=== PATIENT | male | born 1945 | race Caucasian/White ===

== ENCOUNTER → 2018-01-16 | Outpatient (CLI) | payer MEDICARE, MEDICAID ==
--- NOTE | 2018-01-16 09:57 | Diagnostic Imaging Report ---
PROCEDURE: CT abdomen and pelvis with contrast. TECHNIQUE: Multiple contiguous axial images were obtained through the abdomen and pelvis after administration of intravenous contrast. INDICATION: Abdominal pain. FINDINGS: The heart size is normal. There is some scarring or atelectasis in the lung bases. There is diffuse mucosal thickening in the stomach. The liver is normal in size without focal lesions. Gallbladder is surgically absent. There is no biliary ductal dilatation. There are some calcified granulomas in the spleen. The pancreas and adrenal glands are unremarkable. The kidneys are grossly normal in appearance. The abdominal aorta is nonaneurysmal. Bowel gas pattern is nonspecific. There is some diverticular disease without evidence of diverticulitis. There is no ascites. There is no free air. There are no focal inflammatory changes. Specifically, there is no CT evidence of appendicitis. There are mild degenerative changes in the spine. IMPRESSION: Diffuse mucosal thickening of the stomach. While this could conceivably be related to underdistention, the possibility of gastritis or underlying infiltrative process cannot be excluded. Recommend clinical correlation and if warranted followup with upper endoscopy. Diverticular disease without evidence of diverticulitis. No other acute abnormality in the abdomen or pelvis. Dictated by: Dictated on workstation # [id number]
== END ==
LOC: RAD 08:08
PROVIDERS: ATTEND Nurse Practitioner Family
DX: K57.30 Diverticulosis of large intestine without perforation or abscess without bleeding (principal); K31.89 Other diseases of stomach and duodenum; K59.00 Constipation, unspecified
CPT/HCPCS: 74177

== ENCOUNTER 2018-02-01 05:42 | Outpatient (CLI) | payer MEDICARE, MEDICAID ==
[~2018-02-01] VITALS: Ht 188 cm; Wt 79.8 kg
[2018-02-01] MEDS ORDERED: FAMO40TA6 PO (10:17)
[2018-02-01] MEDS ORDERED: PANT40TA3 PO (10:17)
[2018-02-01] MEDS ORDERED: METO-370 PO (10:17)
[2018-02-01] MEDS ORDERED: FLUT16SP22 NS (10:17)
[2018-02-01] MEDS ORDERED: DULO60CA58 PO (10:17)
[2018-02-01] MEDS ORDERED: GABA-490 PO (10:17)
[2018-02-01] MEDS ORDERED: ATOR20TA66 PO (10:17)
[2018-02-01] MEDS ORDERED: POLY17PO6 PO (10:17)
[2018-02-01] MEDS ORDERED: TRAZ150T72 PO (10:17)
[2018-02-01] MEDS ORDERED: BUDE10.2 IH (10:17)
[2018-02-01] MEDS ORDERED: UMEC62.5 IH (10:17)
[2018-02-01] MEDS ORDERED: SUCR1TAB PO (10:17)
[2018-02-01] MEDS ORDERED: LOSA100T8 PO (10:17)
[2018-02-01] MEDS ORDERED: SERT100T PO (10:17)
[2018-02-01] MEDS ORDERED: GABA800T2 PO (10:17)
[2018-02-01] MEDS ORDERED: [UNRECOGNIZED DRUG - CODE] PO ×2 (10:17)
[2018-02-01] MEDS ORDERED: RT-ALBUINH IH (10:17)
== END 2018-02-01 11:10 | disposition home or self-care (01) ==
LOC: PREOP 05:42
PROVIDERS: ATTEND Surgery
DX: Z01.818 Encounter for other preprocedural examination (principal)

== ENCOUNTER 2018-02-04 11:55 | Day surgery (SDC) | payer MEDICARE, MEDICAID ==
[~2018-02-04] VITALS: Ht 188 cm; Wt 79.8 kg
[~2018-02-04 11:55] MED LIST: ATOR20TA66 PO; BUDE10.2 IH; DULO60CA58 PO; FAMO40TA6 PO; FLUT16SP22 NS; GABA-490 PO; GABA800T2 PO; LOSA100T8 PO; METO-370 PO; PANT40TA3 PO; POLY17PO6 PO; RT-ALBUINH IH; SERT100T PO; SUCR1TAB PO; TRAZ150T72 PO; UMEC62.5 IH; [UNRECOGNIZED DRUG - CODE] PO
[2018-02-04] MEDS ORDERED: LACTATED RINGERS 1,000 ML IV ONE (12:01)
[2018-02-04] MEDS ORDERED: LACTATED RINGERS 1,000 ML IV STA (12:10)
[2018-02-04] MEDS ORDERED: HURRICAINE EXT TUBE (BENZOCAINE) XX PRN (12:15)
[2018-02-04] MEDS ORDERED: MEPERIDINE (DEMEROL) INJ 50 MG/ML ONE (12:58)
--- NOTE | 2018-02-04 13:13 | Progress Note-Pre Operative ---
Pre-Operative Progress Note H&P Reviewed The H&P was reviewed, patient examined and no changes noted. Time Seen by Provider: 13:10 Date H&P Reviewed: Feb 04, 2018 Time H&P Reviewed: 13:11 Pre-Operative Diagnosis: RUQ pain, Chronic Gastritis TAISHA CINTRON DO Feb 04, 2018 13:13
[2018-02-04] MEDS ORDERED: MEPERIDINE (DEMEROL) INJ 50 MG/ML IVP PRN (13:15)
[2018-02-04] MEDS ORDERED: PROPOFOL INJECTION 50 ML IV ONE (13:55)
[2018-02-04] MEDS ORDERED: MIDAZOLAM 2 MG/2 ML (VERSED) VIAL ONE ×2 (13:57→13:59)
--- NOTE | 2018-02-04 14:25 | Progress Note-Post Operative ---
Post-Operative Progess Note Surgeon (s)/Repossession Agent (s) Surgeon TAISHA CINTRON DO Repossession Agent: none Pre-Operative Diagnosis RUQ pain, Chronic Gastritis Post-Operative Diagnosis Duodenal polyp, Duodenitis Gastritis Hiatal Hernia Esophageal plaque Procedure & Operative Findings Date of Procedure 02/04/18 Procedure Performed/Findings EGD with snare polypectomy EGD with bx Anesthesia Type IV sedation by TURBINE MECHANIC Estimated Blood Loss Estimated blood loss (mL): scant Specimens/Packing Specimens Removed duodenal polyp x 2 Antral bx Esophageal bx TAISHA CINTRON DO Feb 04, 2018 14:25
--- NOTE | 2018-02-04 14:27 | Endoscopy Discharge Instruct ---
Endo Procedure/Findings Findings 1.: Polyp 2.: Gastritis 3.: Hiatal Hernia 4.: Other Findings (esophageal plaques) Discharge Instructions - Activity: You might feel a little sleepy until tomorrow. This is due to the medicine you received to relax you. Until tomorrow, you should: NOT drive a car, operate machinery or power tools. NOT drink any alcoholic beverages. NOT make any important decisions or sign importortant papers. Do not return to work until tomorrow, unless otherwise instructed. Resume previous activities tomorrow. Diet: Start by taking liquids. If you tolerate liquids, advance to solid food. make an appointment for one week Notify Physician - If you experience excessive bleeding, unusual abdominal pain, fever, or chest pain, contact your doctor immediately. Follow-Up: - I have received and understand the above instructions and will call my doctor if I have any further questions. Patient Signature Date Nurse Signature Other (Relationship) TAISHA CINTRON DO Feb 04, 2018 14:27
--- OUTSIDE RECORDS SUMMARY | 2018-02-04 14:35 | XMS REPORT ---
Author Author Reji Pretty Organization [employer] Address Unknown Phone Unavailable Care Team Providers Care Print Line Inspector Name Role Phone Reji Pretty CP Unavailable Allergies No Known Allergies Problems Problem Type Condition Code Onset Dates Condition Status Problem Gastro-esophageal reflux disease without esophagitis K21.9 Active Problem Anxiety disorder, unspecified F41.9 Active Problem Other chronic pain G89.29 Active Problem Essential (primary) hypertension I10 Active Problem Alcoholic liver disease, unspecified K70.9 Active Problem Anxiety disorder, unspecified F41.9 Active Problem Disorder of urea cycle metabolism, 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
--- OUTSIDE RECORDS SUMMARY | 2018-02-04 14:35 | XMS REPORT ---
Author Author Reji Pretty Organization [employer] Address Unknown Phone Unavailable Care Team Providers Care Cattle Knocker Name Role Phone Reji Pretty CP Unavailable [...]
--- OUTSIDE RECORDS SUMMARY | 2018-02-04 14:36 | XMS REPORT ---
Author Author Reji Pretty [facility] [employer] Address Unknown Phone Unavailable Care Team Providers Care Abstract Maker Name Role Phone Reji Pretty Unavailable Allergies No Known Allergies Problems Problem [...] obstructive pulmonary disease, unspecified J44.9 Active Medications Medication Code System Code Instructions Start Date End Date Status Dosage Atorvastatin Calcium [facility] [address]-18 20 MG Orally Once a day 1 tablet Escitalopram Oxalate [facility] [address]-78 20 MG Orally Once a day 0.5 tablet Trazodone HCl [facility] [address]-33 150 MG Orally Once a day - prescribed by radha-last filled 01/07/2016 2 tablets at bedtime Metoprolol Succinate ER [facility] [address]-55 50 MG Orally Once a day 1 tablet Aspirin [facility] [address]-40 325 MG Orally Once a day 1 tablet Pantoprazole Sodium [facility] [address]-25 40 MG Orally Once a day Nov 22, 2015 1 tablet Flonase [facility] [address]-46 50 MCG/ACT Nasally Once a day 1 spray in each nostril Ipratropium-Albuterol [facility] [address]-15 0.5-2.5 (3) MG/3ML Inhalation Four times a day 3 ml Advair Diskus [facility] [address]-21 250-50 MCG/DOSE Inhalation Twice a day June 15, 2015 1 puff immodium [facility] 0 Oral prn 1 tab Albuterol Sulfate [facility] [address]-76 (2.5 MG/3ML) 0.083% Inhalation Three times a day 3 ml Diovan [facility] [address]-34 160 MG Orally Twice a day 1 tablet Clonazepam [facility] [address]-24 1 MG Orally Twice a day 1 tablet Colace [facility] [address]-10 100 MG Orally 3 Times a day 1 capsule as needed Sucralfate [facility] [address]-16 1 GM Orally QID 1 tablet Results No Known Results Summary Purpose [employer] Submission
--- OUTSIDE RECORDS SUMMARY | 2018-02-04 14:36 | XMS REPORT ---
Author Author Norma Rodriguez [facility] [employer] Address Unknown Phone Unavailable Care Team Providers Care Radio Interference Expert Name Role Phone Norma Rodriguez Unavailable Allergies No Known Allergies Problems Problem Type Condition Code Onset Dates Condition Status Problem Essential (primary) hypertension I10 Active Problem Chronic obstructive pulmonary disease, unspecified J44.9 Active Problem Major depressive disorder, recurrent severe without psychotic features F33.2 Active Problem Mixed hyperlipidemia E78.2 Active Problem Other chronic pain G89.29 Active Problem Gastro-esophageal reflux disease without esophagitis K21.9 Active Problem Insomnia, unspecified G47.00 Active Problem Anxiety disorder, unspecified F41.9 Active Medications No Known Medications Results No Known Results Summary Purpose [employer] Submission
--- OUTSIDE RECORDS SUMMARY | 2018-02-04 14:36 | XMS REPORT ---
Author Author Marco Munoz Organization [facility] Address [address] [place], [place] [id number] Care Team Providers Care Director Television Name Role Phone Marco Munoz PCP Marco Munoz PreferredProvider Allergies and Adverse Reactions Name Reaction Notes fentanyl NSAIDS Reglan Ketorolac morphine Plan of Treatment Planned Activity Comments Planned Date Planned Time Plan/Goal ABDOMEN 2 VIEW DECUB/UPRIGHT 03/09/2017 12:00 AM CBC W/ AUTO DIFF (RFLX MAN DIFF IF IND). 05/25/2017 12:00 AM CMP 05/25/2017 12:00 AM CPK WITH CKMB 05/25/2017 12:00 AM CPK WITH CKMB 05/25/2017 12:00 AM Troponin I blood 05/25/2017 12:00 AM Chest x-ray, PA and lateral 05/25/2017 12:00 AM Culture and sensitivity of specimen 06/26/2017 12:00 AM Medications Active Name Start Date Estimated Completion Date SIG Comments Ventolin HFA 90 mcg/actuation inhalation HFA aerosol inhaler inhale 1 puff by inhalation route every 4 hours as needed Flonase Sensimist 27.5 mcg/actuation nasal spray,suspension inhale 1 puff by nasal route daily Saline Nasal 0.65 % nasal aerosol,spray apply 1 spray by nasal route daily as needed Symbicort 160-4.5 mcg/actuation inhalation HFA aerosol inhaler 03/21/2017 inhale 2 puffs by inhalation route 2 times per day in the morning and evening fluticasone 50 mcg/actuation nasal spray,suspension 04/04/2017 inhale 1 spray (50 mcg) in each nostril by intranasal route once daily Gaviscon 95-358 mg/15 mL oral suspension 05/25/2017 take 30 milliliters by oral route 4 times a day as needed lactulose 20 gram/30 mL oral solution 08/09/2017 take 30 milliliters by oral route 2 times a day as needed atorvastatin 20 mg oral tablet 09/05/2017 TAKE ONE TABLET BY MOUTH ONCE DAILY valsartan 160 mg oral tablet 09/05/2017 TAKE ONE TABLET (160mg) BY MOUTH TWICE DAILY pantoprazole 40 mg oral tablet,delayed release (DR/EC) 09/05/2017 TAKE ONE TABLET BY MOUTH DAILY sucralfate 1 gram oral tablet 09/05/2017 take 1 tablet by oral route 4 times a day as needed metoprolol succinate 50 mg oral tablet extended release 24 hr 09/05/2017 TAKE ONE TABLET BY MOUTH DAILY famotidine 40 mg oral tablet 09/05/2017 1 tablet po at HS gabapentin 400 mg oral capsule 09/05/2017 TAKE ONE CAPSULE BY MOUTH BID gabapentin 800 mg oral tablet 09/05/2017 take 1 tablet (800 mg) by oral route at HS thiamine HCl (vitamin B1) 100 mg oral tablet take 1 tablet by oral route daily Cymbalta 30 mg oral capsule,delayed release(DR/EC) take 3 capsules by oral route once a day (at bedtime) oxycodone 15 mg oral tablet 10/15/2017 11/14/2017 take 1 tablet by oral route TID, may have 1 tablet at HS PRN Chantix Starting Month Box 0.5 mg (11)- 1 mg (42) oral tablets,dose pack 2017 take as directed Incruse Ellipta 62.5 mcg/actuation inhalation blister with device 11/06/2017 inhale 1 puff (62.5 mcg) by inhalation route once daily at the same time each day trazodone 300 mg oral tablet take 1 tablet by oral route once a day (at bedtime) Name Start Date Expiration Date SIG Comments Cymbalta 60 mg oral capsule,delayed release(DR/EC) take 1 capsule by oral route 2 times a day mirtazapine 15 mg oral tablet take 3 tablets by oral route once a day ( at bedtime) quetiapine 25 mg oral tablet take 2 tablets by oral route once a day ( at bedtime) quetiapine 50 mg oral tablet 03/09/2017 03/09/2017 TAKE ONE TABLET (50mg) BY MOUTH AT BEDTIME Bactrim DS 800-160 mg oral tablet 06/26/2017 take 1 tablet by oral route every 12 hours for 7 days trazodone 150 mg oral tablet 09/05/2017 03/04/2018 take 1 tablet by oral route once a day (at bedtime) for 30 days mirtazapine 30 mg oral tablet 09/05/2017 1 tab po daily at HS duloxetine 60 mg oral capsule,delayed release(DR/EC) 09/05/2017 TAKE ONE CAPSULE BY MOUTH DAILY at HS duloxetine 30 mg oral capsule,delayed release(DR/EC) 09/05/2017 take 1 capsule by oral route QD in AM Discontinued Name Start Date Discontinued Date SIG Comments Multi Vitamin 9 mg iron/15 mL oral liquid 09/18/2017 oxycodone 5 mg oral capsule 02/15/2017 take 3 capsules by oral route 4 times a day oxycodone 5 mg oral capsule 02/23/2017 take 3 capsules by oral route TID , may have 3 tabs at HS PRN folic acid 1 mg oral tablet 09/05/2017 09/18/2017 TAKE ONE TABLET BY MOUTH DAILY Complete Senior oral tablet 09/05/2017 09/18/2017 take 1 tablet by oral route daily trazodone 100 mg oral tablet 11/07/2017 take 2.5 tablets by oral route once a day (at bedtime) Problem List Not available. Vital Signs Date Time BP-Sys(mm[Hg] BP-Sherry(mm[Hg]) HR(bpm) RR(rpm) Temp WT HT HC BMI BSA BMI Percentile O2 Sat(%) 10/15/2017 8:00:00 AM 142 mmHg 66 mmHg 66 bpm 16 rpm 98.1 F 187 lbs 73 in 24.6714 kg/m 2.0902 m 93 % 08/09/2017 1:49:00 PM 132 mmHg 74 mmHg 84 bpm 18 rpm 98.1 F 189.375 lbs 93 % 06/26/2017 9:36:00 AM 136 mmHg 76 mmHg 68 bpm 16 rpm 96 F 190.375 lbs 98 % 05/25/2017 4:02:00 PM 146 mmHg 72 mmHg 70 bpm 16 rpm 98 F 183 lbs 98 % 02/14/2017 5:50:00 PM 128 mmHg 68 mmHg 84 bpm 20 rpm 96.3 F 185 lbs 73 in 24.4076 kg/m 2.079 m 94 % Social History Name Description Comments Tobacco Current every day smoker assisted living currently at [facility] in [place] Alcohol Former History of Procedures Date Ordered Description Order Status 03/13/2017 12:00 AM X-RAY EXAM OF ABDOMEN Reviewed 10/15/2017 12:00 AM COMPLETE CBC W/AUTO DIFF WBC Reviewed 10/15/2017 12:00 AM COMPREHEN METABOLIC PANEL Reviewed 10/15/2017 12:00 AM LIPID PANEL Reviewed 10/15/2017 12:00 AM ASSAY THYROID STIM HORMONE Reviewed 10/15/2017 12:00 AM ASSAY OF FREE THYROXINE Reviewed Results Summary Date and Description Results 10/15/2017 10:05 AM WBC 6.4 RBC 5.57 HGB 17.8 HCT 53.0 MCV 95 MCH 32.0 MCHC 33.6 RDW SD 46 RDW CV 13.0 MPV 10.4 PLT 174 NRBC# 0.00 NRBC% 0.0 %NEUT 69.5 % LYMP 21.0 %MONO 6.7 %EOS 1.7 %BASO 0.9 #NEUT 4.48 #LYMP 1.35 #MONO 0.43 #EOS 0.11 #BASO 0.06 MANUAL DIFF NOT IND GLUCOSE 111 SODIUM 137 POTASSIUM 4.9 CHLORIDE 107 CO2 20 BUN 17 CREATININE 1.0 SGOT/AST 22 SGPT/ALT 14 ALK PHOS 94 TOTAL PROTEIN 7.4 ALBUMIN 4.4 TOTAL BILI 0.5 CALCIUM 9.6 AGE 72 GFR NonAA 74 GFR AA 90 eGFR 74 eGFR AA* >60 TRIGLYCERIDES 65 CHOLESTEROL 129 HDL 45 TOT CHOL/ HDL 2.9 LDL (CALC) 71 TSH 0.47 FREE T4 1.34 History Of Immunizations Not available. 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 History of falling shelter medication use History of sudden cardiac arrest successfully resuscitated Alcohol abuse COPD Hypertension Osteoarthritis of hip, unspecified Asthma Chronic pain Nicotine dependence CAD (coronary artery disease) GERD Atrial Fibrillation Low Back Pain Feb 15 2017 9:40AM Fatigue Feb 15 2017 9:40AM Depression with anxiety Feb 15 2017 9:40AM COPD (chronic obstructive pulmonary disease) Feb 15 2017 9:40AM CAD (coronary artery disease) Feb 15 2017 9:40AM GERD (gastroesophageal reflux disease) Feb 15 2017 9:40AM Hemiplegia affecting left nondominant side Feb 15 2017 9:40AM Hypertension Feb 15 2017 9:40AM Pain in right hip Feb 15 2017 9:40AM Other chronic pain Feb 15 2017 9:40AM Pain in right hand Feb 15 2017 9:40AM Pain in left hand Feb 15 2017 9:40AM Nocturia more than twice per night Feb 15 2017 9:40AM Benign prostatic hyperplasia with lower urinary tract symptoms Feb 15 2017 9: 40AM Other retention of urine Feb 15 2017 9:40AM BPH (benign prostatic hyperplasia) Feb 15 2017 9:40AM Snoring Feb 15 2017 9:40AM Hypoxia Feb 15 2017 9:40AM Unspecified abdominal pain Mar 09 2017 12:14PM Abdominal adhesions Mar 09 2017 12:14PM Constipation Mar 09 2017 12:14PM Unspecified abdominal pain Mar 13 2017 2:42PM Abdominal adhesions Mar 13 2017 2:42PM Constipation Mar 13 2017 2:42PM Chest pain May 25 2017 4:11PM GERD (gastroesophageal reflux disease) May 25 2017 4:11PM Constipation May 25 2017 4:11PM Lower extremity weakness May 25 2017 4:11PM Abscess Jun 26 2017 9:43AM Low Back Pain Aug 09 2017 1:57PM Chronic pain Aug 09 2017 1:57PM Hemiplegia affecting left nondominant side Aug 09 2017 1:57PM Pain in right hip Aug 09 2017 1:57PM Other chronic pain Aug 09 2017 1:57PM Insomnia Aug 09 2017 1:57PM Low Back Pain Oct 15 2017 8:07AM Chronic pain Oct 15 2017 8:07AM Fatigue Oct 15 2017 8:07AM Osteoarthritis of hip, unspecified Oct 15 2017 8:07AM Hypertension Oct 15 2017 8:07AM Hyperlipidemia Oct 15 2017 8:07AM Weakness of both legs Oct 15 2017 8:07AM Payers Insurance Name Company Name Plan Name Plan Number Policy Number Policy Group Number Start Date Medicare [facility] Medicare [facility] [id number] N/A [facility] [id number] N/A Medicare Part B Medicare Of [place] [id number] N/A Medicare Part A Medicare - Lab/Xray [id number] N/A History of Encounters Visit Date Visit Type Provider 10/15/2017 Office visit Marco Munoz CHIEF STEWARD/STEWARDESS 08/09/2017 Office visit Marco Munoz CHIEF STEWARD/STEWARDESS 06/26/2017 Office visit Marco Munoz CHIEF STEWARD/STEWARDESS 05/25/2017 Office visit Marco Munoz NP 02/14/2017 Office visit Marco Munoz NP
--- OUTSIDE RECORDS SUMMARY | 2018-02-04 14:36 | XMS REPORT ---
Author Author Satish Hurt [facility] Address [address] [place], [place] [id number] Care Team Providers Care Thread Checker Name Role Phone Satish Hurt PCP Marco Munoz PreferredProvider Allergies and Adverse [...] and sensitivity of specimen 06/26/2017 12:00 AM Abdomen 2View Decub/Upright- Main 01/07/2018 12:00 AM Complete metabolic profile 01/10/2018 12:[address] ABD AND PELVIS W/CONTRAST 01/11/2018 12:00 AM Medications Active Name Start Date Estimated Completion Date SIG Comments Ventolin HFA 90 mcg/actuation inhalation HFA aerosol inhaler inhale 1 puff by inhalation route every 4 hours as needed Flonase Sensimist 27.5 mcg/actuation nasal spray,suspension inhale 1 puff by nasal route daily Saline Nasal 0.65 % nasal aerosol,spray apply 1 spray by nasal route daily as needed Gaviscon 95-358 mg/15 mL oral suspension 05/25/2017 take 30 milliliters by oral route 4 times a day as needed atorvastatin 20 mg oral tablet 09/05/2017 TAKE ONE TABLET BY MOUTH ONCE DAILY pantoprazole 40 mg oral tablet,delayed release [...] (800 mg) by oral route at HS Cymbalta 30 mg oral capsule,delayed release(DR/EC) take 3 capsules by oral route once a day (at bedtime) Incruse Ellipta 62.5 mcg/actuation inhalation blister with device 11/06/2017 inhale 1 puff (62.5 mcg) by inhalation route once daily at the same time each day trazodone 300 mg oral tablet take 1 tablet by oral route once a day (at bedtime) Symbicort 160-4.5 mcg/actuation inhalation HFA aerosol inhaler 11/15/2017 inhale 2 puffs by inhalation route 2 times per day in the morning and evening losartan 100 mg oral tablet 11/27/2017 02/25/2018 take 1 tablet (100 mg) by oral route once daily for 30 days Systane (propylene glycol) 0.4-0.3 % ophthalmic (eye) drops 12/24/2017 instill 2 drops in affected eye 3 times a day as needed fluticasone 50 mcg/actuation nasal spray,suspension 12/27/2017 inhale 1 spray (50 mcg) in each nostril by intranasal route once daily oxycodone 15 mg oral tablet 01/07/2018 02/06/2018 take 1 tablet by oral route TID, may have 1 tablet at HS PRN Miralax 17 gram/dose oral powder 01/07/2018 use as directed by oral route daily as needed Name Start Date Expiration Date SIG Comments [...] route every 12 hours for 7 days lactulose 20 gram/30 mL oral solution 08/09/2017 take 30 milliliters by oral route 2 times a day as needed trazodone 150 mg oral tablet 09/05/2017 03/04/2018 [...] capsule by oral route QD in AM Chantix Starting Month Box 0.5 mg (11)- 1 mg (42) oral tablets,dose pack 2017 take as directed Discontinued Name Start Date Discontinued Date SIG Comments Multi Vitamin 9 mg iron/15 mL oral liquid 09/18/2017 oxycodone 5 mg oral capsule 02/15/2017 take 3 capsules by oral route 4 times a day oxycodone 5 mg oral capsule 02/23/2017 take 3 capsules by oral route TID , may have 3 tabs at HS PRN valsartan 160 mg oral tablet 09/05/2017 11/27/2017 TAKE ONE TABLET (160mg) BY MOUTH TWICE DAILY recalled folic acid 1 mg oral tablet 09/05/2017 09/18/2017 TAKE ONE TABLET BY MOUTH DAILY Complete Senior oral tablet 09/05/2017 09/18/2017 take 1 tablet by oral route daily thiamine HCl (vitamin B1) 100 mg oral tablet 11/30/2017 take 1 tablet by oral route daily trazodone 100 mg oral tablet 11/07/2017 take 2.5 tablets by oral route once a day (at bedtime) Problem List Not available. Vital Signs Date Time BP-Sys(mm[Hg] BP-Sherry(mm[Hg]) HR(bpm) RR(rpm) Temp WT HT HC BMI BSA BMI Percentile O2 Sat(%) 01/07/2018 1:55:00 PM 130 mmHg 60 mmHg 74 bpm 20 rpm 97.7 F 180.375 lbs 73 in 23.7974 kg/m 2.0528 m 95 % 10/15/2017 8:00:00 AM 142 mmHg 66 mmHg 66 bpm 16 rpm 98.1 F 187 lbs 73 in 24.67 kg/m2 2.09 m2 93 % 08/09/2017 1:49:00 PM 132 mmHg [...] every day smoker assisted living currently at [facility] in [place] Alcohol Former History of Procedures Date Ordered [...] Illness Name Date of Onset Comments Anxiety Disorder Depression Major Depression (Single Episode) Heart disease Atherosclerosis of coronary artery of [place] heart without angina pectoris Alzheimer's Disease Dementia in conditions classified elsewhere without behavioral disturbance Myocardial Infarction, History 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 History of falling buttermaker helper medication use History of sudden cardiac arrest [...] of both legs Oct 15 2017 8:07AM Abdominal pain Jan 07 2018 1:59PM Constipation Jan 07 2018 1:59PM Chronic pain Jan 07 2018 1:59PM Payers Insurance Name Company Name Plan Name Plan Number Policy Number Policy Group Number Start Date Medicare RHC Medicare RHC [id number] N/A [facility] [id number] N/A Medicare Part B Medicare Of [place] [id number] N/A Medicare Part A Medicare - Lab/Xray [id number] N/A History of Encounters Visit Date Visit Type Provider 01/07/2018 Office visit Satish Hurt DIANETICIST 10/15/2017 Office visit Marco Munoz BUILDING CARPENTER HELPER 08/09/2017 Office visit Marco Munoz BUILDING CARPENTER HELPER 06/26/2017 Office visit Marco Munoz NP 05/25/2017 Office visit Marco Munoz NP 02/14/2017 Office visit Marco Munoz BUILDING CARPENTER HELPER
--- OUTSIDE RECORDS SUMMARY | 2018-02-04 14:37 | XMS REPORT ---
Author Author Marco Munoz Organization [facility] Address [address] [place], [place] [id number] Care Team Providers Care Resident Associate Name Role Phone Marco Munoz PCP Marco Munoz PreferredProvider Allergies and Adverse Reactions Name Reaction Notes fentanyl NSAIDS Reglan Ketorolac morphine Plan of Treatment Not available. Medications Active Name Start Date Estimated Completion Date SIG Comments Ventolin HFA 90 mcg/actuation inhalation HFA aerosol inhaler inhale 1 puff by inhalation route every 4 hours as needed atorvastatin 20 mg oral tablet take 1 tablet (20 mg) by oral route once daily Symbicort 160-4.5 mcg/actuation inhalation HFA aerosol inhaler inhale 2 puffs by inhalation route 2 times per day in the morning and evening Cymbalta 60 mg oral capsule,delayed release(DR/EC) take 1 capsule by oral route 2 times a day famotidine 20 mg oral tablet take 2 tablets (40 mg) by oral route once daily at bedtime Flonase Sensimist 27.5 mcg/actuation nasal spray,suspension inhale 1 puff by nasal route daily folic acid 1 mg oral tablet take 1 tablet (1 mg) by oral route once daily gabapentin 400 mg oral capsule take 1 capsule by oral route TID with meals, 2 caps po at HS metoprolol succinate 50 mg oral tablet extended release 24 hr take 1 tablet (50 mg) by oral route once daily mirtazapine 15 mg oral tablet take 3 tablets by oral route once a day ( at bedtime) Multi Vitamin 9 mg iron/15 mL oral liquid Incruse Ellipta 62.5 mcg/actuation inhalation blister with device 02/14/2017 inhale 1 puff (62.5 mcg) by inhalation route once daily at the same time each day Complete Senior oral tablet take 1 tablet by oral route daily pantoprazole 40 mg oral tablet,delayed release (DR/EC) take 1 tablet ( 40 mg) by oral route once daily quetiapine 25 mg oral tablet take 2 tablets by oral route once a day ( at bedtime) Saline Nasal 0.65 % nasal aerosol,spray apply 1 spray by nasal route daily as needed sucralfate 1 gram oral tablet take 1 tablet by oral route 4 times a day as needed trazodone 100 mg oral tablet take 3 tablets by oral route once a day ( at bedtime) valsartan 80 mg oral tablet take 2 tablets by oral route 2 times a day B12 5,000-100 mcg sublingual lozenge dissolve 1 lozenge by sublingual route daily oxycodone 15 mg oral tablet 04/20/2017 05/20/2017 take 1 tablet by oral route TID, may have 1 tablet at HS PRN Discontinued Name Start Date Discontinued Date SIG Comments oxycodone 5 mg oral capsule 02/15/2017 take 3 capsules by oral route 4 times a day oxycodone 5 mg oral capsule 02/23/2017 take 3 capsules by oral route TID , may have 3 tabs at HS PRN Problem List Not available. Vital Signs Date Time BP-Sys(mm[Hg] BP-Sherry(mm[Hg]) HR(bpm) RR(rpm) Temp WT HT HC BMI BSA BMI Percentile O2 Sat(%) 02/14/2017 5:50:00 PM 128 mmHg 68 mmHg 84 bpm 20 rpm 96.3 F 185 lbs 73 in 24.41 kg/m2 2.08 m2 94 % Social History Name Description Comments Tobacco Current every day smoker assisted living History of Procedures Not available. Results Summary Not available. History Of Immunizations Not available. 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
--- OUTSIDE RECORDS SUMMARY | 2018-02-04 14:37 | XMS REPORT ---
Author Marco Murillo Organization [facility] Address [address] [place], [place] [id number] Care Team Providers Care Psychometrician Name Role Phone Marco Munoz PCP Marco Munoz PreferredProvider Allergies and Adverse Reactions Name Reaction Notes fentanyl NSAIDS Reglan Ketorolac morphine Plan of Treatment Planned Activity Comments Planned Date Planned Time Plan/Goal ABDOMEN 2 VIEW DECUB/UPRIGHT 03/09/2017 12:00 AM Medications Active Name Start Date Estimated Completion Date SIG Comments Ventolin HFA 90 mcg/actuation inhalation HFA aerosol inhaler inhale 1 puff by inhalation route every 4 hours as needed Cymbalta 60 mg oral capsule,delayed release(DR/EC) take 1 capsule by oral route 2 times a day Flonase Sensimist 27.5 mcg/actuation nasal spray,suspension inhale 1 puff by nasal route daily mirtazapine 15 mg oral tablet take 3 tablets by oral route once a day ( at bedtime) Multi Vitamin 9 mg iron/15 mL oral liquid Incruse Ellipta 62.5 mcg/actuation inhalation blister with device 02/14/2017 inhale 1 puff (62.5 mcg) by inhalation route once daily at the same time each day Complete Senior oral tablet take 1 tablet by oral route daily quetiapine 25 mg oral tablet take [...] may have 1 tablet at HS PRN Symbicort 160-4.5 mcg/actuation inhalation HFA aerosol inhaler 03/21/2017 inhale 2 puffs by inhalation route 2 times per day in the morning and evening Name Start Date Expiration Date SIG Comments pantoprazole 40 mg oral tablet,delayed release (DR/EC) 03/09/2017 03/09/2017 TAKE ONE TABLET BY MOUTH DAILY quetiapine 50 mg oral tablet 03/09/2017 03/09/2017 TAKE ONE TABLET (50mg) BY MOUTH AT BEDTIME metoprolol succinate 50 mg oral tablet extended release 24 hr 03/09/20172016 TAKE ONE TABLET BY MOUTH DAILY gabapentin 400 mg oral capsule 03/09/2017 03/09/2017 TAKE ONE CAPSULE BY MOUTH THREE TIMES DAILY WITH meals AND TAKE TWO CAPSULES AT BEDTIME trazodone 150 mg oral tablet 03/09/2017 03/09/2017 TAKE TWO TABLETS (300mg) BY MOUTH AT BEDTIME mirtazapine 45 mg oral tablet 03/09/2017 03/09/2017 TAKE ONE TABLET (45mg) BY MOUTH AT BEDTIME folic acid 1 mg oral tablet 03/09/2017 03/09/2017 TAKE ONE TABLET BY MOUTH DAILY valsartan 160 mg oral tablet 03/09/2017 03/09/2017 TAKE ONE TABLET (160mg) BY MOUTH TWICE DAILY duloxetine 60 mg oral capsule,delayed release(DR/EC) 03/09/2017 03/09/2017 TAKE ONE CAPSULE BY MOUTH TWICE DAILY atorvastatin 20 mg oral tablet 03/09/2017 03/09/2017 TAKE ONE TABLET BY MOUTH ONCE DAILY famotidine 20 mg oral tablet 03/09/2017 03/09/2017 TAKE TWO TABLETS BY MOUTH AT BEDTIME Discontinued Name Start Date Discontinued Date SIG [...] day smoker assisted living History of Procedures Date Ordered Description Order Status 03/13/2017 12:00 AM X-RAY EXAM OF ABDOMEN Reviewed Results Summary Not available. History Of Immunizations Not available. 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
--- OUTSIDE RECORDS SUMMARY | 2018-02-04 14:37 | XMS REPORT ---
Author Author Marco Munoz Organization [facility] Address [address] [place], [place] [id number] Care Team Providers Care Industrial Machine Assembler Name Role Phone Marco Munoz PCP Marco [...] (800 mg) by oral route at HS Incruse Ellipta 62.5 mcg/actuation inhalation blister with device 10/12/2017 inhale 1 puff (62.5 mcg) by inhalation route once daily at the same time each day thiamine HCl (vitamin B1) 100 mg oral tablet take 1 tablet by oral route daily trazodone 100 mg oral tablet take 2.5 tablets by oral route once a day ( at bedtime) Cymbalta 30 mg oral capsule,delayed release(DR/EC) take 3 capsules by oral route once a day (at bedtime) oxycodone 15 mg oral tablet 10/15/2017 11/14/2017 take 1 tablet by oral route TID, may have 1 tablet at HS PRN Name Start Date Expiration Date SIG Comments [...] take 1 tablet by oral route daily Problem List Not available. 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 [id number] N/A Medicare Part B Medicare Of [place] [id number] N/A Medicare Part A Medicare - Lab/Xray [id number] N/A History of Encounters Visit Date Visit Type Provider 10/15/2017 Office visit Marco Munoz SECONDARY MARKET MANAGER 08/09/2017 Office visit Marco Munoz SECONDARY MARKET MANAGER 06/26/2017 Office visit Marco Munoz SECONDARY MARKET MANAGER 05/25/2017 Office visit Marco Munoz NP 02/14/2017 Office visit Marco Munoz SECONDARY MARKET MANAGER
--- OUTSIDE RECORDS SUMMARY | 2018-02-04 14:37 | XMS REPORT ---
Author Marco Murillo Organization [facility] Address [address] [place], [place] [id number] Care Team Providers Care Bread Stacker Name Role Phone Marco Munoz PCP Marco [...] inhale 1 puff by nasal route daily Multi Vitamin 9 mg iron/15 mL oral liquid quetiapine 25 mg oral tablet take 2 [...] route 4 times a day as needed Incruse Ellipta 62.5 mcg/actuation inhalation blister with device 07/03/2017 inhale 1 puff (62.5 mcg) by inhalation route once daily at the same time each day lactulose 20 gram/30 mL oral solution 08/09/2017 [...] route 4 times a day as needed folic acid 1 mg oral tablet 09/05/2017 TAKE ONE TABLET BY MOUTH DAILY metoprolol succinate 50 mg oral tablet extended release 24 hr 09/05/2017 TAKE ONE TABLET BY MOUTH DAILY Complete Senior oral tablet 09/05/2017 take 1 tablet by oral route daily trazodone 150 mg oral tablet 09/05/2017 03/04/2018 take 1 tablet by oral route once a day (at bedtime) for 30 days famotidine 40 mg oral tablet 09/05/2017 1 tablet po at HS mirtazapine 30 mg oral tablet 09/05/2017 1 tab po daily at HS duloxetine 60 mg oral capsule,delayed release(DR/EC) 09/05/2017 TAKE ONE CAPSULE BY MOUTH DAILY at HS duloxetine 30 mg oral capsule,delayed release(DR/EC) 09/05/2017 take 1 capsule by oral route QD in AM gabapentin 400 mg oral capsule 09/05/2017 TAKE ONE CAPSULE BY MOUTH BID gabapentin 800 mg oral tablet 09/05/2017 take 1 tablet (800 mg) by oral route at HS oxycodone 15 mg oral tablet 09/06/2017 10/06/2017 take 1 tablet by oral route TID, may have 1 tablet at HS PRN Name Start Date Expiration Date SIG Comments mirtazapine 15 mg oral tablet take 3 tablets by oral route once a day ( at bedtime) quetiapine 50 mg oral tablet 03/09/2017 03/09/2017 TAKE ONE TABLET (50mg) BY MOUTH AT BEDTIME Bactrim DS 800-160 mg oral tablet 06/26/2017 take 1 tablet by oral route every 12 hours for 7 days Discontinued Name Start Date Discontinued Date SIG [...] HC BMI BSA BMI Percentile O2 Sat(%) 08/09/2017 1:49:00 PM 132 mmHg 74 mmHg [...] every day smoker assisted living currently at [facility] in [place] Alcohol Former History of Procedures Date Ordered Description Order Status 03/13/2017 12:00 AM X-RAY EXAM OF ABDOMEN Reviewed Results Summary Not available. History Of Immunizations Not available. 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 History of falling snf medication use History of sudden cardiac arrest [...] 2017 1:57PM Insomnia Aug 09 2017 1:57PM Payers Insurance Name Company Name Plan Name Plan Number Policy Number Policy Group Number Start Date Medicare RHC Medicare RHC [id number] N/A [facility] [id number] N/A Medicare Part B Medicare Of [place] [id number] N/A Medicare Part A Medicare - Lab/Xray [id number] N/A History of Encounters Visit Date Visit Type Provider 08/09/2017 Office visit Marco Munoz MILL HAND 06/26/2017 Office visit Marco Munoz NP 05/25/2017 Office visit Marco Munoz MILL HAND 02/14/2017 Office visit Marco Munoz NP
--- OUTSIDE RECORDS SUMMARY | 2018-02-04 14:38 | XMS REPORT ---
Author Marco Murillo Organization [facility] Address [address] [place], [place] [address] Care Team Providers Care Tower Attendant Name Role Phone Marco Munoz PCP Marco [...] may have 1 tablet at HS PRN pantoprazole 40 mg oral tablet,delayed release (DR/EC) [...] 03/09/2017 TAKE ONE TABLET BY MOUTH DAILY Discontinued Name Start Date Discontinued Date SIG [...] Heart disease Atherosclerosis of coronary artery of [place] heart without angina pectoris Alzheimer's Disease Dementia [...] 2017 12:14PM Constipation Mar 09 2017 12:14PM Payers Insurance Name Company Name Plan Name Plan Number Policy Number Policy Group Number Start Date Medicare Part B Medicare Of [place] [id number] N/A [facility] [id number] N/A History of Encounters Visit Date Visit Type Provider 02/14/2017 Office visit Marco Munoz NP
--- OUTSIDE RECORDS SUMMARY | 2018-02-04 14:38 | XMS REPORT ---
Author Marco Murillo Organization [facility] Address [address] [place], [place] [id number] Care Team Providers Care Vocational Evaluator Name Role Phone Marco Munoz PCP Unavailable Marco Munoz PreferredProvider Unavailable Allergies and Adverse Reactions Name Reaction Notes [...] 1 lozenge by sublingual route daily oxycodone 5 mg oral capsule take 3 capsules by oral route TID, may have 3 tabs at HS PRN Discontinued Name Start Date Discontinued Date SIG Comments oxycodone 5 mg oral capsule 02/15/2017 take 3 capsules by oral route 4 times a day Problem List Not available. 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
--- OUTSIDE RECORDS SUMMARY | 2018-02-04 14:38 | XMS REPORT ---
Author Marco Murillo Organization [facility] Address [address] [place], [place] [address] Care Team Providers Care Child Health Associate Name Role Phone Marco Munoz PCP [...] Vitamin 9 mg iron/15 mL oral liquid Complete Senior oral tablet take 1 tablet [...] dissolve 1 lozenge by sublingual route daily Symbicort 160-4.5 mcg/actuation inhalation HFA aerosol [...] daily at the same time each day oxycodone 15 mg oral tablet 08/09/2017 09/08/2017 take 1 tablet by oral route TID, may have 1 tablet at HS PRN lactulose 20 gram/30 mL oral solution 08/09/2017 take 30 milliliters by oral route 2 times a day as needed trazodone 150 mg oral tablet 08/09/2017 10/08/2017 take 1 tablet by oral route once a day (at bedtime) for 30 days Name Start Date Expiration Date SIG Comments [...] meals AND TAKE TWO CAPSULES AT BEDTIME mirtazapine 45 mg oral tablet [...] TAKE TWO TABLETS BY MOUTH AT BEDTIME Bactrim DS 800-160 [...] every day smoker assisted living currently at [facility] in [place] Alcohol Former History of Procedures Date Ordered Description Order Status 03/13/2017 12:00 AM X-RAY EXAM OF ABDOMEN Reviewed Results Summary Not available. History Of Immunizations Not available. 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
--- OUTSIDE RECORDS SUMMARY | 2018-02-04 14:38 | XMS REPORT ---
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
--- OUTSIDE RECORDS SUMMARY | 2018-02-04 14:38 | XMS REPORT ---
Author Marco Murillo Organization [facility] Address [address] [place], [place] [address] Care Team Providers Care Hydrotel Operator Name Role Phone Marco Munoz PCP Marco [...] Atherosclerosis of coronary artery of [place] heart without angina pectoris Alzheimer's Disease Dementia [...] Date Medicare Part B Medicare Of [place] [id number] N/A [facility] [id number] N/A History of Encounters Visit Date Visit Type Provider 02/14/2017 Office visit Marco Munoz NP
--- OUTSIDE RECORDS SUMMARY | 2018-02-04 14:39 | XMS REPORT ---
Author Marco Murillo Organization [facility] Address [address] [place], [place] [address] Care Team Providers Care Florist Name Role Phone Marco Munoz PCP Marco Munoz PreferredProvider Allergies and Adverse Reactions Name Reaction Notes fentanyl NSAIDS Reglan Ketorolac morphine Plan of Treatment Planned Activity Comments Planned Date Planned Time Plan/Goal ABDOMEN 2 VIEW DECUB/UPRIGHT 03/09/2017 12:00 AM ABDOMEN 2 VIEW DECUB/UPRIGHT 03/13/2017 12:00 AM Medications Active Name Start Date Estimated Completion Date SIG Comments Ventolin HFA 90 mcg/actuation inhalation HFA aerosol inhaler inhale 1 puff by inhalation route every 4 hours as needed Symbicort 160-4.5 mcg/actuation inhalation HFA [...] Heart disease Atherosclerosis of coronary artery of [place] heart without angina pectoris Alzheimer's Disease Dementia in conditions classified elsewhere without behavioral disturbance Myocardial Infarction, History 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
--- OUTSIDE RECORDS SUMMARY | 2018-02-04 14:39 | XMS REPORT ---
Author Marco Murillo Organization [facility] Address [address] [place], [place] [address] Care Team Providers Care Car And Yard Supervisor Name Role Phone Marco Munoz PCP Marco [...] route 4 times a day as needed oxycodone 15 mg oral tablet 06/13/2017 07/13/2017 take 1 tablet by oral route TID, may have 1 tablet at HS PRN Bactrim DS 800-160 mg oral tablet 06/26/2017 take 1 tablet by oral route every 12 hours for 7 days Name Start Date Expiration Date SIG [...] TAKE TWO TABLETS BY MOUTH AT BEDTIME Incruse Ellipta 62.5 mcg/actuation inhalation blister with device 06/12/201706/12/2017 inhale 1 puff (62.5 mcg) by inhalation route once daily at the same time each day Discontinued Name Start Date Discontinued Date SIG [...] HC BMI BSA BMI Percentile O2 Sat(%) 06/26/2017 9:36:00 AM 136 mmHg 76 mmHg [...] Heart disease Atherosclerosis of coronary artery of [place] heart without angina pectoris Alzheimer's Disease Dementia in conditions classified elsewhere without behavioral disturbance Myocardial Infarction, History 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
--- OUTSIDE RECORDS SUMMARY | 2018-02-04 14:39 | XMS REPORT ---
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
--- OUTSIDE RECORDS SUMMARY | 2018-02-04 14:39 | XMS REPORT ---
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
--- OUTSIDE RECORDS SUMMARY | 2018-02-04 14:40 | XMS REPORT | Continuity of Care Document ---
Author Author [facility] Address Unknown Phone Unavailable Care Team Providers Care Quality Assurance Monitor Name Role Phone ESTHELA CARLSON PCP Insurance Providers Payer Name Policy Number Subscriber Name Relationship Medicare A And B [id number] Caroline Larsen Sr 18 Self / Same As Patient [facility] [employer] [id number] Caroline Larsen Sr 18 Self / Same As Patient Advance Directives Directive Response Recorded Date/Time Advanced Directives Unknown 02/19/16 12:21pm Chief Complaint and Reason for Visit Chief Complaint Pain Reason for Visit Chronic pain Problems Active Problems Medical Problem Onset Date Status Accidental fall ~09/01/2013 Acute Acute low back pain 04/15/2013 Chronic Alcohol abuse ~09/26/2015 Acute At risk for falls Unknown Chronic Chest wall pain Unknown Chronic Chronic back pain 04/15/2013 Chronic Chronic low back pain 04/28/2013 Chronic Chronic pain ~06/21/2013 Chronic Chronic pain ~02/19/2016 Acute Contusion of right hip Unknown Chronic Contusion, hip Unknown Chronic Dental pain ~10/09/2013 Resolved Epistaxis ~06/11/2014 Resolved Fall on same level from slipping, tripping or stumbling ~07/14/2013 Acute History of fall Unknown Chronic Injury of upper extremity ~07/20/2013 Acute Left elbow pain Unknown Chronic Leg pain Unknown Chronic Pain of left calf Unknown Chronic Shoulder joint pain ~07/14/2013 Chronic Subtherapeutic international normalized ratio (INR) Unknown Chronic Medications Current Home Medications Medication Dose Units Route Directions Days/Qty Instructions Start Date Famotidine 40 Mg 40 Mg ORAL Daily 04/03/13 Atorvastatin 20 Mg 20 Mg ORAL Daily 06/03/14 Escitalopram Oxalate 20 Mg 20 Mg ORAL Daily 06/03/14 Metoprolol Tartrate (Lopressor) 50 Mg 50 Mg ORAL Twice A Day Omeprazole 20 Mg 20 Mg ORAL Twice A Day 06/03/14 Trazodone Hcl 150 Mg 150 Mg ORAL Bedtime 2 04/26/15 Oxycodone/Acetaminophen 1 Tab 1 Tab ORAL Four Times Daily as needed for Severe Pain 05/19/15 Nitroglycerin 0.4 Mg 0.4 Mg SUBLINGUAL Every 5 Minutes as needed for Angina 06/16/15 Past Home Medications Medication Directions Ordered Status Valsartan 40 Mg Tablet, Daily 04/03/13 Discontinued Trazodone Hcl 100 Mg Tablet, Daily 04/03/13 Discontinued Clopidogrel Bisulfate 75 Mg Tablet, Daily 04/03/13 Discontinued Oxycodone Hcl/Acetaminophen 1 Each Tablet, Six Times A Day 04/03/13 Discontinued Oxycodone Hcl/Acetaminophen 1 Each Tablet, 1 Each Oral Every 6 Hours Discontinued Oxycodone Hcl/Acetaminophen 1 Each Tablet, 1 Each Oral 06/21/13 Discontinued Oxycodone Hcl/Acetaminophen 1 Each Tablet, 1 Each Oral Every 6 Hours for Pain 06/21/13 Discontinued Tramadol Hcl (Ultram) 50 Mg Tablet, 50 Mg Oral Every 4HRS as needed for Pain 09/01/13 Discontinued Aspirin 81 Mg Tablet.dr, 81 Mg Oral Daily 06/03/14 Discontinued Clonazepam 0.5 Mg Tablet, 0.5 Mg Oral Bedtime 06/03/14 Discontinued Duloxetine Hcl 30 Mg Capsule.dr, 30 Mg Oral Daily 06/03/14 Discontinued Mirtazapine 30 Mg Tablet, 30 Mg Oral Bedtime 06/03/14 Discontinued Quetiapine Fumarate 100 Mg Tablet, 50 Mg Oral Bedtime 06/03/14 Discontinued Sucralfate (Carafate) 1 Gm Tablet, 1 Gm Oral Four Times Daily 06/03/14 Discontinued Valsartan 320 Mg Tablet, 320 Mg Oral Daily 06/03/14 Discontinued Oxycodone/Acetaminophen 1 Tab Tablet, 1 Tab Oral As Needed 06/03/14 Discontinued Warfarin Sodium 1 Mg Tablet, 1 Mg Oral Daily 06/03/14 Discontinued Warfarin (Coumadin) 1 Mg Tablet, 1 Mg Oral Daily 06/03/14 Discontinued Warfarin (Coumadin) 6 Mg Tablet, 6 Mg Oral Daily 06/11/14 Discontinued Social History Query Response Start Date Stop Date Smoking Status Current every day smoker Hospital Discharge Instructions No hospital discharge instructions. Plan of Care Discharge Date 02/19/16 2:09pm Disposition 01 HOME OR SELF-CARE Condition at Discharge Stable Instructions/Education Provided Total Hip Replacement (ED) Prescriptions See Medication Section Referrals ESTHELA CARLSON - Additional Instructions/Education Some of your test results may not be complete prior to your leaving the Emergency Department. The Emergency Department is not authorized to give test results over the phone. Please contact the doctor's office listed in this packet of information for your final results. Follow up with your primary care physician or return to the Emergency Department for worsening or worrisome symptoms. * Emergency Department phone number: [phone], x [phone]* MEDICAL RECORD If you need copies of your X-rays, call [phone]. If you need copies of your medical record, including lab results, a signed authorization for release of records will be required. A telephone call for release of Health Information is not allowed. BILLING Billing can sometimes be confusing and frustrating. To help avoid confusion in the future, please take a moment to acquaint yourself with the billing parties for services. [facility] Emergency Room Services [facility] Phys[facility] Patients will receive bills for services from the appropriate provider. If you have any questions about your [facility] bill, our staff will be happy to assist you. Please call [phone], and ask for the billing department. THANK YOU for choosing [facility] as your emergency care provider! Care Plan and Goals ~~Discharge Care Plan~~ Problem: Contusion, pain to affected area, fall. Goal: Decreased contusion and pain to affected area. Instructions: Apply ice to area for 15-20 minutes every 3-4 hours. Elevate extremity above the level of the heart, if applicable. Splint area with pillow or blanket to any chest/abdomen injuries. Use incentive spirometry as directed. Take at least 10 deep breaths per hour. Take medication(s) as directed. Follow up with regular physician or specialist as directed. Exercise as tolerated or directed by physician. Functional Status No functional status results. Allergies, Adverse Reactions, Alerts Allergen Type Severity Reaction Status Last Updated prochlorperazine edisylate Allergy Severe Active 09/27/15 metoclopramide HCl Allergy Severe Active 09/27/15 Morphine Allergy Severe Active 09/27/15 cefazolin Allergy Unknown Active 10/26/15 NSAIDS Allergy Unknown BLEEDING STOMACH Active 06/03/14 TORODOL Allergy Severe Active 04/03/13 Immunizations Name Given Type Status Date Influenza Vaccine Received if Current 01/07/15 Historical Historical Vital Signs Acute Vital Signs Vital Response Date/Time Temperature (Fahrenheit) 97.8 02/19/2016 2:08pm Pulse 102 bpm 02/19/2016 2:08pm Respirations 18 02/19/2016 2:08pm Height 6 ft 1 in Weight 143 lb Body Mass Index 18.0 kg/m^2 Results No known relevant diagnostic tests, laboratory data and/or discharge summary. Procedures No known history of procedures. Encounters Encounter Location Arrival/Admit Date Discharge/Depart Date Attending Provider Departed Emergency Room [facility] 02/19/16 12:04pm 02/19/16 2:09pm JARETT GIBSON MD Recent Diagnosis
--- OUTSIDE RECORDS SUMMARY | 2018-02-04 14:40 | XMS REPORT | Continuity of Care Document ---
Author Author [facility] Address Unknown Phone Unavailable Care Team Providers Care Vibration Engineer Name Role Phone ESTHELA CARLSON PCP Insurance Providers Payer Name Policy Number Subscriber Name Relationship Medicare A And B [id number] Caroline Larsen Sr 18 Self / Same As Patient [facility] [employer] [id number] Caroline Larsen Sr 18 Self / Same As Patient Advance Directives Directive Response Recorded Date/Time Advanced Directives No 10/26/15 8:09pm Chief Complaint and Reason for Visit Chief Complaint Injury Reason for Visit Accidental fall Problems Active Problems Medical Problem Onset Date Status Accidental fall ~09/01/2013 Acute Acute low back pain 04/15/2013 Chronic Alcohol abuse ~09/26/2015 Acute At risk for falls Unknown Chronic Chest wall pain Unknown Chronic Chronic back pain 04/15/2013 Chronic Chronic low back pain 04/28/2013 Chronic Chronic pain ~06/21/2013 Chronic Chronic pain ~09/26/2015 Acute Contusion of right hip Unknown Chronic [...] 20 Mg 20 Mg ORAL Daily 06/03/14 Clonazepam 0.5 Mg 0.5 Mg ORAL Bedtime 06/03/14 Escitalopram Oxalate 20 Mg 20 Mg ORAL Daily 06/03/14 Metoprolol Tartrate (Lopressor) 50 Mg 50 Mg ORAL Twice A Day Omeprazole 20 Mg 20 Mg ORAL Twice A Day 06/03/14 Sucralfate (Carafate) 1 Gm 1 Gm ORAL Four Times Daily 06/03/14 Trazodone Hcl 150 Mg 150 Mg [...] Tablet.dr, 81 Mg Oral Daily 06/03/14 Discontinued Duloxetine Hcl 30 Mg Capsule.dr, 30 Mg Oral Daily 06/03/14 Discontinued Mirtazapine 30 Mg Tablet, 30 Mg Oral Bedtime 06/03/14 Discontinued Quetiapine Fumarate 100 Mg Tablet, 50 Mg Oral Bedtime 06/03/14 Discontinued Valsartan 320 Mg Tablet, 320 [...] discharge instructions. Plan of Care Discharge Date 10/26/15 10:19pm Disposition 01 HOME OR SELF-CARE Condition at Discharge Stable Instructions/Education Provided Contusion (ED) Prescriptions See Medication Section Referrals ESTHELA CARLSON COUNSELING SPECIALIST - Additional Instructions/Education Ambulate with walker as before. Pain meds as previously Rx'd; see your pain management physician in [place]. Follow up with PCP within one week. Some of your test results may not [...] worrisome symptoms. * Emergency Department phone number: [phone], x [phone]* MEDICAL RECORD If you need copies of your X-rays, call [phone]. If you need copies of [...] the billing parties for services. SERVICE BILLING [facility] Emergency Room Services [facility] Physician Services [facility] X[facility] Patients will receive bills for services from the appropriate provider. If you have any questions about your [facility] bill, our staff will be happy to assist you. Please call [phone], and ask for the billing department. THANK YOU for choosing [facility] as your emergency care provider! Care Plan [...] Vital Signs Vital Response Date/Time Temperature (Fahrenheit) 98 09/27/2015 12:11am Pulse 75 bpm 10/26/2015 10:16pm Respirations 16 10/26/2015 10:16pm Height 6 ft 1 in Weight 149 lb Body Mass Index 19.0 kg/m^2 Results Laboratory Results Test Name Result Units Flags Reference Collection Date/Time Result Date/ Time Comments White Blood Count 7.92 10^3uL 4.0-11.0 09/26/2015 10:30pm 09/26/2015 10 :48pm Red Blood Count 5.21 10^6uL 4.50-5.50 09/26/2015 10:30pm 09/26/2015 10: 48pm Hemoglobin 17.3 g/dL H 13.5-17.0 09/26/2015 10:30pm 09/26/2015 10:48pm Hematocrit 47.60 % 39.00-50.00 09/26/2015 10:30pm 09/26/2015 10:48pm Mean Corpuscular Volume 91 FL 80-100 09/26/2015 10:30pm 09/26/2015 10: 48pm Mean Corpuscular Hemoglobin 33.2 PG 26.0-34.0 09/26/2015 10:30pm 2015 10:48pm Mean Corpuscular Hemoglobin Concent 36.3 g/dL 31.0-37.0 09/26/2015 10: 30pm 09/26/2015 10:48pm Red Cell Distribution Width 13.3 % 11.8-15.6 09/26/2015 10:30pm 2015 10:48pm Platelet Count 242 10^3uL 150-450 09/26/2015 10:30pm 09/26/2015 10: 48pm Mean Platelet Volume 9.4 FL 6.0-9.5 09/26/2015 10:30pm 09/26/2015 10: 48pm Neutrophils (%) (Auto) 60 % 51-67 09/26/2015 10:30pm 09/26/2015 10: 48pm Lymphocytes (%) (Auto) 29 % 20-46 09/26/2015 10:30pm 09/26/2015 10: 48pm Monocytes (%) (Auto) 7 % 3-11 09/26/2015 10:30pm 09/26/2015 10:48pm Eosinophils (%) (Auto) 2 % 0-4 09/26/2015 10:30pm 09/26/2015 10:48pm Basophils (%) (Auto) 0 % 0-2 09/26/2015 10:30pm 09/26/2015 10:48pm Neutrophils # (Auto) 4.8 X10^3 09/26/2015 10:30pm 09/26/2015 10:48pm Lymphocytes # (Auto) 2.3 X10^3 09/26/2015 10:30pm 09/26/2015 10:48pm Monocytes # (Auto) 0.6 X10^3 09/26/2015 10:30pm 09/26/2015 10:48pm Eosinophils # (Auto) 0.2 10^3uL 09/26/2015 10:30pm 09/26/2015 10: 48pm Basophils # (Auto) 0.0 10^3uL 09/26/2015 10:30pm 09/26/2015 10:48pm Volume Urine Centrifuged 12 mL 09/26/2015 10:30pm 09/26/2015 10: 59pm Urine Collection Type CLEAN CATCH 09/26/2015 10:30pm 09/26/2015 10: 59pm Urine Color Yellow 09/26/2015 10:30pm 09/26/2015 10:58pm Urine Clarity Clear 09/26/2015 10:30pm 09/26/2015 10:58pm Urine pH 5.5 5.0 - 8.0 09/26/2015 10:30pm 09/26/2015 10:58pm Urine Specific [place] 1.010 1.005-1.030 09/26/2015 10:30pm 2015 10:58pm Urine Protein Negative Negative 09/26/2015 10:30pm 09/26/2015 10: 58pm Urine Glucose (UA) Negative Negative 09/26/2015 10:30pm 09/26/2015 10 :58pm Urine RBC (Auto) 1+ H Negative 09/26/2015 10:30pm 09/26/2015 10:58pm Urine Ketones Negative Negative 09/26/2015 10:30pm 09/26/2015 10: 58pm Urine Nitrite Negative Negative 09/26/2015 10:30pm 09/26/2015 10: 58pm Urine Bilirubin Negative Negative 09/26/2015 10:30pm 09/26/2015 10: 58pm Urine Urobilinogen 0.2 mg/dL 0.2-1.0 09/26/2015 10:30pm 09/26/2015 10: 58pm Urine Leukocyte Esterase Negative Negative 09/26/2015 10:30pm 2015 10:58pm Urine RBC 0-2 /HPF 09/26/2015 10:30pm 09/26/2015 10:59pm Urine WBC None Seen /HPF 09/26/2015 10:30pm 09/26/2015 10:59pm Urine Bacteria Rare /HPF 09/26/2015 10:30pm 09/26/2015 10:59pm Urine Squamous Epithelial Cells None /LPF 09/26/2015 10:30pm 2015 10:59pm Sodium Level 143 mmol/L 135-150 09/26/2015 10:30pm 09/26/2015 10:56pm Potassium Level 3.8 mmol/L 3.5-5.1 09/26/2015 10:30pm 09/26/2015 10: 56pm Chloride Level 107 mmol/L 98-108 09/26/2015 10:30pm 09/26/2015 10:56pm Carbon Dioxide Level 23 mmol/L 22-29 09/26/2015 10:30pm 09/26/2015 10: 56pm Anion Gap 16.2 MEQ/L H 3-15 09/26/2015 10:30pm 09/26/2015 10:56pm Blood Urea Nitrogen 15 mg/dL 7-18 09/26/2015 10:30pm 09/26/2015 10: 56pm Creatinine 0.78 mg/dL L 0.8-1.5 09/26/2015 10:30pm 09/26/2015 10:56pm BUN/Creatinine Ratio 19 10-20 09/26/2015 10:30pm 09/26/2015 10:56pm Estimat Glomerular Filtration Rate 119.4 09/26/2015 10:30pm 2015 10:56pm Estimated GFR (Non- 98.7 09/26/2015 10:30pm 2015 10:56pm Glucose Level 92 mg/dL # 70-110 09/26/2015 10:30pm 09/26/2015 10:56pm Calculated Osmolality 276 mosm/L L 280-300 09/26/2015 10:30pm 2015 10:56pm Calcium Level 9.4 mg/dL 8.8-10.8 09/26/2015 10:30pm 09/26/2015 10:56pm Calcium/Ionized Calcium Ratio 4.1 mg/dL 3.8-4.6 09/26/2015 10:30pm 10:56pm Total Bilirubin 0.7 mg/dL 0.1-1.0 09/26/2015 10:30pm 09/26/2015 10: 56pm Alkaline Phosphatase 62 U/L 38-126 09/26/2015 10:30pm 09/26/2015 10: 56pm Aspartate Amino Transf (AST/SGOT) 29 U/L 15-37 09/26/2015 10:30pm 09/25 10:56pm Alanine Aminotransferase (ALT/SGPT) 34 U/L 30-65 09/26/2015 10:30pm 10:56pm Total Protein 7.3 g/dL 6.4-8.5 09/26/2015 10:30pm 09/26/2015 10:56pm Albumin 4.4 g/dL 3.4-5.0 09/26/2015 10:30pm 09/26/2015 10:56pm Albumin/Globulin Ratio 1.517 1.1-1.8 09/26/2015 10:30pm 09/26/2015 10 :56pm Serum Alcohol 190.0 mg/dL H 10-80 09/26/2015 10:30pm 09/26/2015 11:44pm Pending Laboratory Results Test Name Collection Date/Time Procedures Procedure Status Date Provider(s) COMPREHEN METABOLIC PANEL Completed 09/26/15 URINALYSIS AUTO W/O SCOPE Completed 09/26/15 MICROSCOPIC EXAM OF URINE Completed 09/26/15 COMPLETE CBC W/AUTO DIFF WBC Completed 09/26/15 HYDRATION IV INFUSION INIT Completed 09/26/15 EMERGENCY DEPT VISIT Completed 09/26/15 Completed 09/26/15 Completed 09/26/15 Drug tests(s), presumptive, any number of drug classes; any Completed Drug test(s), definitive, utilizing drug identification meth Completed Completed 09/26/15 Encounters Encounter Location Arrival/Admit Date Discharge/Depart Date Attending Provider Departed Emergency Room [facility] 10/26/15 8:09pm 10/26/15 10:19pm AWAIS OLMOS MD Departed Emergency Room [facility] 09/26/15 9:24pm 09/27/15 12:12am JARETT GIBSON MD Recent Diagnosis
--- OUTSIDE RECORDS SUMMARY | 2018-02-04 14:40 | XMS REPORT ---
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
--- OUTSIDE RECORDS SUMMARY | 2018-02-04 14:40 | XMS REPORT | Continuity of Care Document ---
Author Author [facility] Address Unknown Phone Unavailable Care Team Providers Care Senior Adults Director Name Role Phone Shady Burrell PCP Insurance Providers Payer Name Policy Number Subscriber Name Relationship Medicare A And B [id number] Caroline Larsen 18 Self / Same As Patient [facility] [employer] [id number] Caroline Larsen 18 Self / Same As Patient Advance Directives Directive Response Recorded Date/Time Advanced Directives No 04/26/15 12:25pm Chief Complaint and Reason for Visit Chief Complaint Pain Reason for Visit Accidental fall [id number] Problems Active Problems Medical Problem Onset Date Status Accidental fall ~09/01/2013 Acute Acute low back pain 04/15/2013 Chronic At risk for falls Unknown Chronic Chronic back pain 04/15/2013 Chronic Chronic low back pain 04/28/2013 Chronic Chronic pain ~06/21/2013 Chronic Contusion, hip Unknown Acute Dental pain ~10/09/2013 Resolved Epistaxis ~06/11/2014 Acute Fall on same level from slipping, tripping or stumbling ~07/14/2013 Acute Injury of upper extremity ~07/20/2013 Acute Leg pain Unknown Chronic Pain of left [...] Mg 150 Mg ORAL Bedtime 2 04/26/15 Past Home Medications Medication Directions Ordered Status [...] discharge instructions. Plan of Care Discharge Date 04/26/15 1:25pm Disposition 01 HOME OR SELF-CARE Condition at Discharge Stable Instructions/Education Provided Contusion (ED) Prescriptions See Medication Section Referrals Indra,Shady S - Additional Instructions/Education ED DAINA if any worse. Follow up with your doctor. Some of your test results may not [...] worrisome symptoms. * Emergency Department phone number: [phone], x [phone]* MEDICAL RECORD If you need copies of your X-rays, call [phone] x [phone]. If you need copies of [...] services. SERVICE BILLING [facility] Emergency Room Services [facility] Physician Services [facility] X-[facility] Patients will receive bills for services from the appropriate provider. If you have any questions about your [facility] bill, our staff will be happy to assist you. Please call [phone], and ask for the billing department. THANK YOU for choosing [facility] as your emergency care provider! Care [...] Last Updated prochlorperazine edisylate Allergy Severe Active 04/03/13 prochlorperazine maleate Allergy Severe Active 04/03/13 metoclopramide HCl Allergy Severe Active 04/03/13 Morphine Allergy Severe Active 04/03/13 cefazolin Allergy Unknown Active 06/03/14 NSAIDS Allergy Unknown BLEEDING STOMACH Active 06/03/14 TORODOL Allergy Severe Active 04/03/13 Immunizations Name Given Type Status Date Influenza Vaccine Received if Current 01/07/15 Historical Historical Vital Signs Acute Vital Signs Vital Response Date/Time Temperature (Fahrenheit) 97.7 04/26/2015 1:28pm Pulse 98 bpm 04/26/2015 1:28pm Respirations 18 04/26/2015 1:28pm Height 6 ft 1 in Weight 144 lb Body Mass Index 19.0 kg/m^2 Results No known relevant diagnostic tests, laboratory data and/or discharge summary. Procedures No known history of procedures. Encounters Encounter Location Arrival/Admit Date Discharge/Depart Date Attending Provider Departed Emergency Room [facility] 04/26/15 12:21pm 04/26/15 1:25pm FIONA RETANA MD Recent Diagnosis
--- OUTSIDE RECORDS SUMMARY | 2018-02-04 14:41 | XMS REPORT | Continuity of Care Document ---
Author Author [facility] Address Unknown Phone Unavailable Care Team Providers Care Case Briefer Name Role Phone ESTHELA CARLSON PCP Insurance Providers Payer Name Policy Number Subscriber Name Relationship Medicare A And B [id number] Caroline Larsen Sr 18 Self / Same As Patient [facility] [employer] [id number] Caroline Larsen Sr 18 Self / Same As Patient Advance Directives Directive Response Recorded Date/Time Advanced Directives No 09/26/15 9:36pm Chief Complaint and Reason for Visit Chief Complaint Pain Reason for Visit Alcohol abuse Chronic pain Problems Active Problems Medical Problem Onset Date Status Accidental fall ~09/01/2013 Acute Acute low back pain 04/15/2013 Chronic Alcohol abuse Unknown Acute At risk for falls Unknown Chronic Chest wall pain Unknown Chronic Chronic back pain 04/15/2013 Chronic Chronic low back pain 04/28/2013 Chronic Chronic pain ~06/21/2013 Chronic Chronic pain Unknown Acute Contusion of right hip Unknown Chronic [...] discharge instructions. Plan of Care Discharge Date 09/27/15 12:12am Disposition 01 HOME OR SELF-CARE Condition at Discharge Stable Instructions/Education Provided Chronic Pain Management (ED) Prescriptions See Medication Section Referrals ESTHELA CARLSON RESIDENTIAL CASE MANAGER - Additional Instructions/Education Follow up with primary pain management Doctor Some of your test results may not [...] worrisome symptoms. * Emergency Department phone number: [phone], x [phone]* MEDICAL RECORD If you need copies of your X-rays, call [phone]. If you need copies of [...] the billing parties for services. SERVICE BILLING [employer] Emergency Room Services [facility] Physician Services [facility] X-[facility] Patients will receive bills for services from the appropriate provider. If you have any questions about your [facility] bill, our staff will be happy to assist you. Please call [phone], and ask for the billing department. THANK YOU for choosing [facility] as your emergency care provider! Care Plan and Goals ~~Discharge Care Plan~~ Problem: Back pain Goal: Decreased level of pain. Return to usual activities. Instructions: Take medication(s) as directed; follow up with your primary care physician as directed; follow patient home care instructions. Apply ice or heat to site for comfort. Functional Status No functional status results. Allergies, Adverse Reactions, Alerts Allergen Type Severity Reaction Status Last Updated prochlorperazine edisylate Allergy Severe Active 07/01/15 prochlorperazine maleate Allergy Severe Active 07/01/15 metoclopramide HCl Allergy Severe Active 07/01/15 Morphine Allergy Severe Active 07/01/15 cefazolin Allergy Unknown Active 07/01/15 NSAIDS Allergy Unknown BLEEDING STOMACH Active 06/03/14 TORODOL Allergy Severe Active 04/03/13 Immunizations Name Given Type Status Date Influenza Vaccine Received if Current 01/07/15 Historical Historical Vital Signs Acute Vital Signs Vital Response Date/Time Temperature (Fahrenheit) 98 09/27/2015 12:11am Pulse 74 bpm 09/27/2015 12:11am Respirations 18 09/27/2015 12:11am Height 6 ft 1 in Weight 154 lb Body Mass Index 20.0 kg/m^2 Results Laboratory Results Test Name Result [...] 8.0 09/26/2015 10:30pm 09/26/2015 10:58pm Urine Specific [place] 1.010 1.005-1.030 09/26/2015 10:30pm 2015 10:58pm Urine [...] mg/dL H 10-80 09/26/2015 10:30pm 09/26/2015 11:44pm Procedures No known history of procedures. Encounters Encounter Location Arrival/Admit Date Discharge/Depart Date Attending Provider Departed Emergency Room [facility] 09/26/15 9:24pm 09/27/15 12:12am JARETT GIBSON MD Recent Diagnosis
--- OUTSIDE RECORDS SUMMARY | 2018-02-04 14:41 | XMS REPORT | Continuity of Care Document ---
Author Author [facility] Address Unknown Phone Unavailable Care Team Providers Care Php Magento Developer Name Role Phone ESTHELA CARLSON PCP Insurance Providers Payer Name Policy Number Subscriber Name Relationship Medicare A And B [id number] Caroline Larsen Sr 18 Self / Same As Patient [employer] [id number] Caroline Larsen Sr 18 Self / Same As Patient Advance Directives Directive Response Recorded Date/Time Advanced Directives No 06/16/15 1:56pm Chief Complaint and Reason for Visit Chief Complaint Cardiac Complaint Reason for Visit Chest wall pain Problems Active Problems Medical Problem Onset Date Status Accidental fall ~09/01/2013 Acute Acute low back pain 04/15/2013 Chronic At risk for falls Unknown Chronic Chest wall pain Unknown Acute Chronic back pain 04/15/2013 Chronic Chronic low back pain 04/28/2013 Chronic Chronic pain ~06/21/2013 Chronic Contusion of right hip Unknown Acute Contusion, hip Unknown Acute Dental pain ~10/09/2013 Resolved Epistaxis ~06/11/2014 Acute Fall on same level from slipping, tripping or stumbling ~07/14/2013 Acute History of fall Unknown Acute Injury of upper extremity ~07/20/2013 Acute [...] for Pain 09/01/13 Discontinued Aspirin 81 Mg Tablet.dr 81 Mg Oral Daily 06/03/14 Discontinued Duloxetine Hcl 30 Mg Capsule.dr 30 Mg Oral Daily 06/03/14 Discontinued Mirtazapine [...] discharge instructions. Plan of Care Discharge Date 06/16/15 3:09pm Disposition 01 HOME OR SELF-CARE Condition at Discharge Stable Instructions/Education Provided Nitroglycerin (By mouth) Chest Pain (ED) Costochondritis (ED) Prescriptions See Medication Section Referrals ESTHELA CARLSON - Additional Instructions/Education Let your family doctor and case hardener know that you have been having sharp chest pains for the last month. Keep your follow up appt with your case hardener in [place] on the . Take nitroglycerine 1 tablet under your tongue every 5-10 minutes as needed for angina (chest pain due to your heart, usually not sharp pain but more like pressure or heaviness like someone sitting on your chest). The nitroglycerine may cause your blood pressure to drop suddenly, so alway lie down while on it. Continue to take aspirin 81 mg every day and stop smoking. Your chest pain today is likely due to inflammation in your rib cartilages where they meet your sternum (breast bone), and may respond to taking Motrin or similar for a few days. Return to the ER if you pain comes back. Some of your test results may not [...] worrisome symptoms. * Emergency Department phone number: [phone], x [phone]* MEDICAL RECORD If you need copies of your X-rays, call [phone] x [phone]. If you need copies of [...] the billing parties for services. SERVICE BILLING [employer]STITUTION [employer]Y Emergency Room Services [facility] Physician Services [facility] X-rays [facility] Patients will receive bills for services from the appropriate provider. If you have any questions about your [facility] bill, our staff will be happy to assist you. Please call [phone], and ask for the billing department. THANK YOU for choosing [facility] as your emergency care provider! Care Plan and Goals ~~Discharge Care Plan~~ Problem: Chest, epigastric or chest wall pain Goal: Decreased pain Instructions: Take medication(s) as directed. Follow home discharge instructions. Follow up with primary care physician or case hardener as directed. Functional Status No functional status results. Allergies, Adverse Reactions, Alerts Allergen Type Severity Reaction Status Last Updated prochlorperazine edisylate Allergy Severe Active 06/16/15 prochlorperazine maleate Allergy Severe Active 06/16/15 metoclopramide HCl Allergy Severe Active 06/16/15 Morphine Allergy Severe Active 06/16/15 cefazolin Allergy Unknown Active 06/16/15 NSAIDS Allergy Unknown BLEEDING STOMACH Active 06/03/14 TORODOL Allergy Severe Active 04/03/13 Immunizations Name Given Type Status Date Influenza Vaccine Received if Current 01/07/15 Historical Historical Vital Signs Acute Vital Signs Vital Response Date/Time Temperature (Fahrenheit) 98.6 06/16/2015 1:56pm Pulse 82 bpm 06/16/2015 2:07pm Respirations 28 06/16/2015 1:56pm Height 6 ft 1 in Weight 142 lb Body Mass Index 18.0 kg/m^2 Results Pending Laboratory Results Test Name Collection Date/Time Procedures Procedure Status Date Provider(s) X-RAY EXAM OF PELVIS Completed 05/19/15 X-RAY EXAM HIP UNI 2-3 VIEWS Completed 05/19/15 THER/PROPH/DIAG INJ SC/IM Completed 05/19/15 EMERGENCY DEPT VISIT Completed 05/19/15 Completed 05/19/15 Completed 05/19/15 Encounters Encounter Location Arrival/Admit Date Discharge/Depart Date Attending Provider Departed Emergency Room [facility] 06/16/15 1:51pm 06/16/15 3:09pm KEYA JENKINS DO Departed Emergency Room [facility] 05/19/15 8:26pm 05/19/15 10:25pm AWAIS OLMOS MD Recent Diagnosis
--- OUTSIDE RECORDS SUMMARY | 2018-02-04 14:41 | XMS REPORT | Continuity Of Care Document ---
Author Author [facility] Organization [facility] Address [address] [place] [address] Phone Care Team Providers Care Tinsmith Helper Name Role Phone UNASSIGNED, ED PHYSICIAN Unavailable Unavailable MITRA STREETER DO PP DAVE JARVIS DO AT Results Lab Results Visit/Account #[id number] (November 08, 2016 8:41pm - November 09, 2016 4:56am) Test Result Date/Time COMPLETE BLOOD COUNT WHITE BLOOD COUNT(4.0-11.0 10E3/UL) 8.4 10E3/UL November 08, 2016 9:29pm RED BLOOD COUNT(4.50-5.90 10E6/UL) 5.18 10E6/UL November 08, 2016 9:29pm HEMOGLOBIN(13.5-17.5 G/DL) 17.4 G/DL November 08, 2016 9:29pm HEMATOCRIT(41.0-53.0 %) 50.4 % November 08, 2016 9:29pm MEAN CORPUSCULAR VOLUME(82.0-100.0 FL) 97.3 FL November 08, 2016 9:29pm MEAN CORPUSCULAR HEMOGLOBIN(26.0-34.0 PG) 33.6 PG November 08, 2016 9:29pm MEAN CORPUSCULAR HGB CONC(31.5-36.5 G/DL) 34.5 G/DL November 08, 2016 9:29pm RED CELL DISTRIBUTION WIDTH(11.5-14.5 %) 13.3 % November 08, 2016 9:29pm 777-3: PLATELET COUNT(150-450 10E3/UL) 149 10E3/UL November 08, 2016 9:29pm MEAN PLATELET VOLUME(8.2-12.4 FL) 9.3 FL November 08, 2016 9:29pm NUCLEATED RBCS (AUTO)(0-0 %) 0 % November 08, 2016 9:29pm UA WITH SCREEN FOR CULTURE COLOR,URINE YELLOW November 09, 2016 1:15am CLARITY,URINE CLEAR November 09, 2016 1:15am GLUCOSE, URINE(NEGATIVE MG/DL) NEGATIVE MG/DL November 09, 2016 1:15am URINE BILIRUBIN(NEGATIVE) NEGATIVE November 09, 2016 1:15am KETONES,URINE(NEGATIVE MG/DL) NEGATIVE MG/DL November 09, 2016 1:15am URINE SPECIFIC GRAVITY(1.001-1.035) 1.017 November 09, 2016 1:15am URINE BLOOD(NEGATIVE) NEGATIVE November 09, 2016 1:15am URINE PH(5.0-9.0) 7.5 November 09, 2016 1:15am URINE PROTEIN(Less than 20 MG/DL) TRACE MG/DL November 09, 2016 1:15am URINE UROBILINOGEN(0.2-1.0 MG/DL) 0.2-1.0 MG/DL November 09, 2016 1:15am URINE NITRITE(NEGATIVE) NEGATIVE November 09, 2016 1:15am LEUKOCYTE ESTERASE ,URINE(NEGATIVE) TRACE November 09, 2016 1:15am URINE RBCS(0-3 /HPF) 13-20 /HPF November 09, 2016 1:15am URINE WBCS(0-3 /HPF) 4-7 /HPF November 09, 2016 1:15am URINE EPITHELIAL CELLS(0-3 /HPF) 0-3 /HPF November 09, 2016 1:15am URINE HYALINE CASTS(0-3 /LPF) 0-3 /LPF November 09, 2016 1:15am URINE BACTERIA(NEGATIVE /HPF) NEGATIVE /HPF November 09, 2016 1:15am URINE CULTURE TO FOLLOW November 09, 2016 1:15am URINE MICROSCOPIC REQUIRED YES November 09, 2016 1:15am COMPLETE METABOLIC PROFILE GLUCOSE(70-110 MG/DL) 105 MG/DL November 08, 2016 9:29pm BLOOD UREA NITROGEN(6-20 MG/DL) 26 MG/DL November 08, 2016 9:29pm CREATININE(0.50-1.20 MG/DL) 1.20 MG/DL November 08, 2016 9:29pm EST GLOMERULAR FILTRATION RATE(Greater than or equal to 60) Greater than or equal to 60 Result Comments: If the patient is of -[place] descent/extraction multiply the eGFR value by 1.212 to obtain the actual eGFR. >=60 mg/dL Normal 30-59 mg/dL Moderate Kidney Disease 15-29 mg/dL Severe Kidney Disease <15 mg/dL Kidney Failure If the patient is of -[place] descent/extraction multiply the eGFR value by 1.212 to obtain the actual eGFR. >=60 mg/dL Normal 30-59 mg/dL Moderate Kidney Disease 15-29 mg/dL Severe Kidney Disease <15 mg/dL Kidney Failure November 08, 2016 9:29pm BUN CREATININE RATIO(10.0-20.0 RATIO) 22.0 RATIO November 08, 2016 9:29pm SODIUM(135-145 MMOL/L) 138 MMOL/L November 08, 2016 9:29pm POTASSIUM(3.6-5.0 MMOL/L) 4.3 MMOL/L November 08, 2016 9:29pm CHLORIDE(101-111 MMOL/L) 105 MMOL/L November 08, 2016 9:29pm CO2(21-31 MMOL/L) 24 MMOL/L November 08, 2016 9:29pm ANION GAP(8-18) 13 November 08, 2016 9:29pm OSMO CALCULATED(270.0-290.0) 280.8 November 08, 2016 9:29pm CALCIUM(8.5-10.5 MG/DL) 8.8 MG/DL November 08, 2016 9:29pm BILIRUBIN,TOTAL(0.1-1.2 MG/DL) 0.4 MG/DL November 08, 2016 9:29pm ALKALINE PHOSPHATASE(42-121 IU/L) 72 IU/L November 08, 2016 9:29pm ASPARTATE AMINO TRANSFERASE(10-42 IU/L) 27 IU/L November 08, 2016 9:29pm ALANINE AMINOTRANSFERASE(10-60 IU/L) 20 IU/L November 08, 2016 9:29pm TOTAL PROTEIN(6.4-8.2 G/DL) 6.8 G/DL November 08, 2016 9:29pm ALBUMIN(3.5-5.5 G/DL) 3.6 G/DL November 08, 2016 9:29pm GLOBULIN(2.4-3.6) 3.2 November 08, 2016 9:29pm ALBUMIN/GLOBULIN RATIO(0.9-1.8 RATIO) 1.1 RATIO November 08, 2016 9:29pm CARDIAC TROPONIN I CARDIAC TROPONIN I(0.01-0.04 NG/ML) 0.01 NG/ML Result Comments: REFERENCE RANGES: NEGATIVE < 0.04 NG/ML POSSIBLE MYCARDIAL INVOLVEMENT >/=0.04 NG/ML INTERPRET TROPONIN I RESULT IN LIGHT OF THE TOTAL CLINICAL PRESENTATION INCLUDING CLINICAL HISTORY. ANY CONDITION RESULTING IN MYOCARDIAL INJURY CAN POTENTIALLY ELEVATE TROPONIN I LEVELS ABOVE EXPECTED NORMAL RANGES. NOTE NEW REFERENCE RANGE November 08, 2016 9:29pm 0.01 NG/ML Result Comments: REFERENCE RANGES: NEGATIVE < 0.04 NG/ML POSSIBLE MYCARDIAL INVOLVEMENT >/=0.04 NG/ML INTERPRET TROPONIN I RESULT IN LIGHT OF THE TOTAL CLINICAL PRESENTATION INCLUDING CLINICAL HISTORY. ANY CONDITION RESULTING IN MYOCARDIAL INJURY CAN POTENTIALLY ELEVATE TROPONIN I LEVELS ABOVE EXPECTED NORMAL RANGES. NOTE NEW REFERENCE RANGE November 08, 2016 11:01pm ACETAMINOPHEN ACETAMINOPHEN(10-30 UG/ML) Less than 10.0 UG/ML November 08, 2016 9:29pm SALICYLATE SALICYLATE(4-29 MG/DL) Less than 4 MG/DL November 08, 2016 9:29pm ALCOHOL ALCOHOL(0.0-5.0 MG/DL) Less than 5.0 MG/DL November 08, 2016 9:29pm DRUGS OF ABUSE, URINE OPIATE SCREEN,URINE(NEGATIVE) NEGATIVE November 09, 2016 1:15am BARBITURATES SCREEN, URINE(NEGATIVE) NEGATIVE November 09, 2016 1:15am AMPHETAMINE SCREEN,URINE(NEGATIVE) NEGATIVE November 09, 2016 1:15am BENZODIAZEPINES SCREEN,URINE(NEGATIVE) NEGATIVE November 09, 2016 1:15am COCAINE SCREEN, URINE(NEGATIVE) NEGATIVE November 09, 2016 1:15am CANNABINOID SCREEN,URINE(NEGATIVE) NEGATIVE November 09, 2016 1:15am Microbiology Results Visit/Account #[id number] (November 08, 2016 8:41pm - November 09, 2016 4:56am) Procedure Result URINE CULTURE URINE CULTURE Result Instance On November 09, 2016 1:15am Source: URINE Organism: MIXED UROGENITAL ORGANISMS COLONY COUNT 80,000 - 90,000 Allergies and Adverse Reactions Allergies and Adverse Reactions Patient Unit Number: [id number] Agent Type Reaction Severity Status METOCLOPRAMIDE HCL Drug Allergy Unknown Moderate Active KETOROLAC TROMETHAMINE Drug Allergy Unknown Unknown Active NSAIDS (NON-STEROIDAL ANTI-INFLAMMA Drug Adverse Reaction Unknown Moderate Active PROCHLORPERAZINE Drug Allergy Unknown Mild Active MORPHINE Drug Allergy HIVES Severe Active Problem List Problem List Visit/Account #[id number] (November 08, 2016 8:41pm - November 09, 2016 4:56am) Acute Problems: Code/Condition Comments Documented Start Date Documented Resolved Date Code (s) Chronic narcotic dependence ICD10: F11.20 Chronic narcotic dependence SNOMED: 49603499 Chronic narcotic dependence Suicidal thoughts ICD10: R45.851 Suicidal thoughts SNOMED: 3856433 Suicidal ideation Patient Unit Number: [id number] Chronic Problems: Code/Condition Comments Documented Start Date Documented Resolved Date Code (s) Alcohol intoxication July 21, 2013 ICD9: 305.00 Alcohol intoxication SNOMED: 68199741 Alcoholic intoxication Plan of Care Plan Of Care Visit/Account #[id number] (November 08, 2016 8:41pm - November 09, 2016 4:56am) Patient Instructions Instructions [facility] Drug/Alcohol Use Resources for Recovery from Drug/Alcohol Use [facility] [address] [place] [address] Website: [email or web address] Email: [email or web address] [facility] offers Detoxification services, Residential services, Outpatient services, and Assessments. We can be reached at the phone number listed 30/10. [facility] [address] [place] [address] Website: [email or web address] Email: [email or web address] Open 7a-9p Sunday-Sunday Open 1p-9p Sunday Closed Sunday [facility] is a drop-in center that offers support and events in a sober environment during the days/times listed. Alcoholics Anonymous (AA) Meetings in [place] [facility] [address] [place] [address] Website: www.[employer] [place] and [place]round[place] Area (For those who have been affected by someone else's drinking) , Website: www.mljnph-kn-llnf.org Email: Narcotics Anonymous (NA) Meetings in [facility] [address] [place] [address] Website: [email or web address].[email or web address] Email: [email or web address].[email or web address] Vital Signs Vital Signs Visit/Account #[id number] (November 08, 2016 8:41pm - November 09, 2016 4:56am) Sign First Result Last Result Code(s) Temperature in Fahrenheit Temperature (Fahrenheit): 97.6 [degF] On November 08, 2016 8:38pm Temperature (Fahrenheit): 98.1 [degF] On November 09, 2016 4:50am 8310-5 Body Temperature Weight in Kilograms Weight (Kilograms): 74.9000 kg On November 08, 2016 8:38pm 3141-9 Weight Measured Functional Status Functional and Cognitive Status No Functional Status Data Medications Inpatient/Ordered Medications - Medications administered during hospital visit Visit/Account #[id number] (November 08, 2016 8:41pm - November 09, 2016 4:56am) Medication Route Sig/Schedule Precondition/Indication Comments/Instructions Codes NORFLEX INJ(ORPHENADRINE CITRATE) 60 MG/2 ML INJECTION Dose: 2 ML INTRAVEN ONE TIME ORDER 2 ML Orphenadrine Citrate 30 MG/ML Injection (RxNorm): 185965 NORFLEX INJ (ORPHENADRINE CITRATE) NDC: 91899846744 MONUROL(FOSFOMYCIN TROMETHAMINE) 3 GM PACKET Dose: 3 GM ORAL ONE TIME ORDER Special Dose Instructions: MIX IN 3-4 OZ OF WATER Fosfomycin 3000 MG Powder for Oral Solution [Monurol] (RxNorm): 700105 MONUROL (FOSFOMYCIN TROMETHAMINE) NDC: 37975349687 FLEXERIL(CYCLOBENZAPRINE HCL) 10 MG TAB Dose: 10 MG ORAL NOW Label Comments: MAY INCREASE FALL RISK Cyclobenzaprine hydrochloride 10 MG Oral Tablet (RxNorm): 688795 FLEXERIL (CYCLOBENZAPRINE HCL) NDC: 76650745132 History Of Encounters Encounters Visit/Account #[id number] (November 08, 2016 8:41pm - November 09, 2016 4:56am) Account Status Physican Of Record Reason For Visit Visit Diagnosis Start Date/Time Stop Date/Time ER DAVE SHORESHER, DO Suicidal/Chest pain Not Available Nov 08, 2016 8:41pm Nov 09, 2016 4:56am Racheal JARVIS, DO Suicidal/Chest pain Not Available Nov 08, 2016 8:46pm Nov 09, 2016 4:56am History of Procedures Procedure List No procedures recorded. Discharge Instructions Discharge Instructions Visit/Account #[id number] (November 08, 2016 8:41pm - November 09, 2016 4:56am) DISCHARGE INSTRUCTIONS Physician Documentation Social History Social History No Social History Data. Immunizations Immunizations Patient Unit Number: [id number] Immunizations No immunizations recorded.
--- OUTSIDE RECORDS SUMMARY | 2018-02-04 14:41 | XMS REPORT | Continuity of Care Document ---
Author Author [facility] Address Unknown Phone Unavailable Care Team Providers Care Inspector Final Assembly Electrical Name Role Phone Shady Burrell PCP Insurance Providers Payer Name Policy Number Subscriber Name Relationship Medicare A And B [id number] Caroline Larsen 18 Self / Same As Patient [facility] [employer] [id number] Caroline Larsen 18 Self / Same As Patient Advance Directives Directive Response Recorded Date/Time Advanced Directives No 05/19/15 8:29pm Chief Complaint and Reason for Visit Chief Complaint Injury Reason for Visit Contusion of right hip History of fall Problems Active Problems Medical Problem Onset [...] Times Daily as needed for Severe Pain 15 05/19/15 Past Home Medications Medication Directions Ordered Status [...] discharge instructions. Plan of Care Discharge Date 05/19/15 10:25pm Disposition 01 HOME OR SELF-CARE Condition at Discharge Stable Instructions/Education Provided Contusion (ED) Prescriptions See Medication Section Referrals Shady Burrell S - Additional Instructions/Education Percocet 5's as Dispensed / Rx'd, as needed for severe pain. Ambulate with a walker and, as needed, assistance. Follow up with PCP within 7 days. Some of your test results may not [...] worrisome symptoms. * Emergency Department phone number: [phone], x [phone]* MEDICAL RECORD If you need copies of your X-rays, call [phone] x [phone]. If you need copies of [...] SERVICE BILLING CONSTITUTION PARTY Emergency Room Services [facility] Physician Services [facility] X-rays [facility] Patients will receive bills for services from the appropriate provider. If you have any questions about your [facility] bill, our staff will be happy to assist you. Please call [phone], and ask for the billing department. THANK YOU for choosing [facility] as your emergency care provider! Care Plan and Goals ~~Discharge Care Plan~~ Problem: Sprain, strain or fracture of extremity Goal: Extremity will be pink and warm to touch, with good movement of fingers or toes. Instructions: Apply ice bag and elevate extremity above the level of your heart. Monitor extremity for pink color to fingers or toes and movement. Call your physician if extremity becomes blue in color or cool to touch. Some swelling of fingers or toes is expected, continue to wiggle fingers and toes and keep elevated. Allow 24-48 hours for the splint to dry completely. Do not place splint on a hard surface to avoid a pressure area. Take medication(s) as directed. Follow up with Orthopedic or primary care physician as directed. Functional Status No functional status [...] Vital Signs Vital Response Date/Time Temperature (Fahrenheit) 97.2 05/19/2015 10:24pm Pulse 59 bpm 05/19/2015 10:24pm Respirations 18 05/19/2015 10:24pm Height 6 ft 1 in Weight 144 lb Body Mass Index 19.0 kg/m^2 Results No known relevant diagnostic tests, laboratory data and/or discharge summary. Procedures Procedure Status Date Provider(s) MRI BRAIN STEM W/O DYE Completed 04/30/15 X-RAY EXAM OF PELVIS Completed 04/26/15 X-RAY EXAM HIP UNI 2-3 VIEWS Completed 04/26/15 THER/PROPH/DIAG INJ SC/IM Completed 04/26/15 EMERGENCY DEPT VISIT Completed 04/26/15 Completed 04/26/15 Encounters Encounter Location Arrival/Admit Date Discharge/Depart Date Attending Provider Departed Emergency Room [facility] 05/19/15 8:26pm 05/19/15 10:25pm AWAIS OLMOS MD Registered Clinic [facility] 04/30/15 12:02LIZBETH Caraballo MD Departed Emergency Room [facility] 04/26/15 12:21pm 04/26/15 1:25pm FIONA RETANA MD Recent Diagnosis
--- OUTSIDE RECORDS SUMMARY | 2018-02-04 14:41 | XMS REPORT | Continuity of Care Document ---
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 Plan of Care Discharge Date 07/01/15 1:03pm Disposition 01 HOME OR SELF-CARE Condition at Discharge Stable Prescriptions See Medication Section Referrals ESTHELA CARLSON - Additional Instructions/Education Keep already scheduled appointments for pain managment Take medications as previously prescribed REturn if symptoms worsen Some of your test results may not [...] worrisome symptoms. * Emergency Department phone number: [phone], x [phone]* MEDICAL RECORD If you need copies of your X-rays, call [phone]. If you need copies of [...] services. 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 If you have any questions about your [facility] bill, our staff will be happy to assist you. Please call [phone], and ask for the billing department. THANK YOU for choosing [facility] as your emergency care provider! Care Plan and Goals ~~Discharge Care Plan~~ Problem:pain left side Goal:decreased pain Instructions:meds as directed, follow up with pain specialist Functional Status No functional status results. Allergies, [...] Vital Signs Vital Response Date/Time Temperature (Fahrenheit) 96.1 07/01/2015 12:42pm Pulse 63 bpm 07/01/2015 12:42pm Respirations 18 07/01/2015 12:42pm Height 6 ft 1 in Weight 165 lb Body Mass Index 21.0 kg/m^2 Results Laboratory Results Test Name Result Units Flags Reference Collection Date/Time Result Date/ Time Comments White Blood Count 9.16 10^3uL 4.0-11.0 06/16/2015 1:55pm 06/16/2015 2: 08pm Red Blood Count 5.36 10^6uL 4.50-5.50 06/16/2015 1:55pm 06/16/2015 2: 08pm Hemoglobin 17.5 g/dL H 13.5-17.0 06/16/2015 1:55pm 06/16/2015 2:08pm Hematocrit 48.80 % 39.00-50.00 06/16/2015 1:55pm 06/16/2015 2:08pm Mean Corpuscular Volume 91 FL 80-100 06/16/2015 1:55pm 06/16/2015 2: 08pm Mean Corpuscular Hemoglobin 32.6 PG 26.0-34.0 06/16/2015 1:55pm 2015 2:08pm Mean Corpuscular Hemoglobin Concent 35.9 g/dL 31.0-37.0 06/16/2015 1: 55pm 06/16/2015 2:08pm Red Cell Distribution Width 13.4 % 11.8-15.6 06/16/2015 1:55pm 2015 2:08pm Platelet Count 237 10^3uL 150-450 06/16/2015 1:55pm 06/16/2015 2:08pm Mean Platelet Volume 9.2 FL 6.0-9.5 06/16/2015 1:55pm 06/16/2015 2: 08pm Neutrophils (%) (Auto) 76 % H 51-67 06/16/2015 1:55pm 06/16/2015 2:08pm Lymphocytes (%) (Auto) 16 % L 20-46 06/16/2015 1:55pm 06/16/2015 2:08pm Monocytes (%) (Auto) 7 % 3-11 06/16/2015 1:55pm 06/16/2015 2:08pm Eosinophils (%) (Auto) 0 % 0-4 06/16/2015 1:55pm 06/16/2015 2:08pm Basophils (%) (Auto) 0 % 0-2 06/16/2015 1:55pm 06/16/2015 2:08pm Neutrophils # (Auto) 7.0 X10^3 06/16/2015 1:55pm 06/16/2015 2:08pm Lymphocytes # (Auto) 1.4 X10^3 06/16/2015 1:55pm 06/16/2015 2:08pm Monocytes # (Auto) 0.7 X10^3 06/16/2015 1:55pm 06/16/2015 2:08pm Eosinophils # (Auto) 0.0 10^3uL 06/16/2015 1:55pm 06/16/2015 2:08pm Basophils # (Auto) 0.0 10^3uL 06/16/2015 1:55pm 06/16/2015 2:08pm Prothrombin Time 12.4 SEC 12.0-14.5 06/16/2015 1:55pm 06/16/2015 2: 20pm Prothromb Time International Ratio 0.9 0.8-1.4 06/16/2015 1:55pm 12/2015 2:20pm Activated Partial Thromboplast Time 26.6 SEC 24.9-35.9 06/16/2015 1: 55pm 06/16/2015 2:20pm D-Dimer 0.43 ug/mL *H 0.00-0.41 06/16/2015 1:55pm 06/16/2015 2:20pm Results called to DANY [facility] who read back the results. Called by [address] at 1416 Sodium Level 141 mmol/L 135-150 06/16/2015 1:55pm 06/16/2015 2:20pm Potassium Level 3.8 mmol/L 3.5-5.1 06/16/2015 1:55pm 06/16/2015 2:20pm Chloride Level 105 mmol/L 98-108 06/16/2015 1:55pm 06/16/2015 2:20pm Carbon Dioxide Level 26 mmol/L 22-29 06/16/2015 1:55pm 06/16/2015 2: 20pm Anion Gap 13.7 MEQ/L 3-15 06/16/2015 1:55pm 06/16/2015 2:20pm Blood Urea Nitrogen 20 mg/dL H 7-18 06/16/2015 1:55pm 06/16/2015 2:20pm Creatinine 0.94 mg/dL 0.8-1.5 06/16/2015 1:55pm 06/16/2015 2:20pm BUN/Creatinine Ratio 21 H 10-20 06/16/2015 1:55pm 06/16/2015 2:20pm Estimat Glomerular Filtration Rate 96.3 06/16/2015 1:55pm 2015 2:20pm Estimated GFR (Non- 79.6 06/16/2015 1:55pm 2015 2:20pm Glucose Level 153 mg/dL H 70-110 06/16/2015 1:55pm 06/16/2015 2:20pm Calculated Osmolality 279 mosm/L L 280-300 06/16/2015 1:55pm 06/16/2015 2:20pm Calcium Level 9.5 mg/dL 8.8-10.8 06/16/2015 1:55pm 06/16/2015 2:20pm Calcium/Ionized Calcium Ratio 4.2 mg/dL 3.8-4.6 06/16/2015 1:55pm 06/15 2:20pm Total Bilirubin 0.6 mg/dL 0.1-1.0 06/16/2015 1:55pm 06/16/2015 2:20pm Alkaline Phosphatase 67 U/L 38-126 06/16/2015 1:55pm 06/16/2015 2:20pm Aspartate Amino Transf (AST/SGOT) 24 U/L 15-37 06/16/2015 1:55pm 2015 2:20pm Alanine Aminotransferase (ALT/SGPT) 18 U/L L 30-65 06/16/2015 1:55pm 12/2015 2:20pm Total Creatine Kinase 36 U/L L 55-170 06/16/2015 1:55pm 06/16/2015 2: 20pm Creatine Kinase MB 0.9 ng/mL 0.0-6.0 06/16/2015 1:55pm 06/16/2015 2: 26pm Troponin I < 0.012 ng/mL 0.010-0.080 06/16/2015 1:55pm 06/16/2015 2: 26pm VM-Vsi-X-Type Natriuretic Peptide 125 pg/mL 0-125 06/16/2015 1:55pm 12/2015 2:26pm <300 ng/mL - HF unlikely Age <50 years, NT-proBNP >450 pg/mL - HF Likely Age 50-75 yrs, NT-proBNP >900 pg/mL - HF Likely Age >75 yrs, NT-proBNP >1800 - HF likely Total Protein 7.2 g/dL 6.4-8.5 06/16/2015 1:55pm 06/16/2015 2:20pm Albumin 4.3 g/dL 3.4-5.0 06/16/2015 1:55pm 06/16/2015 2:20pm Albumin/Globulin Ratio 1.482 1.1-1.8 06/16/2015 1:55pm 06/16/2015 2: 20pm Procedures Procedure Status Date Provider(s) ROUTINE VENIPUNCTURE Completed 06/16/15 CHEST X-RAY 1 VIEW FRONTAL Completed 06/16/15 COMPREHEN METABOLIC PANEL Completed 06/16/15 ASSAY OF CK (CPK) Completed 06/16/15 CREATINE MB FRACTION Completed 06/16/15 ASSAY OF NATRIURETIC PEPTIDE Completed 06/16/15 ASSAY OF TROPONIN QUANT Completed 06/16/15 COMPLETE CBC W/AUTO DIFF WBC Completed 06/16/15 FIBRIN DEGRADATION QUANT Completed 06/16/15 PROTHROMBIN TIME Completed 06/16/15 THROMBOPLASTIN TIME PARTIAL Completed 06/16/15 ELECTROCARDIOGRAM TRACING Completed 06/16/15 HYDRATE IV INFUSION ADD-ON Completed 06/16/15 THER/PROPH/DIAG INJ IV PUSH Completed 06/16/15 EMERGENCY DEPT VISIT Completed 06/16/15 Completed 06/16/15 Completed 06/16/15 Completed 06/16/15 Encounters Encounter Location Arrival/Admit Date Discharge/Depart Date Attending Provider Departed Emergency Room [facility] 07/01/15 11:53am 07/01/15 1:03pm ADORE NUNEZ MD Departed Emergency Room [facility] 06/16/15 1:51pm 06/16/15 3:09pm KEYA JENKINS DO Recent Diagnosis
--- OUTSIDE RECORDS SUMMARY | 2018-02-04 14:42 | XMS REPORT | Continuity Of Care Document ---
Author Author [facility] Organization [facility] Address [address] [place] [address] Phone Care Team Providers Care [employer] Name Role Phone MODESTO ROMERO, SAMMY CP ELOY ROMERO, BLADIMIR Tenorio AD TRENT SOLITARIO MD, MITZI Queen AT MESSI ROMERO, RICHARD Castro PP JAYY ROMERO, MOSES Sullivan Unavailable Results Lab Results Visit/Account #[id number] (May 26, 2016 9:05pm - May 31, 2016 1: 23pm) Test Result Date/Time 07631-3: COMPLETE BLOOD COUNT WITH DIFF WHITE BLOOD COUNT(4.0-11.0 10E3/UL) 8.6 10E3/UL May 27, 2016 7:50am RED BLOOD COUNT(4.50-5.90 10E6/UL) 4.54 10E6/UL May 27, 2016 7:50am HEMOGLOBIN(13.5-17.5 G/DL) 15.5 G/DL May 27, 2016 7:50am HEMATOCRIT(41.0-53.0 %) 43.5 % May 27, 2016 7:50am MEAN CORPUSCULAR VOLUME(82.0-100.0 FL) 95.8 FL May 27, 2016 7:50am 64703-8: MEAN CORPUSCULAR HEMOGLOBIN(26.0-34.0 PG) 34.1 PG May 27, 2016 7:50am MEAN CORPUSCULAR HGB CONC(31.5-36.5 G/DL) 35.6 G/DL May 27, 2016 7:50am RED CELL DISTRIBUTION WIDTH(11.5-14.5 %) 14.1 % May 27, 2016 7:50am 777-3: PLATELET COUNT(150-450 10E3/UL) 146 10E3/UL May 27, 2016 7:50am MEAN PLATELET VOLUME(8.2-12.4 FL) 10.0 FL May 27, 2016 7:50am 770-8: NEUTROPHILS % (AUTO)(40-70 %) 74 % May 27, 2016 7:50am LYMPHOCYTES % (AUTO)(15-45 %) 17 % May 27, 2016 7:50am 5905-5: MONOCYTES % (AUTO)(2-10 %) 7 % May 27, 2016 7:50am 713-8: EOSINOPHILS % (AUTO)(0-6 %) 1 % May 27, 2016 7:50am 706-2: BASOPHILS % (AUTO)(0-1 %) 0 % May 27, 2016 7:50am 29285-5: IMMATURE GRANS % (AUTO)(0-0 %) 0 % May 27, 2016 7:50am NUCLEATED RBCS (AUTO)(0-0 %) 0 % May 27, 2016 7:50am 751-8: NEUTROPHILS # (AUTO)(2.5-7.5 10E3/UL) 6.3 10E3/UL May 27, 2016 7:50am 03287-2: LYMPHOCYTES # (AUTO)(1.0-4.0 10E3/UL) 1.4 10E3/UL May 27, 2016 7:50am 742-7: MONOCYTES # (AUTO)(0.2-0.8 10E3/UL) 0.6 10E3/UL May 27, 2016 7:50am 711-2: EOSINOPHILS # (AUTO)(0.0-0.4 10E3/UL) 0.1 10E3/UL May 27, 2016 7:50am 704-7: BASOPHILS # (AUTO)(0.0-0.2 10E3/UL) 0.0 10E3/UL May 27, 2016 7:50am IMMATURE GRANS # (AUTO)(0.0-0.0 10E3/UL) 0.0 10E3/UL May 27, 2016 7:50am DIFF TYPE AUTOMATED May 27, 2016 7:50am COMPLETE BLOOD COUNT WHITE BLOOD COUNT(4.0-11.0 10E3/UL) 6.1 10E3/UL May 30, 2016 5:22pm RED BLOOD COUNT(4.50-5.90 10E6/UL) 4.38 10E6/UL May 30, 2016 5:22pm HEMOGLOBIN(13.5-17.5 G/DL) 14.5 G/DL May 30, 2016 5:22pm HEMATOCRIT(41.0-53.0 %) 42.4 % May 30, 2016 5:22pm MEAN CORPUSCULAR VOLUME(82.0-100.0 FL) 96.8 FL May 30, 2016 5:22pm 29421-2: MEAN CORPUSCULAR HEMOGLOBIN(26.0-34.0 PG) 33.1 PG May 30, 2016 5:22pm MEAN CORPUSCULAR HGB CONC(31.5-36.5 G/DL) 34.2 G/DL May 30, 2016 5:22pm RED CELL DISTRIBUTION WIDTH(11.5-14.5 %) 13.8 % May 30, 2016 5:22pm 777-3: PLATELET COUNT(150-450 10E3/UL) 143 10E3/UL May 30, 2016 5:22pm MEAN PLATELET VOLUME(8.2-12.4 FL) 9.3 FL May 30, 2016 5:22pm NUCLEATED RBCS (AUTO)(0-0 %) 0 % May 30, 2016 5:22pm UA WITH SCREEN FOR CULTURE 5778-6: COLOR,URINE DARK YELLOW May 30, 2016 7:50pm 11693-9: CLARITY,URINE CLEAR May 30, 2016 7:50pm GLUCOSE, URINE(NEGATIVE MG/DL) NEGATIVE MG/DL May 30, 2016 7:50pm URINE BILIRUBIN(NEGATIVE) NEGATIVE May 30, 2016 7:50pm KETONES,URINE(NEGATIVE MG/DL) NEGATIVE MG/DL May 30, 2016 7:50pm URINE SPECIFIC GRAVITY(1.001-1.035) 1.025 May 30, 2016 7:50pm 77005-8: URINE BLOOD(NEGATIVE) NEGATIVE May 30, 2016 7:50pm 2756-5: URINE PH(5.0-9.0) 5.5 May 30, 2016 7:50pm URINE PROTEIN(Less than 20 MG/DL) TRACE MG/DL May 30, 2016 7:50pm 05169-0: URINE UROBILINOGEN(0.2-1.0 MG/DL) 0.2-1.0 MG/DL May 30, 2016 7:50pm URINE NITRITE(NEGATIVE) NEGATIVE May 30, 2016 7:50pm 5799-2: LEUKOCYTE ESTERASE ,URINE(NEGATIVE) NEGATIVE May 30, 2016 7:50pm URINE RBCS(0-3 /HPF) 0-3 /HPF May 30, 2016 7:50pm URINE WBCS(0-3 /HPF) 4-7 /HPF May 30, 2016 7:50pm URINE EPITHELIAL CELLS(0-3 /HPF) 0-3 /HPF May 30, 2016 7:50pm URINE HYALINE CASTS(0-3 /LPF) 4-7 /LPF May 30, 2016 7:50pm URINE BACTERIA(NEGATIVE /HPF) NEGATIVE /HPF May 30, 2016 7:50pm 630-4: URINE CULTURE NOT INDICATED May 30, 2016 7:50pm URINE MICROSCOPIC REQUIRED YES May 30, 2016 7:50pm 34693-5: COMPLETE METABOLIC PROFILE GLUCOSE(70-110 MG/DL) 92 MG/DL May 27, 2016 7:50am 116 MG/DL May 30, 2016 5:22pm BLOOD UREA NITROGEN(6-20 MG/DL) 16 MG/DL May 27, 2016 7:50am 22 MG/DL May 30, 2016 5:22pm CREATININE(0.50-1.20 MG/DL) 0.74 MG/DL May 27, 2016 7:50am 0.93 MG/DL May 30, 2016 5:22pm 88757-4: EST GLOMERULAR FILTRATION RATE(Greater than or equal to 60) Greater than or equal to 60 Result Comments: If the patient is of -[place]oc[place] descent/extraction multiply the eGFR value by 1.212 to obtain the actual eGFR. >=60 mg/dL Normal 30-59 mg/dL Moderate Kidney Disease 15-29 mg/dL Severe Kidney Disease <15 mg/dL Kidney Failure May 27, 2016 7:50am Greater than or equal to 60 Result Comments: If the patient is of -[place]oc[place] descent/extraction multiply the eGFR value by 1.212 to obtain the actual eGFR. >=60 mg/dL Normal 30-59 mg/dL Moderate Kidney Disease 15-29 mg/dL Severe Kidney Disease <15 mg/dL Kidney Failure May 30, 2016 5:22pm BUN CREATININE RATIO(10.0-20.0 RATIO) 22.0 RATIO May 27, 2016 7:50am 24.0 RATIO May 30, 2016 5:22pm SODIUM(135-145 MMOL/L) 139 MMOL/L May 27, 2016 7:50am 133 MMOL/L May 30, 2016 5:22pm POTASSIUM(3.6-5.0 MMOL/L) 4.2 MMOL/L May 27, 2016 7:50am 4.1 MMOL/L May 30, 2016 5:22pm CHLORIDE(101-111 MMOL/L) 109 MMOL/L May 27, 2016 7:50am 106 MMOL/L May 30, 2016 5:22pm CO2(21-31 MMOL/L) 22 MMOL/L May 27, 2016 7:50am 23 MMOL/L May 30, 2016 5:22pm ANION GAP(8-18) 12 May 27, 2016 7:50am 8 May 30, 2016 5:22pm OSMO CALCULATED(270.0-290.0) 278.4 May 27, 2016 7:50am 270.7 May 30, 2016 5:22pm CALCIUM(8.5-10.5 MG/DL) 8.3 MG/DL May 27, 2016 7:50am 8.3 MG/DL May 30, 2016 5:22pm BILIRUBIN,TOTAL(0.1-1.2 MG/DL) 0.8 MG/DL May 27, 2016 7:50am 0.4 MG/DL May 30, 2016 5:22pm ALKALINE PHOSPHATASE(42-121 IU/L) 46 IU/L May 27, 2016 7:50am 48 IU/L May 30, 2016 5:22pm ASPARTATE AMINO TRANSFERASE(10-42 IU/L) 21 IU/L May 27, 2016 7:50am 25 IU/L May 30, 2016 5:22pm ALANINE AMINOTRANSFERASE(10-60 IU/L) 18 IU/L May 27, 2016 7:50am 19 IU/L May 30, 2016 5:22pm TOTAL PROTEIN(6.4-8.2 G/DL) 5.8 G/DL May 27, 2016 7:50am 5.9 G/DL May 30, 2016 5:22pm ALBUMIN(3.5-5.5 G/DL) 3.5 G/DL May 27, 2016 7:50am 3.3 G/DL May 30, 2016 5:22pm GLOBULIN(2.4-3.6) 2.3 May 27, 2016 7:50am 2.6 May 30, 2016 5:22pm ALBUMIN/GLOBULIN RATIO(0.9-1.8 RATIO) 1.5 RATIO May 27, 2016 7:50am 1.3 RATIO May 30, 2016 5:22pm 83321-1: MAGNESIUM 61611-2: MAGNESIUM(1.8-2.5 MG/DL) 1.9 MG/DL May 27, 2016 7:50am Microbiology Results Visit/Account #[id number] (May 26, 2016 9:05pm - May 31, 2016 1: 23pm) Procedure Result 79849-8: MRSA SCREEN FOR INFEC CONTROL 42887-4: MRSA SCREEN FOR INFEC CONTROL Result Instance On May 26, 2016 9:45pm Source: NARE Special Result Comments: No growth Allergies and Adverse Reactions Allergies and Adverse Reactions Patient Unit Number: [id number] Agent Type Reaction Severity Status METOCLOPRAMIDE HCL Drug Allergy Unknown Moderate Active KETOROLAC TROMETHAMINE Drug Allergy Unknown Unknown Active NSAIDS (NON-STEROIDAL ANTI-INFLAMMA Drug Adverse Reaction Unknown Moderate Active PROCHLORPERAZINE Drug Allergy Unknown Mild Active MORPHINE Drug Allergy HIVES Severe Active Problem List Problem List Visit/Account #[id number] (May 26, 2016 9:05pm - May 31, 2016 1: 23pm) Acute Problems: Code/Condition Comments Documented Start Date Documented Resolved Date Code (s) Depression ICD10: F32.9 Depression ICD9: 311 Depression SNOMED: 78532146 Depression Suicidal ideations ICD10: R45.851 Suicidal ideation ICD9: V62.84 Suicidal ideation SNOMED: 3053171 Suicidal ideation Major depressive disorder, 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, without psychotic features ICD9: 296.33 Severe episode of recurrent major depressive disorder, without psychotic features SNOMED: 48875881 Severe episode of recurrent major depressive disorder, without psychotic features Chronic Problems: Alcohol intoxication July 21, 2013 ICD10: F10.129 Alcoholic intoxication ICD9: 305.00 Alcoholic intoxication SNOMED: 88039060 Alcoholic intoxication Plan of Care Plan Of Care Visit/Account #[id number] (May 26, 2016 9:05pm - May 31, 2016 1: 23pm) Patient Instructions Instructions Mental Health Information/Referral Packet During your visit to the Emergency Department at [facility], staff identified you as someone who might appreciate additional information on mental health resources. Mental illnesses are medical conditions that disrupt a person's thinking, feeling, mood, ability to relate to others and daily functioning. Just as diabetes is a disorder of the pancreas, mental illnesses are medical conditions that often result in a diminished capacity for coping with the ordinary demands of life. Mental illnesses can affect persons of any age, race, baptism, or income. Mental illnesses are not the result of personal weakness, lack of character or poor upbringing. Mental illnesses are treatable. Most people diagnosed with a serious mental illness can experience relief from their symptoms. When we are experiencing problems that "won't go away" - that seem hopeless or unsolvable, talking it out with a trained professional counselor can often give us the direction we need in solving the problems. In addition to meeting with a professional counselor, implementing healthy coping strategies into your daily routine may be helpful. EXAMPLES OF HEALTHY COPING STRATEGIES: <ul><li>Stay connected with other people. Try not to isolate yourself from those who care about you. Even though you may not feel sociable or think that you are not good company, talk with someone everyday.</li><li>Eat a regularly spaced and well-balanced diet.</li><li>Get plenty of rest.</li><li>Avoid alcohol and drugs usage.</li><li>Stick to daily routines.</li><li>Set some realistic goals and achieve them. Make a list and cross things off as you go. Accomplishments give a sense of worth.</li><li>If you are able, try to START EXCERCISING. Even half-hour periods of exercise each day will make you feel better.</li><li>Experience pleasure daily. This may include playing your favorite music, reading a good book, painting a picture or playing your favorite instrument.</li><li>Keep your living space well lit with windows open, and let the sun shine in.</li><li>Keep physician appointments.</li><li>Take medication as prescribed.</li></ul> Potential MENTAL HEALTH WARNING SIGNS that you might want to watch for include: <ul><li>Not sleeping</li><li>Irritability</li><li>Inability to experience pleasure</li><li>Anxiety and crying</li><li>Talking about suicide, , or harming oneself</li><li>Inability to cope with daily activities such as bathing & other self care needs</li><li>Not getting out of bed</li><li>Not keeping mental health or medical appointments</li></ul> SUICIDE PREVENTION HOTLINES: <ul><li>7-325-[id number] ( )</li><li>4-166-302-TALK( )</li><li>National [place] of Mental Health www.[email or web address].nih.gov</li></ul> IF YOU EXPERIENCE THESE SIGNS, IT IS IMPORTANT TO CONTACT YOUR LOCAL MENTAL HEALTH PROVIDEROR SEEK SERVICES THROUGH YOUR LOCAL HOSPITAL. MENTAL HEALTH RESOURCES If you're already connected to a mental health provider, we encourage you to continue with these services. For those of you without an identified resource, we've included a list of community mental health centers throughout the [facility] and additional providers in the [facility]. Within the [facility], the following resources are available: <ul><li>[facility]:[address] </li><li>[facility]: [address] </li><li>[facility]: [address] </li><li>[facility]: [address] </li><li>[facility]: [address] </li><li>[facility], [facility] [address] [facility] [address] </li></ul> Other community Mental Health Centers and the counties they serve: <ul><li>[facility] [place] : Frankie Garcia, Sang, Dirk, Juan, Latoya, Derik, Jose, Eben, Herrera, Arya Ramachandran and Josué</li><li>[facility] : Devonte</li><li>[facility] : Larry Ross, Jonathan, Nigel and Saline</li><li>[facility] of [facility] : Rhodes</li><li>[facility] : [place]</li><li>[facility] or : Salix</li><li>[facility] : Billy</li><li>[facility] : [place]</li><li>[facility] [place] : Justin Scott Wilson and Cuong</li><li>[facility] : Krystian Charles [place], Edvin, Josue Ronquillo,Osiris, Tara, Sadiq, Marina, Moody, Fernando, Shiraz, Roderick, Michael, Huong, Jono, Kenrick Hernandez and Sara</li><li>[facility] : Courtney Salamanca [place], Barber and Mimi</li><li>[facility] : Selvin Tracey [place] and Fransisco</li><li>[facility] : Robbins</li><li>[facility] : Jorge Pereira [place] and Gui</li><li>[place] [facility] : [place]</li><li>[facility] : John Garcia [place], Morris, Chase, [place] and Evan</li><li>[facility] : Jesus Bo, Luis Miguel, Hansel, Fredi, Deangelo, Titus, Manish, Carlos and Agustín</li><li>[facility] : Emmett, Josef and Katharine</li><li>[facility] : Marya</li><li>[facility] : Cecilia Pastrana Woodson, Allen, Alethea and Patricia.</li><li>[facility] : [place]</li><li>[facility] : Sage Landry Stafford and Radha</li><li>[facility] : Damián Baumann and Amy</li><li>[facility] : Yolanda</li><li>[facility] : [place] Nicotine Nasal [place] Diclofenac Gabapentin Vital Signs Vital Signs Visit/Account #[id number] (May 26, 2016 9:05pm - May 31, 2016 1: 23pm) Sign First Result Last Result Code(s) Blood Pressure 133/ 62 mm[Hg] On May 26, 2016 10:24pm 172/ 84 mm[Hg] On May 31, 2016 9:46am 8480-6 BP Systolic Heart Rate/Pulse Pulse Rate (adult): 65 /min On May 26, 2016 10:24pm Pulse Rate (adult): 62 /min On May 31, 2016 9:46am 8867-4 Heart Rate 8893-0 Pulse rate Respiratory Rate Respiratory Rate: 20 /min On May 26, 2016 10:24pm Respiratory Rate: 20 /min On May 31, 2016 9:46am 9279-1 Respiratory rate Temperature in Fahrenheit Temperature (Fahrenheit): 96.8 [degF] On May 26, 2016 10:24pm Temperature (Fahrenheit): 97.7 [degF] On May 31, 2016 9:46am 8310-5 Body Temperature Functional Status Functional and Cognitive Status No Functional Status Data Medications Home Medications - Medications that the patient was taking prior to arrival at the hospital Visit/Account #[id number] (May 26, 2016 9:05pm - May 31, 2016 1: 23pm) Medication Route Sig/Schedule Precondition/Indication Comments/Instructions Codes CARAFATE(SUCRALFATE) 1 GM TABLET Dose: 1 G ORAL 4 TIMES DAILY Sucralfate 1000 MG Oral Tablet (RxNorm): 988092 CARAFATE (SUCRALFATE) NDC: 92461290332 ESCITALOPRAM OXALATE(ESCITALOPRAM OXALATE) 20 MG TABLET Dose: 10 MG ORAL DAILY Escitalopram 20 MG Oral Tablet (RxNorm): 283123 ESCITALOPRAM OXALATE (ESCITALOPRAM OXALATE) NDC: 91450976828 Geritol Complete Tablet(IRON/VITAMIN B COMP W-C) 1 EACH TABLET Dose: 2 TAB ORAL DAILY Geritol Complete Tablet (IRON/VITAMIN B COMP W-C) NDC: 99437303035 LOPRESSOR(METOPROLOL TARTRATE) 50 MG TABLET Dose: 50 MG ORAL DAILY Metoprolol Tartrate 50 MG Oral Tablet [Lopressor] (RxNorm): 081584 LOPRESSOR (METOPROLOL TARTRATE) NDC: 64355340384 LIPITOR(ATORVASTATIN) 20 MG TAB Dose: 20 MG ORAL DAILY atorvastatin 20 MG Oral Tablet [Lipitor] (RxNorm): 133325 LIPITOR (ATORVASTATIN) NDC: 62702257776 COLACE(DOCUSATE SODIUM) 100 MG CAPSULE Dose: 200 MG ORAL DAILY WITH SUPPER Docusate Sodium 100 MG Oral Capsule (RxNorm): 2069651 COLACE (DOCUSATE SODIUM) NDC: 43916067040 IMMODIUM(LOPERAMIDE HCL) 2 MG CAP Dose: 2 MG ORAL NEEDED DIARRHEA Loperamide Hydrochloride 2 MG Oral Capsule (RxNorm): 665152 IMMODIUM (LOPERAMIDE HCL) NDC: 12316373779 ADVAIR DISKUS 50-100(SALMETEROL/FLUTICASONE) 14 DOSE PUFF Dose: 1 DOSE INHALED TWICE A DAY ADVAIR DISKUS 50-100 (SALMETEROL/FLUTICASONE) NDC: 09895101175 PROTONIX(PANTOPRAZOLE) 40 MG TAB Dose: 40 MG ORAL 60 MIN BEFORE BKFST pantoprazole 40 MG Delayed Release Oral Tablet [Protonix] (RxNorm): 714716 PROTONIX (PANTOPRAZOLE) NDC: 06044727293 PEPCID(FAMOTIDINE) 40 MG TABLET Dose: 40 MG ORAL AT BEDTIME Famotidine 40 MG Oral Tablet [Pepcid] (RxNorm): 804019 PEPCID (FAMOTIDINE) NDC: 29754409541 B12 Health Booster(CYANOCOBALAMIN (VITAMIN B-12)) 1000 MCG/15 ML LIQUID Dose: 1000 MCG ORAL DAILY B12 Health Booster (CYANOCOBALAMIN (VITAMIN B-12)) NDC: 23200780211 DIOVAN(VALSARTAN) 160 MG TABLET Dose: 160 MG ORAL TWICE A DAY valsartan 160 MG Oral Tablet [Diovan] (RxNorm): 097592 DIOVAN (VALSARTAN) NDC: 69149572339 FLONASE(FLUTICASONE PROPIONATE) 16 GM NASAL SPRAY Dose: 2 SPRAY IN NASAL AT BEDTIME Rx Instructions: 2 SPRAY(S) EACH NOSTRIL Fluticasone propionate 0.05 MG/ACTUAT Metered Dose Nasal [place] (RxNorm): 6680182 FLONASE (FLUTICASONE PROPIONATE) NDC: 56004279425 DESYREL(TraZODone HCL) 150 MG TAB Dose: 300 MG ORAL AT BEDTIME Trazodone Hydrochloride 150 MG Oral Tablet (RxNorm): 511069 DESYREL (TraZODone HCL) NDC: 54158267659 ASPIRIN(ASPIRIN) 325 MG TABLET.DR Dose: 325 MG ORAL NEEDED PAIN Aspirin 325 MG Delayed Release Oral Tablet (RxNorm): 065286 ASPIRIN (ASPIRIN) NDC: 17032462162 FOLIC ACID(FOLIC ACID) 1 MG TABLET Dose: 1 MG ORAL DAILY Folic Acid 1 MG Oral Tablet (RxNorm): 001790 FOLIC ACID (FOLIC ACID) NDC: 80289694745 PERCOCET 10-325(OxyCODONE HCL/ACETAMINOPHEN) 1 EACH TABLET Dose: 1-2 TAB ORAL EVERY 4 HOURS PAIN Acetaminophen 325 MG / Oxycodone Hydrochloride 10 MG Oral Tablet [Percocet] ( RxNorm): 5917751 PERCOCET 10-325 (OxyCODONE HCL/ACETAMINOPHEN) NDC: 56641747090 SUCRALFATE(SUCRALFATE) 1 GM TABLET Dose: 1 GM ORAL EVERY 6 HOURS INDIGESTION Sucralfate 1000 MG Oral Tablet (RxNorm): 386598 SUCRALFATE (SUCRALFATE) NDC: 49858876148 TOPROL XL(METOPROLOL SUCCINATE) 50 MG TAB Dose: 50 MG ORAL DAILY 24 HR metoprolol succinate 50 MG Extended Release Oral Tablet [Toprol] (RxNorm ): 859263 TOPROL XL (METOPROLOL SUCCINATE) NDC: 51971010315 Geritol Complete Tablet(IRON/VITAMIN B COMP W-C) 1 EACH TABLET Dose: 1 EACH ORAL DAILY Geritol Complete Tablet (IRON/VITAMIN B COMP W-C) NDC: 26112948208 VITAMIN B12(CYANOCOBALAMIN) 100 MCG TABLET Dose: 100 MCG ORAL DAILY Vitamin B 12 0.1 MG Oral Tablet (RxNorm): 792055 VITAMIN B12 (CYANOCOBALAMIN) NDC: 80915766670 COLACE(DOCUSATE SODIUM) 100 MG CAPSULE Dose: 100 MG ORAL 3 TIMES A DAY Docusate Sodium 100 MG Oral Capsule [Colace] (RxNorm): 0089106 COLACE (DOCUSATE SODIUM) NDC: 77202974700 VENTOLIN HFA(ALBUTEROL SULF) 18 GM PUFF Dose: 2 PUFF INHALED EVERY 4 HOURS SHORTNESS OF BREATH/WHEEZING 200 ACTUAT Albuterol 0.09 MG/ACTUAT Metered Dose Inhaler [Proventil] (RxNorm) : 461891 VENTOLIN HFA (ALBUTEROL SULF) NDC: 55103015948 FLONASE(FLUTICASONE PROPIONATE) 16 GM NASAL SPRAY Dose: 1 SPRAY IN NASAL DAILY CONGESTION Rx Instructions: 2 SPRAY(S) EACH NOSTRIL Fluticasone propionate 0.05 MG/ACTUAT Metered Dose Nasal [place] (RxNorm): 4644089 FLONASE (FLUTICASONE PROPIONATE) NDC: 51388901607 ADVAIR DISKUS 50-250(SALMETEROL/FLUTICASONE) 1 DISK W/DEV PUFF Dose: 1 DOSE INHALED TWICE A DAY ADVAIR DISKUS 50-250 (SALMETEROL/FLUTICASONE) NDC: 01927471293 Inpatient/Ordered Medications - Medications administered during hospital visit Visit/Account #[id number] (May 26, 2016 9:05pm - May 31, 2016 1: 23pm) Medication Route Sig/Schedule Precondition/Indication Comments/Instructions Codes VITAMIN B1 INJ(THIAMINE HCL) 100 MG/ML INJECTION Dose: 1 ML INTRAVEN NOW Label Comments: Do not administer if given Banana Bag Thiamine hydrochloride 100 MG/ML Injectable Solution (RxNorm): 841894 VITAMIN B1 INJ (THIAMINE HCL) NDC: 30735104487 VITAMIN B1(THIAMINE HCL) 100 MG TAB Dose: 100 MG ORAL DAILY Thiamine 100 MG Oral Tablet (RxNorm): 802993 VITAMIN B1 (THIAMINE HCL) NDC: 77266412697 FOLIC ACID 1 MG TAB Dose: 1 MG ORAL DAILY Folic Acid 1 MG Oral Tablet (RxNorm): 913046 (FOLIC ACID) NDC: 45985793074 THERAGRAN(MULTIVITAMINS THERAPEUTIC) 1 TAB TAB Dose: 1 TAB ORAL DAILY AT BKFST THERAGRAN (MULTIVITAMINS THERAPEUTIC) NDC: 14703253131 ATIVAN(LORazepam) 2 MG TAB Dose: 0 MG ORAL Q2H PRN Reason: CIWA SCORE Label Comments: Do NOT give if patient somnolent or difficult to arouse* Special Dose Instructions: See Protocol Lorazepam 2 MG Oral Tablet (RxNorm): 477806 ATIVAN (LORazepam) NDC: 32923825737 IV Medication Carriers: NORMAL SALINE(SODIUM CHLORIDE) 1000 ML INJECTION Dose: 1000 ML INTRAVEN .Q8H (Rate: 125 MLS/HR Duration: 8 HR) Carriers: 1000 ML Sodium Chloride 9 MG/ML Injection (RxNorm): 2229815 NORMAL SALINE (SODIUM CHLORIDE) NDC: 68353501223 VITAMIN B12 + COMPLEX(VITAMIN B COMPLEX) 1 TAB TAB Dose: 1 TAB ORAL DAILY VITAMIN B12 + COMPLEX (VITAMIN B COMPLEX) NDC: 68292097961 LOVENOX(ENOXAPARIN) 40 MG/0.4 ML INJECTION Dose: 0.4 ML SUBCUTANEOUSLY DAILY@06 Label Comments: INJECT SC INTO ABDOMINAL WALL ONLY. 0.4 ML Enoxaparin sodium 100 MG/ML Prefilled Syringe [Lovenox] (RxNorm): 187353 LOVENOX (ENOXAPARIN) NDC: 15311939953 TYLENOL(ACETAMINOPHEN) 500 MG TAB Dose: 1000 MG ORAL Q6H PRN Reason: PAIN OR FEVER Label Comments: DO NOT EXCEED 4000 MG PER 24 HR Acetaminophen 500 MG Oral Tablet [Mapap] (RxNorm): 105379 TYLENOL (ACETAMINOPHEN) NDC: 43271539182 TOPROL XL(METOPROLOL SUCCINATE) 50 MG TAB Dose: 50 MG ORAL DAILY Label Comments: MAY INCREASE FALL RISK 24 HR metoprolol succinate 50 MG Extended Release Oral Tablet [Toprol] (RxNorm ): 259623 TOPROL XL (METOPROLOL SUCCINATE) NDC: 66761357114 ARTHROTEC-50(DICLOFENAC/MISOPROSTOL) 1 TAB TAB Dose: 1 TAB ORAL WITH BREAKFAST & SUPPER Special Dose Instructions: NOT true NSAID allergy Diclofenac Sodium 50 MG / Misoprostol 0.2 MG Delayed Release Oral Tablet ( RxNorm): 892249 ARTHROTEC-50 (DICLOFENAC/MISOPROSTOL) NDC: 07561775404 NICOTROL INHALER(NICOTINE) 1 UNIT/10 MG INHALER Dose: 10 MG INHALED NEEDED PRN Reason: SMOKING CESSATION Label Comments: SEND 1 MOUTH PIECE PLUS 30 CARTRIDGES PLUS PATIENT INSTRUCTIONS. (EACH 10 MG CARTRIDGE DELIVERS 4 MG NICOTINE) Nicotine 4 MG/ACTUAT Inhalant Solution [Nicotrol] (RxNorm): 7243572 NICOTROL INHALER (NICOTINE) NDC: [id number] CYMBALTA(DULoxetine HCL) 30 MG CAP Dose: 30 MG ORAL DAILY Label Comments: MAY INCREASE FALL RISK duloxetine 30 MG Delayed Release Oral Capsule (RxNorm): 854431 CYMBALTA (DULoxetine HCL) NDC: [id number] NEURONTIN(GABAPENTIN) 300 MG CAP Dose: 300 MG ORAL 3 TIMES A DAY Label Comments: MAY INCREASE FALL RISK gabapentin 300 MG Oral Capsule [Neurontin] (RxNorm): 660224 NEURONTIN (GABAPENTIN) NDC: [id number] LIPITOR(ATORVASTATIN) 20 MG TAB Dose: 20 MG ORAL AT BEDTIME Label Comments: TERATOGENIC. WOMEN SHOULD NOT HANDLE OR CRUSH. atorvastatin 20 MG Oral Tablet [Lipitor] (RxNorm): 839685 LIPITOR (ATORVASTATIN) NDC: [id number] VITAMIN B-12(CYANOCOBALAMIN) 100 MCG TAB Dose: 100 MCG ORAL DAILY Vitamin B 12 0.1 MG Oral Tablet (RxNorm): 058812 VITAMIN B-12 (CYANOCOBALAMIN) NDC: 31332237301 COLACE(DOCUSATE SODIUM) 100 MG CAP Dose: 100 MG ORAL 3 TIMES A DAY Docusate Sodium 100 MG Oral Capsule (RxNorm): 8542637 COLACE (DOCUSATE SODIUM) NDC: 38909958135 TOPROL XL(METOPROLOL SUCCINATE) 50 MG TAB Dose: 50 MG ORAL DAILY Label Comments: MAY INCREASE FALL RISK 24 HR metoprolol succinate 50 MG Extended Release Oral Tablet [Toprol] (RxNorm ): 771696 TOPROL XL (METOPROLOL SUCCINATE) NDC: 85146757424 PROTONIX(PANTOPRAZOLE SOD) 40 MG TAB Dose: 40 MG ORAL DAILY@06 pantoprazole 40 MG Delayed Release Oral Tablet [Protonix] (RxNorm): 358772 PROTONIX (PANTOPRAZOLE SOD) NDC: 66432443807 DESYREL(TraZODone HCL) 150 MG TAB Dose: 300 MG ORAL AT BEDTIME Label Comments: MAY INCREASE FALL RISK Trazodone Hydrochloride 150 MG Oral Tablet (RxNorm): 967949 DESYREL (TraZODone HCL) NDC: 42540278844 DIOVAN(VALSARTAN) 160 MG TAB Dose: 160 MG ORAL TWICE A DAY valsartan 160 MG Oral Tablet [Diovan] (RxNorm): 586933 DIOVAN (VALSARTAN) NDC: 32998424832 OxyCONTIN(OxyCODONE) 15 MG TAB Dose: 15 MG ORAL TWICE A DAY 12 HR Oxycodone Hydrochloride 15 MG Extended Release Oral Tablet [Oxycontin] ( RxNorm): 0319436 OxyCONTIN (OxyCODONE) NDC: 42430745754 SYMBICORT 160(BUDESONIDE/FORMOTEROL) 60 PUFF/6 GM INHALER Dose: 0.2 GM INHALED TWICE DAILY Label Comments: SHAKE WELL FOR 5 SECONDS BEFORE EACH USE <<substituted for ADVAIR>> SYMBICORT 160 (BUDESONIDE/FORMOTEROL) NDC: 77333943351 TYLENOL ARTHRITIS EXTENDED RELIEF(ACETAMINOPHEN ER) 650 MG TAB Dose: 1300 MG ORAL WITH BREAKFAST & SUPPER Label Comments: DO NOT EXCEED 4000 MG PER 24 HR 8 HR Acetaminophen 650 MG Extended Release Oral Tablet [Mapap] (RxNorm): 4941086 TYLENOL ARTHRITIS EXTENDED RELIEF (ACETAMINOPHEN ER) NDC: 24830023262 ARTHROTEC-75(DICLOFENAC/MISOPROSTOL) 1 TAB TAB Dose: 1 TAB ORAL WITH BREAKFAST & SUPPER Diclofenac Sodium 75 MG / Misoprostol 0.2 MG Delayed Release Oral Tablet ( RxNorm): 3427392 ARTHROTEC-75 (DICLOFENAC/MISOPROSTOL) NDC: 09778474124 DURAGESIC 25(FentaNYL) 1 PATCH PATCH Dose: 1 PATCH TOPICALLY Q72H Label Comments: MAY INCREASE FALL RISK *Warning* patients with fever or patches exposed to a heat source can lead to substantial increases in fentanyl absorption and possible overdose. 72 HR Fentanyl 0.025 MG/HR Transdermal System (RxNorm): 165368 DURAGESIC 25 (FentaNYL) NDC: 53988038064 Discharge Medications - Medications that patient should continue to take. Review with physician Visit/Account #[id number] (May 26, 2016 9:05pm - May 31, 2016 1: 23pm) Medication Route Sig/Schedule Precondition/Indication Comments/Instructions Codes LIPITOR(ATORVASTATIN) 20 MG TAB Dose: 20 MG ORAL DAILY atorvastatin 20 MG Oral Tablet [Lipitor] (RxNorm): 775529 LIPITOR (ATORVASTATIN) NDC: 64165731889 PROTONIX(PANTOPRAZOLE) 40 MG TAB Dose: 40 MG ORAL 60 MIN BEFORE BKFST pantoprazole 40 MG Delayed Release Oral Tablet [Protonix] (RxNorm): 242516 PROTONIX (PANTOPRAZOLE) NDC: 59253968017 PEPCID(FAMOTIDINE) 40 MG TABLET Dose: 40 MG ORAL AT BEDTIME Famotidine 40 MG Oral Tablet [Pepcid] (RxNorm): 976859 PEPCID (FAMOTIDINE) NDC: 39561170611 DIOVAN(VALSARTAN) 160 MG TABLET Dose: 160 MG ORAL TWICE A DAY valsartan 160 MG Oral Tablet [Diovan] (RxNorm): 604400 DIOVAN (VALSARTAN) NDC: 36207093209 DESYREL(TraZODone HCL) 150 MG TAB Dose: 300 MG ORAL AT BEDTIME Trazodone Hydrochloride 150 MG Oral Tablet (RxNorm): 393546 DESYREL (TraZODone HCL) NDC: 89117240510 FOLIC ACID(FOLIC ACID) 1 MG TABLET Dose: 1 MG ORAL DAILY Folic Acid 1 MG Oral Tablet (RxNorm): 531610 FOLIC ACID (FOLIC ACID) NDC: 62434944120 SUCRALFATE(SUCRALFATE) 1 GM TABLET Dose: 1 GM ORAL EVERY 6 HOURS INDIGESTION Sucralfate 1000 MG Oral Tablet (RxNorm): 702609 SUCRALFATE (SUCRALFATE) NDC: 71577520255 TOPROL XL(METOPROLOL SUCCINATE) 50 MG TAB Dose: 50 MG ORAL DAILY 24 HR metoprolol succinate 50 MG Extended Release Oral Tablet [Toprol] (RxNorm ): 116536 TOPROL XL (METOPROLOL SUCCINATE) NDC: 63767581604 Geritol Complete Tablet(IRON/VITAMIN B COMP W-C) 1 EACH TABLET Dose: 1 EACH ORAL DAILY Geritol Complete Tablet (IRON/VITAMIN B COMP W-C) NDC: 63266249064 VITAMIN B12(CYANOCOBALAMIN) 100 MCG TABLET Dose: 100 MCG ORAL DAILY Vitamin B 12 0.1 MG Oral Tablet (RxNorm): 305697 VITAMIN B12 (CYANOCOBALAMIN) NDC: 50359090060 COLACE(DOCUSATE SODIUM) 100 MG CAPSULE Dose: 100 MG ORAL 3 TIMES A DAY Docusate Sodium 100 MG Oral Capsule [Colace] (RxNorm): 5050848 COLACE (DOCUSATE SODIUM) NDC: 46721792933 VENTOLIN HFA(ALBUTEROL SULF) 18 GM PUFF Dose: 2 PUFF INHALED EVERY 4 HOURS SHORTNESS OF BREATH/WHEEZING 200 ACTUAT Albuterol 0.09 MG/ACTUAT Metered Dose Inhaler [Proventil] (RxNorm) : 647559 VENTOLIN HFA (ALBUTEROL SULF) NDC: 02735132757 FLONASE(FLUTICASONE PROPIONATE) 16 GM NASAL SPRAY Dose: 1 SPRAY IN NASAL DAILY CONGESTION Rx Instructions: 2 SPRAY(S) EACH NOSTRIL Fluticasone propionate 0.05 MG/ACTUAT Metered Dose Nasal [place] (RxNorm): 5039598 FLONASE (FLUTICASONE PROPIONATE) NDC: 69374023281 ADVAIR DISKUS 50-250(SALMETEROL/FLUTICASONE) 1 DISK W/DEV PUFF Dose: 1 DOSE INHALED TWICE A DAY ADVAIR DISKUS 50-250 (SALMETEROL/FLUTICASONE) NDC: 77224565368 TYLENOL ARTHRITIS EXTENDED RELIEF(ACETAMINOPHEN ER) 650 MG TAB Dose: 1300 MG ORAL WITH BREAKFAST & SUPPER 8 HR Acetaminophen 650 MG Extended Release Oral Tablet [Mapap] (RxNorm): 0344812 TYLENOL ARTHRITIS EXTENDED RELIEF (ACETAMINOPHEN ER) NDC: 01514911193 DICLOFENAC-MISOPROST 75-200 TB(DICLOFENAC SODIUM/MISOPROSTOL) 1 EACH TAB.IR.DR Dose: 1 TAB ORAL WITH BREAKFAST & SUPPER Diclofenac Sodium 75 MG / Misoprostol 0.2 MG Delayed Release Oral Tablet ( RxNorm): 5851114 DICLOFENAC-MISOPROST 75-200 TB (DICLOFENAC SODIUM/MISOPROSTOL) NDC: 70618191645 Cymbalta(DULoxetine HCL) 30 MG CAP Dose: 30 MG ORAL DAILY duloxetine 30 MG Delayed Release Oral Capsule [Cymbalta] (RxNorm): 415199 Cymbalta (DULoxetine HCL) NDC: 61350328551 THERAGRAN(MULTIVITAMINS THERAPEUTIC) 1 TAB TABLET Dose: 1 TAB ORAL DAILY AT [facility] THERAGRAN (MULTIVITAMINS THERAPEUTIC) NDC: 38399098384 NICOTROL INHALER(NICOTINE) 10 MG/CART INHALER Dose: 1 UNIT INHALED NEEDED SMOKING CESSATION Nicotine 4 MG/ACTUAT Inhalant Solution [Nicotrol] (RxNorm): 8531312 NICOTROL INHALER (NICOTINE) NDC: 11492333201 GABAPENTIN(GABAPENTIN) 400 MG CAPSULE Dose: 400 MG ORAL DIRECTED Rx Instructions: One before each meal and two at bedtime gabapentin 400 MG Oral Capsule (RxNorm): 899261 GABAPENTIN (GABAPENTIN) NDC: 48582006377 Oxycodone Hcl(OxyCODONE) 15 MG TABLET Dose: 15 MG ORAL EVERY 8 HOURS PAIN Rx Inst[facility]: [facility] Oxycodone Hydrochloride 15 MG Oral Tablet (RxNorm): 4575958 Oxycodone Hcl (OxyCODONE) [facility]: [id number] History Of Encounters Encounters Visit/Account #[id number] (May 26, 2016 9:05pm - May 31, 2016 1: 23pm) Account Status Physican Of Record Reason For Visit Visit Diagnosis Start Date/Time Stop Date/Time IN MITZI Queen TRENT SOLITARIO MD ETOH INTOXICATION/SUICIDAL IDEATION Not Available May 26, 2016 9:05pm May 31, 2016 1:23pm History of Procedures Procedure List No procedures recorded. Discharge Instructions Discharge Instructions Visit/Account #[id number] (May 26, 2016 9:05pm - May 31, 2016 1: 23pm) DISCHARGE INSTRUCTIONS Physician Documentation PROVIDER INSTRUCTIONS Discharge Diet As Tolerated Discharge Activity/Weight Bearing Status tolerated. Walks with a walker. Other Discharge Instructions Further narcotic analgesics are discouraged. They should be managed by a pain specialist physician if at all. Discharge Diet As Tolerated Discharge Activity/Weight Bearing Status tolerated. Walks with a walker. Other Discharge Instructions Further narcotic analgesics are discouraged. They should be managed by a pain specialist physician if at all. REASON TO CALL PROVIDER Notify Physician if: Fever over 100.5 degrees by mouth, increased shortness of breath or other problems. FOLLOW UP APPOINTMENTS Follow Up Appointment Date/Time: Patient is to followup with his regular physician within 2 weeks after being dismissed from the behavioral health unit. Social History Social History No Social History Data. Immunizations Immunizations Patient Unit Number: [id number] Immunizations No immunizations recorded.
--- OUTSIDE RECORDS SUMMARY | 2018-02-04 14:42 | XMS REPORT | Continuity Of Care Document ---
Author Author [facility] Organization [facility] Address [address] [place] [address] Phone Care Team Providers Care Bail Agent Name Role Phone HARLEY ROMERO, SULY CP MITRA STREETER DO PP Results Lab Results Visit/Account #[id number] (October 09, 2016 12:29pm - October 09, 2016 2:29pm) Test Result Date/Time COMPLETE BLOOD COUNT WITH DIFF WHITE BLOOD COUNT(4.0-11.0 10E3/UL) 9.6 10E3/UL October 09, 2016 12:50pm RED BLOOD COUNT(4.50-5.90 10E6/UL) 5.04 10E6/UL October 09, 2016 12:50pm HEMOGLOBIN(13.5-17.5 G/DL) 16.4 G/DL October 09, 2016 12:50pm HEMATOCRIT(41.0-53.0 %) 49.1 % October 09, 2016 12:50pm MEAN CORPUSCULAR VOLUME(82.0-100.0 FL) 97.4 FL October 09, 2016 12:50pm MEAN CORPUSCULAR HEMOGLOBIN(26.0-34.0 PG) 32.5 PG October 09, 2016 12:50pm MEAN CORPUSCULAR HGB CONC(31.5-36.5 G/DL) 33.4 G/DL October 09, 2016 12:50pm RED CELL DISTRIBUTION WIDTH(11.5-14.5 %) 14.1 % October 09, 2016 12:50pm 777-3: PLATELET COUNT(150-450 10E3/UL) 174 10E3/UL October 09, 2016 12:50pm MEAN PLATELET VOLUME(8.2-12.4 FL) 9.1 FL October 09, 2016 12:50pm NEUTROPHILS % (AUTO)(40-70 %) 73 % October 09, 2016 12:50pm LYMPHOCYTES % (AUTO)(15-45 %) 19 % October 09, 2016 12:50pm MONOCYTES % (AUTO)(2-10 %) 7 % October 09, 2016 12:50pm EOSINOPHILS % (AUTO)(0-6 %) 1 % October 09, 2016 12:50pm BASOPHILS % (AUTO)(0-1 %) 0 % October 09, 2016 12:50pm IMMATURE GRANS % (AUTO)(0-0 %) 0 % October 09, 2016 12:50pm NUCLEATED RBCS (AUTO)(0-0 %) 0 % October 09, 2016 12:50pm NEUTROPHILS # (AUTO)(2.5-7.5 10E3/UL) 7.0 10E3/UL October 09, 2016 12:50pm LYMPHOCYTES # (AUTO)(1.0-4.0 10E3/UL) 1.8 10E3/UL October 09, 2016 12:50pm MONOCYTES # (AUTO)(0.2-0.8 10E3/UL) 0.7 10E3/UL October 09, 2016 12:50pm EOSINOPHILS # (AUTO)(0.0-0.4 10E3/UL) 0.1 10E3/UL October 09, 2016 12:50pm BASOPHILS # (AUTO)(0.0-0.2 10E3/UL) 0.0 10E3/UL October 09, 2016 12:50pm IMMATURE GRANS # (AUTO)(0.0-0.0 10E3/UL) 0.0 10E3/UL October 09, 2016 12:50pm DIFF TYPE AUTOMATED October 09, 2016 12:50pm PROTHROMBIN TIME WITH INR PROTHROMBIN TIME(12.1-14.0 SEC) 12.2 SEC October 09, 2016 12:50pm 15708-3: INR 0.9 October 09, 2016 12:50pm PARTIAL THROMBOPLASTIN TIME PARTIAL THROMBOPLASTIN TIME(22.2-37.4 SEC) 25.9 SEC October 09, 2016 12:50pm COMPLETE METABOLIC PROFILE GLUCOSE(70-110 MG/DL) 122 MG/DL October 09, 2016 12:50pm BLOOD UREA NITROGEN(6-20 MG/DL) 19 MG/DL October 09, 2016 12:50pm CREATININE(0.50-1.20 MG/DL) 1.04 MG/DL October 09, 2016 12:50pm EST GLOMERULAR FILTRATION RATE(Greater than or equal to 60) Greater than or equal to 60 Result Comments: If the patient is of -Citizen Of [place] descent/extraction multiply the eGFR value by 1.212 to obtain the actual eGFR. >=60 mg/dL Normal 30-59 mg/dL Moderate Kidney Disease 15-29 mg/dL Severe Kidney Disease <15 mg/dL Kidney Failure October 09, 2016 12:50pm BUN CREATININE RATIO(10.0-20.0 RATIO) 18.0 RATIO October 09, 2016 12:50pm SODIUM(135-145 MMOL/L) 136 MMOL/L October 09, 2016 12:50pm POTASSIUM(3.6-5.0 MMOL/L) 3.9 MMOL/L October 09, 2016 12:50pm CHLORIDE(101-111 MMOL/L) 104 MMOL/L October 09, 2016 12:50pm CO2(21-31 MMOL/L) 24 MMOL/L October 09, 2016 12:50pm ANION GAP(8-18) 12 October 09, 2016 12:50pm OSMO CALCULATED(270.0-290.0) 275.5 October 09, 2016 12:50pm CALCIUM(8.5-10.5 MG/DL) 9.1 MG/DL October 09, 2016 12:50pm BILIRUBIN,TOTAL(0.1-1.2 MG/DL) 0.4 MG/DL October 09, 2016 12:50pm ALKALINE PHOSPHATASE(42-121 IU/L) 59 IU/L October 09, 2016 12:50pm ASPARTATE AMINO TRANSFERASE(10-42 IU/L) 28 IU/L October 09, 2016 12:50pm ALANINE AMINOTRANSFERASE(10-60 IU/L) 15 IU/L October 09, 2016 12:50pm TOTAL PROTEIN(6.4-8.2 G/DL) 6.9 G/DL October 09, 2016 12:50pm ALBUMIN(3.5-5.5 G/DL) 3.8 G/DL October 09, 2016 12:50pm GLOBULIN(2.4-3.6) 3.1 October 09, 2016 12:50pm ALBUMIN/GLOBULIN RATIO(0.9-1.8 RATIO) 1.2 RATIO October 09, 2016 12:50pm CARDIAC TROPONIN I CARDIAC TROPONIN I(0.01-0.04 NG/ML) 0.02 NG/ML Result Comments: REFERENCE RANGES: NEGATIVE < 0.04 NG/ML POSSIBLE MYCARDIAL INVOLVEMENT >/=0.04 NG/ML INTERPRET TROPONIN I RESULT IN LIGHT OF THE TOTAL CLINICAL PRESENTATION INCLUDING CLINICAL HISTORY. ANY CONDITION RESULTING IN MYOCARDIAL INJURY CAN POTENTIALLY ELEVATE TROPONIN I LEVELS ABOVE EXPECTED NORMAL RANGES. NOTE NEW REFERENCE RANGE October 09, 2016 12:50pm Allergies and Adverse Reactions Allergies and Adverse Reactions Patient Unit Number: [id number] Agent Type Reaction Severity Status METOCLOPRAMIDE HCL Drug Allergy Unknown Moderate Active KETOROLAC TROMETHAMINE Drug Allergy Unknown Unknown Active NSAIDS (NON-STEROIDAL ANTI-INFLAMMA Drug Adverse Reaction Unknown Moderate Active PROCHLORPERAZINE Drug Allergy Unknown Mild Active MORPHINE Drug Allergy HIVES Severe Active Problem List Problem List Visit/Account #[id number] (October 09, 2016 12:29pm - October 09, 2016 2:29pm) Acute Problems: Code/Condition Comments Documented Start Date Documented Resolved Date Code (s) COPD with acute exacerbation ICD10: J44.1 COPD with acute exacerbation SNOMED: 439373841 Chronic obstructive pulmonary disease with acute exacerbation Patient Unit Number: [id number] Chronic Problems: Code/Condition Comments Documented Start Date Documented Resolved Date Code (s) Alcohol intoxication July 21, 2013 ICD9: 305.00 Alcohol intoxication SNOMED: 91513257 Alcoholic intoxication Plan of Care Plan Of Care Visit/Account #[id number] (October 09, 2016 12:29pm - October 09, 2016 2:29pm) Patient Instructions You had an evaluation of your chest pain in the emergency department. Tests included an EKG (heart tracings), chest x-ray, and blood tests. These tests indicate you are at low risk of having a heart problem in the near future. Common causes of pain like this included pain for the muscles of the chest, soreness of the chest wall, anxiety and stress-related pain. It can also be linked to discomfort from the stomach, gallbladder or other abdominal problem. Evaluation in the emergency department is preliminary and followup with your physician is essential. There is no test that is perfect for detecting heart disease. It is crucial that your doctor see her in followup to decide if any further testing is needed. It is important that you return to the emergency department if you develop any one of the followin. Increase to recurring chest pain or pain that radiates to the arm, neck or abdomen 2. Chest pain with sweating 3. Severe dizziness or weakness 4. Shortness of breath or coughing up blood 5. Severe back or abdominal pain or vomiting 6. Blood in the stool or black stools 7. Fever After your visit, get plenty of rest and avoid any activity that brings on the pain. Please do not smoke or drink alcohol until symptoms are completely better. Make an appointment to see your doctor within the next 48 hrs. Vital Signs Vital Signs Visit/Account #[id number] (October 09, 2016 12:29pm - October 09, 2016 2:29pm) Sign First Result Last Result Code(s) Temperature in Fahrenheit Temperature (Fahrenheit): 97.7 [degF] On October 09, 2016 12:25pm Temperature (Fahrenheit): 98.0 [degF] On October 09, 2016 2:28pm 8310-5 Body Temperature Weight in Kilograms Weight (Kilograms): 74.0900 kg On October 09, 2016 12:25pm 3141-9 Weight Measured Functional Status Functional and Cognitive Status No Functional Status Data Medications Inpatient/Ordered Medications - Medications administered during hospital visit Visit/Account #[id number] (October 09, 2016 12:29pm - October 09, 2016 2:29pm) Medication Route Sig/Schedule Precondition/Indication Comments/Instructions Codes VENTOLIN 0.5% NEB(ALBUTEROL SULF) 2.5 MG/0.5 ML INHALER Dose: 1 ML INHALED NOW Albuterol 1 MG/ML Inhalant Solution (RxNorm): 076082 VENTOLIN 0.5% NEB (ALBUTEROL SULF) NDC: 13237336317 ATROVENT 0.02% NEB(IPRATROPIUM BROMIDE) 0.5 MG/2.5 ML SOLUTION Dose: 2.5 ML INHALED NOW Ipratropium [place] 0.2 MG/ML Inhalant Solution (RxNorm): 597171 ATROVENT 0.02% NEB (IPRATROPIUM BROMIDE) NDC: 19455712291 SOLU-Medrol INJ(MethylPREDNISolone SOD SUCC) 125 MG/2 ML INJECTION Dose: 2 ML INTRAVEN NOW Methylprednisolone 125 MG Injection [Solu-Medrol] (RxNorm): 5415752 SOLU-Medrol INJ (MethylPREDNISolone SOD SUCC) NDC: 99913518448 LIDODERM 5% PATCH(LIDOCAINE) 1 PATCH PATCH Dose: 0 PATCH TOPICALLY NOW Label Comments: PATCH MAY REMAIN IN PLACE FOR UP TO 12 HOURS IN EACH 24 HOUR PERIOD Lidocaine 0.05 MG/MG Medicated Patch [Lidoderm] (RxNorm): 6314027 LIDODERM 5% PATCH (LIDOCAINE) NDC: 99274296784 TYLENOL(ACETAMINOPHEN) 500 MG TAB Dose: 1000 MG ORAL NOW Label Comments: DO NOT EXCEED 4000 MG PER 24 HR Acetaminophen 500 MG Oral Tablet [Mapap] (RxNorm): 142173 TYLENOL (ACETAMINOPHEN) NDC: 86704073044 Discharge Medications - Medications that patient should continue to take. Review with physician Visit/Account #[id number] (October 09, 2016 12:29pm - October 09, 2016 2:29pm) Medication Route Sig/Schedule Precondition/Indication Comments/Instructions Codes Deltasone(PredniSONE) 20 MG TAB Dose: 60 MG ORAL DAILY Prednisone 20 MG Oral Tablet (RxNorm): 345876 Deltasone (PredniSONE) NDC: 61490121243 History Of Encounters Encounters Visit/Account #[id number] (October 09, 2016 12:29pm - October 09, 2016 2:29pm) Account Status Physican Of Record Reason For Visit Visit Diagnosis Start Date/Time Stop Date/Time KEIRA SOUZA MD Shortness of breath Not Available Oct 09, 2016 12:29pm Oct 09, 2016 2:29pm History of Procedures Procedure List No procedures recorded. Discharge Instructions Discharge Instructions Visit/Account #[id number] (October 09, 2016 12:29pm - October 09, 2016 2:29pm) DISCHARGE INSTRUCTIONS Physician Documentation Social History Social History No Social History Data. Immunizations Immunizations Patient Unit Number: [id number] Immunizations No immunizations recorded.
--- OUTSIDE RECORDS SUMMARY | 2018-02-04 14:42 | XMS REPORT | Continuity Of Care Document ---
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 Name Role Phone VICTOR MANUEL ROMERO, JARETT Queen CP UNASSIGNED, ED PHYSICIAN Unavailable Unavailable Results Lab Results Visit/Account #[id number] (June 27, 2015 6:41pm - June 27, 2015 9:10pm) Test Result Date/Time 62619-6: COMPLETE BLOOD COUNT WITH DIFF WHITE BLOOD COUNT(4.0-11.0 10E3/UL) 8.6 10E3/UL June 27, 2015 6:50pm RED BLOOD COUNT(4.50-5.90 10E6/UL) 5.57 10E6/UL June 27, 2015 6:50pm HEMOGLOBIN(13.5-17.5 G/DL) 18.0 G/DL June 27, 2015 6:50pm HEMATOCRIT(41.0-53.0 %) 52.6 % June 27, 2015 6:50pm MEAN CORPUSCULAR VOLUME(82.0-100.0 FL) 94.4 FL June 27, 2015 6:50pm 62594-0: MEAN CORPUSCULAR HEMOGLOBIN(26.0-34.0 PG) 32.3 PG June 27, 2015 6:50pm MEAN CORPUSCULAR HGB CONC(31.5-36.5 G/DL) 34.2 G/DL June 27, 2015 6:50pm RED CELL DISTRIBUTION WIDTH(11.5-14.5 %) 13.3 % June 27, 2015 6:50pm 777-3: PLATELET COUNT(150-450 10E3/UL) 206 10E3/UL June 27, 2015 6:50pm MEAN PLATELET VOLUME(8.2-12.4 FL) 9.4 FL June 27, 2015 6:50pm 770-8: NEUTROPHILS % (AUTO)(40-70 %) 66 % June 27, 2015 6:50pm LYMPHOCYTES % (AUTO)(15-45 %) 25 % June 27, 2015 6:50pm 5905-5: MONOCYTES % (AUTO)(2-10 %) 8 % June 27, 2015 6:50pm 713-8: EOSINOPHILS % (AUTO)(0-6 %) 1 % June 27, 2015 6:50pm 706-2: BASOPHILS % (AUTO)(0-1 %) 0 % June 27, 2015 6:50pm 32488-3: IMMATURE GRANS % (AUTO)(0-0 %) 0 % June 27, 2015 6:50pm NUCLEATED RBCS (AUTO)(0-0 %) 0 % June 27, 2015 6:50pm 751-8: NEUTROPHILS # (AUTO)(2.5-7.5 10E3/UL) 5.7 10E3/UL June 27, 2015 6:50pm 32959-7: LYMPHOCYTES # (AUTO)(1.0-4.0 10E3/UL) 2.2 10E3/UL June 27, 2015 6:50pm 742-7: MONOCYTES # (AUTO)(0.2-0.8 10E3/UL) 0.7 10E3/UL June 27, 2015 6:50pm 711-2: EOSINOPHILS # (AUTO)(0.0-0.4 10E3/UL) 0.1 10E3/UL June 27, 2015 6:50pm 704-7: BASOPHILS # (AUTO)(0.0-0.2 10E3/UL) 0.0 10E3/UL June 27, 2015 6:50pm IMMATURE GRANS # (AUTO)(0.0-0.0 10E3/UL) 0.0 10E3/UL June 27, 2015 6:50pm DIFF TYPE AUTOMATED June 27, 2015 6:50pm 52461-0: PROTHROMBIN TIME WITH INR PROTHROMBIN TIME(12.1-14.0 SEC) 11.6 SEC June 27, 2015 6:50pm 79404-1: INR 0.88 Result Comments: INR reference interval applies to patients on anticoagulant therapy. Suggested INR therapeutic range for oral anticoagulant therapy: (Stabilized anticoagulated patients) Routine Therapy: 2.0 to 3.0 Recurrent Myocardial Infarction: 2.5 to 3.5 Mechanical Prosthetic Valves: 2.5 to 3.5 June 27, 2015 6:50pm PARTIAL THROMBOPLASTIN TIME PARTIAL THROMBOPLASTIN TIME(22.2-37.4 SEC) 25.4 SEC June 27, 2015 6:50pm 63195-9: D-DIMER 40628-9: D-DIMER(0.00-0.49 UG/ML) 0.40 UG/ML June 27, 2015 6:50pm 88664-4: COMPLETE METABOLIC PROFILE GLUCOSE(70-110 MG/DL) 83 MG/DL June 27, 2015 6:50pm BLOOD UREA NITROGEN(6-20 MG/DL) 17 MG/DL June 27, 2015 6:50pm CREATININE(0.50-1.20 MG/DL) 0.83 MG/DL June 27, 2015 6:50pm 65230-9: EST GLOMERULAR FILTRATION RATE(Greater than or equal to 60) Greater than or equal to 60 Result Comments: If the patient is of -Cypriot descent/extraction multiply the eGFR value by 1.212 to obtain the actual eGFR. >=60 mg/dL Normal 30-59 mg/dL Moderate Kidney Disease 15-29 mg/dL Severe Kidney Disease <15 mg/dL Kidney Failure June 27, 2015 6:50pm BUN CREATININE RATIO(10.0-20.0 RATIO) 20.0 RATIO June 27, 2015 6:50pm SODIUM(135-145 MMOL/L) 137 MMOL/L June 27, 2015 6:50pm POTASSIUM(3.6-5.0 MMOL/L) 3.4 MMOL/L June 27, 2015 6:50pm CHLORIDE(101-111 MMOL/L) 105 MMOL/L June 27, 2015 6:50pm 8-9: CO2(21-31 MMOL/L) 21 MMOL/L June 27, 2015 6:50pm ANION GAP(8-18) 14 June 27, 2015 6:50pm OSMO CALCULATED(270.0-290.0) 274.5 June 27, 2015 6:50pm CALCIUM(8.5-10.5 MG/DL) 9.4 MG/DL June 27, 2015 6:50pm BILIRUBIN,TOTAL(0.1-1.2 MG/DL) 0.6 MG/DL June 27, 2015 6:50pm ALKALINE PHOSPHATASE(42-121 IU/L) 71 IU/L June 27, 2015 6:50pm ASPARTATE AMINO TRANSFERASE(10-42 IU/L) 19 IU/L June 27, 2015 6:50pm ALANINE AMINOTRANSFERASE(10-60 IU/L) 13 IU/L June 27, 2015 6:50pm TOTAL PROTEIN(6.4-8.2 G/DL) 7.8 G/DL June 27, 2015 6:50pm ALBUMIN(3.5-5.5 G/DL) 4.3 G/DL June 27, 2015 6:50pm GLOBULIN(2.4-3.6) 3.5 June 27, 2015 6:50pm ALBUMIN/GLOBULIN RATIO(0.9-1.8 RATIO) 1.2 RATIO June 27, 2015 6:50pm 78791-1: CARDIAC TROPONIN I 23118-2: CARDIAC TROPONIN I(0.01-0.04 NG/ML) 0.01 NG/ML Result Comments: REFERENCE RANGES: NEGATIVE < 0.04 NG/ML POSSIBLE MYCARDIAL INVOLVEMENT >/=0.04 NG/ML INTERPRET TROPONIN I RESULT IN LIGHT OF THE TOTAL CLINICAL PRESENTATION INCLUDING CLINICAL HISTORY. ANY CONDITION RESULTING IN MYOCARDIAL INJURY CAN POTENTIALLY ELEVATE TROPONIN I LEVELS ABOVE EXPECTED NORMAL RANGES. NOTE NEW REFERENCE RANGE June 27, 2015 6:50pm Allergies and Adverse Reactions Allergies and Adverse Reactions Patient Unit Number: [id number] Agent Type Reaction Severity Status METOCLOPRAMIDE HCL Drug Allergy Unknown Moderate Active KETOROLAC TROMETHAMINE Drug Allergy Unknown Unknown Active NSAIDS (NON-STEROIDAL ANTI-INFLAMMA Drug Adverse Reaction Unknown Moderate Active PROCHLORPERAZINE Drug Allergy Unknown Mild Active MORPHINE Drug Allergy HIVES Severe Active Problem List Problem List Visit/Account #[id number] (June 27, 2015 6:41pm - June 27, 2015 9:10pm) Acute Problems: Code/Condition Comments Documented Start Date Documented Resolved Date Code (s) Chest pain ICD10: R07.9 Chest pain ICD9: 786.50 Chest pain SNOMED: 13485935 Chest pain Plan of Care Plan Of Care Visit/Account #[id number] (June 27, 2015 6:41pm - June 27, 2015 9:10pm) Patient Instructions Take lortab 1-2 pills every 6 hours as needed for pain. Do not drive or work while on it as it can make you lightheaded and dizzy and increases the risk of falls. It can lead to constipation, if you start having decreased bowel movements, take Miralax 1 capful daily Return to the emergency department for any concern. Follow up with your primary care physician as needed. Vital Signs Vital Signs Visit/Account #[id number] (June 27, 2015 6:41pm - June 27, 2015 9:10pm) Sign First Result Last Result Code(s) Temperature in Fahrenheit Temperature (Fahrenheit): 98 [degF] On June 27, 2015 6:39pm Temperature (Fahrenheit): 98 [degF] On June 27, 2015 9:10pm 8310-5 Body Temperature Weight in Kilograms Weight (Kilograms): 62.7 kg On June 27, 2015 6:39pm 3141-9 Weight Measured 82771-0 Body weight measured in kilograms Functional Status Functional and Cognitive Status No Functional Status Data Medications Inpatient/Ordered Medications - Medications administered during hospital visit Visit/Account #[id number] (June 27, 2015 6:41pm - June 27, 2015 9:10pm) Medication Route Sig/Schedule Precondition/Indication Comments/Instructions Codes ASPIRIN 324 MG TAB Dose: 324 MG ORAL NOW Special Dose Instructions: CHEW Aspirin 81 MG Chewable Tablet (RxNorm): 229817 (ASPIRIN) NDC: [id number] SUBLIMAZE INJ(FentaNYL CITRATE) 100 MCG/2 ML INJECTION Dose: 2 ML INTRAVEN NOW Label Comments: GIVE BY SLOW PUSH OVER 2-5 MIN MAY INCREASE FALL RISK Fentanyl 0.05 MG/ML Injectable Solution (RxNorm): 864675 SUBLIMAZE INJ (FentaNYL CITRATE) NDC: [id number] ZOFRAN INJ(ONDANSETRON HCL) 4 MG/2 ML INJECTION Dose: 2 ML INTRAVEN NOW Label Comments: SLOW IV PUSH MAY INCREASE FALL RISK Ondansetron 2 MG/ML Injectable Solution (RxNorm): 214411 ZOFRAN INJ (ONDANSETRON HCL) NDC: [id number] KETALAR INJ(KETAMINE HCL IN 0.9 % NACL) 50 MG/5 ML INJECTION Dose: 1 ML INTRAVEN NOW Ketamine 10 MG/ML Injectable Solution (RxNorm): 729718 KETALAR INJ (KETAMINE HCL IN 0.9 % NACL) [facility]: [id number] History Of Encounters Encounters Visit/Account #[id number] (June 27, 2015 6:41pm - June 27, 2015 9:10pm) Account Status Physican Of Record Reason For Visit Visit Diagnosis Start Date/Time Stop Date/Time ER JARETT RUSH MD CP Not Available Jun 27, 2015 6:41pm Jun 27, 2015 9:10pm History of Procedures Procedure List No procedures recorded. Discharge Instructions Discharge Instructions Visit/Account #[id number] (June 27, 2015 6:41pm - June 27, 2015 9:10pm) DISCHARGE INSTRUCTIONS Physician Documentation Social History Social History No Social History Data. Immunizations Immunizations Patient Unit Number: [id number] Immunizations No immunizations recorded.
--- OUTSIDE RECORDS SUMMARY | 2018-02-04 14:43 | XMS REPORT | Continuity Of Care Document ---
Author Author [facility] Organization [facility] Address [address] [place] [address] Phone Care Team Providers Care Police Superintendent Name Role Phone VICTOR MANUEL ROMERO, JARETT M Unavailable MESSI ROMERO, RICHARD Castro PP SHANTEL ROMERO, NUHA Bond CP RITA ROMERO, SABINA Ferro AT SAMANTHA ROMERO, KENAN Castro CP Results Lab Results Visit/Account #[id number] (August 29, 2014 2:00pm - September 03, 2014 12:18pm) Test Result Date/Time 96800-5: HEMOGLOBIN AND HEMATOCRIT HEMOGLOBIN(13.5-17.5 G/DL) 5.2 G/DL August 29, 2014 4:54pm 7.5 G/DL August 29, 2014 8:02pm 8.5 G/DL August 30, 2014 8:45am 8.0 G/DL August 30, 2014 2:03pm 8.6 G/DL August 30, 2014 8:16pm 7.9 G/DL August 31, 2014 2:30am 8.1 G/DL August 31, 2014 8:02am 8.2 G/DL August 31, 2014 1:56pm HEMATOCRIT(41.0-53.0 %) 17.4 % August 29, 2014 4:54pm 23.8 % August 29, 2014 8:02pm 26.5 % August 30, 2014 8:45am 24.7 % August 30, 2014 2:03pm 26.9 % August 30, 2014 8:16pm 24.5 % August 31, 2014 2:30am 24.9 % August 31, 2014 8:02am 25.8 % August 31, 2014 1:56pm 61101-8: COMPLETE BLOOD COUNT WITH DIFF WHITE BLOOD COUNT(4.0-11.0 10E3/UL) 7.2 10E3/UL August 29, 2014 2:15pm 5.2 10E3/UL August 30, 2014 2:22am RED BLOOD COUNT(4.50-5.90 10E6/UL) 2.48 10E6/UL August 29, 2014 2:15pm 3.01 10E6/UL August 30, 2014 2:22am HEMOGLOBIN(13.5-17.5 G/DL) 6.2 G/DL August 29, 2014 2:15pm 7.9 G/DL August 30, 2014 2:22am HEMATOCRIT(41.0-53.0 %) 20.8 % August 29, 2014 2:15pm 25.0 % August 30, 2014 2:22am MEAN CORPUSCULAR VOLUME(82.0-100.0 FL) 83.9 FL August 29, 2014 2:15pm 83.1 FL August 30, 2014 2:22am 24768-0: MEAN CORPUSCULAR HEMOGLOBIN(26.0-34.0 PG) 25.0 PG August 29, 2014 2:15pm 26.2 PG August 30, 2014 2:22am MEAN CORPUSCULAR HGB CONC(31.5-36.5 G/DL) 29.8 G/DL August 29, 2014 2:15pm 31.6 G/DL August 30, 2014 2:22am RED CELL DISTRIBUTION WIDTH(11.5-14.5 %) 17.8 % August 29, 2014 2:15pm 17.3 % August 30, 2014 2:22am 777-3: PLATELET COUNT(150-450 10E3/UL) 249 10E3/UL August 29, 2014 2:15pm 140 10E3/UL August 30, 2014 2:22am MEAN PLATELET VOLUME(8.2-12.4 FL) 9.0 FL August 29, 2014 2:15pm 9.0 FL August 30, 2014 2:22am 770-8: NEUTROPHILS % (AUTO)(40-70 %) 61 % August 29, 2014 2:15pm 59 % August 30, 2014 2:22am LYMPHOCYTES % (AUTO)(15-45 %) 30 % August 29, 2014 2:15pm 29 % August 30, 2014 2:22am 5905-5: MONOCYTES % (AUTO)(2-10 %) 8 % August 29, 2014 2:15pm 9 % August 30, 2014 2:22am 713-8: EOSINOPHILS % (AUTO)(0-6 %) 1 % August 29, 2014 2:15pm 3 % August 30, 2014 2:22am 706-2: BASOPHILS % (AUTO)(0-1 %) 0 % August 29, 2014 2:15pm 1 % August 30, 2014 2:22am 59884-3: IMMATURE GRANS % (AUTO)(0-0 %) 0 % August 29, 2014 2:15pm 0 % August 30, 2014 2:22am NUCLEATED RBCS (AUTO)(0-0 %) 0 % August 29, 2014 2:15pm 0 % August 30, 2014 2:22am 751-8: NEUTROPHILS # (AUTO)(2.5-7.5 10E3/UL) 4.3 10E3/UL August 29, 2014 2:15pm 3.0 10E3/UL August 30, 2014 2:22am 19476-0: LYMPHOCYTES # (AUTO)(1.0-4.0 10E3/UL) 2.2 10E3/UL August 29, 2014 2:15pm 1.5 10E3/UL August 30, 2014 2:22am 742-7: MONOCYTES # (AUTO)(0.2-0.8 10E3/UL) 0.6 10E3/UL August 29, 2014 2:15pm 0.5 10E3/UL August 30, 2014 2:22am 711-2: EOSINOPHILS # (AUTO)(0.0-0.4 10E3/UL) 0.0 10E3/UL August 29, 2014 2:15pm 0.1 10E3/UL August 30, 2014 2:22am 704-7: BASOPHILS # (AUTO)(0.0-0.2 10E3/UL) 0.0 10E3/UL August 29, 2014 2:15pm 0.0 10E3/UL August 30, 2014 2:22am IMMATURE GRANS # (AUTO)(0.0-0.0 10E3/UL) 0.0 10E3/UL August 29, 2014 2:15pm 0.0 10E3/UL August 30, 2014 2:22am DIFF TYPE AUTOMATED August 29, 2014 2:15pm AUTOMATED August 30, 2014 2:22am 98531-8: COMPLETE BLOOD COUNT WHITE BLOOD COUNT(4.0-11.0 10E3/UL) 9.4 10E3/UL September 01, 2014 5:53am RED BLOOD COUNT(4.50-5.90 10E6/UL) 3.22 10E6/UL September 01, 2014 5:53am HEMOGLOBIN(13.5-17.5 G/DL) 8.6 G/DL September 01, 2014 5:53am HEMATOCRIT(41.0-53.0 %) 26.6 % September 01, 2014 5:53am MEAN CORPUSCULAR VOLUME(82.0-100.0 FL) 82.6 FL September 01, 2014 5:53am 72725-2: MEAN CORPUSCULAR HEMOGLOBIN(26.0-34.0 PG) 26.7 PG September 01, 2014 5:53am MEAN CORPUSCULAR HGB CONC(31.5-36.5 G/DL) 32.3 G/DL September 01, 2014 5:53am RED CELL DISTRIBUTION WIDTH(11.5-14.5 %) 17.5 % September 01, 2014 5:53am 777-3: PLATELET COUNT(150-450 10E3/UL) 188 10E3/UL September 01, 2014 5:53am MEAN PLATELET VOLUME(8.2-12.4 FL) 9.1 FL September 01, 2014 5:53am NUCLEATED RBCS (AUTO)(0-0 %) 0 % September 01, 2014 5:53am HEMOGLOBIN HEMOGLOBIN(13.5-17.5 G/DL) 8.3 G/DL September 02, 2014 6:14am 8.4 G/DL September 03, 2014 6:55am 71271-9: PROTHROMBIN TIME WITH INR PROTHROMBIN TIME(12.1-14.0 SEC) 30.0 SEC August 29, 2014 2:15pm 21.5 SEC August 29, 2014 4:54pm 17.7 SEC August 29, 2014 8:02pm 16.4 SEC August 30, 2014 2:22am 01592-1: INR 2.81 Result Comments: INR reference interval applies to patients on anticoagulant therapy. Suggested INR therapeutic range for oral anticoagulant therapy: (Stabilized anticoagulated patients) Routine Therapy: 2.0 to 3.0 Recurrent Myocardial Infarction: 2.5 to 3.5 Mechanical Prosthetic Valves: 2.5 to 3.5 August 29, 2014 2:15pm 1.84 Result Comments: INR reference interval applies to patients on anticoagulant therapy. Suggested INR therapeutic range for oral anticoagulant therapy: (Stabilized anticoagulated patients) Routine Therapy: 2.0 to 3.0 Recurrent Myocardial Infarction: 2.5 to 3.5 Mechanical Prosthetic Valves: 2.5 to 3.5 August 29, 2014 4:54pm 1.44 Result Comments: INR reference interval applies to patients on anticoagulant therapy. Suggested INR therapeutic range for oral anticoagulant therapy: (Stabilized anticoagulated patients) Routine Therapy: 2.0 to 3.0 Recurrent Myocardial Infarction: 2.5 to 3.5 Mechanical Prosthetic Valves: 2.5 to 3.5 August 29, 2014 8:02pm 1.30 Result Comments: INR reference interval applies to patients on anticoagulant therapy. Suggested INR therapeutic range for oral anticoagulant therapy: (Stabilized anticoagulated patients) Routine Therapy: 2.0 to 3.0 Recurrent Myocardial Infarction: 2.5 to 3.5 Mechanical Prosthetic Valves: 2.5 to 3.5 August 30, 2014 2:22am PARTIAL THROMBOPLASTIN TIME PARTIAL THROMBOPLASTIN TIME(22.2-37.4 SEC) 38.7 SEC August 29, 2014 2:15pm UA WITH SCREEN FOR CULTURE 5778-6: COLOR,URINE YELLOW September 02, 2014 5:39pm 66886-9: CLARITY,URINE CLEAR September 02, 2014 5:39pm GLUCOSE, URINE(NEGATIVE MG/DL) NEGATIVE MG/DL September 02, 2014 5:39pm URINE BILIRUBIN(NEGATIVE) NEGATIVE September 02, 2014 5:39pm 65768-2: KETONES,URINE(NEGATIVE MG/DL) NEGATIVE MG/DL September 02, 2014 5:39pm 2965-2: URINE SPECIFIC GRAVITY(1.001-1.035) Less than or equal to 1.005 September 02, 2014 5:39pm 48225-5: URINE BLOOD(NEGATIVE) SMALL September 02, 2014 5:39pm 2756-5: URINE PH(5.0-9.0) 5.5 September 02, 2014 5:39pm URINE PROTEIN(Less than 20 MG/DL) NEGATIVE MG/DL September 02, 2014 5:39pm URINE UROBILINOGEN(0.2-1.0 MG/DL) 0.2 MG/DL September 02, 2014 5:39pm URINE NITRITE(NEGATIVE) NEGATIVE September 02, 2014 5:39pm 5799-2: LEUKOCYTE ESTERASE ,URINE(NEGATIVE) MODERATE September 02, 2014 5:39pm 630-4: URINE CULTURE TO FOLLOW September 02, 2014 5:39pm URINE MICROSCOPIC REQUIRED YES September 02, 2014 5:39pm URINE WBCS(/HPF) 21-50 /HPF September 02, 2014 5:39pm 52996-2: URINE RBCS(/HPF) 4-7 /HPF September 02, 2014 5:39pm 34461-4: URINE EPITHELIAL CELLS(/HPF) 0-3 /HPF September 02, 2014 5:39pm BACTERIA,URINE(/HPF) 3+ /HPF September 02, 2014 5:39pm URINE CRYSTALS(/HPF) NONE SEEN /HPF September 02, 2014 5:39pm URINE CASTS(/LPF) NONE SEEN /LPF September 02, 2014 5:39pm URINE COMMENTS NONE September 02, 2014 5:39pm 53440-4: COMPLETE METABOLIC PROFILE 09335-2: GLUCOSE(70-110 MG/DL) 112 MG/DL August 29, 2014 2:15pm 85 MG/DL August 30, 2014 2:22am BLOOD UREA NITROGEN(6-20 MG/DL) 43 MG/DL August 29, 2014 2:15pm 27 MG/DL August 30, 2014 2:22am 23710-4: CREATININE(0.50-1.20 MG/DL) 0.79 MG/DL August 29, 2014 2:15pm 0.79 MG/DL August 30, 2014 2:22am 92514-4: EST GLOMERULAR FILTRATION RATE(Greater than or equal to 60) Greater than or equal to 60 Result Comments: If the patient is of -[place] descent/extraction multiply the eGFR value by 1.212 to obtain the actual eGFR. >=60 mg/dL Normal 30-59 mg/dL Moderate Kidney Disease 15-29 mg/dL Severe Kidney Disease <15 mg/dL Kidney Failure August 29, 2014 2:15pm Greater than or equal to 60 Result Comments: If the patient is of -[place] descent/extraction multiply the eGFR value by 1.212 to obtain the actual eGFR. >=60 mg/dL Normal 30-59 mg/dL Moderate Kidney Disease 15-29 mg/dL Severe Kidney Disease <15 mg/dL Kidney Failure August 30, 2014 2:22am BUN CREATININE RATIO(10.0-20.0 RATIO) 54.0 RATIO August 29, 2014 2:15pm 34.0 RATIO August 30, 2014 2:22am 59013-6: SODIUM(135-145 MMOL/L) 140 MMOL/L August 29, 2014 2:15pm 143 MMOL/L August 30, 2014 2:22am 55686-3: POTASSIUM(3.6-5.0 MMOL/L) 4.0 MMOL/L August 29, 2014 2:15pm 3.6 MMOL/L August 30, 2014 2:22am 42087-1: CHLORIDE(101-111 MMOL/L) 116 MMOL/L August 29, 2014 2:15pm 118 MMOL/L August 30, 2014 2:22am 8-9: CO2(21-31 MMOL/L) 22.0 MMOL/L August 29, 2014 2:15pm 23.0 MMOL/L August 30, 2014 2:22am 89232-3: ANION GAP(8-18) 6 August 29, 2014 2:15pm 6 August 30, 2014 2:22am OSMO CALCULATED(270.0-290.0) 291.0 August 29, 2014 2:15pm 289.3 August 30, 2014 2:22am CALCIUM(8.5-10.5 MG/DL) 8.2 MG/DL August 29, 2014 2:15pm 8.0 MG/DL August 30, 2014 2:22am BILIRUBIN,TOTAL(0.1-1.2 MG/DL) 0.3 MG/DL August 29, 2014 2:15pm 1.0 MG/DL August 30, 2014 2:22am ALKALINE PHOSPHATASE(42-121 IU/L) 63 IU/L August 29, 2014 2:15pm 59 IU/L August 30, 2014 2:22am ASPARTATE AMINO TRANSFERASE(10-42 IU/L) 11 IU/L August 29, 2014 2:15pm 12 IU/L August 30, 2014 2:22am ALANINE AMINOTRANSFERASE(10-60 IU/L) 10 IU/L August 29, 2014 2:15pm 11 IU/L August 30, 2014 2:22am 58749-0: TOTAL PROTEIN(6.4-8.2 G/DL) 4.9 G/DL August 29, 2014 2:15pm 4.5 G/DL August 30, 2014 2:22am ALBUMIN(3.5-5.5 G/DL) 2.8 G/DL August 29, 2014 2:15pm 2.6 G/DL August 30, 2014 2:22am 2336-6: GLOBULIN(2.4-3.6) 2.1 August 29, 2014 2:15pm 1.9 August 30, 2014 2:22am ALBUMIN/GLOBULIN RATIO(0.9-1.8 RATIO) 1.3 RATIO August 29, 2014 2:15pm 1.4 RATIO August 30, 2014 2:22am BASIC METABOLIC PANEL 07921-1: GLUCOSE(70-110 MG/DL) 118 MG/DL September 01, 2014 5:53am BLOOD UREA NITROGEN(6-20 MG/DL) 11 MG/DL September 01, 2014 5:53am 05727-9: CREATININE(0.50-1.20 MG/DL) 0.88 MG/DL September 01, 2014 5:53am 16025-4: EST GLOMERULAR FILTRATION RATE(Greater than or equal to 60) Greater than or equal to 60 Result Comments: If the patient is of -[place] descent/extraction multiply the eGFR value by 1.212 to obtain the actual eGFR. >=60 mg/dL Normal 30-59 mg/dL Moderate Kidney Disease 15-29 mg/dL Severe Kidney Disease <15 mg/dL Kidney Failure September 01, 2014 5:53am BUN CREATININE RATIO(10.0-20.0 RATIO) 13.0 RATIO September 01, 2014 5:53am 82999-5: SODIUM(135-145 MMOL/L) 138 MMOL/L September 01, 2014 5:53am 06522-6: POTASSIUM(3.6-5.0 MMOL/L) 3.8 MMOL/L September 01, 2014 5:53am 16038-4: CHLORIDE(101-111 MMOL/L) 107 MMOL/L September 01, 2014 5:53am 2028-9: CO2(21-31 MMOL/L) 27.0 MMOL/L September 01, 2014 5:53am 29796-0: ANION GAP(8-18) 8 September 01, 2014 5:53am OSMO CALCULATED(270.0-290.0) 276.2 September 01, 2014 5:53am CALCIUM(8.5-10.5 MG/DL) 8.6 MG/DL September 01, 2014 5:53am 09778-5: CARDIAC TROPONIN I 42001-2: CARDIAC TROPONIN I(0.01-0.04 NG/ML) 0.01 NG/ML Result Comments: REFERENCE RANGES: NEGATIVE < 0.04 NG/ML POSSIBLE MYCARDIAL INVOLVEMENT >/=0.04 NG/ML INTERPRET TROPONIN I RESULT IN LIGHT OF THE TOTAL CLINICAL PRESENTATION INCLUDING CLINICAL HISTORY. ANY CONDITION RESULTING IN MYOCARDIAL INJURY CAN POTENTIALLY ELEVATE TROPONIN I LEVELS ABOVE EXPECTED NORMAL RANGES. NOTE NEW REFERENCE RANGE August 29, 2014 2:15pm Microbiology Results Visit/Account #[id number] (August 29, 2014 2:00pm - September 03, 2014 12:18pm) Procedure Result 630-4: URINE CULTURE 630-4: URINE CULTURE Result Instance On September 02, 2014 5:39pm Source: URINE Organism: [id number] (SNOMED_CT) GRAM NEGATIVE CHRISTOFER COLONY COUNT >100,000 TESTING TO FOLLOW ID AND SENSITIVITY TO FOLLOW 73239-1: MRSA SCREEN FOR INFEC CONTROL 92908-3: MRSA SCREEN FOR INFEC CONTROL Result Instance On August 29, 2014 4:00pm Source: NARE Special Result Comments: No growth Bloodbank Results Visit/Account #[id number] (August 29, 2014 2:00pm - September 03, 2014 12:18pm) Test Result ABO/RH 63152-8: BLOOD TYPE O POSITIVE on August 29, 2014 2:15pm ANTIBODY SCREEN ANTIBODY SCREEN NEGATIVE on August 29, 2014 2:15pm Allergies and Adverse Reactions Allergies and Adverse Reactions Patient Unit Number: [id number] Agent Type Reaction Severity Status METOCLOPRAMIDE HCL Drug Allergy Unknown Moderate Active KETOROLAC TROMETHAMINE Drug Allergy Unknown Unknown Active NSAIDS (NON-STEROIDAL ANTI-INFLAMMA Drug Adverse Reaction Unknown Moderate Active PROCHLORPERAZINE Drug Allergy Unknown Mild Active Problem List Problem List Visit/Account #[id number] (August 29, 2014 2:00pm - September 03, 2014 12:18pm) Acute Problems: Code/Condition Comments Documented Start Date Documented Resolved Date Code (s) CAD (coronary artery disease) ICD10: I25.10 Atherosclerosis of coronary artery ICD9: 414.00 Atherosclerosis of coronary artery SNOMED: 462818697 Atherosclerosis of coronary artery Upper GI hemorrhage ICD10: K92.2 Upper gastrointestinal hemorrhage ICD9: 578.9 Upper gastrointestinal hemorrhage SNOMED: 39002499 Upper gastrointestinal hemorrhage AVM (arteriovenous malformation) of duodenum, 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: 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 SNOMED: 064809199 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 Acute blood loss anemia ICD10: D62 Acute posthemorrhagic anemia ICD9: 285.1 Acute posthemorrhagic anemia SNOMED: 522404905 Acute posthemorrhagic anemia GI bleed ICD10: K92.2 Gastrointestinal hemorrhage ICD9: 578.9 Gastrointestinal hemorrhage SNOMED: 70784529 Gastrointestinal hemorrhage Hypotension August 29, 2014 ICD10: I95.9 Hypotension ICD9: 458.9 Hypotension SNOMED: 72307136 Hypotension Symptomatic anemia August 29, 2014 ICD10: D64.9 Secondary anemia ICD9: 285.9 Secondary anemia SNOMED: 989411868 Secondary anemia Anticoagulated on Coumadin August 29, 2014 ICD10: Z51.81 Anticoagulated on Coumadin ICD9: V58.83 Anticoagulated on Coumadin SNOMED: 50420834 Anticoagulated on Coumadin GI bleed ICD10: K92.2 Gastrointestinal hemorrhage ICD9: 578.9 Gastrointestinal hemorrhage SNOMED: 75209282 Gastrointestinal hemorrhage Symptomatic anemia ICD10: D64.9 Secondary anemia ICD9: 285.9 Secondary anemia SNOMED: 761515241 Secondary anemia Anticoagulated on Coumadin ICD10: Z51.81 Anticoagulated on Coumadin ICD9: V58.83 Anticoagulated on Coumadin SNOMED: 66746518 Anticoagulated on Coumadin Hypotension ICD10: I95.9 Hypotension ICD9: 458.9 Hypotension SNOMED: 62082058 Hypotension Plan of Care Plan Of Care No Plan Of Care Data. Vital Signs Vital Signs Visit/Account #[id number] (August 29, 2014 2:00pm - September 03, 2014 12:18pm) Sign First Result Last Result Code(s) Body Mass Index Body Mass Index (BMI): 24.0 kg/m2 On August 29, 2014 1:52pm 50678-5 BMI (body mass index) Body Mass Index as a Calculated Value 24.7 kg/m2 On August 29, 2014 1:52pm 33154-3 BMI (body mass index) Blood Pressure 149/ 51 mm[Hg] On August 29, 2014 4:14pm 125/ 58 mm[Hg] On September 03, 2014 9:41am 8480-6 BP Systolic Body Surface Area as a Calculated Value 2.09 m2 On August 29, 2014 1:52pm 3140-1 BSA (body surface area) Height (Feet/Inches) 6 [ft_us] 1 [in_us] On August 29, 2014 1:52pm Heart Rate/Pulse Pulse Rate (adult): 73 /min On August 29, 2014 4:14pm Pulse Rate (adult): 55 /min On September 03, 2014 9:41am 8867-4 Heart Rate 8893-0 Pulse rate Respiratory Rate Respiratory Rate: 12 /min On August 29, 2014 4:14pm Respiratory Rate: 20 /min On September 03, 2014 9:41am 9279-1 Respiratory rate Temperature in Fahrenheit Temperature (Fahrenheit): 98.1 [degF] On August 29, 2014 1:52pm Temperature (Fahrenheit): 97.8 [degF] On September 03, 2014 9:41am 8310-5 Body Temperature Weight in Kilograms Weight (Kilograms): 85 kg On August 29, 2014 1:52pm 3141-9 Weight Measured 72640-9 Body weight measured in kilograms Functional Status Functional and Cognitive Status No Functional Status Data Medications Home Medications - Medications that the patient was taking prior to arrival at the hospital Visit/Account #[id number] (August 29, 2014 2:00pm - September 03, 2014 12:18pm) Medication Route Sig/Schedule Precondition/Indication Comments/Instructions Codes CARAFATE(SUCRALFATE) 1 GM TABLET Dose: 1 G ORAL 4 TIMES DAILY Sucralfate 1000 MG Oral Tablet (RxNorm): 195630 CARAFATE (SUCRALFATE) NDC: 31579139621 FLONASE(FLUTICASONE PROPIONATE) 16 GM NASAL SPRAY Dose: 2 INH IN NASAL DAILY Rx Instructions: *in each nostril* 120 ACTUAT Fluticasone propionate 0.05 MG/ACTUAT Nasal Inhaler (RxNorm): 531660 FLONASE (FLUTICASONE PROPIONATE) NDC: 48862220299 Plavix(CLOPIDOGREL BISULFATE) 75 MG TAB Dose: 75 MG ORAL DAILY clopidogrel 75 MG Oral Tablet [Plavix] (RxNorm): 115241 Plavix (CLOPIDOGREL BISULFATE) NDC: 05361528156 DIOVAN(VALSARTAN) 320 MG TAB Dose: 320 MG ORAL DAILY valsartan 320 MG Oral Tablet [Diovan] (RxNorm): 785708 DIOVAN (VALSARTAN) NDC: 94903609433 Omeprazole(OMEPRAZOLE) 20 MG CAP Dose: 20 MG ORAL 60 MIN BEFORE BKFST Omeprazole 20 MG Enteric Coated Capsule (RxNorm): 267755 Omeprazole (OMEPRAZOLE) NDC: 00267833386 ESCITALOPRAM OXALATE(ESCITALOPRAM OXALATE) 20 MG TABLET Dose: 20 MG ORAL DAILY Escitalopram 20 MG Oral Tablet (RxNorm): 199069 ESCITALOPRAM OXALATE (ESCITALOPRAM OXALATE) NDC: 68113145031 ALBUTEROL SULF HFA(ALBUTEROL SULFATE) 8.5 GM PUFF Dose: 2 INH ORAL Q4H SHORTNESS OF BREATH/WHEEZING ALBUTEROL SULF HFA (ALBUTEROL SULFATE) NDC: 49171311996 SEROQUEL(QUEtiapine FUMARATE) 50 MG TABLET Dose: 50 MG ORAL AT BEDTIME quetiapine 50 MG Oral Tablet [Seroquel] (RxNorm): 728990 SEROQUEL (QUEtiapine FUMARATE) NDC: 33265154017 Geritol Complete Tablet(IRON/VITAMIN B COMP W-C) 1 EACH TABLET Dose: 1 TAB ORAL DAILY AT BKFST Geritol Complete Tablet (IRON/VITAMIN B COMP W-C) NDC: 92345784062 KLONOPIN(ClonAZEPAM) 0.5 MG TABLET Dose: 0.25 MG ORAL AT BEDTIME Clonazepam 0.5 MG Oral Tablet [Klonopin] (RxNorm): 345916 KLONOPIN (ClonAZEPAM) NDC: 67553602996 Trazodone Hcl(TraZODone HCL) 150 MG TABLET Dose: 300 MG ORAL AT BEDTIME Trazodone Hydrochloride 150 MG Oral Tablet (RxNorm): 320737 Trazodone Hcl (TraZODone HCL) NDC: 92772619037 Cymbalta(DULoxetine HCL) 30 MG CAP Dose: 30 MG ORAL DAILY duloxetine 30 MG Delayed Release Oral Capsule [Cymbalta] (RxNorm): 578711 Cymbalta (DULoxetine HCL) NDC: 14422231014 LOPRESSOR(METOPROLOL TARTRATE) 50 MG TABLET Dose: 50 MG ORAL TWICE A DAY Metoprolol Tartrate 50 MG Oral Tablet [Lopressor] (RxNorm): 155757 LOPRESSOR (METOPROLOL TARTRATE) NDC: 24983419338 Famotidine(FAMOTIDINE) 40 MG TAB Dose: 40 MG ORAL TWICE A DAY Famotidine (FAMOTIDINE) NDC: 68408828137 Gabapentin(GABAPENTIN) 100 MG CAP Dose: 100 MG ORAL 3 TIMES A DAY Gabapentin (GABAPENTIN) NDC: 10854999048 Lipitor(ATORVASTATIN) 20 MG TAB Dose: 20 MG ORAL AT BEDTIME atorvastatin 20 MG Oral Tablet [Lipitor] (RxNorm): 904383 Lipitor (ATORVASTATIN) NDC: 79391026838 Dilaudid(HYDROmorphone HCL) 2 MG TAB Dose: 2 MG ORAL EVERY 6 HOURS PAIN Hydromorphone Hydrochloride 2 MG Oral Tablet (RxNorm): 079152 Dilaudid (HYDROmorphone HCL) NDC: 88330001593 PERCOCET 10-325(OxyCODONE HCL/ACETAMINOPHEN) 1 EACH TABLET Dose: 1 TAB ORAL 4 TIMES DAILY PAIN Acetaminophen 325 MG / Oxycodone Hydrochloride 10 MG Oral Tablet [Percocet] ( RxNorm): 9037263 PERCOCET 10-325 (OxyCODONE HCL/ACETAMINOPHEN) NDC: 79049408332 COUMADIN(WARFARIN SODIUM) 4 MG TAB Dose: 4 MG ORAL DAILY Warfarin Sodium 4 MG Oral Tablet [Coumadin] (RxNorm): 032756 COUMADIN (WARFARIN SODIUM) NDC: 72362066295 COUMADIN(WARFARIN SODIUM) 1 MG TAB Dose: 0.5 TAB ORAL DAILY Warfarin Sodium 1 MG Oral Tablet [Coumadin] (RxNorm): 501172 COUMADIN (WARFARIN SODIUM) NDC: 49399524992 TYLENOL(ACETAMINOPHEN) 500 MG TAB Dose: 1000 MG ORAL EVERY 4 HOURS PAIN Rx Instructions: 500 - 1000 MG Acetaminophen 500 MG Oral Tablet [Mapap] (RxNorm): 358375 TYLENOL (ACETAMINOPHEN) NDC: 61758775542 COUMADIN(WARFARIN SODIUM) 4 MG TAB Dose: 4.5 MG ORAL DAILY@1800 Warfarin Sodium 4 MG Oral Tablet [Coumadin] (RxNorm): 496171 COUMADIN (WARFARIN SODIUM) NDC: 27824518704 ADVAIR DISKUS 50-100(SALMETEROL/FLUTICASONE) 14 DOSE PUFF Dose: 1 DOSE INHALED TWICE A DAY ADVAIR DISKUS 50-100 (SALMETEROL/FLUTICASONE) NDC: 68773431478 Lipitor(ATORVASTATIN) 20 MG TAB Dose: 20 MG ORAL AT BEDTIME atorvastatin 20 MG Oral Tablet [Lipitor] (RxNorm): 667616 Lipitor (ATORVASTATIN) NDC: 78317451179 DILAUDID(HYDROmorphone HCL) 2 MG TAB Dose: 2 MG ORAL EVERY 6 HOURS PAIN Hydromorphone Hydrochloride 2 MG Oral Tablet (RxNorm): 094384 DILAUDID (HYDROmorphone HCL) NDC: 82853752041 Inpatient/Ordered Medications - Medications administered during hospital visit Visit/Account #[id number] (August 29, 2014 2:00pm - September 03, 2014 12:18pm) Medication Route Sig/Schedule Precondition/Indication Comments/Instructions Codes IV Medication Additives: VITAMIN K INJ(PHYTONADIONE) 10 MG/ML INJECTION Dose: 5 MG Carriers: SODIUM CHLORIDE 50 ML INJECTION Dose: 50 ML INTRAVEN NOW (Rate: 202 MLS/HR Duration: 15 MIN) Rx Order Comments: Order placed as verified: Dose Warnings differ from short order cook Additives: Vitamin K 1 10 MG/ML Injectable Solution (RxNorm): 234482 VITAMIN K INJ (PHYTONADIONE) NDC: 25231115506 Carriers: Sodium Chloride 0.154 MEQ/ML Injectable Solution (RxNorm): 440431 (SODIUM CHLORIDE) NDC: 80709722452 IV Medication Additives: NexIUM INJ(ESOMEPRAZOLE MAGNESIUM) 40 MG INJECTION Dose: 80 MG Carriers: SODIUM CHLORIDE 100 ML INJECTION Dose: 100 ML INTRAVEN NOW (Rate: 200 MLS/HR Duration: 30 MIN) Label Comments: BOLUS DO NOT REFRIGERATE Additives: Esomeprazole 8 MG/ML Injectable Solution [Nexium] (RxNorm): 864672 NexIUM INJ (ESOMEPRAZOLE MAGNESIUM) NDC: 41884265394 Carriers: Sodium Chloride 0.154 MEQ/ML Injectable Solution (RxNorm): 030826 (SODIUM CHLORIDE) NDC: 47138408170 DILAUDID(HYDROmorphone HCL) 2 MG/ML INJECTION Dose: 0.5 ML INTRAVEN NOW Rx Order Comments: Order placed as verified: Dose Warnings differ from short order cook Label Comments: MAY INCREASE FALL RISK 1 ML Hydromorphone Hydrochloride 2 MG/ML Prefilled Syringe (RxNorm): 220289 DILAUDID (HYDROmorphone HCL) NDC: [id number] SUBLIMAZE INJ(FentaNYL CITRATE) 100 MCG/2 ML INJECTION Dose: 100 MCG Route .STK-MED Fentanyl 0.05 MG/ML Injectable Solution (RxNorm): 098675 SUBLIMAZE INJ (FentaNYL CITRATE) NDC: 35764225216 VERSED INJ(MIDAZOLAM HCL) 5 MG/5 ML INJECTION Dose: 5 MG Route .STK-MED Midazolam 1 MG/ML Injectable Solution (RxNorm): 680866 VERSED INJ (MIDAZOLAM HCL) NDC: 89641218281 LIPITOR(ATORVASTATIN) 20 MG TAB Dose: 20 MG ORAL AT BEDTIME Label Comments: TERATOGENIC. WOMEN SHOULD NOT HANDLE OR CRUSH. atorvastatin 20 MG Oral Tablet [Lipitor] (RxNorm): 541397 LIPITOR (ATORVASTATIN) NDC: 11734841026 CYMBALTA(DULoxetine HCL) 30 MG CAP Dose: 30 MG ORAL DAILY Label Comments: MAY INCREASE FALL RISK duloxetine 30 MG Delayed Release Oral Capsule (RxNorm): 495721 CYMBALTA (DULoxetine HCL) NDC: 86219503134 LEXAPRO(ESCITALOPRAM OXALATE) 20 MG TAB Dose: 20 MG ORAL DAILY Label Comments: MAY INCREASE FALL RISK Escitalopram 20 MG Oral Tablet [Lexapro] (RxNorm): 153230 LEXAPRO (ESCITALOPRAM OXALATE) NDC: 22824060310 NEURONTIN(GABAPENTIN) 100 MG CAP Dose: 100 MG ORAL 3 TIMES A DAY Label Comments: MAY INCREASE FALL RISK gabapentin 100 MG Oral Capsule (RxNorm): 495032 NEURONTIN (GABAPENTIN) NDC: 34561386994 LOPRESSOR(METOPROLOL TARTRATE) 50 MG TAB Dose: 50 MG ORAL TWICE A DAY Label Comments: MAY INCREASE FALL RISK Metoprolol Tartrate 50 MG Oral Tablet [Lopressor] (RxNorm): 759411 LOPRESSOR (METOPROLOL TARTRATE) NDC: 73883582793 PERCOCET 10/325 MG(OxyCODONE/ACETAMINOPHEN) 1 TAB TAB Dose: 1 TAB ORAL 4 TIMES DAILY PRN Reason: PAIN Label Comments: MAX REC DOSE ACETAMINOPHEN: 4000MG/24HRS MAY INCREASE FALL RISK Acetaminophen 325 MG / Oxycodone Hydrochloride 10 MG Oral Tablet (RxNorm): 7396285 PERCOCET 10/325 MG (OxyCODONE/ACETAMINOPHEN) NDC: 91103837756 SYMBICORT 80(BUDESONIDE/FORMOTEROL) 60 PUFF/6.9 GM INHALER Dose: 1 GM INHALED TWICE DAILY SYMBICORT 80 (BUDESONIDE/FORMOTEROL) NDC: 05425596241 DESYREL(TraZODone HCL) 150 MG TAB Dose: 300 MG ORAL AT BEDTIME Label Comments: MAY INCREASE FALL RISK Trazodone Hydrochloride 150 MG Oral Tablet (RxNorm): 160231 DESYREL (TraZODone HCL) NDC: 81293120339 IV Medication Carriers: NORMAL SALINE(SODIUM CHLORIDE) 1000 ML INJECTION Dose: 1000 ML INTRAVEN .[id number] (Rate: 70 MLS/HR Duration: 14 HR 18 MIN) Carriers: Sodium Chloride 0.154 MEQ/ML Injectable Solution (RxNorm): 462256 NORMAL SALINE (SODIUM CHLORIDE) NDC: 96150924389 IV Medication Additives: NexIUM INJ(ESOMEPRAZOLE MAGNESIUM) 40 MG INJECTION Dose: 80 MG Carriers: SODIUM CHLORIDE 100 ML INJECTION Dose: 100 ML INTRAVEN Q10H (Rate: 10 MLS/HR Duration: 10 HR) Label Comments: Conc: 0.8 mg/mL Additives: Esomeprazole 8 MG/ML Injectable Solution [Nexium] (RxNorm): 849902 NexIUM INJ (ESOMEPRAZOLE MAGNESIUM) NDC: 88159605023 Carriers: Sodium Chloride 0.154 MEQ/ML Injectable Solution (RxNorm): 645119 (SODIUM CHLORIDE) NDC: 66185880913 DILAUDID(HYDROmorphone HCL) 2 MG/ML INJECTION Dose: 0 ML INTRAVEN Q4H PRN Reason: SEVERE PAIN Label Comments: MAY INCREASE FALL RISK Special Dose Instructions: 1-2 MG 1 ML Hydromorphone Hydrochloride 2 MG/ML Prefilled Syringe (RxNorm): 772402 DILAUDID (HYDROmorphone HCL) NDC: 53971110296 VERSED INJ(MIDAZOLAM HCL) 5 MG/5 ML INJECTION Dose: 5 MG Route .[facility] 1 MG/ML Injectable Solution (RxNorm): 738242 VERSED INJ (MIDAZOLAM HCL) NDC: 62198488547 IV Medication Additives: VITAMIN K INJ(PHYTONADIONE) 10 MG/ML INJECTION Dose: 10 MG Carriers: SODIUM CHLORIDE 50 ML INJECTION Dose: 50 ML INTRAVEN NOW (Rate: 204 MLS/HR Duration: 15 MIN) Additives: Vitamin K 1 10 MG/ML Injectable Solution (RxNorm): 995675 VITAMIN K INJ (PHYTONADIONE) NDC: 83755109830 Carriers: Sodium Chloride 0.154 MEQ/ML Injectable Solution (RxNorm): 872707 (SODIUM CHLORIDE) NDC: 22819522949 NICOTROL INHALER(NICOTINE) 1 UNIT/10 MG INHALER Dose: 10 MG INHALED NEEDED PRN Reason: SMOKING CESSATION Label Comments: SEND 1 MOUTH PIECE PLUS 30 CARTRIDGES PLUS PATIENT INSTRUCTIONS. (EACH 10 MG CARTRIDGE DELIVERS 4 MG NICOTINE) 168 ACTUAT Nicotine 4 MG/ACTUAT Metered Dose Inhaler [Nicotrol Inhaler] ( RxNorm): 3142283 NICOTROL INHALER (NICOTINE) NDC: 63413861215 PROTONIX(PANTOPRAZOLE SOD) 40 MG TAB Dose: 40 MG ORAL 60 MIN BEFORE BKFST pantoprazole 40 MG Delayed Release Oral Tablet [Protonix] (RxNorm): 990440 PROTONIX (PANTOPRAZOLE SOD) NDC: 46907382387 DULCOLAX(BISACODYL) 10 MG SUPPOSITORY Dose: 10 MG RECTALLY ONE TIME ORDER Bisacodyl 10 MG Rectal Suppository [Bisac-Evac] (RxNorm): 796205 DULCOLAX (BISACODYL) NDC: 61482082925 DULCOLAX(BISACODYL) 10 MG SUPPOSITORY Dose: 10 MG RECTALLY NOW Bisacodyl 10 MG Rectal Suppository [Bisac-Evac] (RxNorm): 457569 DULCOLAX (BISACODYL) NDC: 87330751549 LEVAQUIN(LEVOFLOXACIN) 250 MG TAB Dose: 250 MG ORAL DAILY@10 Label Comments: Take 2 hrs before or after antacids, sucralfate, metal cations(iron), or multi-vitamins Levofloxacin 250 MG Oral Tablet [Levaquin] (RxNorm): 465437 LEVAQUIN (LEVOFLOXACIN) NDC: 72581977020 Discharge Medications - Medications that patient should continue to take. Review with physician Visit/Account #[id number] (August 29, 2014 2:00pm - September 03, 2014 12:18pm) Medication Route Sig/Schedule Precondition/Indication Comments/Instructions Codes CARAFATE(SUCRALFATE) 1 GM TABLET Dose: 1 G ORAL 4 TIMES DAILY Sucralfate 1000 MG Oral Tablet (RxNorm): 927763 CARAFATE (SUCRALFATE) NDC: 42949931506 FLONASE(FLUTICASONE PROPIONATE) 16 GM NASAL SPRAY Dose: 2 INH IN NASAL DAILY Rx Instructions: *in each nostril* 120 ACTUAT Fluticasone propionate 0.05 MG/ACTUAT Nasal Inhaler (RxNorm): 458995 FLONASE (FLUTICASONE PROPIONATE) NDC: 57785174716 DIOVAN(VALSARTAN) 320 MG TAB Dose: 320 MG ORAL DAILY valsartan 320 MG Oral Tablet [Diovan] (RxNorm): 808410 DIOVAN (VALSARTAN) NDC: 27800770882 ESCITALOPRAM OXALATE(ESCITALOPRAM OXALATE) 20 MG TABLET Dose: 20 MG ORAL DAILY Escitalopram 20 MG Oral Tablet (RxNorm): 603316 ESCITALOPRAM OXALATE (ESCITALOPRAM OXALATE) NDC: 94446054056 ALBUTEROL SULF HFA(ALBUTEROL SULFATE) 8.5 GM PUFF Dose: 2 INH ORAL Q4H SHORTNESS OF BREATH/WHEEZING ALBUTEROL SULF HFA (ALBUTEROL SULFATE) NDC: 45096944623 Geritol Complete Tablet(IRON/VITAMIN B COMP W-C) 1 EACH TABLET Dose: 1 [facility] Complete Tablet (IRON/VITAMIN B COMP W-C) NDC: 11696495095 Trazodone Hcl(TraZODone HCL) 150 MG TABLET Dose: 300 MG ORAL AT BEDTIME Trazodone Hydrochloride 150 MG Oral Tablet (RxNorm): 560875 Trazodone Hcl (TraZODone HCL) NDC: 18807932615 Cymbalta(DULoxetine HCL) 30 MG CAP Dose: 30 MG ORAL DAILY duloxetine 30 MG Delayed Release Oral Capsule [Cymbalta] (RxNorm): 642221 Cymbalta (DULoxetine HCL) NDC: 84405520931 LOPRESSOR(METOPROLOL TARTRATE) 50 MG TABLET Dose: 50 MG ORAL TWICE A DAY Metoprolol Tartrate 50 MG Oral Tablet [Lopressor] (RxNorm): 309322 LOPRESSOR (METOPROLOL TARTRATE) NDC: 89309145976 Gabapentin(GABAPENTIN) 100 MG CAP Dose: 100 MG ORAL 3 TIMES A DAY Gabapentin (GABAPENTIN) NDC: 23086587003 PERCOCET 10-325(OxyCODONE HCL/ACETAMINOPHEN) 1 EACH TABLET Dose: 1 TAB ORAL 4 TIMES DAILY PAIN Acetaminophen 325 MG / Oxycodone Hydrochloride 10 MG Oral Tablet [Percocet] ( RxNorm): 8849738 PERCOCET 10-325 (OxyCODONE HCL/ACETAMINOPHEN) NDC: 34592530969 TYLENOL(ACETAMINOPHEN) 500 MG TAB Dose: 1000 MG ORAL EVERY 4 HOURS PAIN Rx Instructions: 500 - 1000 MG Acetaminophen 500 MG Oral Tablet [Mapap] (RxNorm): 024517 TYLENOL (ACETAMINOPHEN) NDC: 84236645417 ADVAIR DISKUS 50-100(SALMETEROL/FLUTICASONE) 14 DOSE PUFF Dose: 1 DOSE INHALED TWICE A DAY ADVAIR DISKUS 50-100 (SALMETEROL/FLUTICASONE) NDC: 95657590087 Lipitor(ATORVASTATIN) 20 MG TAB Dose: 20 MG ORAL AT BEDTIME atorvastatin 20 MG Oral Tablet [Lipitor] (RxNorm): 315951 Lipitor (ATORVASTATIN) NDC: 18417834722 DILAUDID(HYDROmorphone HCL) 2 MG TAB Dose: 2 MG ORAL EVERY 6 HOURS PAIN Hydromorphone Hydrochloride 2 MG Oral Tablet (RxNorm): 467795 DILAUDID (HYDROmorphone HCL) NDC: 34001246443 LEVAQUIN(LEVOFLOXACIN) 250 MG TAB Dose: 250 MG ORAL DAILY@10 Levofloxacin 250 MG Oral Tablet [Levaquin] (RxNorm): 891390 LEVAQUIN (LEVOFLOXACIN) NDC: 70128859680 PROTONIX(PANTOPRAZOLE) 40 MG TAB Dose: 40 MG ORAL 60 MIN BEFORE BKFST pantoprazole 40 MG Delayed Release Oral Tablet [Protonix] (RxNorm): 113955 PROTONIX (PANTOPRAZOLE) [facility]: [id number] History Of Encounters Encounters Visit/Account #[id number] (August 29, 2014 2:00pm - September 03, 2014 12:18pm) Account Status Physican Of Record Reason For Visit Visit Diagnosis Start Date/Time Stop Date/Time ER KENAN SINGH MD ANTICOAGULATED ON COUMADIN,GI BLEED,HYPOTENSION Not Available August 29, 2014 2:00pm August 29, 2014 2:14pm IN SABINA SALINAS MD ANTICOAGULATED ON COUMADIN,GI BLEED,HYPOTENSION Not Available August 29, 2014 2:14pm September 03, 2014 12:18pm History of Procedures Procedure List No procedures recorded. Discharge Instructions Discharge Instructions Visit/Account #[id number] (August 29, 2014 2:00pm - September 03, 2014 12:18pm) DISCHARGE INSTRUCTIONS Physician Documentation PROVIDER INSTRUCTIONS Discharge Diet As Tolerated Other Discharge Instructions no plavix for 1 week, no coumadin for 1 month General Information: If you have any questions or concerns regarding the tests that you had done at the hospital or if you have any results that are pending, please contact your provider. If no follow-up appointment has been scheduled, please call your primary care physician for an appointment on the next . If you are expecting a follow-up phone call by a [facility] staff member, please have your medications and discharge instructions ready to review during the phone call. This phone call will occur 2 to 4 days after discharge. Discharge Diet As Tolerated Other Discharge Instructions no plavix for 1 week, no coumadin for 1 month REASON TO CALL PROVIDER Notify Physician if: You have the following: - temperature greater than 101.5 degrees Fahrenheit - uncontrolled pain - persistent nausea/vomiting - any questions or concerns Social History Social History No Social History Data. Immunizations Immunizations Patient Unit Number: [id number] Immunizations No immunizations recorded.
--- OUTSIDE RECORDS SUMMARY | 2018-02-04 14:43 | XMS REPORT | Continuity Of Care Document ---
Author Author [facility] Organization [facility] Address [address] [place] [address] Phone Care Team Providers Care Manager Winter Name Role Phone MESSI ROMERO, RICHARD Castro PP LUIS ROMERO, WEI Martinez CP NE ROMERO, FALGUNI Priest CP [phone] JACK ROMERO, JARETT Bond AT [phone] Results Lab Results Visit/Account #[id number] (July 09, 2014 9:45pm - July 21, 2014 3:07pm) Test Result Date/Time 89319-9: HEMOGLOBIN AND HEMATOCRIT HEMOGLOBIN(13.5-17.5 G/DL) 7.2 G/DL July 17, 2014 5:15pm 9.9 G/DL July 19, 2014 6:25am HEMATOCRIT(41.0-53.0 %) 24.3 % July 17, 2014 5:15pm 32.3 % July 19, 2014 6:25am 32293-5: COMPLETE BLOOD COUNT WITH DIFF WHITE BLOOD COUNT(4.0-11.0 10E3/UL) 6.2 10E3/UL July 09, 2014 11:00pm 5.2 10E3/UL July 12, 2014 7:36am 5.2 10E3/UL July 13, 2014 7:39am 5.1 10E3/UL July 14, 2014 5:49am RED BLOOD COUNT(4.50-5.90 10E6/UL) 4.11 10E6/UL July 09, 2014 11:00pm 3.32 10E6/UL July 12, 2014 7:36am 3.38 10E6/UL July 13, 2014 7:39am 3.91 10E6/UL July 14, 2014 5:49am HEMOGLOBIN(13.5-17.5 G/DL) 10.6 G/DL July 09, 2014 11:00pm 8.4 G/DL July 12, 2014 7:36am 8.6 G/DL July 13, 2014 7:39am 10.0 G/DL July 14, 2014 5:49am HEMATOCRIT(41.0-53.0 %) 34.8 % July 09, 2014 11:00pm 28.2 % July 12, 2014 7:36am 28.8 % July 13, 2014 7:39am 31.9 % July 14, 2014 5:49am MEAN CORPUSCULAR VOLUME(82.0-100.0 FL) 84.7 FL July 09, 2014 11:00pm 84.9 FL July 12, 2014 7:36am 85.2 FL July 13, 2014 7:39am 81.6 FL July 14, 2014 5:49am 97244-3: MEAN CORPUSCULAR HEMOGLOBIN(26.0-34.0 PG) 25.8 PG July 09, 2014 11:00pm 25.3 PG July 12, 2014 7:36am 25.4 PG July 13, 2014 7:39am 25.6 PG July 14, 2014 5:49am MEAN CORPUSCULAR HGB CONC(31.5-36.5 G/DL) 30.5 G/DL July 09, 2014 11:00pm 29.8 G/DL July 12, 2014 7:36am 29.9 G/DL July 13, 2014 7:39am 31.3 G/DL July 14, 2014 5:49am RED CELL DISTRIBUTION WIDTH(11.5-14.5 %) 15.4 % July 09, 2014 11:00pm 15.7 % July 12, 2014 7:36am 15.8 % July 13, 2014 7:39am 15.9 % July 14, 2014 5:49am 777-3: PLATELET COUNT(150-450 10E3/UL) 270 10E3/UL July 09, 2014 11:00pm 173 10E3/UL July 12, 2014 7:36am 190 10E3/UL July 13, 2014 7:39am 208 10E3/UL July 14, 2014 5:49am MEAN PLATELET VOLUME(8.2-12.4 FL) 9.8 FL July 09, 2014 11:00pm 9.8 FL July 12, 2014 7:36am 9.9 FL July 13, 2014 7:39am 10.2 FL July 14, 2014 5:49am 770-8: NEUTROPHILS % (AUTO)(40-70 %) 64 % July 09, 2014 11:00pm 62 % July 12, 2014 7:36am 66 % July 13, 2014 7:39am 58 % July 14, 2014 5:49am LYMPHOCYTES % (AUTO)(15-45 %) 26 % July 09, 2014 11:00pm 21 % July 12, 2014 7:36am 17 % July 13, 2014 7:39am 24 % July 14, 2014 5:49am 5905-5: MONOCYTES % (AUTO)(2-10 %) 7 % July 09, 2014 11:00pm 13 % July 12, 2014 7:36am 14 % July 13, 2014 7:39am 15 % July 14, 2014 5:49am 713-8: EOSINOPHILS % (AUTO)(0-6 %) 1 % July 09, 2014 11:00pm 3 % July 12, 2014 7:36am 2 % July 13, 2014 7:39am 2 % July 14, 2014 5:49am 706-2: BASOPHILS % (AUTO)(0-1 %) 1 % July 09, 2014 11:00pm 1 % July 12, 2014 7:36am 0 % July 13, 2014 7:39am 1 % July 14, 2014 5:49am 63352-3: IMMATURE GRANS % (AUTO)(0-0 %) 1 % July 09, 2014 11:00pm 1 % July 12, 2014 7:36am 1 % July 13, 2014 7:39am 1 % July 14, 2014 5:49am NUCLEATED RBCS (AUTO)(0-0 %) 0 % July 09, 2014 11:00pm 0 % July 12, 2014 7:36am 0 % July 13, 2014 7:39am 0 % July 14, 2014 5:49am 751-8: NEUTROPHILS # (AUTO)(2.5-7.5 10E3/UL) 4.0 10E3/UL July 09, 2014 11:00pm 3.2 10E3/UL July 12, 2014 7:36am 3.5 10E3/UL July 13, 2014 7:39am 3.0 10E3/UL July 14, 2014 5:49am 49808-2: LYMPHOCYTES # (AUTO)(1.0-4.0 10E3/UL) 1.6 10E3/UL July 09, 2014 11:00pm 1.1 10E3/UL July 12, 2014 7:36am 0.9 10E3/UL July 13, 2014 7:39am 1.2 10E3/UL July 14, 2014 5:49am 742-7: MONOCYTES # (AUTO)(0.2-0.8 10E3/UL) 0.5 10E3/UL July 09, 2014 11:00pm 0.7 10E3/UL July 12, 2014 7:36am 0.7 10E3/UL July 13, 2014 7:39am 0.8 10E3/UL July 14, 2014 5:49am 711-2: EOSINOPHILS # (AUTO)(0.0-0.4 10E3/UL) 0.1 10E3/UL July 09, 2014 11:00pm 0.1 10E3/UL July 12, 2014 7:36am 0.1 10E3/UL July 13, 2014 7:39am 0.1 10E3/UL July 14, 2014 5:49am 704-7: BASOPHILS # (AUTO)(0.0-0.2 10E3/UL) 0.0 10E3/UL July 09, 2014 11:00pm 0.0 10E3/UL July 12, 2014 7:36am 0.0 10E3/UL July 13, 2014 7:39am 0.0 10E3/UL July 14, 2014 5:49am IMMATURE GRANS # (AUTO)(0.0-0.0 10E3/UL) 0.0 10E3/UL July 09, 2014 11:00pm 0.0 10E3/UL July 12, 2014 7:36am 0.0 10E3/UL July 13, 2014 7:39am 0.0 10E3/UL July 14, 2014 5:49am DIFF TYPE AUTOMATED July 09, 2014 11:00pm AUTOMATED July 12, 2014 7:36am AUTOMATED July 13, 2014 7:39am AUTOMATED July 14, 2014 5:49am 41708-2: COMPLETE BLOOD COUNT WHITE BLOOD COUNT(4.0-11.0 10E3/UL) 8.4 10E3/UL July 10, 2014 6:15am 4.6 10E3/UL July 15, 2014 8:06am 5.8 10E3/UL July 17, 2014 6:25am 6.2 10E3/UL July 18, 2014 7:06am 5.3 10E3/UL July 20, 2014 9:04am RED BLOOD COUNT(4.50-5.90 10E6/UL) 3.69 10E6/UL July 10, 2014 6:15am 3.66 10E6/UL July 15, 2014 8:06am 3.15 10E6/UL July 17, 2014 6:25am 3.90 10E6/UL July 18, 2014 7:06am 3.92 10E6/UL July 20, 2014 9:04am HEMOGLOBIN(13.5-17.5 G/DL) 9.4 G/DL July 10, 2014 6:15am 9.2 G/DL July 15, 2014 8:06am 7.9 G/DL July 17, 2014 6:25am 10.1 G/DL July 18, 2014 7:06am 10.2 G/DL July 20, 2014 9:04am HEMATOCRIT(41.0-53.0 %) 31.3 % July 10, 2014 6:15am 30.9 % July 15, 2014 8:06am 26.9 % July 17, 2014 6:25am 33.0 % July 18, 2014 7:06am 33.0 % July 20, 2014 9:04am MEAN CORPUSCULAR VOLUME(82.0-100.0 FL) 84.8 FL July 10, 2014 6:15am 84.4 FL July 15, 2014 8:06am 85.4 FL July 17, 2014 6:25am 84.6 FL July 18, 2014 7:06am 84.2 FL July 20, 2014 9:04am 54020-6: MEAN CORPUSCULAR HEMOGLOBIN(26.0-34.0 PG) 25.5 PG July 10, 2014 6:15am 25.1 PG July 15, 2014 8:06am 25.1 PG July 17, 2014 6:25am 25.9 PG July 18, 2014 7:06am 26.0 PG July 20, 2014 9:04am MEAN CORPUSCULAR HGB CONC(31.5-36.5 G/DL) 30.0 G/DL July 10, 2014 6:15am 29.8 G/DL July 15, 2014 8:06am 29.4 G/DL July 17, 2014 6:25am 30.6 G/DL July 18, 2014 7:06am 30.9 G/DL July 20, 2014 9:04am RED CELL DISTRIBUTION WIDTH(11.5-14.5 %) 15.6 % July 10, 2014 6:15am 15.9 % July 15, 2014 8:06am 16.0 % July 17, 2014 6:25am 15.7 % July 18, 2014 7:06am 15.8 % July 20, 2014 9:04am 777-3: PLATELET COUNT(150-450 10E3/UL) 216 10E3/UL July 10, 2014 6:15am 223 10E3/UL July 15, 2014 8:06am 248 10E3/UL July 17, 2014 6:25am 251 10E3/UL July 18, 2014 7:06am 322 10E3/UL July 20, 2014 9:04am MEAN PLATELET VOLUME(8.2-12.4 FL) 9.1 FL July 10, 2014 6:15am 9.2 FL July 15, 2014 8:06am 9.6 FL July 17, 2014 6:25am 9.6 FL July 18, 2014 7:06am 8.9 FL July 20, 2014 9:04am NUCLEATED RBCS (AUTO)(0-0 %) 0 % July 10, 2014 6:15am 0 % July 15, 2014 8:06am 0 % July 17, 2014 6:25am 0 % July 18, 2014 7:06am 0 % July 20, 2014 9:04am RETIC PANEL 56557-4: RETICULOCYTE %(0.2-2.0 %) 1.5 % July 15, 2014 8:06am ABSOLUTE RETICS #(26-95 10E9/L) 53 10E9/L July 15, 2014 8:06am 58440-0: IMMATURE RETIC FRACTION(2.3-13.4 %) 25.3 % July 15, 2014 8:06am 69968-7: PROTHROMBIN TIME WITH INR PROTHROMBIN TIME(12.1-14.0 SEC) 21.1 SEC July 09, 2014 11:00pm 22.0 SEC July 10, 2014 2:32am 21.5 SEC July 10, 2014 6:15am 15.0 SEC July 11, 2014 5:40am 14.3 SEC July 18, 2014 7:05am 14.7 SEC July 19, 2014 6:25am 16.2 SEC July 20, 2014 9:04am 18.2 SEC July 21, 2014 7:12am 33616-7: INR 1.80 Result Comments: INR reference interval applies to patients on anticoagulant therapy. Suggested INR therapeutic range for oral anticoagulant therapy: (Stabilized anticoagulated patients) Routine Therapy: 2.0 to 3.0 Recurrent Myocardial Infarction: 2.5 to 3.5 Mechanical Prosthetic Valves: 2.5 to 3.5 July 09, 2014 11:00pm 1.89 Result Comments: INR reference interval applies to patients on anticoagulant therapy. Suggested INR therapeutic range for oral anticoagulant therapy: (Stabilized anticoagulated patients) Routine Therapy: 2.0 to 3.0 Recurrent Myocardial Infarction: 2.5 to 3.5 Mechanical Prosthetic Valves: 2.5 to 3.5 July 10, 2014 2:32am 1.84 Result Comments: INR reference interval applies to patients on anticoagulant therapy. Suggested INR therapeutic range for oral anticoagulant therapy: (Stabilized anticoagulated patients) Routine Therapy: 2.0 to 3.0 Recurrent Myocardial Infarction: 2.5 to 3.5 Mechanical Prosthetic Valves: 2.5 to 3.5 July 10, 2014 6:15am 1.17 Result Comments: INR reference interval applies to patients on anticoagulant therapy. Suggested INR therapeutic range for oral anticoagulant therapy: (Stabilized anticoagulated patients) Routine Therapy: 2.0 to 3.0 Recurrent Myocardial Infarction: 2.5 to 3.5 Mechanical Prosthetic Valves: 2.5 to 3.5 July 11, 2014 5:40am 1.10 Result Comments: INR reference interval applies to patients on anticoagulant therapy. Suggested INR therapeutic range for oral anticoagulant therapy: (Stabilized anticoagulated patients) Routine Therapy: 2.0 to 3.0 Recurrent Myocardial Infarction: 2.5 to 3.5 Mechanical Prosthetic Valves: 2.5 to 3.5 July 18, 2014 7:05am 1.14 Result Comments: INR reference interval applies to patients on anticoagulant therapy. Suggested INR therapeutic range for oral anticoagulant therapy: (Stabilized anticoagulated patients) Routine Therapy: 2.0 to 3.0 Recurrent Myocardial Infarction: 2.5 to 3.5 Mechanical Prosthetic Valves: 2.5 to 3.5 July 19, 2014 6:25am 1.28 Result Comments: INR reference interval applies to patients on anticoagulant therapy. Suggested INR therapeutic range for oral anticoagulant therapy: (Stabilized anticoagulated patients) Routine Therapy: 2.0 to 3.0 Recurrent Myocardial Infarction: 2.5 to 3.5 Mechanical Prosthetic Valves: 2.5 to 3.5 July 20, 2014 9:04am 1.49 Result Comments: INR reference interval applies to patients on anticoagulant therapy. Suggested INR therapeutic range for oral anticoagulant therapy: (Stabilized anticoagulated patients) Routine Therapy: 2.0 to 3.0 Recurrent Myocardial Infarction: 2.5 to 3.5 Mechanical Prosthetic Valves: 2.5 to 3.5 July 21, 2014 7:12am 52256-9: COMPLETE METABOLIC PROFILE 09824-2: GLUCOSE(70-110 MG/DL) 124 MG/DL July 09, 2014 11:00pm BLOOD UREA NITROGEN(6-20 MG/DL) 20 MG/DL July 09, 2014 11:00pm 74354-8: CREATININE(0.50-1.20 MG/DL) 0.88 MG/DL July 09, 2014 11:00pm 32480-6: EST GLOMERULAR FILTRATION RATE(Greater than or equal to 60) Greater than or equal to 60 Result Comments: If the patient is of -Australian descent/extraction multiply the eGFR value by 1.212 to obtain the actual eGFR. >=60 mg/dL Normal 30-59 mg/dL Moderate Kidney Disease 15-29 mg/dL Severe Kidney Disease <15 mg/dL Kidney Failure July 09, 2014 11:00pm BUN CREATININE RATIO(10.0-20.0 RATIO) 23.0 RATIO July 09, 2014 11:00pm 41183-1: SODIUM(135-145 MMOL/L) 137 MMOL/L July 09, 2014 11:00pm 88509-2: POTASSIUM(3.6-5.0 MMOL/L) 3.9 MMOL/L July 09, 2014 11:00pm 57243-4: CHLORIDE(101-111 MMOL/L) 104 MMOL/L July 09, 2014 11:00pm 8-9: CO2(21-31 MMOL/L) 24.0 MMOL/L July 09, 2014 11:00pm 19555-9: ANION GAP(8-18) 13 July 09, 2014 11:00pm OSMO CALCULATED(270.0-290.0) 277.9 July 09, 2014 11:00pm CALCIUM(8.5-10.5 MG/DL) 8.6 MG/DL July 09, 2014 11:00pm BILIRUBIN,TOTAL(0.1-1.2 MG/DL) 0.2 MG/DL July 09, 2014 11:00pm ALKALINE PHOSPHATASE(42-121 IU/L) 48 IU/L July 09, 2014 11:00pm ASPARTATE AMINO TRANSFERASE(10-42 IU/L) 28 IU/L July 09, 2014 11:00pm ALANINE AMINOTRANSFERASE(10-60 IU/L) 25 IU/L July 09, 2014 11:00pm 44572-6: TOTAL PROTEIN(6.4-8.2 G/DL) 6.6 G/DL July 09, 2014 11:00pm ALBUMIN(3.5-5.5 G/DL) 3.7 G/DL July 09, 2014 11:00pm 2336-6: GLOBULIN(2.4-3.6) 2.9 July 09, 2014 11:00pm ALBUMIN/GLOBULIN RATIO(0.9-1.8 RATIO) 1.3 RATIO July 09, 2014 11:00pm BASIC METABOLIC PANEL 80052-0: GLUCOSE(70-110 MG/DL) 115 MG/DL July 12, 2014 7:36am 121 MG/DL July 13, 2014 7:39am 114 MG/DL July 14, 2014 5:49am 114 MG/DL July 15, 2014 8:06am 125 MG/DL July 17, 2014 6:25am 112 MG/DL July 18, 2014 7:06am 116 MG/DL July 20, 2014 9:04am BLOOD UREA NITROGEN(6-20 MG/DL) 18 MG/DL July 12, 2014 7:36am 14 MG/DL July 13, 2014 7:39am 16 MG/DL July 14, 2014 5:49am 21 MG/DL July 15, 2014 8:06am 19 MG/DL July 17, 2014 6:25am 22 MG/DL July 18, 2014 7:06am 16 MG/DL July 20, 2014 9:04am 29886-3: CREATININE(0.50-1.20 MG/DL) 1.11 MG/DL July 12, 2014 7:36am 0.87 MG/DL July 13, 2014 7:39am 1.11 MG/DL July 14, 2014 5:49am 1.05 MG/DL July 15, 2014 8:06am 0.96 MG/DL July 17, 2014 6:25am 0.96 MG/DL July 18, 2014 7:06am 0.91 MG/DL July 20, 2014 9:04am 90780-4: EST GLOMERULAR FILTRATION RATE(Greater than or equal to 60) Greater than or equal to 60 Result Comments: If the patient is of -Australian descent/extraction multiply the eGFR value by 1.212 to obtain the actual eGFR. >=60 mg/dL Normal 30-59 mg/dL Moderate Kidney Disease 15-29 mg/dL Severe Kidney Disease <15 mg/dL Kidney Failure July 12, 2014 7:36am Greater than or equal to 60 Result Comments: If the patient is of -Australian descent/extraction multiply the eGFR value by 1.212 to obtain the actual eGFR. >=60 mg/dL Normal 30-59 mg/dL Moderate Kidney Disease 15-29 mg/dL Severe Kidney Disease <15 mg/dL Kidney Failure July 13, 2014 7:39am Greater than or equal to 60 Result Comments: If the patient is of -Australian descent/extraction multiply the eGFR value by 1.212 to obtain the actual eGFR. >=60 mg/dL Normal 30-59 mg/dL Moderate Kidney Disease 15-29 mg/dL Severe Kidney Disease <15 mg/dL Kidney Failure July 14, 2014 5:49am Greater than or equal to 60 Result Comments: If the patient is of -Australian descent/extraction multiply the eGFR value by 1.212 to obtain the actual eGFR. >=60 mg/dL Normal 30-59 mg/dL Moderate Kidney Disease 15-29 mg/dL Severe Kidney Disease <15 mg/dL Kidney Failure July 15, 2014 8:06am Greater than or equal to 60 Result Comments: If the patient is of -Australian descent/extraction multiply the eGFR value by 1.212 to obtain the actual eGFR. >=60 mg/dL Normal 30-59 mg/dL Moderate Kidney Disease 15-29 mg/dL Severe Kidney Disease <15 mg/dL Kidney Failure July 17, 2014 6:25am Greater than or equal to 60 Result Comments: If the patient is of -Australian descent/extraction multiply the eGFR value by 1.212 to obtain the actual eGFR. >=60 mg/dL Normal 30-59 mg/dL Moderate Kidney Disease 15-29 mg/dL Severe Kidney Disease <15 mg/dL Kidney Failure July 18, 2014 7:06am Greater than or equal to 60 Result Comments: If the patient is of -Australian descent/extraction multiply the eGFR value by 1.212 to obtain the actual eGFR. >=60 mg/dL Normal 30-59 mg/dL Moderate Kidney Disease 15-29 mg/dL Severe Kidney Disease <15 mg/dL Kidney Failure July 20, 2014 9:04am BUN CREATININE RATIO(10.0-20.0 RATIO) 16.0 RATIO July 12, 2014 7:36am 16.0 RATIO July 13, 2014 7:39am 14.0 RATIO July 14, 2014 5:49am 20.0 RATIO July 15, 2014 8:06am 20.0 RATIO July 17, 2014 6:25am 23.0 RATIO July 18, 2014 7:06am 18.0 RATIO July 20, 2014 9:04am 24709-4: SODIUM(135-145 MMOL/L) 139 MMOL/L July 12, 2014 7:36am 136 MMOL/L July 13, 2014 7:39am 135 MMOL/L July 14, 2014 5:49am 137 MMOL/L July 15, 2014 8:06am 134 MMOL/L July 17, 2014 6:25am 138 MMOL/L July 18, 2014 7:06am 135 MMOL/L July 20, 2014 9:04am 69258-2: POTASSIUM(3.6-5.0 MMOL/L) 4.3 MMOL/L July 12, 2014 7:36am 4.2 MMOL/L July 13, 2014 7:39am 3.9 MMOL/L July 14, 2014 5:49am 4.6 MMOL/L July 15, 2014 8:06am 4.4 MMOL/L July 17, 2014 6:25am 4.1 MMOL/L July 18, 2014 7:06am 3.7 MMOL/L July 20, 2014 9:04am 39873-8: CHLORIDE(101-111 MMOL/L) 108 MMOL/L July 12, 2014 7:36am 103 MMOL/L July 13, 2014 7:39am 102 MMOL/L July 14, 2014 5:49am 101 MMOL/L July 15, 2014 8:06am 104 MMOL/L July 17, 2014 6:25am 105 MMOL/L July 18, 2014 7:06am 100 MMOL/L July 20, 2014 9:04am 2027-9: CO2(21-31 MMOL/L) 28.0 MMOL/L July 12, 2014 7:36am 28.0 MMOL/L July 13, 2014 7:39am 25.0 MMOL/L July 14, 2014 5:49am 30.0 MMOL/L July 15, 2014 8:06am 22.0 MMOL/L July 17, 2014 6:25am 26.0 MMOL/L July 18, 2014 7:06am 28.0 MMOL/L July 20, 2014 9:04am 32113-5: ANION GAP(8-18) 7 July 12, 2014 7:36am 9 July 13, 2014 7:39am July 14, 2014 5:49am July 15, 2014 8:06am July 17, 2014 6:25am July 18, 2014 7:06am July 20, 2014 9:04am OSMO CALCULATED(270.0-290.0) 280.4 July 12, 2014 7:36am 273.7 July 13, 2014 7:39am 272.1 July 14, 2014 5:49am 277.7 July 15, 2014 8:06am 272.0 July 17, 2014 6:25am 279.8 July 18, 2014 7:06am 272.3 July 20, 2014 9:04am CALCIUM(8.5-10.5 MG/DL) 8.3 MG/DL July 12, 2014 7:36am 8.5 MG/DL July 13, 2014 7:39am 8.8 MG/DL July 14, 2014 5:49am 9.2 MG/DL July 15, 2014 8:06am 8.4 MG/DL July 17, 2014 6:25am 8.5 MG/DL July 18, 2014 7:06am 8.9 MG/DL July 20, 2014 9:04am 79272-0: MAGNESIUM 14329-5: MAGNESIUM(1.8-2.5 MG/DL) 2.0 MG/DL July 17, 2014 6:25am 2.4 MG/DL July 18, 2014 7:06am 1.8 MG/DL July 20, 2014 9:04am IRON IRON(40-160 UG/DL) 21 UG/DL July 15, 2014 8:06am FERRITIN FERRITIN(23.9-336.2 NG/ML) 29.5 NG/ML July 15, 2014 8:06am VITAMIN B12 AND FOLATE 2132-9: VITAMIN B12(180-914 PG/ML) 748 PG/ML Result Comments: REFERENCE RANGES: B12 NORMAL 180-914 PG/ML B12 INDETERMINATE 145-180 PG/ML B12 DEFICIENT <145 PG/ML July 15, 2014 8:06am FOLATE(5.90-24.80 NG/ML) Greater than 22.30 NG/ML Result Comments: The folate assay is not traceable to WHO standards. Patient values may shift upwards from previous values. Please note the new Reference Range and Deficiency cutoff values. Reference Range: 5.90 - 24.80 ng/ml Deficiency Cutoff: <4.00 ng/ml July 15, 2014 8:06am Microbiology Results Visit/Account #[id number] (July 09, 2014 9:45pm - July 21, 2014 3:07pm) Procedure Result 52969-3: MRSA SCREEN FOR INFEC CONTROL 03162-9: MRSA SCREEN FOR INFEC CONTROL Result Instance On July 10, 2014 12:08am Source: [facility] Result Comments: No growth Bloodbank Results Visit/Account #[id number] (July 09, 2014 9:45pm - July 21, 2014 3:07pm) Test Result ABO/RH 81545-8: BLOOD TYPE O POSITIVE on July 16, 2014 2:53pm ANTIBODY SCREEN ANTIBODY SCREEN NEGATIVE on July 16, 2014 2:53pm Allergies and Adverse Reactions Allergies and Adverse Reactions Patient Unit Number: [id number] Agent Type Reaction Severity Status METOCLOPRAMIDE HCL Drug Allergy Unknown Moderate Active KETOROLAC TROMETHAMINE Drug Allergy Unknown Unknown Active NSAIDS (NON-STEROIDAL ANTI-INFLAMMA Drug Adverse Reaction Unknown Moderate Active PROCHLORPERAZINE Drug Allergy Unknown Mild Active MORPHINE Drug Allergy Unknown Mild Active Problem List Problem List Visit/Account #[id number] (July 09, 2014 9:45pm - July 21, 2014 3:07pm) Acute Problems: Code/Condition Comments Documented Start Date Documented Resolved Date Code (s) CAD (coronary artery disease) ICD10: I25.10 Atherosclerosis of coronary artery ICD9: 414.00 Atherosclerosis of coronary artery SNOMED: 397097690 Atherosclerosis of coronary artery COPD (chronic obstructive pulmonary disease) ICD10: J44.9 Chronic obstructive pulmonary disease ICD9: 496 Chronic obstructive pulmonary disease SNOMED: 71413491 Chronic obstructive pulmonary disease Closed fracture of part of neck of femur July 09, 2014 ICD10: S72.009A Closed fracture of neck of femur ICD9: 820.8 Closed fracture of neck of femur SNOMED: 929307358 Closed fracture of neck of femur Femoral neck fracture ICD10: S72.009A Fracture of neck of femur ICD9: 820.8 Fracture of neck of femur SNOMED: 8575350 Fracture of neck of femur Hypertension ICD10: I10 Hypertension ICD9: 401.9 Hypertension SNOMED: 69259870 Hypertension Hyperlipidemia ICD10: E78.5 Hyperlipidemia ICD9: 272.4 Hyperlipidemia SNOMED: 05348537 Hyperlipidemia Femoral neck fracture ICD10: S72.009A Fracture of neck of femur ICD9: 820.8 Fracture of neck of femur SNOMED: 4707475 Fracture of neck of femur History of ASCVD (arteriosclerotic cardiovascular disease) ICD10: Z86.79 History of arteriosclerotic cardiovascular disease ICD9: V12.59 History of arteriosclerotic cardiovascular disease SNOMED: 282362506 History of arteriosclerotic cardiovascular disease Plan of Care Plan Of Care Visit/Account #[id number] (July 09, 2014 9:45pm - July 21, 2014 3:07pm) Patient Instructions Instructions Warfarin DI for Warfarin Therapy Vital Signs Vital Signs Visit/Account #[id number] (July 09, 2014 9:45pm - July 21, 2014 3:07pm) Sign First Result Last Result Code(s) Blood Pressure 156/ 74 mm[Hg] On July 10, 2014 3:52am 132/ 62 mm[Hg] On July 21, 2014 1:[facility] 8480-6 BP Systolic Heart Rate/Pulse Pulse Rate (adult): 80 /min On July 10, 2014 3:52am Pulse Rate (adult): 60 /min On July 21, 2014 1:32pm 8867-4 Heart Rate 8893-0 Pulse rate Respiratory Rate Respiratory Rate: 24 /min On July 10, 2014 3:52am Respiratory Rate: 18 /min On July 21, 2014 1:32pm 9279-1 Respiratory rate Temperature in Fahrenheit Temperature (Fahrenheit): 98 [degF] On July 09, 2014 9:44pm Temperature (Fahrenheit): 98.8 [degF] On July 21, 2014 1:32pm 8310-5 Body Temperature Weight in Kilograms Weight (Kilograms): 79.55 kg On July 09, 2014 9:44pm 3141-9 Weight Measured 39127-0 Body weight measured in kilograms Functional Status Functional and Cognitive Status No Functional Status Data Medications Home Medications - Medications that the patient was taking prior to arrival at the hospital Visit/Account #[id number] (July 09, 2014 9:45pm - July 21, 2014 3:07pm) Medication Route Sig/Schedule Precondition/Indication Comments/Instructions Codes CARAFATE(SUCRALFATE) 1 GM TABLET Dose: 1 G ORAL 4 TIMES DAILY Sucralfate 1000 MG Oral Tablet (RxNorm): 690339 CARAFATE (SUCRALFATE) NDC: 80334506207 FLONASE(FLUTICASONE PROPIONATE) 16 GM NASAL SPRAY Dose: 2 INH IN NASAL DAILY Rx Instructions: *in each nostril* 120 ACTUAT Fluticasone propionate 0.05 MG/ACTUAT Nasal Inhaler (RxNorm): 708983 FLONASE (FLUTICASONE PROPIONATE) NDC: 03198542965 Plavix(CLOPIDOGREL BISULFATE) 75 MG TAB Dose: 75 MG ORAL DAILY clopidogrel 75 MG Oral Tablet [Plavix] (RxNorm): 150613 Plavix (CLOPIDOGREL BISULFATE) NDC: 91959644912 DIOVAN(VALSARTAN) 320 MG TAB Dose: 320 MG ORAL DAILY valsartan 320 MG Oral Tablet [Diovan] (RxNorm): 220466 DIOVAN (VALSARTAN) NDC: 27423189861 Omeprazole(OMEPRAZOLE) 20 MG CAP Dose: 20 MG ORAL 60 MIN BEFORE BKFST Omeprazole 20 MG Enteric Coated Capsule (RxNorm): 650027 Omeprazole (OMEPRAZOLE) NDC: 62220186184 ESCITALOPRAM OXALATE(ESCITALOPRAM OXALATE) 20 MG TABLET Dose: 20 MG ORAL DAILY Escitalopram 20 MG Oral Tablet (RxNorm): 003936 ESCITALOPRAM OXALATE (ESCITALOPRAM OXALATE) NDC: 06740507756 ALBUTEROL SULF HFA(ALBUTEROL SULFATE) 8.5 GM PUFF Dose: 2 INH ORAL Q4H SHORTNESS OF BREATH/WHEEZING ALBUTEROL SULF HFA (ALBUTEROL SULFATE) NDC: 00457109240 PEPCID(FAMOTIDINE) 20 MG TABLET Dose: 40 MG ORAL TWICE A DAY Famotidine 20 MG Oral Tablet (RxNorm): 935596 PEPCID (FAMOTIDINE) NDC: 98571752773 REMERON(MIRTAZAPINE) 30 MG TABLET Dose: 30 MG ORAL AT BEDTIME Mirtazapine 30 MG Oral Tablet [Remeron] (RxNorm): 576280 REMERON (MIRTAZAPINE) NDC: 37209483029 SEROQUEL(QUEtiapine FUMARATE) 50 MG TABLET Dose: 50 MG ORAL AT BEDTIME quetiapine 50 MG Oral Tablet [Seroquel] (RxNorm): 798789 SEROQUEL (QUEtiapine FUMARATE) NDC: 83946539360 TYLENOL(ACETAMINOPHEN) 500 MG TAB Dose: 500-1000 MG ORAL EVERY 4 HOURS PAIN Acetaminophen 500 MG Oral Tablet [Mapap] (RxNorm): 952856 TYLENOL (ACETAMINOPHEN) NDC: 40417659948 Geritol Complete Tablet(IRON/VITAMIN B COMP W-C) 1 EACH TABLET Dose: 1 TAB ORAL DAILY AT [facility] Geritol Complete Tablet (IRON/VITAMIN B COMP W-C) NDC: 53616106335 KLONOPIN(ClonAZEPAM) 0.5 MG TABLET Dose: 0.25 MG ORAL AT BEDTIME Clonazepam 0.5 MG Oral Tablet [Klonopin] (RxNorm): 025430 KLONOPIN (ClonAZEPAM) NDC: 69648612347 Trazodone Hcl(TraZODone HCL) 150 MG TABLET Dose: 300 MG ORAL AT BEDTIME Trazodone Hydrochloride 150 MG Oral Tablet (RxNorm): 988769 Trazodone Hcl (TraZODone HCL) NDC: 47982286966 Cymbalta(DULoxetine HCL) 30 MG CAP Dose: 30 MG ORAL DAILY duloxetine 30 MG Delayed Release Oral Capsule [Cymbalta] (RxNorm): 989798 Cymbalta (DULoxetine HCL) NDC: 05788986332 ASPIR-LOW(ASPIRIN) 81 MG TABLET.DR Dose: 81 MG ORAL DAILY Aspirin 81 MG Delayed Release Oral Tablet [Aspir-Low] (RxNorm): 9012875 ASPIR-LOW (ASPIRIN) NDC: 27376288005 LIPITOR(ATORVASTATIN) 20 MG TAB Dose: 20 MG ORAL AT BEDTIME atorvastatin 20 MG Oral Tablet [Lipitor] (RxNorm): 843371 LIPITOR (ATORVASTATIN) NDC: 10520362031 LOPRESSOR(METOPROLOL TARTRATE) 50 MG TABLET Dose: 50 MG ORAL TWICE A DAY Metoprolol Tartrate 50 MG Oral Tablet [Lopressor] (RxNorm): 255482 LOPRESSOR (METOPROLOL TARTRATE) NDC: 22402619566 LOVENOX(ENOXAPARIN) 120 MG/0.8 ML INJECTION Dose: 120 MG SUBCUTANEOUSLY DAILY 0.8 ML Enoxaparin sodium 150 MG/ML Prefilled Syringe [Lovenox] (RxNorm): 277900 LOVENOX (ENOXAPARIN) NDC: 49200115327 COUMADIN(WARFARIN SODIUM) 5 MG TAB Dose: 5 MG ORAL DAILY Warfarin Sodium 5 MG Oral Tablet [Coumadin] (RxNorm): 252469 COUMADIN (WARFARIN SODIUM) NDC: 24296987799 PERCOCET 5-325(OxyCODONE HCL/ACETAMINOPHEN) 1 EACH TABLET Dose: 1-2 TAB ORAL EVERY 4 HOURS PAIN Acetaminophen 325 MG / Oxycodone Hydrochloride 5 MG Oral Tablet [Roxicet] ( RxNorm): 9576331 PERCOCET 5-325 (OxyCODONE HCL/ACETAMINOPHEN) NDC: 28185325780 OXYCODONE HCL/ACETAMINOPHEN 5-325(OxyCODONE HCL/ACETAMINOPHEN) 1 EACH TABLET Dose: 1 TAB ORAL EVERY 4 HRS WHILE AWAKE BREAKTHROUGH PAIN Acetaminophen 325 MG / Oxycodone Hydrochloride 5 MG Oral Tablet (RxNorm): 4981081 OXYCODONE HCL/ACETAMINOPHEN 5-325 (OxyCODONE HCL/ACETAMINOPHEN) NDC: 30770483313 Warfarin Sodium(WARFARIN SODIUM) 5 MG TABLET Dose: 5 MG ORAL DAILY@1800 Warfarin Sodium 5 MG Oral Tablet (RxNorm): 580253 Warfarin Sodium (WARFARIN SODIUM) NDC: 98368959319 Famotidine(FAMOTIDINE) 40 MG TAB Dose: 40 MG ORAL TWICE A DAY Famotidine (FAMOTIDINE) NDC: 30828384184 Gabapentin(GABAPENTIN) 100 MG CAP Dose: 100 MG ORAL 3 TIMES A DAY Gabapentin (GABAPENTIN) NDC: 92524585401 Warfarin Sodium(WARFARIN SODIUM) 1 MG TABLET Dose: 1 MG ORAL DAILY@1800 Rx Instructions: *total of 6mg daily* Warfarin Sodium 1 MG Oral Tablet (RxNorm): 907701 Warfarin Sodium (WARFARIN SODIUM) NDC: 77767665391 Warfarin Sodium(WARFARIN SODIUM) 5 MG TABLET Dose: 5 MG ORAL DAILY@1800 Rx Instructions: *total of 6mg daily* Warfarin Sodium 5 MG Oral Tablet (RxNorm): 226499 Warfarin Sodium (WARFARIN SODIUM) NDC: 93008030776 Inpatient/Ordered Medications - Medications administered during hospital visit Visit/Account #[id number] (July 09, 2014 9:45pm - July 21, 2014 3:07pm) Medication Route Sig/Schedule Precondition/Indication Comments/Instructions Codes SUBLIMAZE INJ(FentaNYL CITRATE) 100 MCG/2 ML INJECTION Dose: 1 ML INTRAVEN NOW Rx Order Comments: Order placed as verified: Dose Warnings differ from order schedule clerk Dose Warnings differ from order schedule clerk Label Comments: GIVE BY SLOW PUSH OVER 2-5 MIN MAY INCREASE FALL RISK Fentanyl 0.05 MG/ML Injectable Solution (RxNorm): 581709 SUBLIMAZE INJ (FentaNYL CITRATE) NDC: 47242351211 ZOFRAN INJ(ONDansetron HCL) 4 MG/2 ML INJECTION Dose: 2 ML INTRAVEN NOW Rx Order Comments: Order placed as verified: Dose Warnings differ from order schedule clerk Dose Warnings differ from order schedule clerk Label Comments: SLOW IV PUSH MAY INCREASE FALL RISK Ondansetron 2 MG/ML Injectable Solution (RxNorm): 676369 ZOFRAN INJ (ONDansetron HCL) NDC: 57919760798 SUBLIMAZE INJ(FentaNYL CITRATE) 100 MCG/2 ML INJECTION Dose: 1 ML INTRAVEN EVERY 2 HRS WHILE AWAKE PRN Reason: BREAKTHROUGH PAIN Fentanyl 0.05 MG/ML Injectable Solution (RxNorm): 527566 SUBLIMAZE INJ (FentaNYL CITRATE) NDC: 38712412023 DILAUDID(HYDROmorphone HCL) 2 MG/ML INJECTION Dose: 1 ML INTRAVEN Q2H PRN Reason: SEVERE PAIN Label Comments: MAY INCREASE FALL RISK Special Dose Instructions: May give IM if IV line not available 1 ML Hydromorphone Hydrochloride 2 MG/ML Prefilled Syringe (RxNorm): 722850 DILAUDID (HYDROmorphone HCL) NDC: 29033280362 LIPITOR(ATORVASTATIN) 20 MG TAB Dose: 20 MG ORAL AT BEDTIME Label Comments: TERATOGENIC. WOMEN SHOULD NOT HANDLE OR CRUSH. atorvastatin 20 MG Oral Tablet [Lipitor] (RxNorm): 772562 LIPITOR (ATORVASTATIN) NDC: 62323165421 CYMBALTA(DULoxetine HCL) 30 MG CAP Dose: 30 MG ORAL DAILY Label Comments: MAY INCREASE FALL RISK duloxetine 30 MG Delayed Release Oral Capsule (RxNorm): 480280 CYMBALTA (DULoxetine HCL) NDC: 25269980206 PEPCID(FAMOTIDINE) 20 MG TAB Dose: 40 MG ORAL TWICE A DAY Famotidine 20 MG Oral Tablet (RxNorm): 470088 PEPCID (FAMOTIDINE) NDC: 56421437502 LOPRESSOR(METOPROLOL TARTRATE) 50 MG TAB Dose: 50 MG ORAL TWICE A DAY Label Comments: MAY INCREASE FALL RISK Metoprolol Tartrate 50 MG Oral Tablet (RxNorm): 841876 LOPRESSOR (METOPROLOL TARTRATE) NDC: 57099564538 REMERON(MIRTAZAPINE) 30 MG TAB Dose: 30 MG ORAL AT BEDTIME Label Comments: MAY INCREASE FALL RISK Mirtazapine 30 MG Oral Tablet (RxNorm): 801262 REMERON (MIRTAZAPINE) NDC: 37273072516 SEROquel(QUEtiapine FUMARATE) 50 MG TAB Dose: 50 MG ORAL AT BEDTIME Label Comments: MAY INCREASE FALL RISK quetiapine 50 MG Oral Tablet [Seroquel] (RxNorm): 949871 SEROquel (QUEtiapine FUMARATE) NDC: 77427562246 DESYREL(TraZODone HCL) 150 MG TAB Dose: 300 MG ORAL AT BEDTIME Label Comments: MAY INCREASE FALL RISK Trazodone Hydrochloride 150 MG Oral Tablet (RxNorm): 820392 DESYREL (TraZODone HCL) NDC: 86465663695 DIOVAN(VALSARTAN) 320 MG TAB Dose: 320 MG ORAL DAILY valsartan 320 MG Oral Tablet [Diovan] (RxNorm): 149113 DIOVAN (VALSARTAN) NDC: 09238735175 VALIUM(DIAZEPAM) 5 MG TAB Dose: 0 MG ORAL Q8H PRN Reason: MUSCLE SPASM Label Comments: MAY INCREASE FALL RISK Special Dose Instructions: 2.5-5mg po for muscle spasms Diazepam 5 MG Oral Tablet (RxNorm): 128874 VALIUM (DIAZEPAM) NDC: 14799081982 PERCOCET 7.5/325(OxyCODONE/ACETAMINOPHEN) 1 TAB TAB Dose: 0 TAB ORAL Q4H PRN Reason: MODERATE TO SEVERE PAIN Label Comments: MAX REC DOSE ACETAMINOPHEN: 4000MG/24HRS MAY INCREASE FALL RISK Special Dose Instructions: 1-2 TABS Acetaminophen 325 MG / Oxycodone Hydrochloride 7.5 MG Oral Tablet (RxNorm): 4759210 PERCOCET 7.5/325 (OxyCODONE/ACETAMINOPHEN) NDC: 82013953038 LOVENOX(ENOXAPARIN) 30 MG/0.3 ML INJECTION Dose: 0.3 ML SUBCUTANEOUSLY BID@ Label Comments: INJECT SC INTO ABDOMINAL WALL ONLY. 0.3 ML Enoxaparin sodium 100 MG/ML Prefilled Syringe [Lovenox] (RxNorm): 938784 LOVENOX (ENOXAPARIN) NDC: 71852574073 PLAVIX(CLOPIDOGREL BISULFATE) 75 MG TAB Dose: 75 MG ORAL DAILY clopidogrel 75 MG Oral Tablet [Plavix] (RxNorm): 137134 PLAVIX (CLOPIDOGREL BISULFATE) NDC: 22763132683 VALIUM(DIAZEPAM) 5 MG TAB Dose: 0 MG ORAL Q6H PRN Reason: MUSCLE SPASM Label Comments: MAY INCREASE FALL RISK Special Dose Instructions: 2.5-5mg po for muscle spasms Diazepam 5 MG Oral Tablet (RxNorm): 903162 VALIUM (DIAZEPAM) NDC: 01363068565 NEURONTIN(GABAPENTIN) 100 MG CAP Dose: 100 MG ORAL 3 TIMES A DAY Label Comments: MAY INCREASE FALL RISK gabapentin 100 MG Oral Capsule (RxNorm): 081777 NEURONTIN (GABAPENTIN) NDC: 96559836835 KlonoPIN(ClonAZEPAM) 0.5 MG TAB Dose: 0.25 MG ORAL AT BEDTIME Label Comments: MAY INCREASE FALL RISK Clonazepam 0.5 MG Oral Tablet (RxNorm): 131463 KlonoPIN (ClonAZEPAM) NDC: 87755998502 LOVENOX(ENOXAPARIN) 30 MG/0.3 ML INJECTION Dose: 0.3 ML SUBCUTANEOUSLY BID@ Label Comments: INJECT SC INTO ABDOMINAL WALL ONLY. 0.3 ML Enoxaparin sodium 100 MG/ML Prefilled Syringe [Lovenox] (RxNorm): 654690 LOVENOX (ENOXAPARIN) NDC: 78836298632 PERCOCET 10/325 MG(OxyCODONE/ACETAMINOPHEN) 1 TAB TAB Dose: 1 TAB ORAL Q4H Rx Order Comments: Order filed UNV: Allergies/Duplicates/Interactions differ from order schedule clerk Label Comments: MAX REC DOSE ACETAMINOPHEN: 4000MG/24HRS MAY INCREASE FALL RISK Acetaminophen 325 MG / Oxycodone Hydrochloride 10 MG Oral Tablet (RxNorm): 6972299 PERCOCET 10/325 MG (OxyCODONE/ACETAMINOPHEN) NDC: 07660879824 COLACE(DOCUSATE SODIUM) 100 MG CAP Dose: 100 MG ORAL TWICE A DAY Docusate Sodium 100 MG Oral Capsule (RxNorm): 7245915 COLACE (DOCUSATE SODIUM) NDC: 70777259776 MIRALAX(POLYETHYLENE GLYCOL) 17 GM POWDER Dose: 17 GM ORAL DAILY Label Comments: DISSOLVE IN 8 OZ OF WATER POLYETHYLENE GLYCOL 3350 142 MG/ML Oral Solution (RxNorm): 485949 MIRALAX (POLYETHYLENE GLYCOL) NDC: 26084069405 PEPCID INJ(FAMOTIDINE) 20 MG/2 ML INJECTION Dose: 2 ML INTRAVEN .PSCU.DAKOTA Rx Order Comments: Order placed as verified: Dose Warnings differ from order schedule clerk Dose Warnings differ from order schedule clerk Label Comments: Push over at least 2 minutes Famotidine 10 MG/ML Injectable Solution (RxNorm): 880593 PEPCID INJ (FAMOTIDINE) NDC: 75474575625 VERSED INJ(MIDAZOLAM HCL) 2 MG/2 ML INJECTION Dose: 2 ML INTRAVEN .PSCU.DAKOTA Rx Order Comments: Order placed as verified: Dose Warnings differ from order schedule clerk Dose Warnings differ from order schedule clerk Midazolam 1 MG/ML Injectable Solution (RxNorm): 391147 VERSED INJ (MIDAZOLAM HCL) NDC: 25952037692 ZOFRAN INJ(ONDansetron HCL) 4 MG/2 ML INJECTION Dose: 2 ML INTRAVEN .PSCU.DAKOTA Rx Order Comments: Order placed as verified: Dose Warnings differ from order schedule clerk Dose Warnings differ from order schedule clerk Ondansetron 2 MG/ML Injectable Solution (RxNorm): 786661 ZOFRAN INJ (ONDansetron HCL) NDC: 15802559544 DILAUDID(HYDROmorphone HCL) 2 MG/ML INJECTION Dose: 0 ML INTRAVEN Q3M PRN Reason: SEVERE PAIN Label Comments: to be given in PACU only Special Dose Instructions: 0.2 - 1 mg max mg 1 ML Hydromorphone Hydrochloride 2 MG/ML Prefilled Syringe (RxNorm): 701070 DILAUDID (HYDROmorphone HCL) NDC: 10294333929 FERGON(FERROUS GLUConate) 324 MG TAB Dose: 324 MG ORAL WITH BREAKFAST & SUPPER Label Comments: TAKE WITH FOOD IF GI UPSET OCCURS. OTHERWISE TAKE BETWEEN MEALS FOR MAXIMUM ABSORPTION. ferrous gluconate 324 MG Oral Tablet (RxNorm): 209995 FERGON (FERROUS GLUConate) NDC: 74428780115 IV Medication Carriers: ANCEF 2 GM/50 ML(CEFAZOLIN SODIUM/NORMAL SALINE) 2 GM/50 ML INJECTION Dose: 50 ML INTRAVEN .Preop (Rate: 100 MLS/HR Duration: 30 MIN) Clinical Indication: ABX Preop Prophylaxis Label Comments: To be given by surgical staff within 1 hour of surgical incision IV Medication Carriers: LR(LACTATED RINGER'S) 1000 ML INJECTION Dose: 1000 ML INTRAVEN .[id number] (Rate: 60 MLS/HR Duration: 16 HR 40 MIN) Carriers: Calcium Chloride 0.0014 MEQ/ML / Potassium Chloride 0.004 MEQ/ML / Sodium Chloride 0.103 MEQ (RxNorm): 032830 LR (LACTATED RINGER'S) NDC: 51854870276 IV Medication Carriers: ANCEF 1 GM/50 ML(CEFAZOLIN/DEXTROSE) 1 GM/50 ML INJECTION Dose: 50 ML INTRAVEN Q8S (Rate: 100 MLS/HR Duration: 30 MIN) Clinical Indication: ABX Surgical Postop Rx Order Comments: Order filed UNV: Dose Warnings differ from order schedule clerk Carriers: Cefazolin 20 MG/ML Injectable Solution (RxNorm): 487531 ANCEF 1 GM/50 ML (CEFAZOLIN/DEXTROSE) NDC: 55195029444 LEXAPRO(ESCITALOPRAM OXALATE) 20 MG TAB Dose: 20 MG ORAL DAILY Label Comments: MAY INCREASE FALL RISK Escitalopram 20 MG Oral Tablet [Lexapro] (RxNorm): 582934 LEXAPRO (ESCITALOPRAM OXALATE) NDC: 73094612907 FLONASE 0.05% NASPR(FLUTICASONE PROPIONATE) 120 SPRAY/16 GM NASAL SPRAY Dose: 0.2667 GM IN NASAL DAILY Rx Order Comments: Order filed UNV: Dose Warnings differ from order schedule clerk Label Comments: SHAKE GENTLY BEFORE USE 120 ACTUAT Fluticasone propionate 0.05 MG/ACTUAT Nasal Inhaler (RxNorm): 420809 FLONASE 0.05% NASPR (FLUTICASONE PROPIONATE) NDC: 88569115877 CARAFATE(SUCRALFATE) 1 GM TAB Dose: 1 GM ORAL 4 TIMES DAILY Sucralfate 1000 MG Oral Tablet (RxNorm): 456884 CARAFATE (SUCRALFATE) NDC: 65447324946 COUMADIN(WARFARIN SOD) 1 MG TAB Dose: 1 MG ORAL DAILY@1800 Warfarin Sodium 1 MG Oral Tablet [Coumadin] (RxNorm): 107574 COUMADIN (WARFARIN SOD) NDC: 24195449848 COUMADIN(WARFARIN SOD) 5 MG TAB Dose: 5 MG ORAL DAILY@1800 Warfarin Sodium 5 MG Oral Tablet [Coumadin] (RxNorm): 040480 COUMADIN (WARFARIN SOD) NDC: 38963620856 PROTONIX(PANTOPRAZOLE SOD) 40 MG TAB Dose: 40 MG ORAL 60 MIN BEFORE BKFST pantoprazole 40 MG Delayed Release Oral Tablet [Protonix] (RxNorm): 738974 PROTONIX (PANTOPRAZOLE SOD) NDC: 54332497366 DILAUDID(HYDROmorphone HCL) 2 MG/ML INJECTION Dose: 1 ML INTRAMUSC Q2H PRN Reason: PAIN Label Comments: MAY INCREASE FALL RISK 1 ML Hydromorphone Hydrochloride 2 MG/ML Prefilled Syringe (RxNorm): 913827 DILAUDID (HYDROmorphone HCL) NDC: 49861983681 MILK OF MAGNESIA 400 MG/5 ML(MAGNESIUM HYDROXIDE) 30 ML SUSPENSION Dose: 30 ML ORAL NOW Label Comments: SHAKE WELL. Use with caution in patients with renal dysfunction. Magnesium Hydroxide 80 MG/ML Oral Suspension (RxNorm): 290529 MILK OF MAGNESIA 400 MG/5 ML (MAGNESIUM HYDROXIDE) NDC: 96667753838 ENULOSE LIQD(LACTULOSE) 20 GM/30 ML SYRUP Dose: 30 ML ORAL 4 TIMES DAILY PRN Reason: IF NO BOWEL MOVEMENT IN 24 HR Lactulose 667 MG/ML Oral Solution (RxNorm): 421233 ENULOSE LIQD (LACTULOSE) NDC: 64793367380 DULCOLAX(BISACODYL) 10 MG SUPPOSITORY Dose: 10 MG RECTALLY NOW Bisacodyl 10 MG Rectal Suppository [Bisac-Evac] (RxNorm): 024579 DULCOLAX (BISACODYL) NDC: 43023683816 DIOVAN(VALSARTAN) 40 MG TAB Dose: 40 MG ORAL DAILY Label Comments: MAY INCREASE FALL RISK valsartan 40 MG Oral Tablet [Diovan] (RxNorm): 134661 DIOVAN (VALSARTAN) NDC: 85336994520 Discharge Medications - Medications that patient should continue to take. Review with physician Visit/Account #[id number] (July 09, 2014 9:45pm - July 21, 2014 3:07pm) Medication Route Sig/Schedule Precondition/Indication Comments/Instructions Codes CARAFATE(SUCRALFATE) 1 GM TABLET Dose: 1 G ORAL 4 TIMES DAILY Sucralfate 1000 MG Oral Tablet (RxNorm): 677158 CARAFATE (SUCRALFATE) NDC: 78907746164 FLONASE(FLUTICASONE PROPIONATE) 16 GM NASAL SPRAY Dose: 2 INH IN NASAL DAILY Rx Instructions: *in each nostril* 120 ACTUAT Fluticasone propionate 0.05 MG/ACTUAT Nasal Inhaler (RxNorm): 908352 FLONASE (FLUTICASONE PROPIONATE) NDC: 08434298337 Plavix(CLOPIDOGREL BISULFATE) 75 MG TAB Dose: 75 MG ORAL DAILY clopidogrel 75 MG Oral Tablet [Plavix] (RxNorm): 748798 Plavix (CLOPIDOGREL BISULFATE) NDC: 73437866113 DIOVAN(VALSARTAN) 320 MG TAB Dose: 320 MG ORAL DAILY valsartan 320 MG Oral Tablet [Diovan] (RxNorm): 286292 DIOVAN (VALSARTAN) NDC: 09283926834 Omeprazole(OMEPRAZOLE) 20 MG CAP Dose: 20 MG ORAL 60 MIN BEFORE BKFST Omeprazole 20 MG Enteric Coated Capsule (RxNorm): 086265 Omeprazole (OMEPRAZOLE) NDC: 05637711058 ESCITALOPRAM OXALATE(ESCITALOPRAM OXALATE) 20 MG TABLET Dose: 20 MG ORAL DAILY Escitalopram 20 MG Oral Tablet (RxNorm): 449482 ESCITALOPRAM OXALATE (ESCITALOPRAM OXALATE) NDC: 62151922866 ALBUTEROL SULF HFA(ALBUTEROL SULFATE) 8.5 GM PUFF Dose: 2 INH ORAL Q4H SHORTNESS OF BREATH/WHEEZING ALBUTEROL SULF HFA (ALBUTEROL SULFATE) NDC: 96754926432 SEROQUEL(QUEtiapine FUMARATE) 50 MG TABLET Dose: 50 MG ORAL AT BEDTIME quetiapine 50 MG Oral Tablet [Seroquel] (RxNorm): 705606 SEROQUEL (QUEtiapine FUMARATE) NDC: 46943030699 Geritol Complete Tablet(IRON/VITAMIN B COMP W-C) 1 EACH TABLET Dose: 1 TAB ORAL DAILY AT BKFST Geritol Complete Tablet (IRON/VITAMIN B COMP W-C) NDC: 18568314458 KLONOPIN(ClonAZEPAM) 0.5 MG TABLET Dose: 0.25 MG ORAL AT BEDTIME Clonazepam 0.5 MG Oral Tablet [Klonopin] (RxNorm): 466224 KLONOPIN (ClonAZEPAM) NDC: 93971715961 Trazodone Hcl(TraZODone HCL) 150 MG TABLET Dose: 300 MG ORAL AT BEDTIME Trazodone Hydrochloride 150 MG Oral Tablet (RxNorm): 137488 Trazodone Hcl (TraZODone HCL) NDC: 28433781021 Cymbalta(DULoxetine HCL) 30 MG CAP Dose: 30 MG ORAL DAILY duloxetine 30 MG Delayed Release Oral Capsule [Cymbalta] (RxNorm): 123326 Cymbalta (DULoxetine HCL) NDC: 68652613780 LOPRESSOR(METOPROLOL TARTRATE) 50 MG TABLET Dose: 50 MG ORAL TWICE A DAY Metoprolol Tartrate 50 MG Oral Tablet [Lopressor] (RxNorm): 899630 LOPRESSOR (METOPROLOL TARTRATE) NDC: 39910676485 Famotidine(FAMOTIDINE) 40 MG TAB Dose: 40 MG ORAL TWICE A DAY Famotidine (FAMOTIDINE) NDC: 09099381089 Gabapentin(GABAPENTIN) 100 MG CAP Dose: 100 MG ORAL 3 TIMES A DAY Gabapentin (GABAPENTIN) NDC: 39302855857 Warfarin Sodium(WARFARIN SODIUM) 1 MG TABLET Dose: 1 MG ORAL DAILY@1800 Rx Instructions: *total of 6mg daily* Warfarin Sodium 1 MG Oral Tablet (RxNorm): 317400 Warfarin Sodium (WARFARIN SODIUM) NDC: 84153516219 Warfarin Sodium(WARFARIN SODIUM) 5 MG TABLET Dose: 5 MG ORAL DAILY@1800 Rx Instructions: *total of 6mg daily* Warfarin Sodium 5 MG Oral Tablet (RxNorm): 017402 Warfarin Sodium (WARFARIN SODIUM) NDC: 37788798484 Lipitor(ATORVASTATIN) 20 MG TAB Dose: 20 MG ORAL AT BEDTIME atorvastatin 20 MG Oral Tablet [Lipitor] (RxNorm): 575905 Lipitor (ATORVASTATIN) NDC: 95082013869 Endocet 10-325 Mg Tablet(OxyCODONE HCL/ACETAMINOPHEN) 1 TAB TAB Dose: 1 TAB ORAL Q4H Acetaminophen 325 MG / Oxycodone Hydrochloride 10 MG Oral Tablet (RxNorm): 8091513 Endocet 10-325 Mg Tablet (OxyCODONE HCL/ACETAMINOPHEN) NDC: 89965570553 History Of Encounters Encounters Visit/Account #[id number] (July 09, 2014 9:45pm - July 21, 2014 3:07pm) Account Status Physican Of Record Reason For Visit Visit Diagnosis Start Date/Time Stop Date/Time ER WEI SMITH MD CLOSER FRACURE OF PART OF NECK OF FEMUR Not Available Jul 09, 2014 9:45pm Jul 10, 2014 12:01am IN JARETT SANTIAGO MD CLOSER FRACURE OF PART OF NECK OF FEMUR Not Available Jul 09, 2014 10:32pm Jul 21, 2014 3:07pm History of Procedures Procedure List No procedures recorded. Discharge Instructions Discharge Instructions Visit/Account #[id number] (July 09, 2014 9:45pm - July 21, 2014 3:07pm) DISCHARGE INSTRUCTIONS Physician Documentation PROVIDER INSTRUCTIONS Discharge Diet As Tolerated Discharge Activity/Weight Bearing Status full wt; gait w/ assistance; R hip precautions Discharge Diet As Tolerated Discharge Activity/Weight Bearing Status full wt; gait w/ assistance; R hip precautions WOUND/INCISION/CATHETER CARE Incision/Wound Care imani removed SunJul 27; steri strip incision REASON TO CALL PROVIDER Notify Physician if: incision becomes reddened, hot to the touch, pus like drainage or drainage with a foul odor. temperature >101.5 any questions/concerns/problems FOLLOW UP APPOINTMENTS Follow Up With Jack Rios Jul 28 Follow Up PT/INR: INR q M, W, F until stable. Goal INR 2-3 Social History Social History No Social History Data. Immunizations Immunizations Patient Unit Number: [id number] Immunizations No immunizations recorded.
--- OUTSIDE RECORDS SUMMARY | 2018-02-04 14:44 | XMS REPORT | Continuity Of Care Document ---
Author Author [facility] Organization [facility] Address [address] [place] [address] Phone Care Team Providers Care Talent Buyer Name Role Phone MARVIN MADDEN DO Otf PP MESSI ROMERO, RICHARD Castro Unavailable EDDA ROMERO, JASBIR Priest AT JACK ROMERO, JARETT Bond CP [phone] Results Lab Results Visit/Account #[id number] (September 03, 2014 12:43pm - September 08, 2014 10:22am) Test Result Date/Time HEMOGLOBIN HEMOGLOBIN(13.5-17.5 G/DL) 9.5 G/DL September 04, 2014 7:37am 10.0 G/DL September 07, 2014 6:32am Allergies and Adverse Reactions Allergies and Adverse Reactions Patient Unit Number: [id number] Agent Type Reaction Severity Status METOCLOPRAMIDE HCL Drug Allergy Unknown Moderate Active KETOROLAC TROMETHAMINE Drug Allergy Unknown Unknown Active NSAIDS (NON-STEROIDAL ANTI-INFLAMMA Drug Adverse Reaction Unknown Moderate Active PROCHLORPERAZINE Drug Allergy Unknown Mild Active Problem List Problem List Visit/Account #[id number] (September 03, 2014 12:43pm - September 08, 2014 10:22am) Acute Problems: Code/Condition Comments Documented Start Date Documented Resolved Date Code (s) Chronic low back pain ICD10: M54.5 Chronic low back pain ICD9: 724.2 Chronic low back pain SNOMED: 980143393 Chronic low back pain History of ASCVD (arteriosclerotic cardiovascular disease) ICD10: Z86.79 History of arteriosclerotic cardiovascular disease ICD9: V12.59 History of arteriosclerotic cardiovascular disease SNOMED: 046192359 History of arteriosclerotic cardiovascular disease GERD (gastroesophageal reflux disease) ICD10: K21.9 Gastroesophageal reflux disease ICD9: 530.81 Gastroesophageal reflux disease SNOMED: 380152059 Gastroesophageal reflux disease Hip pain ICD10: M25.559 Hip pain ICD9: 719.45 Hip pain SNOMED: 37727907 Hip pain AVM (arteriovenous malformation) of duodenum, 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: 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 SNOMED: 500072150 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 Acute blood loss anemia ICD10: D62 Acute posthemorrhagic anemia ICD9: 285.1 Acute posthemorrhagic anemia SNOMED: 179822724 Acute posthemorrhagic anemia Chronic low back pain ICD10: M54.5 Chronic low back pain ICD9: 724.2 Chronic low back pain SNOMED: 212291627 Chronic low back pain CAD (coronary artery disease) ICD10: I25.10 Atherosclerosis of coronary artery ICD9: 414.00 Atherosclerosis of coronary artery SNOMED: 439906093 Atherosclerosis of coronary artery Depression ICD10: F32.9 Depression ICD9: 311 Depression SNOMED: 25431100 Depression Depression ICD10: F32.9 Depression ICD9: 311 Depression SNOMED: 06625828 Depression COPD (chronic obstructive pulmonary disease) ICD10: J44.9 Chronic obstructive pulmonary disease ICD9: 496 Chronic obstructive pulmonary disease SNOMED: 74018177 Chronic obstructive pulmonary disease Femoral neck fracture ICD10: S72.009A Fracture of neck of femur ICD9: 820.8 Fracture of neck of femur SNOMED: 3699862 Fracture of neck of femur Hypertension ICD10: I10 Hypertension ICD9: 401.9 Hypertension SNOMED: 01695770 Hypertension Hyperlipidemia ICD10: E78.5 Hyperlipidemia ICD9: 272.4 Hyperlipidemia SNOMED: 81419330 Hyperlipidemia Plan of Care Plan Of Care No Plan Of Care Data. Vital Signs Vital Signs Visit/Account #[id number] (September 03, 2014 12:43pm - September 08, 2014 10:22am) Sign First Result Last Result Code(s) Blood Pressure 118/ 74 mm[Hg] On September 03, 2014 12:45pm 120/ 66 mm[Hg] On September 08, 2014 4:42am 8480-6 BP Systolic Heart Rate/Pulse Pulse Rate (adult): 61 /min On September 03, 2014 12:45pm Pulse Rate (adult): 83 /min On September 08, 2014 4:42am 8867-4 Heart Rate 8893-0 Pulse rate Respiratory Rate Respiratory Rate: 20 /min On September 03, 2014 12:45pm Respiratory Rate: 16 /min On September 08, 2014 4:42am 9279-1 Respiratory rate Temperature in Fahrenheit Temperature (Fahrenheit): 97.4 [degF] On September 03, 2014 12:45pm Temperature (Fahrenheit): 97.0 [degF] On September 08, 2014 4:42am 8310-5 Body Temperature Functional Status Functional and Cognitive Status No Functional Status Data Medications Home Medications - Medications that the patient was taking prior to arrival at the hospital Visit/Account #[id number] (September 03, 2014 12:43pm - September 08, 2014 10:22am) Medication Route Sig/Schedule Precondition/Indication Comments/Instructions Codes CARAFATE(SUCRALFATE) 1 GM TABLET Dose: 1 G ORAL 4 TIMES DAILY Sucralfate 1000 MG Oral Tablet (RxNorm): 288620 CARAFATE (SUCRALFATE) NDC: 21558984577 FLONASE(FLUTICASONE PROPIONATE) 16 GM NASAL SPRAY Dose: 2 INH IN NASAL DAILY Rx Instructions: *in each nostril* 120 ACTUAT Fluticasone propionate 0.05 MG/ACTUAT Nasal Inhaler (RxNorm): 366154 FLONASE (FLUTICASONE PROPIONATE) NDC: 71293730594 DIOVAN(VALSARTAN) 320 MG TAB Dose: 320 MG ORAL DAILY valsartan 320 MG Oral Tablet [Diovan] (RxNorm): 113224 DIOVAN (VALSARTAN) NDC: 08107907537 ESCITALOPRAM OXALATE(ESCITALOPRAM OXALATE) 20 MG TABLET Dose: 20 MG ORAL DAILY Escitalopram 20 MG Oral Tablet (RxNorm): 906235 ESCITALOPRAM OXALATE (ESCITALOPRAM OXALATE) NDC: 39712121420 ALBUTEROL SULF HFA(ALBUTEROL SULFATE) 8.5 GM PUFF Dose: 2 INH ORAL Q4H SHORTNESS OF BREATH/WHEEZING ALBUTEROL SULF HFA (ALBUTEROL SULFATE) NDC: 37842405657 Geritol Complete Tablet(IRON/VITAMIN B COMP W-C) 1 EACH TABLET Dose: 1 TAB ORAL DAILY AT [facility] Geritol Complete Tablet (IRON/VITAMIN B COMP W-C) NDC: 93567623142 Trazodone Hcl(TraZODone HCL) 150 MG TABLET Dose: 300 MG ORAL AT BEDTIME Trazodone Hydrochloride 150 MG Oral Tablet (RxNorm): 785307 Trazodone Hcl (TraZODone HCL) NDC: 73840133072 Cymbalta(DULoxetine HCL) 30 MG CAP Dose: 30 MG ORAL DAILY duloxetine 30 MG Delayed Release Oral Capsule [Cymbalta] (RxNorm): 511517 Cymbalta (DULoxetine HCL) NDC: 55418164764 LOPRESSOR(METOPROLOL TARTRATE) 50 MG TABLET Dose: 50 MG ORAL TWICE A DAY Metoprolol Tartrate 50 MG Oral Tablet [Lopressor] (RxNorm): 725632 LOPRESSOR (METOPROLOL TARTRATE) NDC: 93667019009 Gabapentin(GABAPENTIN) 100 MG CAP Dose: 100 MG ORAL 3 TIMES A DAY Gabapentin (GABAPENTIN) NDC: 01642504479 PERCOCET 10-325(OxyCODONE HCL/ACETAMINOPHEN) 1 EACH TABLET Dose: 1 TAB ORAL 4 TIMES DAILY PAIN Acetaminophen 325 MG / Oxycodone Hydrochloride 10 MG Oral Tablet [Percocet] ( RxNorm): 1887841 PERCOCET 10-325 (OxyCODONE HCL/ACETAMINOPHEN) NDC: 31673684695 TYLENOL(ACETAMINOPHEN) 500 MG TAB Dose: 1000 MG ORAL EVERY 4 HOURS PAIN Rx Instructions: 500 - 1000 MG Acetaminophen 500 MG Oral Tablet [Mapap] (RxNorm): 107330 TYLENOL (ACETAMINOPHEN) NDC: 18874720427 ADVAIR DISKUS 50-100(SALMETEROL/FLUTICASONE) 14 DOSE PUFF Dose: 1 DOSE INHALED TWICE A DAY ADVAIR DISKUS 50-100 (SALMETEROL/FLUTICASONE) NDC: 82223857593 Lipitor(ATORVASTATIN) 20 MG TAB Dose: 20 MG ORAL AT BEDTIME atorvastatin 20 MG Oral Tablet [Lipitor] (RxNorm): 984899 Lipitor (ATORVASTATIN) NDC: 83616842050 DILAUDID(HYDROmorphone HCL) 2 MG TAB Dose: 2 MG ORAL EVERY 6 HOURS PAIN Hydromorphone Hydrochloride 2 MG Oral Tablet (RxNorm): 043685 DILAUDID (HYDROmorphone HCL) NDC: 51643387799 LEVAQUIN(LEVOFLOXACIN) 250 MG TAB Dose: 250 MG ORAL DAILY@10 Levofloxacin 250 MG Oral Tablet [Levaquin] (RxNorm): 277939 LEVAQUIN (LEVOFLOXACIN) NDC: 07717589358 PROTONIX(PANTOPRAZOLE) 40 MG TAB Dose: 40 MG ORAL 60 MIN BEFORE BKFST pantoprazole 40 MG Delayed Release Oral Tablet [Protonix] (RxNorm): 629885 PROTONIX (PANTOPRAZOLE) NDC: 19715738682 LEVAQUIN(LEVOFLOXACIN) 250 MG TAB Dose: 250 MG ORAL DAILY Levofloxacin 250 MG Oral Tablet [Levaquin] (RxNorm): 327963 LEVAQUIN (LEVOFLOXACIN) NDC: 45898426128 PROTONIX(PANTOPRAZOLE) 40 MG TAB Dose: 40 MG ORAL 60 MIN BEFORE BKFST pantoprazole 40 MG Delayed Release Oral Tablet [Protonix] (RxNorm): 801926 PROTONIX (PANTOPRAZOLE) NDC: 30604553870 Inpatient/Ordered Medications - Medications administered during hospital visit Visit/Account #[id number] (September 03, 2014 12:43pm - September 08, 2014 10:22am) Medication Route Sig/Schedule Precondition/Indication Comments/Instructions Codes DULCOLAX(BISACODYL) 5 MG TAB Dose: 5 MG ORAL TWICE A DAY PRN Reason: CONSTIPATION Label Comments: try first Bisacodyl 5 MG Delayed Release Oral Tablet (RxNorm): 733407 DULCOLAX (BISACODYL) NDC: 37096805390 LIPITOR(ATORVASTATIN) 20 MG TAB Dose: 20 MG ORAL AT BEDTIME Label Comments: TERATOGENIC. WOMEN SHOULD NOT HANDLE OR CRUSH. atorvastatin 20 MG Oral Tablet [Lipitor] (RxNorm): 084887 LIPITOR (ATORVASTATIN) NDC: 14524907392 CYMBALTA(DULoxetine HCL) 30 MG CAP Dose: 30 MG ORAL DAILY Label Comments: MAY INCREASE FALL RISK duloxetine 30 MG Delayed Release Oral Capsule (RxNorm): 880456 CYMBALTA (DULoxetine HCL) NDC: 19045370073 LEXAPRO(ESCITALOPRAM OXALATE) 20 MG TAB Dose: 20 MG ORAL DAILY Label Comments: MAY INCREASE FALL RISK Escitalopram 20 MG Oral Tablet [Lexapro] (RxNorm): 265175 LEXAPRO (ESCITALOPRAM OXALATE) NDC: 88093578740 NEURONTIN(GABAPENTIN) 100 MG CAP Dose: 100 MG ORAL 3 TIMES A DAY Label Comments: MAY INCREASE FALL RISK gabapentin 100 MG Oral Capsule (RxNorm): 887771 NEURONTIN (GABAPENTIN) NDC: 25437851348 DILAUDID(HYDROmorphone HCL) 2 MG TAB Dose: 2 MG ORAL EVERY 6 HOURS PRN Reason: PAIN Label Comments: MAY INCREASE FALL RISK Hydromorphone Hydrochloride 2 MG Oral Tablet (RxNorm): 871813 DILAUDID (HYDROmorphone HCL) NDC: 45702189360 LEVAQUIN(LEVOFLOXACIN) 250 MG TAB Dose: 250 MG ORAL DAILY Label Comments: Take 2 hrs before or after antacids, sucralfate, metal cations(iron), or multi-vitamins Levofloxacin 250 MG Oral Tablet [Levaquin] (RxNorm): 220387 LEVAQUIN (LEVOFLOXACIN) NDC: 11273578122 LOPRESSOR(METOPROLOL TARTRATE) 50 MG TAB Dose: 50 MG ORAL TWICE A DAY Label Comments: MAY INCREASE FALL RISK Metoprolol Tartrate 50 MG Oral Tablet [Lopressor] (RxNorm): 576533 LOPRESSOR (METOPROLOL TARTRATE) NDC: 90805722489 PERCOCET 10/325 MG(OxyCODONE/ACETAMINOPHEN) 1 TAB TAB Dose: 1 TAB ORAL 4 TIMES DAILY PRN Reason: PAIN Label Comments: MAX REC DOSE ACETAMINOPHEN: 4000MG/24HRS MAY INCREASE FALL RISK Acetaminophen 325 MG / Oxycodone Hydrochloride 10 MG Oral Tablet (RxNorm): 7753237 PERCOCET 10/325 MG (OxyCODONE/ACETAMINOPHEN) NDC: 44620341733 PROTONIX(PANTOPRAZOLE SOD) 40 MG TAB Dose: 40 MG ORAL 60 MIN BEFORE BKFST pantoprazole 40 MG Delayed Release Oral Tablet [Protonix] (RxNorm): 005925 PROTONIX (PANTOPRAZOLE SOD) NDC: 34642674770 SYMBICORT 80(BUDESONIDE/FORMOTEROL) 60 PUFF/6.9 GM INHALER Dose: 0.23 GM INHALED TWICE DAILY Label Comments: SHAKE WELL FOR 5 SECONDS PRIOR TO EACH USE. AUTOSUB FOR ADVAIR SYMBICORT 80 (BUDESONIDE/FORMOTEROL) NDC: 39565998518 CARAFATE(SUCRALFATE) 1 GM TAB Dose: 1 GM ORAL 4 TIMES DAILY Sucralfate 1000 MG Oral Tablet (RxNorm): 529055 CARAFATE (SUCRALFATE) NDC: 05524043759 DESYREL(TraZODone HCL) 100 MG TAB Dose: 300 MG ORAL AT BEDTIME Label Comments: MAY INCREASE FALL RISK Trazodone Hydrochloride 100 MG Oral Tablet (RxNorm): 395831 DESYREL (TraZODone HCL) NDC: 34083754068 DIOVAN(VALSARTAN) 320 MG TAB Dose: 320 MG ORAL DAILY valsartan 320 MG Oral Tablet [Diovan] (RxNorm): 662614 DIOVAN (VALSARTAN) NDC: 76373077344 VITAMIN B12 + COMPLEX(VITAMIN B COMPLEX) 1 TAB TAB Dose: 1 TAB ORAL DAILY AT BKFST VITAMIN B12 + COMPLEX (VITAMIN B COMPLEX) NDC: 93544835984 PERCOCET 10/325 MG(OxyCODONE/ACETAMINOPHEN) 1 TAB TAB Dose: 0 TAB ORAL Q4H PRN Reason: MODERATE TO SEVERE PAIN Rx Order Comments: Order filed UNV: Allergies/Duplicates/Interactions differ from division order technician Label Comments: MAX REC DOSE ACETAMINOPHEN: 4000MG/24HRS MAY INCREASE FALL RISK Special Dose Instructions: 1-2 TABS Acetaminophen 325 MG / Oxycodone Hydrochloride 10 MG Oral Tablet (RxNorm): 4585385 PERCOCET 10/325 MG (OxyCODONE/ACETAMINOPHEN) NDC: 38896847583 PERCOCET 10/325 MG(OxyCODONE/ACETAMINOPHEN) 1 TAB TAB Dose: 1 TAB ORAL NOW Rx Order Comments: Order filed UNV: Allergies/Duplicates/Interactions differ from division order technician Label Comments: MAX REC DOSE ACETAMINOPHEN: 4000MG/24HRS MAY INCREASE FALL RISK Acetaminophen 325 MG / Oxycodone Hydrochloride 10 MG Oral Tablet (RxNorm): 0106207 PERCOCET 10/325 MG (OxyCODONE/ACETAMINOPHEN) NDC: 82951014006 MYOFLEX 10% CRM(TROLAMINE SALICYLATE) 85 GM CREAM Dose: 1 GM TOPICALLY 3 TIMES A DAY Rx Order Comments: Order filed UNV: Dose Warnings differ from division order technician Special Dose Instructions: 1 APPLICATION TO RIGHT HIP AFTER USING THE HEATING PAD trolamine salicylate 100 MG/ML Topical Cream (RxNorm): 453974 MYOFLEX 10% CRM (TROLAMINE SALICYLATE) NDC: 42764169238 Discharge Medications - Medications that patient should continue to take. Review with physician Visit/Account #[id number] (September 03, 2014 12:43pm - September 08, 2014 10:22am) Medication Route Sig/Schedule Precondition/Indication Comments/Instructions Codes CARAFATE(SUCRALFATE) 1 GM TABLET Dose: 1 G ORAL 4 TIMES DAILY Sucralfate 1000 MG Oral Tablet (RxNorm): 066804 CARAFATE (SUCRALFATE) NDC: 44957589681 FLONASE(FLUTICASONE PROPIONATE) 16 GM NASAL SPRAY Dose: 2 INH IN NASAL DAILY Rx Instructions: *in each nostril* 120 ACTUAT Fluticasone propionate 0.05 MG/ACTUAT Nasal Inhaler (RxNorm): 153178 FLONASE (FLUTICASONE PROPIONATE) NDC: 21775611892 DIOVAN(VALSARTAN) 320 MG TAB Dose: 320 MG ORAL DAILY valsartan 320 MG Oral Tablet [Diovan] (RxNorm): 355643 DIOVAN (VALSARTAN) NDC: 22807081458 ESCITALOPRAM OXALATE(ESCITALOPRAM OXALATE) 20 MG TABLET Dose: 20 MG ORAL DAILY Escitalopram 20 MG Oral Tablet (RxNorm): 253057 ESCITALOPRAM OXALATE (ESCITALOPRAM OXALATE) NDC: 74342968528 ALBUTEROL SULF HFA(ALBUTEROL SULFATE) 8.5 GM PUFF Dose: 2 INH ORAL Q4H SHORTNESS OF BREATH/WHEEZING ALBUTEROL SULF HFA (ALBUTEROL SULFATE) NDC: 63615188406 Geritol Complete Tablet(IRON/VITAMIN B COMP W-C) 1 EACH TABLET Dose: 1 TAB ORAL DAILY AT [facility] Geritol Complete Tablet (IRON/VITAMIN B COMP W-C) NDC: 76681293141 Trazodone Hcl(TraZODone HCL) 150 MG TABLET Dose: 300 MG ORAL AT BEDTIME Trazodone Hydrochloride 150 MG Oral Tablet (RxNorm): 075855 Trazodone Hcl (TraZODone HCL) NDC: 43625418792 Cymbalta(DULoxetine HCL) 30 MG CAP Dose: 30 MG ORAL DAILY duloxetine 30 MG Delayed Release Oral Capsule [Cymbalta] (RxNorm): 628493 Cymbalta (DULoxetine HCL) NDC: 26836225117 LOPRESSOR(METOPROLOL TARTRATE) 50 MG TABLET Dose: 50 MG ORAL TWICE A DAY Metoprolol Tartrate 50 MG Oral Tablet [Lopressor] (RxNorm): 384887 LOPRESSOR (METOPROLOL TARTRATE) NDC: 34080956330 Gabapentin(GABAPENTIN) 100 MG CAP Dose: 100 MG ORAL 3 TIMES A DAY Gabapentin (GABAPENTIN) NDC: 00356345424 TYLENOL(ACETAMINOPHEN) 500 MG TAB Dose: 1000 MG ORAL EVERY 4 HOURS PAIN Rx Instructions: 500 - 1000 MG Acetaminophen 500 MG Oral Tablet [Mapap] (RxNorm): 356680 TYLENOL (ACETAMINOPHEN) NDC: 90972617671 ADVAIR DISKUS 50-100(SALMETEROL/FLUTICASONE) 14 DOSE PUFF Dose: 1 DOSE INHALED TWICE A DAY ADVAIR DISKUS 50-100 (SALMETEROL/FLUTICASONE) NDC: 99745370948 Lipitor(ATORVASTATIN) 20 MG TAB Dose: 20 MG ORAL AT BEDTIME atorvastatin 20 MG Oral Tablet [Lipitor] (RxNorm): 001216 Lipitor (ATORVASTATIN) NDC: 68135172191 PROTONIX(PANTOPRAZOLE) 40 MG TAB Dose: 40 MG ORAL 60 MIN BEFORE BKFST pantoprazole 40 MG Delayed Release Oral Tablet [Protonix] (RxNorm): 039659 PROTONIX (PANTOPRAZOLE) NDC: 02551583829 TROLAMINE SALICYLATE(TROLAMINE SALICYLATE) 85 GM CREAM..G. Dose: 1 GM TOPICALLY 3 TIMES A DAY trolamine salicylate 100 MG/ML Topical Cream (RxNorm): 110408 TROLAMINE SALICYLATE (TROLAMINE SALICYLATE) NDC: 38676067768 NICOTROL INHALER(NICOTINE) 10 MG/CART INHALER Dose: 1 UNIT INHALED NEEDED SMOKING CESSATION 168 ACTUAT Nicotine 4 MG/ACTUAT Metered Dose Inhaler [Nicotrol Inhaler] ( RxNorm): 2404398 NICOTROL INHALER (NICOTINE) NDC: 70159681248 Dilaudid(HYDROmorphone HCL) 2 MG TAB Dose: 2 MG ORAL EVERY 6 HOURS PAIN Hydromorphone Hydrochloride 2 MG Oral Tablet (RxNorm): 777540 Dilaudid (HYDROmorphone HCL) NDC: 14520298044 Endocet 10-325 Mg Tablet(OxyCODONE HCL/ACETAMINOPHEN) 1 TAB TAB Dose: 0 TAB ORAL Q4H MODERATE TO SEVERE PAIN Acetaminophen 325 MG / Oxycodone Hydrochloride 10 MG Oral Tablet (RxNorm): 0629588 Endocet 10-325 Mg Tablet (OxyCODONE HCL/ACETAMINOPHEN) NDC: 74447926388 History Of Encounters Encounters Visit/Account #[id number] (September 03, 2014 12:43pm - September 08, 2014 10:22am) Account Status Physican Of Record Reason For Visit Visit Diagnosis Start Date/Time Stop Date/Time IN JASBIR BAÑUELOS MD AVM OF DUODENUM,AQUIRED WITH HEMORRHAGE Not Available September 03, 2014 12:43pm Sep 08, 2014 10:22am History of Procedures Procedure List No procedures recorded. Discharge Instructions Discharge Instructions Visit/Account #[id number] (September 03, 2014 12:43pm - September 08, 2014 10:22am) DISCHARGE INSTRUCTIONS Physician Documentation PROVIDER INSTRUCTIONS Discharge Diet Regular Discharge Activity/Weight Bearing Status Full weight bearing Activity as tolerated Equipment/Supplies Walker Comfort Management See discharge medication list Bowel Care Read & follow "Guidelines for Managing Constipation" General Information: Do not take or discontinue any medications (prescription or [id number]) except on the advice of the physician or pharmacist. If you have any questions or concerns regarding the tests that you had done at the hospital or if you have any results that are pending, please contact your provider. If no follow-up appointment has been scheduled, please call your primary care physician for an appointment on the next business day. If you are expecting a follow-up phone call by a [facility] staff member, please have your medications and discharge instructions ready to review during the phone call. This phone call will occur 2 to 4 days after discharge. REASON TO CALL PROVIDER Notify Physician if: You have the following: - temperature greater than 101.5 degrees Fahrenheit - uncontrolled pain - persistent nausea/vomiting - any questions or concerns FOLLOW UP APPOINTMENTS Follow Up With Dr Madden check in at on September 21 at 1045 for 11am appt. Bring list of meds or bottles. (If lab needed come in at 9 for that) , Fax No appt needed for Dr Adelfo Wells or Dr Dow [facility] for assisted, PT and OT Caregivers for bathing and home help Therapy Appointment [facility] to provide assisted and home therapy. A nurse will call to set up a time to see you at home . 09/08. If you have questions for Home Health please call [phone]. NURSING & THERAPY INSTRUCTIONS Occupational Therapy Use your equipment for dressing to observe hip precautions - no bending forward past 90 degrees, crossing or rotationg legs. Have someone with you during walking, standing and transfers. Use the bench and sit to shower.. Do your arm exercises everyday. Take Care! Asya Moreno,OTR/L Physical Therapy Continue to do your leg exercises 1-2 times per day. Always have someone with you and use your walker during transfers and with walking for safety. Remember your hip precautions: No bending, crossing, or rotating. Good [place] at home! Adolfo Durham CPTA Social History Social History No Social History Data. Immunizations Immunizations Patient Unit Number: [id number] Immunizations No immunizations recorded.
--- OUTSIDE RECORDS SUMMARY | 2018-02-04 14:44 | XMS REPORT | Continuity Of Care Document ---
Author Author [facility] Organization [facility] Address [address] [place] [address] Phone Care Team Providers Care Orthodontic Treatment Coordinator Name Role Phone SHANTEL ROMERO, BALAJI Hamilton CP Results Lab Results Visit/Account #[id number] (December 21, 2015 4:48pm - December 21, 2015 10: 04pm) Test Result Date/Time 89112-8: COMPLETE BLOOD COUNT WITH DIFF WHITE BLOOD COUNT(4.0-11.0 10E3/UL) 8.1 10E3/UL December 21, 2015 5:05pm RED BLOOD COUNT(4.50-5.90 10E6/UL) 4.84 10E6/UL December 21, 2015 5:05pm HEMOGLOBIN(13.5-17.5 G/DL) 16.0 G/DL December 21, 2015 5:05pm HEMATOCRIT(41.0-53.0 %) 46.5 % December 21, 2015 5:05pm MEAN CORPUSCULAR VOLUME(82.0-100.0 FL) 96.1 FL December 21, 2015 5:05pm 33477-4: MEAN CORPUSCULAR HEMOGLOBIN(26.0-34.0 PG) 33.1 PG December 21, 2015 5:05pm MEAN CORPUSCULAR HGB CONC(31.5-36.5 G/DL) 34.4 G/DL December 21, 2015 5:05pm RED CELL DISTRIBUTION WIDTH(11.5-14.5 %) 13.3 % December 21, 2015 5:05pm 777-3: PLATELET COUNT(150-450 10E3/UL) 190 10E3/UL December 21, 2015 5:05pm MEAN PLATELET VOLUME(8.2-12.4 FL) 9.1 FL December 21, 2015 5:05pm 770-8: NEUTROPHILS % (AUTO)(40-70 %) 63 % December 21, 2015 5:05pm LYMPHOCYTES % (AUTO)(15-45 %) 26 % December 21, 2015 5:05pm 5905-5: MONOCYTES % (AUTO)(2-10 %) 9 % December 21, 2015 5:05pm 713-8: EOSINOPHILS % (AUTO)(0-6 %) 1 % December 21, 2015 5:05pm 706-2: BASOPHILS % (AUTO)(0-1 %) 0 % December 21, 2015 5:05pm 31606-6: IMMATURE GRANS % (AUTO)(0-0 %) 0 % December 21, 2015 5:05pm NUCLEATED RBCS (AUTO)(0-0 %) 0 % December 21, 2015 5:05pm 751-8: NEUTROPHILS # (AUTO)(2.5-7.5 10E3/UL) 5.1 10E3/UL December 21, 2015 5:05pm 74682-0: LYMPHOCYTES # (AUTO)(1.0-4.0 10E3/UL) 2.1 10E3/UL December 21, 2015 5:05pm 742-7: MONOCYTES # (AUTO)(0.2-0.8 10E3/UL) 0.7 10E3/UL December 21, 2015 5:05pm 711-2: EOSINOPHILS # (AUTO)(0.0-0.4 10E3/UL) 0.1 10E3/UL December 21, 2015 5:05pm 704-7: BASOPHILS # (AUTO)(0.0-0.2 10E3/UL) 0.0 10E3/UL December 21, 2015 5:05pm IMMATURE GRANS # (AUTO)(0.0-0.0 10E3/UL) 0.0 10E3/UL December 21, 2015 5:05pm DIFF TYPE AUTOMATED December 21, 2015 5:05pm 36384-4: PROTHROMBIN TIME WITH INR PROTHROMBIN TIME(12.1-14.0 SEC) 12.5 SEC December 21, 2015 5:05pm 56996-9: INR 0.93 Result Comments: INR reference interval applies to patients on anticoagulant therapy. Suggested INR therapeutic range for oral anticoagulant therapy: (Stabilized anticoagulated patients) Routine Therapy: 2.0 to 3.0 Recurrent Myocardial Infarction: 2.5 to 3.5 Mechanical Prosthetic Valves: 2.5 to 3.5 December 21, 2015 5:05pm PARTIAL THROMBOPLASTIN TIME PARTIAL THROMBOPLASTIN TIME(22.2-37.4 SEC) 25.5 SEC December 21, 2015 5:05pm 60904-3: COMPLETE METABOLIC PROFILE GLUCOSE(70-110 MG/DL) 111 MG/DL December 21, 2015 5:05pm BLOOD UREA NITROGEN(6-20 MG/DL) 20 MG/DL December 21, 2015 5:05pm CREATININE(0.50-1.20 MG/DL) 0.80 MG/DL December 21, 2015 5:05pm 95057-9: EST GLOMERULAR FILTRATION RATE(Greater than or equal to 60) Greater than or equal to 60 Result Comments: If the patient is of -[place] descent/extraction multiply the eGFR value by 1.212 to obtain the actual eGFR. >=60 mg/dL Normal 30-59 mg/dL Moderate Kidney Disease 15-29 mg/dL Severe Kidney Disease <15 mg/dL Kidney Failure December 21, 2015 5:05pm BUN CREATININE RATIO(10.0-20.0 RATIO) 25.0 RATIO December 21, 2015 5:05pm SODIUM(135-145 MMOL/L) 137 MMOL/L December 21, 2015 5:05pm POTASSIUM(3.6-5.0 MMOL/L) 3.7 MMOL/L December 21, 2015 5:05pm CHLORIDE(101-111 MMOL/L) 106 MMOL/L December 21, 2015 5:05pm CO2(21-31 MMOL/L) 23 MMOL/L December 21, 2015 5:05pm ANION GAP(8-18) 12 December 21, 2015 5:05pm OSMO CALCULATED(270.0-290.0) 277.1 December 21, 2015 5:05pm CALCIUM(8.5-10.5 MG/DL) 9.0 MG/DL December 21, 2015 5:05pm BILIRUBIN,TOTAL(0.1-1.2 MG/DL) 0.9 MG/DL December 21, 2015 5:05pm ALKALINE PHOSPHATASE(42-121 IU/L) 55 IU/L December 21, 2015 5:05pm ASPARTATE AMINO TRANSFERASE(10-42 IU/L) 24 IU/L December 21, 2015 5:05pm ALANINE AMINOTRANSFERASE(10-60 IU/L) 18 IU/L December 21, 2015 5:05pm TOTAL PROTEIN(6.4-8.2 G/DL) 6.5 G/DL December 21, 2015 5:05pm ALBUMIN(3.5-5.5 G/DL) 3.8 G/DL December 21, 2015 5:05pm GLOBULIN(2.4-3.6) 2.7 December 21, 2015 5:05pm ALBUMIN/GLOBULIN RATIO(0.9-1.8 RATIO) 1.4 RATIO December 21, 2015 5:05pm 99917-0: CARDIAC TROPONIN I 30646-8: CARDIAC TROPONIN I(0.01-0.04 NG/ML) 0.01 NG/ML Result Comments: REFERENCE RANGES: NEGATIVE < 0.04 NG/ML POSSIBLE MYCARDIAL INVOLVEMENT >/=0.04 NG/ML INTERPRET TROPONIN I RESULT IN LIGHT OF THE TOTAL CLINICAL PRESENTATION INCLUDING CLINICAL HISTORY. ANY CONDITION RESULTING IN MYOCARDIAL INJURY CAN POTENTIALLY ELEVATE TROPONIN I LEVELS ABOVE EXPECTED NORMAL RANGES. NOTE NEW REFERENCE RANGE December 21, 2015 5:05pm Allergies and Adverse Reactions Allergies and Adverse Reactions Patient Unit Number: [id number] Agent Type Reaction Severity Status METOCLOPRAMIDE HCL Drug Allergy Unknown Moderate Active KETOROLAC TROMETHAMINE Drug Allergy Unknown Unknown Active NSAIDS (NON-STEROIDAL ANTI-INFLAMMA Drug Adverse Reaction Unknown Moderate Active PROCHLORPERAZINE Drug Allergy Unknown Mild Active MORPHINE Drug Allergy HIVES Severe Active Problem List Problem List Visit/Account #[id number] (December 21, 2015 4:48pm - December 21, 2015 10: 04pm) Acute Problems: Code/Condition Comments Documented Start Date Documented Resolved Date Code (s) COPD with acute exacerbation ICD10: J44.1 Chronic obstructive pulmonary disease with acute exacerbation ICD9: 491.21 Chronic obstructive pulmonary disease with acute exacerbation SNOMED: 941320619 Chronic obstructive pulmonary disease with acute exacerbation Plan of Care Plan Of Care Visit/Account #[id number] (December 21, 2015 4:48pm - December 21, 2015 10: 04pm) Patient Instructions Take prednisone and doxycyline as directed Use duoneb nebulizers every 4 hours as needed for cough, shortness of breath Call your primary care physician for follow-up later this week Return to the ER for any worsening symptoms Vital Signs Vital Signs Visit/Account #[id number] (December 21, 2015 4:48pm - December 21, 2015 10: 04pm) Sign First Result Last Result Code(s) Temperature in Fahrenheit Temperature (Fahrenheit): 97.0 [degF] On December 21, 2015 4:46pm Temperature (Fahrenheit): 98.3 [degF] On December 21, 2015 10:01pm 8310-5 Body Temperature Weight in Kilograms Weight (Kilograms): 67.5 kg On December 21, 2015 4:46pm 3141-9 Weight Measured 08202-4 Body weight measured in kilograms Functional Status Functional and Cognitive Status No Functional Status Data Medications Inpatient/Ordered Medications - Medications administered during hospital visit Visit/Account #[id number] (December 21, 2015 4:48pm - December 21, 2015 10: 04pm) Medication Route Sig/Schedule Precondition/Indication Comments/Instructions Codes NITROQUICK(NITROGLYCERIN) 0.4 MG/TAB TAB Dose: 10 MG SUBLINGUAL .STK-MED Nitroglycerin 0.4 MG Sublingual Tablet [Nitrostat] (RxNorm): 945426 NITROQUICK (NITROGLYCERIN) NDC: 13345669978 ASPIRIN 324 MG TAB Dose: 324 MG Route .STK-MED Aspirin 81 MG Chewable Tablet (RxNorm): 666998 (ASPIRIN) NDC: 67301759660 NITROQUICK(NITROGLYCERIN) 0.4 MG/TAB TAB Dose: 1 TAB SUBLINGUAL NOW Label Comments: *DOSE 1* Do NOT give until approved by physician. Give every 3-5 minutes if needed for ongoing symptons. Max of 3 doses. Do NOT give unless: Heart rate 50-100 beats per minute SBP is greater than 90 mmHg and/or no lower than 20 mmHg below baseline Do NOT give if: inferior [place] or RV infarction recent phosphodesterase inhibito use (e.g. Viagra, Levitra, Revatio) within last 24 hours or Cialis within last 48 hours. Nitroglycerin 0.4 MG Sublingual Tablet [Nitrostat] (RxNorm): 871240 NITROQUICK (NITROGLYCERIN) NDC: 28667841861 VENTOLIN 0.5% NEB(ALBUTEROL SULF) 2.5 MG/0.5 ML INHALER Dose: 1 ML INHALED NOW Albuterol 1 MG/ML Inhalant Solution (RxNorm): 044810 VENTOLIN 0.5% NEB (ALBUTEROL SULF) NDC: 28450677391 ATROVENT 0.02% NEB(IPRATROPIUM BROMIDE) 0.5 MG/2.5 ML SOLUTION Dose: 2.5 ML INHALED NOW Ipratropium [place] 0.2 MG/ML Inhalant Solution (RxNorm): 610672 ATROVENT 0.02% NEB (IPRATROPIUM BROMIDE) NDC: 69258829913 MORPHINE SULFATE 4 MG/ML INJECTION Dose: 1 ML INTRAVEN NOW 1 ML Morphine Sulfate 4 MG/ML Cartridge (RxNorm): 2024161 (MORPHINE SULFATE) NDC: 08952691983 TYLENOL(ACETAMINOPHEN) 500 MG TAB Dose: 1000 MG ORAL NOW Acetaminophen 500 MG Oral Tablet [Mapap] (RxNorm): 991345 TYLENOL (ACETAMINOPHEN) NDC: 65463180490 DILAUDID(HYDROmorphone HCL) 2 MG/ML INJECTION Dose: 0.5 ML INTRAVEN NOW 1 ML Hydromorphone Hydrochloride 2 MG/ML Cartridge (RxNorm): 7270917 DILAUDID (HYDROmorphone HCL) NDC: 97369682208 Solu-MEDROL INJ(MethylPREDNISolone SOD SUCC) 125 MG/2 ML INJECTION Dose: 2 ML INTRAVEN NOW Methylprednisolone 125 MG Injection [Solu-Medrol] (RxNorm): 2018876 Solu-MEDROL INJ (MethylPREDNISolone SOD SUCC) NDC: 73199787341 DILAUDID(HYDROmorphone HCL) 2 MG/ML INJECTION Dose: 0.5 ML INTRAVEN NOW 1 ML Hydromorphone Hydrochloride 2 MG/ML Cartridge (RxNorm): 0222034 DILAUDID (HYDROmorphone HCL) NDC: 68262047182 VIBRAMYCIN(DOXYCYCLINE HYCLATE) 100 MG CAP Dose: 100 MG ORAL NOW Label Comments: Give with 8 oz of water. Patient should sit in upright position for at least 30 minutes after administration to avoid esophageal ulceration. doxycycline hyclate 100 MG Oral Capsule (RxNorm): 2112281 VIBRAMYCIN (DOXYCYCLINE HYCLATE) NDC: 06226706674 Discharge Medications - Medications that patient should continue to take. Review with physician Visit/Account #[id number] (December 21, 2015 4:48pm - December 21, 2015 10: 04pm) Medication Route Sig/Schedule Precondition/Indication Comments/Instructions Codes Duoneb 2.5-0.5 Mg/3 Ml Soln(IPRATROPIUM/ALBUTEROL SULFATE) 3 ML AMPUL.NEB Dose: 3 ML INHALED EVERY 4 HRS WHILE AWAKE COUGH Albuterol 0.833 MG/ML / Ipratropium [place] 0.167 MG/ML Inhalant Solution ( RxNorm): 3511567 Duoneb 2.5-0.5 Mg/3 Ml Soln (IPRATROPIUM/ALBUTEROL SULFATE) NDC: 34329698191 CLONAZEPAM(ClonAZEPAM) 1 MG TABLET Dose: 1 MG ORAL TWICE A DAY ANXIETY Clonazepam 1 MG Oral Tablet (RxNorm): 197988 CLONAZEPAM (ClonAZEPAM) NDC: 95980024380 History Of Encounters Encounters Visit/Account #[id number] (December 21, 2015 4:48pm - December 21, 2015 10: 04pm) Account Status Physican Of Record Reason For Visit Visit Diagnosis Start Date/Time Stop Date/Time ER BALAJI FUNES MD CHEST PAIN Not Available Dec 21, 2015 4:48pm Dec 21, 2015 10:04pm History of Procedures Procedure List No procedures recorded. Discharge Instructions Discharge Instructions Visit/Account #[id number] (December 21, 2015 4:48pm - December 21, 2015 10: 04pm) DISCHARGE INSTRUCTIONS Physician Documentation Social History Social History No Social History Data. Immunizations Immunizations Patient Unit Number: [id number] Immunizations No immunizations recorded.
--- OUTSIDE RECORDS SUMMARY | 2018-02-04 14:44 | XMS REPORT | Continuity Of Care Document ---
Author Author [facility] Organization [facility] Address [address] [place] [address] Phone Care Team Providers Care Construction Person Name Role Phone UNASSIGNED, ED PHYSICIAN Unavailable Unavailable MESSI ROMERO, RICHARD Castro Unavailable MITRA STREETER DO PP DAVE JARVIS DO CP NIKITA ROMERO, NOÉ Dugan AT Results Lab Results Visit/Account #[id number] (June 24, 2016 8:14pm - June 25, 2016 8:35am) Test Result Date/Time COMPLETE BLOOD COUNT WITH DIFF WHITE BLOOD COUNT(4.0-11.0 10E3/UL) 11.6 10E3/UL June 24, 2016 8:44pm RED BLOOD COUNT(4.50-5.90 10E6/UL) 5.10 10E6/UL June 24, 2016 8:44pm HEMOGLOBIN(13.5-17.5 G/DL) 16.8 G/DL June 24, 2016 8:44pm HEMATOCRIT(41.0-53.0 %) 48.6 % June 24, 2016 8:44pm MEAN CORPUSCULAR VOLUME(82.0-100.0 FL) 95.3 FL June 24, 2016 8:44pm MEAN CORPUSCULAR HEMOGLOBIN(26.0-34.0 PG) 32.9 PG June 24, 2016 8:44pm MEAN CORPUSCULAR HGB CONC(31.5-36.5 G/DL) 34.6 G/DL June 24, 2016 8:44pm RED CELL DISTRIBUTION WIDTH(11.5-14.5 %) 12.8 % June 24, 2016 8:44pm 777-3: PLATELET COUNT(150-450 10E3/UL) 256 10E3/UL June 24, 2016 8:44pm MEAN PLATELET VOLUME(8.2-12.4 FL) 8.8 FL June 24, 2016 8:44pm NEUTROPHILS % (AUTO)(40-70 %) 69 % June 24, 2016 8:44pm LYMPHOCYTES % (AUTO)(15-45 %) 21 % June 24, 2016 8:44pm MONOCYTES % (AUTO)(2-10 %) 7 % June 24, 2016 8:44pm EOSINOPHILS % (AUTO)(0-6 %) 2 % June 24, 2016 8:44pm BASOPHILS % (AUTO)(0-1 %) 0 % June 24, 2016 8:44pm IMMATURE GRANS % (AUTO)(0-0 %) 0 % June 24, 2016 8:44pm NUCLEATED RBCS (AUTO)(0-0 %) 0 % June 24, 2016 8:44pm NEUTROPHILS # (AUTO)(2.5-7.5 10E3/UL) 8.0 10E3/UL June 24, 2016 8:44pm LYMPHOCYTES # (AUTO)(1.0-4.0 10E3/UL) 2.5 10E3/UL June 24, 2016 8:44pm MONOCYTES # (AUTO)(0.2-0.8 10E3/UL) 0.9 10E3/UL June 24, 2016 8:44pm EOSINOPHILS # (AUTO)(0.0-0.4 10E3/UL) 0.2 10E3/UL June 24, 2016 8:44pm BASOPHILS # (AUTO)(0.0-0.2 10E3/UL) 0.1 10E3/UL June 24, 2016 8:44pm IMMATURE GRANS # (AUTO)(0.0-0.0 10E3/UL) 0.0 10E3/UL June 24, 2016 8:44pm DIFF TYPE AUTOMATED June 24, 2016 8:44pm PROTHROMBIN TIME WITH INR PROTHROMBIN TIME(12.1-14.0 SEC) 12.1 SEC June 24, 2016 8:44pm 53379-7: INR 0.90 Result Comments: INR reference interval applies to patients on anticoagulant therapy. Suggested INR therapeutic range for oral anticoagulant therapy: (Stabilized anticoagulated patients) Routine Therapy: 2.0 to 3.0 Recurrent Myocardial Infarction: 2.5 to 3.5 Mechanical Prosthetic Valves: 2.5 to 3.5 June 24, 2016 8:44pm PARTIAL THROMBOPLASTIN TIME PARTIAL THROMBOPLASTIN TIME(22.2-37.4 SEC) 28.6 SEC June 24, 2016 8:44pm COMPLETE METABOLIC PROFILE GLUCOSE(70-110 MG/DL) 92 MG/DL June 24, 2016 8:44pm BLOOD UREA NITROGEN(6-20 MG/DL) 18 MG/DL June 24, 2016 8:44pm CREATININE(0.50-1.20 MG/DL) 0.85 MG/DL June 24, 2016 8:44pm EST GLOMERULAR FILTRATION RATE(Greater than or equal to 60) Greater than or equal to 60 Result Comments: If the patient is of -[place] descent/extraction multiply the eGFR value by 1.212 to obtain the actual eGFR. >=60 mg/dL Normal 30-59 mg/dL Moderate Kidney Disease 15-29 mg/dL Severe Kidney Disease <15 mg/dL Kidney Failure June 24, 2016 8:44pm BUN CREATININE RATIO(10.0-20.0 RATIO) 21.0 RATIO June 24, 2016 8:44pm SODIUM(135-145 MMOL/L) 135 MMOL/L June 24, 2016 8:44pm POTASSIUM(3.6-5.0 MMOL/L) 3.9 MMOL/L June 24, 2016 8:44pm CHLORIDE(101-111 MMOL/L) 105 MMOL/L June 24, 2016 8:44pm CO2(21-31 MMOL/L) 23 MMOL/L June 24, 2016 8:44pm ANION GAP(8-18) 11 June 24, 2016 8:44pm OSMO CALCULATED(270.0-290.0) 271.6 June 24, 2016 8:44pm CALCIUM(8.5-10.5 MG/DL) 9.0 MG/DL June 24, 2016 8:44pm BILIRUBIN,TOTAL(0.1-1.2 MG/DL) 0.2 MG/DL June 24, 2016 8:44pm ALKALINE PHOSPHATASE(42-121 IU/L) 77 IU/L June 24, 2016 8:44pm ASPARTATE AMINO TRANSFERASE(10-42 IU/L) 21 IU/L June 24, 2016 8:44pm ALANINE AMINOTRANSFERASE(10-60 IU/L) 22 IU/L June 24, 2016 8:44pm TOTAL PROTEIN(6.4-8.2 G/DL) 7.5 G/DL June 24, 2016 8:44pm ALBUMIN(3.5-5.5 G/DL) 4.2 G/DL June 24, 2016 8:44pm GLOBULIN(2.4-3.6) 3.3 June 24, 2016 8:44pm ALBUMIN/GLOBULIN RATIO(0.9-1.8 RATIO) 1.3 RATIO June 24, 2016 8:44pm CARDIAC TROPONIN I CARDIAC TROPONIN I(0.01-0.04 NG/ML) 0.01 NG/ML Result Comments: REFERENCE RANGES: NEGATIVE < 0.04 NG/ML POSSIBLE MYCARDIAL INVOLVEMENT >/=0.04 NG/ML INTERPRET TROPONIN I RESULT IN LIGHT OF THE TOTAL CLINICAL PRESENTATION INCLUDING CLINICAL HISTORY. ANY CONDITION RESULTING IN MYOCARDIAL INJURY CAN POTENTIALLY ELEVATE TROPONIN I LEVELS ABOVE EXPECTED NORMAL RANGES. NOTE NEW REFERENCE RANGE June 24, 2016 8:44pm ALCOHOL ALCOHOL(0.0-5.0 MG/DL) 58.0 MG/DL June 24, 2016 8:44pm DRUGS OF ABUSE, URINE OPIATE SCREEN,URINE(NEGATIVE) NEGATIVE June 24, 2016 9:00pm BARBITURATES SCREEN, URINE(NEGATIVE) NEGATIVE June 24, 2016 9:00pm AMPHETAMINE SCREEN,URINE(NEGATIVE) NEGATIVE June 24, 2016 9:00pm BENZODIAZEPINES SCREEN,URINE(NEGATIVE) NEGATIVE June 24, 2016 9:00pm COCAINE SCREEN, URINE(NEGATIVE) NEGATIVE June 24, 2016 9:00pm CANNABINOID SCREEN,URINE(NEGATIVE) NEGATIVE June 24, 2016 9:00pm Allergies and Adverse Reactions Allergies and Adverse Reactions Patient Unit Number: [id number] Agent Type Reaction Severity Status METOCLOPRAMIDE HCL Drug Allergy Unknown Moderate Active KETOROLAC TROMETHAMINE Drug Allergy Unknown Unknown Active NSAIDS (NON-STEROIDAL ANTI-INFLAMMA Drug Adverse Reaction Unknown Moderate Active PROCHLORPERAZINE Drug Allergy Unknown Mild Active MORPHINE Drug Allergy HIVES Severe Active Problem List Problem List Visit/Account #[id number] (June 24, 2016 8:14pm - June 25, 2016 8:35am) Acute Problems: Code/Condition Comments Documented Start Date Documented Resolved Date Code (s) Suicidal ideations ICD10: R45.851 Suicidal ideations SNOMED: 8386320 Suicidal ideation Patient Unit Number: [id number] Chronic Problems: Code/Condition Comments Documented Start Date Documented Resolved Date Code (s) Alcohol intoxication July 21, 2013 ICD9: 305.00 Alcohol intoxication SNOMED: 26249462 Alcoholic intoxication Plan of Care Plan Of Care Visit/Account #[id number] (June 24, 2016 8:14pm - June 25, 2016 8:35am) Patient Instructions Instructions [facility] Drug/Alcohol Use Resources for Recovery from Drug/Alcohol Use [facility] [address] [place] [address] Website: [email or web address] Email: [email or web address] [facility] offers Detoxification services, Residential services, Outpatient services, and Assessments. We can be reached at the phone number listed 30/10. [facility] [address] [place] [address] Website: [email or web address] Email: [email or web address] Open 7a-9p Sunday-Sunday Open 1p-9p Sunday Closed Sunday [facility] is a drop-in center that offers support and events in a sober environment during the days/times listed. Alcoholics Anonymous (AA) Meetings in [place] [facility] [address] [place] [address] Website: www.PRX [facility] and [facility]ing Area (For those who have been affected by someone else's drinking) , Website: www.kydsgf-uw-jttd.[employer] Email: [email or web address].[email or web address] Narcotics Anonymous (NA) Meetings in [place] [facility] [address] [place] [address] Website: [email or web address] Email: [email or web address] Vital Signs Vital Signs Visit/Account #[id number] (June 24, 2016 8:14pm - June 25, 2016 8:35am) Sign First Result Last Result Code(s) Temperature in Fahrenheit Temperature (Fahrenheit): 97.5 [degF] On June 24, 2016 8:11pm 8310-5 Body Temperature Weight in Kilograms Weight (Kilograms): 64 kg On June 24, 2016 8:11pm 3141-9 Weight Measured Functional Status Functional and Cognitive Status No Functional Status Data Medications Inpatient/Ordered Medications - Medications administered during hospital visit Visit/Account #[id number] (June 24, 2016 8:14pm - June 25, 2016 8:35am) Medication Route Sig/Schedule Precondition/Indication Comments/Instructions Codes KETALAR INJ(KETAMINE HCL IN 0.9 % NACL) 50 MG/5 ML INJECTION Dose: 0.6 ML INTRAVEN NOW KETALAR INJ (KETAMINE HCL IN 0.9 % NACL) NDC: 92271680016 KETALAR INJ(KETAMINE HCL IN 0.9 % NACL) 50 MG/5 ML INJECTION Dose: 0.6 ML INTRAVEN NOW KETALAR INJ (KETAMINE HCL IN 0.9 % NACL) NDC: 17279701080 History Of Encounters Encounters Visit/Account #[id number] (June 24, 2016 8:14pm - June 25, 2016 8:35am) Account Status Physican Of Record Reason For Visit Visit Diagnosis Start Date/Time Stop Date/Time KEIRA JARVIS DO CHEST PAIN; SUICIDAL Not Available Jun 24, 2016 8:14pm Jun 25, 2016 8:35am Racheal SHELTON MD CHEST PAIN; SUICIDAL Not Available Jun 24, 2016 9:30pm Jun 25, 2016 8:35am History of Procedures Procedure List No procedures recorded. Discharge Instructions Discharge Instructions Visit/Account #[id number] (June 24, 2016 8:14pm - June 25, 2016 8:35am) DISCHARGE INSTRUCTIONS Physician Documentation Social History Social History No Social History Data. Immunizations Immunizations Patient Unit Number: [id number] Immunizations No immunizations recorded.
--- OUTSIDE RECORDS SUMMARY | 2018-02-04 14:44 | XMS REPORT | Continuity Of Care Document ---
Author Author [facility] Organization [facility] Address [address] [place] [address] Phone Care Team Providers Care Block Hand Name Role Phone MERLY ROMERO, RICHARD Hamilton Unavailable UNASSIGNED, ED PHYSICIAN Unavailable Unavailable NOÉ SHELTON MD CP Results Results No results recorded. Allergies and Adverse Reactions Allergies and Adverse Reactions Patient Unit Number: [id number] Agent Type Reaction Severity Status METOCLOPRAMIDE HCL Drug Allergy Unknown Moderate Active KETOROLAC TROMETHAMINE Drug Allergy Unknown Unknown Active NSAIDS (NON-STEROIDAL ANTI-INFLAMMA Drug Adverse Reaction Unknown Moderate Active PROCHLORPERAZINE Drug Allergy Unknown Mild Active Problem List Problem List Visit/Account #[id number] (May 19, 2015 1:37am - May 19, 2015 2: 21am) Acute Problems: Code/Condition Comments Documented Start Date Documented Resolved Date Code (s) Acute right hip pain ICD10: M25.551 Acute pain of right hip ICD9: 719.45 Acute pain of right hip SNOMED: 77508153 Acute pain of right hip Plan of Care Plan Of Care Visit/Account #[id number] (May 19, 2015 1:37am - May 19, 2015 2: 21am) Patient Instructions Take your pain medications as previously prescribed. Return if symptoms worsen, if new symptoms develop, or for any other concerns. Ice or heat to area of pain for 20 minutes at a time at least twice a day. Vital Signs Vital Signs Visit/Account #[id number] (May 19, 2015 1:37am - May 19, 2015 2: 21am) Sign First Result Last Result Code(s) Body Mass Index Body Mass Index (BMI): 19.0 kg/m2 On May 19, 2015 1:36am 73990-6 BMI (body mass index) Body Mass Index as a Calculated Value 19.2 kg/m2 On May 19, 2015 1:36am 25131-2 BMI (body mass index) Body Surface Area as a Calculated Value 1.88 m2 On May 19, 2015 1:36am 3140-1 BSA (body surface area) Height (Feet/Inches) 6 [ft_us] 1 [in_us] On May 19, 2015 1:36am Temperature in Fahrenheit Temperature (Fahrenheit): 98.0 [degF] On May 19, 2015 1:36am Temperature (Fahrenheit): 98 [degF] On May 19, 2015 2:20am 8310-5 Body Temperature Weight in Kilograms Weight (Kilograms): 65.91 kg On May 19, 2015 1:36am 3141-9 Weight Measured 07951-9 Body weight measured in kilograms Functional Status Functional and Cognitive Status No Functional Status Data Medications Inpatient/Ordered Medications - Medications administered during hospital visit Visit/Account #[id number] (May 19, 2015 1:37am - May 19, 2015 2: 21am) Medication Route Sig/Schedule Precondition/Indication Comments/Instructions Codes NORFLEX INJ(ORPHENADRINE CITRATE) 60 MG/2 ML INJECTION Dose: 2 ML INTRAMUSC NOW Orphenadrine Citrate 30 MG/ML Injectable Solution (RxNorm): 013963 NORFLEX INJ (ORPHENADRINE CITRATE) [facility]: [id number] History Of Encounters Encounters Visit/Account #[id number] (May 19, 2015 1:37am - May 19, 2015 2: 21am) Account Status Physican Of Record Reason For Visit Visit Diagnosis Start Date/Time Stop Date/Time ER NOÉ SHELTON MD RIGHT HIP PAIN Not Available May 19, 2015 1:37am May 19, 2015 2:21am History of Procedures Procedure List No procedures recorded. Discharge Instructions Discharge Instructions Visit/Account #[id number] (May 19, 2015 1:37am - May 19, 2015 2: 21am) DISCHARGE INSTRUCTIONS Physician Documentation Social History Social History No Social History Data. Immunizations Immunizations Patient Unit Number: [id number] Immunizations No immunizations recorded.
--- OUTSIDE RECORDS SUMMARY | 2018-02-04 14:44 | XMS REPORT | Continuity Of Care Document ---
Author Author [facility] Organization [facility] Address [address] [place] [address] Phone Care Team Providers Care Metalsmith Apprentice Name Role Phone UNASSIGNED, ED PHYSICIAN Unavailable Unavailable WEI SMITH MD CP Results Lab Results Visit/Account #[id number] (January 21, 2016 6:39pm - January 21, 2016 8:36pm) Test Result Date/Time POCGL POCGL(70-110 MG/DL) 98 MG/DL January 21, 2016 6:42pm POC PT/INR POC PROTHROMBIN TIME(11.0-13.6) 11.8 January 21, 2016 6:45pm POC INR 1.0 Result Comments: INR reference interval applies to patients on anticoagulant therapy. Suggested INR therapeutic range for oral anticoagulant therapy: (Stabilized anticoagulated patients) Routine Therapy: 2.0 to 3.0 Recurrent Myocardial Infarction: 2.5 to 3.5 Mechanical Prosthetic Valves: 2.5 to 3.5 January 21, 2016 6:45pm 17273-1: COMPLETE BLOOD COUNT WITH DIFF WHITE BLOOD COUNT(4.0-11.0 10E3/UL) 8.4 10E3/UL January 21, 2016 7:51pm RED BLOOD COUNT(4.50-5.90 10E6/UL) 4.89 10E6/UL January 21, 2016 7:51pm HEMOGLOBIN(13.5-17.5 G/DL) 16.5 G/DL January 21, 2016 7:51pm HEMATOCRIT(41.0-53.0 %) 46.5 % January 21, 2016 7:51pm MEAN CORPUSCULAR VOLUME(82.0-100.0 FL) 95.1 FL January 21, 2016 7:51pm 80342-5: MEAN CORPUSCULAR HEMOGLOBIN(26.0-34.0 PG) 33.7 PG January 21, 2016 7:51pm MEAN CORPUSCULAR HGB CONC(31.5-36.5 G/DL) 35.5 G/DL January 21, 2016 7:51pm RED CELL DISTRIBUTION WIDTH(11.5-14.5 %) 12.8 % January 21, 2016 7:51pm 777-3: PLATELET COUNT(150-450 10E3/UL) 184 10E3/UL January 21, 2016 7:51pm MEAN PLATELET VOLUME(8.2-12.4 FL) 9.2 FL January 21, 2016 7:51pm 770-8: NEUTROPHILS % (AUTO)(40-70 %) 59 % January 21, 2016 7:51pm LYMPHOCYTES % (AUTO)(15-45 %) 30 % January 21, 2016 7:51pm 5905-5: MONOCYTES % (AUTO)(2-10 %) 8 % January 21, 2016 7:51pm 713-8: EOSINOPHILS % (AUTO)(0-6 %) 1 % January 21, 2016 7:51pm 706-2: BASOPHILS % (AUTO)(0-1 %) 1 % January 21, 2016 7:51pm 88026-3: IMMATURE GRANS % (AUTO)(0-0 %) 0 % January 21, 2016 7:51pm NUCLEATED RBCS (AUTO)(0-0 %) 0 % January 21, 2016 7:51pm 751-8: NEUTROPHILS # (AUTO)(2.5-7.5 10E3/UL) 5.0 10E3/UL January 21, 2016 7:51pm 88688-2: LYMPHOCYTES # (AUTO)(1.0-4.0 10E3/UL) 2.5 10E3/UL January 21, 2016 7:51pm 742-7: MONOCYTES # (AUTO)(0.2-0.8 10E3/UL) 0.7 10E3/UL January 21, 2016 7:51pm 711-2: EOSINOPHILS # (AUTO)(0.0-0.4 10E3/UL) 0.1 10E3/UL January 21, 2016 7:51pm 704-7: BASOPHILS # (AUTO)(0.0-0.2 10E3/UL) 0.0 10E3/UL January 21, 2016 7:51pm IMMATURE GRANS # (AUTO)(0.0-0.0 10E3/UL) 0.0 10E3/UL January 21, 2016 7:51pm DIFF TYPE AUTOMATED January 21, 2016 7:51pm 48522-7: ERYTHROCYTE SEDIMENTATION RATE 76795-3: ERYTHROCYTE SEDIMENTATION RATE(0-15 MM/HR) 3 MM/HR January 21, 2016 7:51pm PARTIAL THROMBOPLASTIN TIME PARTIAL THROMBOPLASTIN TIME(22.2-37.4 SEC) 23.5 SEC January 21, 2016 7:31pm 12027-9: COMPLETE METABOLIC PROFILE GLUCOSE(70-110 MG/DL) 77 MG/DL January 21, 2016 7:51pm BLOOD UREA NITROGEN(6-20 MG/DL) 19 MG/DL January 21, 2016 7:51pm CREATININE(0.50-1.20 MG/DL) 0.89 MG/DL January 21, 2016 7:51pm 79769-9: EST GLOMERULAR FILTRATION RATE(Greater than or equal to 60) Greater than or equal to 60 Result Comments: If the patient is of -Vietnamese descent/extraction multiply the eGFR value by 1.212 to obtain the actual eGFR. >=60 mg/dL Normal 30-59 mg/dL Moderate Kidney Disease 15-29 mg/dL Severe Kidney Disease <15 mg/dL Kidney Failure January 21, 2016 7:51pm BUN CREATININE RATIO(10.0-20.0 RATIO) 21.0 RATIO January 21, 2016 7:51pm SODIUM(135-145 MMOL/L) 140 MMOL/L January 21, 2016 7:51pm POTASSIUM(3.6-5.0 MMOL/L) 3.3 MMOL/L January 21, 2016 7:51pm CHLORIDE(101-111 MMOL/L) 106 MMOL/L January 21, 2016 7:51pm CO2(21-31 MMOL/L) 22 MMOL/L January 21, 2016 7:51pm ANION GAP(8-18) 15 January 21, 2016 7:51pm OSMO CALCULATED(270.0-290.0) 280.5 January 21, 2016 7:51pm CALCIUM(8.5-10.5 MG/DL) 9.1 MG/DL January 21, 2016 7:51pm BILIRUBIN,TOTAL(0.1-1.2 MG/DL) 0.7 MG/DL January 21, 2016 7:51pm ALKALINE PHOSPHATASE(42-121 IU/L) 63 IU/L January 21, 2016 7:51pm ASPARTATE AMINO TRANSFERASE(10-42 IU/L) 20 IU/L January 21, 2016 7:51pm ALANINE AMINOTRANSFERASE(10-60 IU/L) 16 IU/L January 21, 2016 7:51pm TOTAL PROTEIN(6.4-8.2 G/DL) 6.4 G/DL January 21, 2016 7:51pm ALBUMIN(3.5-5.5 G/DL) 3.6 G/DL January 21, 2016 7:51pm GLOBULIN(2.4-3.6) 2.8 January 21, 2016 7:51pm ALBUMIN/GLOBULIN RATIO(0.9-1.8 RATIO) 1.3 RATIO January 21, 2016 7:51pm ALCOHOL ALCOHOL(0.0-5.0 MG/DL) 231.9 MG/DL January 21, 2016 7:51pm Allergies and Adverse Reactions Allergies and Adverse Reactions Patient Unit Number: [id number] Agent Type Reaction Severity Status METOCLOPRAMIDE HCL Drug Allergy Unknown Moderate Active KETOROLAC TROMETHAMINE Drug Allergy Unknown Unknown Active NSAIDS (NON-STEROIDAL ANTI-INFLAMMA Drug Adverse Reaction Unknown Moderate Active PROCHLORPERAZINE Drug Allergy Unknown Mild Active MORPHINE Drug Allergy HIVES Severe Active Problem List Problem List Visit/Account #[id number] (January 21, 2016 6:39pm - January 21, 2016 8:36pm) Acute Problems: Code/Condition Comments Documented Start Date Documented Resolved Date Code (s) Alcohol intoxication ICD10: F10.129 Alcoholic intoxication ICD9: 305.00 Alcoholic intoxication SNOMED: 55559076 Alcoholic intoxication Plan of Care Plan Of Care Visit/Account #[id number] (January 21, 2016 6:39pm - January 21, 2016 8:36pm) Patient Instructions f/u with [facility] if wants to quit drinking and needs help. take adequate rest. return to ed if has any concern. f/u with pcp on sunday. Take pain meds as needed. do not take pain meds along with alcohol and do not drive or operate machinery while taking meds. Vital Signs Vital Signs Visit/Account #[id number] (January 21, 2016 6:39pm - January 21, 2016 8:36pm) Sign First Result Last Result Code(s) Body Mass Index Body Mass Index (BMI): 15.0 kg/m2 On January 21, 2016 6:37pm 53914-6 BMI (body mass index) Body Mass Index as a Calculated Value 19.8 kg/m2 On January 21, 2016 6:37pm 50264-7 BMI (body mass index) Body Surface Area as a Calculated Value 1.86 m2 On January 21, 2016 6:37pm 3140-1 BSA (body surface area) Height (Feet/Inches) 6 [ft_us] On January 21, 2016 6:37pm Temperature in Fahrenheit Temperature (Fahrenheit): 98.0 [degF] On January 21, 2016 6:37pm Temperature (Fahrenheit): 97.9 [degF] On January 21, 2016 8:34pm 8310-5 Body Temperature Weight in Kilograms Weight (Kilograms): 66.1 kg On January 21, 2016 6:37pm 3141-9 Weight Measured 91109-2 Body weight measured in kilograms Functional Status Functional and Cognitive Status No Functional Status Data Medications Inpatient/Ordered Medications - Medications administered during hospital visit Visit/Account #[id number] (January 21, 2016 6:39pm - January 21, 2016 8:36pm) Medication Route Sig/Schedule Precondition/Indication Comments/Instructions Codes IV Medication Carriers: NORMAL SALINE(SODIUM CHLORIDE) 1000 ML INJECTION Dose: 1000 ML INTRAVEN .Q1H (Rate: 1000 MLS/HR Duration: 1 HR) Carriers: Sodium Chloride 0.154 MEQ/ML Injectable Solution (RxNorm): 515955 NORMAL SALINE (SODIUM CHLORIDE) [facility]: [id number] Discharge Medications - Medications that patient should continue to take. Review with physician Visit/Account #[id number] (January 21, 2016 6:39pm - January 21, 2016 8:36pm) Medication Route Sig/Schedule Precondition/Indication Comments/Instructions Codes NORCO 5-325 TABLET(HYDROcodone BIT/ACETAMINOPHEN) 1 TAB TABLET Dose: 1 TAB ORAL EVERY 4 HOURS PAIN Rx Instructions: 1-2 TAB Acetaminophen 325 MG / Hydrocodone Bitartrate 5 MG Oral Tablet (RxNorm): 397897 NORCO 5-325 TABLET (HYDROcodone BIT/ACETAMINOPHEN) [facility]: [id number] History Of Encounters Encounters Visit/Account #[id number] (January 21, 2016 6:39pm - January 21, 2016 8:36pm) Account Status Physican Of Record Reason For Visit Visit Diagnosis Start Date/Time Stop Date/Time KEIRA SMITH MD FALL, LEFT SIDED WEAKNESS Not Available Jan 21, 2016 6:39pm Jan 21, 2016 8:36pm History of Procedures Procedure List No procedures recorded. Discharge Instructions Discharge Instructions Visit/Account #[id number] (January 21, 2016 6:39pm - January 21, 2016 8:36pm) DISCHARGE INSTRUCTIONS Physician Documentation Social History Social History No Social History Data. Immunizations Immunizations Patient Unit Number: [id number] Immunizations No immunizations recorded.
--- OUTSIDE RECORDS SUMMARY | 2018-02-04 14:45 | XMS REPORT | Continuity of Care Document ---
Author Author [facility] Organization [facility] Address Unknown Phone Unavailable Support Name Relationship Address Phone ADORE NUNEZ MD Caregiver [address] [place] [address] BRITTNEE GIL Next Of Kin [address] [place] [address] Insurance Providers Payer Name Policy Number Subscriber Name Relationship Medicare A And B [id number] Caroline Larsen 19 Self / Same As Patient [facility] [id number] Caroline Larsen 18 Self / Same As Patient Chief Complaint and Reason for Visit Chief Complaint Pain Reason for Visit Subtherapeutic international normalized ratio (INR) Pain of left calf Problems Medical Problems Problem Onset Date Status Acute low back pain 04/15/2013 Active Chronic back pain 04/15/2013 Active Chronic low back pain 04/28/2013 Active Chronic pain ~06/21/2013 Active Shoulder joint pain ~07/14/2013 Active Fall on same level from slipping, tripping or stumbling ~07/14/2013 Active Injury of upper extremity ~07/20/2013 Active Accidental fall ~09/01/2013 Active At risk for falls Unknown Active Dental pain ~10/09/2013 Active Leg pain Unknown Active Subtherapeutic international normalized ratio (INR) Unknown Active Pain of left calf Unknown Active Medications Medication Dose Route Sig Days/Qty Instructions Order Date Discontinued Date Status Valsartan DAILY 04/03/13 06/03/14 Discontinued Famotidine 40 Mg ORAL DAILY 04/03/13 Active Trazodone Hcl DAILY 04/03/13 06/03/14 Discontinued Clopidogrel Bisulfate DAILY 04/03/13 Active Oxycodone Hcl/Acetaminophen SIX TIMES A DAY 04/03/13 04/15/13 Discontinued Oxycodone Hcl/Acetaminophen 1 Each ORAL EVERY 6 HOURS 20 Qty One po q6hrs prn severe pain 04/03/13 04/15/13 Discontinued Oxycodone Hcl/Acetaminophen 1 Each ORAL 06/21/13 09/01/13 Discontinued Oxycodone Hcl/Acetaminophen 1 Each ORAL EVERY 6 HOURS For Pain 20 Qty One po q6hrs prn severe pain 06/21/13 09/01/13 Discontinued Tramadol Hcl 50 Mg ORAL EVERY 4HRS PRN PAIN 10 Qty 09/01/13 06/03/14 Discontinued Aspirin 81 Mg ORAL DAILY 06/03/14 Active Atorvastatin 20 Mg ORAL DAILY 06/03/14 Active Clonazepam 0.5 Mg ORAL BEDTIME 06/03/14 Active Duloxetine Hcl 30 Mg ORAL DAILY 06/03/14 Active Escitalopram Oxalate 20 Mg ORAL DAILY 06/03/14 Active Metoprolol Tartrate 50 Mg ORAL TWICE A DAY 06/03/14 Active Mirtazapine 30 Mg ORAL BEDTIME 06/03/14 Active Omeprazole 20 Mg ORAL TWICE A DAY 06/03/14 Active Quetiapine Fumarate 50 Mg ORAL BEDTIME 06/03/14 Active Sucralfate (Carafate) 1 Gm ORAL FOUR TIMES DAILY 06/03/14 Active Valsartan 320 Mg ORAL DAILY 06/03/14 Active Oxycodone/Acetaminophen 1 Tab ORAL NEEDED 06/03/14 Active Warfarin Sodium 1 Mg ORAL DAILY 06/03/14 Active Warfarin (Coumadin) 1 Mg ORAL DAILY 7 Qty 06/03/14 Active Social History No social history. Hospital Discharge Instructions No hospital discharge instructions. Plan of Care Discharge Date 06/03/14 5:27pm Disposition 01 HOME OR SELF-CARE Condition at Discharge Stable Prescriptions See Medications Section Additional Instructions/Education Continue your current medications but take an additional 1 mg of coumadin daily for a total of 6 mg a day. You need to have your INR (reflects the coumadin level) checked in 5 days - contact Dr. Burrell's office Some of your test results may not [...] worrisome symptoms. * Emergency Department phone number: [phone], x [phone]* MEDICAL RECORD If you need copies of your X-rays, call [phone] x [phone]. If you need copies of [...] services. SERVICE BILLING DEMOCRAT Emergency Room Services [facility] Physician Services [facility] X[facility] Patients will receive bills for services from the appropriate provider. If you have any questions about your [facility] bill, our staff will be happy to assist you. Please call [phone], and ask for the billing department. THANK YOU for choosing [facility] as your emergency care provider! Functional Status No functional status results. Allergies, Adverse Reactions, Alerts Allergen Type Severity Reaction Status Last Updated prochlorperazine edisylate Allergy Severe Active 04/03/13 prochlorperazine maleate Allergy Severe Active 04/03/13 metoclopramide HCl Allergy Severe Active 04/03/13 Morphine Allergy Severe Active 04/03/13 cefazolin Allergy Unknown Active 06/03/14 NSAIDS Allergy Unknown BLEEDING STOMACH Active 06/03/14 TORODOL Allergy Severe Active 04/03/13 Immunizations No immunization records. Vital Signs Acute Vital Signs Vital Response Date/Time Temperature (Fahrenheit) 97.8 Pulse 63 bpm Respirations 18 Height 6 ft 1 in Weight 266 lb Body Mass Index 35.0 kg/m^2 Results Test Source Date Result Interp. Ref. Range Comments Prothromb Time International Ratio June 03, 2014 4:30pm 1.9 H 0.8- 1.4 Prothrombin Time June 03, 2014 4:30pm 21.6 SEC H 12.3-14.4 Procedures No known history of procedures. Encounters Encounter Location Date/Time Departed Emergency Room [facility] 06/03/14 3:30pm Registered Clinic [facility] 05/08/14 9:13pm Recent Diagnosis
--- OUTSIDE RECORDS SUMMARY | 2018-02-04 14:45 | XMS REPORT | Continuity of Care Document ---
Author Author Mary ROMERO, CANDACE [facility] Address [address] [place] [address] [place] [address] Phone Care Team Providers Care Furnace Helper Name Role Phone Doug Hernandez PP Unavailable Payers Payer name Insurance type Covered libertarian ID Authorization(s) Unknown Problems Condition Effective Dates (start - stop) Clinical Status Tobacco Abuse - *Chronic Lumbago - *Chronic CHRONIC PAIN NEC - *Chronic Hypertension, Benign - *Chronic COPD - *Chronic Influenza Vaccine - Hypertension, Benign - *Chronic Backache - *Chronic Osteoarthrosis, generalized, involving unspecified site - * Chronic Right hemiplegia - *Chronic GERD - *Chronic COPD - *Chronic Lumbago - *Chronic CHRONIC PAIN NEC - *Chronic Anxiety - *Chronic GERD - *Chronic Insomnia, Other - *Chronic Abdominal pain, epigastric - *Chronic Other and unspecified hyperlipidemia - *Chronic Cerebrovascular disease, unspecified - *Chronic Unspecified transient cerebral ischemia - *Resolved Carotid art occ w/o infarc - *Controlled Lumbago - *Controlled CHRONIC PAIN NEC - *Chronic COPD - *Chronic GERD - *Chronic Depression - *Chronic Carotid Artery Disease, Unilateral - *Chronic Lumbago - *Chronic Hypertension, Benign - *Chronic COPD - *Chronic Unspecified cerebrovascular disease - *Chronic CHRONIC PAIN NEC - *Chronic Loss of weight - *Chronic Hypertension, Benign - *Chronic Other and unspecified hyperlipidemia - *Chronic GERD - *Chronic Abdominal pain, right upper quadrant - *Chronic Unspecified cerebrovascular disease - *Chronic Tobacco Abuse - *Chronic CHRONIC PAIN NEC - *Chronic Low back pain - *Chronic Anxiety - *Acute Family History Family Member Diagnosis Age At Onset Status Father (Unknown) Cancer - unknown Yes Mother (Unknown) CAD Yes Social History Social History Element Description Quantity Unknown Allergies, Adverse Reactions, Alerts Substance Reaction Severity Status MORPHINE Unknown Unknown RANITIDINE HCL Unknown Unknown PROCHLORPERAZINE EDISYLATE Unknown PROCHLORPERAZINE MALEATE Unknown NSAIDS (NON-STEROIDAL ANTI-INFLAMMATORY DRUG) Unknown Medications Medication Instructions Dosage Effective Dates (start - stop) Status Advair Diskus 250 mcg-50 mcg/dose powder for inhalation inhale 1 puff by inhalation route 2 times every day in the morning and evening approximately 12 hours apart 0 - Active oxycodone 20 mg tablet take 1 tablet (20MG) by oral route every 4 - 6 hours 20 MG - No Longer Active sucralfate 1 gram tablet take 1 tablet (1G) by oral route 4 times every day on an empty stomach 1 hour before meals and at bedtime 1 G - Active mirtazapine 30 mg tablet take 1 tablet (30MG) by oral route every day before bedtime 30 MG - Active trazodone 100 mg tablet 2 t, po, qhs for sleep - Active escitalopram 20 mg tablet take 1 Tablet (20MG) by oral route every day 20 MG - Active Nasal [place] (oxymetazoline) 0.05 % aerosol spray 2 spray by intranasal route 2 times every day in each nostril in the morning and evening as needed 0 - Active EYE DROPS (unknown strength) prn - Active fluticasone 50 mcg/actuation nasal spray,suspension spray 2 spray (100MCG) by intranasal route every day in each nostril as needed as needed 100 MCG Jan - Active promethazine 25 mg tablet take 1 tablet (25MG) by oral route every 4 - 6 hours as needed 25 MG - Active Ventolin HFA 90 mcg/actuation aerosol inhaler inhale 2 puff by inhalation route every 4 - 6 hours as needed as needed 0 - Active famotidine 40 mg tablet take 1 tablet (40MG) by oral route 2 times every day 40 MG - Active omeprazole 20 mg capsule,delayed release take 1 capsule (20MG) by oral route 2 times every day before a meal 20 MG - Active Diovan 320 mg tablet take 1 tablet (320MG) by oral route every day 320 MG - Active clopidogrel 75 mg tablet take 1 tablet (75MG) by oral route every day 75 MG - Active Lyrica 50 mg capsule 1 po bid - Active clonazepam 0.5 mg tablet Take 1 tablet 3 times a day as needed for anxiety - Active oxycodone 20 mg tablet take 1 tablet (20MG) by oral route every 4 - 6 hours 20 MG - Active Immunizations Vaccine Date Status Comments Flu (split) (3 yrs or older) completed Results Test Name Date and Time Measure Units Reference Range Abnormal Flag Comments Unknown Vital Signs Date / Time: Height Weight Pulse Rate Blood Pressure Temperature /15:28:00 72.25 in 129.00 lbs 160/60 mm[Hg] 97.8 F Procedures Procedure Date Unknown Encounters Encounter Location Date Patient Visit [facility] Patient Visit [facility] Patient Visit [facility] Patient Visit [facility] Patient Visit [facility] Patient Visit [facility] Patient Visit [facility] Patient Visit [facility] Patient Visit [facility] Patient Visit [facility] Patient Visit [facility] Patient Visit [facility] Patient Visit [facility] Care Patient Visit [facility] Patient Visit [facility] Care Patient Visit [facility] Advance Directives Directive Effective Date Unknown
--- OUTSIDE RECORDS SUMMARY | 2018-02-04 14:45 | XMS REPORT | Continuity of Care Document ---
Author Author [facility] Organization [facility] Address Unknown Phone Unavailable Care Team Providers Care Caddy Master Name Role Phone Shady Burrell PCP Insurance Providers Payer Name Policy Number Subscriber Name Relationship Medicare A And B [id number] Caroline Larsen 19 Self / Same As Patient [facility] [id number] Caroline Larsen 19 Self / Same As Patient Chief Complaint and Reason for Visit Chief Complaint Ear/Nose/Throat Complaint Reason for Visit Epistaxis Problems Medical Problems Problem Onset Date Status [...] Active Pain of left calf Unknown Active Epistaxis Unknown Active Medications Medication Dose Route Sig [...] Discontinued Aspirin 81 Mg ORAL DAILY 06/03/14 06/11/14 Discontinued Atorvastatin 20 Mg ORAL DAILY 06/03/14 Active [...] Active Oxycodone/Acetaminophen 1 Tab ORAL NEEDED 06/03/14 06/11/14 Discontinued Warfarin Sodium 1 Mg ORAL DAILY 06/03/14 06/11/14 Discontinued Warfarin (Coumadin) 1 Mg ORAL DAILY 7 Qty 06/03/14 06/11/14 Discontinued Warfarin (Coumadin) 6 Mg ORAL DAILY 06/11/14 Active Social History No social history. Hospital Discharge Instructions No hospital discharge instructions. Plan of Care Discharge Date 06/11/14 11:00am Disposition 01 HOME OR SELF-CARE Condition at Discharge Stable Instructions/Education Provided Epistaxis (ED) Prescriptions See Medications Section Referrals Shady Burrell Additional Instructions/Education Hold Coumadin today. Return to 5mg Comadin daily, starting tomorrow. See your doctor in 1-2 days, to remove packing. Some of your test results may not [...] worrisome symptoms. * Emergency Department phone number: [phone], x [phone]* MEDICAL RECORD If you need copies of your X-rays, call [phone] x [phone]. If you need copies of [...] the billing parties for services. SERVICE BILLING LIBERTARIAN Emergency Room Services [facility] Physician Services [facility] Patients will receive bills for services from the appropriate provider. If you have any questions about your [facility] bill, our staff will be happy to assist you. Please call [phone], and ask for the billing department. THANK YOU for choosing [facility] as your emergency care provider! Functional [...] Vital Signs Vital Response Date/Time Temperature (Fahrenheit) 98.2 Pulse 95 bpm Respirations 16 Height 6 ft 1 in Weight 169 lb Body Mass Index 22.0 kg/m^2 Results Test Source Date Result Interp. Ref. Range Comments Prothromb Time International Ratio June 11, 2014 8:55am 4.5 PH 0.8-1.[address] Foote read back the results. Called by Jessica Street at 0918 Prothrombin Time June 11, 2014 8:55am 40.6 SEC PH 11.9-14.2 Results called to read back the results. Called by Jessica Street at 0917 Procedures Procedure Status Date Provider(s) ROUTINE VENIPUNCTURE completed 06/03/14 PROTHROMBIN TIME completed 06/03/14 EXTREMITY STUDY completed 06/03/14 EMERGENCY DEPT VISIT completed 06/03/14 completed 06/03/14 Encounters Encounter Location Date/Time Departed Emergency Room [facility] 06/11/14 8:20am Departed Emergency Room [facility] 06/03/14 3:30pm Recent Diagnosis
--- OUTSIDE RECORDS SUMMARY | 2018-02-04 14:45 | XMS REPORT | Continuity Of Care Document ---
Author Author [facility] Organization [facility] Address [address] [place] [address] Phone Care Team Providers Care Heddle Machine Operator Name Role Phone MESSI ROMERO, RICHARD Castro PP LUIS ROMERO, WEI Martinez CP Results Lab Results Visit/Account #[id number] (May 24, 2014 1:19pm - May 24, 2014 6: 57pm) Test Result Date/Time 07740-8: COMPLETE BLOOD COUNT WITH DIFF WHITE BLOOD COUNT(4.0-11.0 10E3/UL) 8.5 10E3/UL May 24, 2014 3:16pm RED BLOOD COUNT(4.50-5.90 10E6/UL) 4.52 10E6/UL May 24, 2014 3:16pm HEMOGLOBIN(13.5-17.5 G/DL) 13.1 G/DL May 24, 2014 3:16pm HEMATOCRIT(41.0-53.0 %) 40.5 % May 24, 2014 3:16pm 59576-7: MEAN CORPUSCULAR VOLUME(82.0-100.0 FL) 89.6 FL May 24, 2014 3:16pm 42277-3: MEAN CORPUSCULAR HEMOGLOBIN(26.0-34.0 PG) 29.0 PG May 24, 2014 3:16pm MEAN CORPUSCULAR HGB CONC(31.5-36.5 G/DL) 32.3 G/DL May 24, 2014 3:16pm RED CELL DISTRIBUTION WIDTH(11.5-14.5 %) 16.9 % May 24, 2014 3:16pm 777-3: PLATELET COUNT(150-450 10E3/UL) 209 10E3/UL May 24, 2014 3:16pm MEAN PLATELET VOLUME(8.2-12.4 FL) 9.7 FL May 24, 2014 3:16pm 770-8: NEUTROPHILS % (AUTO)(40-70 %) 68 % May 24, 2014 3:16pm LYMPHOCYTES % (AUTO)(15-45 %) 20 % May 24, 2014 3:16pm 5905-5: MONOCYTES % (AUTO)(2-10 %) 9 % May 24, 2014 3:16pm 713-8: EOSINOPHILS % (AUTO)(0-6 %) 2 % May 24, 2014 3:16pm 706-2: BASOPHILS % (AUTO)(0-1 %) 1 % May 24, 2014 3:16pm 39743-0: IMMATURE GRANS % (AUTO)(0-0 %) 0 % May 24, 2014 3:16pm NUCLEATED RBCS (AUTO)(0-0 %) 0 % May 24, 2014 3:16pm 751-8: NEUTROPHILS # (AUTO)(2.5-7.5 10E3/UL) 5.8 10E3/UL May 24, 2014 3:16pm 40958-5: LYMPHOCYTES # (AUTO)(1.0-4.0 10E3/UL) 1.7 10E3/UL May 24, 2014 3:16pm 742-7: MONOCYTES # (AUTO)(0.2-0.8 10E3/UL) 0.8 10E3/UL May 24, 2014 3:16pm 711-2: EOSINOPHILS # (AUTO)(0.0-0.4 10E3/UL) 0.2 10E3/UL May 24, 2014 3:16pm 704-7: BASOPHILS # (AUTO)(0.0-0.2 10E3/UL) 0.1 10E3/UL May 24, 2014 3:16pm IMMATURE GRANS # (AUTO)(0.0-0.0 10E3/UL) 0.0 10E3/UL May 24, 2014 3:16pm DIFF TYPE AUTOMATED May 24, 2014 3:16pm 40433-2: COMPLETE METABOLIC PROFILE 47831-2: GLUCOSE(70-110 MG/DL) 91 MG/DL May 24, 2014 3:40pm BLOOD UREA NITROGEN(6-20 MG/DL) 21 MG/DL May 24, 2014 3:40pm 14784-8: CREATININE(0.50-1.20 MG/DL) 1.06 MG/DL May 24, 2014 3:40pm 89876-6: EST GLOMERULAR FILTRATION RATE(Greater than or equal to 60) Greater than or equal to 60 Result Comments: If the patient is of -Mexican descent/extraction multiply the eGFR value by 1.212 to obtain the actual eGFR. >=60 mg/dL Normal 30-59 mg/dL Moderate Kidney Disease 15-29 mg/dL Severe Kidney Disease <15 mg/dL Kidney Failure May 24, 2014 3:40pm BUN CREATININE RATIO(10.0-20.0 RATIO) 20.0 RATIO May 24, 2014 3:40pm 95131-5: SODIUM(135-145 MMOL/L) 140 MMOL/L May 24, 2014 3:40pm 46786-5: POTASSIUM(3.6-5.0 MMOL/L) 4.1 MMOL/L May 24, 2014 3:40pm 66556-1: CHLORIDE(101-111 MMOL/L) 107 MMOL/L May 24, 2014 3:40pm 8-9: CO2(21-31 MMOL/L) 25.0 MMOL/L May 24, 2014 3:40pm 50273-7: ANION GAP(8-18) 12 May 24, 2014 3:40pm OSMO CALCULATED(270.0-290.0) 282.0 May 24, 2014 3:40pm CALCIUM(8.5-10.5 MG/DL) 8.9 MG/DL May 24, 2014 3:40pm BILIRUBIN,TOTAL(0.1-1.2 MG/DL) 0.6 MG/DL May 24, 2014 3:40pm ALKALINE PHOSPHATASE(42-121 IU/L) 57 IU/L May 24, 2014 3:40pm ASPARTATE AMINO TRANSFERASE(10-42 IU/L) 21 IU/L May 24, 2014 3:40pm ALANINE AMINOTRANSFERASE(10-60 IU/L) 18 IU/L May 24, 2014 3:40pm 44489-8: TOTAL PROTEIN(6.4-8.2 G/DL) 6.4 G/DL May 24, 2014 3:40pm ALBUMIN(3.5-5.5 G/DL) 3.5 G/DL May 24, 2014 3:40pm 2336-6: GLOBULIN(2.4-3.6) 2.9 May 24, 2014 3:40pm 1759-0: ALBUMIN/GLOBULIN RATIO(0.9-1.8 RATIO) 1.2 RATIO May 24, 2014 3:40pm 61095-8: CARDIAC TROPONIN I 70930-1: CARDIAC TROPONIN I(0.01-0.04 NG/ML) 0.01 NG/ML Result Comments: REFERENCE RANGES: NEGATIVE < 0.04 NG/ML POSSIBLE MYCARDIAL INVOLVEMENT >/=0.04 NG/ML INTERPRET TROPONIN I RESULT IN LIGHT OF THE TOTAL CLINICAL PRESENTATION INCLUDING CLINICAL HISTORY. ANY CONDITION RESULTING IN MYOCARDIAL INJURY CAN POTENTIALLY ELEVATE TROPONIN I LEVELS ABOVE EXPECTED NORMAL RANGES. NOTE NEW REFERENCE RANGE May 24, 2014 3:40pm Allergies and Adverse Reactions Allergies and Adverse Reactions Patient Unit Number: [id number] Agent Type Reaction Severity Status Date ANTI INFLAMMATORY DRUGS Allergy Unknown Mild Active Unknown Date COMPAZ Allergy Unknown Moderate Active Unknown Date PROCHLORPERAZINE EDISYLATE Drug Allergy Unknown Moderate Active Unknown Date PROCHLORPERAZINE MALEATE Drug Allergy Unknown Moderate Active Unknown Date METOCLOPRAMIDE HCL Drug Allergy Unknown Moderate Active Unknown Date KETOROLAC TROMETHAMINE Drug Allergy Unknown Unknown Active Unknown Date NSAIDS (NON-STEROIDAL ANTI-INFLAMMA Drug Adverse Reaction Unknown Moderate Active Unknown Date PROCHLORPERAZINE Drug Allergy Unknown Mild Active Unknown Date MORPHINE Drug Allergy Unknown Mild Active Unknown Date METOCLOPRAMIDE Drug Allergy Unknown Mild Active Unknown Date MORP Adverse Reaction HIVES Moderate Active Unknown Date REGLAN Allergy Unknown Moderate Active Unknown Date Problem List Problem List No Known Problems Plan of Care Plan Of Care Visit/Account #[id number] (May 24, 2014 1:19pm - May 24, 2014 6: 57pm) Instructions/Comments: DI for Deep Vein Thrombosis Follow with primary care in 2-3 days. Give Lovenox shot 120 MG daily and to take Coumadin daily as prescribed. Return to the emergency room if symptoms worsens or has any concern. Continue other medications. Vital Signs Vital Signs Visit/Account #[id number] (May 24, 2014 1:19pm - May 24, 2014 6: 57pm) Label First Result Last Result 8310-5: Body Temperature 97.8 degF May 24, 2014 1:14pm 8310-5: Fahrenheit Body Temperature 98.2 [degF] May 24, 2014 6:50pm 8480-6: BP Systolic 171/ mmHg May 24, 2014 1:14pm 75/ mm[Hg] May 24, 2014 6:50pm 8867-4: Heart Rate 72 /min May 24, 2014 1:14pm 60 /min May 24, 2014 6:50pm 9279-1: Respiratory Rate 16 /min May 24, 2014 1:14pm 16 /min May 24, 2014 6:50pm Unmapped Query Mnemonic (RESP.SAT) Saturation 98 % May 24, 2014 1:14pm 98 % May 24, 2014 1:14pm Unmapped Query Mnemonic (VS.BMI) Body Mass Index (BMI) 21.0 May 24, 2014 1:14pm 21.0 May 24, 2014 1:14pm Functional Status Functional Status No Functional Status Data Medications Inpatient/Ordered Medications Visit/Account #[id number] (May 24, 2014 1:19pm - May 24, 2014 6: 57pm) Medication Route Sig/Schedule Precondition/Indication Comments/Instructions Codes DILAUDID(HYDROmorphone HCL) 2 MG/ML INJECTION Total Dose: 1 ML INTRAVEN NOW: NOW Rx Order Comments: Order placed as verified: Dose Warnings differ from new order clerk Label Comments: MAY INCREASE FALL RISK DILAUDID (HYDROmorphone HCL) RxNorm: [id number] DILAUDID (HYDROmorphone HCL) NDC: 76780165506 ZOFRAN INJ(ONDansetron HCL) 4 MG/2 ML INJECTION Total Dose: 4 MG INTRAVEN NOW: NOW Rx Order Comments: Order placed as verified: Dose Warnings differ from new order clerk Label Comments: SLOW IV PUSH MAY INCREASE FALL RISK ZOFRAN INJ (ONDansetron HCL) RxNorm: K895742 ZOFRAN INJ (ONDansetron HCL) NDC: 56742273964 LOVENOX(ENOXAPARIN) 80 MG/0.8 ML INJECTION Total Dose: 70 ML SUBCUTANEOUSLY [place]: ONE TIME ORDER Label Comments: INJECT SC INTO ABDOMINAL WALL ONLY. DOSED AT __MG/KG BASED ON PT WEIGHT OF __KG AND ROUNDED PER PROTOCOL. LOVENOX (ENOXAPARIN) RxNorm: T458644 LOVENOX (ENOXAPARIN) RxNorm: R194468 LOVENOX (ENOXAPARIN) NDC: 96326028617 DILAUDID(HYDROmorphone HCL) 2 MG/ML INJECTION Total Dose: 1 ML INTRAVEN NOW: NOW Rx Order Comments: Order placed as verified: Dose Warnings differ from new order clerk Label Comments: MAY INCREASE FALL RISK DILAUDID (HYDROmorphone HCL) RxNorm: R717887 DILAUDID (HYDROmorphone HCL) NDC: 28525474169 Discharge Medications Visit/Account #[id number] (May 24, 2014 1:19pm - May 24, 2014 6: 57pm) Medication Route Sig/Schedule Precondition/Indication Comments/Instructions Codes LOVENOX(ENOXAPARIN) 120 MG/0.8 ML INJECTION SUBCUTANEOUSLY DAILY: DAILY LOVENOX (ENOXAPARIN) RxNorm: N830011 LOVENOX (ENOXAPARIN) RxNorm: W002221 LOVENOX (ENOXAPARIN) NDC: 34075753843 COUMADIN(WARFARIN SODIUM) 5 MG TAB ORAL DAILY: DAILY COUMADIN (WARFARIN SODIUM) RxNorm: X107825 COUMADIN (WARFARIN SODIUM) RxNorm: Z432488 COUMADIN (WARFARIN SODIUM) NDC: 45812210418 PERCOCET 5-325(OxyCODONE HCL/ACETAMINOPHEN) 1 EACH TABLET ORAL Q4S: EVERY 4 HOURS PERCOCET 5-325 (OxyCODONE HCL/ACETAMINOPHEN) RxNorm: Q8425694 PERCOCET 5-325 (OxyCODONE HCL/ACETAMINOPHEN) RxNorm: U8198909 PERCOCET 5-325 (OxyCODONE HCL/ACETAMINOPHEN) NDC: 47948157947 History Of Encounters Encounters Visit/Account #[id number] (May 24, 2014 1:19pm - May 24, 2014 6: 57pm) Account Status Physican Of Record Reason For Visit Visit Diagnosis Start Date/Time Stop Date/Time KEIRA SMITH MD POSSIBLE BLOOD CLOT Not Available May 24, 2014 1:19pm May 24, 2014 6:57pm History of Procedures Procedure List No Procedures Discharge Instructions Discharge Instructions Visit/Account #[id number] (May 24, 2014 1:19pm - May 24, 2014 6: 57pm) No Discharge Instructions Reports. Social History Social History Visit/Account #[id number] (May 24, 2014 1:19pm - May 24, 2014 6: 57pm) Smoking Status Heavy tobacco smoker May 24, 2014 1:21pm Immunizations Immunizations Patient Unit Number: [id number] Immunizations No Immunizations Administered
--- OUTSIDE RECORDS SUMMARY | 2018-02-04 14:46 | XMS REPORT | Continuity Of Care Document ---
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 Name Role Phone DAVE JARVIS DO AT Results Lab Results Visit/Account #[id number] (August 04, 2011 3:31am - August 04, 2011 5:24am) Test Result Reported Date/Time COMPLETE BLOOD COUNT WITH DIFF WHITE BLOOD COUNT(4.0-11.0 10E3/UL) 10.1 10E3/UL August 04, 2011 3:55am RED BLOOD COUNT(4.40-5.90 10E6/UL) 4.75 10E6/UL August 04, 2011 3:55am HEMOGLOBIN(13.0-18.0 G/DL) 14.4 G/DL August 04, 2011 3:55am HEMATOCRIT(39.0-54.0 %) 41.4 % August 04, 2011 3:55am MEAN CORPUSCULAR VOLUME(80.0-100.0 FL) 87.2 FL August 04, 2011 3:55am MEAN CORPUSCULAR HEMOGLOBIN(27.0-34.0 PG) 30.3 PG August 04, 2011 3:55am MEAN CORPUSCULAR HGB CONC(33.0-37.0 G/DL) 34.8 G/DL August 04, 2011 3:55am RED CELL DISTRIBUTION WIDTH(11.0-15.0 %) 13.4 % August 04, 2011 3:55am 777-3: PLATELET COUNT(130-400 10E3/UL) 288 10E3/UL August 04, 2011 3:55am MEAN PLATELET VOLUME(7.4-11.0 FL) 9.4 FL August 04, 2011 3:55am NEUTROPHILS % (AUTO)(40-70 %) 60 % August 04, 2011 3:55am LYMPHOCYTES % (AUTO)(15-45 %) 27 % August 04, 2011 3:55am MONOCYTES % (AUTO)(2-10 %) 9 % August 04, 2011 3:55am EOSINOPHILS % (AUTO)(0-6 %) 2 % August 04, 2011 3:55am BASOPHILS % (AUTO)(0-1 %) 0 % August 04, 2011 3:55am IMMATURE GRANS % (AUTO)(0-0 %) 0 % August 04, 2011 3:55am NEUTROPHILS # (AUTO)(2.5-7.5 10E3/UL) 6.1 10E3/UL August 04, 2011 3:55am LYMPHOCYTES # (AUTO)(1.0-4.0 10E3/UL) 2.8 10E3/UL August 04, 2011 3:55am MONOCYTES # (AUTO)(0.2-0.8 10E3/UL) 1.0 10E3/UL August 04, 2011 3:55am EOSINOPHILS # (AUTO)(0.0-0.4 10E3/UL) 0.2 10E3/UL August 04, 2011 3:55am BASOPHILS # (AUTO)(0.0-0.2 10E3/UL) 0.0 10E3/UL August 04, 2011 3:55am IMMATURE GRANS # (AUTO)(0.0-0.0 10E3/UL) 0.0 10E3/UL August 04, 2011 3:55am DIFF TYPE AUTOMATED August 04, 2011 4:02am COMPLETE METABOLIC PROFILE GLUCOSE(70-110 MG/DL) 148 MG/DL August 04, 2011 4:07am BLOOD UREA NITROGEN(6-20 MG/DL) 18 MG/DL August 04, 2011 4:07am CREATININE(0.50-1.20 MG/DL) 0.80 MG/DL August 04, 2011 4:07am EST GLOMERULAR FILTRATION RATE(Greater than or equal to 60) Greater than or equal to 60 Result Comments: If the patient is of -[place]ralt[place] descent/extraction multiply the eGFR value by 1.212 to obtain the actual eGFR. >=60 mg/dL Normal 30-59 mg/dL Moderate Kidney Disease 15-29 mg/dL Severe Kidney Disease <15 mg/dL Kidney Failure August 04, 2011 4:07am BUN CREATININE RATIO(10.0-20.0 RATIO) 22.5 RATIO August 04, 2011 4:07am SODIUM(135-145 MMOL/L) 140 MMOL/L August 04, 2011 4:07am POTASSIUM(3.6-5.0 MMOL/L) 3.7 MMOL/L August 04, 2011 4:07am CHLORIDE(101-111 MMOL/L) 108 MMOL/L August 04, 2011 4:07am CO2(21-31 MMOL/L) 25.0 MMOL/L August 04, 2011 4:07am ANION GAP(8-18) 11 August 04, 2011 4:07am OSMO CALCULATED(270.0-290.0) 284.0 August 04, 2011 4:07am CALCIUM(8.5-10.5 MG/DL) 9.3 MG/DL August 04, 2011 4:07am BILIRUBIN,TOTAL(0.1-1.2 MG/DL) 0.5 MG/DL August 04, 2011 4:07am ALKALINE PHOSPHATASE(42-121 U/L) 80 U/L August 04, 2011 4:07am ASPARTATE AMINO TRANSFERASE(10-42 U/L) 19 U/L August 04, 2011 4:07am ALANINE AMINOTRANSFERASE(10-60 U/L) 11 U/L August 04, 2011 4:07am TOTAL PROTEIN(6.4-8.2 G/DL) 6.8 G/DL August 04, 2011 4:07am ALBUMIN(3.5-5.5 G/DL) 3.9 G/DL August 04, 2011 4:07am GLOBULIN(2.4-3.6) 2.9 August 04, 2011 4:07am ALBUMIN/GLOBULIN RATIO(0.9-1.8 RATIO) 1.3 RATIO August 04, 2011 4:07am LIPASE LIPASE(22-51 U/L) 51 U/L August 04, 2011 4:07am Result Procedures Visit/Account #[id number] (August 04, 2011 3:31am - August 04, 2011 5:24am) Department: DIAGNOSTIC IMAGING [ Report: Diagnostic Imaging Report ] Diagnostic Imaging Report Dictated By: JAQUELINE GUTIERREZ MD Signed By: JAQUELINE GUTIERREZ MD [address] [address] ~Department of Radiology~ Patient: CAROLINE LEGGETT SR Unit/MR#: [id number] : 1945 Age: 66 Sex: M Report#: [id number] Room#: Location: ED Order Dr: DAVE JARVIS DO Tech: Hunter Meyer Signed DIAGNOSTIC XRAY Dt/Tm of Exam: 08/04/11 0414 Exam Description: XR ACUTE ABDOMEN SERIES Reason for Exam: abd pain THREE-VIEW ABDOMINAL SERIES, 08/04/11 AT 0450 CLINICAL HISTORY: Abdominal pain The accompanying chest x-ray is unremarkable. Chronic interstitial changes are noted. Supine and erect views of the abdomen do not demonstrate any organomegaly. Calcified granulomas are associated with the spleen, which are incidentally noted. The intestinal gas pattern is nonspecific suggesting neither mechanical obstruction or ileus. The psoas margins are distinct, and the visualized osseous structures are unremarkable for age. Calcified granulomas overlying the iliac wings bilaterally are unchanged and would be consistent with injection granulomas. IMPRESSION: Negative abdominal series. The intestinal gas pattern suggests neither mechanical obstruction or ileus. [id number] Transcribed By: HU 08/05/11 0414 Dictated By: JAQUELINE GUTIERREZ MD Signed By: JAQUELINE GUTIERREZ MD 08/05/11 0610 CC: DAEV JARVIS DO [facility] ~ Allergies and Adverse Reactions Allergies and Adverse Reactions Patient Unit Number: [id number] Agent Type Reaction Severity Status Date ANTI INFLAMMATORY DRUGS Allergy Unknown Mild Active April 13, 2007 COMPAZ Allergy Unknown Intermediate Active January 11, 2012 PROCHLORPERAZINE EDISYLATE Drug Allergy Unknown Intermediate Active January 20, 2012 PROCHLORPERAZINE MALEATE Drug Allergy Unknown Intermediate Active January 20, 2012 METOCLOPRAMIDE HCL Drug Allergy Unknown Intermediate Active January 20, 2012 KETOROLAC TROMETHAMINE Drug Allergy Unknown Unknown Active October 15, 2009 NSAIDS (NON-STEROIDAL ANTI-INFLAMMA Drug Adverse Reaction Unknown Intermediate Active January 11, 2012 PROCHLORPERAZINE Drug Allergy Unknown Mild Active April 13, 2007 MORPHINE Drug Allergy Unknown Mild Active April 13, 2007 METOCLOPRAMIDE Drug Allergy Unknown Mild Active April 13, 2007 MORP Adverse Reaction HIVES Intermediate Active January 11, 2012 REGLAN Allergy Unknown Intermediate Active January 11, 2012 Vital Signs Vital Signs Visit/Account #[id number] (August 04, 2011 3:31am - August 04, 2011 5:24am) Label First Result Last Result 8310-5: Body Temperature 98 degF August 04, 2011 3:26am 8310-5: Fahrenheit Body Temperature 98.3 [degF] August 04, 2011 5:00am 8480-6: BP Systolic 160/ mmHg August 04, 2011 3:26am 55/ mm[Hg] August 04, 2011 5:00am 8867-4: Heart Rate 103 /min August 04, 2011 3:26am 84 /min August 04, 2011 5:00am 9279-1: Respiratory Rate 18 /min August 04, 2011 3:26am 18 /min August 04, 2011 5:00am Unmapped Query Mnemonic (RESP.SAT) Saturation 100 % August 04, 2011 3:26am 100 % August 04, 2011 3:26am Ordered Medications Ordered Medications Visit/Account #[id number] (August 04, 2011 3:31am - August 04, 2011 5:24am) Medication Dose Route Sig/Schedule Precondition/Indication Comments/ Instructions NDC NORMAL SALINE FLUSH SYR(SODIUM CHLORIDE) 10 ML INJECTION 10 ML IV: INTRAVEN .[facility] NORMAL SALINE FLUSH SYR (SODIUM CHLORIDE): [id number] IV Medication Carriers: NORMAL SALINE(SODIUM CHLORIDE) 1000 ML INJECTION 1000 ML IV: INTRAVEN .Q1H (Rate: 1000 MLS/HR Duration: 1 HR) Rx Order Comments: Order placed as verified: Dose Warnings differ from short order fry cook Carriers: NORMAL SALINE (SODIUM CHLORIDE): [id number] NORMAL SALINE FLUSH SYR(SODIUM CHLORIDE) 10 ML INJECTION 10 ML IV: INTRAVEN PRN: NEEDED PRN Reason: PRN Is Schedule, No PRN Reason Listed Rx Order Comments: Order placed as verified: Dose Warnings differ from short order fry cook NORMAL SALINE FLUSH SYR (SODIUM CHLORIDE): [id number] DILAUDID(HYDROmorphone HCL) 2 MG/ML INJECTION 1 MG IV: INTRAVEN NOW: NOW Rx Order Comments: Order placed as verified: Allergies/Duplicates/Interactions differ from short order fry cook Label Comments: MAY INCREASE FALL RISK DILAUDID (HYDROmorphone HCL): 47050227624 PHENERGAN INJ(PROMETHazine HCL) 25 MG/ML INJECTION 25 MG IV: INTRAVEN NOW: NOW Rx Order Comments: Order placed as verified: Allergies/Duplicates/Interactions differ from short order fry cook Label Comments: For IV use dilute 1 ml with 9 ml of NS and administer through large bore vein (avoiding hand or wrist veins. Give over 10-15 minutes. Administration of diluted product with free-flowing IV decreases patient risk of tissue damage. Patients should be advised to notify the nurse immediately if they experience pain or burning during or after the injection MAY INCREASE FALL RISK PHENERGAN INJ (PROMETHazine HCL): 33241488960 NORMAL SALINE FLUSH SYR(SODIUM CHLORIDE) 10 ML INJECTION 10 ML IV: INTRAVEN NOW: NOW Rx Order Comments: Order placed as verified: Allergies/Duplicates/Interactions differ from short order fry cook Label Comments: Dilute 25 mg (=1 ml) of promethazine with 9 ml of Normal Saline. The final concentration is 2.5 mg/ml. Special Dose Instructions: to dilute IV promethazine NORMAL SALINE FLUSH SYR (SODIUM CHLORIDE): 07259101548 SUBLIMAZE INJ(FentaNYL CITRATE) 100 MCG/2 ML INJECTION 100 MCG IV: INTRAVEN NOW: NOW Rx Order Comments: Order placed as verified: Dose Warnings differ from short order fry cook Label Comments: MAY INCREASE FALL RISK SUBLIMAZE INJ (FentaNYL CITRATE): 43070301030 DILAUDID(HYDROmorphone HCL) 2 MG/ML INJECTION 0.5 MG IV: INTRAVEN NOW: NOW Rx Order Comments: Order placed as verified: Allergies/Duplicates/Interactions differ from short order fry cook Label Comments: MAY INCREASE FALL RISK DILAUDID (HYDROmorphone HCL): 10821398029 History Of Encounters Encounters Visit/Account #[id number] (August 04, 2011 3:31am - August 04, 2011 5:24am) No reports exist, or have been identified for inclusion with this encounter.
--- OUTSIDE RECORDS SUMMARY | 2018-02-04 14:46 | XMS REPORT | Continuity of Care Document ---
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 Name Role Phone Doug Hernandez PP Unavailable Payers Payer name Insurance type Covered constitution party ID Authorization(s) Unknown Problems Condition Effective Dates (start - stop) Clinical Status Lumbago - *Chronic Hypertension, Benign - *Chronic COPD - *Chronic Unspecified cerebrovascular disease - *Chronic CHRONIC PAIN NEC - *Chronic Influenza Vaccine - Hypertension, Benign - *Chronic Backache - *Chronic Osteoarthrosis, generalized, involving unspecified site - * Chronic Right hemiplegia - *Chronic GERD - *Chronic COPD - *Chronic Lumbago - *Chronic CHRONIC PAIN NEC - *Chronic Anxiety - *Chronic GERD - *Chronic Insomnia, Other - *Chronic Abdominal pain, epigastric - *Chronic Other and unspecified hyperlipidemia - *Chronic Tobacco Abuse - *Chronic Lumbago - *Chronic CHRONIC PAIN NEC - *Chronic Hypertension, Benign - *Chronic COPD - *Chronic Cerebrovascular disease, unspecified - *Chronic Unspecified transient cerebral ischemia - *Resolved Carotid art occ w/o infarc - *Controlled Lumbago - *Controlled CHRONIC PAIN NEC - *Chronic COPD - *Chronic GERD - *Chronic Depression - *Chronic Carotid Artery Disease, Unilateral - *Chronic Loss of weight - *Chronic Hypertension, Benign - *Chronic Other and unspecified hyperlipidemia - *Chronic GERD - *Chronic Abdominal pain, right upper quadrant - *Chronic Unspecified cerebrovascular disease - *Chronic Tobacco Abuse - *Chronic CHRONIC PAIN NEC - *Chronic Low back pain - *Chronic Family History Family Member Diagnosis Age At Onset Status Father (Unknown) Cancer - unknown Yes Mother (Unknown) CAD Yes Social History Social History Element Description Quantity Unknown Allergies, Adverse Reactions, Alerts Substance Reaction Severity Status MORPHINE Unknown Unknown RANITIDINE HCL Unknown Unknown PROCHLORPERAZINE EDISYLATE Unknown PROCHLORPERAZINE MALEATE Unknown NSAIDS (NON-STEROIDAL ANTI-INFLAMMATORY DRUG) Unknown Medications Medication Instructions Dosage Effective Dates (start - stop) Status Percocet 10 mg-325 mg tablet take 2 Tablet by oral route 4 times every day as needed, Rx must last 30 days 0 - No Longer Active sucralfate 1 gram [...] every day 20 MG - Active Nasal [place] (oxymetazoline) 0.05 % aerosol spray 2 spray [...] - 6 hours 20 MG - Active Advair Diskus 250 mcg-50 mcg/dose powder for inhalation inhale 1 puff by inhalation route 2 times every day in the morning and evening approximately 12 hours apart 0 - Active Immunizations Vaccine Date Status Comments Flu (split) (3 yrs or older) completed Results Test Name Date and Time Measure Units Reference Range Abnormal Flag Comments Unknown Vital Signs Date / Time: Height Weight Pulse Rate Blood Pressure Temperature /17:09:00 72.25 in 80 /min 142/60 mm[Hg] 97.4 F Procedures Procedure Date Unknown Encounters Encounter Location Date Patient Visit [facility] Patient Visit [facility] Patient Visit [facility] Patient Visit [facility] Patient Visit [facility] Patient Visit [facility] Patient Visit [facility] Patient Visit [facility] Patient Visit [facility] Patient Visit [facility] Patient Visit [facility] Patient Visit [facility] Patient Visit [facility] Patient Visit [facility] Advance Directives Directive Effective Date Unknown
--- OUTSIDE RECORDS SUMMARY | 2018-02-04 14:46 | XMS REPORT | Continuity Of Care Document ---
Author Author [facility] Organization [facility] Address [address] [facility] [place] [address] Phone Care Team Providers Care Felt Tipping Machine Tender Name Role Phone Unavailable Unavailable HARLEY ROMERO, SULY CP MITRA STREETER DO PP Unavailable Unavailable Results Lab Results Visit/Account #[id number] (December 21, 2016 9:07pm - December 22, 2016 1: 11am) Test Result Date/Time COMPLETE BLOOD COUNT WITH DIFF WHITE BLOOD COUNT(4.0-11.0 10E3/UL) 6.7 10E3/UL December 21, 2016 9:45pm RED BLOOD COUNT(4.50-5.90 10E6/UL) 5.23 10E6/UL December 21, 2016 9:45pm HEMOGLOBIN(13.5-17.5 G/DL) 17.3 G/DL December 21, 2016 9:45pm HEMATOCRIT(41.0-53.0 %) 48.7 % December 21, 2016 9:45pm MEAN CORPUSCULAR VOLUME(82.0-100.0 FL) 93.1 FL December 21, 2016 9:45pm MEAN CORPUSCULAR HEMOGLOBIN(26.0-34.0 PG) 33.1 PG December 21, 2016 9:45pm MEAN CORPUSCULAR HGB CONC(31.5-36.5 G/DL) 35.5 G/DL December 21, 2016 9:45pm RED CELL DISTRIBUTION WIDTH(11.5-14.5 %) 12.5 % December 21, 2016 9:45pm 777-3: PLATELET COUNT(150-450 10E3/UL) 208 10E3/UL December 21, 2016 9:45pm MEAN PLATELET VOLUME(8.2-12.4 FL) 9.6 FL December 21, 2016 9:45pm NEUTROPHILS % (AUTO)(40-70 %) 66 % December 21, 2016 9:45pm LYMPHOCYTES % (AUTO)(15-45 %) 24 % December 21, 2016 9:45pm MONOCYTES % (AUTO)(2-10 %) 7 % December 21, 2016 9:45pm EOSINOPHILS % (AUTO)(0-6 %) 3 % December 21, 2016 9:45pm BASOPHILS % (AUTO)(0-1 %) 1 % December 21, 2016 9:45pm IMMATURE GRANS % (AUTO)(0-0 %) 0 % December 21, 2016 9:45pm NUCLEATED RBCS (AUTO)(0-0 %) 0 % December 21, 2016 9:45pm NEUTROPHILS # (AUTO)(2.5-7.5 10E3/UL) 4.4 10E3/UL December 21, 2016 9:45pm LYMPHOCYTES # (AUTO)(1.0-4.0 10E3/UL) 1.6 10E3/UL December 21, 2016 9:45pm MONOCYTES # (AUTO)(0.2-0.8 10E3/UL) 0.5 10E3/UL December 21, 2016 9:45pm EOSINOPHILS # (AUTO)(0.0-0.4 10E3/UL) 0.2 10E3/UL December 21, 2016 9:45pm BASOPHILS # (AUTO)(0.0-0.2 10E3/UL) 0.0 10E3/UL December 21, 2016 9:45pm IMMATURE GRANS # (AUTO)(0.0-0.0 10E3/UL) 0.0 10E3/UL December 21, 2016 9:45pm DIFF TYPE AUTOMATED December 21, 2016 9:45pm PROTHROMBIN TIME WITH INR PROTHROMBIN TIME(12.1-14.0 SEC) 12.3 SEC December 21, 2016 9:45pm 95648-0: INR 0.9 December 21, 2016 9:45pm PARTIAL THROMBOPLASTIN TIME PARTIAL THROMBOPLASTIN TIME(22.2-37.4 SEC) 28.3 SEC December 21, 2016 9:45pm UA WITH SCREEN FOR CULTURE COLOR,URINE YELLOW December 21, 2016 11:06pm CLARITY,URINE CLEAR December 21, 2016 11:06pm GLUCOSE, URINE(NEGATIVE MG/DL) NEGATIVE MG/DL December 21, 2016 11:06pm URINE BILIRUBIN(NEGATIVE) NEGATIVE December 21, 2016 11:06pm KETONES,URINE(NEGATIVE MG/DL) 5 MG/DL December 21, 2016 11:06pm URINE SPECIFIC GRAVITY(1.001-1.035) 1.018 December 21, 2016 11:06pm URINE BLOOD(NEGATIVE) NEGATIVE December 21, 2016 11:06pm URINE PH(5.0-9.0) 5.5 December 21, 2016 11:06pm URINE PROTEIN(Less than 20 MG/DL) 30 MG/DL December 21, 2016 11:06pm URINE UROBILINOGEN(0.2-1.0 MG/DL) 0.2-1.0 MG/DL December 21, 2016 11:06pm URINE NITRITE(NEGATIVE) NEGATIVE December 21, 2016 11:06pm LEUKOCYTE ESTERASE ,URINE(NEGATIVE) NEGATIVE December 21, 2016 11:06pm URINE RBCS(0-3 /HPF) 0-3 /HPF December 21, 2016 11:06pm URINE WBCS(0-3 /HPF) 4-7 /HPF December 21, 2016 11:06pm URINE EPITHELIAL CELLS(0-3 /HPF) 0-3 /HPF December 21, 2016 11:06pm URINE HYALINE CASTS(0-3 /LPF) 8-12 /LPF December 21, 2016 11:06pm URINE BACTERIA(NEGATIVE /HPF) 1+ /HPF December 21, 2016 11:06pm URINE CULTURE NOT INDICATED December 21, 2016 11:06pm URINE MICROSCOPIC REQUIRED YES December 21, 2016 11:06pm COMPLETE METABOLIC PROFILE GLUCOSE(70-110 MG/DL) 126 MG/DL December 22, 2016 12:11am BLOOD UREA NITROGEN(6-20 MG/DL) 21 MG/DL December 22, 2016 12:11am CREATININE(0.50-1.20 MG/DL) 0.85 MG/DL December 22, 2016 12:11am EST GLOMERULAR FILTRATION RATE(Greater than or equal to 60) Greater than or equal to 60 Result Comments: If the patient is of -[place] descent/extraction multiply the eGFR value by 1.212 to obtain the actual eGFR. >=60 mg/dL Normal 30-59 mg/dL Moderate Kidney Disease 15-29 mg/dL Severe Kidney Disease <15 mg/dL Kidney Failure December 22, 2016 12:11am BUN CREATININE RATIO(10.0-20.0 RATIO) 25.0 RATIO December 22, 2016 12:11am SODIUM(135-145 MMOL/L) 138 MMOL/L December 22, 2016 12:11am POTASSIUM(3.6-5.0 MMOL/L) 4.1 MMOL/L December 22, 2016 12:11am CHLORIDE(101-111 MMOL/L) 110 MMOL/L December 22, 2016 12:11am CO2(21-31 MMOL/L) 20 MMOL/L December 22, 2016 12:11am ANION GAP(8-18) 12 December 22, 2016 12:11am OSMO CALCULATED(270.0-290.0) 280.2 December 22, 2016 12:11am CALCIUM(8.5-10.5 MG/DL) 8.6 MG/DL December 22, 2016 12:11am BILIRUBIN,TOTAL(0.1-1.2 MG/DL) 0.5 MG/DL December 22, 2016 12:11am ALKALINE PHOSPHATASE(42-121 IU/L) 66 IU/L December 22, 2016 12:11am ASPARTATE AMINO TRANSFERASE(10-42 IU/L) 24 IU/L December 22, 2016 12:11am ALANINE AMINOTRANSFERASE(10-60 IU/L) 19 IU/L December 22, 2016 12:11am TOTAL PROTEIN(6.4-8.2 G/DL) 5.6 G/DL December 22, 2016 12:11am ALBUMIN(3.5-5.5 G/DL) 3.2 G/DL December 22, 2016 12:11am GLOBULIN(2.4-3.6) 2.4 December 22, 2016 12:11am ALBUMIN/GLOBULIN RATIO(0.9-1.8 RATIO) 1.3 RATIO December 22, 2016 12:11am CARDIAC TROPONIN I CARDIAC TROPONIN I(0.01-0.04 NG/ML) 0.02 NG/ML Result Comments: REFERENCE RANGES: NEGATIVE < 0.04 NG/ML POSSIBLE MYCARDIAL INVOLVEMENT >/=0.04 NG/ML INTERPRET TROPONIN I RESULT IN LIGHT OF THE TOTAL CLINICAL PRESENTATION INCLUDING CLINICAL HISTORY. ANY CONDITION RESULTING IN MYOCARDIAL INJURY CAN POTENTIALLY ELEVATE TROPONIN I LEVELS ABOVE EXPECTED NORMAL RANGES. NOTE NEW REFERENCE RANGE December 22, 2016 12:11am LIPASE LIPASE(22-51 U/L) 39 U/L December 22, 2016 12:11am ACETAMINOPHEN ACETAMINOPHEN(10-30 UG/ML) Less than 10.0 UG/ML December 21, 2016 9:54pm ALCOHOL ALCOHOL(0.0-5.0 MG/DL) 6.0 MG/DL December 21, 2016 9:54pm Allergies and Adverse Reactions Allergies and Adverse Reactions Patient Unit Number: [id number] Agent Type Reaction Severity Status METOCLOPRAMIDE HCL Drug Allergy Unknown Moderate Active KETOROLAC TROMETHAMINE Drug Allergy Unknown Unknown Active NSAIDS (NON-STEROIDAL ANTI-INFLAMMA Drug Adverse Reaction Unknown Moderate Active PROCHLORPERAZINE Drug Allergy Unknown Mild Active MORPHINE Drug Allergy HIVES Severe Active Problem List Problem List Visit/Account #[id number] (December 21, 2016 9:07pm - December 22, 2016 1: 11am) Active Problems: Code/Condition Comments Documented Start Date Documented Resolved Date Code (s) R42 DIZZINESS AND GIDDINESS December 22, 2016 N30.00 ACUTE CYSTITIS WITHOUT HEMATURIA December 22, 2016 Z79.51 CREATIVE DIRECTOR (CURRENT) USE OF INHALED STEROIDS December 22, 2016 Z88.5 ALLERGY STATUS TO NARCOTIC AGENT STATUS December 22, 2016 Z86.73 PRSNL HX OF TIA (TIA), 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EFICITS December 22, 2016 Plan of Care Plan Of Care Visit/Account #[id number] (December 21, 2016 9:07pm - December 22, 2016 1: 11am) Patient Instructions Return if worse or any concern. Follow-up with your PCP within the next week for further evaluation and care. Vital Signs Vital Signs No Vital Signs Data. Functional Status Functional and Cognitive Status No Functional Status Data Medications Inpatient/Ordered Medications - Medications administered during hospital visit Visit/Account #[id number] (December 21, 2016 9:07pm - December 22, 2016 1: 11am) Medication Route Sig/Schedule Precondition/Indication Comments/Instructions Codes IV Medication Carriers: NORMAL SALINE(SODIUM CHLORIDE) 1000 ML INJECTION Dose: 1000 ML INTRAVEN .Q1H (Rate: 1000 MLS/HR Duration: 1 HR) Carriers: NORMAL SALINE (SODIUM CHLORIDE) NDC: 60088207265 VALIUM(DiazePAM) 5 MG TAB Dose: 5 MG ORAL NOW Label Comments: MAY INCREASE FALL RISK VALIUM (DiazePAM) NDC: 88141568597 KEFLEX(CEPHALEXIN) 500 MG CAP Dose: 500 MG ORAL NOW KEFLEX (CEPHALEXIN) NDC: 25507198841 Discharge Medications - Medications that patient should continue to take. Review with physician Visit/Account #[id number] (December 21, 2016 9:07pm - December 22, 2016 1: 11am) Medication Route Sig/Schedule Precondition/Indication Comments/Instructions Codes KEFLEX(CEPHALEXIN MONOHYDRATE) 500 MG CAPSULE Dose: 500 MG ORAL Q6 KEFLEX (CEPHALEXIN MONOHYDRATE) NDC: 22607427524 History Of Encounters Encounters Visit/Account #[id number] (December 21, 2016 9:07pm - December 22, 2016 1: 11am) Account Status Physican Of Record Reason For Visit Visit Diagnosis Start Date/Time Stop Date/Time ER SULY SOUZA MD DIZZINESS Not Available Dec 21, 2016 9:07pm Dec 22, 2016 1:11am History of Procedures Procedure List No procedures recorded. Discharge Instructions Discharge Instructions Visit/Account #[id number] (December 21, 2016 9:07pm - December 22, 2016 1: 11am) DISCHARGE INSTRUCTIONS Physician Documentation Social History Social History No Social History Data. Immunizations Immunizations Patient Unit Number: [id number] Immunizations No immunizations recorded.
--- OUTSIDE RECORDS SUMMARY | 2018-02-04 14:46 | XMS REPORT | Continuity of Care Document ---
Author Author [facility] Organization [facility] Address Unknown Phone Unavailable Care Team Providers Care Valver Name Role Phone Charles Berry PP Insurance Providers Payer Name Policy Number Subscriber Name Relationship [facility] [id number] Pino Larsen 18 Self / Same As Patient Medicare A And B [id number] Pino Larsen Self / Same As Patient Advance Directives Directive Response Recorded Date Advanced Directives No 04/15/13 3:13pm Problems Medical Problem Onset Date Acute low back pain 04/15/13 Chronic back pain 04/15/13 Allergies, Adverse Reactions, Alerts Allergen Type Severity Reaction Last Updated prochlorperazine edisylate Allergy Severe 04/03/13 prochlorperazine maleate Allergy Severe 04/03/13 metoclopramide HCl Allergy Severe 04/03/13 morphine Allergy Severe 04/03/13 NSAIDS Allergy BLEEDING STOMACH 04/03/13 TORODOL Allergy Severe 04/03/13 Medications Medication Dose Units Route Sig Qty Days Clopidogrel Bisulfate (Plavix) DAILY Trazodone Hcl DAILY Famotidine (Pepcid) DAILY Valsartan (Diovan) DAILY Oxycodone Hcl/Acetaminophen (Percocet 10-325 Mg Tablet) 1 Each PO Q6H 20 Oxycodone Hcl/Acetaminophen (Percocet 10-650 Mg Tablet) SIX TIMES A DAY Immunizations Name Given Type Date Influenza Vaccine Received if Current 01/06/13 H Response Recorded Date/Time Status not known Unknown Results No Known Relevant Diagnostic Tests, Laboratory Data and/or Discharge Summary. Procedures Procedure Code Date EMERGENCY DEPT VISIT 26407 04/03/13 A9270 04/03/13 Encounters Encounter Location Date/Time Departed Emergency Room [facility] 04/15/13 3:15pm
--- OUTSIDE RECORDS SUMMARY | 2018-02-04 14:46 | XMS REPORT | Continuity Of Care Document ---
Author Author [facility] Organization [facility] Address [address] [place] [address] Phone Care Team Providers Care Senior Treasury Consultant Name Role Phone UNASSIGNED, ED PHYSICIAN Unavailable Unavailable MESSI ROMERO, RICHARD Castro PP SAMANTHA ROMERO, KENAN Castro CP Results Lab Results Visit/Account #[id number] (June 11, 2014 5:40pm - June 11, 2014 8:36pm) Test Result Date/Time 96924-0: COMPLETE BLOOD COUNT WITH DIFF WHITE BLOOD COUNT(4.0-11.0 10E3/UL) 8.9 10E3/UL June 11, 2014 6:55pm RED BLOOD COUNT(4.50-5.90 10E6/UL) 3.43 10E6/UL June 11, 2014 6:55pm HEMOGLOBIN(13.5-17.5 G/DL) 9.5 G/DL June 11, 2014 6:55pm HEMATOCRIT(41.0-53.0 %) 31.0 % June 11, 2014 6:55pm 63868-9: MEAN CORPUSCULAR VOLUME(82.0-100.0 FL) 90.4 FL June 11, 2014 6:55pm 00111-7: MEAN CORPUSCULAR HEMOGLOBIN(26.0-34.0 PG) 27.7 PG June 11, 2014 6:55pm MEAN CORPUSCULAR HGB CONC(31.5-36.5 G/DL) 30.6 G/DL June 11, 2014 6:55pm RED CELL DISTRIBUTION WIDTH(11.5-14.5 %) 15.7 % June 11, 2014 6:55pm 777-3: PLATELET COUNT(150-450 10E3/UL) 156 10E3/UL June 11, 2014 6:55pm MEAN PLATELET VOLUME(8.2-12.4 FL) 9.6 FL June 11, 2014 6:55pm 770-8: NEUTROPHILS % (AUTO)(40-70 %) 75 % June 11, 2014 6:55pm LYMPHOCYTES % (AUTO)(15-45 %) 14 % June 11, 2014 6:55pm 5905-5: MONOCYTES % (AUTO)(2-10 %) 9 % June 11, 2014 6:55pm 713-8: EOSINOPHILS % (AUTO)(0-6 %) 0 % June 11, 2014 6:55pm 706-2: BASOPHILS % (AUTO)(0-1 %) 0 % June 11, 2014 6:55pm 11113-4: IMMATURE GRANS % (AUTO)(0-0 %) 0 % June 11, 2014 6:55pm NUCLEATED RBCS (AUTO)(0-0 %) 0 % June 11, 2014 6:55pm 751-8: NEUTROPHILS # (AUTO)(2.5-7.5 10E3/UL) 6.7 10E3/UL June 11, 2014 6:55pm 28780-8: LYMPHOCYTES # (AUTO)(1.0-4.0 10E3/UL) 1.3 10E3/UL June 11, 2014 6:55pm 742-7: MONOCYTES # (AUTO)(0.2-0.8 10E3/UL) 0.8 10E3/UL June 11, 2014 6:55pm 711-2: EOSINOPHILS # (AUTO)(0.0-0.4 10E3/UL) 0.0 10E3/UL June 11, 2014 6:55pm 704-7: BASOPHILS # (AUTO)(0.0-0.2 10E3/UL) 0.0 10E3/UL June 11, 2014 6:55pm IMMATURE GRANS # (AUTO)(0.0-0.0 10E3/UL) 0.0 10E3/UL June 11, 2014 6:55pm DIFF TYPE AUTOMATED June 11, 2014 6:55pm 46757-6: ERYTHROCYTE SEDIMENTATION RATE 32436-4: ERYTHROCYTE SEDIMENTATION RATE(0-15 MM/HR) 7 MM/HR June 11, 2014 7:41pm 90822-6: PROTHROMBIN TIME WITH INR PROTHROMBIN TIME(12.1-14.0 SEC) 35.2 SEC June 11, 2014 7:03pm 84401-0: INR 3.44 Result Comments: INR reference interval applies to patients on anticoagulant therapy. Suggested INR therapeutic range for oral anticoagulant therapy: (Stabilized anticoagulated patients) Routine Therapy: 2.0 to 3.0 Recurrent Myocardial Infarction: 2.5 to 3.5 Mechanical Prosthetic Valves: 2.5 to 3.5 June 11, 2014 7:03pm PARTIAL THROMBOPLASTIN TIME PARTIAL THROMBOPLASTIN TIME(22.2-37.4 SEC) 35.9 SEC June 11, 2014 7:03pm UA WITH SCREEN FOR CULTURE 5778-6: COLOR,URINE YELLOW June 11, 2014 7:17pm 69332-8: CLARITY,URINE CLEAR June 11, 2014 7:17pm GLUCOSE, URINE(NEGATIVE MG/DL) NEGATIVE MG/DL June 11, 2014 7:17pm URINE BILIRUBIN(NEGATIVE) NEGATIVE June 11, 2014 7:17pm 63132-6: KETONES,URINE(NEGATIVE MG/DL) TRACE MG/DL June 11, 2014 7:17pm 2965-2: URINE SPECIFIC GRAVITY(1.001-1.035) 1.020 June 11, 2014 7:17pm 75378-6: URINE BLOOD(NEGATIVE) MODERATE June 11, 2014 7:17pm 2756-5: URINE PH(5.0-9.0) 6.0 June 11, 2014 7:17pm URINE PROTEIN(Less than 20 MG/DL) NEGATIVE MG/DL June 11, 2014 7:17pm URINE UROBILINOGEN(0.2-1.0 MG/DL) 0.2 MG/DL June 11, 2014 7:17pm URINE NITRITE(NEGATIVE) NEGATIVE June 11, 2014 7:17pm 5799-2: LEUKOCYTE ESTERASE ,URINE(NEGATIVE) NEGATIVE June 11, 2014 7:17pm 630-4: URINE CULTURE NOT INDICATED June 11, 2014 7:17pm URINE MICROSCOPIC REQUIRED YES June 11, 2014 7:17pm URINE WBCS(/HPF) 0-3 /HPF June 11, 2014 7:22pm 02499-4: URINE RBCS(/HPF) 21-50 /HPF June 11, 2014 7:22pm 73709-9: URINE EPITHELIAL CELLS(/HPF) NONE SEEN /HPF June 11, 2014 7:22pm BACTERIA,URINE(/HPF) TRACE /HPF June 11, 2014 7:22pm URINE CRYSTALS(/HPF) NONE SEEN /HPF June 11, 2014 7:21pm URINE CASTS(/LPF) NONE SEEN /LPF June 11, 2014 7:21pm URINE COMMENTS NONE June 11, 2014 7:21pm 02709-3: COMPLETE METABOLIC PROFILE 55172-0: GLUCOSE(70-110 MG/DL) 74 MG/DL June 11, 2014 7:10pm BLOOD UREA NITROGEN(6-20 MG/DL) 30 MG/DL June 11, 2014 7:10pm 68939-5: CREATININE(0.50-1.20 MG/DL) 1.06 MG/DL June 11, 2014 7:10pm 55822-2: EST GLOMERULAR FILTRATION RATE(Greater than or equal to 60) Greater than or equal to 60 Result Comments: If the patient is of -[place] Citizen descent/extraction multiply the eGFR value by 1.212 to obtain the actual eGFR. >=60 mg/dL Normal 30-59 mg/dL Moderate Kidney Disease 15-29 mg/dL Severe Kidney Disease <15 mg/dL Kidney Failure June 11, 2014 7:10pm BUN CREATININE RATIO(10.0-20.0 RATIO) 28.0 RATIO June 11, 2014 7:10pm 61131-4: SODIUM(135-145 MMOL/L) 133 MMOL/L June 11, 2014 7:10pm 20943-3: POTASSIUM(3.6-5.0 MMOL/L) 3.7 MMOL/L June 11, 2014 7:10pm 80517-6: CHLORIDE(101-111 MMOL/L) 106 MMOL/L June 11, 2014 7:10pm 8-9: CO2(21-31 MMOL/L) 17.0 MMOL/L June 11, 2014 7:10pm 09606-9: ANION GAP(8-18) 14 June 11, 2014 7:10pm OSMO CALCULATED(270.0-290.0) 271.2 June 11, 2014 7:10pm CALCIUM(8.5-10.5 MG/DL) 8.2 MG/DL June 11, 2014 7:10pm BILIRUBIN,TOTAL(0.1-1.2 MG/DL) 0.6 MG/DL June 11, 2014 7:10pm ALKALINE PHOSPHATASE(42-121 IU/L) 42 IU/L June 11, 2014 7:10pm ASPARTATE AMINO TRANSFERASE(10-42 IU/L) 25 IU/L June 11, 2014 7:10pm ALANINE AMINOTRANSFERASE(10-60 IU/L) 13 IU/L June 11, 2014 7:10pm 35346-0: TOTAL PROTEIN(6.4-8.2 G/DL) 5.6 G/DL June 11, 2014 7:10pm ALBUMIN(3.5-5.5 G/DL) 2.9 G/DL June 11, 2014 7:10pm 2336-6: GLOBULIN(2.4-3.6) 2.7 June 11, 2014 7:10pm 1759-0: ALBUMIN/GLOBULIN RATIO(0.9-1.8 RATIO) 1.1 RATIO June 11, 2014 7:10pm 93127-9: CARDIAC TROPONIN I 23888-1: CARDIAC TROPONIN I(0.01-0.04 NG/ML) 0.04 NG/ML Result Comments: REFERENCE RANGES: NEGATIVE < 0.04 NG/ML POSSIBLE MYCARDIAL INVOLVEMENT >/=0.04 NG/ML INTERPRET TROPONIN I RESULT IN LIGHT OF THE TOTAL CLINICAL PRESENTATION INCLUDING CLINICAL HISTORY. ANY CONDITION RESULTING IN MYOCARDIAL INJURY CAN POTENTIALLY ELEVATE TROPONIN I LEVELS ABOVE EXPECTED NORMAL RANGES. NOTE NEW REFERENCE RANGE June 11, 2014 7:17pm ALCOHOL ALCOHOL(0.0-5.0 MG/DL) 89.6 MG/DL June 11, 2014 7:05pm DRUGS OF ABUSE, URINE 80702-4: OPIATE SCREEN,URINE(NEGATIVE) NEGATIVE June 11, 2014 7:27pm 12774-5: BARBITURATES SCREEN, URINE(NEGATIVE) NEGATIVE June 11, 2014 7:27pm 20894-4: AMPHETAMINE SCREEN,URINE(NEGATIVE) NEGATIVE June 11, 2014 7:27pm BENZODIAZEPINES SCREEN,URINE(NEGATIVE) NEGATIVE June 11, 2014 7:27pm COCAINE SCREEN, URINE(NEGATIVE) NEGATIVE June 11, 2014 7:27pm CANNABINOID SCREEN,URINE(NEGATIVE) NEGATIVE June 11, 2014 7:27pm Allergies and Adverse Reactions Allergies and Adverse Reactions Patient Unit Number: [id number] Agent Type Reaction Severity Status Date ANTI [...] Active Unknown Date Problem List Problem List Visit/Account #[id number] (June 11, 2014 5:40pm - June 11, 2014 8:36pm) Acute Problems: Code/Condition Comments Documented Start Date Documented Resolved Date Code (s) Facial pain, acute ICD10: R51 Acute facial pain ICD9: 784.0 Acute facial pain SNOMED: 86016995 Acute facial pain Supratherapeutic INR ICD10: R79.1 Elevated INR (international normalized ratio) ICD9: 790.92 Elevated INR (international normalized ratio) SNOMED: 420171317 Elevated INR (international normalized ratio) Epistaxis ICD10: R04.0 Epistaxis ICD9: 784.7 Epistaxis SNOMED: 66332693 Epistaxis Anemia ICD10: D64.9 Anemia ICD9: 285.9 Anemia SNOMED: 496511412 Anemia Plan of Care Plan Of Care Visit/Account #[id number] (June 11, 2014 5:40pm - June 11, 2014 8:36pm) Instructions/Comments: GENERAL INSTRUCTIONS IMPORTANT: We examined and treated you today on an emergency basis only. This was not a substitute for, or an effort to provide, complete medical care. In most cases, you must let your doctor check you again. Tell your doctor about any new or lasting problems. We cannot recognize and treat all injuries or illnesses in one Emergency Department visit. All xrays are overread by radiology, and you will be notified if there are any new findings. Also, you will be notified of any abnormal lab results that are incomplete at this time. If you have a primary doctor, their office will be notified via fax of your visit. You will need to call your primary doctor's office as soon as possible to schedule your recommended follow-up visit. After you leave, you should follow the instructions included. Call the [facility] Emergency Department if you have any problems or concerns You can reach [facility] ED at , [facility], [place] [address]. 1. Return for any new or worse symptoms 2. Follow up with your Primary Doctor on Sunday 3. Hold Coumadin for one day and then resume as planned Vital Signs Vital Signs Visit/Account #[id number] (June 11, 2014 5:40pm - June 11, 2014 8:36pm) Label First Result Last Result 8310-5: Fahrenheit Body Temperature 97.9 [degF] June 11, 2014 8:36pm 97.9 [degF] June 11, 2014 8:36pm 8480-6: BP Systolic 123/ mmHg June 11, 2014 5:40pm 66/ mm[Hg] June 11, 2014 8:36pm 8867-4: Heart Rate 132 /min June 11, 2014 5:40pm 95 /min June 11, 2014 8:36pm 9279-1: Respiratory Rate 28 /min June 11, 2014 5:40pm 18 /min June 11, 2014 8:36pm Unmapped Query Mnemonic (RESP.SAT) Saturation 96 % June 11, 2014 5:40pm 96 % June 11, 2014 5:40pm Functional Status Functional Status No Functional Status Data Medications Inpatient/Ordered Medications Visit/Account #[id number] (June 11, 2014 5:40pm - June 11, 2014 8:36pm) Medication Route Sig/Schedule Precondition/Indication Comments/Instructions Codes SUBLIMAZE INJ(FentaNYL CITRATE) 100 MCG/2 ML INJECTION Total Dose: 50 ML INTRAVEN NOW: NOW Rx Order Comments: Order placed as verified: Dose Warnings differ from order entry specialist Dose Warnings differ from order entry specialist Label Comments: GIVE BY SLOW PUSH OVER 2-5 MIN MAY INCREASE FALL RISK SUBLIMAZE INJ (FentaNYL CITRATE) RxNorm: [id number] SUBLIMAZE INJ (FentaNYL CITRATE) [facility] [id number] NORCO 5-325(HYDROcodone BIT/ACETAMINOPHEN) 1 TAB TAB Total Dose: 1 TAB ORAL NOW: NOW Rx Order Comments: Order placed as verified: Dose Warnings differ from order entry specialist Dose Warnings differ from order entry specialist Label Comments: <<may be substituted for 5/500>> REC MAX DAILY DOSE ACETAMINOPHEN: 4000 MG/24 HR MAY INCREASE FALL RISK NORCO 5-325 (HYDROcodone BIT/ACETAMINOPHEN) RxNorm: [id number] NORCO 5-325 (HYDROcodone BIT/ACETAMINOPHEN) NDC: 78424825543 Discharge Medications Visit/Account #[id number] (June 11, 2014 5:40pm - June 11, 2014 8:36pm) Medication Route Sig/Schedule Precondition/Indication Comments/Instructions Codes OXYCODONE HCL/ACETAMINOPHEN 5-325(OxyCODONE HCL/ACETAMINOPHEN) 1 EACH TABLET ORAL Q4WA: EVERY 4 HRS WHILE AWAKE OXYCODONE HCL/ACETAMINOPHEN 5-325 (OxyCODONE HCL/ACETAMINOPHEN) RxNorm: [id number] OXYCODONE HCL/ACETAMINOPHEN 5-325 (OxyCODONE HCL/ACETAMINOPHEN) NDC: 96767084794 History Of Encounters Encounters Visit/Account #[id number] (June 11, 2014 5:40pm - June 11, 2014 8:36pm) Account Status Physican Of Record Reason For Visit Visit Diagnosis Start Date/Time Stop Date/Time ER KENAN SINGH MD R FACIAL PAIN Not Available Jun 11, 2014 5:40pm Jun 11, 2014 8:36pm History of Procedures Procedure List No Procedures Discharge Instructions Discharge Instructions Visit/Account #[id number] (June 11, 2014 5:40pm - June 11, 2014 8:36pm) No Discharge Instructions Reports. Social History Social History Visit/Account #[id number] (June 11, 2014 5:40pm - June 11, 2014 8:36pm) Smoking Status Heavy tobacco smoker June 11, 2014 5:45pm Immunizations Immunizations Patient Unit Number: [id number] Immunizations No Immunizations Administered
--- OUTSIDE RECORDS SUMMARY | 2018-02-04 14:46 | XMS REPORT | Continuity of Care Document ---
Author Author Kasie Bellamy MD [facility] Address [address] [place] [address] Phone Care Team Providers Care Guest Service Supervisor Name Role Phone Doug Hernandez PP Unavailable Payers Payer name Insurance type Covered democrat ID Authorization(s) Unknown Problems Condition Effective Dates (start - stop) Clinical Status Anxiety - *Acute Influenza Vaccine - Hypertension, Benign - *Chronic [...] Dosage Effective Dates (start - stop) Status sucralfate 1 gram tablet take 1 tablet [...] every day 20 MG - Active Nasal [place] (oxymetazoline) 0.05 % aerosol spray 2 spray [...] day as needed for anxiety - Active Advair Diskus 250 mcg-50 mcg/dose [...] Height Weight Pulse Rate Blood Pressure Temperature /18:32:00 72.25 in 130.00 lbs 94 /min 130/60 mm[Hg] 97.8 F Procedures Procedure Date Unknown Encounters Encounter Location Date Patient Visit [facility] Patient Visit [facility] Patient [facility] Patient [facility] Patient [facility] Patient [facility] Patient [facility] Patient [facility] Patient [facility] Patient [facility] Patient [facility] Patient [facility] Patient [facility] Patient Visit [facility] Patient Visit [facility] Patient Visit [facility] Advance Directives Directive Effective Date Unknown
--- OUTSIDE RECORDS SUMMARY | 2018-02-04 14:47 | XMS REPORT | Continuity of Care Document ---
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 - *Controlled Lumbago - *Controlled CHRONIC PAIN NEC - *Chronic COPD - *Chronic GERD - *Chronic Depression - *Chronic Influenza Vaccine - Hypertension, Benign [...] Hypertension, Benign - *Chronic COPD - *Chronic Carotid Artery Disease, Unilateral - [...] every day 20 MG - Active Nasal [place] (oxymetazoline) 0.05 % aerosol spray 2 spray [...] Height Weight Pulse Rate Blood Pressure Temperature /13:57:00 72.25 in 132.00 lbs 140/60 mm[Hg] 97.0 F Procedures Procedure Date Unknown Encounters Encounter Location Date Patient Visit [facility] Patient Visit [facility] Patient Visit [facility] Patient Visit [facility] Patient Visit [facility] Patient Visit [facility] Patient Visit [facility] Patient Visit [facility] Patient Visit [facility] Patient Visit [facility] Patient Visit [facility] Patient Visit [facility] Patient Visit [facility] Patient Visit [facility] Patient Visit [facility] Patient Visit [facility] Advance Directives Directive Effective Date Unknown
--- OUTSIDE RECORDS SUMMARY | 2018-02-04 14:47 | XMS REPORT | Continuity of Care Document ---
Author Author [facility] Address Unknown Phone Unavailable Care Team Providers Care Botany Teacher Name Role Phone Charles Berry PP Insurance Providers Payer Name Policy Number Subscriber Name Relationship [facility] [id number] Pino Larsen 18 Self / Same As Patient Medicare A And B [id number] Pino Larsen Self / Same As Patient Advance Directives Directive Response Recorded Date Advanced Directives Not applicable 2:58am Problems Medical Problem Onset Date Acute low back pain 04/03/13 Allergies, Adverse Reactions, Alerts Allergen Type Severity Reaction Last Updated prochlorperazine edisylate Allergy Severe 04/03/13 prochlorperazine maleate Allergy Severe 04/03/13 metoclopramide HCl Allergy Severe 04/03/13 morphine Allergy Severe 04/03/13 NSAIDS Allergy BLEEDING STOMACH 04/03/13 TORODOL Allergy Severe 04/03/13 Medications Medication Dose Units Route Sig Qty Days Oxycodone Hcl/Acetaminophen (Percocet 10-325 Mg Tablet) 1 Each PO Q6H 20 Oxycodone Hcl/Acetaminophen (Percocet 10-650 Mg Tablet) SIX TIMES A DAY Clopidogrel Bisulfate (Plavix) DAILY Trazodone Hcl DAILY Famotidine (Pepcid) DAILY Valsartan (Diovan) DAILY Immunizations Name Given Type Date Influenza Vaccine Received if Current 01/06/13 H Response Recorded Date/Time Status not known Unknown Results No Known Relevant Diagnostic Tests, Laboratory Data and/or Discharge Summary. Encounters Encounter Location Date/Time Departed Emergency Room [facility] 04/03/13 3:05am
--- OUTSIDE RECORDS SUMMARY | 2018-02-04 14:47 | XMS REPORT | Continuity of Care Document ---
Author Author [facility]IS Organization [facility] Address Unknown Phone Unavailable Care Team Providers Care Computer Networking Instructor Name Role Phone Charles Berry PP Insurance Providers Payer Name Policy Number Subscriber Name Relationship [facility] [id number] Pino Larsen 18 Self / Same As Patient Medicare A And B [id number] Pino Larsen 18 Self / Same As Patient Advance Directives Directive Response Recorded Date Advanced Directives Not applicable 9:29pm Problems Medical Problem Onset Date Acute low back pain 04/15/13 Chronic low back pain 04/28/13 Chronic back pain 04/15/13 Allergies, Adverse Reactions, [...] Type Date Influenza Vaccine Received if Current 02/12/13 H Response Recorded Date/Time Status not known Unknown Results No Known Relevant Diagnostic Tests, Laboratory Data and/or Discharge Summary. Procedures Procedure Code Date EMERGENCY DEPT VISIT 25169 04/03/13 [id number] 04/03/13 EMERGENCY DEPT VISIT 08768 04/15/13 Encounters Encounter Location Date/Time Departed Emergency Room [facility] 04/28/13 9:21pm
--- OUTSIDE RECORDS SUMMARY | 2018-02-04 14:47 | XMS REPORT | Continuity Of Care Document ---
Author Author [facility] Organization [facility] Address [address] [place] [address] Phone Care Team Providers Care Clinical Pharmacist Name Role Phone UNASSIGNED, ED PHYSICIAN Unavailable Unavailable NON STAFF, PROVIDER Unavailable Unavailable NOÉ SHELTON MD CP Results Results No Result Data Allergies and Adverse Reactions Allergies and Adverse Reactions Patient Unit Number: [id number] Agent Type Reaction Severity Status Date ANTI [...] Unknown Date Problem List Problem List Visit/Account #[id number] (July 15, 2013 2:40pm - July 15, 2013 5:50pm) Acute Problems: Code/Condition Comments Documented Start Date Documented Resolved Date Code (s) Fall at home ICD10: W19.XXXA Fall at home ICD10: Y92.099 Fall at home ICD9: E849.0 Fall at home ICD9: E888.9 Fall at home SNOMED: 69622835 Fall at home Left hip pain ICD10: M25.552 Left hip pain ICD9: 719.45 Left hip pain SNOMED: 33470416 Left hip pain Neck pain ICD10: M54.2 Neck pain ICD9: 723.1 Neck pain SNOMED: 17585480 Neck pain Plan of Care Plan Of Care Visit/Account #[id number] (July 15, 2013 2:40pm - July 15, 2013 5:50pm) Instructions/Comments: Contusion How to Prevent Falls Ice to tender areas, use cloth between ice and skin. Tylenol, per bottle instructions, as needed for pain. Use cane at all times while walking, even in the home. Return to ED with problems or concerns. You need to follow-up with your PCP for any stronger pain medications. Vital Signs Vital Signs Visit/Account #[id number] (July 15, 2013 2:40pm - July 15, 2013 5:50pm) Label First Result Last Result 3141-9: Weight Measured 123 lbs July 15, 2013 2:39pm 55.172144 kg July 15, 2013 2:39pm 8310-5: Body Temperature 98.1 degF July 15, 2013 2:39pm 8310-5: Fahrenheit Body Temperature 97.5 [degF] July 15, 2013 5:37pm 8480-6: BP Systolic 163/ mmHg July 15, 2013 2:39pm 67/ mm[Hg] July 15, 2013 5:37pm 8867-4: Heart Rate 94 /min July 15, 2013 2:39pm 63 /min July 15, 2013 5:37pm 9279-1: Respiratory Rate 20 /min July 15, 2013 2:39pm 22 /min July 15, 2013 5:37pm Unmapped Query Mnemonic (RESP.SAT) Saturation 97 % July 15, 2013 2:39pm 97 % July 15, 2013 2:39pm Functional Status Functional Status No Functional Status Data Medications Inpatient/Ordered Medications Visit/Account #[id number] (July 15, 2013 2:40pm - July 15, 2013 5:50pm) Medication Route Sig/Schedule Precondition/Indication Comments/Instructions Codes SUBLIMAZE INJ(FentaNYL CITRATE) 100 MCG/2 ML INJECTION Total Dose: 50 ML INTRAVEN NOW: NOW Rx Order Comments: Order placed as verified: Dose Warnings differ from radiology orderly Dose Warnings differ from radiology orderly Label Comments: GIVE BY SLOW PUSH OVER 2-5 MIN MAY INCREASE FALL RISK SUBLIMAZE INJ (FentaNYL CITRATE) RxNorm: [id number] SUBLIMAZE INJ (FentaNYL CITRATE) [facility]: [id number] SUBLIMAZE INJ(FentaNYL CITRATE) 100 MCG/2 ML INJECTION Total Dose: 50 ML INTRAVEN NOW: NOW Rx Order Comments: Order placed as verified: Dose Warnings differ from radiology orderly Dose Warnings differ from radiology orderly Label Comments: GIVE BY SLOW PUSH OVER 2-5 MIN MAY INCREASE FALL RISK SUBLIMAZE INJ (FentaNYL CITRATE) RxNorm: [id number] SUBLIMAZE INJ (FentaNYL CITRATE) NDC: [id number] History Of Encounters Encounters Visit/Account #[id number] (July 15, 2013 2:40pm - July 15, 2013 5:50pm) Account Status Physican Of Record Reason For Visit Visit Diagnosis Start Date/Time Stop Date/Time ER NOÉ SHELTON MD FALL/HIP AND SHOULDER PAIN Not Available Jul 15, 2013 2:40pm Jul 15, 2013 5:50pm History of Procedures Procedure List No Procedures Discharge Instructions Discharge Instructions Visit/Account #[id number] (July 15, 2013 2:40pm - July 15, 2013 5:50pm) No Discharge Instructions Reports. Social History Social History Visit/Account #[id number] (July 15, 2013 2:40pm - July 15, 2013 5:50pm) Smoking Status Heavy tobacco smoker July 15, 2013 2:41pm Immunizations Immunizations Patient Unit Number: [id number] Immunizations No Immunizations Administered
--- OUTSIDE RECORDS SUMMARY | 2018-02-04 14:47 | XMS REPORT | Continuity Of Care Document ---
Author Author [facility] Organization [facility] Address [address] [place] [address] Phone Care Team Providers Care Bushel Worker Name Role Phone DAILY NISHANT ROMERO Unavailable UNASSIGNED, ED PHYSICIAN Unavailable Unavailable MARVIN MERCEDES DO PP MURIEL ROMERO, RONY Bond CP [phone] Results Lab Results Visit/Account #[id number] (September 01, 2013 6:08pm - September 01, 2013 9:00pm) Test Result Date/Time 64608-3: COMPLETE BLOOD COUNT WITH DIFF WHITE BLOOD COUNT(4.0-11.0 10E3/UL) 9.6 10E3/UL September 01, 2013 6:44pm RED BLOOD COUNT(4.50-5.90 10E6/UL) 4.60 10E6/UL September 01, 2013 6:44pm HEMOGLOBIN(13.0-18.0 G/DL) 14.6 G/DL September 01, 2013 6:44pm HEMATOCRIT(41.0-53.0 %) 42.8 % September 01, 2013 6:44pm 98651-5: MEAN CORPUSCULAR VOLUME(82.0-100.0 FL) 93.0 FL September 01, 2013 6:44pm 43912-6: MEAN CORPUSCULAR HEMOGLOBIN(26.0-34.0 PG) 31.7 PG September 01, 2013 6:44pm MEAN CORPUSCULAR HGB CONC(31.5-36.5 G/DL) 34.1 G/DL September 01, 2013 6:44pm RED CELL DISTRIBUTION WIDTH(11.5-14.5 %) 13.1 % September 01, 2013 6:44pm 777-3: PLATELET COUNT(150-450 10E3/UL) 243 10E3/UL September 01, 2013 6:44pm MEAN PLATELET VOLUME(8.2-12.4 FL) 9.6 FL September 01, 2013 6:44pm 770-8: NEUTROPHILS % (AUTO)(40-70 %) 69 % September 01, 2013 6:45pm LYMPHOCYTES % (AUTO)(15-45 %) 22 % September 01, 2013 6:45pm 5905-5: MONOCYTES % (AUTO)(2-10 %) 7 % September 01, 2013 6:45pm 713-8: EOSINOPHILS % (AUTO)(0-6 %) 1 % September 01, 2013 6:45pm 706-2: BASOPHILS % (AUTO)(0-1 %) 0 % September 01, 2013 6:45pm 98644-0: IMMATURE GRANS % (AUTO)(0-0 %) 0 % September 01, 2013 6:45pm 751-8: NEUTROPHILS # (AUTO)(2.5-7.5 10E3/UL) 6.6 10E3/UL September 01, 2013 6:45pm 30326-4: LYMPHOCYTES # (AUTO)(1.0-4.0 10E3/UL) 2.1 10E3/UL September 01, 2013 6:45pm 742-7: MONOCYTES # (AUTO)(0.2-0.8 10E3/UL) 0.6 10E3/UL September 01, 2013 6:45pm 711-2: EOSINOPHILS # (AUTO)(0.0-0.4 10E3/UL) 0.1 10E3/UL September 01, 2013 6:45pm 704-7: BASOPHILS # (AUTO)(0.0-0.2 10E3/UL) 0.0 10E3/UL September 01, 2013 6:45pm IMMATURE GRANS # (AUTO)(0.0-0.0 10E3/UL) 0.0 10E3/UL September 01, 2013 6:45pm DIFF TYPE AUTOMATED September 01, 2013 6:45pm 84337-6: PROTHROMBIN TIME WITH INR PROTHROMBIN TIME(12.1-14.0 SEC) 11.9 SEC September 01, 2013 6:59pm 66111-2: INR 0.89 Result Comments: INR reference interval applies to patients on anticoagulant therapy. Suggested INR therapeutic range for oral anticoagulant therapy: (Stabilized anticoagulated patients) Routine Therapy: 2.0 to 3.0 Recurrent Myocardial Infarction: 2.5 to 3.5 Mechanical Prosthetic Valves: 2.5 to 3.5 September 01, 2013 6:59pm PARTIAL THROMBOPLASTIN TIME PARTIAL THROMBOPLASTIN TIME(22.2-37.4 SEC) 20.1 SEC September 01, 2013 6:59pm 25838-2: COMPLETE METABOLIC PROFILE 11536-7: GLUCOSE(70-110 MG/DL) 82 MG/DL September 01, 2013 7:44pm BLOOD UREA NITROGEN(6-20 MG/DL) 21 MG/DL September 01, 2013 7:44pm 98835-3: CREATININE(0.50-1.20 MG/DL) 0.69 MG/DL September 01, 2013 7:44pm 18994-4: EST GLOMERULAR FILTRATION RATE(Greater than or equal to 60) Greater than or equal to 60 Result Comments: If the patient is of -[place] descent/extraction multiply the eGFR value by 1.212 to obtain the actual eGFR. >=60 mg/dL Normal 30-59 mg/dL Moderate Kidney Disease 15-29 mg/dL Severe Kidney Disease <15 mg/dL Kidney Failure September 01, 2013 7:44pm BUN CREATININE RATIO(10.0-20.0 RATIO) 30.0 RATIO September 01, 2013 7:44pm 02983-6: SODIUM(135-145 MMOL/L) 139 MMOL/L September 01, 2013 7:44pm 12499-7: POTASSIUM(3.6-5.0 MMOL/L) 3.8 MMOL/L September 01, 2013 7:44pm 07966-0: CHLORIDE(101-111 MMOL/L) 106 MMOL/L September 01, 2013 7:44pm 8-9: CO2(21-31 MMOL/L) 24.0 MMOL/L September 01, 2013 7:44pm 73795-7: ANION GAP(8-18) 13 September 01, 2013 7:44pm OSMO CALCULATED(270.0-290.0) 279.6 September 01, 2013 7:44pm CALCIUM(8.5-10.5 MG/DL) 8.9 MG/DL September 01, 2013 7:44pm 39833-8: BILIRUBIN,TOTAL(0.1-1.2 MG/DL) 0.4 MG/DL September 01, 2013 7:44pm ALKALINE PHOSPHATASE(42-121 U/L) 78 U/L September 01, 2013 7:44pm ASPARTATE AMINO TRANSFERASE(10-42 U/L) 17 U/L September 01, 2013 7:44pm ALANINE AMINOTRANSFERASE(10-60 U/L) 17 U/L September 01, 2013 7:44pm 36511-4: TOTAL PROTEIN(6.4-8.2 G/DL) 6.6 G/DL September 01, 2013 7:44pm ALBUMIN(3.5-5.5 G/DL) 3.6 G/DL September 01, 2013 7:44pm 2336-6: GLOBULIN(2.4-3.6) 3.0 September 01, 2013 7:44pm 1759-0: ALBUMIN/GLOBULIN RATIO(0.9-1.8 RATIO) 1.2 RATIO September 01, 2013 7:44pm 53173-1: [place] I [address]-3: CARDIAC TROPONIN I(0.01-0.04 NG/ML) 0.01 NG/ML Result Comments: REFERENCE RANGES: NEGATIVE < 0.04 NG/ML POSSIBLE MYCARDIAL INVOLVEMENT >/=0.04 NG/ML INTERPRET TROPONIN I RESULT IN LIGHT OF THE TOTAL CLINICAL PRESENTATION INCLUDING CLINICAL HISTORY. ANY CONDITION RESULTING IN MYOCARDIAL INJURY CAN POTENTIALLY ELEVATE TROPONIN I LEVELS ABOVE EXPECTED NORMAL RANGES. NOTE NEW REFERENCE RANGE September 01, 2013 7:44pm Allergies and Adverse Reactions Allergies and Adverse Reactions Patient Unit Number: [id number] Agent Type Reaction Severity Status Date ANTI [...] Unknown Date Problem List Problem List Visit/Account #[id number] (September 01, 2013 6:08pm - September 01, 2013 9:00pm) Acute Problems: Code/Condition Comments Documented Start Date Documented Resolved Date Code (s) Pleurisy ICD10: R09.1 Pleurisy ICD9: 511.0 Pleurisy SNOMED: 700497883 Pleurisy Plan of Care Plan Of Care Visit/Account #[id number] (September 01, 2013 6:08pm - September 01, 2013 9:00pm) Instructions/Comments: DI for Pleurisy Continue routine medications as prescribed. Warm moist packs to the left chest wall 15-30 minutes at a time 3 or 4 times daily. May also use Tylenol for pain Vital Signs Vital Signs Visit/Account #[id number] (September 01, 2013 6:08pm - September 01, 2013 9:00pm) Label First Result Last Result 3141-9: Weight Measured 127 lbs September 01, 2013 6:07pm 57.101060 kg September 01, 2013 6:07pm 8310-5: Body Temperature 97.3 degF September 01, 2013 6:07pm 97.3 degF September 01, 2013 6:07pm 8480-6: BP Systolic 158/ mmHg September 01, 2013 6:07pm 83/ mm[Hg] September 01, 2013 8:13pm 8867-4: Heart Rate 110 /min September 01, 2013 6:07pm 78 /min September 01, 2013 8:13pm 9279-1: Respiratory Rate 28 /min September 01, 2013 6:07pm 14 /min September 01, 2013 8:13pm Unmapped Query Mnemonic (RESP.SAT) Saturation 97 % September 01, 2013 6:07pm 97 % September 01, 2013 6:07pm Functional Status Functional Status No Functional Status Data Medications Inpatient/Ordered Medications Visit/Account #[id number] (September 01, 2013 6:08pm - September 01, 2013 9:00pm) Medication Route Sig/Schedule Precondition/Indication Comments/Instructions Codes PERCOCET 5/325(OxyCODONE/ACETAMINOPHEN) 1 TAB TAB Total Dose: 1 TAB ORAL [place]: ONE TIME ORDER Rx Order Comments: Order placed as verified: Dose Warnings differ from us customs and border officer Label Comments: MAX REC DOSE ACETAMINOPHEN: 4000MG/24HRS MAY INCREASE FALL RISK PERCOCET 5/325 (OxyCODONE/ACETAMINOPHEN) RxNorm: [id number] PERCOCET 5/325 (OxyCODONE/ACETAMINOPHEN) RxNorm: [id number] PERCOCET 5/325 (OxyCODONE/ACETAMINOPHEN) NDC: [id number] DELTASONE(PredniSONE) 20 MG TAB Total Dose: 40 MG ORAL [place]: ONE TIME ORDER Rx Order Comments: Order placed as verified: Dose Warnings differ from us customs and border officer Label Comments: TAKE WITH FOOD OR MILK DELTASONE (PredniSONE) RxNorm: [id number] DELTASONE (PredniSONE) NDC: 67554232951 Discharge Medications Visit/Account #[id number] (September 01, 2013 6:08pm - September 01, 2013 9:00pm) Medication Route Sig/Schedule Precondition/Indication Comments/Instructions Codes PERCOCET 5-325 MG TABLET(OxyCODONE HCL/ACETAMINOPHEN) 1 EACH TABLET ORAL Q4S: EVERY 4 HOURS PERCOCET 5-325 MG TABLET (OxyCODONE HCL/ACETAMINOPHEN) RxNorm: [id number] PERCOCET 5-325 MG TABLET (OxyCODONE HCL/ACETAMINOPHEN) RxNorm: [id number] PERCOCET 5-325 MG TABLET (OxyCODONE HCL/ACETAMINOPHEN) NDC: 05194536393 Prednisone(PredniSONE) 20 MG TAB ORAL BID: TWICE A DAY Prednisone (PredniSONE) RxNorm: [id number] Prednisone (PredniSONE) NDC: 47681496145 History Of Encounters Encounters Visit/Account #[id number] (September 01, 2013 6:08pm - September 01, 2013 9:00pm) Account Status Physican Of Record Reason For Visit Visit Diagnosis Start Date/Time Stop Date/Time ER RONY LLAMAS MD CHEST PAIN Not Available September 01, 2013 6:08pm September 01, 2013 9:00pm History of Procedures Procedure List No Procedures Discharge Instructions Discharge Instructions Visit/Account #[id number] (September 01, 2013 6:08pm - September 01, 2013 9:00pm) No Discharge Instructions Reports. Social History Social History Visit/Account #[id number] (September 01, 2013 6:08pm - September 01, 2013 9:00pm) Smoking Status Heavy tobacco smoker September 01, 2013 6:11pm Immunizations Immunizations Patient Unit Number: [id number] Immunizations No Immunizations Administered
--- OUTSIDE RECORDS SUMMARY | 2018-02-04 14:48 | XMS REPORT | Continuity of Care Document ---
Author Author Mary ROMERO, CANDACE W [facility] Address [address] [place] [address] [place] [address] Phone Care Team Providers Care Online Marketing Coordinator Name Role Phone Doug Hernandez PP Unavailable Payers Payer name Insurance type Covered green party ID Authorization(s) Unknown Problems Condition Effective Dates (start - stop) Clinical Status COPD - *Chronic Lumbago - *Chronic CHRONIC PAIN NEC - *Chronic Anxiety - *Chronic GERD - *Chronic Insomnia, Other - *Chronic Abdominal pain, epigastric - *Chronic Other and unspecified hyperlipidemia - *Chronic Influenza Vaccine - Hypertension, Benign - *Chronic Backache - *Chronic Osteoarthrosis, generalized, involving unspecified site - * Chronic Right hemiplegia - *Chronic GERD - *Chronic Low back pain - *Chronic Lumbago - *Chronic Hypertension, Benign - *Chronic COPD - *Chronic Unspecified cerebrovascular disease - *Chronic CHRONIC PAIN NEC - *Chronic Cerebrovascular disease, unspecified - *Chronic [...] - *Chronic CHRONIC PAIN NEC - *Chronic Family History Family Member Diagnosis [...] Dosage Effective Dates (start - stop) Status Lyrica 50 mg capsule 1 po bid - Active sucralfate 1 gram tablet take 1 tablet (1G) by oral route 4 times every day on an empty stomach 1 hour before meals and at bedtime 1 G - Active hydromorphone ER 8 mg tablet,extended release 24 hr 1 t, po, q6hr prn - #30 last 30days - Active mirtazapine 30 mg tablet take 1 tablet (30MG) by oral route every day before bedtime 30 MG - Active trazodone 100 mg tablet 2 t, po, qhs for sleep - Active escitalopram 20 mg tablet take 1 Tablet (20MG) by oral route every day 20 MG - Active Nasal [place] (oxymetazoline) 0.05 % aerosol spray 2 spray by intranasal route 2 times every day in each nostril in the morning and evening as needed 0 - Active EYE DROPS (unknown strength) prn - Active fluticasone 50 mcg/actuation nasal spray,suspension spray 2 spray (100MCG) by intranasal route every day in each nostril as needed as needed 100 MCG Jan - Active Advair Diskus 250 mcg-50 mcg/dose powder for inhalation inhale 1 puff by inhalation route 2 times every day in the morning and evening approximately 12 hours apart 0 - Active promethazine 25 mg tablet take [...] route every day 75 MG - Active oxycodone 20 mg tablet take 1 tablet (20MG) by oral route every 4 - 6 hours 20 MG - Active Percocet 10 mg-325 mg tablet take 2 Tablet by oral route 4 times every day as needed, Rx must last 30 days 0 - Active clonazepam 0.5 mg tablet Take 1 tablet 3 times a day as needed for anxiety - Active Immunizations Vaccine Date Status Comments Flu (split) (3 yrs or older) completed Results Test Name Date and Time Measure Units Reference Range Abnormal Flag Comments Unknown Vital Signs Date / Time: Height Weight Pulse Rate Blood Pressure Temperature /14:41:00 72.25 in 129.00 lbs 100/50 mm[Hg] 96.6 F Procedures Procedure Date Unknown Encounters Encounter Location Date Patient Visit [facility] Patient Visit [facility] Patient Visit [facility] Patient Visit [facility] Patient Visit [facility] Patient Visit [facility] Patient Visit [facility] Patient Visit [facility] Patient Visit [facility] Patient Visit [facility] Patient Visit [facility] Patient Visit [facility] Patient Visit [facility] Advance Directives Directive Effective Date Unknown
--- OUTSIDE RECORDS SUMMARY | 2018-02-04 14:48 | XMS REPORT | Continuity Of Care Document ---
Author Author [facility] Organization [facility] Address [address] [place] [address] Phone Care Team Providers Care Service Promoter Salesperson Name Role Phone MODESTO ROMERO, SAMMY Unavailable ADORE ROMERO, TYLER Tenorio Unavailable YOSI ROMERO, ZENON Duran Unavailable [phone] DUDLEY ROMERO, EVARISTO Ferro AT Results Lab Results Visit/Account #[id number] (July 21, 2013 12:26am - July 25, 2013 11:00am) Test Result Date/Time G3AR 04512-5: STYPE ART July 21, 2013 7:36am ART July 21, 2013 8:53am 57484-3: PH(7.35-7.45) 7.427 July 21, 2013 7:36am 7.355 July 21, 2013 8:53am PCO2(35-45 mmHg) 37.1 mmHg July 21, 2013 7:36am 37.9 mmHg July 21, 2013 8:53am 2706-0: PO2(80-105 mmHg) 99 mmHg July 21, 2013 7:36am 414 mmHg July 21, 2013 8:53am 1959-6: HCO3(22-26 MMOL/L) 24.5 MMOL/L July 21, 2013 7:36am 21.2 MMOL/L July 21, 2013 8:53am TCO2(23-27 MMOL/L) 26 MMOL/L July 21, 2013 7:36am 22 MMOL/L July 21, 2013 8:53am SO2C(95-98 %) 98 % July 21, 2013 7:36am 100 % July 21, 2013 8:53am 1922-4: ABG BASE DEFICIT(0-30 mmol/L) 4 mmol/L July 21, 2013 8:53am 1927-3: ABG BASE EXCESS(0-30 mmol/L) 0 mmol/L July 21, 2013 7:36am FIO2(%) 30 % July 21, 2013 7:36am 100 % July 21, 2013 8:53am PEEP(CM H2O) 5 CM H2O July 21, 2013 7:36am 5 CM H2O July 21, 2013 8:53am TIDAL VOLUME(ML) 450 ML July 21, 2013 7:36am 450 ML July 21, 2013 8:53am 43314-6: COMPLETE BLOOD COUNT WITH DIFF WHITE BLOOD COUNT(4.0-11.0 10E3/UL) 8.6 10E3/UL July 21, 2013 1:43am 16.5 10E3/UL July 21, 2013 6:16am 7.7 10E3/UL July 22, 2013 4:44am RED BLOOD COUNT(4.40-5.90 10E6/UL) 4.15 10E6/UL July 21, 2013 1:43am 4.39 10E6/UL July 21, 2013 6:16am 3.93 10E6/UL July 22, 2013 4:44am HEMOGLOBIN(13.0-18.0 G/DL) 13.5 G/DL July 21, 2013 1:43am 14.3 G/DL July 21, 2013 6:16am 12.7 G/DL July 22, 2013 4:44am HEMATOCRIT(39.0-54.0 %) 39.5 % July 21, 2013 1:43am 42.2 % July 21, 2013 6:16am 38.2 % July 22, 2013 4:44am 61379-8: MEAN CORPUSCULAR VOLUME(80.0-100.0 FL) 95.2 FL July 21, 2013 1:43am 96.1 FL July 21, 2013 6:16am 97.2 FL July 22, 2013 4:44am 79071-0: MEAN CORPUSCULAR HEMOGLOBIN(27.0-34.0 PG) 32.5 PG July 21, 2013 1:43am 32.6 PG July 21, 2013 6:16am 32.3 PG July 22, 2013 4:44am MEAN CORPUSCULAR HGB CONC(33.0-37.0 G/DL) 34.2 G/DL July 21, 2013 1:43am 33.9 G/DL July 21, 2013 6:16am 33.2 G/DL July 22, 2013 4:44am RED CELL DISTRIBUTION WIDTH(11.0-15.0 %) 13.0 % July 21, 2013 1:43am 12.7 % July 21, 2013 6:16am 12.5 % July 22, 2013 4:44am 777-3: PLATELET COUNT(130-400 10E3/UL) 156 10E3/UL July 21, 2013 1:43am 176 10E3/UL July 21, 2013 6:16am 137 10E3/UL July 22, 2013 4:44am MEAN PLATELET VOLUME(7.4-11.0 FL) 9.0 FL July 21, 2013 1:43am 9.7 FL July 21, 2013 6:16am 9.6 FL July 22, 2013 4:44am 770-8: NEUTROPHILS % (AUTO)(40-70 %) 86 % July 21, 2013 1:43am 87 % July 21, 2013 6:16am 73 % July 22, 2013 4:44am LYMPHOCYTES % (AUTO)(15-45 %) 7 % July 21, 2013 1:43am 6 % July 21, 2013 6:16am 18 % July 22, 2013 4:44am 5905-5: MONOCYTES % (AUTO)(2-10 %) 6 % July 21, 2013 1:43am 6 % July 21, 2013 6:16am 8 % July 22, 2013 4:44am 713-8: EOSINOPHILS % (AUTO)(0-6 %) 0 % July 21, 2013 1:43am 0 % July 21, 2013 6:16am 1 % July 22, 2013 4:44am 706-2: BASOPHILS % (AUTO)(0-1 %) 0 % July 21, 2013 1:43am 0 % July 21, 2013 6:16am 0 % July 22, 2013 4:44am 43730-4: IMMATURE GRANS % (AUTO)(0-0 %) 0 % July 21, 2013 1:43am 0 % July 21, 2013 6:16am 0 % July 22, 2013 4:44am NUCLEATED RBCS (AUTO)(0-0 %) 0 % July 21, 2013 1:43am 0 % July 21, 2013 6:16am 0 % July 22, 2013 4:44am 751-8: NEUTROPHILS # (AUTO)(2.5-7.5 10E3/UL) 7.4 10E3/UL July 21, 2013 1:43am 14.4 10E3/UL July 21, 2013 6:16am 5.6 10E3/UL July 22, 2013 4:44am 62429-8: LYMPHOCYTES # (AUTO)(1.0-4.0 10E3/UL) 0.6 10E3/UL July 21, 2013 1:43am 0.9 10E3/UL July 21, 2013 6:16am 1.4 10E3/UL July 22, 2013 4:44am 742-7: MONOCYTES # (AUTO)(0.2-0.8 10E3/UL) 0.5 10E3/UL July 21, 2013 1:43am 1.0 10E3/UL July 21, 2013 6:16am 0.6 10E3/UL July 22, 2013 4:44am 711-2: EOSINOPHILS # (AUTO)(0.0-0.4 10E3/UL) 0.0 10E3/UL July 21, 2013 1:43am 0.0 10E3/UL July 21, 2013 6:16am 0.1 10E3/UL July 22, 2013 4:44am 704-7: BASOPHILS # (AUTO)(0.0-0.2 10E3/UL) 0.0 10E3/UL July 21, 2013 1:43am 0.1 10E3/UL July 21, 2013 6:16am 0.0 10E3/UL July 22, 2013 4:44am IMMATURE GRANS # (AUTO)(0.0-0.0 10E3/UL) 0.0 10E3/UL July 21, 2013 1:43am 0.1 10E3/UL July 21, 2013 6:16am 0.0 10E3/UL July 22, 2013 4:44am DIFF TYPE AUTOMATED July 21, 2013 1:43am AUTOMATED July 21, 2013 6:16am AUTOMATED July 22, 2013 4:44am 49825-1: PROTHROMBIN TIME WITH INR PROTHROMBIN TIME(12.1-14.0 SEC) 13.7 SEC July 21, 2013 1:50am 13.8 SEC July 21, 2013 6:40am 13.2 SEC July 22, 2013 5:02am 05554-8: INR 1.07 Result Comments: INR reference interval applies to patients on anticoagulant therapy. Suggested INR therapeutic range for oral anticoagulant therapy: (Stabilized anticoagulated patients) Routine Therapy: 2.0 to 3.0 Recurrent Myocardial Infarction: 2.5 to 3.5 Mechanical Prosthetic Valves: 2.5 to 3.5 July 21, 2013 1:50am 1.08 Result Comments: INR reference interval applies to patients on anticoagulant therapy. Suggested INR therapeutic range for oral anticoagulant therapy: (Stabilized anticoagulated patients) Routine Therapy: 2.0 to 3.0 Recurrent Myocardial Infarction: 2.5 to 3.5 Mechanical Prosthetic Valves: 2.5 to 3.5 July 21, 2013 6:40am 1.02 Result Comments: INR reference interval applies to patients on anticoagulant therapy. Suggested INR therapeutic range for oral anticoagulant therapy: (Stabilized anticoagulated patients) Routine Therapy: 2.0 to 3.0 Recurrent Myocardial Infarction: 2.5 to 3.5 Mechanical Prosthetic Valves: 2.5 to 3.5 July 22, 2013 5:02am PARTIAL THROMBOPLASTIN TIME PARTIAL THROMBOPLASTIN TIME(22.2-37.4 SEC) 27.7 SEC July 21, 2013 1:51am 36.6 SEC July 21, 2013 6:41am 22.5 SEC July 22, 2013 5:03am 28227-9: URINALYSIS WITH MICROSCOPIC 5778-6: COLOR,URINE YELLOW July 21, 2013 1:32am 23663-1: CLARITY,URINE SL CLOUDY July 21, 2013 1:32am GLUCOSE, URINE(NEGATIVE MG/DL) NEGATIVE MG/DL July 21, 2013 1:32am URINE BILIRUBIN(NEGATIVE) NEGATIVE July 21, 2013 1:32am 90278-7: KETONES,URINE(NEGATIVE MG/DL) NEGATIVE MG/DL July 21, 2013 1:32am 2965-2: URINE SPECIFIC GRAVITY(1.001-1.035) Greater than or equal to 1.030 July 21, 2013 1:32am 97139-8: URINE BLOOD(NEGATIVE) LARGE July 21, 2013 1:32am 2756-5: URINE PH(5.0-9.0) 5.5 July 21, 2013 1:32am URINE PROTEIN(Less than 20 MG/DL) NEGATIVE MG/DL July 21, 2013 1:32am URINE UROBILINOGEN(0.2-1.0 MG/DL) 0.2 MG/DL July 21, 2013 1:32am URINE NITRITE(NEGATIVE) NEGATIVE July 21, 2013 1:32am 5799-2: LEUKOCYTE ESTERASE ,URINE(NEGATIVE) NEGATIVE July 21, 2013 1:32am URINE MICROSCOPIC REQUIRED YES July 21, 2013 1:32am URINE WBCS(/HPF) 0-3 /HPF July 21, 2013 1:43am 43318-3: URINE RBCS(/HPF) 13-20 /HPF July 21, 2013 1:43am 05283-4: URINE EPITHELIAL CELLS(/HPF) 4-7 /HPF July 21, 2013 1:43am BACTERIA,URINE(/HPF) TRACE /HPF July 21, 2013 1:43am URINE CRYSTALS(/HPF) NONE SEEN /HPF July 21, 2013 1:33am URINE CASTS(/LPF) NONE SEEN /LPF July 21, 2013 1:33am URINE COMMENTS TRACE MUCOUS July 21, 2013 1:44am 69565-5: COMPLETE METABOLIC PROFILE 21743-0: GLUCOSE(70-110 MG/DL) 114 MG/DL July 21, 2013 1:57am 106 MG/DL July 21, 2013 6:35am 93 MG/DL July 22, 2013 5:04am BLOOD UREA NITROGEN(6-20 MG/DL) 12 MG/DL July 21, 2013 1:57am 12 MG/DL July 21, 2013 6:35am 11 MG/DL July 22, 2013 5:04am 94564-2: CREATININE(0.50-1.20 MG/DL) 0.53 MG/DL July 21, 2013 1:57am 0.61 MG/DL July 21, 2013 6:35am 0.57 MG/DL July 22, 2013 5:04am 86624-3: EST GLOMERULAR FILTRATION RATE(Greater than or equal to 60) Greater than or equal to 60 Result Comments: If the patient is of -Filipino descent/extraction multiply the eGFR value by 1.212 to obtain the actual eGFR. >=60 mg/dL Normal 30-59 mg/dL Moderate Kidney Disease 15-29 mg/dL Severe Kidney Disease <15 mg/dL Kidney Failure July 21, 2013 1:57am Greater than or equal to 60 Result Comments: If the patient is of -Filipino descent/extraction multiply the eGFR value by 1.212 to obtain the actual eGFR. >=60 mg/dL Normal 30-59 mg/dL Moderate Kidney Disease 15-29 mg/dL Severe Kidney Disease <15 mg/dL Kidney Failure July 21, 2013 6:35am Greater than or equal to 60 Result Comments: If the patient is of -Filipino descent/extraction multiply the eGFR value by 1.212 to obtain the actual eGFR. >=60 mg/dL Normal 30-59 mg/dL Moderate Kidney Disease 15-29 mg/dL Severe Kidney Disease <15 mg/dL Kidney Failure July 22, 2013 5:04am BUN CREATININE RATIO(10.0-20.0 RATIO) 23.0 RATIO July 21, 2013 1:57am 20.0 RATIO July 21, 2013 6:35am 19.0 RATIO July 22, 2013 5:04am 31783-6: SODIUM(135-145 MMOL/L) 140 MMOL/L July 21, 2013 1:57am 143 MMOL/L July 21, 2013 6:35am 144 MMOL/L July 22, 2013 5:04am 89309-2: POTASSIUM(3.6-5.0 MMOL/L) 3.5 MMOL/L July 21, 2013 1:57am 3.9 MMOL/L July 21, 2013 6:35am 3.7 MMOL/L July 22, 2013 5:04am 12138-3: CHLORIDE(101-111 MMOL/L) 111 MMOL/L July 21, 2013 1:57am 110 MMOL/L July 21, 2013 6:35am 114 MMOL/L July 22, 2013 5:04am 8-9: CO2(21-31 MMOL/L) 22.0 MMOL/L July 21, 2013 1:57am 26.0 MMOL/L July 21, 2013 6:35am 26.0 MMOL/L July 22, 2013 5:04am 33991-7: ANION GAP(8-18) 11 July 21, 2013 1:57am 11 July 21, 2013 6:35am 8 July 22, 2013 5:04am OSMO CALCULATED(270.0-290.0) 280.0 July 21, 2013 1:57am 285.2 July 21, 2013 6:35am 285.9 July 22, 2013 5:04am CALCIUM(8.5-10.5 MG/DL) 8.2 MG/DL July 21, 2013 1:57am 8.9 MG/DL July 21, 2013 6:35am 8.8 MG/DL July 22, 2013 5:04am 24748-9: BILIRUBIN,TOTAL(0.1-1.2 MG/DL) 1.2 MG/DL July 21, 2013 1:57am 1.0 MG/DL July 21, 2013 6:35am 1.1 MG/DL July 22, 2013 5:04am ALKALINE PHOSPHATASE(42-121 U/L) 70 U/L July 21, 2013 1:57am 65 U/L July 21, 2013 6:35am 69 U/L July 22, 2013 5:04am ASPARTATE AMINO TRANSFERASE(10-42 U/L) 17 U/L July 21, 2013 1:57am 24 U/L July 21, 2013 6:35am 19 U/L July 22, 2013 5:04am ALANINE AMINOTRANSFERASE(10-60 U/L) 18 U/L July 21, 2013 1:57am 19 U/L July 21, 2013 6:35am 18 U/L July 22, 2013 5:04am 26664-9: TOTAL PROTEIN(6.4-8.2 G/DL) 6.1 G/DL July 21, 2013 1:57am 6.7 G/DL July 21, 2013 6:35am 5.7 G/DL July 22, 2013 5:04am ALBUMIN(3.5-5.5 G/DL) 3.4 G/DL July 21, 2013 1:57am 3.8 G/DL July 21, 2013 6:35am 3.2 G/DL July 22, 2013 5:04am 2336-6: GLOBULIN(2.4-3.6) 2.7 July 21, 2013 1:57am 2.9 July 21, 2013 6:35am 2.5 July 22, 2013 5:04am 1759-0: ALBUMIN/GLOBULIN RATIO(0.9-1.8 RATIO) 1.3 RATIO July 21, 2013 1:57am 1.3 RATIO July 21, 2013 6:35am 1.3 RATIO July 22, 2013 5:04am 81737-3: MAGNESIUM 66993-1: MAGNESIUM(1.8-2.5 MG/DL) 2.0 MG/DL July 21, 2013 6:35am 1.9 MG/DL July 22, 2013 5:04am 51270-8: PHOSPHORUS 64568-7: PHOSPHORUS(2.5-4.6 MG/DL) 4.6 MG/DL July 21, 2013 6:35am 3.0 MG/DL July 22, 2013 5:04am ACETAMINOPHEN ACETAMINOPHEN(10-30 UG/ML) Less than 10.0 UG/ML July 21, 2013 2:00am SALICYLATE SALICYLATE(4-29 MG/DL) Less than 4 MG/DL July 21, 2013 2:00am 71068-8: ALCOHOL 26703-9: ALCOHOL(0.0-5.0 MG/DL) 28.0 MG/DL July 21, 2013 1:57am DRUGS OF ABUSE, URINE 32109-5: OPIATE SCREEN,URINE(NEGATIVE) NEGATIVE July 21, 2013 1:44am 44680-9: BARBITURATES SCREEN, URINE(NEGATIVE) NEGATIVE July 21, 2013 1:44am 52403-1: AMPHETAMINE SCREEN,URINE(NEGATIVE) NEGATIVE July 21, 2013 1:44am BENZODIAZEPINES SCREEN,URINE(NEGATIVE) PRESUMPTIVE POSITIVE July 21, 2013 1:44am 91026-5: COCAINE SCREEN, URINE(NEGATIVE) NEGATIVE July 21, 2013 1:44am CANNABINOID SCREEN,URINE(NEGATIVE) NEGATIVE July 21, 2013 1:44am Microbiology Results Visit/Account #[id number] (July 21, 2013 12:26am - July 25, 2013 11:00am) Procedure Result 36254-3: MRSA SCREEN FOR INFEC CONTROL 14538-4: MRSA SCREEN FOR INFEC CONTROL Result Instance On July 22, 2013 10:36am Source: NARE Organism: [id number] (SNOMED_CT) MRSA ISOLATED BLOOD CULTURE BLOOD CULTURE Result Instance On July 26, 2013 2:00am Source: BLOOD Special Result Comments: No growth Result Instance On July 26, 2013 2:00am Source: BLOOD Special Result Comments: No growth Allergies and Adverse Reactions Allergies and Adverse Reactions Patient Unit Number: [id number] Agent Type Reaction Severity Status Date ANTI [...] Unknown Date Problem List Problem List Visit/Account #[id number] (July 21, 2013 12:26am - July 25, 2013 11:00am) Acute Problems: Code/Condition Comments Documented Start Date Documented Resolved Date Code (s) Respiratory failure July 21, 2013 ICD10: J96.90 Respiratory failure ICD9: 518.81 Respiratory failure SNOMED: 312014290 Respiratory failure Alcohol intoxication July 21, 2013 ICD10: F10.129 Alcoholic intoxication ICD9: 305.00 Alcoholic intoxication SNOMED: 25426517 Alcoholic intoxication Unresponsiveness ICD10: R40.4 Unresponsiveness ICD9: 780.09 Unresponsiveness SNOMED: 393649953 Unresponsiveness Suicidal behavior ICD10: F48.9 Suicidal behavior ICD9: 300.9 Suicidal behavior SNOMED: 52801714 Suicidal behavior Acute respiratory failure ICD10: J96.00 Acute respiratory failure ICD9: 518.81 Acute respiratory failure SNOMED: 32790675 Acute respiratory failure Overdose ICD10: T50.901A Drug overdose ICD9: 977.9 Drug overdose SNOMED: 84207133 Drug overdose CAD (coronary artery disease) ICD10: I25.10 Atherosclerosis of coronary artery ICD9: 414.00 Atherosclerosis of coronary artery SNOMED: 520767681 Atherosclerosis of coronary artery COPD (chronic obstructive pulmonary disease) ICD10: J44.9 Chronic obstructive pulmonary disease ICD9: 496 Chronic obstructive pulmonary disease SNOMED: 62337487 Chronic obstructive pulmonary disease Depression ICD10: F32.9 Depression ICD9: 311 Depression SNOMED: 19429296 Depression Plan of Care Plan Of Care Visit/Account #[id number] (July 21, 2013 12:26am - July 25, 2013 11:00am) Instructions/Comments: DI for Suicidal Ideation-Adult Nicotine Oral Inhalation Vital Signs Vital Signs Visit/Account #[id number] (July 21, 2013 12:26am - July 25, 2013 11:00am) Label First Result Last Result 2710-2: O2% 100 % July 21, 2013 12:46am 96 % July 25, 2013 10:31am 8310-5: Celsius Body Temperature 35.95258 Nataly July 23, 2013 5:01pm 35.69928 Nataly July 25, 2013 10:31am 8310-5: Fahrenheit Body Temperature 98.0 [degF] July 21, 2013 4:15am 96.6 [degF] July 25, 2013 10:31am 8480-09/8461-4: Systolic/Diastolic Blood Pressure 134/96 mm[Hg] July 21, 2013 12:46am 136/82 mm[Hg] July 25, 2013 10:31am 8867-4: Heart Rate 104 /min July 21, 2013 12:46am 91 /min July 25, 2013 10:31am 9279-1: Respiratory Rate 28 /min July 21, 2013 12:46am 18 /min July 25, 2013 10:31am Functional Status Functional Status Visit/Account #[id number] (July 21, 2013 12:26am - July 25, 2013 11:00am) Intervention: Physical Therapy Activity Record: PT documented on July 23, 2013 9:50am Activity Activity Ability Needs Assistance 2 Person Assist Intervention: Physical Therapy Activity Record: PT documented on July 24, 2013 11:09am Activity Activity Ability Needs Assistance Mobility Ambulation Ability Min Assist Roller Walker 1 Person Gait Belt Transfers Supine to Sit SBA Sit to Stand CGA Medications Home Medications Visit/Account #[id number] (July 21, 2013 12:26am - July 25, 2013 11:00am) Medication Route Sig/Schedule Precondition/Indication Comments/Instructions Codes CARAFATE(SUCRALFATE) 1 GM TAB ORAL 4XD: 4 TIMES DAILY CARAFATE (SUCRALFATE) RxNorm: F915940 CARAFATE (SUCRALFATE) NDC: 46291448475 Klonopin(ClonAZEPAM) 0.5 MG TAB ORAL HS: AT BEDTIME Klonopin (ClonAZEPAM) RxNorm: O173564 Klonopin (ClonAZEPAM) NDC: 05277711707 Pepcid(FAMOTIDINE) 40 MG TAB ORAL BID: TWICE A DAY Pepcid (FAMOTIDINE) RxNorm: T199454 Pepcid (FAMOTIDINE) NDC: 30340685297 DOCUSATE SODIUM(DOCUSATE SODIUM) 100 MG TABLET ORAL DAILY: DAILY DOCUSATE SODIUM (DOCUSATE SODIUM) RxNorm: S9651862 DOCUSATE SODIUM (DOCUSATE SODIUM) NDC: 27338228056 Flonase(FLUTICASONE PROPIONATE) 16 GM NASAL SPRAY IN NASAL DAILY: DAILY Flonase (FLUTICASONE PROPIONATE) RxNorm: B665711 Flonase (FLUTICASONE PROPIONATE) RxNorm: H002799 Flonase (FLUTICASONE PROPIONATE) NDC: 76428660295 Plavix(CLOPIDOGREL BISULFATE) 75 MG TAB ORAL DAILY: DAILY Plavix (CLOPIDOGREL BISULFATE) RxNorm: H401597 Plavix (CLOPIDOGREL BISULFATE) RxNorm: Q274213 Plavix (CLOPIDOGREL BISULFATE) NDC: 62323698433 Trazodone Hcl(TraZODone HCL) 100 MG TABLET ORAL HS: AT BEDTIME Trazodone Hcl (TraZODone HCL) RxNorm: N094116 Trazodone Hcl (TraZODone HCL) NDC: 26193438713 TYLENOL(ACETAMINOPHEN) 500 MG TAB ORAL PRN: NEEDED Rx Instructions: 500 - 1000 MG TYLENOL (ACETAMINOPHEN) RxNorm: W148301 TYLENOL (ACETAMINOPHEN) RxNorm: I191885 TYLENOL (ACETAMINOPHEN) NDC: 56287274282 PERCOCET 5-325 MG TABLET(OxyCODONE/ACETAMINOPHEN) 1 TAB TAB ORAL Q6S: EVERY 6 HOURS PERCOCET 5-325 MG TABLET (OxyCODONE/ACETAMINOPHEN) RxNorm: O7920924 PERCOCET 5-325 MG TABLET (OxyCODONE/ACETAMINOPHEN) RxNorm: K7935903 PERCOCET 5-325 MG TABLET (OxyCODONE/ACETAMINOPHEN) NDC: 50009239232 Diovan(VALSARTAN) 320 MG TAB ORAL DAILY: DAILY Diovan (VALSARTAN) RxNorm: L930367 Diovan (VALSARTAN) RxNorm: V298525 Diovan (VALSARTAN) NDC: 43208023366 REMERON(MIRTAZAPINE) 15 MG TAB ORAL HS: AT BEDTIME REMERON (MIRTAZAPINE) RxNorm: D035259 REMERON (MIRTAZAPINE) RxNorm: U203548 REMERON (MIRTAZAPINE) NDC: 53303487591 Omeprazole(OMEPRAZOLE) 20 MG CAP ORAL 30ACB: 30 MIN BEFORE BKFST Omeprazole (OMEPRAZOLE) RxNorm: U717663 Omeprazole (OMEPRAZOLE) NDC: 46167356867 ESCITALOPRAM OXALATE(ESCITALOPRAM OXALATE) 20 MG TABLET ORAL DAILY: DAILY ESCITALOPRAM OXALATE (ESCITALOPRAM OXALATE) RxNorm: Z034207 ESCITALOPRAM OXALATE (ESCITALOPRAM OXALATE) NDC: 04661553230 Advanced Eye Relief Eye Drops(GLYCERIN/PROPYLENE GLYCOL) 15 ML DROPS OPHTHALMIC PRN: NEEDED Advanced Eye Relief Eye Drops (GLYCERIN/PROPYLENE GLYCOL) RxNorm: R012291 Advanced Eye Relief Eye Drops (GLYCERIN/PROPYLENE GLYCOL) NDC: 84862237133 OXYMETAZOLINE HCL(OXYMETAZOLINE HCL) 15 ML SPRAY NASAL PRN: NEEDED OXYMETAZOLINE HCL (OXYMETAZOLINE HCL) RxNorm: M7467370 OXYMETAZOLINE HCL (OXYMETAZOLINE HCL) NDC: 55061926392 CLEAR EYES REDNESS RELIEF DROP(NAPHAZOLINE HCL/GLYCERIN) 30 ML DROPS OPHTHALMIC PRN: NEEDED CLEAR EYES REDNESS RELIEF DROP (NAPHAZOLINE HCL/GLYCERIN) RxNorm: D3189476 CLEAR EYES REDNESS RELIEF DROP (NAPHAZOLINE HCL/GLYCERIN) NDC: 77222874035 NICOTROL INHALER(NICOTINE) 10 MG/CART INHALER INHALED PRN: NEEDED NICOTROL INHALER (NICOTINE) RxNorm: U5764393 NICOTROL INHALER (NICOTINE) RxNorm: A306859 NICOTROL INHALER (NICOTINE) NDC: 73533042143 Inpatient/Ordered Medications Visit/Account #[id number] (July 21, 2013 12:26am - July 25, 2013 11:00am) Medication Route Sig/Schedule Precondition/Indication Comments/Instructions Codes IV Medication Carriers: DIPRIVAN INJ(PROPOFOL) 1000 MG/100 ML INJECTION Total Dose: 100 ML INTRAVEN .Q0M (Rate: 0 MLS/HR Duration: 0 SEC) PRN Reason: PRN Reason: SEDATION Rx Order Comments: Order filed UNV: Dose Warnings differ from service order clerk Label Comments: *Propofol Protocol* Start at 5 mcg/kg/min unless receiving concurrent narcotic drip and/or sedatives then start at 2.5 mcg/kg/min. Titrate dose 5-10 mcg/kg/min every 5-10 minutes to reach desired level of sedation. use within 6 hours of opening container (this med restricted to the Critical Care Unit) Carriers: DIPRIVAN INJ (PROPOFOL) RxNorm: D480895 DIPRIVAN INJ (PROPOFOL) RxNorm: U637039 DIPRIVAN INJ (PROPOFOL) NDC: 60991949288 IV Medication Additives: VERSED INJ(MIDAZOLAM HCL) 50 MG/10 ML INJECTION Total Dose: 50 MG Carriers: SODIUM CHLORIDE 100 ML INJECTION Total Dose: 90 ML INTRAVEN .Q0M (Rate: 0 MLS/HR Duration: 0 SEC) PRN Reason: PRN Reason: CONTINUOUS IV Rx Order Comments: Order filed UNV: Dose Warnings differ from service order clerk Label Comments: *Midazoloam Protocol* [CONC: 0.5 MG/ML] Load with 0.01 - 0.05 mg/kg over several minutes. Repeat in 10-15 minute intervals until adequate sedation is achieved. Then infuse 0.02 - 0.1 mg/kg/hr as maintenance. Additives: VERSED INJ (MIDAZOLAM HCL) RxNorm: G627678 VERSED INJ (MIDAZOLAM HCL) NDC: 52869602411 Carriers: (SODIUM CHLORIDE) RxNorm: C760742 (SODIUM CHLORIDE) NDC: 50168522585 PROTONIX INJ(PANTOPRAZOLE) 40 MG INJECTION Total Dose: 40 MG INTRAVEN 60ACB: 60 MIN BEFORE BKFST Label Comments: Dilute with 10 mL of NS and push over 2 minutes PROTONIX INJ (PANTOPRAZOLE) RxNorm: D556297 PROTONIX INJ (PANTOPRAZOLE) RxNorm: F506573 PROTONIX INJ (PANTOPRAZOLE) NDC: 56795891544 IV Medication Additives: M.V.I. -12(MULTIVITAMINS) 10 ML INJECTION Total Dose: 10 ML VITAMIN B1 INJ(THIAMINE HCL) 100 MG/ML INJECTION Total Dose: 100 MG FOLIC ACID 5 MG/ML INJECTION Total Dose: 1 MG Carriers: NORMAL SALINE(SODIUM CHLORIDE) 1000 ML INJECTION Total Dose: 1000 ML INTRAVEN .[id number] (Rate: 70 MLS/HR Duration: 14 HR 27 MIN) Rx Order Comments: Order filed UNV: Dose Warnings differ from service order clerk Additives: M.V.I. -12 (MULTIVITAMINS) NDC: 26815411886 VITAMIN B1 INJ (THIAMINE HCL) RxNorm: Q736643 VITAMIN B1 INJ (THIAMINE HCL) NDC: 11317921135 (FOLIC ACID) RxNorm: K702369 (FOLIC ACID) NDC: 23004458257 Carriers: NORMAL SALINE (SODIUM CHLORIDE) RxNorm: [id number] NORMAL SALINE (SODIUM CHLORIDE) NDC: [id number] LOVENOX(ENOXAPARIN) 40 MG/0.4 ML INJECTION Total Dose: 40 MG SUBCUTANEOUSLY DAILY@07 Label Comments: INJECT SC INTO ABDOMINAL WALL ONLY. LOVENOX (ENOXAPARIN) RxNorm: [id number] LOVENOX (ENOXAPARIN) RxNorm: A100033 LOVENOX (ENOXAPARIN) NDC: [id number] IV Medication Carriers: DIPRIVAN INJ(PROPOFOL) 1000 MG/100 ML INJECTION Total Dose: 100 ML INTRAVEN .Q0M (Rate: 0 MLS/HR Duration: 0 SEC) PRN Reason: PRN Reason: SEDATION Label Comments: *Propofol Protocol* Start at 5 mcg/kg/min unless receiving concurrent narcotic drip and/or sedatives then start at 2.5 mcg/kg/min. Titrate dose 5-10 mcg/kg/min every 5-10 minutes to reach desired level of sedation. use within 6 hours of opening container (this med restricted to the Critical Care Unit) Carriers: DIPRIVAN INJ (PROPOFOL) RxNorm: [id number] DIPRIVAN INJ (PROPOFOL) RxNorm: [id number] DIPRIVAN INJ (PROPOFOL) NDC: [id number] CHLORHEXIDINE ACETATE 15 ML SOLUTION Total Dose: 15 ML MUCOUS MEM Q6S: EVERY 6 HOURS Label Comments: PRIOR TO USE MIX WITH ONE PACKAGE OF [employer] ORAL MOISTURIZER. FINAL CONC 2% CHLORHEXIDINE EXPIRES IN 24 HOURS AFTER MIXING @ Special Dose Instructions: FOR ORAL CARE OF MECHANICALLY VENTILATED PATIENTS* IV Medication Carriers: SODIUM CHLOIRDE 0.9%- POTASSIUM CHLOR 20 MEQ(KCL/SODIUM CHLORIDE) 20 MEQ/1000 ML INJECTION Total Dose: 1000 ML INTRAVEN .Q10H (Rate: 100 MLS/HR Duration: 10 HR) Label Comments: Expires 24 HRS after package opened. Carriers: SODIUM CHLOIRDE 0.9%- POTASSIUM CHLOR 20 MEQ (KCL/SODIUM CHLORIDE) RxNorm: [id number] SODIUM CHLOIRDE 0.9%- POTASSIUM CHLOR 20 MEQ (KCL/SODIUM CHLORIDE) NDC: [id number] IV Medication Additives: ATIVAN INJ(LORazepam) 20 MG/10 ML INJECTION Total Dose: 20 MG Carriers: SODIUM CHLORIDE 100 ML INJECTION Total Dose: 90 ML INTRAVEN .Q0M (Rate: 0 MLS/HR Duration: 0 SEC) PRN Reason: PRN Is Schedule, No PRN Reason Listed Label Comments: LORAZEPAM CONC: 0.2 MG/ML DO NOT REFRIGERATE EXP: IN 12 HRS @____ SEND A IN-LINE FILTER MAY INCREASE FALL RISK Additives: ATIVAN INJ (LORazepam) RxNorm: [id number] ATIVAN INJ (LORazepam) NDC: [id number] Carriers: (SODIUM CHLORIDE) RxNorm: [id number] (SODIUM CHLORIDE) NDC: [id number] ATIVAN INJ(LORazepam) 2 MG/ML INJECTION Total Dose: 0 ML INTRAVEN Q4H PRN Reason: PRN Reason: ANXIETY/AGITATION Label Comments: *DILUTE WITH EQUAL VOLUME OF NORMAL SALINE PRIOR TO IV ADMINISTRATION MAY INCREASE FALL RISK Special Dose Instructions: 1-2mg IV Q4 hours prn agitation ATIVAN INJ (LORazepam) RxNorm: [id number] ATIVAN INJ (LORazepam) RxNorm: L611824 ATIVAN INJ (LORazepam) NDC: [id number] HALDOL INJ(HALOPERIDOL LACTATE) 5 MG/ML INJECTION Total Dose: 2 ML INTRAVEN Q4H PRN Reason: agitation Label Comments: MAY INCREASE FALL RISK HALDOL INJ (HALOPERIDOL LACTATE) RxNorm: [id number] HALDOL INJ (HALOPERIDOL LACTATE) NDC: [id number] HALDOL INJ(HALOPERIDOL LACTATE) 5 MG/ML INJECTION Total Dose: 5 MG INTRAVEN Q2H PRN Reason: agitation Label Comments: MAY INCREASE FALL RISK HALDOL INJ (HALOPERIDOL LACTATE) RxNorm: U917071 HALDOL INJ (HALOPERIDOL LACTATE) NDC: [id number] ATIVAN INJ(LORazepam) 2 MG/ML INJECTION Total Dose: 4 ML INTRAVEN Q1H PRN Reason: anxiety or agitation Rx Order Comments: Order filed UNV: Allergies/Duplicates/Interactions differ from service order clerk Order filed UNV: Dose Warnings differ from service order clerk Label Comments: *DILUTE WITH EQUAL VOLUME OF NORMAL SALINE PRIOR TO IV ADMINISTRATION MAY INCREASE FALL RISK ATIVAN INJ (LORazepam) RxNorm: I187503 ATIVAN INJ (LORazepam) RxNorm: C399639 ATIVAN INJ (LORazepam) NDC: [id number] SUBOXONE 8 MG-2 MG SL(BUPRENORPHINE HCL/NALOXONE HCL) 1 TAB TAB Total Dose: 1 TAB SUBLINGUAL BID: TWICE A DAY Label Comments: PLACE UNDER TONGUE. DO NOT SWALLOW. DO NOT ADMINISTER ANY NARCOTICS WHILE TAKING THIS MEDICATION SUBOXONE 8 MG-2 MG SL (BUPRENORPHINE HCL/NALOXONE HCL) RxNorm: V043863 SUBOXONE 8 MG-2 MG SL (BUPRENORPHINE HCL/NALOXONE HCL) NDC: [id number] LEXAPRO(ESCITALOPRAM OXALATE) 20 MG TAB Total Dose: 20 MG ORAL DAILY: DAILY Label Comments: MAY INCREASE FALL RISK LEXAPRO (ESCITALOPRAM OXALATE) RxNorm: J311779 LEXAPRO (ESCITALOPRAM OXALATE) RxNorm: I819185 LEXAPRO (ESCITALOPRAM OXALATE) NDC: 58928514459 PROTONIX(PANTOPRAZOLE SOD) 40 MG TAB Total Dose: 40 MG ORAL 60ACB: 60 MIN BEFORE BKFST PROTONIX (PANTOPRAZOLE SOD) RxNorm: U225613 PROTONIX (PANTOPRAZOLE SOD) RxNorm: Q545571 PROTONIX (PANTOPRAZOLE SOD) NDC: 07735799973 ULTRAM(TraMADol HCL) 50 MG TAB Total Dose: 50 MG ORAL Q4H PRN Reason: PRN Reason: MODERATE PAIN Label Comments: MAY INCREASE FALL RISK ULTRAM (TraMADol HCL) RxNorm: I834574 ULTRAM (TraMADol HCL) NDC: 37595420931 DIOVAN(VALSARTAN) 160 MG TAB Total Dose: 160 MG ORAL BID: TWICE A DAY DIOVAN (VALSARTAN) RxNorm: R674844 DIOVAN (VALSARTAN) RxNorm: Y036501 DIOVAN (VALSARTAN) NDC: 24200546922 PLAVIX(CLOPIDOGREL BISULFATE) 75 MG TAB Total Dose: 75 MG ORAL DAILY: DAILY PLAVIX (CLOPIDOGREL BISULFATE) RxNorm: N465173 PLAVIX (CLOPIDOGREL BISULFATE) RxNorm: P469610 PLAVIX (CLOPIDOGREL BISULFATE) NDC: 63531054904 ULTRAM(TraMADol HCL) 50 MG TAB Total Dose: 50 MG ORAL Q4H PRN Reason: PRN Reason: MODERATE PAIN Label Comments: MAY INCREASE FALL RISK ULTRAM (TraMADol HCL) RxNorm: U198745 ULTRAM (TraMADol HCL) NDC: 35876741465 AFRIN 0.05% NASPR(OXYMETAZOLINE HCL) 30 ML SOLUTION Total Dose: 0 ML IN NASAL BID: TWICE A DAY PRN Reason: stuffiness Special Dose Instructions: 1 SPRAY EACH NOSTRIL AFRIN 0.05% NASPR (OXYMETAZOLINE HCL) RxNorm: C4335562 AFRIN 0.05% NASPR (OXYMETAZOLINE HCL) NDC: 41700384177 SUBOXONE 8 MG-2 MG SL(BUPRENORPHINE HCL/NALOXONE HCL) 1 TAB TAB Total Dose: 1 TAB SUBLINGUAL BID: TWICE A DAY Label Comments: PLACE UNDER TONGUE. DO NOT SWALLOW. DO NOT ADMINISTER ANY NARCOTICS WHILE TAKING THIS MEDICATION SUBOXONE 8 MG-2 MG SL (BUPRENORPHINE HCL/NALOXONE HCL) RxNorm: L046931 SUBOXONE 8 MG-2 MG SL (BUPRENORPHINE HCL/NALOXONE HCL) NDC: 17959248799 PLAVIX(CLOPIDOGREL BISULFATE) 75 MG TAB Total Dose: 75 MG ORAL DAILY: DAILY PLAVIX (CLOPIDOGREL BISULFATE) RxNorm: J972239 PLAVIX (CLOPIDOGREL BISULFATE) RxNorm: G349338 PLAVIX (CLOPIDOGREL BISULFATE) NDC: 68147655697 LEXAPRO(ESCITALOPRAM OXALATE) 20 MG TAB Total Dose: 20 MG ORAL DAILY: DAILY Label Comments: MAY INCREASE FALL RISK LEXAPRO (ESCITALOPRAM OXALATE) RxNorm: Z575988 LEXAPRO (ESCITALOPRAM OXALATE) RxNorm: S009991 LEXAPRO (ESCITALOPRAM OXALATE) NDC: 63795285945 PROTONIX(PANTOPRAZOLE SOD) 40 MG TAB Total Dose: 40 MG ORAL 60ACB: 60 MIN BEFORE BKFST PROTONIX (PANTOPRAZOLE SOD) RxNorm: H824686 PROTONIX (PANTOPRAZOLE SOD) RxNorm: K529173 PROTONIX (PANTOPRAZOLE SOD) NDC: 44403562096 DIOVAN(VALSARTAN) 160 MG TAB Total Dose: 160 MG ORAL BID: TWICE A DAY DIOVAN (VALSARTAN) RxNorm: E668923 DIOVAN (VALSARTAN) RxNorm: C018398 DIOVAN (VALSARTAN) NDC: 40492988257 TYLENOL(ACETAMINOPHEN) 325 MG TAB Total Dose: 650 MG ORAL Q6H PRN Reason: PRN Reason: MILD PAIN Label Comments: Do not exceed 4000 mg of total acetaminophen per 24 hours TYLENOL (ACETAMINOPHEN) RxNorm: M731390 TYLENOL (ACETAMINOPHEN) NDC: 16361949938 SAPHRIS (GA)(ASENAPINE) 5 MG TAB Total Dose: 5 MG SUBLINGUAL BID: TWICE A DAY PRN Reason: PRN Reason: AGITATION Label Comments: DO NOT CRUSH, CHEW OR SWALLOW. AVOID EATING OR DRINKING FOR 10 MINUTES AFTER ADMINISTRATION. SAPHRIS (GA) (ASENAPINE) RxNorm: N485362 SAPHRIS (GA) (ASENAPINE) RxNorm: Z466055 SAPHRIS (GA) (ASENAPINE) NDC: 47759953961 NICOTROL INHALER(NICOTINE) 1 UNIT/10 MG INHALER Total Dose: 1 UNIT INHALED PRN: NEEDED PRN Reason: urge to smoke Label Comments: SEND 1 MOUTH PIECE PLUS 30 CARTRIDGES PLUS PATIENT INSTRUCTIONS. (EACH 10 MG CARTRIDGE DELIVERS 4 MG NICOTINE) NICOTROL INHALER (NICOTINE) RxNorm: E2582568 NICOTROL INHALER (NICOTINE) RxNorm: Z971633 NICOTROL INHALER (NICOTINE) NDC: 55417692195 ATIVAN INJ(LORazepam) 2 MG/ML INJECTION Total Dose: 4 ML INTRAVEN Q2H PRN Reason: PRN Reason: ANXIETY/AGITATION Rx Order Comments: Order filed UNV: Dose Warnings differ from service order clerk Label Comments: *DILUTE WITH EQUAL VOLUME OF NORMAL SALINE PRIOR TO IV ADMINISTRATION MAY INCREASE FALL RISK ATIVAN INJ (LORazepam) RxNorm: X696597 ATIVAN INJ (LORazepam) RxNorm: Z552257 ATIVAN INJ (LORazepam) NDC: 57385251350 Discharge Medications Visit/Account #[id number] (July 21, 2013 12:26am - July 25, 2013 11:00am) Medication Route Sig/Schedule Precondition/Indication Comments/Instructions Codes CARAFATE(SUCRALFATE) 1 GM TAB ORAL 4XD: 4 TIMES DAILY CARAFATE (SUCRALFATE) RxNorm: O515338 CARAFATE (SUCRALFATE) NDC: 98913103551 VENTOLIN HFA(ALBUTEROL SULF) 18 GM PUFF INHALATION Q4: EVERY 4 HOURS VENTOLIN HFA (ALBUTEROL SULF) RxNorm: B1960468 VENTOLIN HFA (ALBUTEROL SULF) NDC: 69309761009 Pepcid(FAMOTIDINE) 40 MG TAB ORAL BID: TWICE A DAY Pepcid (FAMOTIDINE) RxNorm: T119527 Pepcid (FAMOTIDINE) NDC: 30320873294 DOCUSATE SODIUM(DOCUSATE SODIUM) 100 MG TABLET ORAL DAILY: DAILY DOCUSATE SODIUM (DOCUSATE SODIUM) RxNorm: K4038292 DOCUSATE SODIUM (DOCUSATE SODIUM) NDC: 52874284793 Flonase(FLUTICASONE PROPIONATE) 16 GM NASAL SPRAY IN NASAL DAILY: DAILY Flonase (FLUTICASONE PROPIONATE) RxNorm: B502461 Flonase (FLUTICASONE PROPIONATE) RxNorm: O919709 Flonase (FLUTICASONE PROPIONATE) NDC: 94385267348 Plavix(CLOPIDOGREL BISULFATE) 75 MG TAB ORAL DAILY: DAILY Plavix (CLOPIDOGREL BISULFATE) RxNorm: D458564 Plavix (CLOPIDOGREL BISULFATE) RxNorm: B012389 Plavix (CLOPIDOGREL BISULFATE) NDC: 98112670345 TYLENOL(ACETAMINOPHEN) 500 MG TAB ORAL PRN: NEEDED Rx Instructions: 500 - 1000 MG TYLENOL (ACETAMINOPHEN) RxNorm: Z793285 TYLENOL (ACETAMINOPHEN) RxNorm: R185787 TYLENOL (ACETAMINOPHEN) NDC: 43828584459 Diovan(VALSARTAN) 320 MG TAB ORAL DAILY: DAILY Diovan (VALSARTAN) RxNorm: B618808 Diovan (VALSARTAN) RxNorm: O801987 Diovan (VALSARTAN) NDC: 05294175643 Omeprazole(OMEPRAZOLE) 20 MG CAP ORAL 30ACB: 30 MIN BEFORE BKFST Omeprazole (OMEPRAZOLE) RxNorm: P537431 Omeprazole (OMEPRAZOLE) NDC: 89302306310 ESCITALOPRAM OXALATE(ESCITALOPRAM OXALATE) 20 MG TABLET ORAL DAILY: DAILY ESCITALOPRAM OXALATE (ESCITALOPRAM OXALATE) RxNorm: H416323 ESCITALOPRAM OXALATE (ESCITALOPRAM OXALATE) NDC: 05601515736 Advanced Eye Relief Eye Drops(GLYCERIN/PROPYLENE GLYCOL) 15 ML DROPS OPHTHALMIC PRN: NEEDED Advanced Eye Relief Eye Drops (GLYCERIN/PROPYLENE GLYCOL) RxNorm: H969923 Advanced Eye Relief Eye Drops (GLYCERIN/PROPYLENE GLYCOL) NDC: 15984234760 OXYMETAZOLINE HCL(OXYMETAZOLINE HCL) 15 ML SPRAY NASAL PRN: NEEDED OXYMETAZOLINE HCL (OXYMETAZOLINE HCL) RxNorm: P8153811 OXYMETAZOLINE HCL (OXYMETAZOLINE HCL) NDC: 86787886229 CLEAR EYES REDNESS RELIEF DROP(NAPHAZOLINE HCL/GLYCERIN) 30 ML DROPS OPHTHALMIC PRN: NEEDED CLEAR EYES REDNESS RELIEF DROP (NAPHAZOLINE HCL/GLYCERIN) RxNorm: E4953019 CLEAR EYES REDNESS RELIEF DROP (NAPHAZOLINE HCL/GLYCERIN) NDC: 18342634278 NICOTROL INHALER(NICOTINE) 10 MG/CART INHALER INHALED PRN: NEEDED NICOTROL INHALER (NICOTINE) RxNorm: H2387750 NICOTROL INHALER (NICOTINE) RxNorm: H590470 NICOTROL INHALER (NICOTINE) NDC: 89473624717 History Of Encounters Encounters Visit/Account #[id number] (July 21, 2013 12:26am - July 25, 2013 11:00am) Account Status Physican Of Record Reason For Visit Visit Diagnosis Start Date/Time Stop Date/Time IN EVARISTO BUCKNER MD ETOH INTOXICATION, RESP. FAILURE, INTENTIONAL OD Not Available Jul 21, 2013 12:26am Jul 25, 2013 11:00am History of Procedures Procedure List No Procedures Discharge Instructions Discharge Instructions Visit/Account #[id number] (July 21, 2013 12:26am - July 25, 2013 11:00am) No Discharge Instructions Reports. Social History Social History No Social History Data Immunizations Immunizations Patient Unit Number: [id number] Immunizations No Immunizations Administered
--- NOTE | 2018-02-04 14:50 | Anesthesia-General Post-Op ---
MAC Patient Condition Mental Status/LOC: Same as Preop Cardiovascular: Satisfactory Nausea/Vomiting: Absent Respiratory: Satisfactory Pain: Controlled Complications: Absent Post Op Complications Complications None Follow Up Care/Instructions Patient Instructions None needed. Anesthesiology Discharge Order Discharge Order Patient is doing well, no complaints, stable vital signs, no apparent adverse anesthesia problems. No complications reported per nursing. JULIA FROST CRNA Feb 04, 2018 14:50
--- OUTSIDE RECORDS SUMMARY | 2018-02-04 14:51 | XMS REPORT | Continuity of Care Document ---
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 DEPR PSYCH-SEVERE 08/13/2013 Other 311 DEPRESSIVE DISORDER NEC 08/13/2013 Other 401.1 BENIGN HYPERTENSION 08/13/2013 Other 496 CHR AIRWAY OBSTRUCT NEC 08/13/2013 Other 530.81 ESOPHAGEAL REFLUX 08/19/2013 Other 719.45 JOINT PAIN-PELVIS 08/19/2013 Other 724.2 LUMBAGO 08/20/2013 Other 724.2 LUMBAGO 08/21/2013 Other 309.0 ADJUSTMENT DISORDER WITH DEPRESSED MOOD 08/21/2013 Other 724.2 LUMBAGO 09/01/2013 DENEEN CARROLL AGUILA Ot 724.2 LUMBAGO 09/01/2013 DENEEN CARROLL AGUILA Ot 846.0 SPRAIN LUMBOSACRAL 09/01/2013 DENEEN AGUILA CARROLL Bond Ot E849.0 ACCIDENT IN HOME 09/01/2013 DENEEN CARROLL oBnd Ot E888.9 FALL NOS 09/01/2013 Other 511.0 PLEURISY W /O EFFUS OR TB 09/01/2013 Other 785.0 TACHYCARDIA NOS 09/01/2013 Other 786.50 CHEST PAIN NOS 09/01/2013 Other 786.59 CHEST PAIN NEC 09/01/2013 Other V58.63 LONG-TERM (CURRENT)USE OF ANTIPLATELET/ANTITHROMBOTIC 09/01/2013 Other V58.65 LONG-TERM (CURRENT)USE OF STEROIDS 09/25/2013 Other 311 DEPRESSIVE DISORDER NEC 09/25/2013 Other 496 CHR AIRWAY OBSTRUCT NEC 09/25/2013 Other 786.52 PAINFUL RESPIRATION 10/09/2013 DELANEY ROMERO, LUZ P Ot 521.00 UNSPEC DENTAL CARIES 10/09/2013 DELANEY ROMERO, LUZ P Ot 525.9 DENTAL DISORDER NOS 10/09/2013 DELANEY ROMERO, LUZ P Ot 784.92 JAW PAIN 10/10/2013 Other 521.00 UNSPEC DENTAL CARIES 10/10/2013 Other 523.00 ACUTE GINGIVITIS, PLAQUE INDUCED 10/10/2013 Other 724.2 LUMBAGO 12/25/2013 Other 496 CHR AIRWAY OBSTRUCT NEC 12/25/2013 Other 511.0 PLEURISY W /O EFFUS OR TB 01/13/2014 Other 311 DEPRESSIVE DISORDER NEC 01/13/2014 Other 724.2 LUMBAGO 04/12/2014 Other 882.0 OPEN WOUND OF HAND 04/12/2014 Other 959.19 OTH INJURY OF OTHER SITES OF TRUNK 04/12/2014 Other E849.0 ACCIDENT IN HOME 04/12/2014 Other E885.9 FALL FROM SLIPPING, TRIPPING, OR STUMBLING NEC 05/06/2014 Other 410.70 AC MYOCARD INFARCT,SUBENDO INFARCT,EPISODE UNSPEC 05/06/2014 Other 786.05 SHORTNESS OF BREATH 05/06/2014 Other 786.50 CHEST PAIN NOS 05/06/2014 Bret Powell MD 305.1 TOBACCO USE DISORDER 05/06/2014 Bret Powell MD 401.9 HYPERTENSION NOS 05/06/2014 Andre ROMERO, Bret Betancourt F 410.71 AC MYOCARDIAL INFARCT,SUBENDO INFARCT,INITIAL EPIS 05/06/2014 Bret Powell MD F 427.31 ATRIAL FIBRILLATION 05/06/2014 Bret Powell MD F 496 CHR AIRWAY OBSTRUCT NEC 05/06/2014 Bret Powell MD 530.81 ESOPHAGEAL REFLUX 05/06/2014 Bret Powell MD 786.50 05/06/2014 Bret Powell MD V06.6 PROPHYLACTIC VACC AGNST STREPTOCOCCUS PNEUM INFL 05/06/2014 Bret Powell MD V12.54 PERSONAL HX OF TIA, CEREBRAL INFARCTION W/OUT RES 05/16/2014 Other 305.00 ALCOHOL ABUSE-UNSPEC 05/16/2014 Other 786.59 CHEST PAIN NEC 05/16/2014 Other 959.19 OTH INJURY OF OTHER SITES OF TRUNK 05/16/2014 Other E849.0 ACCIDENT IN HOME 05/16/2014 Other E888.8 FALL NEC 05/16/2014 Other V45.89 POSTSURGICAL STATES NEC 05/24/2014 Other 453.82 ACUTE VENOUS EMBOLISM AND THROMBOSIS OF DEEP VEINS OF UE 05/24/2014 Other 729.5 PAIN IN LIMB 05/24/2014 Other V58.63 LONG-TERM (CURRENT)USE OF ANTIPLATELET/ANTITHROMBOTIC 05/24/2014 Other V58.66 LONG- TERM (CURRENT) USE OF ASPIRIN 06/01/2014 Other 453.40 ACUTE VENOUS EMBOLISM THROMBOSIS UNSP DEEP VESSELS OF LE 06/03/2014 Ot 453.83 ACUTE VENOUS EMBOLISM THROMBOSIS OF UP 06/03/2014 Ot 729.5 PAIN IN LIMB 06/03/2014 Ot 790.92 COAGULATION PROFILE, ABNORMAL 06/05/2014 Ot 305.1 06/05/2014 Ot 401.9 06/05/2014 Ot 496 06/05/2014 Ot 786.50 06/11/2014 Ot 305.1 TOBACCO USE DISORDER 06/11/2014 Ot 784.7 EPISTAXIS 06/11/2014 Ot V58.61 ANTICOAGULANTS,LT,CURRENT USE 06/11/2014 Other 285.9 ANEMIA NOS 06/11/2014 Other 784.0 HEADACHE 06/11/2014 Other 784.7 EPISTAXIS 06/11/2014 Other V58.61 ANTICOAGULANTS,LT,CURRENT USE 06/11/2014 Other V58.66 LONG- TERM (CURRENT) USE OF ASPIRIN 06/11/2014 Other V58.69 OTH MED, LT,CURRENT USE 06/18/2014 Other 780.39 OTHER CONVULSIONS 06/18/2014 Other V12.51 HX- VENOUS THROMBOSIS EMBOLISM 06/18/2014 Other V58.61 ANTICOAGULANTS,LT,CURRENT USE 07/03/2014 Other 272.4 HYPERLIPIDEMIA NEC/NOS 07/03/2014 Other 300.4 DYSTHYMIC DISORDER 07/03/2014 Other 338.29 OTHER CHRONIC PAIN 07/03/2014 Other 401.1 BENIGN HYPERTENSION 07/03/2014 Other 530.81 ESOPHAGEAL REFLUX 07/03/2014 Other 780.79 OTH MALAISE FATIGUE 07/03/2014 Other 780.99 OTHER GENERAL SYMPTOMS NOS 07/03/2014 Other V58.61 ANTICOAGULANTS,LT,CURRENT USE 07/07/2014 Oswaldo ROMERO, Lizbeth F 272.4 Other hyperlipidemia 07/07/2014 Oswaldo ROMERO, Lizbeth F 780.99 chronic pain 07/21/2014 Other 272.4 HYPERLIPIDEMIA NEC/NOS 07/21/2014 Other 280.9 IRON DEFIC ANEMIA NOS 07/21/2014 Other 285.1 AC POSTHEMORRHAG ANEMIA 07/21/2014 Other 300.00 ANXIETY STATE NOS 07/21/2014 Other 305.1 TOBACCO USE DISORDER 07/21/2014 Other 311 DEPRESSIVE DISORDER NEC 07/21/2014 Other 401.9 HYPERTENSION NOS 07/21/2014 Other 412 OLD MYOCARDIAL INFARCT 07/21/2014 Other 413.9 ANGINA PECTORIS NEC/NOS 07/21/2014 Other 414.01 CORONARY ATHEROSCLEROSIS OF [place] CORONARY VESSEL 07/21/2014 Other 496 CHR AIRWAY OBSTRUCT NEC 07/21/2014 Other 564.00 UNSPEC CONSTIPATION 07/21/2014 Other 784.7 EPISTAXIS 07/21/2014 Other 820.09 FX FEMUR INTRCAPS NEC-CL 07/21/2014 Other E888.9 FALL NOS 07/21/2014 Other V11.3 HX OF ALCOHOLISM 07/21/2014 Other V12.51 HX- VENOUS THROMBOSIS EMBOLISM 07/21/2014 Other V12.54 PERSONAL HX OF TIA, CEREBRAL INFARCTION W/OUT RES DEFICITS 07/21/2014 Other V45.82 PERCUTANEOUS TRANSLUM CORON ANGIOPLASTY STATUS 07/21/2014 Other V58.61 ANTICOAGULANTS,LT,CURRENT USE 07/21/2014 Other V58.66 LONG- TERM (CURRENT) USE OF ASPIRIN 08/06/2014 Other 272.4 HYPERLIPIDEMIA NEC/NOS 08/06/2014 Other 300.00 ANXIETY STATE NOS 08/06/2014 Other 311 DEPRESSIVE DISORDER NEC 08/06/2014 Other 401.9 HYPERTENSION NOS 08/06/2014 Other 412 OLD MYOCARDIAL INFARCT 08/06/2014 Other 414.00 CORON ATHEROSCLER NOS TYPE VESSEL, [place] OR GRAFT 08/06/2014 Other 427.31 ATRIAL FIBRILLATION 08/06/2014 Other 496 CHR AIRWAY OBSTRUCT NEC 08/06/2014 Other 530.81 ESOPHAGEAL REFLUX 08/06/2014 Other 820.09 FX FEMUR INTRCAPS NEC-CL 08/06/2014 Other E888.8 FALL NEC 08/06/2014 Other V45.89 POSTSURGICAL STATES NEC 08/06/2014 Other V58.61 ANTICOAGULANTS,LT,CURRENT USE 08/10/2014 DG 388.71 OTOGENIC PAIN 08/10/2014 DG 820.8 FX NECK OF FEMUR NOS-CL 08/10/2014 [address] NOS 08/10/2014 DG E888.8 FALL NEC 08/29/2014 MANUELA WILBURN APRN Other 578.9 GASTROINTEST HEMORR NOS 08/29/2014 MANUELA WILBURN APRN Other 780.4 DIZZINESS AND GIDDINESS 08/29/2014 MANUELA WILBURN APRN Other 780.79 OTH MALAISE FATIGUE 08/29/2014 MANUELA WILBURN APRN Other 959.6 HIP THIGH INJURY NOS 08/29/2014 MANUELA WILBURN APRN Other E849.0 ACCIDENT IN HOME 08/29/2014 MANUELA WILBURN APRN Other E888.8 FALL NEC 09/03/2014 SABINA SALINAS MD Other 272.4 HYPERLIPIDEMIA NEC/NOS 09/03/2014 SABINA SALINAS MD Other 285.1 AC POSTHEMORRHAG ANEMIA 09/03/2014 SABINA SALINAS MD Other 300.00 ANXIETY STATE NOS 09/03/2014 SABINA SALINAS MD 305.1 TOBACCO USE DISORDER 09/03/2014 SABINA SALINAS MD 311 DEPRESSIVE DISORDER NEC 09/03/2014 SABINA SALINAS MD 338.29 OTHER CHRONIC PAIN 09/03/2014 SABINA SALINAS MD 401.9 HYPERTENSION NOS 09/03/2014 SABINA SALINAS MD 414.01 CORONARY ATHEROSCLEROSIS OF [place] CORONARY VESSEL 09/03/2014 SABINA SALINAS MD 427.31 ATRIAL FIBRILLATION 09/03/2014 SABINA SALINAS MD 438.20 LATE EFF-CEREBR DIS,HEMIPLEGIA AFFECTING UNSPECIFIED SIDE 09/03/2014 SABINA SALINAS MD 458.9 HYPOTENSION NOS 09/03/2014 SABINA SALINAS MD 496 CHR AIRWAY OBSTRUCT NEC 09/03/2014 SABINA SALINAS MD 530.81 ESOPHAGEAL REFLUX 09/03/2014 SABINA SALINAS MD 564.00 UNSPEC CONSTIPATION 09/03/2014 SABINA SALINAS MD 578.9 GASTROINTEST HEMORR NOS 09/03/2014 SABINA SALINAS MD 599.0 URIN TRACT INFECTION NOS 09/03/2014 SABINA SALINAS MD 600.00 HYPERTROPHY (BENIGN) OF PROSTATE W/O URINARY OBST OTH LUTS 09/03/2014 SABINA SALINAS MD 719.45 JOINT PAIN-PELVIS 09/03/2014 SABINA SALINAS MD 723.1 CERVICALGIA 09/03/2014 SABINA SALINAS MD 724.2 LUMBAGO 09/03/2014 SABINA SALINAS MD 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 09/03/2014 SABINA SALINAS MD 784.0 HEADACHE 09/03/2014 SABINA SALINAS MD 789.00 ABDOMINAL PAIN, UNSPECIFIED SITE 09/03/2014 SABINA SALINAS MD 790.92 COAGULATION PROFILE, ABNORMAL 09/03/2014 SABINA SALNIAS MD E934.2 ADV EFF ANTICOAGULANTS 09/03/2014 SABINA SALINAS MD V11.3 HX OF ALCOHOLISM 09/03/2014 SABINA SALINAS MD V12.51 HX-VENOUS THROMBOSIS EMBOLISM 09/03/2014 SABINA SALINAS MD V12.71 PERSONAL HISTORY OF PEPTIC ULCER DISEASE 09/03/2014 SABINA SALINAS MD V14.8 HX-DRUG ALLERGY NEC 09/03/2014 RITA MD, SABINA K Other V45.79 ACQRD ABSENCE OF OTH ORGAN 09/03/2014 SABINA SALINAS MD Other V58.61 ANTICOAGULANTS,LT,CURRENT USE 09/03/2014 SABINA SALINAS MD Other V58.63 LONG-TERM(CURRENT)USE OF ANTIPLATELET/ANTITHROMBOTIC 09/04/2014 JASBIR BAÑUELOS MD 272.4 HYPERLIPIDEMIA NEC/NOS 09/04/2014 JASBIR BAÑUELOS MD 280.0 CHR BLOOD LOSS ANEMIA 09/04/2014 JASBIR BAÑUELOS MD A 300.00 ANXIETY STATE NOS 09/04/2014 JASBIR BAÑUELOS MD A 311 DEPRESSIVE DISORDER NEC 09/04/2014 JASBIR BAÑUELOS MD 338.29 OTHER CHRONIC PAIN 09/04/2014 JASBIR BAÑUELOS MD 401.9 HYPERTENSION NOS 09/04/2014 JASBIR BAÑUELOS MD A 414.01 CORONARY ATHEROSCLEROSIS OF [place] CORONARY VESSEL 09/04/2014 JASBIR BAÑUELOS MD 427.31 ATRIAL FIBRILLATION 09/04/2014 JASBIR BAÑUELOS MD A 429.2 ASCVD 09/04/2014 JASBIR BAÑUELOS MD A 438.20 LATE EFF-CEREBR DIS,HEMIPLEGIA AFFECTING UNSPECIFI 09/04/2014 JASBIR BAÑUELOS MD 496 CHR AIRWAY OBSTRUCT NEC 09/04/2014 JASBIR BAÑUELOS MD A 530.81 ESOPHAGEAL REFLUX 09/04/2014 JASBIR BAÑUELOS MD A 536.8 STOMACH FUNCTION DIS NEC 09/04/2014 JASBIR BAÑUELOS MD 600.00 HYPERTROPHY (BENIGN) OF PROSTATE W/O URINARY OBST 09/04/2014 JASBIR BAÑUELOS MD A 724.2 LUMBAGO 09/04/2014 JASBIR BAÑUELOS MD V12.51 HX-VENOUS THROMBOSIS EMBOLISM 09/04/2014 JASBIR BAÑUELOS MD V14.8 HX-DRUG ALLERGY NEC 09/04/2014 JASBIR BAÑUELOS MD V15.82 HISTORY OF TOBACCO USE 09/04/2014 JASBIR BAÑUELOS MD V43.64 HIP JOINT REPLACEMENT STATUS 09/04/2014 JASBIR BAÑUELOS MD V45.82 PERCUTANEOUS TRANSLUM CORON ANGIOPLASTY STATUS 09/04/2014 JASBIR BAÑUELOS MD V57.89 REHABILITATION PROC NEC 09/04/2014 JASBIR BAÑUELOS MD V60.3 PERSON LIVING ALONE 09/04/2014 JASBIR BAÑUELOS MD 272.4 HYPERLIPIDEMIA NEC/NOS 09/04/2014 JASBIR BAÑUELOS MD 280.0 CHR BLOOD LOSS ANEMIA 09/04/2014 JASBIR BAÑUELOS MD 300.00 ANXIETY STATE NOS 09/04/2014 JASBIR BAÑUELOS MD 311 DEPRESSIVE DISORDER NEC 09/04/2014 JASBIR BAÑUELOS MD 338.29 OTHER CHRONIC PAIN 09/04/2014 JASBIR BAÑUELOS MD 401.9 HYPERTENSION NOS 09/04/2014 JASBIR BAÑUELOS MD 414.01 CORONARY ATHEROSCLEROSIS OF [place] CORONARY VESSEL 09/04/2014 JASBIR BAÑUELOS MD 427.31 ATRIAL FIBRILLATION 09/04/2014 JASBIR BAÑUELOS MD 429.2 ASCVD 09/04/2014 JASBIR BAÑUELOS MD 438.20 LATE EFF-CEREBR DIS,HEMIPLEGIA AFFECTING UNSPECIFI 09/04/2014 JASBIR BAÑUELOS MD 496 CHR AIRWAY OBSTRUCT NEC 09/04/2014 JASBIR BAÑUELOS MD 530.81 ESOPHAGEAL REFLUX 09/04/2014 JASBIR BAÑUELOS MD 536.8 STOMACH FUNCTION DIS NEC 09/04/2014 JASBIR BAÑUELOS MD 600.00 HYPERTROPHY (BENIGN) OF PROSTATE W/O URINARY OBST 09/04/2014 JASBIR BAÑUELOS MD 724.2 LUMBAGO 09/04/2014 JASBIR BAÑUELOS MD V12.51 HX-VENOUS THROMBOSIS EMBOLISM 09/04/2014 JASBIR BAÑUELOS MD V14.8 HX-DRUG ALLERGY NEC 09/04/2014 JASBIR BAÑUELOS MD V15.82 HISTORY OF TOBACCO USE 09/04/2014 JASBIR BAÑUELOS MD V43.64 HIP JOINT REPLACEMENT STATUS 09/04/2014 JASBIR BAÑUELOS MD V45.82 PERCUTANEOUS TRANSLUM CORON ANGIOPLASTY STATUS 09/04/2014 JASBIR BAÑUELOS MD V57.89 REHABILITATION PROC NEC 09/04/2014 BAÑUELOS MD, DIRK T A V60.3 PERSON LIVING ALONE 09/04/2014 JASBIR BAÑUELOS MD Other 272.4 HYPERLIPIDEMIA NEC/NOS 09/04/2014 JASBIR BAÑUELOS MD Other 280.0 CHR BLOOD LOSS ANEMIA 09/04/2014 JASBIR BAÑUELOS MD Other 300.00 ANXIETY STATE NOS 09/04/2014 JASBIR BAÑUELOS MD Other 311 DEPRESSIVE DISORDER NEC 09/04/2014 JASBIR BAÑUELOS MD Other 338.29 OTHER CHRONIC PAIN 09/04/2014 JASBIR BAÑUELOS MD Other 401.9 HYPERTENSION NOS 09/04/2014 JASBIR BAÑUELOS MD Other 414.01 CORONARY ATHEROSCLEROSIS OF [place] CORONARY VESSEL 09/04/2014 JASBIR BAÑUELOS MD Other 427.31 ATRIAL FIBRILLATION 09/04/2014 JASBIR BAÑUELOS MD Other 429.2 ASCVD 09/04/2014 JASBIR BAÑUELOS MD Other 438.20 LATE EFF-CEREBR DIS,HEMIPLEGIA AFFECTING UNSPECIFIED SIDE 09/04/2014 JASBIR BAÑUELOS MD Other 496 CHR AIRWAY OBSTRUCT NEC 09/04/2014 JASBIR BAÑUELOS MD 530.81 ESOPHAGEAL REFLUX 09/04/2014 JASBIR BAÑUELOS MD Other 536.8 STOMACH FUNCTION DIS NEC 09/04/2014 JASBIR BAÑUELOS MD Other 600.00 HYPERTROPHY (BENIGN) OF PROSTATE W/O URINARY OBST OTH LUTS 09/04/2014 JASBIR BAÑUELOS MD Other 724.2 LUMBAGO 09/04/2014 JASBIR BAÑUELOS MD Other V12.51 HX-VENOUS THROMBOSIS EMBOLISM 09/04/2014 JASBIR BAÑUELOS MD Other V14.8 HX-DRUG ALLERGY NEC 09/04/2014 JASBIR BAÑUELOS MD Other V15.82 HISTORY OF TOBACCO USE 09/04/2014 JASBIR BAÑUELOS MD V43.64 HIP JOINT REPLACEMENT STATUS 09/04/2014 JASBIR BAÑUELOS MD V45.82 PERCUTANEOUS TRANSLUM CORON ANGIOPLASTY STATUS 09/04/2014 JASBIR BAÑUELOS MD V57.89 REHABILITATION PROC NEC 09/04/2014 JASBIR BAÑUELOS MD V60.3 PERSON LIVING ALONE 09/04/2014 BAÑUELOS MD, DIRK T Other 272.4 HYPERLIPIDEMIA NEC/NOS 09/04/2014 JASBIR BAÑUELOS MD Other 280.0 CHR BLOOD LOSS ANEMIA 09/04/2014 JASBIR BAÑUELOS MD Other 300.00 ANXIETY STATE NOS 09/04/2014 JASBIR BAÑUELOS MD Other 311 DEPRESSIVE DISORDER NEC 09/04/2014 JASBIR BAÑUELOS MD Other 338.29 OTHER CHRONIC PAIN 09/04/2014 JASBIR BAÑUELOS MD Other 401.9 HYPERTENSION NOS 09/04/2014 JASBIR BAÑUELOS MD Other 414.01 CORONARY ATHEROSCLEROSIS OF [place] CORONARY VESSEL 09/04/2014 JASBIR BAÑUELOS MD Other 427.31 ATRIAL FIBRILLATION 09/04/2014 JASBIR BAÑUELOS MD Other 429.2 ASCVD 09/04/2014 JASBIR BAÑUELOS MD Other 438.20 LATE EFF-CEREBR DIS,HEMIPLEGIA AFFECTING UNSPECIFIED SIDE 09/04/2014 JASBIR BAÑUELOS MD Other 496 CHR AIRWAY OBSTRUCT NEC 09/04/2014 JASBIR BAÑUELOS MD Other 530.81 ESOPHAGEAL REFLUX 09/04/2014 JASBIR BAÑUELOS MD Other 536.8 STOMACH FUNCTION DIS NEC 09/04/2014 JASBIR BAÑUELOS MD Other 600.00 HYPERTROPHY (BENIGN) OF PROSTATE W/O URINARY OBST OTH LUTS 09/04/2014 JASBIR BAÑUELOS MD Other 724.2 LUMBAGO 09/04/2014 JASBIR BAÑUELOS MD Other V12.51 HX-VENOUS THROMBOSIS EMBOLISM 09/04/2014 JASBIR BAÑUELOS MD Other V14.8 HX-DRUG ALLERGY NEC 09/04/2014 JASBIR BAÑUELOS MD Other V15.82 HISTORY OF TOBACCO USE 09/04/2014 JASBIR BAÑUELOS MD Other V43.64 HIP JOINT REPLACEMENT STATUS 09/04/2014 JASBIR BAÑUELOS MD Other V45.82 PERCUTANEOUS TRANSLUM CORON ANGIOPLASTY STATUS 09/04/2014 JASBIR BAÑUELOS MD Other V57.89 REHABILITATION PROC NEC 09/04/2014 JASBIR BAÑUELOS MD Other V60.3 PERSON LIVING ALONE 09/04/2014 JASBIR BAÑUELOS MD Other 272.4 HYPERLIPIDEMIA NEC/NOS 09/04/2014 JASBIR BAÑUELOS MD Other 280.0 CHR BLOOD LOSS ANEMIA 09/04/2014 JASBIR BAÑUELOS MD Other 300.00 ANXIETY STATE NOS 09/04/2014 JASBIR BAÑUELOS MD 311 DEPRESSIVE DISORDER NEC 09/04/2014 JASBIR BAÑUELOS MD Other 338.29 OTHER CHRONIC PAIN 09/04/2014 JASBIR BAÑUELOS MD Other 401.9 HYPERTENSION NOS 09/04/2014 JASBIR BAÑUELOS MD Other 414.01 CORONARY ATHEROSCLEROSIS OF [place] CORONARY VESSEL 09/04/2014 JASBIR BAÑUELOS MD Other 427.31 ATRIAL FIBRILLATION 09/04/2014 JASBIR BAÑUELOS MD Other 429.2 ASCVD 09/04/2014 JASBIR BAÑUELOS MD Other 438.20 LATE EFF-CEREBR DIS,HEMIPLEGIA AFFECTING UNSPECIFIED SIDE 09/04/2014 JASBIR BAÑUELOS MD Other 496 CHR AIRWAY OBSTRUCT NEC 09/04/2014 JASBIR BAÑUELOS MD Other 530.81 ESOPHAGEAL REFLUX 09/04/2014 JASBIR BAÑUELOS MD Other 536.8 STOMACH FUNCTION DIS NEC 09/04/2014 JASBIR BAÑUELOS MD Other 600.00 HYPERTROPHY (BENIGN) OF PROSTATE W/O URINARY OBST OTH LUTS 09/04/2014 JASBIR BAÑUELOS MD Other 724.2 LUMBAGO 09/04/2014 JASBIR BAÑUELOS MD Other V12.51 HX-VENOUS THROMBOSIS EMBOLISM 09/04/2014 JASBIR BAÑUELOS MD Other V14.8 HX-DRUG ALLERGY NEC 09/04/2014 JASBIR BAÑUELOS MD Other V15.82 HISTORY OF TOBACCO USE 09/04/2014 JASBIR BAÑUELOS MD Other V43.64 HIP JOINT REPLACEMENT STATUS 09/04/2014 JASBIR BAÑUELOS MD Other V45.82 PERCUTANEOUS TRANSLUM CORON ANGIOPLASTY STATUS 09/04/2014 JASBIR BAÑUELOS MD V57.89 REHABILITATION PROC NEC 09/04/2014 JASBIR BAÑUELOS MD Other V60.3 PERSON LIVING ALONE 09/08/2014 JASBIR BAÑUELOS MD Other 272.4 HYPERLIPIDEMIA NEC/NOS 09/08/2014 JASBIR BAÑUELOS MD Other 280.0 CHR BLOOD LOSS ANEMIA 09/08/2014 JASBIR BAÑUELOS MD Other 285.1 AC POSTHEMORRHAG ANEMIA 09/08/2014 JASBIR BAÑUELOS MD Other 300.00 ANXIETY STATE NOS 09/08/2014 JASBIR BAÑUELOS MD Other 311 DEPRESSIVE DISORDER NEC 09/08/2014 JASBIR BAÑUELOS MD Other 338.29 OTHER CHRONIC PAIN 09/08/2014 JASBIR BAÑUELOS MD Other 401.9 HYPERTENSION NOS 09/08/2014 JASBIR BAÑUELOS MD Other 414.01 CORONARY ATHEROSCLEROSIS OF [place] CORONARY VESSEL 09/08/2014 JASBIR BAÑUELOS MD Other 427.31 ATRIAL FIBRILLATION 09/08/2014 JASBIR BAÑUELOS MD Other 429.2 ASCVD 09/08/2014 JASBIR BAÑUELOS MD Other 438.20 LATE EFF-CEREBR DIS,HEMIPLEGIA AFFECTING UNSPECIFIED SIDE 09/08/2014 JASBIR BAÑUELOS MD Other 496 CHR AIRWAY OBSTRUCT NEC 09/08/2014 JASBIR BAÑUELOS MD Other 530.81 ESOPHAGEAL REFLUX 09/08/2014 JASBIR BAÑUELOS MD Other 536.8 STOMACH FUNCTION DIS NEC 09/08/2014 JASBIR BAÑUELOS MD Other 600.00 HYPERTROPHY (BENIGN) OF PROSTATE W/O URINARY OBST OTH LUTS 09/08/2014 JASBIR BAÑUELOS MD Other 724.2 LUMBAGO 09/08/2014 JASBIR BAÑUELOS MD Other 799.23 IMPULSIVENESS 09/08/2014 JASBIR BAÑUELOS MD Other 820.8 FX NECK OF FEMUR NOS-CL 09/08/2014 JASBIR BAÑUELOS MD Other E888.9 FALL NOS 09/08/2014 JASBIR BAÑUELOS MD Other V12.51 HX-VENOUS THROMBOSIS EMBOLISM 09/08/2014 JASBIR BAÑUELOS MD Other V14.8 HX-DRUG ALLERGY NEC 09/08/2014 JASBIR BAÑUELOS MD Other V15.82 HISTORY OF TOBACCO USE 09/08/2014 JASBIR BAÑUELOS MD Other V43.64 HIP JOINT REPLACEMENT STATUS 09/08/2014 JASBIR BAÑUELOS MD Other V45.82 PERCUTANEOUS TRANSLUM CORON ANGIOPLASTY STATUS 09/08/2014 JASBIR BAÑUELOS MD Other V57.89 REHABILITATION PROC NEC 09/08/2014 JASBIR BAÑUELOS MD Other V58.75 AFTERCARE POST SURGERY TEETH,ORAL CAVITY/DIGESTIVE NEC 09/08/2014 JASBIR BAÑUELOS MD Other V60.3 PERSON LIVING ALONE 09/20/2014 VASILE BECKWITH PA-C Other 719.45 JOINT PAIN-PELVIS 09/20/2014 VASILE BECKWITH PA-C Other 780.79 OTH MALAISE FATIGUE 09/20/2014 VASILE BECKWITH PA-C Other 787.02 NAUSEA ALONE 09/21/2014 MARVIN MERCEDES DO 239.2 BONE/SKIN NEOPLASM NOS 09/21/2014 MARVIN MERCEDES DO 338.29 OTHER CHRONIC PAIN 09/21/2014 MARVIN MERCEDES DO 537.89 GASTRODUODENAL DIS NEC 09/21/2014 MARVIN MERCEDES DO 780.99 OTHER GENERAL SYMPTOMS NOS 10/16/2014 MARVIN MERCEDES DO 780.79 OTH MALAISE FATIGUE 10/16/2014 MARVIN MERCEDES DO 451.83 PHLEBITIS THROMBOPHLEBITIS,DEEP VEINS UPPER EXT 10/16/2014 MARVIN MERCEDES DO 780.79 OTH MALAISE FATIGUE 10/16/2014 MARVIN MERCEDES DO 451.83 PHLEBITIS THROMBOPHLEBITIS,DEEP VEINS UPPER EXT 10/16/2014 MARVIN MERCEDES DO 719.45 JOINT PAIN-PELVIS 10/16/2014 MARVIN MERCEDES DO 780.79 OTH MALAISE FATIGUE 10/19/2014 MARVIN MERCEDES DO 451.83 PHLEBITIS THROMBOPHLEBITIS,DEEP VEINS UPPER EXT 10/19/2014 MARVIN MERCEDES DO 451.83 PHLEBITIS THROMBOPHLEBITIS,DEEP VEINS UPPER EXT 10/19/2014 MARVIN MERCEDES DO 451.83 PHLEBITIS THROMBOPHLEBITIS,DEEP VEINS UPPER EXT 11/13/2014 SOPHIE DISLA APRN Other 414.00 CORON ATHEROSCLER NOS TYPE VESSEL, [place] OR GRAFT 11/13/2014 SOPHIE DISLA APRN Other 427.31 ATRIAL FIBRILLATION 11/13/2014 SOPHIE DISLA APRN Other 959.6 HIP THIGH INJURY NOS 11/13/2014 KARUNACATRACHOSOPHIE EVELINA Other E849.0 ACCIDENT IN HOME 11/13/2014 KARUNAAVINASHSOPHIE MARTIN EVELINA Other E888.8 FALL NEC 11/15/2014 MANUELA WILBURN APRN Other 345.90 EPILEPSY UNSPEC W/O MENTION INTRACTABLE EPILEPSY 11/15/2014 MANUELA WILBURN APRN Other 728.85 SPASM OF MUSCLE 11/15/2014 MANUELA WILBURN APRN Other 729.1 MYALGIA AND MYOSITIS NOS 11/15/2014 MANUELA WILBURN APRN DG 789.00 ABDOMINAL PAIN, UNSPECIFIED SITE 11/16/2014 MARVIN MERCEDES DO V58.61 ANTICOAGULANTS,LT,CURRENT USE 11/16/2014 MARVIN MERCEDES DO V58.61 ANTICOAGULANTS,LT,CURRENT USE 11/16/2014 MARVIN MERCEDES DO 300.02 GENERALIZED ANXIETY DIS 11/16/2014 MARVIN MERCEDES DO 724.2 LUMBAGO 11/16/2014 MARVIN MERCEDES DO 780.39 OTHER CONVULSIONS 11/16/2014 MARVIN MERCEDES DO V58.61 ANTICOAGULANTS,LT,CURRENT USE 11/26/2014 MARVIN MERCEDES DO 709.9 SKIN DISORDER NOS 11/26/2014 MARVIN MERCEDES DO 724.2 LUMBAGO 11/26/2014 MARVIN MERCEDES DO 709.9 SKIN DISORDER NOS 11/26/2014 MARVIN MERCEDES DO 724.2 LUMBAGO 12/02/2014 MARVIN MERCEDES DO 709.9 SKIN DISORDER NOS 12/02/2014 MARVIN MERCEDES DO 724.2 LUMBAGO 12/11/2014 MARVIN MERCEDES DO 338.29 OTHER CHRONIC PAIN 12/11/2014 MARVIN MERCEDES DO 780.99 OTHER GENERAL SYMPTOMS NOS 12/11/2014 MARVIN MERCEDES DO 789.07 ABDOMINAL PAIN, GENERALIZED 12/21/2014 MARVIN MERCEDES DO 789.01 ABDOMINAL PAIN, RIGHT UPPER QUADRANT 12/21/2014 MARVIN MERCEDES DO 789.01 ABDOMINAL PAIN, RIGHT UPPER QUADRANT 12/21/2014 MARVIN MERCEDES DO 789.01 ABDOMINAL PAIN, RIGHT UPPER QUADRANT 12/23/2014 MARVIN MERCEDES DO 789.01 ABDOMINAL PAIN, RIGHT UPPER QUADRANT 12/28/2014 MARVIN MERCEDES DO 789.01 ABDOMINAL PAIN, RIGHT UPPER QUADRANT 12/28/2014 MARVIN MERCEDES DO V45.89 POSTSURGICAL STATES NEC 12/28/2014 MARVIN MERCEDES DO 789.01 ABDOMINAL PAIN, RIGHT UPPER QUADRANT 12/28/2014 MARVIN MERCEDES DO V45.89 POSTSURGICAL STATES NEC 12/29/2014 MARVIN MERCEDES DO 789.01 ABDOMINAL PAIN, RIGHT UPPER QUADRANT 12/29/2014 MARVIN MERCEDES DO V45.89 POSTSURGICAL STATES NEC 12/31/2014 MARVIN MERCEDES DO 789.01 ABDOMINAL PAIN, RIGHT UPPER QUADRANT 01/14/2015 MARVIN MERCEDES DO K21.9 GASTRO-ESOPHAGEAL REFLUX DISEASE WITHOUT ESOPHAGIT 01/14/2015 MARVIN MERCEDES DO M54.5 LOW BACK PAIN 01/14/2015 MARIVN MERCEDES DO K21.9 GASTRO-ESOPHAGEAL REFLUX DISEASE WITHOUT ESOPHAGITIS 01/14/2015 MARVIN MERCEDES DO M54.5 LOW BACK PAIN 01/20/2015 MARVIN MERCEDES DO S79.911A UNSPECIFIED INJURY OF RIGHT HIP, INITIAL ENCOUNTER 01/20/2015 MARVIN MERCEDES DO W06.XXXA FALL FROM BED, INITIAL ENCOUNTER 01/20/2015 MARVIN MERCEDES DO Y92.092 BEDROOM IN [facility] NON-INSTITUTIONAL RESIDENCE PLACE 02/02/2015 SHADY MORELAND MD G45.9 TRANSIENT CEREBRAL ISCHEMIC ATTACK, UNSPECIFIED 02/02/2015 SHADY MORELAND MD 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 02/03/2015 SHADY MORELAND MD G45.9 TRANSIENT CEREBRAL ISCHEMIC ATTACK, UNSPECIFIED 02/03/2015 SHADY MORELAND MD 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 02/03/2015 SHADY MORELAND MD G45.9 TRANSIENT CEREBRAL ISCHEMIC ATTACK, UNSPECIFIED 02/03/2015 SHADY MORELAND MD 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 02/14/2015 MANUELA WILBURN APRN Other R10.84 GENERALIZED ABDOMINAL PAIN 02/14/2015 AKILAMANUELA EVELINA Other R11.0 NAUSEA 02/14/2015 MARIA WILBURNA EVELINA Other R19.7 DIARRHEA, UNSPECIFIED 02/16/2015 Oswaldo ROMERO, Lizbeth F 435.9 TIA 02/27/2015 AKILAMANUELA EVELINA Other M54.5 LOW BACK PAIN 03/06/2015 VASILE BECKWITH PA-C Other S79.911A UNSPECIFIED INJURY OF RIGHT HIP, INITIAL ENCOUNTER 03/06/2015 VASILE BECKWITH PA-C Other W18.30XA FALL ON SAME LEVEL, UNSPECIFIED, INITIAL ENCOUNTER 03/06/2015 VASILE BECKWITH PA-C Other Y92.[address] IN [facility] (PRIVATE[facility] RESIDENCE PLACE 03/07/2015 VASILE BECKWITH PA-C Other F10.120 ALCOHOL ABUSE WITH INTOXICATION, UNCOMPLICATED 03/07/2015 VASILE BECKWITH PA-C Other M54.9 DORSALGIA, UNSPECIFIED 03/07/2015 VASILE BECKWITH PA-C Other R41.0 DISORIENTATION, UNSPECIFIED 04/19/2015 DANI MA MD Other S39.92XA UNSPECIFIED INJURY OF LOWER BACK, INITIAL ENCOUNTER 04/19/2015 DANI MA MD Other W18.30XA FALL ON SAME LEVEL, UNSPECIFIED, INITIAL ENCOUNTER 04/19/2015 DANI MA MD Other Y92.[address] IN SINGLE-FAMILY (PRIVATE) HOUSE PLACE 04/21/2015 OSWALDO ROMERO, LIZBETH Queen DG R10.84 GENERALIZED ABDOMINAL PAIN 04/21/2015 LIZBETH COLBERT MD DG R41.3 OTHER AMNESIA 04/21/2015 Oswaldo ROMERO, Lizbeth F 780.93 Memory loss 04/21/2015 LIZBETH COLBERT MD Other R10.84 GENERALIZED ABDOMINAL PAIN 04/21/2015 LIZBETH COLBERT MD Other R41.3 OTHER AMNESIA 04/22/2015 LIZBETH COLBERT MD Other R41.3 OTHER AMNESIA 04/26/2015 Oswaldo ROMERO, Lizbeth F 305.50 Opiod abuse, NOS 04/26/2015 MAZIN ROMERO, FIONA Wick Ot I10 ESSENTIAL (PRIMARY) HYPERTENSION 04/26/2015 FIONA RETANA MD Ot M25.551 PAIN IN RIGHT HIP 04/26/2015 FIONA RETANA MD Ot M54.5 LOW BACK PAIN 04/26/2015 FIONA RETANA MD, Ot S70.01XA CONTUSION OF RIGHT HIP, INITIAL ENCOUNTE 04/26/2015 FIONA RETANA MD Ot W19.XXXA UNSPECIFIED FALL, INITIAL ENCOUNTER 04/26/2015 FIONA RETANA MD Ot Z96.641 PRESENCE OF RIGHT ARTIFICIAL HIP JOINT 04/28/2015 SHADY MORELAND MD E05.90 THYROTOXICOSIS, UNSP WITHOUT THYROTOXIC CRISIS OR 04/28/2015 SHADY MORELAND MD R41.82 ALTERED MENTAL STATUS, UNSPECIFIED 04/28/2015 SHADY MORELAND MD Other E05.90 THYROTOXICOSIS, UNSP WITHOUT THYROTOXIC CRISIS OR STORM 04/28/2015 SHADY MORELAND MD Other R41.82 ALTERED MENTAL STATUS, UNSPECIFIED 05/11/2015 LIZBETH COLBERT MD Other E87.6 HYPOKALEMIA 05/11/2015 LIZBETH COLBERT MD Other F10.10 ALCOHOL ABUSE, UNCOMPLICATED 05/11/2015 LIZBETH COLBERT MD Other R41.82 ALTERED MENTAL STATUS, UNSPECIFIED 05/11/2015 LIZBETH COLBERT MD Other R55 SYNCOPE AND COLLAPSE 05/11/2015 LIZBETH COLBERT MD Other Z79.899 OTHER PROTECTION [employer]IE[employer] (CURRENT) DRUG THERAPY 05/12/2015 Oswaldo ROMERO, Lizbeth F 276.8 Hypokalemia 05/12/2015 Oswaldo ROMERO, Lizbeth F 300.4 Depression with anxiety 05/19/2015 NOÉ SHELTON MD Other G89.11 ACUTE PAIN DUE TO TRAUMA 05/19/2015 NOÉ SHELTON MD Other M25.551 PAIN IN RIGHT HIP 05/19/2015 NOÉ SHELTON MD Other S70.01XA CONTUSION OF RIGHT HIP, INITIAL ENCOUNTER 05/19/2015 NOÉ SHELTON MD Other W19.XXXA UNSPECIFIED FALL, INITIAL ENCOUNTER 05/19/2015 NOÉ SHELTON MD Other Y92.002 [facility] 05/19/2015 NOÉ SHELTON MD Other Y99.9 UNSPECIFIED EXTERNAL CAUSE STATUS 05/19/2015 AWAIS OLMOS MD Ot S70.01XA CONTUSION OF RIGHT HIP, INITIAL ENCOUNTE 05/19/2015 AWAIS OLMOS MD Ot W18.39XA OTHER FALL ON SAME LEVEL, INITIAL ENCOUN 05/23/2015 REGINALDO THAYER Other S79.911A UNSPECIFIED INJURY OF RIGHT HIP, INITIAL ENCOUNTER 05/23/2015 REGINALDO THAYER Other W18.30XA FALL ON SAME LEVEL, UNSPECIFIED, INITIAL ENCOUNTER 05/23/2015 REGINALDO THAYER Other Y92.[address] IN SINGLE-FAMILY (PRIVATE) HOUSE PLACE 05/24/2015 MACIE HERNÁNDEZ [id number] PROTE[employer] (CURRENT) USE OF OPIATE ANALGESIC 05/25/2015 OSWALDO ROMERO, LIZBETH Queen Ot I67.82 05/25/2015 OSWALDO ROMERO, LIZBETH Queen Ot R41.2 05/25/2015 OSWALDO ROMERO, LIZBETH Queen Ot R41.3 05/28/2015 Ot 305.1 05/28/2015 Ot 401.9 05/28/2015 Ot 496 05/28/2015 Ot 786.50 05/28/2015 OSWALDO ROMERO, LIZBETH Queen Ot I67.82 05/28/2015 OSWALDO ROMERO, LIZBETH Queen Ot R41.2 05/28/2015 OSWALDO ROMERO, LIZBETH Queen Ot R41.3 06/16/2015 KEYA JENKINS DO Ot M94.0 CHONDROCOSTAL JUNCTION SYNDROME [TIETZE] 06/16/2015 KEYA JENKINS DO Ot R07.89 OTHER CHEST PAIN 06/17/2015 MERLY ROMERO, SHADY WRIGHT F32.9 MAJOR DEPRESSIVE DISORDER, SINGLE EPISODE, UNSPECI 06/17/2015 SHADY MORELAND MD F41.9 ANXIETY DISORDER, UNSPECIFIED 06/17/2015 SHADY MORELAND MD I10 ESSENTIAL (PRIMARY) HYPERTENSION 06/17/2015 SHADY MORELAND MD 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 06/17/2015 SHADY MORELAND MD I48.91 UNSPECIFIED ATRIAL FIBRILLATION 06/17/2015 SHADY MORELAND MD J44.9 CHRONIC OBSTRUCTIVE PULMONARY DISEASE, UNSPECIFIED 06/17/2015 SHADY MORELNAD MD K21.9 GASTRO-ESOPHAGEAL REFLUX DISEASE WITHOUT ESOPHAGIT 06/17/2015 SHADY MORELAND MD M54.5 LOW BACK PAIN 06/17/2015 SHADY MORELAND MD R07.9 CHEST PAIN, UNSPECIFIED 06/17/2015 SHADY MORELAND MD Z86.718 PERSONAL HISTORY OF OTHER VENOUS THROMBOSIS AND EM 06/17/2015 SHADY MORELAND MD Z86.73 PRSNL HX OF TIA (TIA), 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 06/17/2015 SHADY MORELAND MD F32.9 MAJOR DEPRESSIVE DISORDER, SINGLE EPISODE, UNSPECIFIED 06/17/2015 SHADY MORELAND MD F41.9 ANXIETY DISORDER, UNSPECIFIED 06/17/2015 SHADY MORELAND MD I10 ESSENTIAL (PRIMARY) HYPERTENSION 06/17/2015 SHADY MORELAND MD 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CTRS 06/17/2015 SHADY MORELAND MD I48.91 UNSPECIFIED ATRIAL FIBRILLATION 06/17/2015 HSADY MORELAND MD J44.9 CHRONIC OBSTRUCTIVE PULMONARY DISEASE, UNSPECIFIED 06/17/2015 SHADY MORELAND MD K21.9 GASTRO-ESOPHAGEAL REFLUX DISEASE WITHOUT ESOPHAGITIS 06/17/2015 SHADY MORELAND MD M54.5 LOW BACK PAIN 06/17/2015 SHADY MORELAND MD R07.9 CHEST PAIN, UNSPECIFIED 06/17/2015 SHADY MORELAND MD Z86.718 PERSONAL HISTORY OF OTHER VENOUS THROMBOSIS AND EMBOLISM 06/17/2015 SHADY MORELAND MD Z86.73 PRSNL HX OF TIA (TIA), 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EFICITS 06/18/2015 VASILE BECKWITH PA-C R07.89 OTHER CHEST PAIN 06/18/2015 VASILE BECKWITH PA-C Z79.891 PROTE[employer] (CURRENT) USE OF OPIATE ANALGESIC 06/18/2015 VASILE BECKWITH PA-C R07.89 OTHER CHEST PAIN 06/18/2015 VASILE BECKWITH PA-C Z79.891 CORRECTION (CURRENT) USE OF OPIATE ANALGESIC 06/23/2015 KEYA JENKINS DO Ot M94.0 06/23/2015 KEYA JENKINS DO Ot R07.89 06/23/2015 KEYA JENKINS DO Ot M94.0 06/23/2015 JENKINS , KEYA Queen Ot R07.89 06/27/2015 JARETT RUSH MD Other F17.210 NICOTINE DEPENDENCE, CIGARETTES, UNCOMPLICATED 06/27/2015 JARETT RUSH MD Other R06.00 DYSPNEA, UNSPECIFIED 06/27/2015 JARETT RUSH MD Other R07.89 OTHER CHEST PAIN 06/27/2015 JARETT RUSH MD F17.210 NICOTINE DEPENDENCE, CIGARETTES, UNCOMPLICATED 06/27/2015 JARETT RUSH MD R06.00 DYSPNEA, UNSPECIFIED 06/27/2015 JARETT RUSH MD R07.89 OTHER CHEST PAIN 06/29/2015 MERLY ROMERO, SHADY WRIGHT F11.20 OPIOID DEPENDENCE, UNCOMPLICATED 06/29/2015 MERLY ROMERO, SHADY WRIGHT I25.10 ATHSCL HEART DISEASE OF [place] CORONARY ARTERY W/O 06/29/2015 SHADY MORELAND MD R07.89 OTHER CHEST PAIN 06/29/2015 SHADY MORELAND MD Other F11.20 OPIOID DEPENDENCE, UNCOMPLICATED 06/29/2015 SHADY MORELAND MD Other I25.10 ATHSCL HEART DISEASE OF [place] CORONARY ARTERY W/O ANG PCTRS 06/29/2015 SHADY MORELAND MD Other R07.89 OTHER CHEST PAIN 07/01/2015 ADORE NUNEZ MD, Ot R07.89 OTHER CHEST PAIN 07/06/2015 ADORE NUNEZ MD, Ot R07.89 07/28/2015 ADORE NUNEZ MD, Ot M25.522 PAIN IN LEFT ELBOW 07/28/2015 ADORE NUNEZ MD, Ot Z87.828 PERSONAL HISTORY OF OTH (HEALED) PHYSICA 08/02/2015 ADORE NUNEZ MD, Ot M25.522 PAIN IN LEFT ELBOW 08/02/2015 ADORE NUNEZ MD, Ot Z87.828 PERSONAL HISTORY OF OTH (HEALED) PHYSICA 08/27/2015 VASILE BECKWITH PA-C Other M54.5 LOW BACK PAIN 08/28/2015 MANUELA WILBURN APRN Other S70.02XA CONTUSION OF LEFT HIP, INITIAL ENCOUNTER 08/28/2015 MANUELA WILBURN APRN Other W18.30XA FALL ON SAME LEVEL, UNSPECIFIED, INITIAL ENCOUNTER 08/28/2015 MANUELA WILBURN APRN Other Y92.[address] IN SINGLE-FAMILY (PRIVATE) HOUSE PLACE 08/30/2015 VASILE BECKWITH PA-C Other F32.9 MAJOR DEPRESSIVE DISORDER, SINGLE EPISODE, UNSPECIFIED 08/30/2015 VASILE BECKWITH PA-C Other M54.5 LOW BACK PAIN 08/30/2015 VASILE BECKWITH PA-C Other R45.851 SUICIDAL IDEATIONS 08/30/2015 VASILE BECKWITH PA-C Other Z79.899 OTHER [employer]OTE[employer] (CURRENT) DRUG THERAPY 09/27/2015 Ot F10.120 ALCOHOL ABUSE WITH INTOXICATION, UNCOMPL 09/27/2015 Ot G89.29 OTHER CHRONIC PAIN 09/27/2015 Ot Y90.6 BLOOD ALCOHOL LEVEL OF 120-199 MG/100 ML 09/29/2015 Ot F10.120 ALCOHOL ABUSE WITH INTOXICATION, UNCOMPL 09/29/2015 Ot G89.29 OTHER CHRONIC PAIN 09/29/2015 Ot Y90.6 BLOOD ALCOHOL LEVEL OF 120-199 MG/100 ML 10/02/2015 DANI MA MD Other M25.552 PAIN IN LEFT HIP 10/02/2015 DANI MA MD Other M79.652 PAIN IN LEFT THIGH 10/23/2015 MANUELA WILBURN APRN Other F10.129 ALCOHOL ABUSE WITH INTOXICATION, UNSPECIFIED 10/23/2015 MANUELA WILBURN APRN Other S19.9XXA UNSPECIFIED INJURY OF NECK, INITIAL ENCOUNTER 10/23/2015 MANUELA WILBURN APRN Other S79.911A UNSPECIFIED INJURY OF RIGHT HIP, INITIAL ENCOUNTER 10/23/2015 MANUELA WILBURN APRN Other W18.30XA FALL ON SAME LEVEL, UNSPECIFIED, INITIAL ENCOUNTER 10/23/2015 MANUELA WILBURN APRN Other Y90.8 BLOOD ALCOHOL LEVEL OF 240 MG/100 ML OR MORE 10/23/2015 MANUELA WILBURN APRN Other Y92.[address] IN SINGLE-FAMILY (PRIVATE) HOUSE PLACE 10/23/2015 MANUELA WILBURN APRN Other Z79.899 OTHER PROTE[employer] (CURRENT) DRUG THERAPY 10/26/2015 AWAIS OLMOS MD, Ot S70.02XA CONTUSION OF LEFT HIP, INITIAL ENCOUNTER 10/29/2015 AWAIS OLMOS MD, Ot S70.02XA CONTUSION OF LEFT HIP, INITIAL ENCOUNTER 11/04/2015 MACIE HERNÁNDEZ Shamika Z79.891 PROTE[employer] (CURRENT) USE OF OPIATE ANALGESIC 11/19/2015 JOEY GARCIA MD Other F10.180 ALCOHOL ABUSE WITH ALCOHOL-INDUCED ANXIETY DISORDER 11/19/2015 JOEY GARCIA MD Other F32.9 MAJOR DEPRESSIVE DISORDER, SINGLE EPISODE, UNSPECIFIED 11/19/2015 JOEY GARCIA MD Other I25.10 ATHSCL HEART DISEASE OF [place] CORONARY ARTERY W/O ANG PCTRS 11/19/2015 JOEY GARCIA MD Other S79.911A UNSPECIFIED INJURY OF RIGHT HIP, INITIAL ENCOUNTER 11/19/2015 JOEY GARCIA MD Other W17.89XA OTHER FALL FROM ONE LEVEL TO ANOTHER, INITIAL ENCOUNTER 11/19/2015 JEOY GARCIA MD Other Y90.6 BLOOD ALCOHOL LEVEL OF 120-199 MG/100 ML 11/19/2015 JOEY GARCIA MD Other Y92.[address] IN SINGLE-FAMILY (PRIVATE) HOUSE PLACE 11/19/2015 JOEY GARCIA MD Other Z96.641 PRESENCE OF RIGHT ARTIFICIAL HIP JOINT 11/23/2015 STEVEN CABRERA MD Other F10.20 ALCOHOL DEPENDENCE, UNCOMPLICATED 11/23/2015 STEVEN CABRERA MD Other F17.210 NICOTINE DEPENDENCE, CIGARETTES, UNCOMPLICATED 11/23/2015 STEVEN CABRERA MD Other 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, RECURRENT SEVERE W/O PSYCH FEATURES 11/23/2015 STEVEN CABRERA MD Other I10 ESSENTIAL (PRIMARY) HYPERTENSION 11/23/2015 STEVEN CABRERA MD Other I25.10 ATHSCL HEART DISEASE OF [place] CORONARY ARTERY W/O ANG PCTRS 11/23/2015 STEVEN CABRERA MD Other J44.9 CHRONIC OBSTRUCTIVE PULMONARY DISEASE, UNSPECIFIED 11/23/2015 STEVEN CABRERA MD Other J45.909 UNSPECIFIED ASTHMA, UNCOMPLICATED 11/23/2015 STEVEN CABRERA MD Other K21.9 GASTRO-ESOPHAGEAL REFLUX DISEASE WITHOUT ESOPHAGITIS 11/23/2015 DEBORAH ROMERO, STEVEN Castro Other R45.851 SUICIDAL IDEATIONS 11/23/2015 DEBORAH ROMERO, STEVEN Castro Other Z86.73 PRSNL HX OF TIA (TIA), 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EFICITS 12/21/2015 BALAJI FUNES MD Other J44.1 CHRONIC OBSTRUCTIVE PULMONARY DISEASE W (ACUTE) EXACERBATION 12/21/2015 BALAJI FUNES MD Other R07.9 CHEST PAIN, UNSPECIFIED 12/23/2015 VASILE BECKWITH PA-C Other R07.9 CHEST PAIN, UNSPECIFIED 12/25/2015 KULWANT GARCIA Other M54.9 DORSALGIA, UNSPECIFIED 12/25/2015 KULWANT GARCIA Other R07.89 OTHER CHEST PAIN 12/25/2015 KULWANT GARCIA Other Z79.899 OTHER CORRECTION (CURRENT) DRUG THERAPY 12/27/2015 FERDINAND AGUILA MITRA L DG I10 ESSENTIAL (PRIMARY) HYPERTENSION 12/27/2015 NEFACUNDOCH DO MITRA L DG R06.02 SHORTNESS OF BREATH 12/27/2015 NEFACUNDOCH DO MITRA L DG R07.9 CHEST PAIN, UNSPECIFIED 12/27/2015 NEDICH DO MITRA L Other I10 ESSENTIAL (PRIMARY) HYPERTENSION 12/27/2015 NEFACUNDOCH DO MITRA L Other R06.02 SHORTNESS OF BREATH 12/27/2015 NEELIANE AGUILA MITRA L Other R07.9 CHEST PAIN, UNSPECIFIED 01/06/2016 JOSE CARLSON PLAY LEADER-C Other E04.9 NONTOXIC GOITER, UNSPECIFIED 01/19/2016 NEELIANE AGUILA MITRA L DG F10.27 ALCOHOL DEPENDENCE WITH ALCOHOL-INDUCED PERSISTING 01/19/2016 NEDICH DO MITRA L DG N18.3 CHRONIC KIDNEY DISEASE, STAGE 3 (MODERATE) 01/19/2016 NEELIANE AGUILA MITRA L DG R31.9 HEMATURIA, UNSPECIFIED 01/19/2016 NEDICH DO MITRA L Other F10.27 ALCOHOL DEPENDENCE WITH ALCOHOL-INDUCED PERSISTING DEMENTIA 01/19/2016 NEDICH DO MITRA L Other N18.3 CHRONIC KIDNEY DISEASE, STAGE 3 (MODERATE) 01/19/2016 NEDICH DO, MITRA L Other R31.9 HEMATURIA, UNSPECIFIED 01/21/2016 WEI SMITH MD Other F10.120 ALCOHOL ABUSE WITH INTOXICATION, UNCOMPLICATED 01/21/2016 WEI SMITH MD Other S00.93XA CONTUSION OF UNSPECIFIED PART OF HEAD, INITIAL ENCOUNTER 01/21/2016 WEI SMITH MD Other W18.09XA STRIKING AGAINST OTH OBJECT W SUBSEQUENT FALL, INIT ENCNTR 01/21/2016 WEI SMITH MD Other Y92.[address] OF OCCURRENCE OF THE EXTERNAL CAUSE 01/21/2016 WEI SMITH MD Other Y99.9 UNSPECIFIED EXTERNAL CAUSE STATUS 01/21/2016 WEI SMITH MD Other Z79.899 OTHER CORRECTION (CURRENT) DRUG THERAPY 01/21/2016 WEI SMITH MD Other Z88.5 ALLERGY STATUS TO NARCOTIC AGENT STATUS 01/25/2016 DAVE JARVIS DO Other F10.120 ALCOHOL ABUSE WITH INTOXICATION, UNCOMPLICATED 01/25/2016 DAVE JARVIS DO Other R45.851 SUICIDAL IDEATIONS 01/25/2016 DAVE JARVIS DO Other Y90.9 PRESENCE OF ALCOHOL IN BLOOD, LEVEL NOT SPECIFIED 01/25/2016 DAVE JARVIS DO Other Z79.51 CORRECTION (CURRENT) USE OF INHALED STEROIDS 01/25/2016 DAVE JARVIS DO Other Z79.82 CORRECTION (CURRENT) USE OF ASPIRIN 02/04/2016 MITRA STREETER DO Other E72.20 DISORDER OF UREA CYCLE METABOLISM, UNSPECIFIED 02/19/2016 JARETT GIBSON MD Ot G89.29 OTHER CHRONIC PAIN 02/19/2016 JARETT GIBSON MD Ot M25.551 PAIN IN RIGHT HIP 02/19/2016 JARETT GIBSON MD Ot Z91.81 HISTORY OF FALLING 02/19/2016 Ot 305.1 TOBACCO USE DISORDER 02/19/2016 Ot 401.9 HYPERTENSION NOS 02/19/2016 Ot 496 CHR AIRWAY OBSTRUCT NEC 02/19/2016 Ot 786.50 CHEST PAIN NOS 02/19/2016 OSWALDO ROMERO, LIZBETH Queen Ot I67.82 CEREBRAL ISCHEMIA 02/19/2016 OSWALDO ROMERO, LIZBETH Queen Ot R41.2 RETROGRADE AMNESIA 02/19/2016 OSWALDO ROMERO, LIZBETH Queen Ot R41.3 OTHER AMNESIA 02/24/2016 PAIGE ROMERO, JARETT Trejo Ot G89.29 OTHER CHRONIC PAIN 02/24/2016 PAIGE ROMERO, JARETT Trejo Ot M25.551 PAIN IN RIGHT HIP 02/24/2016 PAIGE ROMERO, JARETT Trejo Ot Z91.81 HISTORY OF FALLING 02/29/2016 MACIE HERNÁNDEZ P Z79.891 CORRECTION (CURRENT) USE OF OPIATE ANALGESIC 03/23/2016 KARINA DO, CHRISTOPHER E Other M25.559 PAIN IN UNSPECIFIED HIP 03/23/2016 KARINA DO, CHRISTOPHER E Other M25.559 PAIN IN UNSPECIFIED HIP 03/30/2016 KARINA DO, CHRISTOPHER E Other M25.559 PAIN IN UNSPECIFIED HIP 03/31/2016 KARINA DO, CHRISTOPHER E Other M25.559 PAIN IN UNSPECIFIED HIP 03/31/2016 KARINA DO, CHRISTOPHER E Other M25.551 PAIN IN RIGHT HIP 03/31/2016 KARINA DO, CHRISTOPHER E Other M25.559 PAIN IN UNSPECIFIED HIP 03/31/2016 KARINA DO, CHRISTOPHER E Other Z96.641 PRESENCE OF RIGHT ARTIFICIAL HIP JOINT 04/04/2016 KARINA DO, CHRISTOPHER E Other M25.559 PAIN IN UNSPECIFIED HIP 04/04/2016 KARINA DO, CHRISTOPHER E Other M25.551 PAIN IN RIGHT HIP 04/07/2016 KARINA DO, CHRISTOPHER E Other M25.559 PAIN IN UNSPECIFIED HIP 04/07/2016 KARINA DO, CHRISTOPHER E Other M25.551 PAIN IN RIGHT HIP 04/07/2016 KARINA DO, CHRISTOPHER E Other M25.559 PAIN IN UNSPECIFIED HIP 04/07/2016 KARINA DO, CHRISTOPHER E Other M25.551 PAIN IN RIGHT HIP 04/25/2016 MACIE HERNÁNDEZ S P Z79.891 CORRECTION (CURRENT) USE OF OPIATE ANALGESIC 05/26/2016 MANUELA WILBURN APRN F10.129 ALCOHOL ABUSE WITH INTOXICATION, UNSPECIFIED 05/26/2016 MANUELA WILBURN APRN T50.902A POISONING BY UNSP DRUG/MEDS/BIOL SUBST, SELF-HARM, 05/26/2016 WILBURNMANUELA EVELINA Z79.899 OTHER PROTE[employer] (CURRENT) DRUG THERAPY 05/31/2016 MITZI BARAJAS MD Other F10.229 ALCOHOL DEPENDENCE WITH INTOXICATION, UNSPECIFIED 05/31/2016 MITZI BARAJAS MD F17.210 NICOTINE DEPENDENCE, CIGARETTES, UNCOMPLICATED 05/31/2016 MITZI BARAJAS MD Other 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, RECURRENT SEVERE W/O PSYCH FEATURES 05/31/2016 MITZI BARAJAS MD G89.4 CHRONIC PAIN SYNDROME 05/31/2016 MITZI BARAJAS MD H35.30 UNSPECIFIED MACULAR DEGENERATION 05/31/2016 MITZI BARAJAS MD I10 ESSENTIAL (PRIMARY) HYPERTENSION 05/31/2016 MITZI BARAJAS MD I25.10 ATHSCL HEART DISEASE OF [place] CORONARY ARTERY W/O ANG PCTRS 05/31/2016 MITZI BARAJAS MD I25.2 OLD MYOCARDIAL INFARCTION 05/31/2016 MITZI BARAJAS MD J45.909 UNSPECIFIED ASTHMA, UNCOMPLICATED 05/31/2016 MITZI BARAJAS MD M25.551 PAIN IN RIGHT HIP 05/31/2016 MITZI BARAJAS MD R05 COUGH 05/31/2016 MITZI BARAJAS MD R45.851 SUICIDAL IDEATIONS 05/31/2016 MITZI BARAJAS MD T50.992A POISONING BY OTH DRUG/MEDS/BIOL SUBST, SELF-HARM, INIT 05/31/2016 MITZI BARAJAS MD Z86.73 PRSNL HX OF TIA (TIA), 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EFICITS 05/31/2016 MITZI BARAJAS MD Z91.5 PERSONAL HISTORY OF SELF-HARM 05/31/2016 MITZI BARAJAS MD Other Z95.5 PRESENCE OF CORONARY ANGIOPLASTY IMPLANT AND GRAFT 05/31/2016 MITZI BARAJAS MD Z96.641 PRESENCE OF RIGHT ARTIFICIAL HIP JOINT 05/31/2016 TRENT SOLITARIO MD, MITZI Queen Other Z98.41 CATARACT EXTRACTION STATUS, RIGHT EYE 05/31/2016 TRENT SOLITARIO MD, MITZI Queen Other Z98.42 CATARACT EXTRACTION STATUS, LEFT EYE 06/14/2016 ROMAINE HARRIS MD Other F02.80 DEMENTIA IN OTH DISEASES CLASSD ELSWHR W/O BEHAVRL DISTURB 06/14/2016 ROMAINE HARRIS MD Other F32.9 MAJOR DEPRESSIVE DISORDER, SINGLE EPISODE, UNSPECIFIED 06/14/2016 ROMAINE HARRIS MD Other G30.9 ALZHEIMER'S DISEASE, UNSPECIFIED 06/14/2016 ROMAINE HARRIS MD Other I69.398 OTHER SEQUELAE OF CEREBRAL INFARCTION 06/14/2016 ROMAINE HARRIS MD Other M48.07 SPINAL STENOSIS, LUMBOSACRAL REGION 06/14/2016 ROMAINE HARRIS MD Other M51.37 OTHER INTERVERTEBRAL DISC DEGENERATION, LUMBOSACRAL REGION 06/14/2016 ROMAINE HARRIS MD Other R45.851 SUICIDAL IDEATIONS 06/25/2016 NOÉ SHELTON MD Other R07.89 OTHER CHEST PAIN 06/25/2016 NOÉ SHELTON MD Other R45.851 SUICIDAL IDEATIONS 06/25/2016 NOÉ SHELTON MD Other Z88.5 ALLERGY STATUS TO NARCOTIC AGENT STATUS 07/06/2016 RONY FRENCH MD D72.829 Elevated white blood cell count, unspecified 07/06/2016 RONY FRENCH MD E05.90 Thyrotoxicosis, unsp without thyrotoxic crisis or storm 07/06/2016 RONY FRENCH MD E78.5 Hyperlipidemia, unspecified 07/06/2016 RONY FRENCH MD E87.1 Hypo-osmolality and hyponatremia 07/06/2016 RONY FRENCH MD 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, recurrent, severe w psych symptoms 07/06/2016 RONY FRENCH MD I10 Essential (primary) hypertension 07/06/2016 RONY FRENCH MD K21.9 Gastro-esophageal reflux disease without esophagitis 07/06/2016 RONY FRENCH MD M25.551 Pain in right hip 07/06/2016 RONY FRENCH MD M54.5 Low back pain 07/06/2016 RONY FRENCH MD R00.1 Bradycardia, unspecified 07/06/2016 RONY FRENCH MD R45.851 Suicidal ideations 08/18/[address]RE[address]ER DO D75.1 SECONDARY POLYCYTHEMIA 08/18/2016 JOSE ALFREDOELIANE MITRA AGUILA DG E78.5 HYPERLIPIDEMIA, UNSPECIFIED 08/18/2016 JOSE ALFREDOELIANE MITRA AGUILA DG I10 ESSENTIAL (PRIMARY) HYPERTENSION 08/18/[address]ER DO DG J20.8 ACUTE BRONCHITIS DUE TO OTHER SPECIFIED ORGANISMS 08/18/2016 MITRA STREETER DO DG R07.0 PAIN IN THROAT 08/22/2016 [address]RA [address]RE[address]ER DO D75.1 SECONDARY POLYCYTHEMIA 08/22/2016 MITRA STREETER DO E78.5 HYPERLIPIDEMIA, UNSPECIFIED 08/22/[address] DO DG I10 ESSENTIAL (PRIMARY) HYPERTENSION 10/09/2016 SULY SOUZA MD Other J44.1 CHRONIC OBSTRUCTIVE PULMONARY DISEASE W (ACUTE) EXACERBATION 10/09/2016 SULY SOUZA MD Other R06.02 SHORTNESS OF BREATH 10/09/2016 SULY SOUZA MD Other R55 SYNCOPE AND COLLAPSE 10/18/2016 RASHMI REINA Other F10.10 ALCOHOL ABUSE, UNCOMPLICATED 10/18/2016 RASHMI REINA Other J44.1 CHRONIC OBSTRUCTIVE PULMONARY DISEASE W (ACUTE) EXACERBATION 10/18/2016 RASHMI REINA Other R07.9 CHEST PAIN, UNSPECIFIED 10/18/2016 RASHMI REINA Other Y90.6 BLOOD ALCOHOL LEVEL OF 120-199 MG/100 ML 10/18/2016 RASHMI REINA Other Z79.899 OTHER PROTECTION CHIEF [employer] (CURRENT) DRUG THERAPY 11/08/2016 SOPHIE DISLA APRN R07.9 CHEST PAIN, UNSPECIFIED 11/08/2016 SOPHIE IDSLA APRN R51 HEADACHE 11/08/2016 SOPHIE DISLA APRN Z79.899 OTHER CORRECTION (CURRENT) DRUG THERAPY 11/09/2016 DAVE JARVIS DO Other F11.20 OPIOID DEPENDENCE, UNCOMPLICATED 11/09/2016 DAVE JARVIS DO Other R45.851 SUICIDAL IDEATIONS 11/09/2016 DAVE JARVIS DO Other Z79.51 CORRECTION (CURRENT) USE OF INHALED STEROIDS 11/09/2016 DAVE JARVIS DO Other Z79.899 OTHER CORRECTION (CURRENT) DRUG THERAPY 11/22/2016 RONY FRENCH MD E78.5 Hyperlipidemia, unspecified 11/22/2016 RONY FRENCH MD F33.2 Major depressv disorder, recurrent severe w/o psych features 11/22/2016 RONY FRENCH MD I10 Essential (primary) hypertension 11/22/2016 RONY FRENCH MD I25.10 Athscl heart disease of [place] coronary artery w/o ang pctrs 11/22/2016 RONY FRENCH MD I69.398 Other sequelae of cerebral infarction 11/22/2016 RONY FRENCH MD K21.9 Gastro-esophageal reflux disease without esophagitis 11/22/2016 RONY FRENCH MD M25.559 Pain in unspecified hip 11/22/2016 RONY FRENCH MD M54.5 Low back pain 11/22/2016 RONY FRENCH MD R09.81 Nasal congestion 11/22/2016 RONY FRENCH MD R53.1 Weakness 11/22/2016 RONY FRENCH MD R73.9 Hyperglycemia, unspecified 12/14/2016 RONY FRENCH MD E78.5 Hyperlipidemia, unspecified 12/14/2016 RONY FRENCH MD F10.20 Alcohol dependence, uncomplicated 12/14/2016 RONY FRENCH MD F33.2 Major depressv disorder, recurrent severe w/o psych features 12/14/2016 RONY FRENCH MD H61.23 Impacted cerumen, bilateral 12/14/2016 RONY FRENCH MD I10 Essential (primary) hypertension 12/14/2016 RONY FRENCH MD I25.10 Athscl heart disease of [place] coronary artery w/o ang pctrs 12/14/2016 RONY FRENCH MD I69.398 Other sequelae of cerebral infarction 12/14/2016 RONY FRENCH MD K21.9 Gastro-esophageal reflux disease without esophagitis 12/14/2016 RONY FRENCH MD M25.559 Pain in unspecified hip 12/14/2016 RONY FRENCH MD M54.5 Low back pain 12/14/2016 RONY FRENCH MD R45.851 Suicidal ideations 12/14/2016 RONY FRENCH MD Z72.89 Other problems related to lifestyle 12/22/2016 SULY SOUZA MD N30.00 ACUTE CYSTITIS WITHOUT HEMATURIA 12/22/2016 SULY SOUZA MD R42 DIZZINESS AND GIDDINESS 12/22/2016 SULY SOUZA MD Z79.51 CORRECTION (CURRENT) USE OF INHALED STEROIDS 12/22/2016 SULY SOUZA MD Z86.73 PRSNL HX OF TIA (TIA), 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EFICITS 12/22/2016 SULY SOUZA MD Z88.5 ALLERGY STATUS TO NARCOTIC AGENT STATUS 01/03/2017 HANNAH OCONNELL E78.5 Hyperlipidemia, unspecified 01/03/2017 HANNAH OCONNELL F32.9 Major depressive disorder, single episode, unspecified 01/03/2017 HANNAH OCONNELL I10 Essential (primary) hypertension 01/03/2017 HANNAH OCONNELL I25.10 Atherosclerotic heart disease of [place] coronary artery without angina pectoris 01/03/2017 HANNAH OCONNELL J44.9 Chronic obstructive pulmonary disease, unspecified 01/03/2017 HANNAH OCONNELL K21.9 Gastro-esophageal reflux disease without esophagitis 01/03/2017 HANNAH OCONNELL K25.9 Gastric ulcer, unspecified as acute or chronic, without hemorrhage or perforation 01/03/2017 HANNAH OCONNELL M25.551 Pain in right hip 01/03/2017 HANNAH OCONNELL M54.2 Cervicalgia 01/03/2017 HANNAH OCONNELL M54.5 Low back pain 01/03/2017 HANNAH OCONNELL Z72.0 Tobacco use 01/03/2017 HANNAH OCONNELL Z86.73 Personal history of transient ischemic attack (TIA), and cerebral infarction without residual deficits 01/03/2017 HANNAH OCONNELL Z86.79 Personal history of other diseases of the circulatory system 01/03/2017 HANNAH OCONNELL Z87.19 Personal history of other diseases of the digestive system 02/01/2017 HANNAH OCONNELL G89.29 Other chronic pain 02/01/2017 HANNAH OCONNELL M25.551 Pain in right hip 02/01/2017 HANNAH OCONNELL M54.2 Cervicalgia 02/01/2017 HANNAH OCONNELL M54.5 Low back pain 02/05/2017 WEI SMITH MD I10 ESSENTIAL (PRIMARY) HYPERTENSION 02/05/2017 WEI SMITH MD R45.851 SUICIDAL IDEATIONS 02/05/2017 WEI SMITH MD Z79.1 [employer] (CURRENT) USE OF NON-STEROIDAL NON-INFLA 02/05/2017 WEI SMITH MD Z79.51 CORRECTION (CURRENT) USE OF INHALED STEROIDS 02/05/2017 WEI SMITH MD Z79.899 OTHER [employer] (CURRENT) DRUG THERAPY 02/13/2017 RONY FRENCH MD F17.210 Nicotine dependence, cigarettes, uncomplicated 02/13/2017 RONY FRENCH MD F33.2 Major depressv disorder, recurrent severe w/o psych features 02/13/2017 RONY FRENCH MD G89.29 Other chronic pain 02/13/2017 RONY FRENCH MD I10 Essential (primary) hypertension 08/02/2017 BryantKeven barraganb W 294.21 08/02/2017 Bryant, Johnny W 300.02 08/02/2017 Bryant, Johnny W 303.90 08/02/2017 BryantKeven barraganb W 305.1 TOBACCO USE DISORDER 08/02/2017 Keven Hurtadob W 338.2 CHRONIC PAIN 08/02/2017 Bryant, Johnny W 414.01 08/02/2017 BryantKveen barraganb W 427.31 ATRIAL FIBRILLATION 08/02/2017 BryantKeven barraganb W 438.22 08/02/2017 Keven Hurtadob W 491.20 08/02/2017 Bryant, Johnny W 530.81 ESOPHAGEAL REFLUX 08/02/2017 Bryant, Johnny W 600.20 08/02/2017 Bryant, Johnny W 724.5 BACKACHE, UNSPECIFIED 08/02/2017 Bryant, Johnny W F03.91 08/02/2017 Bryant, Johnny W F10.20 ALCOHOL DEPENDENCE, UNCOMPLICATED 08/02/2017 Bryant, Johnny A F33.3 08/02/2017 Bryant, Johnny W F41.1 08/02/2017 Bryant, Johnny W G89.29 OTHER CHRONIC PAIN 08/02/2017 BryantKeven barraganb W I25.10 ATHSCL HEART DISEASE OF [place] CORONARY ARTERY W/O ANG PCTRS 08/02/2017 BryantKeven barraganb W I48.91 UNSPECIFIED ATRIAL FIBRILLATION 08/02/2017 Bryant Johnny W 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 08/02/2017 Bryant, Johnny W J44.9 CHRONIC OBSTRUCTIVE PULMONARY DISEASE, UNSPECIFIED 08/02/2017 Bryatn, Johnny W K21.9 GASTRO-ESOPHAGEAL REFLUX DISEASE WITHOUT ESOPHAGITIS 08/02/2017 Bryant Johnny W M54.9 DORSALGIA, UNSPECIFIED 08/02/2017 Bryant, Johnny W N40.0 BENIGN PROSTATIC HYPERPLASIA WITHOUT LOWER URINRY TRACT SYMP 08/02/2017 BryantKeven barraganb W Z72.0 TOBACCO USE 01/17/2018 SATISH MIRELES APRN Ot K31.89 OTHER DISEASES OF STOMACH AND DUODENUM 01/17/2018 SATISH MIRELES APRN Ot K57.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/O PERFORATION OR AB 01/17/2018 SATISH MIRELES APRN Ot K59.00 CONSTIPATION, UNSPECIFIED 01/17/2018 SATISH MIRELES PLAY LEADER Ot K31.89 OTHER DISEASES OF STOMACH AND DUODENUM 01/17/2018 SATISH MIRELES APRN Ot K57.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/O PERFORATION OR AB 01/17/2018 SATISH MIRELES APRN Ot K59.00 CONSTIPATION, UNSPECIFIED Procedures Code Description Performed By Performed On 00.40 PROCEDURE ON SINGLE VESSEL Bret Powell MD 05/06/2014 00.45 INSERTION OF ONE VASCULAR STENT Bret Powell MD 05/06/2014 00.66 PERCUTANEOUS TRANSLUMINAL CORONARY ANGIOPLASTY [PT Bret Powell MD 36.07 INSRT OF DRUG-ELUTING CORON ARTERY STENTS(S) Bret Powell MD 2014 37.22 LEFT HEART CARDIAC CATH Bret Powell MD 05/06/2014 88.53 LT HEART ANGIOCARDIOGRAM Bret Powell MD 05/06/2014 88.56 CORONAR ARTERIOGR-2 CATH Bret Powell MD 05/06/2014 99.19 INJECT ANTICOAGULANT Bret Powell MD 05/06/2014 44.43 ENDOSCOPIC CONTROL OF GASTRIC OR DUODENAL BLEEDING 08/29/2014 93.89 REHABILITATION NEC 09/03/2014 24326 Office/outpatient visit; established patient, level 1 04/27/2015 55935 Office/outpatient visit; established patient, level 4 04/28/2015 54022 Office/outpatient visit; established patient, level 4 05/05/2015 30940 Office/outpatient visit; established patient, level 4 05/12/2015 25783 DRAWING AND HANDLING - VENOUS 01/03/2017 24356 NEW COMPREHENSIVE 01/03/2017 63483 EST EXPANDED PROBLEM FOCUSED 02/01/2017 Results Test Result Range URINALYSIS - 07/25/13 20:05 SPECIFIC GRAVITY 1.010 COLOR YELLOW YELLOW CLARITY CLEAR CLEAR GLUCOSE NEGATIVE mg/dl NEGATIVE BILI NEGATIVE NEGATIVE KETONE NEGATIVE NEGATIVE PH 7.0 5.0-7.5 PROTEIN NEGATIVE NEGATIVE UROBILI 0.2 mg/dl 0.2-1.0 NITRITE NEGATIVE NEGATIVE BLOOD NEGATIVE NEGATIVE LEUKOCYT NEGATIVE NEGATIVE WBC NONE NONE SEEN RBC NONE NONE SEEN BACTERIA TRACE /LPF NONE SEEN SQ EPI NONE /LPF NONE SEEN COMPREHENSIVE METABOL - 07/26/13 07:05 CREATININE 1.0 mg/dl 0.6-1.3 SODIUM 141 mmol/L 136-145 TOTAL BILIRUBIN 0.5 mg/dl 0.0-1.0 TOTAL PROTEIN 6.7 g/dl 6.4-8.2 ALBUMIN 3.3 g/dl 3.4-5.0 ALK. PHOSPHATASE 121 U/L 50-136 BUN 16 mg/dl 7-18 CALCIUM 9.4 mg/dl 8.5-10.1 CHLORIDE 103 mmol/L 98-107 CO2 30.8 mmol/L 21.0-32.0 GLUCOSE 83 mg/dl 70-110 POTASSIUM 4.1 mmol/L 3.5-5.1 AST 17 U/L 15-37 ALT 21 U/L 12-78 AGAP 11.3 6.0-16.0 BN/CR 16.0 6.0-20.0 HTSH - 07/26/13 07:05 HTSH 1.47 uiU/ml 0.34-4.82 CBC/ AUTO DIFF - 07/26/13 07:05 WHITE BLOOD COUNT 5.93 10 4.60-10.20 HEMATOCRIT 41.9 % 42.0-52.0 HEMOGLOBIN 14.6 g/dl 14.0-18.0 PLATELET COUNT 179 10 142-424 RBC 4.52 10 4.70-6.10 MCV 92.7 fl 80.0-100.0 MCH 32.3 pg 26.0-34.0 MCHC 34.8 g/dl 29.0-37.0 RDW 12.8 % 11.5-14.5 MPV 9.70 fl GRAN% 45.6 % 37.0-80.0 LYMPH% 40.80 % 10.00-50.00 MONO% 10.10 % 0.00-12.00 EOS% 3.20 % 0.00-7.00 BASO% 0.30 % 0.00-2.50 GRAN# 2.70 10 2.00-6.90 LYMPH# 2.42 10 0.60-3.40 MONO# 0.60 10 0.00-0.90 EOS# 0.19 10 0.00-0.50 BASO# 0.02 10 0.00-0.20 URINE DRUG TESTING PAIN MANAGE - 05/24/15 14:12 UDSPM Specimen sent to reference lab. Results to follow. URINE DRUG TESTING PAIN MANAGE - 11/04/15 13:16 UDSPM Specimen sent to reference lab. Results to follow. ORAL FLUID DRUG SCREEN - 02/29/16 14:55 ODSPM Specimen sent to reference lab. Results to follow. URINE DRUG TESTING PAIN MANAGE - 04/25/16 09:27 UDSPM Specimen sent to reference lab. Results to follow. CBC - 05/31/16 14:15 DIFFTYPE AUTOMATED NRG WBC # Bld Auto 7.1 4.5-10.5 RBC # Bld Auto 4.72 ng/mL{rbc} 4.60-6.20 Hgb Bld-mCnc 16.1 g/dL 13.0-19.0 Hct VFr Bld Auto 45.7 %{vol} 39.0-55.0 MCV RBC Auto 96.8 fL 80.0-97.0 MCH RBC Qn Auto 34.1 pg 27.0-31.0 MCHC RBC Auto-mCnc 35.2 g/dL 31.0-36.0 RDW RBC Auto-Rto 14.1 %{vol} 11.5-14.5 Platelet # Bld Auto 156 150-450 MPV Bld Auto 9.4 fL 8.0-11.0 Neutrophils NFr Bld Auto 66.8 %{vol} 55.0-75.0 Lymphocytes NFr Bld Auto 23.9 %{vol} 20.0-40.0 Monocytes NFr Bld Auto 7.6 %{vol} 0.0-9.0 Eosinophil NFr Bld Auto 1.4 %{vol} 0.0-4.0 Basophils NFr Bld Auto 0.3 %{vol} 0.0-1.0 Neutrophils # Bld Auto 4.7 2.5-7.8 Lymphocytes # Bld Auto 1.7 0.9-4.7 Monocytes # Bld Auto 0.5 0.0-0.7 Eosinophil # Bld Auto 0.1 0.0-0.3 Basophils # Bld Auto 0.0 0.0-0.1 COMPREHENSIVE METABOLIC PANEL - 05/31/16 14:15 SERUM OSMOLALITY 275 mosm/L 266-301 Sodium SerPl-sCnc 135 mmol/L 136-145 Potassium SerPl-sCnc 4.5 mmol/L 3.5-5.1 Chloride SerPl-sCnc 104 mmol/L 98-107 CO2 SerPl-sCnc 22.0 mmol/L 23.0-31.0 BUN SerPl-mCnc 27.0 mg/dL 8.4-25.7 Creat SerPl-mCnc 1.07 mg/dL 0.72-1.25 Glucose SerPl-mCnc 101 mg/dL 70-110 Calcium SerPl-mCnc 9.4 mg/dL 9.0-10.6 Prot SerPl-mCnc 6.5 g/dL 6.0-8.3 Albumin SerPl-mCnc 3.8 g/dL 3.4-4.8 AST SerPl-cCnc 24 U/L 5-34 ALT SerPl-cCnc 21 U/L 0-55 ALP SerPl-cCnc 63 U/L 40-150 Bilirub SerPl-mCnc 0.2 mg/dL 0.2-1.2 Anion Gap SerPl-sCnc 13.5 10-20 BUN/Creat SerPl-mRto 25.20 9.00-30.00 GFR/BSA.pred SerPl MDRD-ArVRat >=60 NRG B12/FOLATE PANEL - 05/31/16 14:15 Vit B12 Ser-mCnc 1117 pg/mL 200-1100 Folate SerPl-mCnc 18.6 ng/mL 7.0-31.4 TSH SerPl DL<=0.05 mIU/L-aCnc - 05/31/16 14:15 TSH SerPl DL<=0.05 mIU/L-aCnc 1.23 0.35-4.94 GABAPENTIN - 05/31/16 14:15 GABAPENTIN 4.2 2-20 URINALYSIS WITH MICROSCOPIC - 05/31/16 16:20 URINE CULTURE TO FOLLOW NRG Color Ur Auto YELLOWYELLOW YELLOW Appearance Ur CLEARCLEAR CLEAR Glucose Ur Ql Strip.auto NEGATIVENEGATIVE NEGATIVE Bilirub Ur Ql Strip NEGATIVENEGATIVE NEGATIVE Ketones Ur Ql Strip NEGATIVENEGATIVE NEGATIVE Sp Gr Ur Strip.auto 1.015 1.005-1.030 RBC Ur Ql Auto NEGATIVENEGATIVE NEGATIVE pH Ur Strip.auto 5.5 4.5-8.0 Prot Ur Strip-mCnc NEGATIVE NEGATIVE Urobilinogen Ur Strip.auto-mCnc 0.2 <1.0 Nitrite Ur Ql Strip NEGATIVENEGATIVE NEGATIVE Leukocyte esterase Ur Ql Strip TRACETRACE NEGATIVE WBC #/area UrnS HPF 0 0-3 RBC #/area UrnS HPF NONE SEEN 0-3 Bacteria #/area UrnS HPF 2+ NONE SEEN Mucous Threads UrnS Ql Micro NONE SEENNONE SEEN NONE SEEN Amorph Sed UrnS Ql Micro 3+3+ NONE SEEN Epi Cells #/area UrnS HPF 1+ 1+ Yeast UrnS Ql Micro NONE SEENNONE SEEN NONE SEEN Casts UrnS Ql Micro NONE SEENNONE SEEN NONE SEEN Crystals UrnS Ql Micro NONE SEENNONE SEEN NONE SEEN CK SerPl-cCnc - 06/01/16 15:50 CK SerPl-cCnc 46 U/L 30-199 Troponin I Bld-mCnc - 06/01/16 15:50 Troponin I Bld-mCnc 0.11 ng/mL 0-0.60 D-DIMER - 06/01/16 17:05 D-Dimer 0.51 mg/L 0.19-0.50 Troponin I Bld-mCnc - 06/02/16 06:20 Troponin I Bld-mCnc <0.03 ng/mL 0-0.60 HIV (S) - 06/02/16 06:20 HIV NONREACTIVE NONREACTIVE ESR Bld Qn Westrgrn - 06/02/16 06:20 ESR Bld Qn Westrgrn 3 0-20 URINALYSIS WITH MICROSCOPIC - 06/02/16 08:09 URINE CULTURE NOT INDICATED NRG Color Ur Auto YELLOWYELLOW YELLOW Appearance Ur CLEARCLEAR CLEAR Glucose Ur Ql Strip.auto NEGATIVENEGATIVE NEGATIVE Bilirub Ur Ql Strip NEGATIVENEGATIVE NEGATIVE Ketones Ur Ql Strip NEGATIVENEGATIVE NEGATIVE Sp Gr Ur Strip.auto 1.025 1.005-1.030 RBC Ur Ql Auto NEGATIVENEGATIVE NEGATIVE pH Ur Strip.auto 5.5 4.5-8.0 Prot Ur Strip-mCnc NEGATIVE NEGATIVE Urobilinogen Ur Strip.auto-mCnc 0.2 <1.0 Nitrite Ur Ql Strip NEGATIVENEGATIVE NEGATIVE Leukocyte esterase Ur Ql Strip NEGATIVENEGATIVE NEGATIVE WBC #/area UrnS HPF 0 0-3 RBC #/area UrnS HPF NONE SEEN 0-3 Bacteria #/area UrnS HPF TRACE NONE SEEN Mucous Threads UrnS Ql Micro NONE SEENNONE SEEN NONE SEEN Amorph Sed UrnS Ql Micro NONE SEENNONE SEEN NONE SEEN Epi Cells #/area UrnS HPF NONE SEEN 1+ Yeast UrnS Ql Micro NONE SEENNONE SEEN NONE SEEN Casts UrnS Ql Micro NONE SEENNONE SEEN NONE SEEN Crystals UrnS Ql Micro NONE SEENNONE SEEN NONE SEEN CHEM/HEM PROFILE-BEDSIDE - 10/05/16 11:01 POTASSIUM 4.3 mmol/L 3.5-5.3 METHOD Bedside ANION GAP 15 mmol/L 10-20 METHOD Bedside GLUCOSE 105 mg/dL 70-99 BLOOD UREA NITROGEN 30 mg/dL 7-20 CREATININE 1.1 mg/dL 0.7-1.3 HEMOGLOBIN 16.7 gm/dL 14.0-18.0 HEMATOCRIT 49.0 % 40.0-54.0 SODIUM 140 mmol/L 135-148 CHLORIDE 106 mmol/L 98-110 CARBON DIOXIDE 24 mmol/L 21-32 CALCIUM IONIZED 4.4 mg/dL 4.5-5.3 Ethanol - 07/26/17 10:59 Ethanol <10 mg/dL 20-80 MRSA Screen - 07/26/17 10:59 FINAL CULTURE RESULTS MRSA Negative Nasal Culture MEDIA PLATED Setup at 14:19 on 07/26/2017 Rapid Drug Screen + ETOH,Medical - 07/26/17 12:24 Amphetamine NEGATIVE NEGATIVE Barbiturates NEGATIVE NEGATIVE Benzodiazepines NEGATIVE NEGATIVE Cocaine NEGATIVE NEGATIVE Ethanol, Urine <10.00 mg/dL 20.00-80.00 Marijuana NEGATIVE NEGATIVE Methylenedioxymethamphetamine NEGATIVE NEGATIVE Opiates NEGATIVE NEGATIVE Oxycodone POSITIVE NEGATIVE Phencyclidine NEGATIVE NEGATIVE Propoxyphene NEGATIVE NEGATIVE Tricyclic Antidepressant NEGATIVE NEGATIVE Lipid Panel - 07/27/17 05:35 C/HDL 3.5 3.7-6.7 Cholesterol 139 mg/dL 100-240 HDL 40 mg/dL 30-85 LDL-Calculated 80 mg/dL 0-100 Trig 93 mg/dL 35-160 VLDL 19 mg/dL 0-42 Encounters ACCT No. Visit Date/Time Discharge Status Pt. Type Provider Facility Loc./Unit Complaint [id number] 08/03/2017 20:01:02 ACT Unknown [id number] 01/20/2015 19:31:00 01/20/2015 23:59:59 CLS [facility]readmit [facility] L.ER [id number] 05/06/2014 04:50:00 05/07/2014 17:00:00 DIS Inpatient Bret Powell MD [facility] W.4CE [id number] 02/14/2013 15:39:00 02/14/2013 18:02:00 DIS Emergency Ashley ROMERO, Maira [facility] W.EDS [id number] 02/13/2013 23:03:00 02/13/2013 23:50:00 [facility] [id number] 06/27/2015 18:41:00 06/27/2015 21:10:00 DIS ER VICTOR MANUEL ROMERO, JARETT ED [id number] 06/16/2015 20:04:00 Document Registration [id number] 08/07/2011 23:15:00 Document Registration [id number] 11/15/2014 19:21:00 11/15/2014 23:59:59 CLS [facility]readmit [facility] L.ER [id number] 05/12/2015 15:08:03 05/12/2015 15:57:43 DIS Outpatient Oswaldo ROMERO, [facility] [id number] 10/23/2015 20:05:00 10/23/2015 23:59:59 CLS [facility]readmit [facility] L.ER [id number] 06/18/2015 18:05:00 06/18/2015 23:59:59 CLS [facility]readmit [facility] L.ER [id number] 07/26/2017 10:45:00 08/02/2017 10:44:00 DIS Inpatient [facility] BOZENA [id number] 07/26/2017 11:06:07 Document Registration [id number] 05/19/2015 01:35:00 05/19/2015 23:59:59 CLS Preadmit [facility] ED [id number] 04/26/2016 13:15:00 04/26/2016 23:59:59 CLS Outpatient KARINA ALBA AGUILA E [facility] [id number] 07/28/2015 08:56:03 07/28/2015 08:56:03 Outpatient [id number] 07/28/2015 08:53:36 07/28/2015 08:53:36 Outpatient [id number] 07/28/2015 08:11:59 07/28/2015 08:12:00 Outpatient [id number] 11/13/2014 20:58:00 11/13/2014 23:59:59 CLS [facility] L.ER [id number] 06/10/2013 10:56:00 06/10/2013 12:34:00 DIS Emergency Gilbert ROMERO, Alvarez Castro [facility] on [place] FERM [id number] 05/28/2013 12:17:00 05/28/2013 23:59:59 CLS Outpatient Estevan Wilkinson MD [facility] on [place] FOP [id number] 05/27/2013 22:05:00 05/28/2013 00:20:00 DIS Emergency Reginaldo Oliveira DO [facility] on [place] FERM [id number] 04/30/2013 03:26:00 04/30/2013 04:17:00 DIS Emergency Mayito ROMERO, Falguni [facility] on [facility] [id number] 04/28/2013 11:51:00 04/28/2013 13:25:00 DIS Emergency Efrain ROMERO, Jay [facility] on [place] FERM [id number] 05/28/2013 12:28:00 Document Registration [id number] 06/18/2015 18:05:00 06/18/2015 23:59:59 CLS Preadmit L.ER [id number] 12/25/2015 19:53:00 12/25/2015 23:59:59 CLS [facility] L.ER [id number] 06/23/2013 18:31:00 06/23/2013 23:59:59 CLS Outpatient [id number] 05/30/2013 15:27:00 05/30/2013 23:59:59 CLS Outpatient [id number] 05/16/2013 13:57:00 05/16/2013 23:59:59 CLS Outpatient [id number] 05/14/2013 17:09:00 05/14/2013 23:59:59 CLS Outpatient [id number] 04/18/2013 14:40:00 04/18/2013 23:59:59 CLS Outpatient [id number] 06/29/2015 18:15:00 06/29/2015 20:01:00 DIS ER SHADY MORELAND MDER [id number] 06/18/2015 18:05:00 06/18/2015 22:05:00 DIS ER VASILE BECKWITH PA-CER [id number] 06/16/2015 20:35:00 06/17/2015 09:40:00 DIS ER [id number] 06/16/2015 20:04:00 Document Registration [id number] 06/16/2015 20:04:00 Document Registration [id number] 12/23/2015 19:39:00 12/23/2015 23:59:59 CLS [facility] L.ER [id number] 06/08/2017 23:00:00 06/08/2017 23:59:59 DIS Outpatient FALGUNI HAMILTON [facility] [id number] 03/13/2017 18:24:00 ACT V JAY VALDES [facility] unknown [id number] 10/02/2015 20:52:00 10/02/2015 20:52:00 CAN Emergency [facility] L.ER [id number] 03/07/2015 22:00:00 03/07/2015 23:59:59 CLS [facility] L.ER [id number] 08/29/2014 10:20:00 08/29/2014 23:59:59 CLS [facility] L.ER [id number] 06/27/2015 18:37:00 06/27/2015 23:59:59 CLS [facility]readmit [facility] ED [id number] 02/19/2016 12:04:00 02/19/2016 14:09:00 DIS Emergency PAIGE ROMERO, JARETT Trejo [facility] ED INJURY [id number] 10/26/2015 20:09:00 10/26/2015 22:19:00 DIS Emergency NICKOLAS ROMERO, AWAIS Zapata [facility] ED [id number] 07/28/2015 13:23:00 07/28/2015 15:32:00 DIS Emergency MAYRA ROMERO, [facility] ED [id number] 07/01/2015 11:53:00 07/01/2015 13:03:00 DIS Emergency MAYRA ROMERO, [facility] ED [id number] 06/16/2015 13:51:00 06/16/2015 15:09:00 DIS Emergency JENKINS DO, [facility] ED [id number] 05/19/2015 20:26:00 05/19/2015 22:25:00 DIS Emergency NICKOLAS ROMERO, [facility] ED [id number] 04/30/2015 12:02:00 04/30/2015 23:59:59 CLS Outpatient OSWALDO ROMERO, [facility] RAD RETROGRADE AMNESIA - R41.2 [id number] 04/26/2015 12:21:00 04/26/2015 13:25:00 DIS Emergency MAZIN ROMERO, [facility] ED [id number] 05/08/2014 21:13:00 05/08/2014 23:59:59 CLS Outpatient [facility] EMS ALS ASSIST FROM [place] [facility] [id number] 10/09/2013 22:42:00 10/09/2013 23:30:00 DIS Emergency DELANEY ROMERO, [facility] ED [id number] 09/01/2013 13:10:00 09/01/2013 14:26:00 [facility] [id number] 07/20/2013 18:25:00 07/20/2013 18:56:00 DIS Emergency JADEN ROMERO, [facility] ED [id number] 07/14/2013 20:33:00 07/14/2013 23:09:00 DIS Emergency [facility] ED [id number] 06/21/2013 21:25:00 06/21/2013 22:13:00 DIS Emergency NICKOLAS ROMERO, [facility] ED [id number] 04/28/2013 21:21:00 04/28/2013 22:23:00 DIS Emergency DELANEY ROMERO, [facility] ED [id number] 04/15/2013 15:15:00 04/15/2013 16:08:00 [facility] [id number] 04/03/2013 03:05:00 04/03/2013 03:56:00 DIS Emergency NICKOLAS ROMERO, [facility] ED [id number] 09/26/2015 21:24:00 Document Registration [id number] 06/11/2014 08:20:00 Document Registration [id number] 06/03/2014 15:28:00 Document Registration [id number] 09/20/2014 20:59:00 09/20/2014 23:59:59 CLS [facility]readmit [facility] L.ER [id number] 01/20/2015 19:15:00 01/20/2015 23:59:59 CLS Preadmit [facility] L.ER [id number] 08/03/2017 19:57:55 ACT Document Registration [id number] 12/21/2016 21:04:00 12/21/2016 23:59:59 CLS Preadmit [facility] ED [id number] 08/29/2015 21:21:00 08/29/2015 23:59:59 CLS [facility] L.ER [id number] 11/18/2015 22:14:00 11/18/2015 23:59:59 CLS [facility] L.ER [id number] 06/27/2015 18:37:00 06/27/2015 23:59:59 CLS Preadmit ED [id number] 01/16/2018 08:08:00 01/16/2018 23:59:59 CLS Outpatient SATISH MIRELES APRN [facility] RAD ABD PAIN [id number] 02/01/2017 10:50:00 02/01/2017 23:59:59 CLS Outpatient OCONNELL, [facility] [id number] 01/03/2017 10:30:00 01/03/2017 23:59:59 CLS Outpatient OCONNELLHANNAH SORENSEN [facility] [id number] 02/07/2017 20:21:00 Document Registration [id number] 02/02/2017 15:51:00 Document Registration [id number] 02/01/2017 19:41:00 Document Registration [id number] 23:14:00 Document Registration [id number] 10/05/2016 09:18:00 10/05/2016 13:10:00 DIS Emergency Candelario ROMERO, Yobani [facility] E.ED [id number] 02/05/2017 17:20:00 02/05/2017 20:10:00 DIS Outpatient LUIS ROMERO, [facility] 1SOU [id number] 12/21/2016 21:07:00 12/22/2016 01:11:00 DIS Emergency HARLEY ROMERO, [facility] ED [id number] 11/08/2016 20:46:00 11/09/2016 04:56:00 DIS Inpatient SIMONA DODAVE [facility] 1SOU [id number] 10/09/2016 12:29:00 10/09/2016 14:29:00 DIS Emergency HARLEY ROMERO, [facility] ED [id number] 06/24/2016 21:30:00 06/25/2016 08:35:00 DIS Inpatient NIKITA ROMERO, NOÉ Dugan [facility] 1S [id number] 05/26/2016 21:05:00 05/31/2016 13:23:00 DIS Inpatient TRENT SOLITARIO MD, MITZ[facility] 5SUR W [id number] 05/29/2016 14:39:00 05/29/2016 23:59:59 CLS Preadmit DEBORAH ROMERO, STEVEN Castro [id number] 04/07/2016 10:06:00 04/07/2016 23:59:00 DIS Outpatient KARINA DO [facility] LAB [id number] 04/07/2016 10:05:00 04/07/2016 23:59:00 DIS [facility] [id number] 03/31/2016 13:23:00 03/31/2016 23:59:00 DIS [facility] [id number] 01/24/2016 20:45:00 01/25/2016 01:56:00 [facility] [id number] 01/21/2016 18:39:00 01/21/2016 20:36:00 DIS Emergency LUIS ROMERO, [facility] ED [id number] 01/20/2016 10:00:00 01/20/2016 23:59:59 CLS Preadmit FERDINAND MITRA AGUILA [facility] NICL [id number] 12/21/2015 16:48:00 12/21/2015 22:04:00 DIS Emergency SHANTEL ROMERO, BALAJI Hamilton [facility] ED [id number] 11/19/2015 20:44:00 11/23/2015 16:45:00 DIS Inpatient DEBORAH ROMERO, STEVEN Castro [facility] [id number] 06/27/2015 18:41:00 06/27/2015 21:10:00 DIS Emergency VICTOR MANUEL ROMERO, JARETT [facility] ED [id number] 05/19/2015 01:37:00 05/19/2015 02:21:00 DIS Emergency NIKITA ROMERO, NOÉ Dugan [facility] ED [id number] 12/28/2014 12:04:00 12/28/2014 23:59:00 [facility] [id number] 12/28/2014 13:00:00 12/28/2014 13:00:00 CAN Preadmit MAGO AGUILA [facility] INFU TH [id number] 09/03/2014 12:43:00 09/08/2014 10:22:00 DIS Inpatient EDDA ROMERO, JASBIR Priest [facility] REHAB [id number] 08/29/2014 14:14:00 09/03/2014 12:18:00 DIS Inpatient RITA ROMERO, SABINA Ferro [facility] 4MED W [id number] 08/29/2014 11:56:00 Document Registration [id number] 07/09/2014 22:32:00 Document Registration [id number] 06/18/2014 09:38:00 Document Registration [id number] 06/11/2014 17:40:00 Document Registration [id number] 05/24/2014 13:19:00 Document Registration [id number] 05/05/2014 22:51:00 Document Registration [id number] 09/01/2013 18:08:00 Document Registration [id number] 07/21/2013 00:26:00 Document Registration [id number] 07/15/2013 14:40:00 Document Registration [id number] 06/19/2012 01:40:00 Document Registration [id number] 05/15/2012 13:52:00 Document Registration [id number] 03/29/2012 09:05:00 Document Registration [id number] 01/18/2012 23:16:00 Document Registration [id number] 12/20/2011 15:24:00 Document Registration [id number] 12/12/2011 00:47:00 Document Registration [id number] 09/02/2011 03:43:00 Document Registration [id number] 08/07/2011 23:15:00 Document Registration [id number] 08/07/2011 00:32:00 Document Registration [id number] 08/04/2011 03:31:00 Document Registration [id number] 04/28/2011 00:17:00 Document Registration [id number] 03/04/2011 02:21:00 Document Registration [id number] 12/08/2010 00:14:00 Document Registration [id number] 11/19/2010 01:03:00 Document Registration [id number] 09/27/2010 19:44:00 Document Registration [id number] 09/05/2010 21:53:00 Document Registration [id number] 08/27/2010 00:38:00 Document Registration [id number] 07/26/2010 21:56:00 Document Registration [id number] 07/17/2010 02:10:00 Document Registration [id number] 06/24/2010 00:46:00 Document Registration [id number] 04/27/2010 19:46:00 Document Registration [id number] 02/08/2010 15:04:00 Document Registration [id number] 02/07/2010 18:55:00 Document Registration [id number] 01/29/2010 19:51:00 Document Registration [id number] 01/11/2010 16:44:00 Document Registration [id number] 11/27/2009 14:35:00 Document Registration [id number] 10/20/2009 09:45:00 Document Registration [id number] 10/15/2009 17:15:00 Document Registration [id number] 09/12/2009 20:52:00 Document Registration [id number] 08/30/2009 19:09:00 Document Registration [id number] 08/22/2009 12:56:00 Document Registration [id number] 06/23/2009 17:08:00 Document Registration [id number] 01/22/2009 18:54:00 Document Registration [id number] 12/15/2008 16:50:00 Document Registration [id number] 09/14/2008 10:51:00 Document Registration [id number] 09/02/2008 21:06:00 Document Registration [id number] 08/28/2008 21:22:00 Document Registration [id number] 07/20/2008 10:04:00 Document Registration [id number] 07/11/2008 19:16:00 Document Registration [id number] 06/30/2008 19:32:00 Document Registration [id number] 06/13/2008 13:53:00 Document Registration [id number] 05/15/2008 20:46:00 Document Registration [id number] 05/12/2008 13:53:00 Document Registration [id number] 03/12/2008 19:30:00 Document Registration [id number] 02/16/2008 00:10:00 Document Registration [id number] 01/27/2008 15:56:00 Document Registration [id number] 01/01/2008 13:50:00 Document Registration [id number] 09/13/2007 17:59:00 Document Registration [id number] 06/30/2007 19:57:00 Document Registration [id number] 05/23/2015 19:57:00 05/23/2015 23:59:59 CLS [facility] [id number] 05/19/2014 11:22:05 05/19/2014 23:59:59 CLS Outpatient Shady Burrell [id number] 04/28/2014 14:41:12 04/28/2014 23:59:59 CLS Outpatient Shady Burrell [id number] 01/26/2014 14:31:13 01/26/2014 23:59:59 CLS Outpatient Shady Burrell [id number] 12/23/2013 14:08:54 12/23/2013 23:59:59 CLS Outpatient Mary Torres [id number] 10/24/2013 15:36:16 10/24/2013 23:59:59 CLS Outpatient Shady Burrell [id number] 01/07/2018 14:42:12 01/07/2018 23:59:59 CLS Outpatient PrudencioseraSatish [id number] 10/15/2017 08:38:26 10/15/2017 23:59:59 CLS Outpatient Marco Munoz [id number] 08/09/2017 14:31:36 08/09/2017 23:59:59 CLS Outpatient Marco Munoz [id number] 06/26/2017 10:37:35 06/26/2017 23:59:59 CLS Outpatient Marco Munoz [id number] 05/25/2017 16:53:38 05/25/2017 23:59:59 CLS Outpatient Marco Munoz [id number] 02/14/2017 10:22:43 02/14/2017 23:59:59 CLS Outpatient Marco Munoz [id number] 12/21/2015 16:42:00 12/21/2015 23:59:59 CLS [facility] ED [id number] 02/07/2017 11:45:00 02/13/2017 11:10:00 DIS Inpatient GILLIAN ROMERO [facility] [id number] 12/01/2016 03:20:00 12/14/2016 11:10:00 DIS Inpatient GILLIAN ROMERO [facility] [id number] 11/09/2016 07:50:00 11/22/2016 14:45:00 DIS Inpatient GILLIAN ROMERO [facility] [id number] 06/25/2016 11:55:00 07/06/2016 15:30:00 DIS Inpatient GILLIAN ROMERO [facility] [id number] 02/13/2015 22:05:00 02/13/2015 23:59:59 CLS [facility] [id number] 08/28/2015 21:00:00 08/28/2015 23:59:59 CLS [facility] L[facility]ER [id number] 05/31/2016 13:50:00 06/14/2016 12:30:00 DIS Inpatient ROMAINE HARRIS MD [facility] BOZENA [id number] 06/01/2016 15:10:00 06/03/2016 13:20:00 DIS Inpatient JANI ROMERO, CL M[facility] ICU [id number] 06/24/2016 20:10:00 06/24/2016 23:59:59 CLS [facility] ED [id number] 03/05/2015 23:03:00 03/05/2015 23:59:59 CLS Preadmit [facility] L.ER [id number] 07/26/2017 10:45:00 Document Registration [id number] 11/08/2016 17:33:00 11/08/2016 23:59:59 CLS Preadmit [facility] L.ER [id number] 01/21/2016 18:37:00 01/21/2016 23:59:59 CLS Preadmit [facility] ED [id number] 11/30/2016 18:55:00 12/01/2016 00:30:00 DIS Emergency VASILE BECKWITH PA-C [facility] L.ER [id number] 11/08/2016 17:33:00 11/08/2016 18:50:00 DIS Emergency SOPHIE DISLA APRN [facility] L.ER [id number] 11/07/2016 18:02:00 11/07/2016 18:02:00 CAN Preadmit CRISTIAN COCHRAN [facility] L.ER [id number] 10/17/2016 22:21:00 10/18/2016 00:14:00 DIS Emergency RASHMI REINA [facility] L.ER [id number] 08/22/2016 10:31:00 08/22/2016 23:59:00 DIS Outpatient MITRA STREETER DO [facility] L.NPLAB [id number] 08/18/2016 08:29:00 08/18/2016 23:59:00 DIS CLI [facility] L.LAB [id number] 08/18/2016 08:28:00 08/18/2016 08:28:00 [facility] L.KS [id number] 06/12/2016 07:00:00 06/12/2016 23:59:59 CLS Preadmit [facility] L.LAB [id number] 05/26/2016 19:40:00 05/26/2016 23:59:00 DIS ER MANUELA WILBURN [facility] L.ER [id number] 02/04/2016 08:22:00 02/04/2016 23:59:00 DIS Outpatient [facility] L. [id number] 01/19/2016 07:47:00 01/19/2016 23:59:00 DIS Outpatient [facility] L.LAB [id number] 01/06/2016 09:50:00 01/06/2016 23:59:00 DIS Outpatient JOSE CARLSON [facility] L. [id number] 12/27/2015 07:53:00 12/27/2015 23:59:00 DIS Outpatient [facility] L.LAB [id number] 12/25/2015 19:53:00 12/25/2015 21:35:00 DIS Emergency KULWANT GARCIA [facility] L.ER [id number] 12/23/2015 19:39:00 12/23/2015 22:10:00 DIS Emergency VASILE BECKWITH PA-C [facility] L.ER [id number] 11/18/2015 22:15:00 11/19/2015 17:02:00 DIS Emergency JOEY GARCIA MD [facility] L.ER [id number] 10/23/2015 20:12:00 10/23/2015 21:43:00 DIS Emergency MANUELA WILBURN [facility] L.ER [id number] 10/02/2015 20:52:00 10/02/2015 21:20:00 DIS Emergency FRANCESCA ROMERO, DANI [facility] L.ER [id number] 08/29/2015 21:22:00 08/30/2015 04:55:00 [facility] [id number] 08/28/2015 21:00:00 08/28/2015 21:50:00 DIS Emergency MANUELA WILBURN [facility] L.ER [id number] 08/27/2015 18:47:00 08/27/2015 20:40:00 DIS Emergency VASILE BECKWITHKosta [facility] L.ER [id number] 06/29/2015 18:15:00 06/29/2015 20:01:00 DIS Emergency MERLY ROMERO, [facility] L.ER [id number] 06/18/2015 18:05:00 06/18/2015 22:05:00 DIS [facility] [id number] 06/16/2015 20:35:00 06/17/2015 09:40:00 DIS Inpatient MERLY ROMERO, [facility] L[facility] [id number] 05/23/2015 19:57:00 05/23/2015 20:35:00 DIS Emergency REGINALDO THAYER [facility] L.ER [id number] 05/11/2015 21:48:00 05/11/2015 23:52:00 DIS Emergency OSWALDO ROMERO, LIZBETH [facility] L.ER [id number] 04/28/2015 08:05:00 04/28/2015 23:59:00 DIS Outpatient MERLY ROMERO, [facility] L.LAB [id number] 04/21/2015 09:41:00 04/21/2015 23:59:00 DIS Outpatient OSWALDO ROMERO, LIZBETH [facility] [id number] 04/19/2015 19:53:00 04/19/2015 20:40:00 DIS Emergency FRANCESCA ROMERO, DANI [facility] L. [id number] 03/07/2015 22:00:00 03/07/2015 23:25:00 DIS [facility] [id number] 03/05/2015 23:03:00 03/06/2015 00:21:00 DIS Emergency [facility]VASILE [facility]. [id number] 02/27/2015 17:47:00 02/27/2015 23:59:00 [id number] 02/13/2015 22:05:00 02/14/2015 00:42:00 DIS Emergency [facility] [id number] 02/03/2015 09:57:00 02/03/2015 23:59:00 DIS Outpatient MERLY ROMERO, SHADY [facility] [id number] 01/20/2015 19:33:00 01/20/2015 20:40:00 DIS Emergency [facility] [id number] 01/14/2015 12:00:00 01/14/2015 23:59:00 DIS Outpatient MAGO [facility] [id number] 12/31/2014 09:40:00 12/31/2014 23:59:00 DIS CLI.APC [facility] [id number] 12/23/2014 09:30:00 12/23/2014 09:30:00 CAN Preadmit [facility] [id number] 12/21/2014 10:26:00 12/21/2014 23:59:00 [facility] [id number] 12/11/2014 14:20:00 12/11/2014 23:59:00 DIS [facility] [id number] 11/26/2014 11:20:00 11/26/2014 12:20:00 DIS Outpatient MAGO [facility] L. [id number] 11/16/2014 10:53:00 11/16/2014 23:59:00 DIS Outpatient MAGO [facility] L. [id number] 11/15/2014 19:26:00 11/15/2014 20:56:00 [facility] [id number] 11/13/2014 20:58:00 11/13/2014 22:29:00 DIS Emergency SOPHIE DISLA [facility] L.ER [id number] 10/19/2014 10:42:00 10/19/2014 23:59:00 [facility] [id number] 10/16/2014 14:12:00 10/16/2014 23:59:00 [facility] [id number] 09/21/2014 10:31:00 09/21/2014 23:59:00 DIS CLI.APC [facility] L. [id number] 09/20/2014 21:10:00 09/20/2014 23:17:00 DIS Emergency VASILE BECKWITH PA-C [facility] L.ER [id number] 09/01/2014 13:30:00 09/01/2014 13:30:00 CAN Outpatient JACK ROMERO, JARETT [facility] L. [id number] 08/29/2014 10:20:00 08/29/2014 13:00:00 DIS [facility] [id number] 05/26/2016 20:36:00 Document Registration [id number] 05/26/2016 20:36:00 Document Registration [id number] 05/26/2016 20:36:00 Document Registration [id number] 05/26/2016 20:36:00 Document Registration [id number] 05/26/2016 20:36:00 Document Registration [id number] 05/26/2016 20:36:00 Document Registration [id number] 06/16/2015 20:04:00 Document Registration [id number] 08/10/2014 13:51:00 Document Registration [id number] 07/21/2014 15:52:00 Document Registration [id number] 07/03/2014 10:57:00 Document Registration [id number] 06/01/2014 13:00:00 Document Registration [id number] 12/25/2013 20:06:00 Document Registration [id number] 10/09/2013 23:52:00 Document Registration [id number] 08/20/2013 21:40:00 Document Registration [id number] 08/19/2013 18:45:00 Document Registration [id number] 07/20/2013 21:32:00 Document Registration [id number] 07/15/2013 21:25:00 Document Registration [id number] 06/23/2013 21:57:00 Document Registration [id number] 04/25/2016 09:27:00 04/25/2016 09:27:00 DIS Outpatient [facility] [id number] 02/29/2016 14:55:00 02/29/2016 14:55:00 [id number] 11/05/2015 14:42:00 11/05/2015 14:42:00 DIS Outpatient [facility] [id number] 05/24/2015 14:12:00 05/24/2015 14:12:00 DIS Outpatient [facility] [id number] 07/25/2013 12:44:00 08/01/2013 09:48:00 [facility]
[2018-02-04 15:00] VITALS: BP 139/79
[2018-02-04 15:26] VITALS: BP 145/84
[2018-02-04 15:30] VITALS: BP 145/84
--- NOTE | 2018-02-04 20:09 | OPERATIVE REPORT ---
DATE OF SERVICE: 02/04/2018 PREOPERATIVE DIAGNOSES: 1. Right upper quadrant pain. 2. Gastritis. POSTOPERATIVE DIAGNOSES: 1. Duodenal polyp, possible duodenitis. 2. Gastritis. 3. Hiatal hernia. 4. Esophageal plaques. PROCEDURE: 1. EGD with snare polypectomy. 2. EGD with biopsy. SURGEON: Munir Sheikh DO. SNUFF CONTAINER INSPECTOR: None. ANESTHESIA: IV sedation by the DURALUMIN MECHANIC. SPECIMEN: 1. Duodenal polyp x2. 2. Antral biopsy. 3. Esophageal biopsy. BLOOD LOSS: Scant. FLUIDS: Per anesthesia. POSTOPERATIVE CONDITION: Stable. INDICATION FOR PROCEDURE: The patient is a 73-year-old male who has been having some right upper quadrant pain and chronic gastritis and needed workup. FINDINGS: The patient had 2 duodenal polyps. A little bit of inflammation of the duodenum as well. He also had what looked like gastritis, hiatal hernia, may have had a little bit of creeping up of the GE junction, but otherwise looked okay and that he had some esophageal plaques that did not wash away that were biopsied. PROCEDURE NOTE: After informed consent was obtained, the patient was brought to the endoscopy suite, placed in the bed left lateral decubitus position. He was administered IV sedation by the DURALUMIN MECHANIC who then monitored his vitals the entire time, heart rate, blood pressure and pulse ox and the scope was inserted down the mouth through the esophagus and into the stomach, pushed into the duodenum and then saw what looked like a little bit of inflammation, backed up and saw 2 polyps, like to do a snare polypectomy to remove these. Able to perform snare polypectomies. These were then sent to pathology, backed up into the antrum, took a biopsy of the antrum, could have either some gastritis. Retroflexed the scope, saw small hiatal hernia and then pulled the scope back up into the GE junction. I saw some very minimal creeping up of the Z line and then continued up the esophagus, looked if there were some plaques, tried to wash these off. He did not wash off, so we did a biopsy of these and then pulled the scope out of the mouth. The patient tolerated the procedure and recovered in the endoscopy suite. Job ID: [id number] DocumentID: [id number] Dictated Date: 02/04/2018 15:04:22 [facility] Date: 02/04/2018 20:08:59 Dictated By: MUNIR SHEIKH DO [facility]
== END 2018-02-04 15:30 | disposition home or self-care (01) ==
LOC: ENDO 11:55
PROVIDERS: ATTEND Surgery
DX: K31.7 Polyp of stomach and duodenum (principal); K29.70 Gastritis, unspecified, without bleeding; K44.9 Diaphragmatic hernia without obstruction or gangrene; K20.9 Esophagitis, unspecified; I10 Essential (primary) hypertension; E78.5 Hyperlipidemia, unspecified; F17.200 Nicotine dependence, unspecified, uncomplicated; J44.9 Chronic obstructive pulmonary disease, unspecified; G62.9 Polyneuropathy, unspecified; F32.9 Major depressive disorder, single episode, unspecified; K21.9 Gastro-esophageal reflux disease without esophagitis; I69.354 Hemiplegia and hemiparesis following cerebral infarction affecting left non-dominant side; Z79.899 Other long term (current) drug therapy
CPT/HCPCS: 88305

== ENCOUNTER 2018-02-18 05:50 | Outpatient (CLI) | payer MEDICARE, MEDICAID ==
[~2018-02-18] VITALS: Ht 188 cm; Wt 79.8 kg
== END 2018-02-18 13:00 | disposition home or self-care (01) ==
LOC: PREOP 05:50
PROVIDERS: ATTEND Surgery
DX: Z01.818 Encounter for other preprocedural examination (principal)

== ENCOUNTER 2018-02-22 11:54 | Day surgery (SDC) | payer MEDICARE, MEDICAID ==
[~2018-02-22] VITALS: Ht 188 cm; Wt 79.8 kg
[2018-02-22 12:00] VITALS: BP 133/88
[2018-02-22] MEDS ORDERED: LACTATED RINGERS 1,000 ML IV STA (12:07)
[2018-02-22] MEDS ORDERED: LACTATED RINGERS 1,000 ML IV ONE (12:09)
[2018-02-22] MEDS ORDERED: FAMOTIDINE 20MG/2ML IV (PEPCID) ONE (12:37)
[2018-02-22] MEDS ORDERED: MEPERIDINE (DEMEROL) INJ 100 MG/ML ONE (12:43)
[2018-02-22] MEDS ORDERED: PROPOFOL INJECTION 50 ML IV ONE ×2 (12:58→14:15)
[2018-02-22] MEDS ORDERED: MIDAZOLAM 2 MG/2 ML (VERSED) VIAL ONE (12:58)
--- NOTE | 2018-02-22 13:04 | Progress Note-Pre Operative ---
Pre-Operative Progress Note H&P Reviewed The H&P was reviewed, patient examined and no changes noted. Time Seen by Provider: 13:00 Date H&P Reviewed: Feb 22, 2018 Time H&P Reviewed: 13:01 Pre-Operative Diagnosis: Abdominal pain TAISHA CINTRON DO Feb 22, 2018 13:04
--- OUTSIDE RECORDS SUMMARY | 2018-02-22 13:44 | XMS REPORT | Continuity of Care Document ---
Author Author [facility] Organization [facility] Address Unknown Phone Unavailable Allergies Active Description Code Type Severity Reaction Onset Reported/Identified Relationship to Patient Clinical Status Yes fentaNYL Drug N/A N/A Yes Medrol Dosepak Drug N/A N/A Yes NSAIDs 385 Drug N/A N/A Yes Reglan Drug N/A N/ A Yes Toradol Drug N/A N /A Yes COMPAZINE 475155 Fatal Other (Fatal) Yes FENTANYL 4337 Moderate Hives (Moderate) Yes NSAIDS (NON-STEROIDAL ANTI-INFLAMMATORY DRUG) Severe Other (Severe) Yes REGLAN 9230 N/A N/ A Yes Metoclopramide HCl [id number] Drug Allergy Moderate N/A Yes Morphine Sulfate [id number] Drug Allergy Moderate hives Yes NSAIDs [id number] Drug Allergy Moderate N/A Yes Prochlorperazine [id number] Drug Allergy Moderate N/A Yes FENTANYL UNKNOWN [...] Unknown BLEEDING STOMAC 06/03/2014 Yes METOCLOPRAMIDE HCL [id number] Drug Allergy Moderate N/A 07/10/2014 Yes NSAIDS (NON-STEROIDAL ANTI-INFLAMMA [id number] Drug Allergy Moderate N/A Yes PROCHLORPERAZINE [id number] Drug Allergy Mild N/A 07/10/2014 Yes KETOROLAC TROMETHAMINE [id number] Drug Allergy N/A N/A 07/10/2014 Yes METOCLOPRAMIDE HCL [id number] Drug Allergy Moderate N/A 07/10/2014 Yes NSAIDS (NON-STEROIDAL ANTI-INFLAMMA [id number] Drug Allergy Moderate N/A Yes PROCHLORPERAZINE [id number] Drug Allergy Mild N/A 07/10/2014 Yes KETOROLAC TROMETHAMINE [id number] Drug Allergy N/A N/A 07/10/2014 Yes KETOROLAC TROMETHAMINE [id number] Drug Allergy N/A N/A 07/10/2014 Yes METOCLOPRAMIDE HCL [id number] Drug Allergy Moderate N/A 07/10/2014 Yes NSAIDS (NON-STEROIDAL ANTI-INFLAMMA [id number] Drug Allergy Moderate N/A Yes PROCHLORPERAZINE [id number] Drug Allergy Mild N/A 07/10/2014 Yes KETOROLAC TROMETHAMINE [id number] Drug Allergy N/A N/A 07/10/2014 Yes METOCLOPRAMIDE HCL [id number] Drug Allergy Moderate N/A 07/10/2014 Yes NSAIDS (NON-STEROIDAL ANTI-INFLAMMA [id number] Drug Allergy Moderate N/A Yes PROCHLORPERAZINE [id number] Drug Allergy Mild N/A 07/10/2014 Yes METOCLOPRAMIDE HCL [id number] Drug Allergy Moderate N/A 07/10/2014 Yes NSAIDS (NON-STEROIDAL ANTI-INFLAMMA [id number] Drug Allergy Moderate N/A Yes MORPHINE [id number] Drug Allergy Mild N/A 07/10/2014 Yes PROCHLORPERAZINE [id number] Drug Allergy Mild N/A 07/10/2014 Yes KETOROLAC TROMETHAMINE [id number] Drug Allergy N/A N/A 07/10/2014 Yes MORPHINE [id number] Drug Allergy Severe HIVES 06/16/2015 Yes MORPHINE [id number] Drug Allergy Severe HIVES 06/16/2015 Yes MORPHINE [id number] Drug Allergy Severe HIVES 06/16/2015 Yes MORPHINE [id number] Drug Allergy Severe HIVES 06/16/2015 Yes MORPHINE [id number] Drug Allergy Severe HIVES 06/16/2015 Yes prochlorperazine maleate [id number] Drug Allergy Severe N/A 07/01/2015 Yes metoclopramide HCl [id number] Drug Allergy Severe N/A 09/27/2015 Yes morphine [id number] Drug Allergy Severe N/A 09/27/2015 Yes prochlorperazine edisylate [id number] Drug Allergy Severe N/A 2015 Yes cefazolin [id number] Drug Allergy Unknown N/A 10/26/2015 Yes ketorolac [id number] Drug Allergy N/A N/A 05/31/2016 Yes metoclopramide [id number] Drug Allergy N/A N/A 05/31/2016 Yes morphine [id number] Drug Allergy N/A N/A 05/31/2016 Yes prochlorperazine [id number] Drug Allergy N/A N/A 05/31/2016 Yes aspirin aspirin Drug Allergy Unknown NONE 10/05/2016 Yes metoclopramide HCl metoclopramide HCl Drug Allergy Unknown NONE 2016 Yes morphine morphine Drug Allergy Unknown NONE 10/05/2016 Yes NSAIDS (Non-Steroidal Anti-Inflamma NSAIDS (Non- Steroidal Anti-Inflamma Drug Allergy Unknown NONE 10/05/2016 Yes prochlorperazine edisylate prochlorperazine edisylate Drug Allergy Unknown NONE 10/05/2016 Yes fentanyl [id number] Drug Allergy Unknown N/A 02/04/2018 Yes ketorolac [id number] Drug Allergy Unknown N/A 02/04/2018 Yes metoclopramide [id number] Drug Allergy Unknown N/A 02/04/2018 Yes morphine [id number] Drug Allergy Unknown N/A 02/04/2018 Yes NSAIDS (Non-Steroidal Anti-Inflamma [id number] Drug Allergy Unknown N/A Medications Medication Packaging Start Date Stop Date [...] VALSARTAN TAB 80 MG (DIOVAN) MG 08/25/2017 BID&0800,2000 SIMVASTATIN TAB 10 MG (ZOCOR) MG 08/24/2017 QPM&2000 BUDESONIDE/FORMOTEROL INH 160 /4.5MCG (SYMBICORT) PUFF 07/26/2017 08/25/2017 BID&0800,2000 LACTULOSE SYRUP LIQ 20 GM/30CC (CHRONULAC SYRUP) GM 07/26/2017 08/25/2017 BID&0800,2000 MILK OF MAGNESIA LIQ ml 07/26/2017 08/25/2017 [...] 07/27/2017 08/25/2017 Daily&0900 MultiVits (Thera M Plus) (xhhjcfur-tfgv-kkjdgak) oral tablet TAB 07/27/2017 08/25/2017 Daily&0900 SALINE NASAL MIST LIQ (OCEAN SPRAY) Dose(s) 07/27/2017 08/06/2017 PRN QAM THIAMINE TAB 100 MG (VITAMIN B1) MG 07/27/2017 08/02/2017 Daily&0900 BISACODYL SUPPOS 10 MG (DULCOLAX SUPPOS) MG 07/27/2017 08/26/2017 PRN Daily CYANOCOBALAMIN TAB 1000 MCG (VIT B 12) MCG 07/27/2017 08/02/2017 Daily&0900 NICOTINE PATCH PAT 21 MG (NICODERM) MG 07/27/2017 08/25/2017 Daily&0900 Qrdvkfji-vznh-jne-folic acid) tab,CHEWable (Centrum) TAB 07/27/2017 08/25/2017 Daily&0900 [...] 08/01/2017 08/07/2017 Daily&0900 MultiVits (Thera M Plus) (ubycvstt-rwzg-hiuwrwe) oral tablet TAB 08/01/2017 08/30/2017 Daily&0900 THIAMINE [...] NOS 06/23/2009 Other E884.9 FALL-1 LEVEL TO OTH NEC 06/23/2009 Other V58.63 LONG-TERM (CURRENT)USE OF [...] CONTUSION OF HIP 01/19/2012 Other 959.8 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/SITE NEC 01/19/2012 Other E849.0 ACCIDENT IN HOME 01/19/2012 Other E885.9 FALL FROM SLIPPING, TRIPPING, OR STUMBLING NEC 03/29/2012 Other 496 CHR AIRWAY OBSTRUCT NEC 05/15/2012 Other 401.9 HYPERTENSION NOS 05/15/2012 Other 496 CHR AIRWAY OBSTRUCT NEC 05/15/2012 Other V76.44 SCREEN MAL NEOP-PROSTATE 06/19/2012 Other 338.11 ACUTE PAIN DUE TO TRAUMA 06/19/2012 Other 924.01 CONTUSION OF HIP 06/19/2012 Other 959.8 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/SITE NEC 06/19/2012 Other E849.0 ACCIDENT IN HOME 06/19/2012 Other E888.9 FALL NOS 06/19/2012 Other V58.63 LONG-TERM (CURRENT)USE OF ANTIPLATELET/ANTITHROMBOTIC 04/03/2013 NICKOLAS ROMERO, AWAIS R Ot 724.2 LUMBAGO 04/15/2013 DENEENCARROLL SEYMOUR DO A Ot 338.4 CHRONIC PAIN SYNDROME 04/15/2013 CARROLL BROTHERS DO A Ot 724.2 LUMBAGO 04/28/2013 Jay Zuniga MD Final 305.1 TOBACCO USE DISORDER 04/28/2013 Jay Zuniga MD Final 338.29 CHRONIC PAIN NEC 04/28/2013 Jay Zuniga MD Final 530.81 ESOPHAGEAL REFLUX 04/28/2013 Jay Zuniga MD Final 724.2 LUMBAGO 04/28/2013 DELANEY ROMERO, LUZ Wick Ot 724.2 LUMBAGO 04/30/2013 Mayito ROMERO, Falguni Final 338.29 CHRONIC PAIN NEC 04/30/2013 Mayito ROMERO, Falguni Final 401.9 HYPERTENSION NOS 04/30/2013 Mayito ROMERO, Falguni Final 438.89 OTH LATE EFFECT CVD 04/30/2013 Mayito ROMERO, Falguni Final 724.2 LUMBAGO 04/30/2013 Mayito ROMERO, Falguni Final 780.79 MALAISE FATIGUE NEC 05/27/2013 Reginaldo [...] Alvarez Hunt MD Final 724.2 LUMBAGO 06/21/2013 NICKOLAS ROMERO, AWAIS R Ot 724.2 LUMBAGO 06/23/2013 Other 724.2 LUMBAGO 07/14/2013 CARROLL BROTHERS DO A Ot 338.29 OTHER CHRONIC PAIN 07/14/2013 CARROLL BROTHERS DO Ot 719.41 JOINT PAIN-SHLDER 07/14/2013 CARROLL BROTHERS DO A Ot 724.2 LUMBAGO 07/14/2013 CARROLL BROTHERS DO Ot 923.00 CONTUSION SHOULDER REG 07/14/2013 CARROLL BROTHERS DO Ot 924.01 CONTUSION OF HIP 07/14/2013 CARROLL BROTHERS DO A Ot E849.0 ACCIDENT IN HOME 07/14/2013 CARROLL BROTHERS DO A Ot E888.9 FALL NOS 07/15/2013 Other 959.09 INJURY OF FACE AND NECK 07/15/2013 Other 959.6 HIP THIGH INJURY NOS 07/15/2013 Other E849.0 ACCIDENT IN HOME 07/15/2013 Other E885.9 FALL FROM SLIPPING, TRIPPING, OR STUMBLING NEC 07/15/2013 Other 307.9 SPECIAL SYMPTOM NEC/NOS 07/15/2013 Other 846.9 SPRAIN SACROILIAC NOS 07/15/2013 Other E849.0 ACCIDENT IN HOME 07/15/2013 Other E888.8 FALL NEC 07/20/2013 CHRISTOPHER STANLEY MD Ot 881.00 OPEN WOUND OF FOREARM 07/20/2013 CHRISTOPHER STANLEY MD Ot E000.9 UNSPECIFIED EXTERNAL CAUSE STATUS 07/20/2013 CHRISTOPHER STANLEY MD Ot E029.9 OTHER ACTIVITY 07/20/2013 CHRISTOPHER STANLEY MD Ot E849.0 ACCIDENT IN HOME 07/20/2013 RUNDELL-LITTLE MD, CHRISTOPHER W Ot E920.8 ACC-CUTTING INSTRUM NEC 07/20/2013 Other [...] NOS 07/25/2013 Other 414.01 CORONARY ATHEROSCLEROSIS OF [place] CORONARY VESSEL 07/25/2013 Other 427.61 ATRIAL PREMATURE [...] LESS THAN 19, ADULT 08/01/2013 FALGUNI LING 17789 RECUR DEPR PSYCH-SEVERE 08/13/2013 Other 311 DEPRESSIVE DISORDER NEC 08/13/2013 Other 401.1 BENIGN HYPERTENSION 08/13/2013 Other 496 CHR AIRWAY OBSTRUCT NEC 08/13/2013 Other 530.81 ESOPHAGEAL REFLUX 08/19/2013 Other 719.45 JOINT PAIN-PELVIS 08/19/2013 Other 724.2 LUMBAGO 08/20/2013 Other 724.2 LUMBAGO 08/21/2013 Other 309.0 ADJUSTMENT DISORDER WITH DEPRESSED MOOD 08/21/2013 Other 724.2 LUMBAGO 09/01/2013 CARROLL BROTHERS DO Ot 724.2 LUMBAGO 09/01/2013 CARROLL BROTHERS DO Ot 846.0 SPRAIN LUMBOSACRAL 09/01/2013 CARROLL BROTHERS DO Ot E849.0 ACCIDENT IN HOME 09/01/2013 CARROLL BROTHERS DO Ot E888.9 FALL NOS 09/01/2013 Other 511.0 PLEURISY W /O EFFUS OR TB 09/01/2013 Other 785.0 TACHYCARDIA NOS 09/01/2013 Other 786.50 CHEST PAIN NOS 09/01/2013 Other 786.59 CHEST PAIN NEC 09/01/2013 Other V58.63 LONG-TERM (CURRENT)USE OF ANTIPLATELET/ANTITHROMBOTIC 09/01/2013 Other V58.65 LONG-TERM (CURRENT)USE OF STEROIDS 09/25/2013 Other 311 DEPRESSIVE DISORDER NEC 09/25/2013 Other 496 CHR AIRWAY OBSTRUCT NEC 09/25/2013 Other 786.52 PAINFUL RESPIRATION 10/09/2013 LUZ BALTAZAR MD P Ot 521.00 UNSPEC DENTAL CARIES 10/09/2013 LUZ BALTAZAR MD P Ot 525.9 DENTAL DISORDER NOS 10/09/2013 LUZ BALTAZAR MD P Ot 784.92 JAW PAIN 10/10/2013 Other [...] 05/06/2014 Other 786.50 CHEST PAIN NOS 05/06/2014 Andre ROMERO, Bret Betancourt F 305.1 TOBACCO USE DISORDER 05/06/2014 Andre ROMERO, Bret Betancourt F 401.9 HYPERTENSION NOS 05/06/2014 Andre ROMERO, Bret Betancourt F 410.71 AC MYOCARDIAL INFARCT,SUBENDO INFARCT,INITIAL EPIS 05/06/2014 Bret Powell MD F 427.31 ATRIAL FIBRILLATION 05/06/2014 Andre ROMERO, Bret Betancourt F 496 CHR AIRWAY OBSTRUCT NEC 05/06/2014 Bret Powell MD F 530.81 ESOPHAGEAL REFLUX 05/06/2014 Bret Powell MD A 786.50 05/06/2014 Bret Powell MD F V06.6 PROPHYLACTIC VACC AGNST STREPTOCOCCUS PNEUM INFL 05/06/2014 Bret Powell MD F V12.54 PERSONAL HX OF TIA, CEREBRAL INFARCTION [...] NEC/NOS 07/21/2014 Other 414.01 CORONARY ATHEROSCLEROSIS OF [place] CORONARY VESSEL 07/21/2014 Other 496 CHR AIRWAY [...] Other 414.00 CORON ATHEROSCLER NOS TYPE VESSEL, [place] OR GRAFT 08/06/2014 Other 427.31 ATRIAL FIBRILLATION [...] Other 959.6 HIP THIGH INJURY NOS 08/29/2014 AKILAMANUELA EVELINA Other E849.0 ACCIDENT IN HOME 08/29/2014 AKILAMANUELA EVELINA Other E888.8 FALL NEC 09/03/2014 SABINA SALINAS MD 272.4 HYPERLIPIDEMIA NEC/NOS 09/03/2014 SABINA SALINAS MD 285.1 AC POSTHEMORRHAG ANEMIA 09/03/2014 SABINA SALINAS MD 300.00 ANXIETY STATE NOS 09/03/2014 SABINA SALINAS MD 305.1 TOBACCO USE DISORDER 09/03/2014 SABINA SALINAS MD 311 DEPRESSIVE DISORDER NEC 09/03/2014 SABINA SALINAS MD 338.29 OTHER CHRONIC PAIN 09/03/2014 SABINA SALINAS MD 401.9 HYPERTENSION NOS 09/03/2014 SABINA SALINAS MD 414.01 CORONARY ATHEROSCLEROSIS OF [place] CORONARY VESSEL 09/03/2014 SABINA SALINAS MD 427.31 [...] MD 790.92 COAGULATION PROFILE, ABNORMAL 09/03/2014 SABINA SALINAS MD E934.2 ADV EFF ANTICOAGULANTS 09/03/2014 SABINA SALINAS MD V11.3 HX OF ALCOHOLISM 09/03/2014 SABINA SALINAS MD V12.51 HX-VENOUS THROMBOSIS EMBOLISM 09/03/2014 SABINA SALINAS MD V12.71 PERSONAL HISTORY OF PEPTIC ULCER DISEASE 09/03/2014 SABINA SALINAS MD V14.8 HX-DRUG ALLERGY NEC 09/03/2014 SABINA SALINAS MD V45.79 ACQRD ABSENCE OF OTH ORGAN 09/03/2014 SABIAN SALINAS MD V58.61 ANTICOAGULANTS,LT,CURRENT USE 09/03/2014 SABINA SALINAS MD V58.63 LONG-TERM(CURRENT)USE OF ANTIPLATELET/ANTITHROMBOTIC 09/04/2014 JASBIR BAÑUELOS MD 272.4 HYPERLIPIDEMIA NEC/NOS 09/04/2014 JASBIR BAÑUELOS MD 280.0 CHR BLOOD LOSS ANEMIA 09/04/2014 JASBIR BAÑUELOS MD 300.00 ANXIETY STATE NOS 09/04/2014 JASBIR BAÑUELOS MD 311 DEPRESSIVE DISORDER NEC 09/04/2014 JASBIR BAÑUELOS MD 338.29 OTHER CHRONIC PAIN 09/04/2014 JASBIR BAÑUELOS MD 401.9 HYPERTENSION NOS 09/04/2014 JASBIR BAÑUELOS MD 414.01 CORONARY ATHEROSCLEROSIS OF [place] CORONARY VESSEL 09/04/2014 JASBIR BAÑUELOS MD 427.31 ATRIAL FIBRILLATION 09/04/2014 JASBIR BAÑUELOS MD 429.2 ASCVD 09/04/2014 JASBIR BAÑUELOS MD 438.20 LATE EFF-CEREBR DIS,HEMIPLEGIA AFFECTING UNSPECIFI 09/04/2014 JASBIR BAÑUELOS MD 496 CHR AIRWAY OBSTRUCT NEC 09/04/2014 JASBIR BAÑUELOS MD 530.81 ESOPHAGEAL REFLUX 09/04/2014 JASBIR BAÑUELOS MD 536.8 STOMACH FUNCTION DIS NEC 09/04/2014 JASBIR BAÑUELOS MD A 600.00 HYPERTROPHY (BENIGN) OF PROSTATE W/O URINARY [...] DEPRESSIVE DISORDER NEC 09/04/2014 JASBIR BAÑUELOS MD A 338.29 OTHER CHRONIC PAIN 09/04/2014 JASBIR BAÑUELOS MD A 401.9 HYPERTENSION NOS 09/04/2014 JASBIR BAÑUELOS MD A 414.01 CORONARY ATHEROSCLEROSIS OF [place] CORONARY VESSEL 09/04/2014 JASBIR BAÑUELOS MD A 427.31 ATRIAL FIBRILLATION 09/04/2014 JASBIR BAÑUELOS MD A 429.2 ASCVD 09/04/2014 JASBIR BAÑUELOS MD A 438.20 LATE EFF-CEREBR DIS,HEMIPLEGIA AFFECTING UNSPECIFI 09/04/2014 JASBIR BAÑUELOS MD A 496 CHR AIRWAY OBSTRUCT NEC 09/04/2014 JASBIR BAÑUELOS MD A 530.81 ESOPHAGEAL REFLUX 09/04/2014 JASBIR BAÑUELOS MD A 536.8 STOMACH FUNCTION DIS NEC 09/04/2014 JASBIR BAÑUELOS MD A 600.00 HYPERTROPHY (BENIGN) OF PROSTATE W/O URINARY OBST 09/04/2014 JASBIR BAÑUELOS MD A 724.2 LUMBAGO 09/04/2014 JASBIR BAÑUELOS MD A V12.51 HX-VENOUS THROMBOSIS EMBOLISM 09/04/2014 JASBIR BAÑUELOS MD A V14.8 HX-DRUG ALLERGY NEC 09/04/2014 JASBIR BAÑUELOS [...] BAÑUELOS MD Other 414.01 CORONARY ATHEROSCLEROSIS OF [place] CORONARY VESSEL 09/04/2014 JASBIR BAÑUELOS MD Other 427.31 ATRIAL FIBRILLATION 09/04/2014 JASBIR BAÑUELOS MD 429.2 ASCVD 09/04/2014 JASBIR BAÑUELOS MD Other 438.20 LATE EFF-CEREBR DIS,HEMIPLEGIA AFFECTING UNSPECIFIED SIDE 09/04/2014 JASBIR BAÑUELOS MD [address] [...] MD Other V14.8 HX-DRUG ALLERGY NEC 09/04/2014 BAÑUELOS MD, DIRK T Other V15.82 HISTORY OF TOBACCO USE 09/04/2014 [...] BAÑUELOS MD Other 414.01 CORONARY ATHEROSCLEROSIS OF [place] CORONARY VESSEL 09/04/2014 JASBIR BAÑUELOS MD Other [...] Other V14.8 HX-DRUG ALLERGY NEC 09/04/2014 JASBIR BAUÑELOS MD Other V15.82 HISTORY OF TOBACCO USE [...] BAÑUELOS MD Other 414.01 CORONARY ATHEROSCLEROSIS OF [place] CORONARY VESSEL 09/04/2014 JASBIR BAÑUELOS MD Other [...] BAÑUELOS MD Other 414.01 CORONARY ATHEROSCLEROSIS OF [place] CORONARY VESSEL 09/08/2014 JASBIR BAÑUELOS MD Other 427.31 ATRIAL FIBRILLATION 09/08/2014 JASBIR BAÑUELOS MD Other 429.2 ASCVD 09/08/2014 JASBIR BAÑUELOS MD Other 438.20 LATE EFF-CEREBR DIS,HEMIPLEGIA AFFECTING UNSPECIFIED SIDE 09/08/2014 JASBIR BAÑUELOS MD T Other 496 CHR AIRWAY OBSTRUCT NEC 09/08/2014 JASBIR BAÑUELOS MD Other 530.81 ESOPHAGEAL REFLUX 09/08/2014 JASBIR BAÑUELOS MD T Other 536.8 STOMACH FUNCTION DIS NEC 09/08/2014 JASBIR BAÑUELOS MD Other 600.00 HYPERTROPHY (BENIGN) OF PROSTATE W/O URINARY OBST OTH LUTS 09/08/2014 JASBIR BAÑUELOS MD Other 724.2 LUMBAGO 09/08/2014 JASBIR BAÑUELOS MD Other 799.23 IMPULSIVENESS 09/08/2014 JASBIR BAÑUELOS MD T Other 820.8 FX NECK OF FEMUR NOS-CL 09/08/2014 JASBIR BAÑUELOS MD Other E888.9 FALL NOS 09/08/2014 JASBIR BAÑUELOS MD Other V12.51 HX-VENOUS THROMBOSIS EMBOLISM 09/08/2014 JASBIR BAÑUELOS MD Other V14.8 HX-DRUG ALLERGY NEC 09/08/2014 JASBIR BAÑUELOS MD V15.82 HISTORY OF TOBACCO USE 09/08/2014 JASBIR BAÑUELOS MD V43.64 HIP JOINT REPLACEMENT STATUS 09/08/2014 JASBIR BAÑUELOS MD V45.82 PERCUTANEOUS TRANSLUM CORON ANGIOPLASTY STATUS 09/08/2014 JASBIR BAÑUELOS MD V57.89 REHABILITATION PROC NEC 09/08/2014 JASBIR BAÑUELOS MD V58.75 AFTERCARE POST SURGERY TEETH,ORAL CAVITY/DIGESTIVE NEC 09/08/2014 JASBIR BAÑUELOS MD V60.3 PERSON LIVING ALONE 09/20/2014 VASILE BECKWITH [...] VEINS UPPER EXT 10/19/2014 MARVIN MERCEDES DO Other 451.83 PHLEBITIS THROMBOPHLEBITIS,DEEP VEINS UPPER EXT 11/13/2014 SOPHIE DISLA APRN Other 414.00 CORON ATHEROSCLER NOS TYPE VESSEL, [place] OR GRAFT 11/13/2014 SOPHIE DISLA APRN Other 427.31 ATRIAL FIBRILLATION 11/13/2014 SOPHIE DISLA APRN Other 959.6 HIP THIGH INJURY NOS 11/13/2014 SOPHIE DISLA APRN Other E849.0 ACCIDENT IN HOME 11/13/2014 SOPHIE DISLA APRN Other E888.8 FALL NEC 11/15/2014 MANUELA WILBURN APRN Other 345.90 EPILEPSY UNSPEC W/O MENTION INTRACTABLE EPILEPSY 11/15/2014 MANUELA WILBURN APRN Other 728.85 SPASM OF MUSCLE 11/15/2014 MANUELA WILBURN APRN Other 729.1 MYALGIA AND MYOSITIS NOS 11/15/2014 MANUELA WILBURN APRN DG 789.00 ABDOMINAL PAIN, UNSPECIFIED SITE 11/16/2014 MARVIN MERCEDES DO V58.61 ANTICOAGULANTS,LT,CURRENT USE 11/16/2014 MARVIN MERCEDES DO V58.61 ANTICOAGULANTS,LT,CURRENT USE 11/16/2014 MARVIN MERCEDES DO Other 300.02 GENERALIZED ANXIETY DIS 11/16/2014 MARVIN MERCEDES DO 724.2 LUMBAGO 11/16/2014 MARVIN MERCEDES DO Other 780.39 OTHER CONVULSIONS 11/16/2014 MARVIN MERCEDES DO [...] MERCEDES DO M54.5 LOW BACK PAIN 01/14/2015 MARVIN MERCEDES DO K21.9 GASTRO-ESOPHAGEAL REFLUX DISEASE WITHOUT ESOPHAGITIS 01/14/2015 MARVIN MERCEDES DO M54.5 LOW BACK PAIN 01/20/2015 MARVIN MERCEDES DO S79.911A UNSPECIFIED INJURY OF RIGHT HIP, INITIAL ENCOUNTER 01/20/2015 MARVIN MERCEDES DO W06.XXXA FALL FROM BED, INITIAL ENCOUNTER 01/20/2015 MARVIN MERCEDES DO Y92.092 BEDROOM IN [facility] NON-INSTITUTIONAL RESIDENCE PLACE 02/02/2015 SHADY MORELAND MD G45.9 TRANSIENT CEREBRAL ISCHEMIC ATTACK, UNSPECIFIED 02/02/2015 SHADY MORELAND MD Other 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 02/03/2015 MERLY ROMERO, SHADY WRIGHT G45.9 TRANSIENT CEREBRAL ISCHEMIC ATTACK, UNSPECIFIED 02/03/2015 MERLY ROMERO, SHADY WRIGHT 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 02/03/2015 SHADY MORELAND MD Other G45.9 TRANSIENT CEREBRAL ISCHEMIC ATTACK, UNSPECIFIED 02/03/2015 SHADY MORELAND MD Other 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 02/14/2015 MANUELA WILBURN FLORAL ASSOCIATE Other R10.84 GENERALIZED ABDOMINAL PAIN 02/14/2015 MANUELA WILBURN FLORAL ASSOCIATE Other R11.0 NAUSEA 02/14/2015 MANUELA WILBURN APRN Other R19.7 DIARRHEA, UNSPECIFIED 02/16/2015 Oswaldo ROMERO, Lizbeth Sullivan 435.9 TIA 02/27/2015 MANUELA WILBURN APRN Other M54.5 LOW BACK PAIN 03/06/2015 VASILE BECKWITH PA-C Other S79.911A UNSPECIFIED INJURY OF RIGHT HIP, INITIAL ENCOUNTER 03/06/2015 VASILE BECKWITH PA-C Other W18.30XA FALL ON SAME LEVEL, UNSPECIFIED, INITIAL ENCOUNTER 03/06/2015 VASILE BECKWITH PA-C Other Y92.[address] IN UNSP NON-INSTITUT (PRIVATE) RESIDENCE PLACE 03/07/2015 VASILE BECKWITH PA-C [...] (PRIVATE) HOUSE PLACE 04/21/2015 OSWALDO ROMERO, LIZBETH WRIGHT R10.84 GENERALIZED ABDOMINAL PAIN 04/21/2015 OSWALDO ROMERO, LIZBETH WRIGHT R41.3 OTHER AMNESIA 04/21/2015 Oswaldo ROMERO, Lizbeth F 780.93 Memory loss 04/21/2015 LIZBETH CHACON MD Other R10.84 GENERALIZED ABDOMINAL PAIN 04/21/2015 LIZBETH CHACON MD Other R41.3 OTHER AMNESIA 04/22/2015 LIZBETH CHACON MD Other R41.3 OTHER AMNESIA 04/26/2015 Oswaldo ROMERO, Lizbeth Sullivan 305.50 Opiod abuse, NOS 04/26/2015 FIONA RETANA MD P Ot I10 ESSENTIAL (PRIMARY) HYPERTENSION 04/26/2015 FIONA RETANA MD P Ot M25.551 PAIN IN RIGHT HIP 04/26/2015 FIONA RETANA MD P Ot M54.5 LOW BACK PAIN 04/26/2015 FIONA RETANA MD P Ot S70.01XA CONTUSION OF RIGHT HIP, INITIAL ENCOUNTE 04/26/2015 FIONA RETANA MD P Ot W19.XXXA UNSPECIFIED FALL, INITIAL ENCOUNTER 04/26/2015 FIONA RETANA MD P Ot Z96.641 PRESENCE OF RIGHT ARTIFICIAL HIP JOINT 04/28/2015 MERLY ROMERO, SHADY WRIGHT E05.90 THYROTOXICOSIS, UNSP WITHOUT THYROTOXIC CRISIS OR 04/28/2015 SHADY MORELAND MD R41.82 ALTERED MENTAL STATUS, UNSPECIFIED 04/28/2015 SHADY MORELAND MD Other E05.90 THYROTOXICOSIS, UNSP WITHOUT THYROTOXIC CRISIS OR STORM 04/28/2015 SHADY MORELAND MD Other R41.82 ALTERED MENTAL STATUS, UNSPECIFIED 05/11/2015 LIZBETH CHACON MD Other E87.6 HYPOKALEMIA 05/11/2015 LIZBETH CHACON MD Other F10.10 ALCOHOL ABUSE, UNCOMPLICATED 05/11/2015 LIZBETH CHACON MD Other R41.82 ALTERED MENTAL STATUS, UNSPECIFIED 05/11/2015 LIZBETH CHACON MD Other R55 SYNCOPE AND COLLAPSE 05/11/2015 LIZBETH CHACON MD Other Z79.899 OTHER GROUP HOME (CURRENT) DRUG THERAPY 05/12/2015 Oswaldo ROMERO, Lizbeth Sullivan 276.8 Hypokalemia 05/12/2015 Lizbeth Chacon MD 300.4 Depression with anxiety 05/19/2015 NOÉ SHELTON MD Other G89.11 ACUTE PAIN DUE TO TRAUMA 05/19/2015 NOÉ SHELTON MD Other M25.551 PAIN IN RIGHT HIP 05/19/2015 NOÉ SHELTON MD Other S70.01XA CONTUSION OF RIGHT HIP, INITIAL ENCOUNTER 05/19/2015 NOÉ HSELTON MD Other W19.XXXA UNSPECIFIED FALL, INITIAL ENCOUNTER 05/19/2015 NOÉ SHELTON MD Other Y92.002 [facility]HRM OF [facility] 05/19/2015 NOÉ SHELTON MD Other Y99.9 UNSPECIFIED EXTERNAL CAUSE STATUS 05/19/2015 AWAIS OLMOS MD Ot S70.01XA CONTUSION OF RIGHT HIP, INITIAL ENCOUNTE 05/19/2015 AWAIS OLMOS MD Ot W18.39XA OTHER FALL ON SAME LEVEL, INITIAL ENCOUN 05/23/2015 REGINALDO THAYER Other S79.911A UNSPECIFIED INJURY OF RIGHT HIP, INITIAL ENCOUNTER 05/23/2015 REGINALDO THAYRE Other W18.30XA FALL ON SAME LEVEL, UNSPECIFIED, INITIAL ENCOUNTER 05/23/2015 REGINALDO THAYER Other Y92.[address] [facility] PLACE IN SINGLE-FAMILY (PRIVATE) HOUSE PLACE 05/24/2015 AMCIE HERNÁNDEZ [id number] GROUP HOME (CURRENT) USE OF OPIATE ANALGESIC 05/25/2015 OSWALDO [...] MORELAND MD 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 06/17/2015 SHADY MORELAND MD I48.91 UNSPECIFIED ATRIAL FIBRILLATION 06/17/2015 SHADY MORELAND MD J44.9 CHRONIC OBSTRUCTIVE PULMONARY DISEASE, UNSPECIFIED 06/17/2015 SHADY MORELAND MD K21.9 GASTRO-ESOPHAGEAL REFLUX DISEASE WITHOUT ESOPHAGIT [...] MORELAND MD 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 W [facility] ANG PCTRS 06/17/2015 SHADY MORELAND MD I48.91 [...] W/O RESID DEFICITS 06/18/2015 VASILE BECKWITH PA-C DG R07.89 OTHER CHEST PAIN 06/18/2015 VASILE BECKWITH PA-C DG Z79.891 GROUP HOME (CURRENT) USE OF OPIATE ANALGESIC 06/18/2015 VASILE BECKWITH PA-C Other R07.89 OTHER CHEST PAIN 06/18/2015 VASILE BECKWITH PA-C Other Z79.891 GROUP HOME (CURRENT) USE OF OPIATE ANALGESIC 06/23/2015 JENKINS DO, KEYA M Ot M94.0 06/23/2015 JENKINS DO, KEYA M Ot R07.89 06/23/2015 JENKINS DO, KEYA M Ot M94.0 06/23/2015 JENKINS DO, KEYA M Ot R07.89 06/27/2015 JARETT RUSH MD F17.210 NICOTINE DEPENDENCE, CIGARETTES, UNCOMPLICATED 06/27/2015 JARETT RUSH MD R06.00 DYSPNEA, UNSPECIFIED 06/27/2015 JARETT RUSH MD R07.89 OTHER CHEST PAIN 06/27/2015 JARETT RUSH MD F17.210 NICOTINE DEPENDENCE, CIGARETTES, UNCOMPLICATED 06/27/2015 JARETT RUSH MD R06.00 DYSPNEA, UNSPECIFIED 06/27/2015 JARETT RUSH MD R07.89 OTHER CHEST PAIN 06/29/2015 SHADY MORELAND MD F11.20 OPIOID DEPENDENCE, UNCOMPLICATED 06/29/2015 SHADY MORELAND MD I25.10 ATHSCL HEART DISEASE OF [place] CORONARY ARTERY W/O 06/29/2015 SHADY MORELAND MD R07.89 OTHER CHEST PAIN 06/29/2015 SHADY MORELAND MD Other F11.20 OPIOID DEPENDENCE, UNCOMPLICATED 06/29/2015 SHADY MORELAND MD Other I25.10 ATHSCL HEART DISEASE OF [place] CORONARY ARTERY W/O ANG PCTRS 06/29/2015 SHADY MORELAND MD R07.89 OTHER CHEST PAIN 07/01/2015 ADORE NUNEZ MD, Ot R07.89 OTHER CHEST PAIN 07/06/2015 ADORE NUNEZ MD Ot R07.89 07/28/2015 MAYRA ROMERO, ADORE Ot M25.522 PAIN IN LEFT ELBOW 07/28/2015 MAYRA ROMERO, ADORE Ot Z87.828 PERSONAL HISTORY OF OTH (HEALED) PHYSICA 08/02/2015 MAYRA ROMERO, ADORE Ot M25.522 PAIN IN LEFT ELBOW 08/02/2015 MAYRA ROMERO, ADORE Ot Z87.828 PERSONAL HISTORY OF OTH (HEALED) [...] 08/30/2015 VASILE BECKWITH PA-C Other Z79.899 OTHER GROUP HOME (CURRENT) DRUG THERAPY 09/27/2015 Ot F10.120 ALCOHOL [...] 10/23/2015 MANUELA WILBURN APRN Other Z79.899 OTHER GROUP HOME (CURRENT) DRUG THERAPY 10/26/2015 AWAIS OLMOS MD R Ot S70.02XA CONTUSION OF LEFT HIP, INITIAL ENCOUNTER 10/29/2015 AWAIS OLMOS MD R Ot S70.02XA CONTUSION OF LEFT HIP, INITIAL ENCOUNTER 11/04/2015 MACIE HERNÁNDEZ Z79.891 GROUP HOME (CURRENT) USE OF OPIATE ANALGESIC 11/19/2015 JOEY GARCIA MD Other F10.180 ALCOHOL ABUSE WITH ALCOHOL-INDUCED ANXIETY DISORDER 11/19/2015 JOEY GARCIA MD Other F32.9 MAJOR DEPRESSIVE DISORDER, SINGLE EPISODE, UNSPECIFIED 11/19/2015 JOEY GARCIA MD Other I25.10 ATHSCL HEART DISEASE OF [place] CORONARY ARTERY W/O ANG PCTRS 11/19/2015 JOEY GARCIA MD Other S79.911A UNSPECIFIED INJURY OF RIGHT HIP, INITIAL ENCOUNTER 11/19/2015 JOEY GARCIA MD W17.89XA OTHER FALL FROM ONE LEVEL TO ANOTHER, INITIAL ENCOUNTER 11/19/2015 JOEY GARCIA MD Other Y90.6 BLOOD ALCOHOL LEVEL [...] MD Other I10 ESSENTIAL (PRIMARY) HYPERTENSION 11/23/2015 DEBORAH ROMERO, STEVEN Castro Other I25.10 ATHSCL HEART DISEASE OF [place] CORONARY ARTERY W/O ANG PCTRS 11/23/2015 DEBORAH ROMERO, STEVEN Castro Other J44.9 CHRONIC OBSTRUCTIVE PULMONARY DISEASE, UNSPECIFIED 11/23/2015 DEBORAH ROMERO, STEVEN Castro Other J45.909 UNSPECIFIED ASTHMA, UNCOMPLICATED 11/23/2015 DEBORAH ROMERO, STEVEN Castro Other K21.9 GASTRO-ESOPHAGEAL REFLUX DISEASE WITHOUT ESOPHAGITIS 11/23/2015 DEBORAH ROMERO, STEVEN Castro Other R45.851 SUICIDAL IDEATIONS 11/23/2015 DEBORAH ROMERO, STEVEN Castro Other Z86.73 PRSNL HX OF TIA (TIA), 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EFICITS 12/21/2015 SHANTEL ROMERO, BALAJI Hamilton Other J44.1 CHRONIC OBSTRUCTIVE PULMONARY DISEASE W (ACUTE) EXACERBATION 12/21/2015 BALAJI FUNES MD Other R07.9 CHEST PAIN, UNSPECIFIED 12/23/2015 VASILE BECKWITH PA-C Other R07.9 CHEST PAIN, UNSPECIFIED 12/25/2015 KULWANT GARCIA Other M54.9 DORSALGIA, UNSPECIFIED 12/25/2015 KULWANT GARCIA Other R07.89 OTHER CHEST PAIN 12/25/2015 KULWANT GARCIA Other Z79.899 OTHER LINE FISHER (CURRENT) DRUG THERAPY 12/27/[address] DO I10 ESSENTIAL (PRIMARY) HYPERTENSION 12/27/[address]ER DO R06.02 SHORTNESS OF BREATH 12/27/[address]ER DO R07.9 CHEST PAIN, UNSPECIFIED 12/27/[address] DO Other I10 ESSENTIAL (PRIMARY) HYPERTENSION 12/27/[address]ER DO Other R06.02 SHORTNESS OF BREATH 12/27/2015 [address]ER DO Other R07.9 CHEST PAIN, UNSPECIFIED 01/06/2016 JOSE CARLSON FLORAL ASSOCIATE-C Other E04.9 NONTOXIC GOITER, UNSPECIFIED 01/19/[address] DO F10.27 ALCOHOL DEPENDENCE WITH ALCOHOL-INDUCED PERSISTING 01/19/2016 NEDICH DO, MITRA L DG N18.3 CHRONIC KIDNEY DISEASE, STAGE 3 (MODERATE) 01/19/[address] DO R31.9 HEMATURIA, UNSPECIFIED 01/19/2016 [address]ER DO Other F10.27 ALCOHOL DEPENDENCE WITH ALCOHOL-INDUCED PERSISTING DEMENTIA 01/19/2016 [address]RA [address]RE[address]ER DO Other N18.3 CHRONIC KIDNEY DISEASE, STAGE 3 (MODERATE) 01/19/[address]ER DO Other R31.9 HEMATURIA, UNSPECIFIED 01/21/2016 WEI SMITH [...] 01/21/2016 WEI SMITH MD Other Z79.899 OTHER GROUP HOME (CURRENT) DRUG THERAPY 01/21/2016 WEI SMITH MD Other Z88.5 ALLERGY STATUS TO NARCOTIC AGENT STATUS 01/25/2016 DAVE JARVIS DO Other F10.120 ALCOHOL ABUSE WITH INTOXICATION, UNCOMPLICATED 01/25/2016 DAVE JARVIS DO Other R45.851 SUICIDAL IDEATIONS 01/25/2016 DAVE JARVIS DO Other Y90.9 PRESENCE OF ALCOHOL IN BLOOD, LEVEL NOT SPECIFIED 01/25/2016 DAVE JARVIS DO Other Z79.51 GROUP HOME (CURRENT) USE OF INHALED STEROIDS 01/25/2016 DAVE JARVIS DO Other Z79.82 LINE FISHER (CURRENT) USE OF ASPIRIN 02/04/[address] DO Other E72.20 DISORDER OF UREA CYCLE METABOLISM, UNSPECIFIED 02/19/2016 JARETT GIBSON MD Ot G89.29 OTHER CHRONIC PAIN 02/19/2016 JARETT GIBSON MD Ot M25.551 PAIN IN RIGHT HIP 02/19/2016 PAIGE ROMERO, JARETT Trejo Ot Z91.81 HISTORY OF FALLING 02/19/2016 Ot 305.1 TOBACCO USE DISORDER 02/19/2016 Ot 401.9 HYPERTENSION NOS 02/19/2016 Ot 496 CHR AIRWAY OBSTRUCT NEC 02/19/2016 Ot 786.50 CHEST PAIN NOS 02/19/2016 OSWALDO ROMERO, LIZBETH M Ot I67.82 CEREBRAL ISCHEMIA 02/19/2016 OSWALDO ROMERO, LIZBETH M Ot R41.2 RETROGRADE AMNESIA 02/19/2016 OSWALDO ROMERO, LIZBETH M Ot R41.3 OTHER AMNESIA 02/24/2016 PAIGE ROMERO, JARETT Trejo Ot G89.29 OTHER CHRONIC PAIN 02/24/2016 JARETT GIBSON MD Ot M25.551 PAIN IN RIGHT HIP 02/24/2016 PAIGE ROMERO, JARETT Trejo Ot Z91.81 HISTORY OF FALLING 02/29/2016 MACIE HERNÁNDEZ P Z79.891 LINE FISHER (CURRENT) USE OF OPIATE ANALGESIC 03/23/2016 ALBA COLLINS DO M25.559 PAIN IN UNSPECIFIED HIP 03/23/2016 KARINA ALBA AGUILA Other M25.559 PAIN IN UNSPECIFIED HIP 03/30/2016 KARINA ALBA AGUILA Other M25.559 PAIN IN UNSPECIFIED HIP 03/31/2016 ALBA COLLINS DO Other M25.559 PAIN IN UNSPECIFIED HIP 03/31/2016 KARINA ALBA AGUILA Other M25.551 PAIN IN RIGHT HIP 03/31/2016 KARINA ALBA AGUILA Other M25.559 PAIN IN UNSPECIFIED HIP 03/31/2016 ALBA COLLINS DO Other Z96.641 PRESENCE OF RIGHT ARTIFICIAL HIP JOINT 04/04/2016 ALBA COLLINS DO Other M25.559 PAIN IN UNSPECIFIED HIP 04/04/2016 ALBA COLLINS DO M25.551 PAIN IN RIGHT HIP 04/07/2016 KARINA ALBA AGUILA Other M25.559 PAIN IN UNSPECIFIED HIP 04/07/2016 KARINA ALBA AGUILA M25.551 PAIN IN RIGHT HIP 04/07/2016 KARINA ALBA AGUILA Other M25.559 PAIN IN UNSPECIFIED HIP 04/07/2016 ALBA COLLINS DO Other M25.551 PAIN IN RIGHT HIP 04/25/2016 MACIE HERNÁNDEZ Z79.891 LINE FISHER (CURRENT) USE OF OPIATE ANALGESIC 05/26/2016 MANUELA WILBURN APRN F10.129 ALCOHOL ABUSE WITH INTOXICATION, UNSPECIFIED 05/26/2016 MANUELA WILBURN APRN T50.902A POISONING BY UNSP DRUG/MEDS/BIOL SUBST, SELF-HARM, 05/26/2016 MANUELA WILBURN APRN Z79.899 OTHER LINE FISHER (CURRENT) DRUG THERAPY 05/31/2016 MITZI BARAJAS MD Other F10.229 ALCOHOL DEPENDENCE WITH INTOXICATION, UNSPECIFIED 05/31/2016 MITZI BARAJAS MD F17.210 NICOTINE DEPENDENCE, CIGARETTES, UNCOMPLICATED 05/31/2016 MITZI BARAJAS MD 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, RECURRENT SEVERE W/O PSYCH FEATURES 05/31/2016 MITZI BARAJAS MD G89.4 CHRONIC PAIN SYNDROME 05/31/2016 MITZI BARAJAS MD H35.30 UNSPECIFIED MACULAR DEGENERATION 05/31/2016 MITZI BARAJAS MD I10 ESSENTIAL (PRIMARY) HYPERTENSION 05/31/2016 MITZI BARAJAS MD I25.10 ATHSCL HEART DISEASE OF [place] CORONARY ARTERY W/O ANG PCTRS 05/31/2016 MITZI BARAJAS MD I25.2 OLD MYOCARDIAL INFARCTION 05/31/2016 MITZI BARAJAS MD J45.909 UNSPECIFIED ASTHMA, UNCOMPLICATED 05/31/2016 MITZI BARAJAS MD M25.551 PAIN IN RIGHT HIP 05/31/2016 MITZI BARAJAS MD R05 COUGH 05/31/2016 MITZI BARAJAS MD R45.851 SUICIDAL IDEATIONS 05/31/2016 MITZI BARAJAS MD T50.992A POISONING BY OTH DRUG/MEDS/BIOL SUBST, SELF-HARM, INIT 05/31/2016 NARRATIVE WRITER SOLITARIO MD, MITZI M Other Z86.73 PRSNL HX OF TIA (TIA), 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EFICITS 05/31/2016 TRENT SOLITARIO MD, MITZI Queen Other Z91.5 PERSONAL HISTORY OF SELF-HARM 05/31/2016 TRENT SOLITARIO MD, MITZI Queen Other Z95.5 PRESENCE OF CORONARY ANGIOPLASTY IMPLANT AND GRAFT 05/31/2016 TRENT SOLITARIO MDMITZI Other Z96.641 PRESENCE OF RIGHT ARTIFICIAL HIP JOINT 05/31/2016 TRENT SOLITARIO MD MITZI Queen Other Z98.41 CATARACT EXTRACTION STATUS, RIGHT EYE 05/31/2016 TRENT SOLITARIO MD MITZI Queen Other Z98.42 CATARACT EXTRACTION STATUS, [...] R45.851 Suicidal ideations 08/18/[address] DO DG D75.1 SECONDARY POLYCYTHEMIA 08/18/2016 [address]ER DO L DG E78.5 HYPERLIPIDEMIA, UNSPECIFIED 08/18/[address] DO L DG I10 ESSENTIAL (PRIMARY) HYPERTENSION 08/18/2016 [address]RA [address]RE[address]ER DO L DG J20.8 ACUTE BRONCHITIS DUE TO OTHER SPECIFIED ORGANISMS 08/18/2016 [address]ER DO L DG R07.0 PAIN IN THROAT 08/22/2016 [address]ER DO L DG D75.1 SECONDARY POLYCYTHEMIA 08/22/2016 [address]RA [address]RE[address]ER DO L DG E78.5 HYPERLIPIDEMIA, UNSPECIFIED 08/22/[address] DO L DG I10 ESSENTIAL (PRIMARY) HYPERTENSION 10/09/2016 SULY [...] ML 10/18/2016 RASHMI REINA Other Z79.899 OTHER GROUP HOME (CURRENT) DRUG THERAPY 11/08/2016 SOPHIE DISLA APRN R07.9 CHEST PAIN, UNSPECIFIED 11/08/2016 SOPHIE DISLA APRN R51 HEADACHE 11/08/2016 SOPHIE DISLA APRN Z79.899 OTHER LINE FISHER (CURRENT) DRUG THERAPY 11/09/2016 DAVE JARVIS DO Other F11.20 OPIOID DEPENDENCE, UNCOMPLICATED 11/09/2016 DAVE JARVIS DO Other R45.851 SUICIDAL IDEATIONS 11/09/2016 DAVE JARVIS DO Other Z79.51 LINE FISHER (CURRENT) USE OF INHALED STEROIDS 11/09/2016 DAVE JARVIS DO Other Z79.899 OTHER LINE FISHER (CURRENT) DRUG THERAPY 11/22/2016 RONY FRENCH MD E78.5 Hyperlipidemia, unspecified 11/22/2016 RONY FRENCH MD F33.2 Major depressv disorder, recurrent severe w/o psych features 11/22/2016 RONY FRENCH MD I10 Essential (primary) hypertension 11/22/2016 RONY FRENCH MD I25.10 Athscl heart disease of [place] coronary artery w/o ang pctrs 11/22/2016 RONY [...] FRENCH MD I25.10 Athscl heart disease of [place] coronary artery w/o ang pctrs 12/14/2016 RONY [...] AND GIDDINESS 12/22/2016 SULY SOUZA MD Z79.51 GROUP HOME (CURRENT) USE OF INHALED STEROIDS 12/22/2016 SULY SOUZA MD Z86.73 PRSNL HX OF TIA (TIA), 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EFICITS 12/22/2016 SULY SOUZA MD Z88.5 ALLERGY STATUS TO NARCOTIC AGENT STATUS 01/03/2017 HANNAH OCONNELL E78.5 Hyperlipidemia, unspecified 01/03/2017 HANNAH OCONNELL F32.9 Major depressive disorder, single episode, unspecified 01/03/2017 HANNAH OCONNELL I10 Essential (primary) hypertension 01/03/2017 HANNAH OCONNELL I25.10 Atherosclerotic heart disease of [place] coronary artery without angina pectoris 01/03/2017 HANNAH [...] SUICIDAL IDEATIONS 02/05/2017 WEI SMITH MD Z79.1 LINE FISHER (CURRENT) USE OF NON-STEROIDAL NON-INFLA 02/05/2017 WEI SMITH MD Z79.51 GROUP HOME (CURRENT) USE OF INHALED STEROIDS 02/05/2017 WEI SMITH MD Z79.899 OTHER LINE FISHER (CURRENT) DRUG THERAPY 02/13/2017 RONY FRENCH MD F17.210 Nicotine dependence, cigarettes, uncomplicated 02/13/2017 RONY FRENCH MD F33.2 Major depressv disorder, recurrent severe w/o psych features 02/13/2017 RONY FRENCH MD G89.29 Other chronic pain 02/13/2017 RONY FRENCH MD I10 Essential (primary) hypertension 08/02/2017 Johnny Hurtado W 294.21 08/02/2017 Johnny Hurtado W 300.02 08/02/2017 Johnny Hurtado W 303.90 08/02/2017 BryantKeven barraganb W 305.1 TOBACCO USE DISORDER 08/02/2017 BryantKeven barraganb W 338.2 CHRONIC PAIN 08/02/2017 BryantKeven barraganb W 414.01 08/02/2017 Bryant, Johnny W 427.31 ATRIAL FIBRILLATION 08/02/2017 BryantKeven barraganb W 438.22 08/02/2017 BryantKeven barraganb W 491.20 08/02/2017 BryantKeven barraganb W 530.81 ESOPHAGEAL REFLUX 08/02/2017 BryantKeven barraganb W 600.20 08/02/2017 BryantKeven barraganb W 724.5 BACKACHE, UNSPECIFIED 08/02/2017 Johnny Hurtado W F03.91 08/02/2017 BryantKeven barraganb W F10.20 ALCOHOL DEPENDENCE, UNCOMPLICATED 08/02/2017 Johnny Hurtado A F33.3 08/02/2017 Johnny Hurtado W F41.1 08/02/2017 Bryant Johnny W G89.29 OTHER CHRONIC PAIN 08/02/2017 Johnny Hurtado W I25.10 ATHSCL HEART DISEASE OF [place] CORONARY ARTERY W/O ANG PCTRS 08/02/2017 Johnny Hurtado W I48.91 UNSPECIFIED ATRIAL FIBRILLATION 08/02/2017 Johnny Hurtado W 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 08/02/2017 Johnny Hurtado W J44.9 CHRONIC OBSTRUCTIVE PULMONARY DISEASE, UNSPECIFIED 08/02/2017 Johnny Hurtado W K21.9 GASTRO-ESOPHAGEAL REFLUX DISEASE WITHOUT ESOPHAGITIS 08/02/2017 Johnny Hurtado W M54.9 DORSALGIA, UNSPECIFIED 08/02/2017 Johnny Hurtado W N40.0 BENIGN PROSTATIC HYPERPLASIA WITHOUT LOWER URINRY TRACT SYMP 08/02/2017 Keven Hurtadob W Z72.0 TOBACCO USE 01/17/2018 SATISH MIRELES APRN Ot K31.89 OTHER DISEASES OF STOMACH AND DUODENUM 01/17/2018 SATISH MIRELES APRN Ot K57.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/O PERFORATION OR AB 01/17/2018 SATISH MIRELES APRN Ot K59.00 CONSTIPATION, UNSPECIFIED 01/17/2018 SATISH MIRELES FLORAL ASSOCIATE Ot K31.89 OTHER DISEASES OF STOMACH AND DUODENUM 01/17/2018 SATISH MIRELES APRN Ot K57.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/O PERFORATION OR AB 01/17/2018 SATISH MIRELES APRN Ot K59.00 CONSTIPATION, UNSPECIFIED 02/01/2018 TAISHA CINTRON DO B Ot Z01.818 ENCOUNTER FOR OTHER PREPROCEDURAL EXAMIN 02/04/2018 TAISHA CINTRON DO B Ot Z01.818 ENCOUNTER FOR OTHER PREPROCEDURAL EXAMIN 02/04/2018 TAISHA CINTRON DO B Ot E78.5 HYPERLIPIDEMIA, UNSPECIFIED 02/04/2018 KEIRA CINTRON DOIC B Ot F17.200 NICOTINE DEPENDENCE, UNSPECIFIED, UNCOMP 02/04/2018 TAISHA CINTRON DO B Ot F32.9 MAJOR DEPRESSIVE DISORDER, SINGLE EPISOD 02/04/2018 TAISHA CINTRON DO B Ot G62.9 POLYNEUROPATHY, UNSPECIFIED 02/04/2018 TAISHA CINTRON DO B Ot I10 ESSENTIAL (PRIMARY) HYPERTENSION 02/04/2018 TAISHA CINTRON DO B Ot 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 AFFECT 02/04/2018 TAISHA CINTRON DO B Ot J44.9 CHRONIC OBSTRUCTIVE PULMONARY DISEASE, U 02/04/2018 TAISHA CINTRON DO B Ot K21.9 GASTRO-ESOPHAGEAL REFLUX DISEASE WITHOUT 02/04/2018 TAISHA CINTRON DO B Ot K29.70 GASTRITIS, UNSPECIFIED, WITHOUT BLEEDING 02/04/2018 TAISHA CINTRON DO B Ot K31.7 POLYP OF STOMACH AND DUODENUM 02/04/2018 TAISHA CINTRON DO B Ot K44.9 DIAPHRAGMATIC HERNIA WITHOUT OBSTRUCTION 02/04/2018 TAISHA CINTRON DO B Ot Z79.899 OTHER GROUP HOME (CURRENT) DRUG THERAPY 02/08/2018 TAISHA CINTRON DO B Ot E78.5 HYPERLIPIDEMIA, UNSPECIFIED 02/08/2018 TAISHA CINTRON DO B Ot F17.200 NICOTINE DEPENDENCE, UNSPECIFIED, UNCOMP 02/08/2018 KEIRA CINTRON DOIC B Ot F32.9 MAJOR DEPRESSIVE DISORDER, SINGLE EPISOD 02/08/2018 KEIRA CINTRON DOIC B Ot G62.9 POLYNEUROPATHY, UNSPECIFIED 02/08/2018 KEIRA CINTRON DOIC B Ot I10 ESSENTIAL (PRIMARY) HYPERTENSION 02/08/2018 KEIRA CINTRON DOIC B Ot 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 AFFECT 02/08/2018 KEIRA CINTRON DOIC B Ot J44.9 CHRONIC OBSTRUCTIVE PULMONARY DISEASE, U 02/08/2018 KEIRA CINTRON DOIC B Ot K20.9 ESOPHAGITIS, UNSPECIFIED 02/08/2018 KEIRA CINTRON DOIC B Ot K21.9 GASTRO-ESOPHAGEAL REFLUX DISEASE WITHOUT 02/08/2018 KEIRA CINTRON DOIC B Ot K29.70 GASTRITIS, UNSPECIFIED, WITHOUT BLEEDING 02/08/2018 KEIRA CINTRON DOIC B Ot K31.7 POLYP OF STOMACH AND DUODENUM 02/08/2018 KEIRA CINTRON DOIC B Ot K44.9 DIAPHRAGMATIC HERNIA WITHOUT OBSTRUCTION 02/08/2018 KEIRA CINTRON DOIC B Ot Z79.899 OTHER GROUP HOME (CURRENT) DRUG THERAPY 02/14/2018 SATISH MIRELES FLORAL ASSOCIATE Ot K31.89 OTHER DISEASES OF STOMACH AND DUODENUM 02/14/2018 SATISH MIRELES FLORAL ASSOCIATE Ot K57.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/O PERFORATION OR AB 02/14/2018 SATISH MIRELES FLORAL ASSOCIATE Ot K59.00 CONSTIPATION, UNSPECIFIED 02/17/2018 KEIRA CINTRON DOIC B Ot E78.5 HYPERLIPIDEMIA, UNSPECIFIED 02/17/2018 TAISHA CINTRON DO B Ot F17.200 NICOTINE DEPENDENCE, UNSPECIFIED, UNCOMP 02/17/2018 TAISHA CINTRON DO B Ot F32.9 MAJOR DEPRESSIVE DISORDER, SINGLE EPISOD 02/17/2018 KEIRA CINTRON DOIC B Ot G62.9 POLYNEUROPATHY, UNSPECIFIED 02/17/2018 ABDULAZIZ AGUILA TAISHA B Ot I10 ESSENTIAL (PRIMARY) HYPERTENSION 02/17/2018 KEIRA CINTRON DOIC B Ot 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 AFFECT 02/17/2018 ABDULAZIZ AGUILA TAISHA B Ot J44.9 CHRONIC OBSTRUCTIVE PULMONARY DISEASE, U 02/17/2018 ABDULAZIZ AGUILA TAISHA B Ot K20.9 ESOPHAGITIS, UNSPECIFIED 02/17/2018 TAISHA CINTRON DO Ot K21.9 GASTRO-ESOPHAGEAL REFLUX DISEASE WITHOUT 02/17/2018 TAISHA CINTRON DO Ot K29.70 GASTRITIS, UNSPECIFIED, WITHOUT BLEEDING 02/17/2018 TAISHA CINTRON DO Ot K31.7 POLYP OF STOMACH AND DUODENUM 02/17/2018 KEIRA CINTRON DOIC Raghavendra Ot K44.9 DIAPHRAGMATIC HERNIA WITHOUT OBSTRUCTION 02/17/2018 TAISHA CINTRON DO Ot Z79.899 OTHER GROUP HOME (CURRENT) DRUG THERAPY 02/18/2018 ABDULAZIZ AGUILA TAISHA Raghavendra Ot Z01.818 ENCOUNTER FOR OTHER PREPROCEDURAL EXAMIN 02/19/2018 ABDULAZIZ AGUILA TAISHA B Ot Z01.818 ENCOUNTER FOR OTHER PREPROCEDURAL EXAMIN Procedures Code Description Performed By Performed On [...] DUODENAL BLEEDING 08/29/2014 93.89 REHABILITATION NEC 09/03/2014 28539 Office/outpatient visit; established patient, level 1 04/27/2015 76473 Office/outpatient visit; established patient, level 4 04/28/2015 03376 Office/outpatient visit; established patient, level 4 05/05/2015 34741 Office/outpatient visit; established patient, level 4 05/12/2015 91357 DRAWING AND HANDLING - VENOUS 01/03/2017 67644 NEW COMPREHENSIVE 01/03/2017 72734 EST EXPANDED PROBLEM FOCUSED 02/01/2017 Results Test Result Range URINALYSIS - 04/18/14 20:05 SPECIFIC GRAVITY 1.010 COLOR YELLOW YELLOW [...] Status Pt. Type Provider Facility Loc./Unit Complaint [id number] 08/03/2017 20:01:02 ACT Unknown [id number] 01/20/2015 19:31:00 01/20/2015 23:59:59 CLS Preadmit [facility] L.ER [id number] 05/06/2014 04:50:00 05/07/2014 17:00:00 DIS Inpatient Andre ROMERO, [facility] W.4CE [id number] 02/14/2013 15:39:00 02/14/2013 18:02:00 DIS [facility] [id number] 02/13/2013 23:03:00 02/13/2013 23:50:00 DIS Emergency Christina [facility] W.EDW [id number] 06/27/2015 18:41:00 06/27/2015 21:10:00 DIS ER VICTOR MANUEL ROMERO, [facility] [id number] 06/16/2015 20:04:00 Document Registration [id number] 08/07/2011 23:15:00 Document Registration [id number] 11/15/2014 19:21:00 11/15/2014 23:59:59 CLS Preadmit [facility] L.ER [id number] 05/12/2015 15:08:03 05/12/2015 15:57:43 DIS Outpatient Oswaldo ROMERO, [facility] [id number] 10/23/2015 20:05:00 10/23/2015 23:59:59 CLS Preadmit [facility] L.ER [id number] 06/18/2015 18:05:00 06/18/2015 23:59:59 CLS Preadmit [facility].ER [id number] 07/26/2017 10:45:00 08/02/2017 10:44:00 DIS Inpatient Johnny Hurtado [facility] BOZENA [id number] 07/26/2017 11:06:07 Document Registration [id number] 05/19/2015 01:35:00 05/19/2015 23:59:59 CLS Preadmit [facility] ED [id number] 04/26/2016 13:15:00 04/26/2016 23:59:59 CLS Outpatient ALBA COLLINS DO [facility] [id number] 07/28/2015 08:56:03 07/28/2015 08:56:03 Outpatient [id number] 07/28/2015 08:53:36 07/28/2015 08:53:36 Outpatient [id number] 07/28/2015 08:11:59 07/28/2015 08:12:00 Outpatient [id number] 11/13/2014 20:58:00 11/13/2014 23:59:59 CLS [facility]readmit [facility] L.ER [id number] 06/10/2013 10:56:00 06/10/2013 12:34:00 DIS Emergency Alvarez Hunt MD [facility] [id number] 05/28/2013 12:17:00 05/28/2013 23:59:59 CLS Outpatient Estevan Wilkinson MD [facility] [id number] 05/27/2013 22:05:00 05/28/2013 00:20:00 DIS Emergency Reginaldo Oliveira DO [facility] [id number] 04/30/2013 03:26:00 04/30/2013 04:17:00 DIS Emergency Falguni Edmond MD [facility] [id number] 04/28/2013 11:51:00 04/28/2013 13:25:00 DIS Emergency Jay Zuniga MD [facility] [id number] 05/28/2013 12:28:00 Document Registration [id number] 06/18/2015 18:05:00 06/18/2015 23:59:59 CLS Preadmit L.ER [id number] 12/25/2015 19:53:00 12/25/2015 23:59:59 CLS Preadmit [facility] L.ER [id number] 06/23/2013 18:31:00 06/23/2013 23:59:59 CLS Outpatient [id number] 05/30/2013 15:27:00 05/30/2013 23:59:59 CLS Outpatient [id number] 05/16/2013 13:57:00 05/16/2013 23:59:59 CLS Outpatient [id number] 05/14/2013 17:09:00 05/14/2013 23:59:59 CLS Outpatient [id number] 04/18/2013 14:40:00 04/18/2013 23:59:59 CLS Outpatient [id number] 06/29/2015 18:15:00 06/29/2015 20:01:00 DIS KEIRA MORELAND MD, SHADY SommersER [id number] 06/18/2015 18:05:00 06/18/2015 22:05:00 DIS ER VASILE BECKWITH PA-CER [id number] 06/16/2015 20:35:00 06/17/2015 09:40:00 DIS KEIRA MORELAND MD, SHADY SommersMOO [id number] 06/16/2015 20:04:00 Document Registration [id number] 06/16/2015 20:04:00 Document Registration [id number] 12/23/2015 19:39:00 12/23/2015 23:59:59 CLS [facility]readmit [facility] L.ER [id number] 06/08/2017 23:00:00 06/08/2017 23:59:59 DIS Outpatient FALGUNI HAMILTON [facility] [id number] 03/13/2017 18:24:00 ACT JAY GILLIAM [facility] unknown [id number] 10/02/2015 20:52:00 10/02/2015 20:52:00 CAN Emergency [facility] L.ER [id number] 03/07/2015 22:00:00 03/07/2015 23:59:59 CLS Preadmit [facility] L.ER [id number] 08/29/2014 10:20:00 08/29/2014 23:59:59 CLS Preadmit [facility] L.[facility] [id number] 06/27/2015 18:37:00 06/27/2015 23:59:59 CLS Preadmit [facility] ED [id number] 02/19/2016 12:04:00 02/19/2016 14:09:00 DIS Emergency PAIGE ROMERO, JARETT [facility] ED INJURY [id number] 10/26/2015 20:09:00 10/26/2015 22:19:00 DIS Emergency NICKOLAS ROMERO, [facility] ED [id number] 07/28/2015 13:23:00 07/28/2015 15:32:00 DIS Emergency MAYRA ROMERO, [facility] ED [id number] 07/01/2015 11:53:00 07/01/2015 13:03:00 DIS Emergency MAYRA ROMERO, [facility] ED [id number] 06/16/2015 13:51:00 06/16/2015 15:09:00 DIS [facility] [id number] 05/19/2015 20:26:00 05/19/2015 22:25:00 DIS Emergency NICKOLAS ROMERO, [facility] ED [id number] 04/30/2015 12:02:00 04/30/2015 23:59:59 CLS Outpatient OSWALDO ROMERO, [facility] RAD RETROGRADE AMNESIA - R41.2 [id number] 04/26/2015 12:21:00 04/26/2015 13:25:00 DIS [id number] 05/08/2014 21:13:00 05/08/2014 23:59:59 CLS Outpatient [facility] EMS ALS ASSIST FROM [place] TO REPLACED BY [facility] [id number] 10/09/2013 22:42:00 10/09/2013 23:30:00 DIS Emergency DELANEY ROMERO, LUZ [facility] ED [id number] 09/01/2013 13:10:00 09/01/2013 14:26:00 DIS Emergency DENEEN AGUILA [facility] ED [id number] 07/20/2013 18:25:00 07/20/2013 18:56:00 DIS Emergency JADEN ROMERO, CHRISTOPHER [facility] ED [id number] 07/14/2013 20:33:00 07/14/2013 23:09:00 [facility] [id number] 06/21/2013 21:25:00 06/21/2013 22:13:00 DIS Emergency NICKOLAS ROMERO, [facility] ED [id number] 04/28/2013 21:21:00 04/28/2013 22:23:00 DIS Emergency DELANEY ROMERO, LUZ [facility] ED [id number] 04/15/2013 15:15:00 04/15/2013 16:08:00 DIS Emergency DENEEN AGUILA, [facility] ED [id number] 04/03/2013 03:05:00 04/03/2013 03:56:00 DIS Emergency NICKOLAS ROMERO, [facility] ED [id number] 09/26/2015 21:24:00 Document Registration [id number] 06/11/2014 08:20:00 Document Registration [id number] 06/03/2014 15:28:00 Document Registration [id number] 09/20/2014 20:59:00 09/20/2014 23:59:59 [id number] 01/20/2015 19:15:00 01/20/2015 23:59:59 CLS Preadmit [facility] [id number] 08/03/2017 19:57:55 ACT Document Registration [id number] 12/21/2016 21:04:00 12/21/2016 23:59:59 CLS Preadmit [facility] ED [id number] 08/29/2015 21:21:00 08/29/2015 23:59:59 [id number] 11/18/2015 22:14:00 11/18/2015 23:59:59 [facility] [id number] 06/27/2015 18:37:00 06/27/2015 23:59:59 CLS Preadmit ED [id number] 02/18/2018 05:50:00 02/18/2018 13:00:00 DIS Outpatient TAISHA CINTRON DO [facility] PREOP COLONOSCOPY [id number] 02/04/2018 11:55:00 02/04/2018 15:30:00 DIS Outpatient TAISHA CINTRON DO [facility] ENDO GASTRITIS [id number] 02/01/2018 05:42:00 02/01/2018 11:10:00 DIS Outpatient TAISHA CINTRON DO [facility] PREOP EGD [id number] 01/16/2018 08:08:00 01/16/2018 23:59:59 CLS Outpatient SATISH MIRELES [employer] [facility] RAD ABD PAIN [id number] 02/22/2018 14:05:00 PEN Preadmit TAISHA CINTRON DO B [facility] ENDO ABD PAIN [id number] 02/01/2017 10:50:00 02/01/2017 23:59:59 CLS Outpatient [facility] [id number] 01/03/2017 10:30:00 01/03/2017 23:59:59 CLS Outpatient [facility] [id number] 02/07/2017 20:21:00 Document Registration [id number] 02/02/2017 15:51:00 Document Registration [id number] 02/01/2017 19:41:00 Document Registration [id number] 2017 23:14:00 Document Registration [id number] 10/05/2016 09:18:00 10/05/2016 13:10:00 DIS Emergency Candelario ROMERO, [facility] EED [id number] 02/05/2017 17:20:00 02/05/2017 20:10:00 DIS Outpatient LUIS ROMERO, WEI [facility] 1S [id number] 12/21/2016 21:07:00 12/22/2016 01:11:00 DIS Emergency HARLEY ROMERO, [facility] ED [id number] 11/08/2016 20:46:00 11/09/2016 04:56:00 DIS Inpatient DAVE JARVIS DO [facility] 1SOU [id number] 10/09/2016 12:29:00 10/09/2016 14:29:00 DIS Emergency HARLEY ROMERO, [facility] ED [id number] 06/24/2016 21:30:00 06/25/2016 08:35:00 DIS Inpatient NIKITA ROMERO, NOÉ Dugan [facility] 1SOU [id number] 05/26/2016 21:05:00 05/31/2016 13:23:00 DIS Inpatient TRENT SOLITARIO MD, MITZI [facility] 5SUR W [id number] 05/29/2016 14:39:00 05/29/2016 23:59:59 CLS Preadmit DEBORAH ROMERO, STEVEN Castro [id number] 04/07/2016 10:06:00 04/07/2016 23:59:00 DIS Outpatient KARINA [facility] LAB [id number] 04/07/2016 10:05:00 04/07/2016 23:59:00 DIS Outpatient KARINA [facility] XRAY [id number] 03/31/2016 13:23:00 03/31/2016 23:59:00 DIS Outpatient KARINA [facility] IC [id number] 01/24/2016 20:45:00 01/25/2016 01:56:00 DIS Inpatient SIMONAIMAN CROCKETT DOIR [facility] 1SOU [id number] 01/21/2016 18:39:00 01/21/2016 20:36:00 DIS Emergency LUIS ROMERO, WEI [facility] ED [id number] 01/20/2016 10:00:00 01/20/2016 23:59:[address] DO [facility] NICL [id number] 12/21/2015 16:48:00 12/21/2015 22:04:00 DIS Emergency BALAJI FUNES MD [facility] ED [id number] 11/19/2015 20:44:00 11/23/2015 16:45:00 DIS Inpatient DEBORAH ROMERO, STEVEN Castro [facility] [id number] 06/27/2015 18:41:00 06/27/2015 21:10:00 DIS Emergency VICTOR MANUEL ROMERO, JARETT [facility] ED [id number] 05/19/2015 01:37:00 05/19/2015 02:21:00 DIS Emergency NIKITA ROMERO, NOÉ Dugan [facility] ED [id number] 12/28/2014 12:04:00 12/28/2014 23:59:00 DIS Outpatient SARAHI MERCEDES DOA Otf [facility] XRAY [id number] 12/28/2014 13:00:00 12/28/2014 13:00:00 CAN Preadmit MAGOFRANCHESCA AGUILA, MARVIN [facility] INFU TH [id number] 09/03/2014 12:43:00 09/08/2014 10:22:00 DIS Inpatient EDDA ROMERO, JASBIR Priest [facility] REHAB [id number] 08/29/2014 14:14:00 09/03/2014 12:18:00 DIS Inpatient RITA ROMERO, SABINA Ferro [facility] 4MED W [id number] 08/29/2014 11:56:00 Document Registration [id number] 07/09/2014 22:32:00 Document Registration [id number] 06/18/2014 09:38:00 Document Registration [id number] 06/11/2014 17:40:00 Document Registration [id number] 05/24/2014 13:19:00 Document Registration [id number] 05/05/2014 22:51:00 Document Registration [id number] 09/01/2013 18:08:00 Document Registration [id number] 07/21/2013 00:26:00 Document Registration [id number] 07/15/2013 14:40:00 Document Registration [id number] 06/19/2012 01:40:00 Document Registration [id number] 05/15/2012 13:52:00 Document Registration [id number] 03/29/2012 09:05:00 Document Registration [id number] 01/18/2012 23:16:00 Document Registration [id number] 12/20/2011 15:24:00 Document Registration [id number] 12/12/2011 00:47:00 Document Registration [id number] 09/02/2011 03:43:00 Document Registration [id number] 08/07/2011 23:15:00 Document Registration [id number] 08/07/2011 00:32:00 Document Registration [id number] 08/04/2011 03:31:00 Document Registration [id number] 04/28/2011 00:17:00 Document Registration [id number] 03/04/2011 02:21:00 Document Registration [id number] 12/08/2010 00:14:00 Document Registration [id number] 11/19/2010 01:03:00 Document Registration [id number] 09/27/2010 19:44:00 Document Registration [id number] 09/05/2010 21:53:00 Document Registration [id number] 08/27/2010 00:38:00 Document Registration [id number] 07/26/2010 21:56:00 Document Registration [id number] 07/17/2010 02:10:00 Document Registration [id number] 06/24/2010 00:46:00 Document Registration [id number] 04/27/2010 19:46:00 Document Registration [id number] 02/08/2010 15:04:00 Document Registration [id number] 02/07/2010 18:55:00 Document Registration [id number] 01/29/2010 19:51:00 Document Registration [id number] 01/11/2010 16:44:00 Document Registration [id number] 11/27/2009 14:35:00 Document Registration [id number] 10/20/2009 09:45:00 Document Registration [id number] 10/15/2009 17:15:00 Document Registration [id number] 09/12/2009 20:52:00 Document Registration [id number] 08/30/2009 19:09:00 Document Registration [id number] 08/22/2009 12:56:00 Document Registration [id number] 06/23/2009 17:08:00 Document Registration [id number] 01/22/2009 18:54:00 Document Registration [id number] 12/15/2008 16:50:00 Document Registration [id number] 09/14/2008 10:51:00 Document Registration [id number] 09/02/2008 21:06:00 Document Registration [id number] 08/28/2008 21:22:00 Document Registration [id number] 07/20/2008 10:04:00 Document Registration [id number] 07/11/2008 19:16:00 Document Registration [id number] 06/30/2008 19:32:00 Document Registration [id number] 06/13/2008 13:53:00 Document Registration [id number] 05/15/2008 20:46:00 Document Registration [id number] 05/12/2008 13:53:00 Document Registration [id number] 03/12/2008 19:30:00 Document Registration [id number] 02/16/2008 00:10:00 Document Registration [id number] 01/27/2008 15:56:00 Document Registration [id number] 01/01/2008 13:50:00 Document Registration [id number] 09/13/2007 17:59:00 Document Registration [id number] 06/30/2007 19:57:00 Document Registration [id number] 05/23/2015 19:57:00 05/23/2015 23:59:59 CLS Preadmit [facility] [id number] 05/19/2014 11:22:05 05/19/2014 23:59:59 CLS Outpatient Shady Burrell [id number] 04/28/2014 14:41:12 04/28/2014 23:59:59 CLS Outpatient Shady Burrell [id number] 01/26/2014 14:31:13 01/26/2014 23:59:59 CLS Outpatient Shady Burrell [id number] 12/23/2013 14:08:54 12/23/2013 23:59:59 CLS Outpatient Mayr Torres [id number] 10/24/2013 15:36:16 10/24/2013 23:59:59 CLS Outpatient Shady Burrell [id number] 01/07/2018 14:42:12 01/07/2018 23:59:59 CLS Outpatient Satish Mireles [id number] 10/15/2017 08:38:26 10/15/2017 23:59:59 CLS Outpatient Marco Munoz [id number] 08/09/2017 14:31:36 08/09/2017 23:59:59 CLS Outpatient Marco Munoz [id number] 06/26/2017 10:37:35 06/26/2017 23:59:59 CLS Outpatient Marco Munoz [id number] 05/25/2017 16:53:38 05/25/2017 23:59:59 CLS Outpatient Marco Munoz [id number] 02/14/2017 10:22:43 02/14/2017 23:59:59 CLS Outpatient Marco Munoz [id number] 12/21/2015 16:42:00 12/21/2015 23:59:59 CLS Preadmit [facility] ED [id number] 02/07/2017 11:45:00 02/13/2017 11:10:00 DIS Inpatient GILLIAN ROMERO, [facility] [id number] 12/01/2016 03:20:00 12/14/2016 11:10:00 DIS Inpatient GILLIAN ROMERO, [facility] [id number] 11/09/2016 07:50:00 11/22/2016 14:45:00 DIS Inpatient GILLIAN ROMERO, [facility] [id number] 06/25/2016 11:55:00 07/06/2016 15:30:00 DIS Inpatient GILLIAN ROMERO, [facility] [id number] 02/13/2015 22:05:00 02/13/2015 23:59:59 CLS Preadmit [facility] L.ER [id number] 08/28/2015 21:00:00 08/28/2015 23:59:59 CLS Preadmit [facility] L.ER [id number] 05/31/2016 13:50:00 06/14/2016 12:30:00 DIS Inpatient STEVEN ROMERO, ROMAINE [facility] BOZENA [id number] 06/01/2016 15:10:00 06/03/2016 13:20:00 DIS Inpatient JANI ROMERO, [facility] ICU [id number] 06/24/2016 20:10:00 06/24/2016 23:59:59 CLS Preadmit [facility] ED [id number] 03/05/2015 23:03:00 03/05/2015 23:59:59 CLS Preadmit [facility] L.ER [id number] 07/26/2017 10:45:00 Document Registration [id number] 11/08/2016 17:33:00 11/08/2016 23:59:59 CLS Preadmit [facility] L.ER [id number] 01/21/2016 18:37:00 01/21/2016 23:59:59 CLS Preadmit [facility] ED [id number] 11/30/2016 18:55:00 12/01/2016 00:30:00 DIS Emergency VASILE BECKWITH PA-C [facility] L.ER [id number] 11/08/2016 17:33:00 11/08/2016 18:50:00 DIS Emergency SOPHIE DISLA [facility] L.ER [id number] 11/07/2016 18:02:00 11/07/2016 18:02:00 CAN Preadmit CRISTIAN COCHRAN [facility] L.ER [id number] 10/17/2016 22:21:00 10/18/2016 00:14:00 DIS Emergency RASHMI REINA [facility] L.ER [id number] 08/22/2016 10:31:00 08/22/2016 23:59:00 DIS Outpatient [facility] L.NPLAB [id number] 08/18/2016 08:29:00 08/18/2016 23:59:00 DIS CLI [facility] L.LAB [id number] 08/18/2016 08:28:00 08/18/2016 08:28:00 CAN Preadmit [facility] L.[place] [id number] 06/12/2016 07:00:00 06/12/2016 23:59:59 CLS Preadmit [facility] L.LAB [id number] 05/26/2016 19:40:00 05/26/2016 23:59:00 DIS ER MANUELA WILBURN FLORAL ASSOCIATE [facility] L.ER [id number] 02/04/2016 08:22:00 02/04/2016 23:59:00 DIS Outpatient [facility] L. [id number] 01/19/2016 07:47:00 01/19/2016 23:59:00 DIS Outpatient [facility] L.LAB [id number] 01/06/2016 09:50:00 01/06/2016 23:59:00 [facility] [id number] 12/27/2015 07:53:00 12/27/2015 23:59:00 DIS Outpatient [facility] L.LAB [id number] 12/25/2015 19:53:00 12/25/2015 21:35:00 DIS Emergency KULWANT GARCIA [facility] L.ER [id number] 12/23/2015 19:39:00 12/23/2015 22:10:00 DIS Emergency VASILE BECKWITH PA-C [facility] L.ER [id number] 11/18/2015 22:15:00 11/19/2015 17:02:00 DIS Emergency JOSE ROMERO, JOEY Bond [facility] L.ER [id number] 10/23/2015 20:12:00 10/23/2015 21:43:00 DIS Emergency MANUELA WILBURN FLORAL ASSOCIATE [facility] L.ER [id number] 10/02/2015 20:52:00 10/02/2015 21:20:00 DIS Emergency FRANCESCA ROMERO, DANI Tenorio [facility] L.ER [id number] 08/29/2015 21:22:00 08/30/2015 04:55:00 DIS Emergency VASILE BECKWITH PA-C [facility] L.ER [id number] 08/28/2015 21:00:00 08/28/2015 21:50:00 DIS Emergency MANUELA WILBURN FLORAL ASSOCIATE [facility] L.ER [id number] 08/27/2015 18:47:00 08/27/2015 20:40:00 DIS Emergency VASILE BECKWITH PA-C [facility] L.ER [id number] 06/29/2015 18:15:00 06/29/2015 20:01:00 DIS Emergency MERLY ROMERO, [facility] L.ER [id number] 06/18/2015 18:05:00 06/18/2015 22:05:00 DIS Emergency VASILE BECKWITH PA-C [facility] L.ER [id number] 06/16/2015 20:35:00 06/17/2015 09:40:00 DIS Inpatient MERLY ROMERO, [facility] L.MOO [id number] 05/23/2015 19:57:00 05/23/2015 20:35:00 DIS Emergency REGINALDO THAYER [facility] L.ER [id number] 05/11/2015 21:48:00 05/11/2015 23:52:00 DIS Emergency OSWALDO ROMERO, [facility] L.ER [id number] 04/28/2015 08:05:00 04/28/2015 23:59:00 DIS Outpatient MERLY ROMERO, [facility] L.LAB [id number] 04/21/2015 09:41:00 04/21/2015 23:59:00 DIS Outpatient OSWALDO ROMERO, [facility] L.LAB [id number] 04/19/2015 19:53:00 04/19/2015 20:40:00 DIS Emergency FRANCESCA ROMERO, DANI [facility] L.ER [id number] 03/07/2015 22:00:00 03/07/2015 23:25:00 DIS Emergency VASILE BECKWITH PA-C [facility] L.ER [id number] 03/05/2015 23:03:00 03/06/2015 00:21:00 DIS Emergency VASILE BECKWITH PA-C [facility] L.ER [id number] 02/27/2015 17:47:00 02/27/2015 23:59:00 DIS Outpatient [facility] L. [id number] 02/13/2015 22:05:00 02/14/2015 00:42:00 DIS Emergency [facility] L. [id number] 02/03/2015 09:57:00 02/03/2015 23:59:00 DIS Outpatient SHADY MORELAND MD [facility] [id number] 01/20/2015 19:33:00 01/20/2015 20:40:00 DIS Emergency MAGO [facility] L. [id number] 01/14/2015 12:00:00 01/14/2015 23:59:00 DIS Outpatient [facility] [id number] 12/31/2014 09:40:00 12/31/2014 23:59:00 DIS CLI.APC [facility] L. [id number] 12/23/2014 09:30:00 12/23/2014 09:30:00 CAN Preadmit [facility] L.MA [id number] 12/21/2014 10:26:00 12/21/2014 23:59:00 DIS [id number] 12/11/2014 14:20:00 12/11/2014 23:59:00 DIS CLI.APC [facility] L. [id number] 11/26/2014 11:20:00 11/26/2014 12:20:00 [facility] [id number] 11/16/2014 10:53:00 11/16/2014 23:59:00 DIS Outpatient [facility] L. [id number] 11/15/2014 19:26:00 11/15/2014 20:56:00 DIS Emergency MANUELA WILBURN [facility] L.ER [id number] 11/13/2014 20:58:00 11/13/2014 22:29:00 DIS Emergency SOPHIE DISLA [facility] L.ER [id number] 10/19/2014 10:42:00 10/19/2014 23:59:00 DIS Outpatient MAGO DO, [facility] L. [id number] 10/16/2014 14:12:00 10/16/2014 23:59:00 [facility] [id number] 09/21/2014 10:31:00 09/21/2014 23:59:00 [facility] [id number] 09/20/2014 21:10:00 09/20/2014 23:17:00 DIS Emergency VASILE BECKWITH PA-C [facility] L.ER [id number] 09/01/2014 13:30:00 09/01/2014 13:30:00 CAN Outpatient JACK ROMERO, JARETT Bond [facility] L. [id number] 08/29/2014 10:20:00 08/29/2014 13:00:00 DIS Emergency AKILA [facility] L.ER [id number] 05/26/2016 20:36:00 Document Registration [id number] 05/26/2016 20:36:00 Document Registration [id number] 05/26/2016 20:36:00 Document Registration [id number] 05/26/2016 20:36:00 Document Registration [id number] 05/26/2016 20:36:00 Document Registration [id number] 05/26/2016 20:36:00 Document Registration [id number] 06/16/2015 20:04:00 Document Registration [id number] 08/10/2014 13:51:00 Document Registration [id number] 07/21/2014 15:52:00 Document Registration [id number] 07/03/2014 10:57:00 Document Registration [id number] 06/01/2014 13:00:00 Document Registration [id number] 12/25/2013 20:06:00 Document Registration [id number] 10/09/2013 23:52:00 Document Registration [id number] 08/20/2013 21:40:00 Document Registration [id number] 08/19/2013 18:45:00 Document Registration [id number] 07/20/2013 21:32:00 Document Registration [id number] 07/15/2013 21:25:00 Document Registration [id number] 06/23/2013 21:57:00 Document Registration [id number] 04/25/2016 09:27:00 04/25/2016 09:27:00 DIS Outpatient [facility] [id number] 02/29/2016 14:55:00 02/29/2016 14:55:00 DIS Outpatient [facility] [id number] 11/05/2015 14:42:00 11/05/2015 14:42:00 DIS Outpatient [facility] [id number] 05/24/2015 14:12:00 05/24/2015 14:12:00 DIS Outpatient [facility] [id number] 07/25/2013 12:44:00 08/01/2013 09:48:00 DIS Inpatient [facility]
--- NOTE | 2018-02-22 15:02 | Progress Note-Post Operative ---
Post-Operative Progess Note Surgeon (s)/Forest Logistics Manager (s) Surgeon TAISHA CINTRON DO Forest Logistics Manager: none Pre-Operative Diagnosis Abdominal pain Post-Operative Diagnosis Colon Polyps Diverticula Int hemorrhoids Procedure & Operative Findings Date of Procedure 02/22/18 Procedure Performed/Findings Colon with snare Colon with hot bx Anesthesia Type IV sedation by MATERIAL CONTROLLER Estimated Blood Loss Estimated blood loss (mL): scant Specimens/Packing Specimens Removed Multiple colon polyps TAISHA CINTRON DO Feb 22, 2018 15:02
--- NOTE | 2018-02-22 15:02 | Anesthesia-General Post-Op ---
MAC Patient Condition Mental Status/LOC: Same as Preop Cardiovascular: Satisfactory Nausea/Vomiting: Absent Respiratory: Satisfactory Pain: Controlled Complications: Absent Post Op Complications Complications None Follow Up Care/Instructions Patient Instructions None needed. Anesthesiology Discharge Order Discharge Order Patient is doing well, no complaints, stable vital signs, no apparent adverse anesthesia problems. No complications reported per nursing. ROBE BRITO CRNA Feb 22, 2018 15:02
--- NOTE | 2018-02-22 15:03 | Endoscopy Discharge Instruct ---
Endo Procedure/Findings Findings 1.: Polyp 2.: Diverticulosis 3.: Internal Hemorrhoids Discharge Instructions - Activity: You might feel a little sleepy until tomorrow. This is due to the medicine you received to relax you. Until tomorrow, you should: NOT drive a car, operate machinery or power tools. NOT drink any alcoholic beverages. NOT make any important decisions or sign importortant papers. Do not return to work until tomorrow, unless otherwise instructed. Resume previous activities tomorrow. Diet: Start by taking liquids. If you tolerate liquids, advance to solid food. make an appointment for one week Instructions: 1.: Colonoscopy in 1 year Notify Physician - If you experience excessive bleeding, unusual abdominal pain, fever, or chest pain, contact your doctor immediately. Follow-Up: - I have received and understand the above instructions and will call my doctor if I have any further questions. Patient Signature Date Nurse Signature Other (Relationship) TAISHA CINTRON DO Feb 22, 2018 15:03
[2018-02-22 15:15] VITALS: BP 128/72
[2018-02-22 15:45] VITALS: BP 147/75
--- NOTE | 2018-02-23 01:07 | OPERATIVE REPORT ---
DATE OF SERVICE: PREOPERATIVE DIAGNOSIS: Abdominal pain. POSTOPERATIVE DIAGNOSES: 1. Multiple colon polyps. 2. Diverticula. 3. Internal hemorrhoids. 4. Abdominal pain. PROCEDURES: 1. Colonoscopy with snare polypectomy. 2. Colonoscopy with hot biopsy. SURGEON: Munir Sheikh DO. BIOLOGY TEACHER: None. ANESTHESIA: IV sedation by the PILOT FUEL ENGINEER. BLOOD LOSS: Scant. FLUIDS: Per anesthesia. SPECIMEN: Three polyps from the sigmoid colon, two from the cecum, one from the descending colon and one from the ascending colon as well as a hot biopsy from the cecum. INDICATION FOR PROCEDURE: The patient is a 73-year-old male who has been having some abdominal pain and workup up to now has been negative and needed a colonoscopy. FINDINGS: The patient had multiple polyps removed and some flat polyps. He has had large diverticula in the sigmoid and descending colon and some very minimal internal hemorrhoids. PROCEDURE NOTE: After informed consent was obtained, the patient was brought to the endoscopy suite, placed in the bed in left lateral decubitus position. He was administered IV sedation by the PILOT FUEL ENGINEER who then monitored his vitals the entire time, heart rate, blood pressure and pulse ox and the scope was inserted, pushed in and on the way in noted large diverticula, took a picture of this and then saw polyp in the descending colon and a snare polypectomy of this and continued down to continue for up towards the cecum and in the ascending colon, saw another small polyp, did a snare polypectomy of this and pushed into the cecum and the cecum saw a flat polyp looked vascular, so did a hot biopsy of this and this was sent to pathology and then just on the other side and the cecum saw another couple of polyps snare polypectomies and then slowly withdrew the scope insufflating to look circumferentially at the dawkins looking at the cecum up the ascending colon to the hepatic flexure, then down the transverse colon, the splenic flexure, into the descending colon and down in the sigmoid and the sigmoid saw 2 or 3 polyps, did a snare polypectomy of these and these will be sent to pathology and then retroflexed in rectal vault, saw some internal hemorrhoids, took a picture of this and then removed the scope. The patient tolerated the procedure and recovered in endoscopy suite. Job ID: [id number] DocumentID: [id number] Dictated Date: 02/22/2018 14:56:02 Head Turning Machine Operator Date: 02/23/2018 01:06:26 Dictated By: MUNIR SHEIKH DO
== END 2018-02-22 15:50 | disposition home or self-care (01) ==
LOC: ENDO 11:54
PROVIDERS: ATTEND Surgery
DX: D12.2 Benign neoplasm of ascending colon (principal); K63.5 Polyp of colon; K57.30 Diverticulosis of large intestine without perforation or abscess without bleeding; K64.8 Other hemorrhoids; I10 Essential (primary) hypertension; J44.9 Chronic obstructive pulmonary disease, unspecified; G57.93 Unspecified mononeuropathy of bilateral lower limbs; K21.9 Gastro-esophageal reflux disease without esophagitis; Z79.899 Other long term (current) drug therapy
CPT/HCPCS: 87015; 87045; 87046; 87324; 87328; 87329; 87449; 87899

== ENCOUNTER 2018-03-26 11:15 | Outpatient (CLI) | payer MEDICARE, MEDICAID ==
[~2018-03-26] VITALS: Ht 185.4 cm; Wt 79.8 kg
== END 2018-03-26 11:44 ==
LOC: PREOP 11:15
PROVIDERS: ATTEND Surgery
DX: Z01.818 Encounter for other preprocedural examination (principal)

== ENCOUNTER 2018-03-28 09:34 | Inpatient (IN) | payer MEDICARE, MEDICAID ==
[~2018-03-28] VITALS: Ht 185.4 cm; Wt 82.2 kg
--- OUTSIDE RECORDS SUMMARY | 2018-03-28 10:39 | XMS REPORT | Continuity of Care Document ---
Author Author [facility] Organization [facility] Address Unknown Phone Unavailable Allergies Active Description Code Type Severity Reaction Onset Reported/Identified Relationship to Patient Clinical Status Yes fentaNYL Drug N/A N/A Yes Medrol Dosepak Drug N/A N/A Yes NSAIDs 385 Drug N/A N/A Yes Reglan Drug N/A N/ A Yes Toradol Drug N/A N /A Yes COMPAZINE 175857 Fatal Other (Fatal) Yes FENTANYL 4337 Moderate Hives (Moderate) Yes NSAIDS (NON-STEROIDAL ANTI-INFLAMMATORY DRUG) Severe Other (Severe) Yes REGLAN 9230 N/A N/ A Yes Metoclopramide HCl [id number] Drug Allergy Moderate N/A Yes Morphine Sulfate [id number] Drug Allergy Moderate hives Yes NSAIDs [id number] Drug Allergy Moderate N/A Yes Prochlorperazine 50267897H2 Drug Allergy Moderate N/A Yes FENTANYL UNKNOWN [...] Unknown BLEEDING STOMAC 06/03/2014 Yes METOCLOPRAMIDE HCL [id number] Drug Allergy Moderate N/A 07/10/2014 Yes NSAIDS (NON-STEROIDAL ANTI-INFLAMMA [id number] Drug Allergy Moderate N/A Yes PROCHLORPERAZINE [id number] Drug Allergy Mild N/A 07/10/2014 Yes KETOROLAC TROMETHAMINE [id number] Drug Allergy N/A N/A 07/10/2014 Yes METOCLOPRAMIDE HCL [id number] Drug Allergy Moderate N/A 07/10/2014 Yes NSAIDS (NON-STEROIDAL ANTI-INFLAMMA [id number] Drug Allergy Moderate N/A Yes PROCHLORPERAZINE [id number] Drug Allergy Mild N/A 07/10/2014 Yes KETOROLAC TROMETHAMINE [id number] Drug Allergy N/A N/A 07/10/2014 Yes KETOROLAC TROMETHAMINE [id number] Drug Allergy N/A N/A 07/10/2014 Yes METOCLOPRAMIDE HCL [id number] Drug Allergy Moderate N/A 07/10/2014 Yes NSAIDS (NON-STEROIDAL ANTI-INFLAMMA [id number] Drug Allergy Moderate N/A Yes PROCHLORPERAZINE [id number] Drug Allergy Mild N/A 07/10/2014 Yes KETOROLAC TROMETHAMINE [id number] Drug Allergy N/A N/A 07/10/2014 Yes METOCLOPRAMIDE HCL W678988840 Drug Allergy Moderate N/A 07/10/2014 Yes NSAIDS (NON-STEROIDAL ANTI-INFLAMMA [id number] Drug Allergy Moderate N/A Yes PROCHLORPERAZINE [id number] Drug Allergy Mild N/A 07/10/2014 Yes METOCLOPRAMIDE HCL [id number] Drug Allergy Moderate N/A 07/10/2014 Yes NSAIDS (NON-STEROIDAL ANTI-INFLAMMA [id number] Drug Allergy Moderate N/A Yes MORPHINE [id number] Drug Allergy Mild N/A 07/10/2014 Yes PROCHLORPERAZINE S064100053 Drug Allergy Mild N/A 07/10/2014 Yes KETOROLAC TROMETHAMINE [id number] Drug Allergy N/A N/A 07/10/2014 Yes MORPHINE [id number] Drug Allergy Severe HIVES 06/16/2015 Yes MORPHINE [id number] Drug Allergy Severe HIVES 06/16/2015 Yes MORPHINE S754569449 Drug Allergy Severe HIVES 06/16/2015 Yes MORPHINE [id number] Drug Allergy Severe HIVES 06/16/2015 Yes MORPHINE [id number] Drug Allergy Severe HIVES 06/16/2015 Yes prochlorperazine maleate [id number] Drug Allergy Severe N/A 07/01/2015 Yes metoclopramide HCl X297569778 Drug Allergy Severe N/A 09/27/2015 Yes morphine O586929826 Drug Allergy Severe N/A 09/27/2015 Yes prochlorperazine edisylate C912483877 Drug Allergy Severe N/A 2015 Yes cefazolin F443488857 Drug Allergy Unknown N/A 10/26/2015 Yes ketorolac [id number] Drug Allergy N/A N/A 05/31/2016 Yes metoclopramide A045870100 Drug Allergy N/A N/A 05/31/2016 Yes morphine F450173207 Drug Allergy N/A N/A 05/31/2016 Yes prochlorperazine [id number] Drug Allergy N/A N/A 05/31/2016 Yes aspirin aspirin Drug Allergy Unknown NONE 10/05/2016 Yes metoclopramide HCl metoclopramide HCl Drug Allergy Unknown NONE 2016 Yes morphine morphine Drug Allergy Unknown NONE 10/05/2016 Yes NSAIDS (Non-Steroidal Anti-Inflamma NSAIDS (Non- Steroidal Anti-Inflamma Drug Allergy Unknown NONE 10/05/2016 Yes prochlorperazine edisylate prochlorperazine edisylate Drug Allergy Unknown NONE 10/05/2016 Yes fentanyl [id number] Drug Allergy Unknown N/A 02/04/2018 Yes ketorolac V262966304 Drug Allergy Unknown N/A 02/04/2018 Yes metoclopramide [id number] Drug Allergy Unknown N/A 02/04/2018 Yes morphine A753134129 Drug Allergy Unknown N/A 02/04/2018 Yes NSAIDS (Non-Steroidal Anti-Inflamma [id number] Drug Allergy Unknown N/A Yes NSAIDS (Non-Steroidal Anti-Inflamma V308182636 Drug Allergy Moderate GI UPSET 03/26/2018 Yes fentanyl [id number] Drug Allergy Mild RASH 03/26/2018 Yes ketorolac H043329971 Drug Allergy Mild RASH 03/26/2018 Yes metoclopramide F481905941 Drug Allergy Mild NERVOUSNESS 03/26/2018 Yes morphine [id number] Drug Allergy Mild RASH 03/26/2018 Medications Medication Packaging Start Date Stop Date [...] 07/27/2017 08/25/2017 Daily&0900 MultiVits (Thera M Plus) (dkmqtrta-lthd-ixmjfas) oral tablet TAB 07/27/2017 08/25/2017 Daily&0900 SALINE NASAL MIST LIQ (OCEAN SPRAY) Dose(s) 07/27/2017 08/06/2017 PRN QAM THIAMINE TAB 100 MG (VITAMIN B1) MG 07/27/2017 08/02/2017 Daily&0900 BISACODYL SUPPOS 10 MG (DULCOLAX SUPPOS) MG 07/27/2017 08/26/2017 PRN Daily CYANOCOBALAMIN TAB 1000 MCG (VIT B 12) MCG 07/27/2017 08/02/2017 Daily&0900 NICOTINE PATCH PAT 21 MG (NICODERM) MG 07/27/2017 08/25/2017 Daily&0900 Ktoafkdn-pyuf-tsx-folic acid) tab,CHEWable (Centrum) TAB 07/27/2017 08/25/2017 Daily&0900 SIMVASTATIN TAB 10 MG (ZOCOR) MG 08/06/2017 QPM&2000 OXYCODONE IR TAB 5 MG (OXY IR (IMMEDIATE RELEASE)) MG 07/31/2017 08/07/2017 TID&0800,1400,2000 BUDESONIDE/FORMOTEROL INH 80 /4.5 MCG (SYMBICORT ) PUFFS 07/31/2017 08/07/2017 BID&0800,1999 LACTULOSE SYRUP LIQ 20 GM/30CC (CHRONULAC SYRUP) GM 07/31/2017 08/10/2017 BID&0800,2000 GABAPENTIN TAB 800 MG (NEURONTIN) MG 07/31/2017 08/06/2017 QHS&2100 DULOXETINE CAP 30 MG (CYMBALTA) MG 07/31/2017 08/06/2017 QHS&2100 FAMOTIDINE TAB 20 MG (PEPCID) MG 08/06/2017 QHS&2099 MIRTAZAPINE TAB 15 MG (REMERON) MG 07/31/2017 [...] 08/01/2017 08/07/2017 Daily&0900 MultiVits (Thera M Plus) (adozwxzy-gshb-pemkyng) oral tablet TAB 08/01/2017 08/30/2017 Daily&0900 THIAMINE [...] CONTUSION OF HIP 01/19/2012 Other 959.8 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/SITE NEC 01/19/2012 Other E849.0 ACCIDENT IN HOME 01/19/2012 Other E885.9 FALL FROM SLIPPING, TRIPPING, OR STUMBLING NEC 03/29/2012 Other 496 CHR AIRWAY OBSTRUCT NEC 05/15/2012 Other 401.9 HYPERTENSION NOS 05/15/2012 Other 496 CHR AIRWAY OBSTRUCT NEC 05/15/2012 Other V76.44 SCREEN MAL NEOP-PROSTATE 06/19/2012 Other 338.11 ACUTE PAIN DUE TO TRAUMA 06/19/2012 Other 924.01 CONTUSION OF HIP 06/19/2012 Other 959.8 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/SITE NEC 06/19/2012 Other E849.0 ACCIDENT IN [...] Final 724.2 LUMBAGO 04/28/2013 DELANEY ROMERO, LUZ P Ot 724.2 LUMBAGO 04/30/2013 Falguni Edmond MD [...] Oliveira DO Final 401.9 HYPERTENSION NOS 05/27/2013 Oliveira DO, Reginaldo R Final 496 CHRONIC AIRWAY OBSTR NEC 05/27/2013 Reginaldo Oliveira DO Final 724.5 BACKACHE NOS 05/27/2013 Roxanne AGUILA Reginaldo R External E849.0 HOME ACCIDENTS 05/27/2013 Reginaldo Oliveira [...] Final 724.2 LUMBAGO 06/21/2013 NICKOLAS ROMERO, AWAIS Zapata Ot 724.2 LUMBAGO 06/23/2013 Other 724.2 LUMBAGO 07/14/2013 CARROLL BROTHERS DO Ot 338.29 OTHER CHRONIC PAIN 07/14/2013 CARROLL BROTHERS DO Ot 719.41 JOINT PAIN-SHLDER 07/14/2013 CARROLL BROTHERS DO Ot 724.2 LUMBAGO 07/14/2013 CARROLL BROTHERS DO Ot 923.00 CONTUSION SHOULDER REG 07/14/2013 CARROLL BROTHERS DO Ot 924.01 CONTUSION OF HIP 07/14/2013 CARROLL BROTHERS DO Ot E849.0 ACCIDENT IN HOME 07/14/2013 CARROLL BROTHERS DO Ot E888.9 FALL NOS 07/15/2013 Other 959.09 [...] Ot 881.00 OPEN WOUND OF FOREARM 07/20/2013 JADEN ROMERO, CHRISTOPHER Trejo Ot E000.9 UNSPECIFIED EXTERNAL CAUSE STATUS 07/20/2013 CHRISTOPHER STANLEY MD Ot E029.9 OTHER ACTIVITY 07/20/2013 JADEN ROMERO, CHRISTOPHER Trejo Ot E849.0 ACCIDENT IN HOME 07/20/2013 CHRISTOPHER [...] NOS 07/25/2013 Other 414.01 CORONARY ATHEROSCLEROSIS OF PLATINUM CORONARY VESSEL 07/25/2013 Other 427.61 ATRIAL PREMATURE [...] LESS THAN 19, ADULT 08/01/2013 FALGUNI LING 35098 RECUR DEPR PSYCH-SEVERE 08/13/2013 Other 311 DEPRESSIVE DISORDER NEC 08/13/2013 Other 401.1 BENIGN HYPERTENSION 08/13/2013 Other 496 CHR AIRWAY OBSTRUCT NEC 08/13/2013 Other 530.81 ESOPHAGEAL REFLUX 08/19/2013 Other 719.45 JOINT PAIN-PELVIS 08/19/2013 Other 724.2 LUMBAGO 08/20/2013 Other 724.2 LUMBAGO 08/21/2013 Other 309.0 ADJUSTMENT DISORDER WITH DEPRESSED MOOD 08/21/2013 Other 724.2 LUMBAGO 09/01/2013 DENEEN DOCARROLL Ot 724.2 LUMBAGO 09/01/2013 CARROLL BROTHERS DO [...] P Ot 521.00 UNSPEC DENTAL CARIES 10/09/2013 BALTAZAR MD, LUZ P Ot 525.9 DENTAL DISORDER NOS [...] NEC/NOS 07/21/2014 Other 414.01 CORONARY ATHEROSCLEROSIS OF PLATINUM CORONARY VESSEL 07/21/2014 Other 496 CHR AIRWAY [...] Other 414.00 CORON ATHEROSCLER NOS TYPE VESSEL, PLATINUM OR GRAFT 08/06/2014 Other 427.31 ATRIAL FIBRILLATION [...] SABINA SALINAS MD 414.01 CORONARY ATHEROSCLEROSIS OF PLATINUM CORONARY VESSEL 09/03/2014 SABINA SALINAS MD 427.31 [...] OF OTH ORGAN 09/03/2014 SABINA SALINAS MD V58.61 ANTICOAGULANTS,LT,CURRENT USE 09/03/2014 SABINA [...] JASBIR BAÑUELOS MD 414.01 CORONARY ATHEROSCLEROSIS OF PLATINUM CORONARY VESSEL 09/04/2014 JASBIR BAÑUELOS MD 427.31 ATRIAL FIBRILLATION 09/04/2014 JASBIR BAÑUELOS MD 429.2 ASCVD 09/04/2014 AJSBIR BAÑUELOS MD 438.20 LATE EFF-CEREBR DIS,HEMIPLEGIA AFFECTING UNSPECIFI 09/04/2014 JASBIR BAÑUELOS MD 496 CHR AIRWAY OBSTRUCT NEC 09/04/2014 BAÑUELOS MD, DIRK T A 530.81 ESOPHAGEAL REFLUX 09/04/2014 JASBIR BAÑUELOS [...] 272.4 HYPERLIPIDEMIA NEC/NOS 09/04/2014 JASBIR BAÑUELOS MD A 280.0 CHR BLOOD LOSS ANEMIA 09/04/2014 JASBIR BAÑUELOS MD A 300.00 ANXIETY STATE NOS 09/04/2014 JASBIR BAÑUELOS MD A 311 DEPRESSIVE DISORDER NEC 09/04/2014 JASBIR BAÑUELOS MD A 338.29 OTHER CHRONIC PAIN 09/04/2014 JASBIR BAÑUELOS MD A 401.9 HYPERTENSION NOS 09/04/2014 JASBIR BAÑUELOS MD A 414.01 CORONARY ATHEROSCLEROSIS OF PLATINUM CORONARY VESSEL 09/04/2014 JASBIR BAÑUELOS MD A [...] BAÑUELOS MD Other 414.01 CORONARY ATHEROSCLEROSIS OF PLATINUM CORONARY VESSEL 09/04/2014 JASBIR BAÑUELOS MD Other [...] BAÑUELOS MD Other 414.01 CORONARY ATHEROSCLEROSIS OF PLATINUM CORONARY VESSEL 09/04/2014 JASBIR BAÑUELOS MD Other [...] OBST OTH LUTS 09/04/2014 JASBIR BAÑUELOS MD 724.2 LUMBAGO 09/04/2014 JASBIR BAÑUELOS MD Other V12.51 HX-VENOUS THROMBOSIS EMBOLISM 09/04/2014 JASBIR BAÑUEOLS MD V14.8 HX-DRUG ALLERGY NEC 09/04/2014 JASBIR [...] BAÑUELOS MD Other 414.01 CORONARY ATHEROSCLEROSIS OF PLATINUM CORONARY VESSEL 09/04/2014 JASBIR BAÑUELOS MD 427.31 [...] OBST OTH LUTS 09/04/2014 JASBIR BAÑUELOS MD 724.2 LUMBAGO 09/04/2014 [...] JASBIR BAÑUELOS MD V60.3 PERSON LIVING ALONE 09/08/2014 JASBIR BAÑUELOS MD 272.4 HYPERLIPIDEMIA NEC/NOS 09/08/2014 JASBIR BAÑUELOS MD Other 280.0 CHR BLOOD LOSS ANEMIA 09/08/2014 JASBIR BAÑUELOS MD Other 285.1 AC POSTHEMORRHAG ANEMIA 09/08/2014 JASBIR BAÑUELOS MD Other 300.00 ANXIETY STATE NOS 09/08/2014 JASBIR BAÑUELOS MD 311 DEPRESSIVE DISORDER NEC 09/08/2014 JASBIR BAÑUELOS MD Other 338.29 OTHER CHRONIC PAIN 09/08/2014 JASBIR BAÑUELOS MD Other 401.9 HYPERTENSION NOS 09/08/2014 JASBIR BAÑUELOS MD Other 414.01 CORONARY ATHEROSCLEROSIS OF PLATINUM CORONARY VESSEL 09/08/2014 JASBIR BAÑUELOS MD Other 427.31 ATRIAL FIBRILLATION 09/08/2014 JASBIR BAÑUELOS MD Other 429.2 ASCVD 09/08/2014 JASBIR BAÑUELOS MD Other 438.20 LATE EFF-CEREBR DIS,HEMIPLEGIA AFFECTING UNSPECIFIED SIDE 09/08/2014 JASBIR BAÑUELOS MD Other 496 CHR AIRWAY OBSTRUCT NEC 09/08/2014 JASBIR BAÑUELOS MD 530.81 ESOPHAGEAL REFLUX 09/08/2014 JASBIR BAÑUELOS MD Other 536.8 STOMACH FUNCTION DIS NEC 09/08/2014 JASBIR BAÑUELOS MD Other 600.00 HYPERTROPHY (BENIGN) OF PROSTATE W/O URINARY OBST OTH LUTS 09/08/2014 JASBIR BAÑUELOS MD Other 724.2 LUMBAGO 09/08/2014 JASBIR BAÑUELOS MD Other 799.23 IMPULSIVENESS 09/08/2014 JASBIR BAÑUELOS MD Other 820.8 FX NECK OF FEMUR NOS-CL 09/08/2014 JASBIR BAÑUELOS MD E888.9 FALL NOS 09/08/2014 JASBIR BAÑUELOS MD V12.51 HX-VENOUS THROMBOSIS EMBOLISM 09/08/2014 JASBIR BAÑUELOS MD V14.8 HX-DRUG ALLERGY NEC 09/08/2014 JASBIR BAÑUELOS [...] VEINS UPPER EXT 10/16/2014 MARVIN MERCEDES DO Other 719.45 JOINT PAIN-PELVIS 10/16/2014 MARVIN MERCEDES DO Other 780.79 OTH MALAISE FATIGUE 10/19/2014 MARVIN MERCEDES DO 451.83 PHLEBITIS THROMBOPHLEBITIS,DEEP VEINS UPPER EXT 10/19/2014 MARVIN MERCEDES DO Other 451.83 PHLEBITIS THROMBOPHLEBITIS,DEEP VEINS UPPER EXT 10/19/2014 MARVIN MERCEDES DO Other 451.83 PHLEBITIS THROMBOPHLEBITIS,DEEP VEINS UPPER EXT 11/13/2014 SOPHIE DISLA APRN Other 414.00 CORON ATHEROSCLER NOS TYPE VESSEL, PLATINUM OR GRAFT 11/13/2014 SOPHIE DISLA APRN Other [...] PAIN, UNSPECIFIED SITE 11/16/2014 MARVIN MERCEDES DO Other V58.61 ANTICOAGULANTS,LT,CURRENT USE 11/16/2014 MARVIN MERCEDES DO Other V58.61 ANTICOAGULANTS,LT,CURRENT USE 11/16/2014 MARVIN MERCEDES DO Other 300.02 GENERALIZED ANXIETY DIS 11/16/2014 MARVIN MERCEDES DO Other 724.2 LUMBAGO 11/16/2014 MARVIN MERCEDES DO Other 780.39 OTHER CONVULSIONS 11/16/2014 MARVIN MERCEDES DO Other V58.61 ANTICOAGULANTS,LT,CURRENT USE 11/26/2014 MARVIN MERCEDES DO [...] ABDOMINAL PAIN, RIGHT UPPER QUADRANT 12/29/2014 MARVIN MERCEEDS DO V45.89 POSTSURGICAL STATES NEC 12/31/2014 MARVIN MERCEDES DO 789.01 ABDOMINAL PAIN, RIGHT UPPER QUADRANT 01/14/2015 MARVIN MERCEDES DO K21.9 GASTRO-ESOPHAGEAL REFLUX DISEASE WITHOUT ESOPHAGIT 01/14/2015 MARVIN MERCEDES DO M54.5 LOW BACK PAIN 01/14/2015 MARVIN MERCEDES DO K21.9 GASTRO-ESOPHAGEAL REFLUX DISEASE WITHOUT ESOPHAGITIS 01/14/2015 MARVIN MERCEDES DO M54.5 LOW BACK PAIN 01/20/2015 MARVIN MERECDES DO S79.911A UNSPECIFIED INJURY OF RIGHT HIP, INITIAL ENCOUNTER 01/20/2015 MARVIN MERCEDES DO Otf Other W06.XXXA FALL FROM BED, INITIAL ENCOUNTER 01/20/2015 MARVIN MERCEDES DO Other Y92.092 BEDROOM IN [facility] NON-INSTITUTIONAL RESIDENCE PLACE 02/02/2015 SHADY MORELAND MD Other G45.9 TRANSIENT CEREBRAL ISCHEMIC ATTACK, UNSPECIFIED 02/02/2015 [...] APRN Other R10.84 GENERALIZED ABDOMINAL PAIN 02/14/2015 MANUELA WILBURN APRN Other R11.0 NAUSEA 02/14/2015 MANUELA WILBURN APRN Other R19.7 DIARRHEA, UNSPECIFIED 02/16/2015 Oswaldo ROMERO, Lizbeth F 435.9 TIA 02/27/2015 MANUELA WILBURN APRN Other M54.5 LOW BACK PAIN 03/06/2015 VASILE BECKWITH PA-C Other S79.911A UNSPECIFIED INJURY OF RIGHT HIP, INITIAL ENCOUNTER 03/06/2015 VASILE BECKWITH PA-C Other W18.30XA FALL ON SAME LEVEL, UNSPECIFIED, INITIAL ENCOUNTER 03/06/2015 VASILE BECKWITH PA-C Other Y92.[address] IN [facility] NON-INSTITUT (PRIVATE) RESIDENCE PLACE 03/07/2015 VASILE BECKWITHC Other F10.120 ALCOHOL ABUSE WITH INTOXICATION, UNCOMPLICATED 03/07/2015 VASILE BECKWITH PA-C Other M54.9 DORSALGIA, UNSPECIFIED 03/07/2015 VASILE BECKWITHC Other R41.0 DISORIENTATION, UNSPECIFIED 04/19/2015 DANI MA MD Other S39.92XA UNSPECIFIED INJURY OF LOWER BACK, INITIAL ENCOUNTER 04/19/2015 DANI MA MD Other W18.30XA FALL ON SAME LEVEL, UNSPECIFIED, INITIAL ENCOUNTER 04/19/2015 FRANCESCA ROMERO, DANI Tenorio Other Y92.[address] IN SINGLE-FAMILY (PRIVATE) [...] Lizbeth F 305.50 Opiod abuse, NOS 04/26/2015 FIONA RETANA [...] 05/11/2015 LIZBETH COLBERT MD Other Z79.899 OTHER USP (CURRENT) DRUG THERAPY 05/12/2015 Oswaldo ROMERO, Lizbeth F 276.8 Hypokalemia 05/12/2015 Oswaldo ROMERO, Lizbeth F 300.4 Depression with anxiety 05/19/2015 NOÉ SHELTON MD Other G89.11 ACUTE PAIN DUE TO TRAUMA 05/19/2015 NIKITA ROMERO, NOÉ Dugan Other M25.551 PAIN IN RIGHT HIP 05/19/2015 NIKITA ROMERO, NOÉ Dugan Other S70.01XA CONTUSION OF RIGHT HIP, INITIAL ENCOUNTER 05/19/2015 NOÉ SHELTON MD Other W19.XXXA UNSPECIFIED FALL, INITIAL ENCOUNTER 05/19/2015 NOÉ SHELTON MD Other Y92.002 BATHRM OF [facility] PLACE 05/19/2015 NOÉ SHELTON MD Other Y99.9 [...] INITIAL ENCOUNTER 05/23/2015 REGINALDO THAYER Other Y92.[address] [facility] PL[address] IN SINGLE-FAMILY (PRIVATE) HOUSE PLACE 05/24/2015 MACIE HERNÁNDEZ P [id number] USP (CURRENT) USE OF OPIATE ANALGESIC 05/25/2015 OSWALDO [...] DO Ot R07.89 OTHER CHEST PAIN 06/17/2015 SHADY MORELAND MD F32.9 MAJOR DEPRESSIVE DISORDER, SINGLE EPISODE, UNSPECI 06/17/2015 SHADY MORELAND MD F41.9 ANXIETY DISORDER, UNSPECIFIED 06/17/2015 SHADY MORELAND MD I10 ESSENTIAL (PRIMARY) HYPERTENSION 06/17/2015 SHADY MORELAND MD I25.118 ATHSCL HEART DISEASE OF PLATINUM COR ART W OTH ANG P 06/17/2015 [...] MORELAND MD I25.118 ATHSCL HEART DISEASE OF PLATINUM COR ART W OTH ANG PCTRS 06/17/2015 SHADY MORELAND MD I48.91 UNSPECIFIED ATRIAL FIBRILLATION 06/17/2015 SHADY MORELAND MD J44.9 CHRONIC OBSTRUCTIVE PULMONARY DISEASE, UNSPECIFIED 06/17/2015 SHADY MORELAND MD K21.9 GASTRO-ESOPHAGEAL REFLUX DISEASE WITHOUT ESOPHAGITIS 06/17/2015 SHADY MORELAND MD Other M54.5 LOW BACK PAIN 06/17/2015 SHADY MORELAND MD Other R07.9 CHEST PAIN, UNSPECIFIED 06/17/2015 SHADY MORELAND MD Other Z86.718 PERSONAL HISTORY OF OTHER VENOUS THROMBOSIS AND EMBOLISM 06/17/2015 SHADY MORELAND MD Other Z86.73 PRSNL HX OF TIA (TIA), 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EFICITS 06/18/2015 VASILE BECKWITH-C DG R07.89 OTHER CHEST PAIN 06/18/2015 VASILE BECKWITH-C DG Z79.891 QUALITY CLOTH TESTER (CURRENT) USE OF OPIATE ANALGESIC 06/18/2015 VASILE BECKWITH-C Other R07.89 OTHER CHEST PAIN 06/18/2015 VASILE BECKWITH-C Other Z79.891 QUALITY CLOTH TESTER (CURRENT) USE OF OPIATE ANALGESIC 06/23/2015 KEYA JENKINS DO Ot M94.0 06/23/2015 KEYA JENKINS DO Ot R07.89 06/23/2015 KEYA JENKINS DO Ot M94.0 06/23/2015 KEYA JENKINS DO Ot R07.89 06/27/2015 JARETT RUSH MD Other [...] MORELAND MD I25.10 ATHSCL HEART DISEASE OF PLATINUM CORONARY ARTERY W/O 06/29/2015 SHADY MORELAND MD R07.89 OTHER CHEST PAIN 06/29/2015 SHADY MORELAND MD F11.20 OPIOID DEPENDENCE, UNCOMPLICATED 06/29/2015 SHADY MORELAND MD 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 06/29/2015 MERLY ROMERO, SHADY Hamilton Other R07.89 OTHER CHEST PAIN 07/01/2015 MAYRA ROMERO, ADORE Ot R07.89 OTHER CHEST PAIN 07/06/2015 MAYRA ROMERO, ADORE Ot R07.89 07/28/2015 MAYRA ROMERO, ADORE Slaughter M25.522 PAIN IN LEFT ELBOW 07/28/2015 MAYRA [...] 08/30/2015 VASILE BECKWITH PA-C Other Z79.899 OTHER USP (CURRENT) DRUG THERAPY 09/27/2015 Ot F10.120 ALCOHOL ABUSE WITH INTOXICATION, UNCOMPL 09/27/2015 Ot G89.29 OTHER CHRONIC PAIN 09/27/2015 Ot Y90.6 BLOOD ALCOHOL LEVEL OF 120-199 MG/100 ML 09/29/2015 Ot F10.120 ALCOHOL ABUSE WITH INTOXICATION, UNCOMPL 09/29/2015 Ot G89.29 OTHER CHRONIC PAIN 09/29/2015 Ot Y90.6 BLOOD ALCOHOL LEVEL OF 120-199 MG/100 ML 10/02/2015 DANI MA MD Other M25.552 PAIN IN LEFT HIP 10/02/2015 FRANCESCA ROMERO, DANI Tenorio Other M79.652 PAIN IN LEFT THIGH 10/23/2015 [...] 10/23/2015 MANUELA WILBURN APRN Other Z79.899 OTHER USP (CURRENT) DRUG THERAPY 10/26/2015 AWAIS OLMOS MD Ot S70.02XA CONTUSION OF LEFT HIP, INITIAL ENCOUNTER 10/29/2015 AWAIS OLMOS MD R Ot S70.02XA CONTUSION OF LEFT HIP, INITIAL ENCOUNTER 11/04/2015 MACIE HERNÁNDEZ Z79.891 USP (CURRENT) USE OF OPIATE ANALGESIC 11/19/2015 JOEY GARCIA MD Other F10.180 ALCOHOL ABUSE WITH ALCOHOL-INDUCED ANXIETY DISORDER 11/19/2015 JOEY GARCIA MD Other F32.9 MAJOR DEPRESSIVE DISORDER, SINGLE EPISODE, UNSPECIFIED 11/19/2015 JOEY GARCIA MD Other 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 11/19/2015 JOEY GARCIA MD Other S79.911A UNSPECIFIED INJURY OF RIGHT HIP, INITIAL ENCOUNTER 11/19/2015 JOEY GARCIA MD Other W17.89XA OTHER FALL FROM ONE LEVEL TO ANOTHER, INITIAL ENCOUNTER 11/19/2015 JOEY GARCIA MD Other Y90.6 BLOOD ALCOHOL LEVEL OF 120-199 MG/100 ML 11/19/2015 JOEY GARCIA MD Other Y92.[address] IN SINGLE-FAMILY (PRIVATE) HOUSE PLACE 11/19/2015 JOSE MD, JOEY A Other Z96.641 PRESENCE OF RIGHT ARTIFICIAL HIP JOINT 11/23/2015 DEBORAH ROMERO, STEVEN Castro Other F10.20 ALCOHOL DEPENDENCE, UNCOMPLICATED 11/23/2015 DEBORAH ROMERO, STEVEN Castro Other F17.210 NICOTINE DEPENDENCE, CIGARETTES, UNCOMPLICATED 11/23/2015 DEBORAH ROMERO, STEVEN Castro Other 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, RECURRENT SEVERE W/O PSYCH FEATURES 11/23/2015 DEBORAH ROMERO, STEVEN Castro Other I10 ESSENTIAL (PRIMARY) HYPERTENSION 11/23/2015 DEBORAH ROMERO, STEVEN Castro Other 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 11/23/2015 DEBORAH [...] PAIN 12/25/2015 KULWANT GARCIA Other Z79.899 OTHER USP (CURRENT) DRUG THERAPY 12/27/[address] DO I10 ESSENTIAL (PRIMARY) HYPERTENSION 12/27/2015 [address]ER DO R06.02 SHORTNESS OF BREATH 12/27/[address]ER DO R07.9 CHEST PAIN, UNSPECIFIED 12/27/[address] DO Other I10 ESSENTIAL (PRIMARY) HYPERTENSION 12/27/2015 NEDICH DO, MITRA L Other R06.02 SHORTNESS OF BREATH 12/27/2015 NEDICH DO MITRA L Other R07.9 CHEST PAIN, UNSPECIFIED 01/06/2016 JOSE CARLSON Alfonso HERNANDEZN-Kosta Other E04.9 NONTOXIC GOITER, UNSPECIFIED 01/19/2016 NEDICH DO MITRA L DG F10.27 ALCOHOL DEPENDENCE WITH ALCOHOL-INDUCED PERSISTING 01/19/2016 NEDICH DO MITRA L DG N18.3 CHRONIC KIDNEY DISEASE, STAGE 3 (MODERATE) 01/19/2016 NEDICH DO, MITRA L DG R31.9 HEMATURIA, UNSPECIFIED 01/19/2016 NEDICH DO, MITRA L Other F10.27 ALCOHOL DEPENDENCE WITH ALCOHOL-INDUCED PERSISTING DEMENTIA 01/19/2016 NEDICH DO MITRA L Other N18.3 CHRONIC KIDNEY DISEASE, STAGE 3 (MODERATE) 01/19/2016 NEDICH DO MITRA L Other R31.9 HEMATURIA, UNSPECIFIED 01/21/2016 [...] 01/21/2016 WEI SMITH MD Other Z79.899 OTHER USP (CURRENT) DRUG THERAPY 01/21/2016 WEI SMITH MD Other Z88.5 ALLERGY STATUS TO NARCOTIC AGENT STATUS 01/25/2016 DAVE JARVIS DO Other F10.120 ALCOHOL ABUSE WITH INTOXICATION, UNCOMPLICATED 01/25/2016 DAVE JARVIS DO Other R45.851 SUICIDAL IDEATIONS 01/25/2016 DAVE JARVIS DO Other Y90.9 PRESENCE OF ALCOHOL IN BLOOD, LEVEL NOT SPECIFIED 01/25/2016 DAVE JARVIS DO Other Z79.51 QUALITY CLOTH TESTER (CURRENT) USE OF INHALED STEROIDS 01/25/2016 DAVE JARVIS DO Michelle Other Z79.82 QUALITY CLOTH TESTER (CURRENT) USE OF ASPIRIN 02/04/[address] [...] LIZBETH M Ot R41.3 OTHER AMNESIA 02/24/2016 JARETT GIBSON MD Ot G89.29 OTHER CHRONIC PAIN 02/24/2016 JARETT GIBSON MD Ot M25.551 PAIN IN RIGHT HIP 02/24/2016 JARETT GIBSON MD Ot Z91.81 HISTORY OF FALLING 02/29/2016 MACIE HERNÁNDEZ Z79.891 QUALITY CLOTH TESTER (CURRENT) USE OF OPIATE ANALGESIC 03/23/2016 ALBA COLLINS DO Other M25.559 PAIN IN UNSPECIFIED HIP 03/23/2016 ALBA COLLINS DO Other M25.559 PAIN IN UNSPECIFIED HIP 03/30/2016 ALBA COLLINS DO M25.559 PAIN IN UNSPECIFIED HIP 03/31/2016 ALBA COLLINS DO Other M25.559 PAIN IN UNSPECIFIED HIP 03/31/2016 ALBA COLLINS DO M25.551 PAIN IN RIGHT HIP 03/31/2016 ALBA COLLINS DO M25.559 PAIN IN UNSPECIFIED HIP 03/31/2016 ALBA COLLINS DO Other Z96.641 PRESENCE OF RIGHT ARTIFICIAL HIP JOINT 04/04/2016 ALBA COLLINS DO M25.559 PAIN IN UNSPECIFIED HIP 04/04/2016 KARINA AGUILAABLA Other M25.551 PAIN IN RIGHT HIP 04/07/2016 KARINA AGUILAALBA Other M25.559 PAIN IN UNSPECIFIED HIP 04/07/2016 KARINA AGUILAALBA Other M25.551 PAIN IN RIGHT HIP 04/07/2016 KARINA AGUILAALBA Other M25.559 PAIN IN UNSPECIFIED HIP 04/07/2016 KARINA AGUILAALBA Other M25.551 PAIN IN RIGHT HIP 04/25/2016 MACIE HERNÁNDEZ P Z79.891 USP (CURRENT) USE OF OPIATE ANALGESIC 05/26/2016 MANUELA WILBURN APRN F10.129 ALCOHOL ABUSE WITH INTOXICATION, UNSPECIFIED 05/26/2016 MANUELA WILBURN APRN T50.902A POISONING BY UNSP DRUG/MEDS/BIOL SUBST, SELF-HARM, 05/26/2016 MANUELA WILBURN APRN Z79.899 OTHER USP (CURRENT) DRUG THERAPY 05/31/2016 MITZI BARAJAS MD Other F10.229 ALCOHOL DEPENDENCE WITH INTOXICATION, UNSPECIFIED 05/31/2016 MITZI BARAJAS MD Other F17.210 NICOTINE DEPENDENCE, CIGARETTES, UNCOMPLICATED 05/31/2016 MITZI BARAJAS MD Other 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, RECURRENT SEVERE W/O PSYCH FEATURES 05/31/2016 MITZI BARAJAS MD Other G89.4 CHRONIC PAIN SYNDROME 05/31/2016 MITZI BARAJAS MD Other H35.30 UNSPECIFIED MACULAR DEGENERATION 05/31/2016 MITZI BARAJAS MD I10 ESSENTIAL (PRIMARY) HYPERTENSION 05/31/2016 MITZI BARAJAS MD Other 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 05/31/2016 MITZI BARAJAS MD Other I25.2 OLD MYOCARDIAL INFARCTION 05/31/2016 MITZI BARAJAS MD J45.909 UNSPECIFIED ASTHMA, UNCOMPLICATED 05/31/2016 MITZI BARAJAS MD M25.551 PAIN IN RIGHT HIP 05/31/2016 MITZI BARAJAS MD Other R05 COUGH 05/31/2016 MITZI BARAJAS MD Other R45.851 SUICIDAL IDEATIONS 05/31/2016 MITZI BARAJAS MD Other T50.992A POISONING BY OTH DRUG/MEDS/BIOL SUBST, SELF-HARM, INIT 05/31/2016 MITZI BARAJAS MD Other Z86.73 PRSNL HX OF TIA (TIA), 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EFICITS 05/31/2016 MITZI BARAJAS MD Other Z91.5 PERSONAL HISTORY OF SELF-HARM 05/31/2016 MITZI BARAJAS MD Other Z95.5 PRESENCE OF CORONARY ANGIOPLASTY IMPLANT AND GRAFT 05/31/2016 MITZI BARAJAS MD Other Z96.641 PRESENCE OF RIGHT ARTIFICIAL HIP JOINT 05/31/2016 MITZI BARAJAS MD Other Z98.41 CATARACT EXTRACTION STATUS, RIGHT EYE 05/31/2016 MITZI BARAJAS MD Other Z98.42 CATARACT EXTRACTION STATUS, LEFT EYE [...] ALLERGY STATUS TO NARCOTIC AGENT STATUS 07/06/2016 GILLIAN ROMERORONY D72.829 Elevated white blood cell count, unspecified 07/06/2016 RONY FRENCH MD E05.90 Thyrotoxicosis, unsp without thyrotoxic crisis or storm 07/06/2016 RONY FRENCH MD E78.5 Hyperlipidemia, unspecified 07/06/2016 RONY FRENCH MD E87.1 Hypo-osmolality and hyponatremia 07/06/2016 RONY FRENCH MD 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, recurrent, severe w psych symptoms 07/06/2016 RONY FRENCH MD I10 Essential (primary) hypertension 07/06/2016 ORNY FRENCH MD K21.9 Gastro-esophageal reflux disease without esophagitis 07/06/2016 RONY FRENCH MD M25.551 Pain in right hip 07/06/2016 RONY FRENCH MD M54.5 Low back pain 07/06/2016 RONY FRENCH MD R00.1 Bradycardia, unspecified 07/06/2016 RONY FRENCH MD R45.851 Suicidal ideations 08/18/2016 MITRA STREETER DO D75.1 SECONDARY POLYCYTHEMIA 08/18/2016 MITRA STREETER DO E78.5 HYPERLIPIDEMIA, UNSPECIFIED 08/18/2016 MITRA STREETER DO DG I10 ESSENTIAL (PRIMARY) HYPERTENSION 08/18/2016 MITRA STREETER DO DG J20.8 ACUTE BRONCHITIS DUE TO OTHER SPECIFIED ORGANISMS 08/18/2016 MITRA STREETER DO DG R07.0 PAIN IN THROAT 08/22/2016 MITRA STREETER DO DG D75.1 SECONDARY POLYCYTHEMIA 08/22/2016 MITRA STREETER DO DG E78.5 HYPERLIPIDEMIA, UNSPECIFIED 08/22/[address]RE[address]ER DO DG I10 ESSENTIAL (PRIMARY) HYPERTENSION 10/09/2016 SULY SOUZA MD J44.1 CHRONIC OBSTRUCTIVE PULMONARY DISEASE W (ACUTE) EXACERBATION 10/09/2016 SULY SOUZA MD Other R06.02 SHORTNESS OF BREATH 10/09/2016 SULY SOUZA MD R55 SYNCOPE AND COLLAPSE 10/18/2016 RASHMI REINA Other F10.10 ALCOHOL ABUSE, UNCOMPLICATED 10/18/2016 ESTRELLA RYAN RASHMI Dominique Other J44.1 CHRONIC OBSTRUCTIVE PULMONARY DISEASE W (ACUTE) EXACERBATION 10/18/2016 MERCY REINAAH Catina Other R07.9 CHEST PAIN, UNSPECIFIED 10/18/2016 ESTRELLA RYAN RASHMI Dominique Other Y90.6 BLOOD ALCOHOL LEVEL OF 120-199 MG/100 ML 10/18/2016 MERCY REINADEISY Dominique Other Z79.899 OTHER QUALITY CLOTH TESTER (CURRENT) DRUG THERAPY 11/08/2016 SOPHIE DISLA APRN R07.9 CHEST PAIN, UNSPECIFIED 11/08/2016 SOPHIE DISLA APRN R51 HEADACHE 11/08/2016 SOPHIE DISLA APRN Z79.899 OTHER USP (CURRENT) DRUG THERAPY 11/09/2016 DAVE JARVIS DO Other F11.20 OPIOID DEPENDENCE, UNCOMPLICATED 11/09/2016 DAVE JARVIS DO Other R45.851 SUICIDAL IDEATIONS 11/09/2016 DAVE JARVIS DO Other Z79.51 USP (CURRENT) USE OF INHALED STEROIDS 11/09/2016 DAVE JARVIS DO Other Z79.899 OTHER QUALITY CLOTH TESTER (CURRENT) DRUG THERAPY 11/22/2016 RONY FRENCH MD E78.5 Hyperlipidemia, unspecified 11/22/2016 RONY FRENCH MD F33.2 Major depressv disorder, recurrent severe w/o psych features 11/22/2016 RONY FRENCH MD I10 Essential (primary) hypertension 11/22/2016 RONY FRENCH MD I25.10 Athscl heart disease of [place] coronary artery w/o ang pctrs 11/22/2016 RONY [...] FRENCH MD I25.10 Athscl heart disease of [place] coronary artery w/o ang pctrs 12/14/2016 RONY [...] AND GIDDINESS 12/22/2016 SULY SOUZA MD Z79.51 QUALITY CLOTH TESTER (CURRENT) USE OF INHALED STEROIDS 12/22/2016 SULY SOUZA MD Z86.73 PRSNL HX OF TIA (TIA), 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EFICITS 12/22/2016 SULY SOUZA MD Z88.5 ALLERGY STATUS TO NARCOTIC AGENT STATUS 01/03/2017 ANISH SON F E78.5 Hyperlipidemia, unspecified 01/03/2017 ANISH SON F F32.9 Major depressive disorder, single episode, unspecified 01/03/2017 ANISH SON F I10 Essential (primary) hypertension 01/03/2017 HANNAH OCONNELL I25.10 Atherosclerotic heart disease of [place] coronary artery without angina pectoris 01/03/2017 HANNAH [...] SUICIDAL IDEATIONS 02/05/2017 WEI SMITH MD Z79.1 QUALITY CLOTH TESTER (CURRENT) USE OF NON-STEROIDAL NON-INFLA 02/05/2017 WEI SMITH MD Z79.51 USP (CURRENT) USE OF INHALED STEROIDS 02/05/2017 WEI SMITH MD Z79.899 OTHER QUALITY CLOTH TESTER (CURRENT) DRUG THERAPY 02/13/2017 RONY FRENCH MD F17.210 Nicotine dependence, cigarettes, uncomplicated 02/13/2017 RONY FRENCH MD F33.2 Major depressv disorder, recurrent severe w/o psych features 02/13/2017 GILLIAN ROMERO, RONY Hamilton G89.29 Other chronic pain 02/13/2017 GILLIAN ROMERO, RONY Hamilton I10 Essential (primary) hypertension 08/02/2017 Bryant, Johnny W 294.21 08/02/2017 Bryant, Johnny W 300.02 08/02/2017 Bryant, Johnny W 303.90 08/02/2017 Bryant, Johnny W 305.1 TOBACCO USE DISORDER 08/02/2017 Bryant, Johnny W 338.2 CHRONIC PAIN 08/02/2017 Bryant, Johnny W 414.01 08/02/2017 Bryant, Johnny W 427.31 ATRIAL FIBRILLATION 08/02/2017 Bryant, Johnny W 438.22 08/02/2017 Bryant, Johnny W 491.20 08/02/2017 Bryant, Johnny W 530.81 ESOPHAGEAL REFLUX 08/02/2017 Bryant, Johnny W 600.20 08/02/2017 Bryant Johnny W 724.5 BACKACHE, UNSPECIFIED 08/02/2017 Bryant, Johnny W F03.91 08/02/2017 Bryant, Johnny W F10.20 ALCOHOL DEPENDENCE, UNCOMPLICATED 08/02/2017 Bryant, Johnny A F33.3 08/02/2017 Bryant, Johnny W F41.1 08/02/2017 Bryant, Johnny W G89.29 OTHER CHRONIC PAIN 08/02/2017 Keven Hurtadob W 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 08/02/2017 Bryant, Johnny W I48.91 UNSPECIFIED ATRIAL FIBRILLATION 08/02/2017 Bryant, Johnny W 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 08/02/2017 Bryant, Johnny W J44.9 CHRONIC OBSTRUCTIVE PULMONARY DISEASE, UNSPECIFIED 08/02/2017 Bryant, Johnny W K21.9 GASTRO-ESOPHAGEAL REFLUX DISEASE WITHOUT ESOPHAGITIS 08/02/2017 Kveen Hurtadob W M54.9 DORSALGIA, UNSPECIFIED 08/02/2017 Keven Hurtadob W N40.0 BENIGN PROSTATIC HYPERPLASIA WITHOUT LOWER URINRY TRACT SYMP 08/02/2017 BryantClauJohnny W Z72.0 TOBACCO USE 01/17/2018 SATISH HURT SYSTEMS SOFTWARE DESIGNER Ot K31.89 OTHER DISEASES OF STOMACH AND DUODENUM 01/17/2018 SATISH HURT APRN Ot K57.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/O PERFORATION OR AB 01/17/2018 SATISH HURT APRN Ot K59.00 CONSTIPATION, UNSPECIFIED 01/17/2018 SATISH HURT SYSTEMS SOFTWARE DESIGNER Ot K31.89 OTHER DISEASES OF STOMACH AND DUODENUM 01/17/2018 SATISH HURT APRN Ot K57.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/O PERFORATION OR AB 01/17/2018 SATISH HURT APRN Ot K59.00 CONSTIPATION, UNSPECIFIED 02/01/2018 TAISHA CINTRON DO Ot Z01.818 ENCOUNTER FOR OTHER PREPROCEDURAL EXAMIN 02/04/2018 TAISAH CINTRON DO B Ot Z01.818 ENCOUNTER FOR OTHER PREPROCEDURAL EXAMIN 02/04/2018 TAISHA CINTRON DO Ot E78.5 HYPERLIPIDEMIA, UNSPECIFIED 02/04/2018 TAISHA CINTRON DO Ot F17.200 NICOTINE DEPENDENCE, UNSPECIFIED, UNCOMP 02/04/2018 TAISHA CINTRON DO B Ot F32.9 MAJOR DEPRESSIVE DISORDER, SINGLE EPISOD 02/04/2018 TAISHA CINTRON DO Ot G62.9 POLYNEUROPATHY, UNSPECIFIED 02/04/2018 TAISHA CINTRON DO B Ot I10 ESSENTIAL (PRIMARY) HYPERTENSION 02/04/2018 TAISHA CINTRON DO B Ot 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 AFFECT 02/04/2018 TAISHA CINTRON DO Ot J44.9 CHRONIC OBSTRUCTIVE PULMONARY DISEASE, U 02/04/2018 TAISHA CINTRON DO B Ot K20.9 ESOPHAGITIS, UNSPECIFIED 02/04/2018 TAISHA CINTRON DO Ot K21.9 GASTRO-ESOPHAGEAL REFLUX DISEASE WITHOUT 02/04/2018 TAISHA CINTRON DO B Ot K29.70 GASTRITIS, UNSPECIFIED, WITHOUT BLEEDING 02/04/2018 DELMAN DO, TAISHA B Ot K31.7 POLYP OF STOMACH AND DUODENUM 02/04/2018 KEIRA CINTRON DOIC B Ot K44.9 DIAPHRAGMATIC HERNIA WITHOUT OBSTRUCTION 02/04/2018 KEIRA CINTRON DOIC B Ot Z79.899 OTHER QUALITY CLOTH TESTER (CURRENT) DRUG THERAPY 02/08/2018 KEIRA CINTRON DOIC B Ot E78.5 HYPERLIPIDEMIA, UNSPECIFIED 02/08/2018 ABDULAZIZ AGUILA TAISHA B Ot F17.200 NICOTINE DEPENDENCE, UNSPECIFIED, UNCOMP 02/08/2018 ABDULAZIZ AGUILA TAISHA B Ot F32.9 MAJOR DEPRESSIVE DISORDER, SINGLE EPISOD 02/08/2018 KEIRA CINTRON DOIC B Ot G62.9 POLYNEUROPATHY, UNSPECIFIED 02/08/2018 KEIRA CINTRON DOIC B Ot I10 ESSENTIAL (PRIMARY) HYPERTENSION 02/08/2018 ABDULAZIZ AGUILA TAISHA B Ot 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 AFFECT 02/08/2018 ABDULAZIZ AGUILA TAISHA B Ot J44.9 CHRONIC OBSTRUCTIVE PULMONARY DISEASE, U 02/08/2018 KEIRA CINTRON DOIC B Ot K20.9 ESOPHAGITIS, UNSPECIFIED 02/08/2018 KEIRA CINTRON DOIC B Ot K21.9 GASTRO-ESOPHAGEAL REFLUX DISEASE WITHOUT 02/08/2018 EKIRA CINTRON DOIC B Ot K29.70 GASTRITIS, UNSPECIFIED, WITHOUT BLEEDING 02/08/2018 KEIRA CINTRON DOIC B Ot K31.7 POLYP OF STOMACH AND DUODENUM 02/08/2018 KEIRA CINTRON DOIC B Ot K44.9 DIAPHRAGMATIC HERNIA WITHOUT OBSTRUCTION 02/08/2018 KEIRA CINTRON DOIC B Ot Z79.899 OTHER USP (CURRENT) DRUG THERAPY 02/14/2018 SATISH HURT APRN Ot K31.89 OTHER DISEASES OF STOMACH AND DUODENUM 02/14/2018 SATISH HURT APRN Ot K57.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/O PERFORATION OR AB 02/14/2018 SATISH HURT APRN Ot K59.00 CONSTIPATION, UNSPECIFIED 02/17/2018 ABDULAZIZ AGUILA TAISHA B Ot E78.5 HYPERLIPIDEMIA, UNSPECIFIED 02/17/2018 ABDULAZIZ AGUILA TAISHA B Ot F17.200 NICOTINE DEPENDENCE, UNSPECIFIED, UNCOMP 02/17/2018 ABDULAZIZ AGUILA, TAISHA B Ot F32.9 MAJOR DEPRESSIVE DISORDER, SINGLE EPISOD 02/17/2018 TAISHA CINTRON DO B Ot G62.9 POLYNEUROPATHY, UNSPECIFIED 02/17/2018 TAISHA CINTRON DO B Ot I10 ESSENTIAL (PRIMARY) HYPERTENSION 02/17/2018 KEIRA CINTRON DOIC B Ot 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 AFFECT 02/17/2018 TAISHA CINTRON DO B Ot J44.9 CHRONIC OBSTRUCTIVE PULMONARY DISEASE, U 02/17/2018 TAISHA CINTRON DO B Ot K20.9 ESOPHAGITIS, UNSPECIFIED 02/17/2018 KEIRA CINTRON DOIC B Ot K21.9 GASTRO-ESOPHAGEAL REFLUX DISEASE WITHOUT 02/17/2018 KEIRA CINTRON DOIC B Ot K29.70 GASTRITIS, UNSPECIFIED, WITHOUT BLEEDING 02/17/2018 KEIRA CINTRON DOIC B Ot K31.7 POLYP OF STOMACH AND DUODENUM 02/17/2018 KEIRA CINTRON DOIC B Ot K44.9 DIAPHRAGMATIC HERNIA WITHOUT OBSTRUCTION 02/17/2018 TAISHA CINTRON DO B Ot Z79.899 OTHER QUALITY CLOTH TESTER (CURRENT) DRUG THERAPY 02/18/2018 TAISHA CINTRON DO B Ot Z01.818 ENCOUNTER FOR OTHER PREPROCEDURAL EXAMIN 02/19/2018 TAISHA CINTRON DO B Ot Z01.818 ENCOUNTER FOR OTHER PREPROCEDURAL EXAMIN 02/22/2018 TAISHA CINTRON DO B Ot D12.2 BENIGN NEOPLASM OF ASCENDING COLON 02/22/2018 KEIRA CINTRON DOIC B Ot G57.93 UNSPECIFIED MONONEUROPATHY OF BILATERAL 02/22/2018 TAISHA CINTRON DO B Ot I10 ESSENTIAL (PRIMARY) HYPERTENSION 02/22/2018 TAISHA CINTRON DO B Ot J44.9 CHRONIC OBSTRUCTIVE PULMONARY DISEASE, U 02/22/2018 TAISHA CINTRON DO B Ot K21.9 GASTRO-ESOPHAGEAL REFLUX DISEASE WITHOUT 02/22/2018 TAISHA CINTRON DO B Ot K57.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/O PERFORATION OR AB 02/22/2018 TAISHA CINTRON DO B Ot K63.5 POLYP OF COLON 02/22/2018 TAISHA CINTRON DO B Ot K64.8 OTHER HEMORRHOIDS 02/22/2018 TAISHA CINTRON DO B Ot Z79.899 OTHER USP (CURRENT) DRUG THERAPY 03/22/2018 SATISH HURT APRN Ot K31.89 OTHER DISEASES OF STOMACH AND DUODENUM 03/22/2018 SATISH HURT APRN Ot K57.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/O PERFORATION OR AB 03/22/2018 SATISH HURT APRN, Ot K59.00 CONSTIPATION, UNSPECIFIED 03/27/2018 TAISHA CINTRON DO Ot Z01.818 ENCOUNTER FOR OTHER PREPROCEDURAL EXAMIN Procedures Code Description Performed By Performed On 00.40 PROCEDURE ON SINGLE VESSEL Bret Powell MD 05/06/2014 00.45 INSERTION OF ONE VASCULAR STENT Bret Powell MD 05/06/2014 00.66 PERCUTANEOUS TRANSLUMINAL CORONARY ANGIOPLASTY [PT Bret Powell MD 36.07 INSRT OF DRUG-ELUTING CORON ARTERY STENTS(S) Bret Powell MD 2014 37.22 LEFT HEART CARDIAC CATH Bret Powlel MD 05/06/2014 88.53 LT HEART ANGIOCARDIOGRAM Bret Powell MD 05/06/2014 88.56 CORONAR ARTERIOGR-2 CATH Bret Powell MD 05/06/2014 99.19 INJECT ANTICOAGULANT Bret Powell MD 05/06/2014 44.43 ENDOSCOPIC CONTROL OF GASTRIC OR DUODENAL BLEEDING 08/29/2014 93.89 REHABILITATION NEC 09/03/2014 91137 Office/outpatient visit; established patient, level 1 04/27/2015 36661 Office/outpatient visit; established patient, level 4 04/28/2015 64742 Office/outpatient visit; established patient, level 4 05/05/2015 95132 Office/outpatient visit; established patient, level 4 05/12/2015 03890 DRAWING AND HANDLING - VENOUS 01/03/2017 73989 NEW COMPREHENSIVE 01/03/2017 91060 EST EXPANDED PROBLEM FOCUSED 02/01/2017 Results Test [...] 93 mg/dL 35-160 VLDL 19 mg/dL 0-42 [id number] - 02/22/18 14:30 C DIFFICILE AG + TOXIN A/B. - 02/22/18 14:40 RESULTS NEGATIVE FOR ANTIGEN AND TOXIN A/B [facility] Stool bacteria identification by culture - 02/22/18 14:40 QUANTITY OF GROWTH . NR Stool bacteria identification by culture SEE REPORT NRG Complete blood count (CBC) with automated white blood cell (WBC) differential - 03/28/18 10:20 Blood leukocytes automated count (number/volume) 6.2 10*3/uL 4.3-11.0 Blood erythrocytes automated count (number/volume) 5.60 10*6/uL 4.35-5.85 Venous blood hemoglobin measurement (mass/volume) 17.2 g/dL 13.3-17.7 Blood hematocrit (volume fraction) 49 % 40-54 Automated erythrocyte mean corpuscular volume 88 [foz_us] 80-99 Automated erythrocyte mean corpuscular hemoglobin (mass per erythrocyte) 31 pg 25-34 Automated erythrocyte mean corpuscular hemoglobin concentration measurement ( mass/volume) 35 g/dL 32-36 Automated erythrocyte distribution width ratio 14.4 % 10.0-14.5 Automated blood platelet count (count/volume) 168 10*3/uL 130-400 Automated blood platelet mean volume measurement 9.9 [foz_us] 7.4-10.4 Automated blood neutrophils/100 leukocytes 64 % 42-75 Automated blood lymphocytes/100 leukocytes 20 % 12-44 Blood monocytes/100 leukocytes 9 % 0-12 Automated blood eosinophils/100 leukocytes 6 % 0-10 Automated blood basophils/100 leukocytes 1 % 0-10 Blood neutrophils automated count (number/volume) 4.0 10*3 1.8-7.8 Blood lymphocytes automated count (number/volume) 1.3 10*3 1.0-4.0 Blood monocytes automated count (number/volume) 0.6 10*3 0.0-1.0 Automated eosinophil count 0.4 10*3/uL 0.0-0.3 Automated blood basophil count (count/volume) 0.0 10*3/uL 0.0-0.1 Encounters ACCT No. Visit Date/Time Discharge Status Pt. Type Provider Facility Loc./Unit Complaint [id number] 08/03/2017 20:01:02 ACT Unknown [id number] 01/20/2015 19:31:00 01/20/2015 23:59:59 CLS [facility] RUT [id number] 05/06/2014 04:50:00 05/07/2014 17:00:00 DIS Inpatient Bret Powell MD [facility] W.4CE [id number] 02/14/2013 15:39:00 02/14/2013 18:02:00 DIS [facility] [id number] 02/13/2013 23:03:00 02/13/2013 23:50:00 DIS Emergency Sabina Vasquez [facility] W.EDW [id number] 06/27/2015 18:41:00 06/27/2015 21:10:00 DIS ER VICTOR MANUEL ROMERO, JARETT ED [id number] 06/16/2015 20:04:00 Document Registration [id number] 08/07/2011 23:15:00 Document Registration [id number] 11/15/2014 19:21:00 11/15/2014 23:59:59 CLS [facility].ER [id number] 05/12/2015 15:08:03 05/12/2015 15:57:43 DIS Outpatient Oswaldo ROMERO, [facility] [id number] 10/23/2015 20:05:00 10/23/2015 23:59:59 [id number]/18/2015 18:05:00 06/18/2015 23:59:59 CLS [facility].ER [id number] 07/26/2017 10:45:00 08/02/2017 10:44:00 DIS Inpatient [facility] BOZENA [id number] 07/26/2017 11:06:07 Document Registration [id number] 05/19/2015 01:35:00 05/19/2015 23:59:59 CLS [facility] ED [id number] 04/26/2016 13:15:00 04/26/2016 23:59:59 CLS Outpatient ALBA COLLINS DO [facility] [id number] 07/28/2015 08:56:03 07/28/2015 08:56:03 Outpatient [id number] 07/28/2015 08:53:36 07/28/2015 08:53:36 Outpatient [id number] 07/28/2015 08:11:59 07/28/2015 08:12:00 Outpatient [id number] 11/13/2014 20:58:00 11/13/2014 23:59:59 CLS [facility] L.ER [id number] 06/10/2013 10:56:00 06/10/2013 12:34:00 DIS Emergency Gilbert ROMERO, Alvarez Castro [facility] [id number] 05/28/2013 12:17:00 05/28/2013 23:59:59 CLS Outpatient Minh ROMERO, Estevan Hamilton [facility] [id number] 05/27/2013 22:05:00 05/28/2013 00:20:00 DIS Emergency Reginaldo Oliveira DO [facility] [id number] 04/30/2013 03:26:00 04/30/2013 04:17:00 DIS Emergency Mayito ROMERO, Falguni [facility] [id number] 04/28/2013 11:51:00 04/28/2013 13:25:00 DIS Emergency Efrain ROMERO, Jay [facility] [id number] 05/28/2013 12:28:00 Document Registration [id number] 06/18/2015 18:05:00 06/18/2015 23:59:59 CLS [facility] L.ER [id number] 12/25/2015 19:53:00 12/25/2015 23:59:59 CLS [facility] L.ER [id number] 06/23/2013 18:31:00 06/23/2013 23:59:59 CLS Outpatient [id number] 05/30/2013 15:27:00 05/30/2013 23:59:59 CLS Outpatient [id number] 05/16/2013 13:57:00 05/16/2013 23:59:59 CLS Outpatient [id number] 05/14/2013 17:09:00 05/14/2013 23:59:59 CLS Outpatient [id number] 04/18/2013 14:40:00 04/18/2013 23:59:59 CLS Outpatient [id number] 06/29/2015 18:15:00 06/29/2015 20:01:00 DIS ER MERLY ROMERO, SHADY [facility] L.ER [id number] 06/18/2015 18:05:00 06/18/2015 22:05:00 DIS ER VASILE BECKWITH PA-C.ER [id number] 06/16/2015 20:35:00 06/17/2015 09:40:00 DIS ER MERLY ROMERO, SHADY SommersMOO [id number] 06/16/2015 20:04:00 Document Registration [id number] 06/16/2015 20:04:00 Document Registration [id number] 12/23/2015 19:39:00 12/23/2015 23:59:59 CLS [facility] L.ER [id number] 06/08/2017 23:00:00 06/08/2017 23:59:59 DIS Outpatient FALGUNI HAMILTON [facility] [id number] 03/13/2017 18:24:00 ACT JAY GILLIAM [facility] O[facility] unknown [id number] 10/02/2015 20:52:00 10/02/2015 20:52:00 CAN Emergency [facility] L.ER [id number] 03/07/2015 22:00:00 03/07/2015 23:59:59 CLS [facility] L.ER [id number] 08/29/2014 10:20:00 08/29/2014 23:59:59 CLS [facility] L.ER [id number] 06/27/2015 18:37:00 06/27/2015 23:59:59 CLS [facility] ED [id number] 02/19/2016 12:04:00 02/19/2016 14:09:00 DIS Emergency PAIGE ROMERO, JARETT [facility] ED INJURY [id number] 10/26/2015 20:09:00 10/26/2015 22:19:00 DIS Emergency NICKOLAS ROMERO, AWAIS [facility] ED [id number] 07/28/2015 13:23:00 07/28/2015 15:32:00 DIS Emergency MAYRA ROMERO, ADORE [facility] ED [id number] 07/01/2015 11:53:00 07/01/2015 13:03:00 DIS Emergency MAYRA ROMERO, ADORE [facility] ED [id number] 06/16/2015 13:51:00 06/16/2015 15:09:00 DIS Emergency JENKINS DO [facility] ED [id number] 05/19/2015 20:26:00 05/19/2015 22:25:00 DIS Emergency NICKOLAS ROMERO, [facility] ED [id number] 04/30/2015 12:02:00 04/30/2015 23:59:59 CLS Outpatient OSWALDO ROMERO, [facility] RAD RETROGRADE AMNESIA - R41.2 [id number] 04/26/2015 12:21:00 04/26/2015 13:25:00 DIS Emergency MAZIN ROMERO, [facility] ED [id number] 05/08/2014 21:13:00 05/08/2014 23:59:59 CLS Outpatient [facility] EMS ALS ASSIST FROM [facility] [id number] 10/09/2013 22:42:00 10/09/2013 23:30:00 DIS Emergency DELANEY ROMERO, [facility] ED [id number] 09/01/2013 13:10:00 09/01/2013 14:26:00 DIS Emergency DENEENLION AGUILA [facility] ED [id number] 07/20/2013 18:25:00 07/20/2013 18:56:00 DIS Emergency JADEN ROMERO, CHRISTOPHER [facility] ED [id number] 07/14/2013 20:33:00 07/14/2013 23:09:00 DIS Emergency DENEENLION AGUILA [facility] ED [id number] 06/21/2013 21:25:00 06/21/2013 22:13:00 DIS Emergency NICKOLAS ROMERO, [facility] ED [id number] 04/28/2013 21:21:00 04/28/2013 22:23:00 DIS Emergency DELANEY ROMERO, [facility] ED [id number] 04/15/2013 15:15:00 04/15/2013 16:08:00 DIS Emergency DENEENCARROLL SEYMOUR DO [facility] ED [id number] 04/03/2013 03:05:00 04/03/2013 03:56:00 DIS Emergency NICKOLAS ROMERO, AWAIS [facility] ED [id number] 09/26/2015 21:24:00 Document Registration [id number] 06/11/2014 08:20:00 Document Registration [id number] 06/03/2014 15:28:00 Document Registration [id number] 09/20/2014 20:59:00 09/20/2014 23:59:59 CLS [facility] L.ER [id number] 01/20/2015 19:15:00 01/20/2015 23:59:59 CLS [facility] L.ER [id number] 08/03/2017 19:57:55 ACT Document Registration [id number] 12/21/2016 21:04:00 12/21/2016 23:59:59 CLS [facility] ED [id number] 08/29/2015 21:21:00 08/29/2015 23:59:59 CLS [facility] L.ER [id number] 11/18/2015 22:14:00 11/18/2015 23:59:59 CLS [facility] L.ER [id number] 06/27/2015 18:37:00 06/27/2015 23:59:59 CLS [facility] ED [id number] 03/26/2018 11:15:00 03/26/2018 11:44:00 DIS Outpatient TAISHA CINTRON DO [facility] PREOP ABDOMINAL PAIN [id number] 02/22/2018 11:54:00 02/22/2018 15:50:00 DIS Outpatient TAISHA CINTRON DO [facility] ENDO ABD PAIN [id number] 02/18/2018 05:50:00 02/18/2018 13:00:00 DIS Outpatient TAISHA CINTRON DO [facility] PREOP COLONOSCOPY [id number] 02/04/2018 11:55:00 02/04/2018 15:30:00 DIS Outpatient TAISHA CINTRON DO [facility] ENDO GASTRITIS [id number] 02/01/2018 05:42:00 02/01/2018 11:10:00 DIS Outpatient TAISHA CINTRON DO B [facility] PREOP EGD [id number] 01/16/2018 08:08:00 01/16/2018 23:59:59 CLS Outpatient SATISH HURT APRN [facility] RAD ABD PAIN [id number] 03/28/2018 09:34:00 ACT Inpatient TAISHA CINTRON DO B [facility] 4TH ABDOMINAL PAIN [id number] 03/28/2018 09:31:00 ACT Outpatient TIASHA CINTRON DO B [facility] SDC ABDOMINAL PAIN [id number] 02/01/2017 10:50:00 02/01/2017 23:59:59 CLS Outpatient [facility] [id number] 01/03/2017 10:30:00 01/03/2017 23:59:59 CLS Outpatient [facility] [id number] 02/07/2017 20:21:00 Document Registration [id number] 02/02/2017 15:51:00 Document Registration [id number] 02/01/2017 19:41:00 Document Registration [id number] 2017 23:14:00 Document Registration [id number] 10/05/2016 09:18:00 10/05/2016 13:10:00 DIS Emergency Candelario ROMERO, [facility] EED [id number] 02/05/2017 17:20:00 02/05/2017 20:10:00 DIS Outpatient LUIS ROMERO, WEI [facility] 1SOU [id number] 12/21/2016 21:07:00 12/22/2016 01:11:00 DIS Emergency HARLEY ROMERO, SULY [facility] ED [id number] 11/08/2016 20:46:00 11/09/2016 04:56:00 DIS Inpatient DAVE JARVIS DO [facility] 1SOU [id number] 10/09/2016 12:29:00 10/09/2016 14:29:00 DIS Emergency HARLEY ROMERO, SULY [facility] ED [id number] 06/24/2016 21:30:00 06/25/2016 08:35:00 DIS Inpatient NIKITA ROMERO, NOÉ Dugan [facility] 1SOU [id number] 05/26/2016 21:05:00 05/31/2016 13:23:00 DIS Inpatient TRENT SOLITARIO MD, MITZI Queen [facility] 5SUR W [id number] 05/29/2016 14:39:00 05/29/2016 23:59:59 CLS Preadmit DEBORAH ROMERO, STEVEN [id number] 04/07/2016 10:06:00 04/07/2016 23:59:00 DIS Outpatient KARINA [facility] LAB [id number] 04/07/2016 10:05:00 04/07/2016 23:59:00 DIS Outpatient KARINA [facility] XRAY [id number] 03/31/2016 13:23:00 03/31/2016 23:59:00 DIS Outpatient KARINA [facility] IC [id number] 01/24/2016 20:45:00 01/25/2016 01:56:00 DIS Inpatient DAVE JARVIS DO [facility] 1SOU [id number] 01/21/2016 18:39:00 01/21/2016 20:36:00 DIS Emergency LUIS ROMERO, WEI [facility] ED [id number] 01/20/2016 10:00:00 01/20/2016 23:59:[address] DO [facility] NICL [id number] 12/21/2015 16:48:00 12/21/2015 22:04:00 DIS Emergency BALAJI FUNES MD [facility] ED [id number] 11/19/2015 20:44:00 11/23/2015 16:45:00 DIS Inpatient DEBORAH ROMERO, STEVEN [facility] [id number] 06/27/2015 18:41:00 06/27/2015 21:10:00 DIS Emergency VICTOR MANUEL ROMERO, JARETT [facility] ED [id number] 05/19/2015 01:37:00 05/19/2015 02:21:00 DIS Emergency NIKITA ROMERO, NOÉ Dugan [facility] ED [id number] 12/28/2014 12:04:00 12/28/2014 23:59:00 DIS Outpatient MAGO AGUILA, [facility] XRAY [id number] 12/28/2014 13:00:00 12/28/2014 13:00:00 CAN Preadmit MAGO AGUILA, [facility] INFU TH [id number] 09/03/2014 12:43:00 09/08/2014 10:22:00 DIS Inpatient EDDA ROMERO, JASBIR Priest [facility] REHAB [id number] 08/29/2014 14:14:00 09/03/2014 12:18:00 DIS Inpatient RITA ROMERO, SABINA Ferro [facility] 4MED W [id number] 08/29/2014 11:56:00 Document Registration [id number] 07/09/2014 22:32:00 Document Registration [id number] 06/18/2014 09:38:00 Document Registration [id number] 06/11/2014 17:40:00 Document Registration [id number] 05/24/2014 13:19:00 Document Registration [id number] 05/05/2014 22:51:00 Document Registration [id number] 09/01/2013 18:08:00 Document Registration [id number] 07/21/2013 00:26:00 Document Registration [id number] 07/15/2013 14:40:00 Document Registration [id number] 06/19/2012 01:40:00 Document Registration [id number] 05/15/2012 13:52:00 Document Registration [id number] 03/29/2012 09:05:00 Document Registration [id number] 01/18/2012 23:16:00 Document Registration [id number] 12/20/2011 15:24:00 Document Registration [id number] 12/12/2011 00:47:00 Document Registration [id number] 09/02/2011 03:43:00 Document Registration [id number] 08/07/2011 23:15:00 Document Registration [id number] 08/07/2011 00:32:00 Document Registration [id number] 08/04/2011 03:31:00 Document Registration [id number] 04/28/2011 00:17:00 Document Registration [id number] 03/04/2011 02:21:00 Document Registration [id number] 12/08/2010 00:14:00 Document Registration [id number] 11/19/2010 01:03:00 Document Registration [id number] 09/27/2010 19:44:00 Document Registration [id number] 09/05/2010 21:53:00 Document Registration [id number] 08/27/2010 00:38:00 Document Registration [id number] 07/26/2010 21:56:00 Document Registration [id number] 07/17/2010 02:10:00 Document Registration [id number] 06/24/2010 00:46:00 Document Registration [id number] 04/27/2010 19:46:00 Document Registration [id number] 02/08/2010 15:04:00 Document Registration [id number] 02/07/2010 18:55:00 Document Registration [id number] 01/29/2010 19:51:00 Document Registration [id number] 01/11/2010 16:44:00 Document Registration [id number] 11/27/2009 14:35:00 Document Registration [id number] 10/20/2009 09:45:00 Document Registration [id number] 10/15/2009 17:15:00 Document Registration [id number] 09/12/2009 20:52:00 Document Registration [id number] 08/30/2009 19:09:00 Document Registration [id number] 08/22/2009 12:56:00 Document Registration [id number] 06/23/2009 17:08:00 Document Registration [id number] 01/22/2009 18:54:00 Document Registration [id number] 12/15/2008 16:50:00 Document Registration [id number] 09/14/2008 10:51:00 Document Registration [id number] 09/02/2008 21:06:00 Document Registration [id number] 08/28/2008 21:22:00 Document Registration [id number] 07/20/2008 10:04:00 Document Registration [id number] 07/11/2008 19:16:00 Document Registration [id number] 06/30/2008 19:32:00 Document Registration [id number] 06/13/2008 13:53:00 Document Registration [id number] 05/15/2008 20:46:00 Document Registration [id number] 05/12/2008 13:53:00 Document Registration [id number] 03/12/2008 19:30:00 Document Registration [id number] 02/16/2008 00:10:00 Document Registration [id number] 01/27/2008 15:56:00 Document Registration [id number] 01/01/2008 13:50:00 Document Registration [id number] 09/13/2007 17:59:00 Document Registration [id number] 06/30/2007 19:57:00 Document Registration [id number] 05/23/2015 19:57:00 05/23/2015 23:59:59 CLS Preadmit [facility] [id number] 05/19/2014 11:22:05 05/19/2014 23:59:59 CLS Outpatient Shady Burrell [id number] 04/28/2014 14:41:12 04/28/2014 23:59:59 CLS Outpatient Shday Burrell [id number] 01/26/2014 14:31:13 01/26/2014 23:59:59 CLS Outpatient Shady Burrell [id number] 12/23/2013 14:08:54 12/23/2013 23:59:59 CLS Outpatient Mary Torres [id number] 10/24/2013 15:36:16 10/24/2013 23:59:59 CLS Outpatient Shady Burrell [id number] 01/07/2018 14:42:12 01/07/2018 23:59:59 CLS Outpatient Satish Hurt [id number] 10/15/2017 08:38:26 10/15/2017 23:59:59 CLS Outpatient Marco Munoz [id number] 08/09/2017 14:31:36 08/09/2017 23:59:59 CLS Outpatient Marco Munoz [id number] 06/26/2017 10:37:35 06/26/2017 23:59:59 CLS Outpatient Marco Munoz [id number] 05/25/2017 16:53:38 05/25/2017 23:59:59 CLS Outpatient Marco Munoz [id number] 02/14/2017 10:22:43 02/14/2017 23:59:59 CLS Outpatient Marco Munoz [id number] 12/21/2015 16:42:00 12/21/2015 23:59:59 CLS Preadmit [facility] ED [id number] 02/07/2017 11:45:00 02/13/2017 11:10:00 DIS Inpatient GILLIAN ROMERO, [facility] [id number] 12/01/2016 03:20:00 12/14/2016 11:10:00 DIS Inpatient GILLIAN ROMERO, [facility] [id number] 11/09/2016 07:50:00 11/22/2016 14:45:00 DIS Inpatient GILLIAN ROMERO, [facility] [id number] 06/25/2016 11:55:00 07/06/2016 15:30:00 DIS Inpatient GILLIAN ROMERO, [facility] [id number] 02/13/2015 22:05:00 02/13/2015 23:59:59 CLS Preadmit [facility] L.ER [id number] 08/28/2015 21:00:00 08/28/2015 23:59:59 CLS Preadmit [facility] L.ER [id number] 05/31/2016 13:50:00 06/14/2016 12:30:00 DIS Inpatient STEVEN ROMERO, [facility] BOZENA [id number] 06/01/2016 15:10:00 06/03/2016 13:20:00 DIS Inpatient JANI ROMERO, [facility] ICU [id number] 06/24/2016 20:10:00 06/24/2016 23:59:59 CLS Preadmit [facility] ED [id number] 03/05/2015 23:03:00 03/05/2015 23:59:59 CLS Preadmit [facility] L.ER [id number] 07/26/2017 10:45:00 Document Registration [id number] 11/08/2016 17:33:00 11/08/2016 23:59:59 CLS Preadmit [facility] L.ER [id number] 01/21/2016 18:37:00 01/21/2016 23:59:59 CLS Preadmit [facility] ED [id number] 11/30/2016 18:55:00 12/01/2016 00:30:00 DIS Emergency VASILE BECKWITH PA-C [facility] L.ER [id number] 11/08/2016 17:33:00 11/08/2016 18:50:00 DIS Emergency ALEJANDROVERONICASOPHIE APRN [facility] L.ER [id number] 11/07/2016 18:02:00 11/07/2016 18:02:00 CAN Preadmit CRISTIAN COCHRAN [facility] L.ER [id number] 10/17/2016 22:21:00 10/18/2016 00:14:00 DIS Emergency RASHMI REINA [facility] L.ER [id number] 08/22/2016 10:31:00 08/22/2016 23:59:00 DIS Outpatient [facility] L.NPLAB [id number] 08/18/2016 08:29:00 08/18/2016 23:59:00 DIS CLI [facility] L.LAB [id number] 08/18/2016 08:28:00 08/18/2016 08:28:00 CAN Preadmit AMAYA AGUILA [facility] L.OH [id number] 06/12/2016 07:00:00 06/12/2016 23:59:59 CLS Preadmit [facility] L.LAB [id number] 05/26/2016 19:40:00 05/26/2016 23:59:00 DIS ER MANUELA WILBURN APRN [facility] L.ER [id number] 02/04/2016 08:22:00 02/04/2016 23:59:00 DIS Outpatient [facility] L. [id number] 01/19/2016 07:47:00 01/19/2016 23:59:00 DIS Outpatient [facility] L.LAB [id number] 01/06/2016 09:50:00 01/06/2016 23:59:00 DIS Outpatient [facility] [id number] 12/27/2015 07:53:00 12/27/2015 23:59:00 DIS Outpatient [facility] L.LAB [id number] 12/25/2015 19:53:00 12/25/2015 21:35:00 DIS Emergency KULWANT GARCIA [facility] L.ER [id number] 12/23/2015 19:39:00 12/23/2015 22:10:00 DIS Emergency VASILE BECKWITH PA-C [facility] L.ER [id number] 11/18/2015 22:15:00 11/19/2015 17:02:00 DIS Emergency JOSE ROMERO, JOEY Bond [facility] L.ER [id number] 10/23/2015 20:12:00 10/23/2015 21:43:00 DIS Emergency MANUELA WILBURN [facility] L.ER [id number] 10/02/2015 20:52:00 10/02/2015 21:20:00 DIS Emergency FRANCESCA ROMERO, DANI Tenorio [facility] L.ER [id number] 08/29/2015 21:22:00 08/30/2015 04:55:00 DIS Emergency VASILE BECKWITH PA-C [facility] L.ER [id number] 08/28/2015 21:00:00 08/28/2015 21:50:00 DIS Emergency MANUELA WILBURN APRN [facility] L.ER [id number] 08/27/2015 18:47:00 08/27/2015 20:40:00 DIS Emergency VASILE BECKWITH PA-C [facility] L.ER [id number] 06/29/2015 18:15:00 06/29/2015 20:01:00 DIS Emergency MERLY ROMERO, [facility] L.ER [id number] 06/18/2015 18:05:00 06/18/2015 22:05:00 DIS Emergency VASILE BECKWITHKosta [facility] L.ER [id number] 06/16/2015 20:35:00 06/17/2015 09:40:00 DIS Inpatient MERLY ROMERO, [facility] L.MOO [id number] 05/23/2015 19:57:00 05/23/2015 20:35:00 DIS Emergency REGINALDO THAYER [facility] L.ER [id number] 05/11/2015 21:48:00 05/11/2015 23:52:00 DIS Emergency OSWALDO ROMERO, [facility] L.ER [id number] 04/28/2015 08:05:00 04/28/2015 23:59:00 DIS Outpatient MERLY ROMERO, [facility] L.LAB [id number] 04/21/2015 09:41:00 04/21/2015 23:59:00 DIS Outpatient OSWALDO ROMERO, [facility] L.LAB [id number] 04/19/2015 19:53:00 04/19/2015 20:40:00 DIS [facility]CA [facility] [id number] 03/07/2015 22:00:00 03/07/2015 23:25:00 DIS Emergency VASILE BECKWITH PA-C [facility] L.ER [id number] 03/05/2015 23:03:00 03/06/2015 00:21:00 DIS Emergency VASILE BECKWITH PA-C [facility] L.ER [id number] 02/27/2015 17:47:00 02/27/2015 23:59:00 DIS Outpatient [facility] L. [id number] 02/13/2015 22:05:00 02/14/2015 00:42:00 DIS Emergency [facility] L. [id number] 02/03/2015 09:57:00 02/03/2015 23:59:00 DIS Outpatient MERLY ROMERO, SHADY [id number] 01/20/2015 19:33:00 01/20/2015 20:40:00 DIS Emergency MAGO [facility] [id number] 01/14/2015 12:00:00 01/14/2015 23:59:00 [facility] [id number] 12/31/2014 09:40:00 12/31/2014 23:59:00 DIS [facility] [id number] 12/23/2014 09:30:00 12/23/2014 09:30:00 CAN [facility]readmit [facility] [id number] 12/21/2014 10:26:00 12/21/2014 23:59:00 [facility] [id number] 12/11/2014 14:20:00 12/11/2014 23:59:00 DIS [facility] [id number] 11/26/2014 11:20:00 11/26/2014 12:20:00 [facility] [id number] 11/16/2014 10:53:00 11/16/2014 23:59:00 DIS Outpatient [facility] [id number] 11/15/2014 19:26:00 11/15/2014 20:56:00 DIS Emergency MANUELA WILBURN [facility] L.ER [id number] 11/13/2014 20:58:00 11/13/2014 22:29:00 DIS Emergency SOPHIE DISLA [facility] L.ER [id number] 10/19/2014 10:42:00 10/19/2014 23:59:00 DIS Outpatient MAGO , [facility] L. [id number] 10/16/2014 14:12:00 10/16/2014 23:59:00 [facility] [id number] 09/21/2014 10:31:00 09/21/2014 23:59:00 [facility] [id number] 09/20/2014 21:10:00 09/20/2014 23:17:00 DIS Emergency VASILE BECKWITH PA-C [facility] L.ER [id number] 09/01/2014 13:30:00 09/01/2014 13:30:00 CAN Outpatient JACK ROMERO, JARETT Bond [facility] L.OP [id number] 08/29/2014 10:20:00 08/29/2014 13:00:00 DIS Emergency MANUELA WILBURN [facility] L.ER [id number] 05/26/2016 20:36:00 Document Registration [id number] 05/26/2016 20:36:00 Document Registration [id number] 05/26/2016 20:36:00 Document Registration [id number] 05/26/2016 20:36:00 Document Registration [id number] 05/26/2016 20:36:00 Document Registration [id number] 05/26/2016 20:36:00 Document Registration [id number] 06/16/2015 20:04:00 Document Registration [id number] 08/10/2014 13:51:00 Document Registration [id number] 07/21/2014 15:52:00 Document Registration [id number] 07/03/2014 10:57:00 Document Registration [id number] 06/01/2014 13:00:00 Document Registration [id number] 12/25/2013 20:06:00 Document Registration [id number] 10/09/2013 23:52:00 Document Registration [id number] 08/20/2013 21:40:00 Document Registration [id number] 08/19/2013 18:45:00 Document Registration [id number] 07/20/2013 21:32:00 Document Registration [id number] 07/15/2013 21:25:00 Document Registration [id number] 06/23/2013 21:57:00 Document Registration [id number] 04/25/2016 09:27:00 04/25/2016 09:27:00 DIS Outpatient [facility] [id number] 02/29/2016 14:55:00 02/29/2016 14:55:00 DIS Outpatient [facility] [id number] 11/05/2015 14:42:00 11/05/2015 14:42:00 DIS Outpatient [facility] [id number] 05/24/2015 14:12:00 05/24/2015 14:12:00 DIS Outpatient [facility] [id number] 07/25/2013 12:44:00 08/01/2013 09:48:00 DIS Inpatient [facility]
[2018-03-28 13:15] VITALS: BP 167/92
[2018-03-28] MEDS ORDERED: LACT10SO PO (13:46)
[2018-03-28] MEDS ORDERED: SODI45SP9 NS (13:46)
[2018-03-28] MEDS: HYDROmorphone 2 MG/ML VIAL (DILAUDID) IV PRN ×2 (14:10→17:53)
[2018-03-28 14:30] VITALS: BP 161/72
[2018-03-28] MEDS ORDERED: FLU QUADRIvalent (5+ YOA) 2018-2019 (AFLURIA) 0.5 ML IM ONE (15:15)
[2018-03-28 16:05] VITALS: BP 153/81
[2018-03-28] MEDS ORDERED: LACTULOSE 10 GM/15 ML 30 ML POUR BOTTLE FOR ENEMA PO PRN (18:00)
[2018-03-28] MEDS ORDERED: RT-ALBUTEROL SULF 2.5 MG/3 ML PRE-MIX VIAL IH PRN (18:00)
[2018-03-28] MEDS ORDERED: SUCRALFATE 1 GM (CARAFATE) TAB PO PRN (18:00)
[2018-03-28] MEDS ORDERED: NON-FORMULARY MEDICATION 1 EA EA (Polyethylene Glycol 3350 (Miralax) 17 GM) PO PRN (18:00)
--- NOTE | 2018-03-28 18:05 | Cardiology History & Physical ---
HPI-Cardiology Cardiology Consultation Date of Consultation 03/28/18 Date of Admission Time Seen by Provider: 12:10 Indication: chest pain HPI 73 years old gentleman with history of coronary artery disease, had a heart attack in the past with stents, hypertension hyperlipidemia, COPD active smoker , had abdominal surgery with adhesion, has been having recurrent abdominal pain. Continue to have persistent pain and he was scheduled for surgery with exploratory laparotomy and release of adhesion in his abdomen. He has been having recurrent chest pain which has been occurring more frequently reported chest pain as dull in nature in the retrosternal area lasting for few minutes up to 15 minutes, last episode occurred yesterday, denied any palpitation, syncope or near syncopal episode he is an active smoker and still an active smoker. Educated on smoking cessation. I was called for preoperative evaluation and the surgery was delayed. Decision was made to admit him and proceed with cardiac workup due to his recurrent chest pain PMH-Cardiology Immunizations Up To Date Date of Influenza Vaccine: August 14, 2017 Seasonal Allergies Seasonal Allergies: No Surgeries Yes Respiratory Yes Cardiovascular Yes (cardiac ablation, heart stents) Atrial Fibrillation, Heart Attack, Hypertension, Coronary Artery Disease Neurological Yes Neuropathy Reproductive System Hx Reproductive Disorders: No Sexually Transmitted Disease: No HIV/AIDS: No Genitourinary No Gastrointestinal Yes (adhesions) Gastroesophageal Reflux Musculoskeletal Yes (R Hip replacement) Arthritis Endocrine No HEENT Yes Loss of Vision: Bilateral Hearing Impairment: Hard of Hearing Cancer No Psychosocial No Depression Integumentary No Blood Transfusions No Adverse Rxn to Transfusion: No Other PMHx past medical history was described below Social History Patient Social History Employed/Student: retired Alcohol Use: Denies Use Recreational Drug Use: No Smoking: Current every day smoker Family Hx Other noncontributory to his current condition ROS-Cardiology Review of Systems General: No Chills, No Night Sweats, No Fatigue, No Malaise, No Appetite HEENT: No Head Aches, No Visual Changes, No Eye Pain, No Ear Pain, No Dysphasia , No Sinus Congestion, No Post Nasal Drip, No Sore Throat Pulmonary: Dyspnea; No Cough, No Pleuritic Chest Pain Cardiovascular: Chest Pain; No: Palpitations, Orthopnea, Paroxysmal Noc. Dyspnea, Edema, Lt Headedness Gastrointestinal: Nausea, Abdominal Pain; No: Vomiting, Diarrhea, Constipation , Melena, Hematochezia Genitourinary: No Dysuria, No Frequency, No Incontinence, No Hematuria, No Retention Musculoskeletal: No: neck pain, shoulder pain, arm pain, back pain, hand pain, leg pain, foot pain Neurological: No: Weakness, Numbness, Incoordination, Change in speech, Confusion, Seizures Home Medications & Allergies Allergies: Coded Allergies: NSAIDS (Non-Steroidal Anti-Inflamma (Verified Allergy, Intermediate, GI UPSET, 03/26/18) fentanyl (Verified Allergy, Mild, RASH, 03/26/18) ketorolac (Verified Allergy, Mild, RASH, 03/26/18) metoclopramide (Verified Allergy, Mild, NERVOUSNESS, 03/26/18) morphine (Verified Allergy, Mild, RASH, 03/26/18) Home Medication List Reviewed: Yes Exam-Cardiology Vital Signs Vital Signs Date Time Temp Pulse Resp B/P (MAP) Pulse Ox O2 Delivery O2 Flow Rate FiO2 03/28/18 16:05 96.3 50 14 153/81 (105) 96 Room Air Exam General Appearance: Alert, Oriented X3, Cooperative, No Acute Distress HEENT: Atraumatic, PERRLA Respiratory: Clear to Auscultation, Normal Air Movement Cardiovascular: Regular Rate, Normal S1, Normal S2, Other (systolic murmur at the left sternal border) Abdominal: Normal Bowel Sounds, Soft, No Hepatosplenomegaly, No Masses, Other ( diffuse discomfort) Extremities: No Clubbing, No Cyanosis, No Edema, No Tenderness/Swelling, Other (diminished or solids pedis pulse) Skin: No Rashes, No Breakdown, No Significant Lesion Neuro: Normal Gait, Normal Speech, Strength at 5/5 X4 Ext, Normal Tone, Sensation Intact Psych/Mental Status: Mental Status NL, Mood NL Results Labs Labs labs are pending A/P-Cardiology Admission Diagnosis chest pain Coronary artery disease Hypertension Hyperlipidemia Admission Status: Observation Assessment/Plan Chest pain resulting in angina, accelerating angina, has been having worsening symptoms recently. Had last episode of chest pain last night. EKG showed non- diagnostic changes. I am planning to proceed with Lexiscan stress test and evaluation of his echo showed normal LV function with left ventricular hypertrophy. Next Coronary artery disease history of myocardial infarction and stenting done in the past. Does not have record of his stent. We'll continue monitoring for now Hypertension, restart home medication monitor blood pressure next Hyperlipidemia, maintained on statin, I will evaluate lipid profile COPD, on multiple inhaler. Restart inhalers and monitor next Tobaccoism, active smoker, educated on smoking cessation Peripheral arterial disease, monitor for now, need JAQUAN Carotid bruit, need ultrasound Diabetes, restart meds and monitor blood sugar Peripheral neuropathy Abdominal pain, history of recurrent adhesions, was scheduled for exploratory laparotomy, will be postponed for now, monitor. Questionable mesenteric ischemia and intestinal angina Clinical Quality Measures DVT/VTE Risk/Contraindication: Risk Factor Score Per Nursin RFS Level Per Nursing on Admit: 4+=Very High EDIN MARSHALL MD Mar 28, 2018 18:05
[2018-03-28] MEDS ORDERED: LACTULOSE SYRUP 10GM/15ML (ENULOSE) 30ML UDC PO PRN (18:30)
[2018-03-28] MEDS ORDERED: POLYETHYLENE GLYCOL 17 GM (MIRALAX) PACK PO PRN (18:30)
[2018-03-28 19:20] VITALS: BP 162/72
[2018-03-28] MEDS: RT-ADVAIR HFA 115/21 MCG PER PUFF IH SCH (19:20)
[2018-03-28] MEDS ORDERED: OXYC15TA79 PO ×2 (19:39)
[2018-03-28] MEDS: LOSARTAN 100 MG (COZAAR) TABLET PO SCH (20:28)
[2018-03-28] MEDS: GABAPENTIN 400 MG (NEURONTIN) CAP PO SCH (20:28)
[2018-03-28] MEDS: SERTRALINE 100 MG (ZOLOFT) TAB PO SCH (20:29)
[2018-03-28] MEDS: FAMOTIDINE 20 MG (PEPCID) TABLET PO SCH (20:29)
[2018-03-28] MEDS ORDERED: NON-FORMULARY MEDICATION 1 EA EA (Budesonide/Formoterol Fumarate (Symbicort 160-4.5 Mcg In IH SCH (21:00)
[2018-03-28] MEDS ORDERED: oxyCODONE ER 15 MG (oxyCONTIN CR) TAB PO SCH (21:00)
[2018-03-28] MEDS ORDERED: NON-FORMULARY MEDICATION 1 EA EA (Gabapentin 800 MG) PO SCH (21:00)
[2018-03-28] MEDS ORDERED: NON-FORMULARY MEDICATION 1 EA EA (Famotidine 40 MG) PO SCH (21:00)
[2018-03-29] VITALS (12 sets, daily range): BP systolic 109–179; BP diastolic 47–106
[2018-03-29] MEDS: HYDROmorphone 2 MG/ML VIAL (DILAUDID) IV PRN ×3 (04:31→14:30)
[2018-03-29] MEDS: PANTOPRAZOLE 40 MG (PROTONIX) TAB PO SCH (05:37)
[2018-03-29 06:02] LABS: HEMOGLOBIN 18.3 G/DL (13.3-17.7); MEAN PLATELET VOLUME 10.3 FL (7.4-10.4); RED BLOOD COUNT 5.96 10^6/uL (4.35-5.85); RED CELL DISTRIBUTION WIDTH 14.2 % (10.0-14.5); WHITE BLOOD COUNT 6.3 10^3/uL (4.3-11.0)
[2018-03-29] MEDS: UMECLIDINIUM BROMIDE (INCRUSE ELLIPTA) 7'S IH SCH (06:57)
[2018-03-29] MEDS: RT-ADVAIR HFA 115/21 MCG PER PUFF IH SCH ×2 (06:57→19:34)
[2018-03-29 07:02] LABS: ALANINE AMINOTRANSFERASE 21 U/L (0-55); ALBUMIN 3.9 GM/DL (3.2-4.5); ALKALINE PHOSPHATASE 101 U/L (40-136); BILIRUBIN,TOTAL 0.6 MG/DL (0.1-1.0); BUN/CREATININE RATIO 18; CALCIUM 9.4 MG/DL (8.5-10.1); CARBON DIOXIDE 18 MMOL/L (21-32); CHLORIDE 103 MMOL/L (98-107); CHOLESTEROL 127 MG/DL (< 200); CREATININE SERUM 0.94 MG/DL (0.60-1.30); GFR ESTIMATED > 60; GLUCOSE 117 MG/DL (70-105); HDL CHOLESTEROL 37 MG/DL (40-60); POTASSIUM 4.8 MMOL/L (3.6-5.0); SODIUM 133 MMOL/L (135-145); TOTAL PROTEIN 6.7 GM/DL (6.4-8.2); TRIGLYCERIDES 87 MG/DL (<150); VLDL CHOLESTEROL 17 MG/DL (5-40)
[2018-03-29] MEDS ORDERED: REGADENOSON 0.4 MG/5 ML SYR (LEXISCAN) IV ONE ×2 (07:58→08:15)
[2018-03-29] MEDS ORDERED: CATHETER FLUSH 10 ML SYR IV ONE (08:15)
[2018-03-29] MEDS: FLUTICASONE NASAL SPRAY (FLONASE) 16 GM BTL NS SCH (09:00)
[2018-03-29] MEDS: ATORVASTATIN 20 MG (LIPITOR) TABLET PO SCH (09:44)
[2018-03-29] MEDS: GABAPENTIN 400 MG (NEURONTIN) CAP PO SCH ×3 (09:44→21:39)
[2018-03-29] MEDS: meTOproloL SUCCINATE 50 MG (TOPROL XL) TAB PO SCH (09:45)
[2018-03-29] MEDS: NICOTINE 21 MG (NICODERM) PATCH TD SCH (09:53)
[2018-03-29] MEDS ORDERED: NS IV 1000 ML 1,000 ML ONE (11:13)
[2018-03-29] MEDS ORDERED: LIDOCAINE 1% INJ 20 ML 20 ML VIAL ONE (11:13)
[2018-03-29] MEDS ORDERED: HEParin (CATH LAB) 2,000 ML IV ONE (11:13)
--- NOTE | 2018-03-29 12:11 | Cardiology Progress Note ---
Subjective Date Seen by Provider: Mar 29, 2018 Time Seen by Provider: 12:09 Subjective/Events-last exam patient was seen and evaluated, denied any chest pain today, was asking for nicotine patch Review of Systems General: No Chills, No Night Sweats, No Fatigue, No Malaise, No Appetite, No Other HEENT: No Head Aches, No Visual Changes, No Eye Pain, No Ear Pain, No Dysphasia , No Sinus Congestion, No Post Nasal Drip, No Sore Throat, No Other Pulmonary: No Dyspnea, No Cough, No Pleuritic Chest Pain, No Other Cardiovascular: No: Chest Pain, Palpitations, Orthopnea, Paroxysmal Noc. Dyspnea, Edema, Lt Headedness, Other Objective-Cardiology Exam Last Set of Vital Signs Vital Signs 03/29/18 03/29/18 04:22 08:08 Temp 96.6 Pulse 65 Resp 16 B/P (MAP) 120/81 (94) Pulse Ox 97 O2 Delivery Room Air Capillary Refill : I&O Intake and Output 03/29/18 00:00 Intake Total 1056 ml Output Total 500 ml Balance 556 ml Intake Oral 1056 ml Output Urine Total 500 ml # Voids 1 Daily Weight Change No General: Alert, Oriented X3, Cooperative, No Acute Distress HEENT: Atraumatic, PERRLA Neck: Supple Lungs: Clear to Auscultation, Normal Air Movement Heart: Regular Rate, Normal S1, Normal S2, Other (systolic murmur at the left sternal border) Abdomen: Normal Bowel Sounds, Soft, No Hepatosplenomegaly, No Masses, Other ( diffuse discomfort) Extremities: No Clubbing, No Cyanosis, No Edema, No Tenderness/Swelling, Other (diminished or solids pedis pulse) Skin: No Rashes, No Breakdown, No Significant Lesion Neuro: Normal Gait, Normal Speech, Strength at 5/5 X4 Ext, Normal Tone, Sensation Intact Psych/Mental Status: Mental Status NL, Mood NL Results Lab Laboratory Tests 03/29/18 05:40 03/29/18 06:35 A/P-Cardiology Admission Diagnosis chest pain Coronary artery disease Hypertension Hyperlipidemia Assessment/Plan Chest pain, resembling angina, had a stress test today which was abnormal, I'll proceed with cardiac catheterization possible PTCA Coronary artery disease history of myocardial infarction and stenting done in the past. Does not have record of his stent. planning to proceed with cardiac catheterization Hypertension, continue to monitor blood pressure Hyperlipidemia, maintained on statin, I will evaluate lipid profile COPD, on multiple inhaler. Restart inhalers and monitor Tobaccoism, active smoker, educated on smoking cessation Peripheral arterial disease, monitor for now, need JAQUAN Carotid bruit, need ultrasound Diabetes, restart meds and monitor blood sugar Peripheral neuropathy Abdominal pain, history of recurrent adhesions, was scheduled for exploratory laparotomy, will be postponed for now, monitor. Questionable mesenteric ischemia and intestinal angina Clinical Quality Measures DVT/VTE Risk/Contraindication: Risk Factor Score Per Nursin RFS Level Per Nursing on Admit: 4+=Very High EDIN MARSHALL MD Mar 29, 2018 12:11
--- NOTE | 2018-03-29 12:11 | Cardiac Procedure Note-CS/ASA ---
Pre-Procedure Note Pre-Op Procedure Note H&P Reviewed The H&P was reviewed, patient examined and no changes noted. Date H&P Reviewed: Mar 29, 2018 Time H&P Reviewed: 12:11 Conscious Sedation Pre-Proced Time 12:11 ASA Score 3 For ASA 3 and 4: Consider anesthesia and medical clearance. Also, for patients with a history of failed moderate sedation consider anesthesia. Airway Lungs Heart ASA score ASA 1: a normal healthy patient ASA 2: a patient with a mild systemic disease (mid diabetes, controlled hypertension, obesity x ASA 3: a patient with a severe systemic disease that limits activity (angina , COPD, prior Myocardial infarction) ASA 4: a patient with an incapacitating disease that is a constant threat to life (CHF, renal failure) ASA 5: a moribund patient not expected to survive 24 hrs. (ruptured aneurysm) ASA 6: a declared brain patient whose organs are being harvested. For emergent operations, add the letter E after the classification Mallampati Classification Grade 3 Sedation Plan Analgesia, Amnesia, Plan communicated to team members, Discussed options with patient/fam, Discussed risks with patient/fam The patient is an appropriate candidate to undergo the planned procedure, sedation, and anesthesia. The patient immediately re-assessed prior to indication. EDIN MARSHALL MD Mar 29, 2018 12:11
[2018-03-29] MEDS ORDERED: MIDAZOLAM 5 MG/5 ML (VERSED) VIAL ONE (12:48)
[2018-03-29] MEDS ORDERED: HEParin 1000 UNIT/ML (10ML VIAL) FOR BOLUS ONE (13:15)
[2018-03-29] MEDS ORDERED: ADENOSINE 3 MG/1 ML (ADENOSCAN) 30ML VIAL IV ONE (13:18)
[2018-03-29] MEDS ORDERED: PATIENT MAY USE OWN MEDS, ALL PO SCH (13:45)
--- NOTE | 2018-03-29 13:46 | Cardiac Cath Report ---
Cardiac Cath Report Physician (s)/Cereal Maker (s) Physician EDIN MARSHALL MD Pre-Procedure Diagnosis Pre-Procedure Diagnosis: coronary artery disease, chest pain Post-Procedure Note Procedure Start Date: Mar 29, 2018 Name of Procedure: Left heart catheterization Abdominal aortogram FFR to the LAD Findings/Procedure Note PROCEDURE NOTE: 73 years old gentleman with history of coronary artery disease, was scheduled for abdominal surgery yesterday 8 was canceled due to recurrent chest pain, underwent stress test which was abnormal showing mild ischemia at the anteroapical segment. He was scheduled for cardiac catheterization today. After explaining the procedure to the patient, all pros and cons were explained , all questions were answered. The patient signed the consent and then he was placed on the cardiac catheterization laboratory. Groin was prepped SL fashion local anesthesia was used. Sheath placed in the Right femoral artery. Darwin right and left catheter were used to access the coronary system. Pigtail was used to access the left ventricular cavity. Left ventriculogram was done, abdominal aortogram was done with a pigtail catheter Patient was given 6000 units of heparin. FL guide was advanced to the left coronary system and FFR wire was advanced in the LAD, patient has severe stenosis in the proximal LAD beyond an old stent involving the ostial of the diagonal artery the artery is about 2 mm in diameter. I was considering intervening on him and placing a stent but the patient was having significant abdominal pain and expressed that he is not willing to delay his abdominal surgery. I elected to proceed with FFR evaluation to evaluate the significance of the lesion at rest. It appeared to be 80 percent stenosis, FFR at baseline was ranging between 0.87 and 0.90 which appear to be moderate. I did not proceed with adenosine injection due to the fact that patient had ischemia at the distal apical area with a stress test. At the end of the procedure the sheath was removed. Closure device was used FINDINGS: Hemodynamics LV 172/9, end-diastolic pressure of 9 Aorta 160/65 mean of 96 ANATOMY: Left Main has mild disease nonobstructive disease Left Anterior Descending has patent proximal stent followed by 80 percent stenosis involving the ostium of the first diagonal artery the artery is about 2 mm in diameter. The lesion is significant. Patient was having active abdominal pain and did not want to delay his abdominal surgery, I recommend the use of drug eluting stent to that lesion due to the location of the lesion involving the proximal LAD and the size of the artery and the involvement of the first diagonal artery. This will cause a delay in his surgery for 3-6 months at least. Patient is not willing to wait. Understand the risk and I discussed the management plan with Dr. 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 Patent stent in the proximal LAD followed by severe stenosis involving the ostium of the first diagonal artery the LAD is about 2 mm in diameter, FFR across the lesion was 0.87-0.9 without Adenosine injection. 2. Otherwise mild coronary artery disease 3. Normal left ventricular size, preserved systolic pressure estimated ejection fraction 60 percent 4. Normal abdominal aorta and renal arteries DISCUSSION AND RECOMMENDATION: The LAD lesion is significant. Patient was having active abdominal pain and did not want to delay his abdominal surgery, I recommend the use of drug eluting stent to that lesion due to the location of the lesion involving the proximal LAD and the size of the artery and the involvement of the first diagonal artery. This will cause a delay in his surgery for 3-6 months at least. Patient is not willing to wait. Understand the risk and I discussed the management plan with Dr. Sheikh and we will talk to him about his risk and benefit and consider proceeding with abdominal surgery then proceeding with placement of the arterial LAD stent Anesthesia Type: Conscious Sedation Estimated blood loss (mL): 15 ml Contrast Amount: 124 ml Total Radiation Dose: 439 mGy Post-Procedure Diagnosis Post-operative diagnosis: Chest pain Coronary artery disease Hypertension Hyperlipidemia EDIN MARSHALL MD Mar 29, 2018 13:46
[2018-03-29] MEDS: NS IV 1000 ML 1,000 ML IV SCH ×2 (14:43→23:36)
[2018-03-29] MEDS ORDERED: HYDROmorphone 2 MG/ML VIAL (DILAUDID) IV SCH (15:00)
[2018-03-29] MEDS: HYDROmorphone 2 MG/ML VIAL (DILAUDID) IV SCH ×3 (15:14→21:40)
[2018-03-29] MEDS: SERTRALINE 100 MG (ZOLOFT) TAB PO SCH (21:40)
[2018-03-29] MEDS: LOSARTAN 100 MG (COZAAR) TABLET PO SCH (21:40)
[2018-03-29] MEDS: FAMOTIDINE 20 MG (PEPCID) TABLET PO SCH (21:40)
[2018-03-30] VITALS (7 sets, daily range): BP systolic 108–165; BP diastolic 56–78
[2018-03-30] MEDS: traZODone 150 MG (DESYREL) TABLET PO PRN (00:36)
[2018-03-30] MEDS: HYDROmorphone 2 MG/ML VIAL (DILAUDID) IV SCH ×9 (00:38→23:43)
[2018-03-30] MEDS: PANTOPRAZOLE 40 MG (PROTONIX) TAB PO SCH (06:09)
[2018-03-30] MEDS: RT-ADVAIR HFA 115/21 MCG PER PUFF IH SCH ×2 (06:59→18:55)
[2018-03-30] MEDS: UMECLIDINIUM BROMIDE (INCRUSE ELLIPTA) 7'S IH SCH (07:00)
[2018-03-30 07:03] LABS: HEMOGLOBIN 15.8 G/DL (13.3-17.7); RED BLOOD COUNT 5.1 10^6/uL (4.35-5.85); RED CELL DISTRIBUTION WIDTH 14.1 % (10.0-14.5); WHITE BLOOD COUNT 6.5 10^3/uL (4.3-11.0)
[2018-03-30 07:24] LABS: ALANINE AMINOTRANSFERASE 19 U/L (0-55); ALBUMIN 3.8 GM/DL (3.2-4.5); ALKALINE PHOSPHATASE 115 U/L (40-136); BILIRUBIN,TOTAL 0.7 MG/DL (0.1-1.0); BUN/CREATININE RATIO 14; CARBON DIOXIDE 20 MMOL/L (21-32); CHLORIDE 103 MMOL/L (98-107); GFR ESTIMATED > 60; GLUCOSE 92 MG/DL (70-105); SODIUM 136 MMOL/L (135-145); TOTAL PROTEIN 6.4 GM/DL (6.4-8.2)
[2018-03-30] MEDS: meTOproloL SUCCINATE 50 MG (TOPROL XL) TAB PO SCH (08:27)
[2018-03-30] MEDS: FLUTICASONE NASAL SPRAY (FLONASE) 16 GM BTL NS SCH (08:28)
[2018-03-30] MEDS: NICOTINE 21 MG (NICODERM) PATCH TD SCH (08:28)
[2018-03-30] MEDS: NICOTINE PATCH REMOVAL TP SCH (08:28)
[2018-03-30] MEDS: ATORVASTATIN 20 MG (LIPITOR) TABLET PO SCH (08:28)
[2018-03-30] MEDS: GABAPENTIN 400 MG (NEURONTIN) CAP PO SCH ×3 (08:29→20:47)
[2018-03-30] MEDS ORDERED: NICOTINE 21 MG (NICODERM) PATCH TD SCH (09:00)
[2018-03-30] MEDS: NS IV 1000 ML 1,000 ML IV SCH ×3 (10:29→23:20)
--- NOTE | 2018-03-30 12:34 | Progress Note ---
Subjective Time Seen by a Provider: 11:29 Subjective/Events-last exam Pt seen and examined, state his abdominal pain is much better controlled today. He denies chest pain, but is complaining of left hand cramping. Review of Systems General: No Chills, No Night Sweats HEENT: No Head Aches, No Visual Changes Pulmonary: No Dyspnea, No Cough Cardiovascular: No: Chest Pain, Palpitations Gastrointestinal: Abdominal Pain; No: Nausea, Vomiting Objective Exam Vital Signs Date Time Temp Pulse Resp B/P (MAP) Pulse Ox O2 Delivery O2 Flow Rate FiO2 03/30/18 08:01 95.6 65 18 113/59 (77) 92 03/30/18 08:00 Room Air 03/30/18 07:01 97 Room Air 03/30/18 07:00 97 Room Air 03/30/18 07:00 61 03/30/18 04:00 97.0 73 18 127/62 (83) 92 Room Air 03/30/18 01:00 70 03/30/18 00:15 97.8 78 18 148/78 (101) 92 03/29/18 20:10 Simple Mask 03/29/18 20:10 97.9 66 18 156/76 (102) 94 Room Air 03/29/18 19:34 96 Room Air 03/29/18 19:00 66 03/29/18 16:00 65 20 109/47 (67) 95 Room Air 03/29/18 15:30 62 21 159/73 (101) 95 Room Air 03/29/18 15:00 60 22 160/90 (113) 95 Room Air 03/29/18 14:45 61 18 179/85 (116) 97 Room Air 03/29/18 14:30 65 16 163/81 (108) 7 Room Air 03/29/18 14:15 61 14 158/106 (123) 97 Room Air 03/29/18 14:06 64 03/29/18 14:05 97.4 65 12 159/76 (103) 94 Room Air I & O 03/30/18 07:00 Intake Total 620 ml Output Total 1150 ml Balance -530 ml Capillary Refill : Less Than 3 Seconds General Appearance: No Apparent Distress, WD/WN HEENT: PERRL/EOMI, Moist Mucous Membranes Respiratory: Chest Non Tender, Lungs Clear, Normal Breath Sounds, No Accessory Muscle Use, No Respiratory Distress Cardiovascular: Regular Rate, Rhythm, No Edema, Normal Peripheral Pulses Gastrointestinal: normal bowel sounds, soft; No distended Neurologic/Psychiatric: Alert, 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, 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 Skin: Normal Color, Warm/Dry Lymphatic: No Adenopathy (neck, axilla or groin) Results Lab Laboratory Tests 03/30/18 06:00: White Blood Count 6.5, Red Blood Count 5.10, Hemoglobin 15.8, Hematocrit 46, Mean Corpuscular Volume 89, Mean Corpuscular Hemoglobin 31, Mean Corpuscular Hemoglobin Concent 35, Red Cell Distribution Width 14.1, Platelet Count 181, Mean Platelet Volume 10.0, Sodium Level 136, Potassium Level 5.0, Chloride Level 103, Carbon Dioxide Level 20L, Anion Gap 13, Blood Urea Nitrogen 14, Creatinine 1.00, Estimat Glomerular Filtration Rate > 60, BUN/Creatinine Ratio 14, Glucose Level 92, Calcium Level 9.0, Corrected Calcium 9.2, Total Bilirubin 0.7, Aspartate Amino Transf (AST/SGOT) 21, Alanine Aminotransferase (ALT/SGPT) 19, Alkaline Phosphatase 115, Total Protein 6.4, Albumin 3.8 Assessment/Plan Assessment/Plan Assessment/Plan Chest pain with Coronary artery lesion Abdominal pain I saw pt yesterday in ICU; he was supposed to have surgery , but it got cancelled because of chest pain. He had angiogram and needs cardiac stenting. Yesterday pt wanted to do surgery, because he couldn't live with pain. However, since we increased pain meds and pain is better controlled he is willing to have stenting. I believe this is best for the patient and we will make sure he goes home on meds to control abdominal pain. Clinical Quality Measures DVT/VTE Risk/Contraindication: Risk Factor Score Per Nursin RFS Level Per Nursing on Admit: 4+=Very High TAISHA CINTRON DO Mar 30, 2018 12:34
--- NOTE | 2018-03-30 13:01 | Cardiology Progress Note ---
Subjective Date Seen by Provider: Mar 30, 2018 Time Seen by Provider: 12:58 Subjective/Events-last exam patient is laying down in bed, had another episode of chest pain this morning, still having some abdominal pain. Review of Systems General: No Chills, No Night Sweats, No Fatigue, No Malaise, No Appetite, No Other HEENT: No Head Aches, No Visual Changes, No Eye Pain, No Ear Pain, No Dysphasia , No Sinus Congestion, No Post Nasal Drip, No Sore Throat, No Other Pulmonary: No Dyspnea, No Cough, No Pleuritic Chest Pain, No Other Cardiovascular: No: Chest Pain, Palpitations, Orthopnea, Paroxysmal Noc. Dyspnea, Edema, Lt Headedness, Other Objective-Cardiology Exam Last Set of Vital Signs Vital Signs 03/30/18 03/30/18 08:00 08:01 Temp 95.6 Pulse 65 Resp 18 B/P (MAP) 113/59 (77) Pulse Ox 92 O2 Delivery Room Air Capillary Refill : Less Than 3 Seconds I&O Intake and Output 03/30/18 00:00 Intake Total 420 ml Output Total 1025 ml Balance -605 ml Intake Oral 420 ml Output Urine Total 1025 ml General: Alert, Oriented X3, Cooperative, No Acute Distress HEENT: Atraumatic, PERRLA Neck: Supple Lungs: Clear to Auscultation, Normal Air Movement Heart: Regular Rate, Normal S1, Normal S2, Other (systolic murmur at the left sternal border) Abdomen: Normal Bowel Sounds, Soft, No Hepatosplenomegaly, No Masses, Other ( diffuse discomfort) Extremities: No Clubbing, No Cyanosis, No Edema, No Tenderness/Swelling, Other (diminished or solids pedis pulse) Skin: No Rashes, No Breakdown, No Significant Lesion Neuro: Normal Gait, Normal Speech, Strength at 5/5 X4 Ext, Normal Tone, Sensation Intact Psych/Mental Status: Mental Status NL, Mood NL Results Lab Laboratory Tests 03/30/18 06:00 A/P-Cardiology Admission Diagnosis chest pain Coronary artery disease Hypertension Hyperlipidemia Assessment/Plan Chest pain, still having chest pain almost on daily basis. He has abdominal pain, had significant LAD lesion. I discussed with Dr. Sheikh the management plan, he is high risk for abdominal surgery. Discussed with the patient and he agreed that if we proceed with a stent placement the surgery will be delayed for 6 months. I will plan to proceed with the cardiac catheterization to more Coronary artery disease history of myocardial infarction and stenting done in the past, cardiac catheterization was done yesterday: 1. Patent stent in the proximal LAD followed by severe stenosis involving the ostium of the first diagonal artery the LAD is about 2 mm in diameter, FFR across the lesion was 0.87-0.9 without Adenosine injection. 2. Otherwise mild coronary artery disease 3. Normal left ventricular size, preserved systolic pressure estimated ejection fraction 60 percent 4. Normal abdominal aorta and renal arteries Patient is still having chest pain, had another episode of chest pain this morning, I we will proceed with stenting of the LAD and a.m., start aggressive IV fluid hydration today Hypertension, continue to monitor blood pressure Hyperlipidemia, continue to monitor lipids COPD, on multiple inhaler. Restart inhalers and monitor Tobaccoism, active smoker, educated on smoking cessation Peripheral arterial disease, monitor for now, need JAQUAN Carotid bruit, need ultrasound Diabetes, restart meds and monitor blood sugar Peripheral neuropathy Abdominal pain, history of recurrent adhesions, was scheduled for exploratory laparotomy, will be postponed for now, patient understand that placement of stent in his LAD will require postponing his abdominal surgery for at least 6 months. He agrees with the procedure. I will plan to proceed with a cardiac catheterization tomorrow Clinical Quality Measures DVT/VTE Risk/Contraindication: Risk Factor Score Per Nursin RFS Level Per Nursing on Admit: 4+=Very High EDIN MARSHALL MD Mar 30, 2018 13:01
[2018-03-30] MEDS ORDERED: ASPIRIN E.C. 325 MG (ECOTRIN) TABLET PO NR (13:15)
[2018-03-30] MEDS ORDERED: TICAGRELOR 90 MG TABLET (BRILINTA) PO NR (13:15)
[2018-03-30] MEDS ORDERED: FLU QUADRIvalent (5+ YOA) 2018-2019 (AFLURIA) 0.5 ML IM ONE (14:52)
[2018-03-30] MEDS: SERTRALINE 100 MG (ZOLOFT) TAB PO SCH (20:47)
[2018-03-30] MEDS: FAMOTIDINE 20 MG (PEPCID) TABLET PO SCH (20:48)
[2018-03-30] MEDS: TICAGRELOR 90 MG TABLET (BRILINTA) PO SCH (20:48)
[2018-03-30] MEDS: LOSARTAN 100 MG (COZAAR) TABLET PO SCH (20:48)
[2018-03-31] VITALS (14 sets, daily range): BP systolic 136–173; BP diastolic 53–99
[2018-03-31] MEDS: HYDROmorphone 2 MG/ML VIAL (DILAUDID) IV SCH ×7 (02:40→21:18)
[2018-03-31] MEDS ORDERED: NITROGLYCERIN 0.4 MG SL TABS BTL 25'S SL ONE (04:15)
[2018-03-31] MEDS: PANTOPRAZOLE 40 MG (PROTONIX) TAB PO SCH (05:20)
[2018-03-31 05:35] LABS: HEMOGLOBIN 15.4 G/DL (13.3-17.7); MEAN PLATELET VOLUME 9.3 FL (7.4-10.4); RED BLOOD COUNT 4.87 10^6/uL (4.35-5.85); WHITE BLOOD COUNT 6.5 10^3/uL (4.3-11.0)
[2018-03-31 06:10] LABS: BUN/CREATININE RATIO 18; CALCIUM 8.9 MG/DL (8.5-10.1); CARBON DIOXIDE 16 MMOL/L (21-32); CHLORIDE 108 MMOL/L (98-107); CREATININE SERUM 0.96 MG/DL (0.60-1.30); GFR ESTIMATED > 60; GLUCOSE 102 MG/DL (70-105); POTASSIUM 4.3 MMOL/L (3.6-5.0); SODIUM 136 MMOL/L (135-145)
[2018-03-31] MEDS: UMECLIDINIUM BROMIDE (INCRUSE ELLIPTA) 7'S IH SCH (07:06)
[2018-03-31] MEDS: RT-ADVAIR HFA 115/21 MCG PER PUFF IH SCH ×2 (07:06→22:55)
[2018-03-31] MEDS: GABAPENTIN 400 MG (NEURONTIN) CAP PO SCH ×3 (08:00→21:19)
--- NOTE | 2018-03-31 08:18 | Cardiology Progress Note ---
Subjective Date Seen by Provider: Mar 31, 2018 Time Seen by Provider: 08:16 Subjective/Events-last exam patient started to have chest pain around 4 a.m. still having active chest pain , given nitroglycerin with slight relief. Shortness of breath and pressure in his chest, EKG did not show any acute changes. Planning to proceed with stenting to the LAD today Review of Systems General: No Chills, No Night Sweats, No Fatigue, No Malaise, No Appetite, No Other HEENT: No Head Aches, No Visual Changes, No Eye Pain, No Ear Pain, No Dysphasia , No Sinus Congestion, No Post Nasal Drip, No Sore Throat, No Other Pulmonary: Dyspnea; No Cough, No Pleuritic Chest Pain, No Other Cardiovascular: Chest Pain; No: Palpitations, Orthopnea, Paroxysmal Noc. Dyspnea, Edema, Lt Headedness, Other Objective-Cardiology Exam Last Set of Vital Signs Vital Signs 03/31/18 03/31/18 03/31/18 03/31/18 03/31/18 00:00 04:29 07:00 07:06 07:10 Temp 96.8 Pulse 49 Resp 18 B/P (MAP) 155/69 (97) Pulse Ox 94 O2 Delivery Room Air Capillary Refill : Less Than 3 Seconds I&O Intake and Output 03/31/18 00:00 Intake Total 2900 ml Output Total 2955 ml Balance -55 ml Intake Oral 1900 ml IV Total 1000 ml Output Urine Total 2955 ml General: Alert, Oriented X3, Cooperative, No Acute Distress HEENT: Atraumatic, PERRLA Neck: Supple Lungs: Clear to Auscultation, Normal Air Movement Heart: Regular Rate, Normal S1, Normal S2, Other (systolic murmur at the left sternal border) Abdomen: Normal Bowel Sounds, Soft, No Hepatosplenomegaly, No Masses, Other ( diffuse discomfort) Extremities: No Clubbing, No Cyanosis, No Edema, No Tenderness/Swelling, Other (diminished or solids pedis pulse) Skin: No Rashes, No Breakdown, No Significant Lesion Neuro: Normal Gait, Normal Speech, Strength at 5/5 X4 Ext, Normal Tone, Sensation Intact Psych/Mental Status: Mental Status NL, Mood NL Results Lab Laboratory Tests 03/31/18 05:26 A/P-Cardiology Admission Diagnosis chest pain Coronary artery disease Hypertension Hyperlipidemia Assessment/Plan Chest pain, still having chest pain almost on daily basis. He has abdominal pain, had significant LAD lesion. I discussed with Dr. Sheikh the management plan, he is high risk for abdominal surgery. Discussed with the patient and he agreed that if we proceed with a stent placement the surgery will be delayed for 6 months. I will proceed with stenting of the LAD especially that he is having active pain Coronary artery disease history of myocardial infarction and stenting done in the past, cardiac catheterization was done yesterday: 1. Patent stent in the proximal LAD followed by severe stenosis involving the ostium of the first diagonal artery the LAD is about 2 mm in diameter, FFR across the lesion was 0.87-0.9 without Adenosine injection. 2. Otherwise mild coronary artery disease 3. Normal left ventricular size, preserved systolic pressure estimated ejection fraction 60 percent 4. Normal abdominal aorta and renal arteries Patient is still having chest pain, will proceed with the stent today Hypertension, continue to monitor blood pressure Hyperlipidemia, continue to monitor lipids COPD, on multiple inhaler. Restart inhalers and monitor Tobaccoism, active smoker, educated on smoking cessation Peripheral arterial disease, monitor for now, need JAQUAN Carotid bruit, need ultrasound Diabetes, restart meds and monitor blood sugar Peripheral neuropathy Abdominal pain, history of recurrent adhesions, was scheduled for exploratory laparotomy, will be postponed for now, patient understand that placement of stent in his LAD will require postponing his abdominal surgery for at least 6 months. He agrees with the procedure. Clinical Quality Measures DVT/VTE Risk/Contraindication: Risk Factor Score Per Nursin RFS Level Per Nursing on Admit: 4+=Very High EDIN MARSHALL MD Mar 31, 2018 08:18
--- NOTE | 2018-03-31 08:19 | Cardiac Procedure Note-CS/ASA ---
Pre-Procedure Note Pre-Op Procedure Note H&P Reviewed The H&P was reviewed, patient examined and no changes noted. Date H&P Reviewed: Mar 31, 2018 Time H&P Reviewed: 08:19 Conscious Sedation Pre-Proced Time 08:19 ASA Score 3 For ASA 3 and 4: Consider anesthesia and medical clearance. Also, for patients with a history of failed moderate sedation consider anesthesia. Airway Lungs Heart ASA score ASA 1: a normal healthy patient ASA 2: a patient with a mild systemic disease (mid diabetes, controlled hypertension, obesity x ASA 3: a patient with a severe systemic disease that limits activity (angina , COPD, prior Myocardial infarction) ASA 4: a patient with an incapacitating disease that is a constant threat to life (CHF, renal failure) ASA 5: a moribund patient not expected to survive 24 hrs. (ruptured aneurysm) ASA 6: a declared brain patient whose organs are being harvested. For emergent operations, add the letter E after the classification Mallampati Classification Grade 3 Sedation Plan Analgesia, Amnesia, Plan communicated to team members, Discussed options with patient/fam, Discussed risks with patient/fam The patient is an appropriate candidate to undergo the planned procedure, sedation, and anesthesia. The patient immediately re-assessed prior to indication. EDIN MARSHALL MD Mar 31, 2018 08:19
[2018-03-31] MEDS: TICAGRELOR 90 MG TABLET (BRILINTA) PO SCH ×2 (08:27→21:19)
[2018-03-31] MEDS: ASPIRIN E.C. 81 MG (ECOTRIN) TAB PO SCH (08:27)
[2018-03-31] MEDS ORDERED: HEParin 1000 UNIT/ML (10ML VIAL) FOR BOLUS ONE (08:43)
[2018-03-31] MEDS ORDERED: HEParin (CATH LAB) 2,000 ML IV ONE (08:43)
[2018-03-31] MEDS ORDERED: LIDOCAINE 1% INJ 20 ML 20 ML VIAL ONE (08:43)
[2018-03-31] MEDS ORDERED: fentaNYL INJECTION 100 MCG/2 ML AMP ONE (08:44)
[2018-03-31] MEDS ORDERED: MIDAZOLAM 5 MG/5 ML (VERSED) VIAL ONE (08:44)
[2018-03-31] MEDS ORDERED: NITRO DRIP 25000 MCG/D5W 250 ML IV ONE (08:51)
[2018-03-31] MEDS ORDERED: NS IV 1000 ML 1,000 ML ONE (09:10)
[2018-03-31] MEDS ORDERED: HYDROmorphone 2 MG/ML VIAL (DILAUDID) ONE (09:16)
[2018-03-31] MEDS: NS IV 1000 ML 1,000 ML IV SCH ×2 (09:37→11:49)
[2018-03-31] MEDS ORDERED: PATIENT MAY USE OWN MEDS, ALL PO SCH (09:45)
--- NOTE | 2018-03-31 09:51 | Cardiac Cath Report ---
Cardiac Cath Report Physician (s)/Candy Cooker Helper (s) Physician EDIN MARSHALL MD Pre-Procedure Diagnosis Pre-Procedure Diagnosis: coronary artery disease, chest pain Post-Procedure Note Procedure Start Date: Mar 31, 2018 Name of Procedure: primary stenting to the LAD Findings/Procedure Note PTCA Artery LAD Pre procedure stenosis 80 percent Post procedure stenosis to 0 percent Catheter used FL 4 Wire used BMW Stent used Karmen 2.5 x 15 millimeter 73 years old gentleman with known coronary artery disease proximal LAD lesion, had abnormal stress test, has been having recurrent chest pain, decided to proceed with intervention to the LAD Patient was placed on the cardiac catheterization laboratory, conscious sedation achieved, local anesthesia applied and 6 [place] sheath was placed in the right femoral artery, FL guide was advanced to the left main, BMW wire was advanced through the LAD, placement of the stent occluded LAD which indicate that the lesion was severe, I proceeded with primary stenting using Karmen 2.5 15 mm, expanded to 2.6 mm distally and 2.75 at the overlap area with a previously placed old stent in the proximal LAD excellent results with no residual stenosis. At the end of the procedure sheath was removed, closure device used Conclusion Successful primary stenting to the proximal LAD across from a diagonal branch using drug-eluting stent Karmen 2.5 x 15 millimeter expanded to 2.75 at the overlap area with an old stent with excellent results no residual stenosis Anesthesia Type: Conscious Sedation Estimated blood loss (mL): 15 ml Contrast Amount: 55 ml Total Radiation Dose: 359 mGy Post-Procedure Diagnosis Post-operative diagnosis: Chest pain Coronary artery disease Hypertension Hyperlipidemia EDIN MARSHALL MD Mar 31, 2018 09:51
--- NOTE | 2018-03-31 10:41 | STRESS TEST ---
DATE OF SERVICE: [facility] STRESS TEST REPORT DICTATION ENDS HERE Job ID: [id number] DocumentID: [id number] Dictated Date: 03/31/2018 10:18:03 Insurance Manager Date: 03/31/2018 10:40:54 Dictated By: EDIN MARSHALL MD
[2018-03-31] MEDS: NICOTINE PATCH REMOVAL TP SCH (11:47)
[2018-03-31] MEDS: meTOproloL SUCCINATE 50 MG (TOPROL XL) TAB PO SCH ×2 (11:47→12:24)
[2018-03-31] MEDS: ATORVASTATIN 20 MG (LIPITOR) TABLET PO SCH (11:49)
[2018-03-31] MEDS: NICOTINE 21 MG (NICODERM) PATCH TD SCH (11:49)
[2018-03-31] MEDS: FLUTICASONE NASAL SPRAY (FLONASE) 16 GM BTL NS SCH (12:02)
[2018-03-31] MEDS: traZODone 150 MG (DESYREL) TABLET PO PRN (21:18)
[2018-03-31] MEDS: FAMOTIDINE 20 MG (PEPCID) TABLET PO SCH (21:19)
[2018-03-31] MEDS: SERTRALINE 100 MG (ZOLOFT) TAB PO SCH (21:19)
[2018-03-31] MEDS: LOSARTAN 100 MG (COZAAR) TABLET PO SCH (21:19)
[2018-04-01] VITALS: BP 147/67
[2018-04-01] MEDS: NS IV 1000 ML 1,000 ML IV SCH (00:08)
[2018-04-01] MEDS: HYDROmorphone 2 MG/ML VIAL (DILAUDID) IV SCH ×4 (00:08→09:58)
[2018-04-01 04:00] VITALS: BP 107/52
[2018-04-01] MEDS: PANTOPRAZOLE 40 MG (PROTONIX) TAB PO SCH (06:29)
[2018-04-01] MEDS: RT-ADVAIR HFA 115/21 MCG PER PUFF IH SCH (07:06)
[2018-04-01 07:07] LABS: HEMOGLOBIN 14.5 G/DL (13.3-17.7); MEAN PLATELET VOLUME 9.4 FL (7.4-10.4); RED BLOOD COUNT 4.7 10^6/uL (4.35-5.85); RED CELL DISTRIBUTION WIDTH 13.7 % (10.0-14.5); WHITE BLOOD COUNT 6.1 10^3/uL (4.3-11.0)
[2018-04-01] MEDS: UMECLIDINIUM BROMIDE (INCRUSE ELLIPTA) 7'S IH SCH (07:07)
[2018-04-01 07:25] LABS: BUN/CREATININE RATIO 15; CALCIUM 8.6 MG/DL (8.5-10.1); CARBON DIOXIDE 21 MMOL/L (21-32); CHLORIDE 106 MMOL/L (98-107); GFR ESTIMATED > 60; GLUCOSE 106 MG/DL (70-105); POTASSIUM 4.3 MMOL/L (3.6-5.0); SODIUM 136 MMOL/L (135-145)
[2018-04-01 08:20] VITALS: BP 129/61
[2018-04-01] MEDS: TICAGRELOR 90 MG TABLET (BRILINTA) PO SCH (08:31)
[2018-04-01] MEDS: meTOproloL SUCCINATE 50 MG (TOPROL XL) TAB PO SCH (08:31)
[2018-04-01] MEDS: ASPIRIN E.C. 81 MG (ECOTRIN) TAB PO SCH (08:32)
[2018-04-01] MEDS: GABAPENTIN 400 MG (NEURONTIN) CAP PO SCH (08:32)
[2018-04-01] MEDS: FLUTICASONE NASAL SPRAY (FLONASE) 16 GM BTL NS SCH (08:33)
[2018-04-01] MEDS: ATORVASTATIN 20 MG (LIPITOR) TABLET PO SCH (08:34)
[2018-04-01] MEDS: NICOTINE 21 MG (NICODERM) PATCH TD SCH (08:34)
[2018-04-01] MEDS: NICOTINE PATCH REMOVAL TP SCH (08:34)
[2018-04-01] MEDS ORDERED: ASPI-983 PO (09:12)
[2018-04-01] MEDS ORDERED: TICA90TA PO (09:12)
--- NOTE | 2018-04-01 09:14 | Discharge Inst-Post CATH ---
Discharge Inst-CATH/EP Post Cardiac Cath/EP D/C Inst Follow Up/Plan Appointment with Dr. Vences's office in 2-4 weeks CARDIAC CATH DISCHARGE INSTRUCTIONS *Hold Metformin for 48 hours post heart cath. ACTIVITY * Go Home directly and rest. * Limit activity of the leg (or wrist if it was used) for 7 days including aerobics, swimming, jogging, bicycling, etc. * Restrict stair-climbing for 7 days if possible, if not, climb up with your non -cath leg, then bring together on the same step. * Avoid lifting, pushing, pulling or excessive movement of the affected extremity for 7 days. * Customary sexual activity may be resumed after 2 days-use caution not to use a position that strains or causes pain to the affected extremity. * No driving for 24 hours. * NO SMOKING. * Avoid straining for bowel movements for 7 days. * Gentle walking on level ground is allowed. * Returning to work will depend on the type of procedure and the results. Your doctor will discuss this with you. CALL YOUR DOCTOR FOR ANY OF THE FOLLOWING: *If bleeding from the puncture site occurs- Apply gentle pressure to site with clean cloth and call your doctor or EMS. * If a knot or lump forms under the skin, increases in size, or causes pain. * If bruising appears to be worsening or moving further down your leg instead of disappearing. * Temperature above 101 F. CARE OF YOUR GROIN INCISION; * Bruising or purple discoloration of the skin near the puncture site is common. * You may shower only, no bathtub bathing for 5 days. Be careful to avoid slipping as your leg may feel stiff. * If a closure device was used on your femoral artery, please see the attached guide regarding care of the device and your leg. * Leave the dressing on, until removed by office staff. CARE OF YOUR WRIST INCISION; * Bruising or purple discoloration of the skin near the puncture site is common. * You may shower. * DO NOT submerge wrist. * Leave dressing on, until removed by office staff.. EDIN VENCES MD Apr 01, 2018 09:14
--- NOTE | 2018-04-01 09:19 | Cardiology Discharge Summary ---
Diagnosis/Chief Complaint Date of Admission Mar 28, 2018 at 09:34 Date of Discharge April 01, 2018 Admission Diagnosis chest pain Coronary artery disease Hypertension Hyperlipidemia Discharge Diagnosis chest pain Coronary artery disease Hypertension Hyperlipidemia Chief Complaint/HPI Chief Complaint/HPI 73 years old gentleman with history of coronary artery disease had history of stent to the LAD. Patient was scheduled for abdominal surgery due to recurrent abdominal pain and history of adhesions. He has been having recurrent chest pain and I was called for consultation preoperative evaluation and decision was made to admit him and proceed with a stress test. Stress test was abnormal and I did a cardiac catheterization which showed a lesion in the proximal LAD beyond the normal stent. I was hesitant to proceed with stenting due to the fact that he is having abdominal pain or require surgery I did FFR at rest and it was not significant, at that point I visited with Dr. Sheikh and with the patient in length and discussed his treatment option and the need for oral anticoagulation for 6 months if we proceed with a stent placement patient initially was hesitant to have the stent due to the significant abdominal pain. On the next day he continued to have recurrent chest pain and the discussion with Dr. Sheikh was regarding the surgery that it might not cure his abdominal pain. He is considered at high risk for surgery. He agreed on having the stent placed, I proceeded with a stent placement yesterday and since then he did not have any further episode of chest pain, of note, during placement of the stent placement of the undeployed stent resulted in limiting the blood flow in the LAD which is an indication on the significance of that disease in the proximal LAD. Post-stent deployment patient has some bruising in his groin. He is feeling well except for groin pain. Still having some abdominal pain. He will go home, educated in length on the importance of taking his medication and keeping his appointment Discharge Summary Hospital Course Hospital Course Chest pain, continued to have chest pain until having the stent placed yesterday , since then no further episodes of chest pain were reported. Bruising in the right groin, having discomfort. No active bleeding at this point Coronary artery disease history of myocardial infarction and stenting done in the past, cardiac catheterization was done yesterday: 1. Patent stent in the proximal LAD followed by severe stenosis involving the ostium of the first diagonal artery the LAD is about 2 mm in diameter, FFR across the lesion was 0.87-0.9 without Adenosine injection. 2. Otherwise mild coronary artery disease 3. Normal left ventricular size, preserved systolic pressure estimated ejection fraction 60 percent 4. Normal abdominal aorta and renal arteries Patient continued to have chest pain, he was brought back to the cardiac catheterization laboratory underwent primary stenting using ERICKA 2.515 mm expanded to 2.7 mm with excellent results. No further episodes of chest pain Hypertension, continue to monitor blood pressure Hyperlipidemia, continue to monitor lipids COPD, on multiple inhaler. Restart inhalers and monitor Tobaccoism, active smoker, educated on smoking cessation Peripheral arterial disease, monitor for now, need JAQUAN Carotid bruit, will evaluate as an outpatient Diabetes, restart meds and monitor blood sugar Peripheral neuropathy Abdominal pain, history of recurrent adhesions, was scheduled for exploratory laparotomy, will be postponed for now, patient understand that placement of stent in his LAD will require postponing his abdominal surgery for at least 6 months. Noncompliance with medication and appointment, educated in length about the importance of compliance with medication and appointments Labs Laboratory Tests 03/30/18 06:00: Carbon Dioxide Level 20L 03/31/18 05:26: Carbon Dioxide Level 16L, Chloride Level 108H 04/01/18 05:27: Glucose Level 106H 04/01/18 07:00: Procedures None. Discharge Physical Examination Allergies: Coded Allergies: NSAIDS (Non-Steroidal Anti-Inflamma (Verified Allergy, Intermediate, GI UPSET, 03/26/18) fentanyl (Verified Allergy, Mild, RASH, 03/26/18) ketorolac (Verified Allergy, Mild, RASH, 03/26/18) metoclopramide (Verified Allergy, Mild, NERVOUSNESS, 03/26/18) morphine (Verified Allergy, Mild, RASH, 03/26/18) Vitals & I&Os Vital Signs Date Time Temp Pulse Resp B/P (MAP) Pulse Ox O2 Delivery O2 Flow Rate FiO2 04/01/18 08:20 97.5 51 18 129/61 (83) 94 Room Air General Appearance: Alert, Oriented X3, Cooperative, No Acute Distress HEENT: Atraumatic, PERRLA Respiratory: Clear to Auscultation, Normal Air Movement Cardiovascular: Regular Rate, Normal S1, Normal S2, No Murmurs Abdominal: Normal Bowel Sounds, Soft, No Tenderness, No Hepatosplenomegaly, No Masses Extremities: No Clubbing, No Cyanosis, No Edema, Normal Pulses, No Tenderness/ Swelling Skin: No Rashes, No Breakdown, No Significant Lesion Neuro: Normal Gait, Normal Speech, Strength at 5/5 X4 Ext, Normal Tone, Sensation Intact, Cranial Nerves 3-12 NL, Reflexes 2+ Psych/Mental Status: Mental Status NL, Mood NL Discharge Home Medications Reviewed and agree with Discharge Medication list on patient's Discharge Instruction sheet Instructions to Patient/Family Please see electronic discharge instructions given to patient. Clinical Quality Measures Admission Status Admission Status: Inpatient Order (span 2 midnights) Reason for Inpatient Admission: patient was having active chest pain, had a stress test which was abnormal then we proceed with cardiac catheterization, initial decision was to postpone the stent placement due to abdominal pain and the need for surgery, due to the recurrent chest pain patient was kept in the hospital and had a stent placement and reported improvement DVT/VTE Risk/Contraindication: Risk Factor Score Per Nursin RFS Level Per Nursing on Admit: 4+=Very High EDIN MARSHALL MD Apr 01, 2018 09:19
== END 2018-04-01 15:15 | disposition home or self-care (01) | DRG 247 ==
LOC: 4TH 09:34 → ICU 03-29 14:02 → 4TH 03-29 18:22
PROVIDERS: ADMIT Internal Medicine Cardiovascular Disease; ATTEND Internal Medicine Cardiovascular Disease
PROC: 4A023N7 Measurement of Cardiac Sampling and Pressure, Left Heart, Percutaneous Approach (ICD-10-PCS; 2018-03-29)
PROC: B2111ZZ Fluoroscopy of Multiple Coronary Arteries using Low Osmolar Contrast (ICD-10-PCS; 2018-03-29)
PROC: B2151ZZ Fluoroscopy of Left Heart using Low Osmolar Contrast (ICD-10-PCS; 2018-03-29)
PROC: 027034Z Dilation of Coronary Artery, One Artery with Drug-eluting Intraluminal Device, Percutaneous Approach (ICD-10-PCS; principal; 2018-03-31)
DX: I25.119 Atherosclerotic heart disease of native coronary artery with unspecified angina pectoris (principal); I25.2 Old myocardial infarction; K66.0 Peritoneal adhesions (postprocedural) (postinfection); I10 Essential (primary) hypertension; E78.5 Hyperlipidemia, unspecified; J44.9 Chronic obstructive pulmonary disease, unspecified; F17.200 Nicotine dependence, unspecified, uncomplicated; K29.50 Unspecified chronic gastritis without bleeding; R10.84 Generalized abdominal pain; I48.91 Unspecified atrial fibrillation; E11.42 Type 2 diabetes mellitus with diabetic polyneuropathy; K21.9 Gastro-esophageal reflux disease without esophagitis; M19.91 Primary osteoarthritis, unspecified site; F32.9 Major depressive disorder, single episode, unspecified; I73.9 Peripheral vascular disease, unspecified; R09.89 Other specified symptoms and signs involving the circulatory and respiratory systems; Z95.5 Presence of coronary angioplasty implant and graft; Z96.641 Presence of right artificial hip joint; Z88.5 Allergy status to narcotic agent; Z88.6 Allergy status to analgesic agent
CPT/HCPCS: 36415; 78452; 80048; 80053; 80061; 84484; 85027; 85347; 85610; 85730; 90471; 90686; 93005; 93017; 93306; 94640; 94760

== ENCOUNTER 2018-07-23 12:30 | Outpatient (CLI) | payer MEDICARE, MEDICAID ==
[~2018-07-23] VITALS: Ht 185.4 cm; Wt 82.2 kg
[~2018-07-23 12:30] MED LIST changes: +ASPI-983 PO; +GABA800T10 PO; -GABA800T2 PO; +LACT10SO PO; +LOSA100T57 PO; -LOSA100T8 PO; +OXYC15TA79 PO; +SODI45SP9 NS; +TICA90TA PO
== END 2018-07-23 13:51 | disposition home or self-care (01) ==
LOC: PREOP 12:30
PROVIDERS: ATTEND Surgery
DX: Z01.818 Encounter for other preprocedural examination (principal)

== ENCOUNTER 2018-07-25 07:50 | Inpatient (IN) | payer MEDICARE, MEDICAID ==
[~2018-07-25] VITALS: Ht 185.4 cm; Wt 89.0 kg
--- OUTSIDE RECORDS SUMMARY | 2018-07-25 07:54 | XMS REPORT ---
Author Author Satish Hurt [facility] Address [address] [place], [place] [id number] Care Team Providers Care Help Desk Associate Name Role Phone Satish Hurt PCP Marco [...] and sensitivity of specimen 06/26/2017 12:00 AM Complete metabolic profile 01/10/2018 12:00 AM Medications Active Name Start Date [...] route 4 times a day as needed sucralfate 1 gram oral tablet 09/05/2017 take 1 tablet by oral route 4 times a day as needed Cymbalta 30 mg oral capsule,delayed release(DR/EC) take [...] per day in the morning and evening Systane (propylene glycol) 0.4-0.3 % ophthalmic (eye) drops 12/24/2017 instill 2 drops in affected eye 3 times a day as needed fluticasone 50 mcg/actuation nasal spray,suspension 12/27/2017 inhale 1 spray (50 mcg) in each nostril by intranasal route once daily Miralax 17 gram/dose oral powder 01/07/2018 use as directed by oral route daily as needed oxycodone 15 mg oral tablet 05/14/2018 05/28/2018 take 1 tablet by oral route QID, may have 1 tablet at HS PRN atorvastatin 20 mg oral tablet 05/14/2018 TAKE ONE TABLET BY MOUTH ONCE DAILY Augmentin 875-125 mg oral tablet 05/20/2018 05/25/2018 take 1 tablet by oral route every 12 hours for 5 days gabapentin 400 mg oral capsule 05/21/2018 TAKE ONE CAPSULE BY MOUTH BID metoprolol succinate 50 mg oral tablet extended release 24 hr 05/21/2018 TAKE ONE TABLET BY MOUTH DAILY gabapentin 800 mg oral tablet 05/21/2018 take 1 tablet (800 mg) by oral route at HS pantoprazole 40 mg oral tablet,delayed release (DR/EC) 05/21/2018 TAKE ONE TABLET BY MOUTH DAILY losartan 100 mg oral tablet 05/21/2018 11/17/2018 take 1 tablet (100 mg) by oral route once daily for 30 days famotidine 40 mg oral tablet 05/21/2018 1 tablet po at HS Name Start Date Expiration Date SIG Comments [...] HC BMI BSA BMI Percentile O2 Sat(%) 05/17/2018 1:29:00 PM 144 mmHg 72 mmHg 70 bpm 18 rpm 98.1 F 73 in 96 % 01/07/2018 1:55:00 PM 130 mmHg 60 mmHg [...] every day smoker assisted living currently at [facility] in [place] Alcohol Former History of Procedures Date Ordered Description Order Status 03/13/2017 12:00 AM X-RAY EXAM OF ABDOMEN Reviewed 10/15/2017 12:00 AM COMPLETE CBC W/AUTO DIFF WBC Reviewed 10/15/2017 12:00 AM COMPREHEN METABOLIC PANEL Reviewed 10/15/2017 12:00 AM LIPID PANEL Reviewed 10/15/2017 12:00 AM ASSAY THYROID STIM HORMONE Reviewed 10/15/2017 12:00 AM ASSAY OF FREE THYROXINE Reviewed 01/07/2018 12:00 AM X-RAY EXAM OF ABDOMEN Reviewed 01/11/2018 12:[address] ABD & PELV W/CONTRAST Returned Results Summary Date and Description Results 10/15/2017 [...] (CALC) 71 TSH 0.47 FREE T4 1.34 03/27/2018 9:39 AM Falls Exclusions Non-ambulatory Falls in last 6 months? Yes Unsteady or worry about falling? No Fall Risk Assessment At Risk History Of Immunizations Not available. 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 History of falling alf medication use History of sudden cardiac arrest successfully resuscitated Alcohol abuse COPD Hypertension Osteoarthritis of hip, unspecified Asthma Chronic pain Nicotine dependence CAD (coronary artery disease) GERD Atrial Fibrillation [place] (myocardial infarction) Low Back Pain Feb 15 2017 9:40AM [...] 1:59PM Chronic pain Jan 07 2018 1:59PM Risk for falls Mar 27 2018 9:39AM Hyperlipidemia May 17 2018 1:39PM CAD May 17 2018 1:39PM Hypertension May 17 2018 1:39PM Chronic pain May 17 2018 1:39PM Sinusitis May 17 2018 1:39PM Anxiety disorder, unspecified May 17 2018 1:39PM Major depressive disorder, single episode, unspecified May 17 2018 1:39PM Mobility impaired May 17 2018 1:39PM Payers Insurance Name Company Name Plan Name Plan Number Policy Number Policy Group Number Start Date Medicare RHC Medicare RHC [id number] N/A [facility] [id number] N/A Medicare Part A Medicare - Lab/Xray [id number] N/A Medicare Part B Medicare Of [place] [id number] N/A [facility] [id number] N/A History of Encounters Visit Date Visit Type Provider 05/17/2018 Office visit Satish Hurt TOP CARRIER 01/07/2018 Office visit Satish Hurt TOP CARRIER 10/15/2017 Office visit Marco Munoz PATROL AGENT 08/09/2017 Office visit Marco Munoz NP 06/26/2017 Office visit Marco Munoz NP 05/25/2017 Office visit Marco Munoz NP 02/14/2017 Office visit Marco Munoz PATROL AGENT
--- OUTSIDE RECORDS SUMMARY | 2018-07-25 07:55 | XMS REPORT ---
Author Author Satish Hurt [facility] Address [address] [place], [place] [id number] Care Team Providers Care Mica Miner Name Role Phone aStish Hurt PCP Marco Munoz PreferredProvider Allergies and [...] directed by oral route daily as needed losartan 100 mg oral tablet 02/19/2018 05/20/2018 take 1 tablet (100 mg) by oral route once daily for 30 days pantoprazole 40 mg oral tablet,delayed release (DR/EC) 02/19/2018 TAKE ONE TABLET BY MOUTH DAILY gabapentin 800 mg oral tablet 02/19/2018 take 1 tablet (800 mg) by oral route at HS oxycodone 15 mg oral tablet 04/16/2018 05/16/2018 take 1 tablet by oral route TID, may have 1 tablet at HS PRN famotidine 40 mg oral tablet 05/13/2018 1 tablet po at HS gabapentin 400 mg oral capsule 05/13/2018 TAKE ONE CAPSULE BY MOUTH BID metoprolol succinate 50 mg oral tablet extended release 24 hr 05/13/2018 TAKE ONE TABLET BY MOUTH DAILY atorvastatin 20 mg oral tablet 05/13/2018 TAKE ONE TABLET BY MOUTH ONCE DAILY Name Start Date Expiration Date SIG Comments [...] every day smoker assisted living currently at [facility] in [place] Alcohol Former History of Procedures Date Ordered [...] Heart disease Atherosclerosis of coronary artery of [place] heart without angina pectoris Alzheimer's Disease Dementia in conditions classified elsewhere without behavioral disturbance Myocardial Infarction, History 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 [id number] N/A Medicare Part A Medicare - Lab/Xray [id number] N/A Medicare Part B Medicare Of [place] [id number] N/A [facility] [id number] N/A History of Encounters Visit Date Visit Type Provider 01/07/2018 Office visit Satish Hurt CIVIL DESIGN TECHNICIAN 10/15/2017 Office visit Marco Munoz LATHE SET UP OPERATOR 08/09/2017 Office visit Marco Munoz LATHE SET UP OPERATOR 06/26/2017 Office visit Marco Munoz NP 05/25/2017 Office visit Marco Munoz NP 02/14/2017 Office visit Marco Munoz LATHE SET UP OPERATOR
--- OUTSIDE RECORDS SUMMARY | 2018-07-25 07:55 | XMS REPORT ---
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 [id number] N/A History of Encounters Visit Date Visit Type Provider 01/07/2018 Office visit Satish Hurt TINNER AUTOMATIC 10/15/2017 Office visit Marco Munoz EXTRUDER OPERATOR VERTICAL 08/09/2017 Office visit Marco Munoz EXTRUDER OPERATOR VERTICAL 06/26/2017 Office visit Marco Munoz NP 05/25/2017 Office visit Marco Munoz NP 02/14/2017 Office visit Marco Munoz EXTRUDER OPERATOR VERTICAL
--- OUTSIDE RECORDS SUMMARY | 2018-07-25 08:11 | XMS REPORT | Continuity of Care Document ---
Author Organization Unknown Address Unknown Allergies Active Description Code Type Severity Reaction Onset Reported/Identified Relationship to Patient Clinical Status Yes fentaNYL Drug N/A N/A Yes Medrol Dosepak Drug N/A N/A Yes NSAIDs 385 Drug N/A N/A Yes Reglan Drug N/A N/ A Yes Toradol Drug N/A N /A Yes COMPAZINE [id number] Fatal Other (Fatal) Yes FENTANYL 4337 Moderate Hives (Moderate) Yes NSAIDS (NON-STEROIDAL ANTI-INFLAMMATORY DRUG) Severe Other (Severe) Yes REGLAN 9230 N/A N/ A Yes Metoclopramide HCl [id number] Drug Allergy Moderate N/A Yes Morphine Sulfate [id number] Drug Allergy Moderate hives Yes NSAIDs [id number] Drug Allergy Moderate N/A Yes Prochlorperazine [id number] Drug Allergy Moderate N/A Yes FENTANYL UNKNOWN [...] Unknown BLEEDING STOMAC 06/03/2014 Yes METOCLOPRAMIDE HCL [id number] Drug Allergy Moderate N/A 07/10/2014 Yes NSAIDS (NON-STEROIDAL ANTI-INFLAMMA [id number] Drug Allergy Moderate N/A Yes PROCHLORPERAZINE [id number] Drug Allergy Mild N/A 07/10/2014 Yes KETOROLAC TROMETHAMINE [id number] Drug Allergy N/A N/A 07/10/2014 Yes METOCLOPRAMIDE HCL [id number] Drug Allergy Moderate N/A 07/10/2014 Yes NSAIDS (NON-STEROIDAL ANTI-INFLAMMA [id number] Drug Allergy Moderate N/A Yes PROCHLORPERAZINE [id number] Drug Allergy Mild N/A 07/10/2014 Yes KETOROLAC TROMETHAMINE [id number] Drug Allergy N/A N/A 07/10/2014 Yes KETOROLAC TROMETHAMINE [id number] Drug Allergy N/A N/A 07/10/2014 Yes METOCLOPRAMIDE HCL [id number] Drug Allergy Moderate N/A 07/10/2014 Yes NSAIDS (NON-STEROIDAL ANTI-INFLAMMA J376346557 Drug Allergy Moderate N/A Yes PROCHLORPERAZINE [id number] Drug Allergy Mild N/A 07/10/2014 Yes KETOROLAC TROMETHAMINE [id number] Drug Allergy N/A N/A 07/10/2014 Yes METOCLOPRAMIDE HCL [id number] Drug Allergy Moderate N/A 07/10/2014 Yes NSAIDS (NON-STEROIDAL ANTI-INFLAMMA [id number] Drug Allergy Moderate N/A Yes PROCHLORPERAZINE [id number] Drug Allergy Mild N/A 07/10/2014 Yes METOCLOPRAMIDE HCL [id number] Drug Allergy Moderate N/A 07/10/2014 Yes NSAIDS (NON-STEROIDAL ANTI-INFLAMMA L950673738 Drug Allergy Moderate N/A Yes MORPHINE [id number] Drug Allergy Mild N/A 07/10/2014 Yes PROCHLORPERAZINE I359475375 Drug Allergy Mild N/A 07/10/2014 Yes KETOROLAC TROMETHAMINE [id number] Drug Allergy N/A N/A 07/10/2014 Yes MORPHINE W708191207 Drug Allergy Severe HIVES 06/16/2015 Yes MORPHINE [id number] Drug Allergy Severe HIVES 06/16/2015 Yes MORPHINE [id number] Drug Allergy Severe HIVES 06/16/2015 Yes MORPHINE [id number] Drug Allergy Severe HIVES 06/16/2015 Yes MORPHINE [id number] Drug Allergy Severe HIVES 06/16/2015 Yes prochlorperazine maleate L916536069 Drug Allergy Severe N/A 07/01/2015 Yes metoclopramide HCl K384025155 Drug Allergy Severe N/A 09/27/2015 Yes morphine W888797558 Drug Allergy Severe N/A 09/27/2015 Yes prochlorperazine edisylate A128087403 Drug Allergy Severe N/A 2015 Yes cefazolin S185127919 Drug Allergy Unknown N/A 10/26/2015 Yes ketorolac [id number] Drug Allergy N/A N/A 05/31/2016 Yes metoclopramide P776832316 Drug Allergy N/A N/A 05/31/2016 Yes morphine [id number] Drug Allergy N/A N/A 05/31/2016 Yes prochlorperazine R953860136 Drug Allergy N/A N/A 05/31/2016 Yes aspirin aspirin Drug Allergy Unknown NONE 10/05/2016 Yes metoclopramide HCl metoclopramide HCl Drug Allergy Unknown NONE 2016 Yes morphine morphine Drug Allergy Unknown NONE 10/05/2016 Yes NSAIDS (Non-Steroidal Anti-Inflamma NSAIDS (Non- Steroidal Anti-Inflamma Drug Allergy Unknown NONE 10/05/2016 Yes prochlorperazine edisylate prochlorperazine edisylate Drug Allergy Unknown NONE 10/05/2016 Yes fentanyl [id number] Drug Allergy Unknown N/A 02/04/2018 Yes ketorolac W851176296 Drug Allergy Unknown N/A 02/04/2018 Yes metoclopramide F529954158 Drug Allergy Unknown N/A 02/04/2018 Yes morphine J341613468 Drug Allergy Unknown N/A 02/04/2018 Yes NSAIDS (Non-Steroidal Anti-Inflamma [id number] Drug Allergy Unknown N/A Yes NSAIDS (Non-Steroidal Anti-Inflamma I680337254 Drug Allergy Moderate GI UPSET 03/26/2018 Yes fentanyl W223110479 Drug Allergy Mild RASH 03/26/2018 Yes ketorolac U108103991 Drug Allergy Mild RASH 03/26/2018 Yes metoclopramide U552248197 Drug Allergy Mild NERVOUSNESS 03/26/2018 Yes morphine J856085939 Drug Allergy Mild RASH 03/26/2018 Medications Medication [...] 07/27/2017 08/25/2017 Daily&0900 MultiVits (Thera M Plus) (irpvuufv-cvse-pynjfrf) oral tablet TAB 07/27/2017 08/25/2017 Daily&0900 SALINE NASAL MIST LIQ (OCEAN SPRAY) Dose(s) 07/27/2017 08/06/2017 PRN QAM THIAMINE TAB 100 MG (VITAMIN B1) MG 07/27/2017 08/02/2017 Daily&0900 BISACODYL SUPPOS 10 MG (DULCOLAX SUPPOS) MG 07/27/2017 08/26/2017 PRN Daily CYANOCOBALAMIN TAB 1000 MCG (VIT B 12) MCG 07/27/2017 08/02/2017 Daily&0900 NICOTINE PATCH PAT 21 MG (NICODERM) MG 07/27/2017 08/25/2017 Daily&0900 Fuijrtbd-jyus-ibz-folic acid) tab,CHEWable (Centrum) TAB 07/27/2017 08/25/2017 Daily&0900 [...] 08/01/2017 08/07/2017 Daily&0900 MultiVits (Thera M Plus) (dakfyyug-ckjo-ytmqnsu) oral tablet TAB 08/01/2017 08/30/2017 Daily&0900 THIAMINE [...] CONTUSION OF HIP 01/19/2012 Other 959.8 INJURY BUSINESS TAXES SPECIALIST SITE/SITE NEC 01/19/2012 Other E849.0 ACCIDENT IN HOME 01/19/2012 Other E885.9 FALL FROM SLIPPING, TRIPPING, OR STUMBLING NEC 03/29/2012 Other 496 CHR AIRWAY OBSTRUCT NEC 05/15/2012 Other 401.9 HYPERTENSION NOS 05/15/2012 Other 496 CHR AIRWAY OBSTRUCT NEC 05/15/2012 Other V76.44 SCREEN MAL NEOP-PROSTATE 06/19/2012 Other 338.11 ACUTE PAIN DUE TO TRAUMA 06/19/2012 Other 924.01 CONTUSION OF HIP 06/19/2012 Other 959.8 INJURY BUSINESS TAXES SPECIALIST SITE/SITE NEC 06/19/2012 Other E849.0 ACCIDENT IN HOME 06/19/2012 Other E888.9 FALL NOS 06/19/2012 Other V58.63 LONG-TERM (CURRENT)USE OF ANTIPLATELET/ANTITHROMBOTIC 04/03/2013 NICKOLAS ROMERO, AWAIS R Ot 724.2 LUMBAGO 04/15/2013 CARROLL BROTHERS DO Ot 338.4 CHRONIC PAIN SYNDROME 04/15/2013 [...] 724.5 BACKACHE NOS 05/27/2013 Reginaldo Oliveira DO R External E849.0 HOME ACCIDENTS 05/27/2013 Reginaldo [...] NOS 07/25/2013 Other 414.01 CORONARY ATHEROSCLEROSIS OF [place] CORONARY VESSEL 07/25/2013 Other 427.61 ATRIAL PREMATURE [...] LESS THAN 19, ADULT 08/01/2013 FALGUNI LING 97332 RECUR DEPR PSYCH-SEVERE 08/13/2013 Other 311 DEPRESSIVE DISORDER NEC 08/13/2013 Other 401.1 BENIGN HYPERTENSION 08/13/2013 Other 496 CHR AIRWAY OBSTRUCT NEC 08/13/2013 Other 530.81 ESOPHAGEAL REFLUX 08/19/2013 Other 719.45 JOINT PAIN-PELVIS 08/19/2013 Other 724.2 LUMBAGO 08/20/2013 Other 724.2 LUMBAGO 08/21/2013 Other 309.0 ADJUSTMENT DISORDER WITH DEPRESSED MOOD 08/21/2013 Other 724.2 LUMBAGO 09/01/2013 DENEEN DOCARROLL A Ot 724.2 LUMBAGO 09/01/2013 CARROLL BROTHERS DO [...] NEC/NOS 07/21/2014 Other 414.01 CORONARY ATHEROSCLEROSIS OF [place] CORONARY VESSEL 07/21/2014 Other 496 CHR AIRWAY [...] Other 414.00 CORON ATHEROSCLER NOS TYPE VESSEL, [place] OR GRAFT 08/06/2014 Other 427.31 ATRIAL FIBRILLATION [...] SABINA SALINAS MD 414.01 CORONARY ATHEROSCLEROSIS OF [place] CORONARY VESSEL 09/03/2014 SABINA SALINAS MD 427.31 [...] JASBIR BAÑUELOS MD 414.01 CORONARY ATHEROSCLEROSIS OF [place] CORONARY VESSEL 09/04/2014 JASBIR BAÑUELOS MD 427.31 [...] MD 338.29 OTHER CHRONIC PAIN 09/04/2014 JASBIR ABÑUELOS MD 401.9 HYPERTENSION NOS 09/04/2014 JASBIR BAÑUELOS MD A 414.01 CORONARY ATHEROSCLEROSIS OF [place] CORONARY VESSEL 09/04/2014 JASBIR BAÑUELOS MD A [...] BAÑUELOS MD Other 414.01 CORONARY ATHEROSCLEROSIS OF [place] CORONARY VESSEL 09/04/2014 JASBIR BAÑUELOS MD Other [...] BAÑUELOS MD Other 414.01 CORONARY ATHEROSCLEROSIS OF [place] CORONARY VESSEL 09/04/2014 JASBIR BAÑUELOS MD Other [...] JASBIR BAÑUELOS MD 414.01 CORONARY ATHEROSCLEROSIS OF [place] CORONARY VESSEL 09/04/2014 JASBIR BAÑUELOS MD 427.31 ATRIAL FIBRILLATION 09/04/2014 JASBIR BAÑUELOS MD 429.2 ASCVD 09/04/2014 JASBIR BAÑUELOS MD 438.20 LATE EFF-CEREBR DIS,HEMIPLEGIA AFFECTING UNSPECIFIED [...] 272.4 HYPERLIPIDEMIA NEC/NOS 09/08/2014 JASBIR BAÑUELOS MD 280.0 CHR BLOOD LOSS ANEMIA 09/08/2014 JASBIR BAÑUELOS MD 285.1 AC POSTHEMORRHAG ANEMIA 09/08/2014 JSABIR BAÑUELOS MD 300.00 ANXIETY STATE NOS 09/08/2014 JASBIR BAÑUELOS MD 311 DEPRESSIVE DISORDER NEC 09/08/2014 JASBIR BAÑUELOS MD 338.29 OTHER CHRONIC PAIN 09/08/2014 JASBIR BAÑUELOS MD 401.9 HYPERTENSION NOS 09/08/2014 JASBIR BAÑUELOS MD Other 414.01 CORONARY ATHEROSCLEROSIS OF [place] CORONARY VESSEL 09/08/2014 JASBIR BAÑUELOS MD 427.31 ATRIAL FIBRILLATION 09/08/2014 JASBIR BAÑUELOS MD 429.2 ASCVD 09/08/2014 JASBIR BAÑUELOS MD Other 438.20 LATE EFF-CEREBR DIS,HEMIPLEGIA AFFECTING UNSPECIFIED SIDE 09/08/2014 JASBIR BAÑUELOS MD 496 CHR AIRWAY OBSTRUCT NEC 09/08/2014 JASBIR BAÑUELOS MD 530.81 ESOPHAGEAL REFLUX 09/08/2014 JASBIR BAÑUELOS MD Other 536.8 STOMACH FUNCTION DIS NEC 09/08/2014 JASBIR BAÑUELOS MD Other 600.00 HYPERTROPHY (BENIGN) OF PROSTATE W/O URINARY OBST OTH LUTS 09/08/2014 JASBIR BAÑUELOS MD 724.2 LUMBAGO 09/08/2014 JASBIR BAÑUELOS MD Other 799.23 IMPULSIVENESS 09/08/2014 JASIBR BAÑUELOS MD Other 820.8 FX NECK OF [...] Other 414.00 CORON ATHEROSCLER NOS TYPE VESSEL, [place] OR GRAFT 11/13/2014 SOPHIE DSILA APRN Other 427.31 ATRIAL FIBRILLATION 11/13/2014 SOPHIE [...] Other 300.02 GENERALIZED ANXIETY DIS 11/16/2014 MARVIN MRECEDES DO Other 724.2 LUMBAGO 11/16/2014 MARVIN MERCEDES [...] MARVIN MERCEDES DO Other Y92.[address] [facility] NON-INSTITUTIONAL RESIDENCE PLACE 02/02/2015 SHADY MORELAND MD [...] BECKWITH PA-C Other Y92.[address] IN [facility] NON-INSTITUT (PRIVATE) RESIDENCE PLACE 03/07/2015 VASILE BECKWITH PA-C Other F10.120 ALCOHOL ABUSE WITH INTOXICATION, UNCOMPLICATED 03/07/2015 VASILE BECKWITH PA-C Other M54.9 DORSALGIA, UNSPECIFIED 03/07/2015 VASILE BECKWITH PA-C Other R41.0 DISORIENTATION, UNSPECIFIED 04/19/2015 DANI MA MD Other S39.92XA UNSPECIFIED INJURY OF LOWER BACK, INITIAL ENCOUNTER 04/19/2015 DANI MA MD Other W18.30XA FALL ON SAME LEVEL, UNSPECIFIED, INITIAL ENCOUNTER 04/19/2015 FRANCESCA ROMERO, DANI Coby Other Y92.[address] IN SINGLE-FAMILY (PRIVATE) HOUSE PLACE 04/21/2015 OSWALDO ROMERO, LIZBETH WRIGHT R10.84 GENERALIZED ABDOMINAL PAIN 04/21/2015 LIZBETH COLBERT MD R41.3 OTHER AMNESIA 04/21/2015 Oswaldo ROMERO, Lizbeth [...] CRISIS OR STORM 04/28/2015 SHADY MORELAND MD R41.82 ALTERED MENTAL STATUS, UNSPECIFIED 05/11/2015 LIZBETH COLBERT MD Other E87.6 HYPOKALEMIA 05/11/2015 LIZBETH COLBERT MD Other F10.10 ALCOHOL ABUSE, UNCOMPLICATED 05/11/2015 LIZBETH COLBERT MD Other R41.82 ALTERED MENTAL STATUS, UNSPECIFIED 05/11/2015 LIZBETH COLBERT MD R55 SYNCOPE AND COLLAPSE 05/11/2015 LIZBETH COLBERT MD Other Z79.899 OTHER ASSISTED (CURRENT) DRUG THERAPY 05/12/2015 Oswaldo ROMERO, Lizbeth [...] NOÉ SHELTON MD Other Y92.002 BATHRM OF [facility] PLACE 05/19/2015 NOÉ SHELTON [...] INITIAL ENCOUNTER 05/23/2015 REGINALDO THAYER Other Y92.[address] [facility] PL[address] IN SINGLE-FAMILY (PRIVATE) HOUSE PLACE 05/24/2015 MACIE HERNÁNDEZ P R43960 ASSISTED (CURRENT) USE OF OPIATE ANALGESIC 05/25/2015 OSWALDO ROMERO, LIZBETH Queen Ot I67.82 05/25/2015 OSWALDO ROMERO, LIZBETH Queen Ot R41.2 05/25/2015 OSWALDO ROMERO, LIZBETH Queen Ot R41.3 05/28/2015 Ot 305.1 05/28/2015 Ot 401.9 05/28/2015 Ot 496 05/28/2015 Ot 786.50 05/28/2015 OSWALDO ROMERO, LIZBETH Queen Ot I67.82 05/28/2015 OSWALDO ROMERO, LIZBETH Queen Ot R41.2 05/28/2015 OSWALDO ROMERO, LIZBETH M Ot R41.3 06/16/2015 KEYA JENKINS DO Ot M94.0 CHONDROCOSTAL JUNCTION SYNDROME [TIETZE] 06/16/2015 KEYA JENKINS DO Ot R07.89 OTHER CHEST PAIN 06/17/2015 SHADY MORELAND MD F32.9 MAJOR DEPRESSIVE DISORDER, SINGLE EPISODE, UNSPECI 06/17/2015 SHADY MORELAND MD F41.9 ANXIETY DISORDER, UNSPECIFIED 06/17/2015 SHADY MORELAND MD I10 ESSENTIAL (PRIMARY) HYPERTENSION 06/17/2015 SHADY MORELAND MD I25.118 ATHSCL HEART DISEASE OF [place] COR ART W OTH ANG P 06/17/2015 [...] MORELAND MD I25.118 ATHSCL HEART DISEASE OF [place] COR ART W OTH ANG PCTRS 06/17/2015 [...] PA-C R07.89 OTHER CHEST PAIN 06/18/2015 VASILE BECKWITH-C DG Z79.891 MILL TENDER SECOND OPERATOR (CURRENT) USE OF OPIATE ANALGESIC 06/18/2015 VASILE BECKWITH PA-C Other R07.89 OTHER CHEST PAIN 06/18/2015 VASILE BECKWITHC Other Z79.891 ASSISTED (CURRENT) USE OF OPIATE ANALGESIC 06/23/2015 KEYA [...] MORELAND MD I25.10 ATHSCL HEART DISEASE OF [place] CORONARY ARTERY W/O 06/29/2015 SHADY MORELAND MD R07.89 OTHER CHEST PAIN 06/29/2015 SHADY MORELAND MD F11.20 OPIOID DEPENDENCE, UNCOMPLICATED 06/29/2015 SHADY MORELAND MD I25.10 ATHSCL HEART DISEASE OF [place] CORONARY ARTERY W/O ANG PCTRS 06/29/2015 MERLY [...] 08/30/2015 VASILE BECKWITH PA-C Other Z79.899 OTHER ASSISTED (CURRENT) DRUG THERAPY 09/27/2015 Ot F10.120 ALCOHOL [...] 10/23/2015 MANUELA WILBURN APRN Other Z79.899 OTHER MILL TENDER SECOND OPERATOR (CURRENT) DRUG THERAPY 10/26/2015 NICKOLAS ROMERO, AWAIS Zapata Ot S70.02XA CONTUSION OF LEFT HIP, INITIAL ENCOUNTER 10/29/2015 AWAIS OLMOS MD R Ot S70.02XA CONTUSION OF LEFT HIP, INITIAL ENCOUNTER 11/04/2015 MACIE HERNÁNDEZ Z79.891 MILL TENDER SECOND OPERATOR (CURRENT) USE OF OPIATE ANALGESIC 11/19/2015 JOEY GARCIA MD Other F10.180 ALCOHOL ABUSE WITH ALCOHOL-INDUCED ANXIETY DISORDER 11/19/2015 JOEY GARCIA MD Other F32.9 MAJOR DEPRESSIVE DISORDER, SINGLE EPISODE, UNSPECIFIED 11/19/2015 JOEY GACRIA MD Other I25.10 ATHSCL HEART DISEASE OF [place] CORONARY ARTERY W/O ANG PCTRS 11/19/2015 JOEY [...] F17.210 NICOTINE DEPENDENCE, CIGARETTES, UNCOMPLICATED 11/23/2015 DEBORAH ROMREO, STEVEN Castro Other 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, RECURRENT SEVERE W/O PSYCH FEATURES 11/23/2015 DEBORAH ROMERO, STEVEN Castro Other I10 ESSENTIAL (PRIMARY) HYPERTENSION 11/23/2015 DEBORAH ROMERO, STEVEN Castro Other I25.10 ATHSCL HEART DISEASE OF [place] CORONARY ARTERY W/O ANG PCTRS 11/23/2015 DEBORAH [...] PAIN 12/25/2015 KULWANT GARCIA Other Z79.899 OTHER MILL TENDER SECOND OPERATOR (CURRENT) DRUG THERAPY 12/27/[address]ER DO I10 ESSENTIAL (PRIMARY) HYPERTENSION 12/27/2015 MITRA STREETER DO R06.02 SHORTNESS OF BREATH 12/27/2015 MITRA STREETER DO R07.9 CHEST PAIN, UNSPECIFIED 12/27/[address]ER DO Other I10 ESSENTIAL (PRIMARY) HYPERTENSION 12/27/2015 NEDICH DO, MITRA L Other R06.02 SHORTNESS OF BREATH 12/27/2015 NEDICH DO MITRA L Other R07.9 CHEST PAIN, UNSPECIFIED 01/06/2016 JOSE CARLSON Alfonso PIPE FITTER WELDING-C Other E04.9 NONTOXIC GOITER, UNSPECIFIED 01/19/2016 NEDICH [...] 01/21/2016 WEI SMITH MD Other Z79.899 OTHER MILL TENDER SECOND OPERATOR (CURRENT) DRUG THERAPY 01/21/2016 WEI SMITH MD Other Z88.5 ALLERGY STATUS TO NARCOTIC AGENT STATUS 01/25/2016 DAVE JARVIS DO Other F10.120 ALCOHOL ABUSE WITH INTOXICATION, UNCOMPLICATED 01/25/2016 DAVE JARVIS DO Other R45.851 SUICIDAL IDEATIONS 01/25/2016 DAVE JARVIS DO Other Y90.9 PRESENCE OF ALCOHOL IN BLOOD, LEVEL NOT SPECIFIED 01/25/2016 DAVE JARVIS DO Other Z79.51 ASSISTED (CURRENT) USE OF INHALED STEROIDS 01/25/2016 DAVE JARVIS DO Other Z79.82 ASSISTED (CURRENT) USE OF ASPIRIN 02/04/[address] [...] HISTORY OF FALLING 02/29/2016 MACIE HERNÁNDEZ Z79.891 ASSISTED (CURRENT) USE OF OPIATE ANALGESIC 03/23/2016 ALBA COLLINS DO Other M25.559 PAIN IN UNSPECIFIED HIP 03/23/2016 ALBA COLLINS DO Other M25.559 PAIN IN UNSPECIFIED HIP 03/30/2016 ALBA COLLINS DO Other M25.559 PAIN IN UNSPECIFIED HIP 03/31/2016 ALBA COLLINS DO Other M25.559 PAIN IN UNSPECIFIED HIP 03/31/2016 ALBA COLLINS DO M25.551 PAIN IN RIGHT HIP 03/31/2016 ALBA COLLINS DO Other M25.559 PAIN IN UNSPECIFIED HIP 03/31/2016 ALBA COLLINS DO Other Z96.641 PRESENCE OF RIGHT ARTIFICIAL HIP JOINT 04/04/2016 ALBA COLLINS DO M25.559 PAIN IN UNSPECIFIED HIP 04/04/2016 KARINA AGUILAALBA Other M25.551 PAIN IN RIGHT HIP 04/07/2016 KARINA AGUILAALBA Other M25.559 PAIN IN UNSPECIFIED HIP 04/07/2016 KARINA AGUILAALBA Other M25.551 PAIN IN RIGHT HIP 04/07/2016 KARINA AGUILAALBA Other M25.559 PAIN IN UNSPECIFIED HIP 04/07/2016 KARINA AGUILAALBA Other M25.551 PAIN IN RIGHT HIP 04/25/2016 MACEI HERNÁNDEZ P Z79.891 ASSISTED (CURRENT) USE OF OPIATE ANALGESIC 05/26/2016 MANUELA WILBURN APRN F10.129 ALCOHOL ABUSE WITH INTOXICATION, UNSPECIFIED 05/26/2016 MANUELA WILBURN APRN T50.902A POISONING BY UNSP DRUG/MEDS/BIOL SUBST, SELF-HARM, 05/26/2016 MANUELA WILBURN APRN Z79.899 OTHER MILL TENDER SECOND OPERATOR (CURRENT) DRUG THERAPY 05/31/2016 MITZI BARAJAS MD [...] BARAJAS MD I25.10 ATHSCL HEART DISEASE OF [place] CORONARY ARTERY W/O ANG PCTRS 05/31/2016 MITZI [...] M48.07 SPINAL STENOSIS, LUMBOSACRAL REGION 06/14/2016 ROMAINE HRARIS MD Other M51.37 OTHER INTERVERTEBRAL DISC DEGENERATION, LUMBOSACRAL REGION 06/14/2016 ROMAINE HARRIS MD Other R45.851 SUICIDAL IDEATIONS 06/25/2016 NOÉ SHELTON MD Other R07.89 OTHER CHEST PAIN 06/25/2016 NOÉ SHELTON MD Other R45.851 SUICIDAL IDEATIONS 06/25/2016 NOÉ SHELTON MD Other Z88.5 ALLERGY STATUS TO NARCOTIC AGENT STATUS 07/06/2016 GILLIAN ROMERO, RONY Hamilton D72.829 Elevated white blood cell count, unspecified [...] D75.1 SECONDARY POLYCYTHEMIA 08/18/[address] MITRA [address]RE[address]ER DO DG E78.5 HYPERLIPIDEMIA, UNSPECIFIED 08/18/2016 MITRA [address]RE[address]ER [...] Other F10.10 ALCOHOL ABUSE, UNCOMPLICATED 10/18/2016 ESTRELLA RYANRASHMI Other J44.1 CHRONIC OBSTRUCTIVE PULMONARY DISEASE W (ACUTE) EXACERBATION 10/18/2016 ESTRELLA RYANRASHMI Other R07.9 CHEST PAIN, UNSPECIFIED 10/18/2016 ESTRELLA RYANRASHMI Other Y90.6 BLOOD ALCOHOL LEVEL OF 120-199 MG/100 ML 10/18/2016 ESTRELLA RYAN RASHMI Dominique Other Z79.899 OTHER ASSISTED (CURRENT) DRUG THERAPY 11/08/2016 SOPHIE DISLA APRN R07.9 CHEST PAIN, UNSPECIFIED 11/08/2016 SOPHIE DISLA APRN R51 HEADACHE 11/08/2016 SOPHIE DISLA APRN Z79.899 OTHER MILL TENDER SECOND OPERATOR (CURRENT) DRUG THERAPY 11/09/2016 DAVE JARVIS DO Other F11.20 OPIOID DEPENDENCE, UNCOMPLICATED 11/09/2016 DAVE JARVIS DO Other R45.851 SUICIDAL IDEATIONS 11/09/2016 DAVE JARVIS DO Other Z79.51 MILL TENDER SECOND OPERATOR (CURRENT) USE OF INHALED STEROIDS 11/09/2016 DAVE JARVIS DO Other Z79.899 OTHER MILL TENDER SECOND OPERATOR (CURRENT) DRUG THERAPY 11/22/2016 RONY FRENCH MD E78.5 Hyperlipidemia, unspecified 11/22/2016 RONY FRENCH MD F33.2 Major depressv disorder, recurrent severe w/o psych features 11/22/2016 RONY FRENCH MD I10 Essential (primary) hypertension 11/22/2016 RONY FRENCH MD I25.10 Athscl heart disease of [place] coronary artery w/o ang pctrs 11/22/2016 RONY [...] FRENCH MD I25.10 Athscl heart disease of [place] coronary artery w/o ang pctrs 12/14/2016 RONY [...] AND GIDDINESS 12/22/2016 SULY SOUZA MD Z79.51 ASSISTED (CURRENT) USE OF INHALED STEROIDS 12/22/2016 SULY [...] HANNAH OCONNELL I25.10 Atherosclerotic heart disease of [place] coronary artery without angina pectoris 01/03/2017 HANNAH [...] SUICIDAL IDEATIONS 02/05/2017 WEI SMITH MD Z79.1 MILL TENDER SECOND OPERATOR (CURRENT) USE OF NON-STEROIDAL NON-INFLA 02/05/2017 WEI SMITH MD Z79.51 ASSISTED (CURRENT) USE OF INHALED STEROIDS 02/05/2017 WEI SMITH MD Z79.899 OTHER MILL TENDER SECOND OPERATOR (CURRENT) DRUG THERAPY 02/13/2017 RONY FRENCH MD F17.210 Nicotine dependence, cigarettes, uncomplicated 02/13/2017 RONY FRENCH MD F33.2 Major depressv disorder, recurrent severe w/o psych features 02/13/2017 GILLIAN ROMERO, RONY Hamilton G89.29 Other chronic pain 02/13/2017 GILILAN ROMERO, RONY Hamilton I10 Essential (primary) hypertension 08/02/2017 Bryant, Johnny W 294.21 08/02/2017 Bryant, Johnny W 300.02 08/02/2017 Bryant Johnny W 303.90 08/02/2017 Bryant Johnny W 305.1 TOBACCO USE DISORDER 08/02/2017 [...] Hurtadob W I25.10 ATHSCL HEART DISEASE OF [place] CORONARY ARTERY W/O ANG PCTRS 08/02/2017 Bryant, Johnny W I48.91 UNSPECIFIED ATRIAL FIBRILLATION 08/02/2017 BryantKeven barragnab W 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 08/02/2017 Bryant, Johnny W J44.9 CHRONIC OBSTRUCTIVE PULMONARY DISEASE, UNSPECIFIED 08/02/2017 Bryant, Johnny W K21.9 GASTRO-ESOPHAGEAL REFLUX DISEASE WITHOUT ESOPHAGITIS 08/02/2017 Keven Hurtadob W M54.9 DORSALGIA, UNSPECIFIED 08/02/2017 Bryant Johnny W N40.0 BENIGN PROSTATIC HYPERPLASIA WITHOUT LOWER URINRY TRACT SYMP 08/02/2017 Bryant Johnny W Z72.0 TOBACCO USE 01/17/2018 SATISH MIRELES PIPE FITTER WELDING Ot K31.89 OTHER DISEASES OF STOMACH AND DUODENUM 01/17/2018 SATISH MIRELES APRN Ot K57.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/O PERFORATION OR AB 01/17/2018 SATISH MIRELES APRN Ot K59.00 CONSTIPATION, UNSPECIFIED 01/17/2018 SATISH MIRELES APRN Ot K31.89 OTHER [...] DO B Ot E78.5 HYPERLIPIDEMIA, UNSPECIFIED 02/04/2018 TAISHA CINTRON DO B Ot F17.200 NICOTINE [...] K20.9 ESOPHAGITIS, UNSPECIFIED 02/04/2018 TAISHA CINTRON DO B Ot K21.9 GASTRO-ESOPHAGEAL REFLUX DISEASE WITHOUT 02/04/2018 TAISHA CINTRON DO B Ot K29.70 GASTRITIS, UNSPECIFIED, WITHOUT BLEEDING 02/04/2018 DELMAN DO, TAISHA B Ot K31.7 POLYP OF STOMACH AND DUODENUM 02/04/2018 ABDULAZIZ AGUILA TAISHA B Ot K44.9 DIAPHRAGMATIC HERNIA WITHOUT OBSTRUCTION 02/04/2018 ABDULAZIZ AGUILA TAISHA B Ot Z79.899 OTHER ASSISTED (CURRENT) DRUG THERAPY 02/08/2018 KEIRA CINTRON DOIC B Ot E78.5 HYPERLIPIDEMIA, UNSPECIFIED 02/08/2018 ABDULAZIZ AGUILA TAISHA B Ot F17.200 NICOTINE DEPENDENCE, UNSPECIFIED, UNCOMP 02/08/2018 ABDULAZIZ AGUILA TAISHA B Ot F32.9 MAJOR DEPRESSIVE DISORDER, SINGLE EPISOD 02/08/2018 KEIRA CINTRON DOIC B Ot G62.9 POLYNEUROPATHY, UNSPECIFIED 02/08/2018 ABDULAZIZ AGUILA TAISHA B Ot I10 ESSENTIAL (PRIMARY) HYPERTENSION 02/08/2018 KEIRA CINTRON DOIC B Ot 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 AFFECT 02/08/2018 KEIRA CINTRON DOIC B Ot J44.9 CHRONIC OBSTRUCTIVE PULMONARY DISEASE, U 02/08/2018 KEIRA CINTRON DOIC B Ot K20.9 ESOPHAGITIS, UNSPECIFIED 02/08/2018 KEIRA CINTRON DOIC B Ot K21.9 GASTRO-ESOPHAGEAL REFLUX DISEASE WITHOUT 02/08/2018 ABDULAZIZ AGUILA TAISHA B Ot K29.70 GASTRITIS, UNSPECIFIED, WITHOUT BLEEDING 02/08/2018 KEIRA CINTRON DOIC B Ot K31.7 POLYP OF STOMACH AND DUODENUM 02/08/2018 KEIRA CINTRON DOIC B Ot K44.9 DIAPHRAGMATIC HERNIA WITHOUT OBSTRUCTION 02/08/2018 KEIRA CINTRON DOIC B Ot Z79.899 OTHER ASSISTED (CURRENT) DRUG THERAPY 02/14/2018 SATISH MIRELES PIPE FITTER WELDING Ot K31.89 OTHER DISEASES OF STOMACH AND DUODENUM 02/14/2018 SATISH MIRELES APRN Ot K57.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/O PERFORATION OR AB 02/14/2018 SATISH MIRELES APRN Ot K59.00 CONSTIPATION, UNSPECIFIED 02/17/2018 ABDULAZIZ AGUILA TAISHA B Ot E78.5 HYPERLIPIDEMIA, UNSPECIFIED 02/17/2018 ABDULAZIZ AGUILA TAISHA B Ot F17.200 NICOTINE DEPENDENCE, UNSPECIFIED, UNCOMP 02/17/2018 ABDULAZIZ AGUILA TAISHA B Ot F32.9 MAJOR DEPRESSIVE DISORDER, SINGLE EPISOD 02/17/2018 TAISHA CINTRON DO B Ot G62.9 POLYNEUROPATHY, UNSPECIFIED 02/17/2018 TAISHA CINTRON DO B Ot I10 ESSENTIAL (PRIMARY) HYPERTENSION 02/17/2018 TAISHA CINTRON DO B Ot 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 AFFECT 02/17/2018 TAISHA CINTRON DO B Ot J44.9 CHRONIC OBSTRUCTIVE PULMONARY DISEASE, U 02/17/2018 TAISHA CINTRON DO B Ot K20.9 ESOPHAGITIS, UNSPECIFIED 02/17/2018 TAISHA CINTRON DO B Ot K21.9 GASTRO-ESOPHAGEAL REFLUX DISEASE WITHOUT 02/17/2018 KEIRA CINTRON DOIC B Ot K29.70 GASTRITIS, UNSPECIFIED, WITHOUT BLEEDING 02/17/2018 TAISHA CINTRON DO B Ot K31.7 POLYP OF STOMACH AND DUODENUM 02/17/2018 TAISHA CINTRON DO B Ot K44.9 DIAPHRAGMATIC HERNIA WITHOUT OBSTRUCTION 02/17/2018 TAISHA CINTRON DO B Ot Z79.899 OTHER ASSISTED (CURRENT) DRUG THERAPY 02/18/2018 TAISHA CINTRON DO B Ot Z01.818 ENCOUNTER FOR OTHER PREPROCEDURAL EXAMIN 02/19/2018 TAISHA CINTRON DO Ot Z01.818 ENCOUNTER FOR OTHER PREPROCEDURAL EXAMIN 02/22/2018 TAISHA CINTRON DO Ot D12.2 BENIGN NEOPLASM OF ASCENDING COLON 02/22/2018 TAISHA CINTRON DO B Ot G57.93 UNSPECIFIED MONONEUROPATHY OF BILATERAL 02/22/2018 TAISHA CINTRON DO Ot I10 ESSENTIAL (PRIMARY) HYPERTENSION 02/22/2018 TAISHA [...] TAISHA CINTRON DO B Ot Z79.899 OTHER ASSISTED (CURRENT) DRUG THERAPY 03/22/2018 SATISH MIRELES PIPE FITTER WELDING Ot K31.89 OTHER DISEASES OF STOMACH AND DUODENUM 03/22/2018 SATISH MIRELES PIPE FITTER WELDING Ot K57.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/O PERFORATION OR AB 03/22/2018 SATISH MIRELES PIPE FITTER WELDING Ot K59.00 CONSTIPATION, UNSPECIFIED 03/27/2018 TAISHA CINTRON DO Ot Z01.818 ENCOUNTER FOR OTHER PREPROCEDURAL EXAMIN 03/28/2018 EDIN MARSHALL MD Ot R10.9 UNSPECIFIED ABDOMINAL PAIN 03/28/2018 EDIN MARSHALL MD Ot R10.9 UNSPECIFIED ABDOMINAL PAIN 03/28/2018 EDIN MARSHALL MD Ot R10.9 UNSPECIFIED ABDOMINAL PAIN 03/28/2018 EDIN MARSHALL MD Ot R10.9 UNSPECIFIED ABDOMINAL PAIN 03/28/2018 EDIN MARSHALL MD Ot R10.9 UNSPECIFIED ABDOMINAL PAIN 03/29/2018 EDIN MARSHALL MD Ot R10.9 UNSPECIFIED ABDOMINAL PAIN 03/29/2018 EDIN MARSHALL MD Ot E11.42 TYPE 2 DIABETES MELLITUS WITH DIABETIC P 03/29/2018 EDIN MARSHALL MD Ot E78.5 HYPERLIPIDEMIA, UNSPECIFIED 03/29/2018 EDIN MARSHALL MD Ot F17.200 NICOTINE DEPENDENCE, UNSPECIFIED, UNCOMP 03/29/2018 EDIN MARSHALL MD Ot F32.9 MAJOR DEPRESSIVE DISORDER, SINGLE EPISOD 03/29/2018 EDIN MARSHALL MD Ot I10 ESSENTIAL (PRIMARY) HYPERTENSION 03/29/2018 EDIN MARSHALL MD Ot I25.110 ATHSCL HEART DISEASE OF [place] ART W 03/29/2018 EDIN MARSHALL MD Ot I25.2 OLD MYOCARDIAL INFARCTION 03/29/2018 EDIN MARSHALL MD Ot I48.91 UNSPECIFIED ATRIAL FIBRILLATION 03/29/2018 EDIN MARSHALL MD Ot I73.9 PERIPHERAL VASCULAR DISEASE, UNSPECIFIED 03/29/2018 EDIN MARSHALL MD Ot J44.9 CHRONIC OBSTRUCTIVE PULMONARY DISEASE, U 03/29/2018 EDIN MARSHALL MD Ot K21.9 GASTRO-ESOPHAGEAL REFLUX DISEASE WITHOUT 03/29/2018 EDIN MARSHALL MD Ot M19.91 PRIMARY OSTEOARTHRITIS, UNSPECIFIED SITE 03/29/2018 EDIN MARSHALL MD Ot R09.89 OTH SYMPTOMS AND SIGNS INVOLVING THE CIR 03/29/2018 EDIN MARSHALL MD Ot R10.9 UNSPECIFIED ABDOMINAL PAIN 03/29/2018 EDIN MARSHALL MD Ot Z95.5 PRESENCE OF CORONARY ANGIOPLASTY IMPLANT 03/29/2018 EDIN MARSHALL MD Ot Z96.641 PRESENCE OF RIGHT ARTIFICIAL HIP JOINT 03/29/2018 EDIN MARSHALL MD Ot E11.42 TYPE 2 DIABETES MELLITUS WITH DIABETIC P 03/29/2018 EDIN MRASHALL MD Ot E78.5 HYPERLIPIDEMIA, UNSPECIFIED 03/29/2018 EDIN MARSHALL MD Ot F17.200 NICOTINE DEPENDENCE, UNSPECIFIED, UNCOMP 03/29/2018 EDIN MARSHALL MD Ot F32.9 MAJOR DEPRESSIVE DISORDER, SINGLE EPISOD 03/29/2018 EDIN MARSHALL MD Ot I10 ESSENTIAL (PRIMARY) HYPERTENSION 03/29/2018 EDIN MARSHALL MD Ot I25.110 ATHSCL HEART DISEASE OF [place] ART W 03/29/2018 EDIN MARSHALL MD Ot I25.2 OLD MYOCARDIAL INFARCTION 03/29/2018 EDIN MARSHALL MD Ot I48.91 UNSPECIFIED ATRIAL FIBRILLATION 03/29/2018 EDIN MARSHALL MD Ot I73.9 PERIPHERAL VASCULAR DISEASE, UNSPECIFIED 03/29/2018 EDIN MARSHALL MD Ot J44.9 CHRONIC OBSTRUCTIVE PULMONARY DISEASE, U 03/29/2018 EDIN MARSHALL MD Ot K21.9 GASTRO-ESOPHAGEAL REFLUX DISEASE WITHOUT 03/29/2018 EDIN MARSHALL MD Ot M19.91 PRIMARY OSTEOARTHRITIS, UNSPECIFIED SITE 03/29/2018 EDIN MARSHALL MD Ot R09.89 OTH SYMPTOMS AND SIGNS INVOLVING THE CIR 03/29/2018 EDIN MARSHALL MD Ot R10.9 UNSPECIFIED ABDOMINAL PAIN 03/29/2018 EDIN MARSHALL MD Ot Z95.5 PRESENCE OF CORONARY ANGIOPLASTY IMPLANT 03/29/2018 EDIN MARSHALL MD Ot Z96.641 PRESENCE OF RIGHT ARTIFICIAL HIP JOINT 03/29/2018 EDIN MARSHALL MD Ot E11.42 TYPE 2 DIABETES MELLITUS WITH DIABETIC P 03/29/2018 EDIN MARSHALL MD Ot E78.5 HYPERLIPIDEMIA, UNSPECIFIED 03/29/2018 EDIN MARSHALL MD Ot F17.200 NICOTINE DEPENDENCE, UNSPECIFIED, UNCOMP 03/29/2018 EDIN MARSHALL MD Ot F32.9 MAJOR DEPRESSIVE DISORDER, SINGLE EPISOD 03/29/2018 EDIN MARSHALL MD Ot I10 ESSENTIAL (PRIMARY) HYPERTENSION 03/29/2018 EDIN MARSHALL MD Ot I25.110 ATHSCL HEART DISEASE OF [place] ART W 03/29/2018 EDIN MARSHALL MD Ot I25.2 OLD MYOCARDIAL INFARCTION 03/29/2018 EDIN MARSHALL MD Ot I48.91 UNSPECIFIED ATRIAL FIBRILLATION 03/29/2018 EDIN MARSHALL MD Ot I73.9 PERIPHERAL VASCULAR DISEASE, UNSPECIFIED 03/29/2018 EDIN MARSHALL MD Ot J44.9 CHRONIC OBSTRUCTIVE PULMONARY DISEASE, U 03/29/2018 EDIN MARSHALL MD Ot K21.9 GASTRO-ESOPHAGEAL REFLUX DISEASE WITHOUT 03/29/2018 EDIN MARSHALL MD Ot M19.91 PRIMARY OSTEOARTHRITIS, UNSPECIFIED SITE 03/29/2018 EDIN MARSHALL MD Ot R09.89 OTH SYMPTOMS AND SIGNS INVOLVING THE CIR 03/29/2018 EDIN MARSHALL MD Ot R10.9 UNSPECIFIED ABDOMINAL PAIN 03/29/2018 EDIN MARSHALL MD Ot Z95.5 PRESENCE OF CORONARY ANGIOPLASTY IMPLANT 03/29/2018 EDIN MARSHALL MD Ot Z96.641 PRESENCE OF RIGHT ARTIFICIAL HIP JOINT 03/29/2018 EDIN MARSHALL MD Ot E11.42 TYPE 2 DIABETES MELLITUS WITH DIABETIC P 03/29/2018 EDIN MARSHALL MD Ot E78.5 HYPERLIPIDEMIA, UNSPECIFIED 03/29/2018 EDIN MARSHALL MD Ot F17.200 NICOTINE DEPENDENCE, UNSPECIFIED, UNCOMP 03/29/2018 EDIN MARSHALL MD Ot F32.9 MAJOR DEPRESSIVE DISORDER, SINGLE EPISOD 03/29/2018 EDIN MARSHALL MD Ot I10 ESSENTIAL (PRIMARY) HYPERTENSION 03/29/2018 EDIN MARSHALL MD Ot I25.110 ATHSCL HEART DISEASE OF [place] ART W 03/29/2018 EDIN MARSHALL MD Ot I25.2 OLD MYOCARDIAL INFARCTION 03/29/2018 EDIN MARSHALL MD Ot I48.91 UNSPECIFIED ATRIAL FIBRILLATION 03/29/2018 EDIN MARSHALL MD Ot I73.9 PERIPHERAL VASCULAR DISEASE, UNSPECIFIED 03/29/2018 EDIN MARSHALL MD Ot J44.9 CHRONIC OBSTRUCTIVE PULMONARY DISEASE, U 03/29/2018 EDIN MARSHALL MD Ot K21.9 GASTRO-ESOPHAGEAL REFLUX DISEASE WITHOUT 03/29/2018 EDIN MARSHALL MD Ot M19.91 PRIMARY OSTEOARTHRITIS, UNSPECIFIED SITE 03/29/2018 EDIN MARSHALL MD Ot R09.89 OTH SYMPTOMS AND SIGNS INVOLVING THE CIR 03/29/2018 EDIN MARSHALL MD Ot R10.9 UNSPECIFIED ABDOMINAL PAIN 03/29/2018 EDIN MARSHALL MD Ot Z95.5 PRESENCE OF CORONARY ANGIOPLASTY IMPLANT 03/29/2018 EDIN MARSHALL MD Ot Z96.641 PRESENCE OF RIGHT ARTIFICIAL HIP JOINT 03/29/2018 EDIN MARSHALL MD Ot E11.42 TYPE 2 DIABETES MELLITUS WITH DIABETIC P 03/29/2018 EDIN MARSHALL MD Ot E78.5 HYPERLIPIDEMIA, UNSPECIFIED 03/29/2018 EDIN MARSHALL MD Ot F17.200 NICOTINE DEPENDENCE, UNSPECIFIED, UNCOMP 03/29/2018 EDIN MARSHALL MD Ot F32.9 MAJOR DEPRESSIVE DISORDER, SINGLE EPISOD 03/29/2018 EDIN MARSHALL MD Ot I10 ESSENTIAL (PRIMARY) HYPERTENSION 03/29/2018 EDIN MARSHALL MD Ot I25.110 ATHSCL HEART DISEASE OF [place] ART W 03/29/2018 EDIN MARSHALL MD Ot I25.2 OLD MYOCARDIAL INFARCTION 03/29/2018 EDIN MARSHALL MD Ot I48.91 UNSPECIFIED ATRIAL FIBRILLATION 03/29/2018 EDIN MARSHALL MD Ot I73.9 PERIPHERAL VASCULAR DISEASE, UNSPECIFIED 03/29/2018 EDIN MARSHALL MD Ot J44.9 CHRONIC OBSTRUCTIVE PULMONARY DISEASE, U 03/29/2018 EDIN MARSHALL MD Ot K21.9 GASTRO-ESOPHAGEAL REFLUX DISEASE WITHOUT 03/29/2018 EDIN MARSHALL MD Ot M19.91 PRIMARY OSTEOARTHRITIS, UNSPECIFIED SITE 03/29/2018 EDIN MARSHALL MD Ot R09.89 OTH SYMPTOMS AND SIGNS INVOLVING THE CIR 03/29/2018 EDIN MARSHALL MD Ot R10.9 UNSPECIFIED ABDOMINAL PAIN 03/29/2018 EDIN MARSHALL MD Ot Z95.5 PRESENCE OF CORONARY ANGIOPLASTY IMPLANT 03/29/2018 EDIN MARSHALL MD Ot Z96.641 PRESENCE OF RIGHT ARTIFICIAL HIP JOINT 03/30/2018 EDIN MARSHALL MD Ot E11.42 TYPE 2 DIABETES MELLITUS WITH DIABETIC P 03/30/2018 EDIN MARSHALL MD Ot E78.5 HYPERLIPIDEMIA, UNSPECIFIED 03/30/2018 EDIN MARSHALL MD Ot F17.200 NICOTINE DEPENDENCE, UNSPECIFIED, UNCOMP 03/30/2018 EDIN MARSHALL MD Ot F32.9 MAJOR DEPRESSIVE DISORDER, SINGLE EPISOD 03/30/2018 EDIN MARSHALL MD Ot I10 ESSENTIAL (PRIMARY) HYPERTENSION 03/30/2018 EDIN MARSHALL MD Ot I25.110 ATHSCL HEART DISEASE OF [place] ART W 03/30/2018 EDIN MARSHALL MD Ot I25.2 OLD MYOCARDIAL INFARCTION 03/30/2018 EDIN MARSHALL MD Ot I48.91 UNSPECIFIED ATRIAL FIBRILLATION 03/30/2018 EDIN MARSHALL MD Ot I73.9 PERIPHERAL VASCULAR DISEASE, UNSPECIFIED 03/30/2018 EDIN MARSHALL MD Ot J44.9 CHRONIC OBSTRUCTIVE PULMONARY DISEASE, U 03/30/2018 EDIN MARSHALL MD Ot K21.9 GASTRO-ESOPHAGEAL REFLUX DISEASE WITHOUT 03/30/2018 EDIN MARSHALL MD Ot M19.91 PRIMARY OSTEOARTHRITIS, UNSPECIFIED SITE 03/30/2018 EDIN MARSHALL MD Ot R09.89 OTH SYMPTOMS AND SIGNS INVOLVING THE CIR 03/30/2018 EDIN MARSHALL MD Ot R10.9 UNSPECIFIED ABDOMINAL PAIN 03/30/2018 EDIN MARSHALL MD Ot Z95.5 PRESENCE OF CORONARY ANGIOPLASTY IMPLANT 03/30/2018 EDIN MARSHALL MD Ot Z96.641 PRESENCE OF RIGHT ARTIFICIAL HIP JOINT 04/01/2018 EDIN MARSHALL MD Ot E11.42 TYPE 2 DIABETES MELLITUS WITH DIABETIC P 04/01/2018 EDIN MARSHALL MD Ot E78.5 HYPERLIPIDEMIA, UNSPECIFIED 04/01/2018 EDIN MARSHALL MD Ot F17.200 NICOTINE DEPENDENCE, UNSPECIFIED, UNCOMP 04/01/2018 EDIN MARSHALL MD Ot F32.9 MAJOR DEPRESSIVE DISORDER, SINGLE EPISOD 04/01/2018 EDIN MARSHALL MD Ot I10 ESSENTIAL (PRIMARY) HYPERTENSION 04/01/2018 EDIN MARSHALL MD Ot I25.110 ATHSCL HEART DISEASE OF [place] ART W 04/01/2018 EDIN MARSHALL MD Ot I25.119 ATHSCL HEART DISEASE OF [place] ART W 04/01/2018 EDIN MARSHALL MD Ot I25.2 OLD MYOCARDIAL INFARCTION 04/01/2018 EDIN MARSHALL MD Ot I48.91 UNSPECIFIED ATRIAL FIBRILLATION 04/01/2018 EDIN MARSHALL MD Ot I73.9 PERIPHERAL VASCULAR DISEASE, UNSPECIFIED 04/01/2018 EDIN MARSHALL MD Ot J44.9 CHRONIC OBSTRUCTIVE PULMONARY DISEASE, U 04/01/2018 EDIN MARSHALL MD Ot K21.9 GASTRO-ESOPHAGEAL REFLUX DISEASE WITHOUT 04/01/2018 EDIN MARSHALL MD Ot K29.50 UNSPECIFIED CHRONIC GASTRITIS WITHOUT BL 04/01/2018 EDIN MARSHALL MD Ot K66.0 PERITONEAL ADHESIONS (POSTPROCEDURAL) (P 04/01/2018 EDIN MARSHALL MD Ot M19.91 PRIMARY OSTEOARTHRITIS, UNSPECIFIED SITE 04/01/2018 EDIN MARSHALL MD Ot R09.89 OTH SYMPTOMS AND SIGNS INVOLVING THE CIR 04/01/2018 EDIN MARSHALL MD Ot R10.84 GENERALIZED ABDOMINAL PAIN 04/01/2018 EDIN MARSHALL MD Ot R10.9 UNSPECIFIED ABDOMINAL PAIN 04/01/2018 EDIN MARSHALL MD Ot Z88.5 ALLERGY STATUS TO NARCOTIC AGENT STATUS 04/01/2018 EDIN MARSHALL MD Ot Z88.6 ALLERGY STATUS TO ANALGESIC AGENT STATUS 04/01/2018 EDIN MARSHALL MD Ot Z95.5 PRESENCE OF CORONARY ANGIOPLASTY IMPLANT 04/01/2018 EDIN MARSHALL MD Ot Z96.641 PRESENCE OF RIGHT ARTIFICIAL HIP JOINT 04/08/2018 EDIN MARSHALL MD Ot E11.42 TYPE 2 DIABETES MELLITUS WITH DIABETIC P 04/08/2018 EDIN MARSHALL MD Ot E78.5 HYPERLIPIDEMIA, UNSPECIFIED 04/08/2018 EDIN MARSHALL MD Ot F17.200 NICOTINE DEPENDENCE, UNSPECIFIED, UNCOMP 04/08/2018 EDIN MARSHALL MD Ot F32.9 MAJOR DEPRESSIVE DISORDER, SINGLE EPISOD 04/08/2018 EDIN MARSHALL MD Ot I10 ESSENTIAL (PRIMARY) HYPERTENSION 04/08/2018 EDIN MARSHALL MD Ot I25.119 ATHSCL HEART DISEASE OF [place] ART W 04/08/2018 EDIN MARSHALL MD Ot I25.2 OLD MYOCARDIAL INFARCTION 04/08/2018 EDIN MARSHALL MD Ot I48.91 UNSPECIFIED ATRIAL FIBRILLATION 04/08/2018 EDIN MARSHALL MD Ot I73.9 PERIPHERAL VASCULAR DISEASE, UNSPECIFIED 04/08/2018 EDIN MARSAHLL MD Ot J44.9 CHRONIC OBSTRUCTIVE PULMONARY DISEASE, U 04/08/2018 EDIN MARSHALL MD Ot K21.9 GASTRO-ESOPHAGEAL REFLUX DISEASE WITHOUT 04/08/2018 EDIN MARSHALL MD Ot K29.50 UNSPECIFIED CHRONIC GASTRITIS WITHOUT BL 04/08/2018 EDIN MARSHALL MD Ot K66.0 PERITONEAL ADHESIONS (POSTPROCEDURAL) (P 04/08/2018 EDIN MARSHALL MD Ot M19.91 PRIMARY OSTEOARTHRITIS, UNSPECIFIED SITE 04/08/2018 EDIN MARSHALL MD Ot R09.89 OTH SYMPTOMS AND SIGNS INVOLVING THE CIR 04/08/2018 EDIN MARSHALL MD Ot R10.84 GENERALIZED ABDOMINAL PAIN 04/08/2018 EDIN MARSHALL MD Ot Z88.5 ALLERGY STATUS TO NARCOTIC AGENT STATUS 04/08/2018 EDIN MARSHALL MD Ot Z88.6 ALLERGY STATUS TO ANALGESIC AGENT STATUS 04/08/2018 EDIN MARSHALL MD Ot Z95.5 PRESENCE OF CORONARY ANGIOPLASTY IMPLANT 04/08/2018 EDIN MARSHALL MD Ot Z96.641 PRESENCE OF RIGHT ARTIFICIAL HIP JOINT 04/08/2018 EDIN MARSHALL MD Ot E11.42 TYPE 2 DIABETES MELLITUS WITH DIABETIC P 04/08/2018 EDIN MARSHALL MD Ot E78.5 HYPERLIPIDEMIA, UNSPECIFIED 04/08/2018 EDIN MARSHALL MD Ot F17.200 NICOTINE DEPENDENCE, UNSPECIFIED, UNCOMP 04/08/2018 EDIN MARSHALL MD Ot F32.9 MAJOR DEPRESSIVE DISORDER, SINGLE EPISOD 04/08/2018 EDIN MARSHALL MD Ot I10 ESSENTIAL (PRIMARY) HYPERTENSION 04/08/2018 EDIN MARSHALL MD, Ot I25.119 ATHSCL HEART DISEASE OF [place] ART W 04/08/2018 EDIN MARSHALL MD, Ot I25.2 OLD MYOCARDIAL INFARCTION 04/08/2018 EDIN MARSHALL MD, Ot I48.91 UNSPECIFIED ATRIAL FIBRILLATION 04/08/2018 EDIN MARSHALL MD, Ot I73.9 PERIPHERAL VASCULAR DISEASE, UNSPECIFIED 04/08/2018 EDIN MARSHALL MD, Ot J44.9 CHRONIC OBSTRUCTIVE PULMONARY DISEASE, U 04/08/2018 EDIN MARSHALL MD, Ot K21.9 GASTRO-ESOPHAGEAL REFLUX DISEASE WITHOUT 04/08/2018 EDIN MARSHALL MD Ot K29.50 UNSPECIFIED CHRONIC GASTRITIS WITHOUT BL 04/08/2018 EDIN MARSHALL MD, Ot K66.0 PERITONEAL ADHESIONS (POSTPROCEDURAL) (P 04/08/2018 EDIN MARSHALL MD, Ot M19.91 PRIMARY OSTEOARTHRITIS, UNSPECIFIED SITE 04/08/2018 EDIN MARSHALL MD Ot R09.89 OTH SYMPTOMS AND SIGNS INVOLVING THE CIR 04/08/2018 EDIN MARSHALL MD Ot R10.84 GENERALIZED ABDOMINAL PAIN 04/08/2018 EDIN MARSHALL MD, Ot Z88.5 ALLERGY STATUS TO NARCOTIC AGENT STATUS 04/08/2018 EDIN MARSHALL MD, Ot Z88.6 ALLERGY STATUS TO ANALGESIC AGENT STATUS 04/08/2018 EDIN MARSHALL MD, Ot Z95.5 PRESENCE OF CORONARY ANGIOPLASTY IMPLANT 04/08/2018 EDIN MARSHALL MD, Ot Z96.641 PRESENCE OF RIGHT ARTIFICIAL HIP JOINT 07/23/2018 TAISHA CINTRON DO Ot Z01.818 ENCOUNTER FOR [...] DUODENAL BLEEDING 08/29/2014 93.89 REHABILITATION NEC 09/03/2014 61295 Office/outpatient visit; established patient, level 1 04/27/2015 18441 Office/outpatient visit; established patient, level 4 04/28/2015 40446 Office/outpatient visit; established patient, level 4 05/05/2015 92859 Office/outpatient visit; established patient, level 4 05/12/2015 16518 DRAWING AND HANDLING - VENOUS 01/03/2017 02566 NEW COMPREHENSIVE 01/03/2017 19234 EST EXPANDED PROBLEM FOCUSED 02/01/2017 [id number] MEASURE OF CARDIAC SAMPL PRESSURE, L H 03/29/2018 [id number] FLUOROSCOPY OF MULT COR ART USING L OSM 03/29/2018 [id number] FLUOROSCOPY OF LEFT HEART USING LOW OSMO 03/29/2018 [id number] DILATION OF 1 COR ART WITH DRUG-ELUT INT 03/31/2018 Results Test Result Range URINALYSIS - 07/25/13 [...] 93 mg/dL 35-160 VLDL 19 mg/dL 0-42 [id number] - 02/22/18 14:30 C DIFFICILE AG + TOXIN A/B. - 02/22/18 14:40 RESULTS NEGATIVE FOR ANTIGEN AND TOXIN A/B [facility] Stool bacteria identification by culture - 02/22/18 14:40 QUANTITY OF GROWTH . [facility] Stool bacteria identification by culture SEE REPORT NR Methicillin resistant Staphylococcus aureus (MRSA) screening culture - 09:50 Methicillin resistant Staphylococcus aureus (MRSA) screening culture NEG NR Complete blood count (CBC) with automated white [...] blood basophil count (count/volume) 0.0 10*3/uL 0.0-0.1 Automated blood complete blood count (hemogram) panel - 03/29/18 05:40 Blood leukocytes automated count (number/volume) 6.3 10*3/uL 4.3-11.0 Blood erythrocytes automated count (number/volume) 5.96 10*6/uL 4.35-5.85 Venous blood hemoglobin measurement (mass/volume) 18.3 g/dL 13.3-17.7 Blood hematocrit (volume fraction) 52 % 40-54 Automated erythrocyte mean corpuscular volume 88 [foz_us] 80-99 Automated erythrocyte mean corpuscular hemoglobin (mass per erythrocyte) 31 pg 25-34 Automated erythrocyte mean corpuscular hemoglobin concentration measurement ( mass/volume) 35 g/dL 32-36 Automated erythrocyte distribution width ratio 14.2 % 10.0-14.5 Automated blood platelet count (count/volume) 122 10*3/uL 130-400 Automated blood platelet mean volume measurement 10.3 [foz_us] 7.4-10.4 Comprehensive metabolic panel - 03/29/18 06:35 Serum or plasma sodium measurement (moles/volume) 133 mmol/L 135-145 Serum or plasma potassium measurement (moles/volume) 4.8 mmol/L 3.6-5.0 Serum or plasma chloride measurement (moles/volume) 103 mmol/L 98-107 Carbon dioxide 18 mmol/L 21-32 Serum or plasma anion gap determination (moles/volume) 12 mmol/L 5-14 Serum or plasma urea nitrogen measurement (mass/volume) 17 mg/dL 7-18 Serum or plasma creatinine measurement (mass/volume) 0.94 mg/dL 0.60-1.30 Serum or plasma urea nitrogen/creatinine mass ratio 18 NRG Serum or plasma creatinine measurement with calculation of estimated glomerular filtration rate > NRG Serum or plasma glucose measurement (mass/volume) 117 mg/dL 70-105 Serum or plasma calcium measurement (mass/volume) 9.4 mg/dL 8.5-10.1 Serum or plasma total bilirubin measurement (mass/volume) 0.6 mg/dL 0.1-1.0 Serum or plasma alkaline phosphatase measurement (enzymatic activity/volume) 101 U/L 40-136 Serum or plasma aspartate aminotransferase measurement (enzymatic activity/ volume) 20 U/L 5-34 Serum or plasma alanine aminotransferase measurement (enzymatic activity/volume ) 21 U/L 0-55 Serum or plasma protein measurement (mass/volume) 6.7 g/dL 6.4-8.2 Serum or plasma albumin measurement (mass/volume) 3.9 g/dL 3.2-4.5 CALCIUM CORRECTED 9.5 mg/dL 8.5-10.1 Serum or plasma troponin i.cardiac measurement (mass/volume) - 03/29/18 06:35 Serum or plasma troponin i.cardiac measurement (mass/volume) < ng/ mL <0.30 Lipid 1996 panel - 03/29/18 06:35 Serum or plasma triglyceride measurement (mass/volume) 87 mg/dL <150 Serum or plasma cholesterol measurement (mass/volume) 127 mg/dL < 200 Serum or plasma cholesterol in HDL measurement (mass/volume) 37 mg/ dL 40-60 Cholesterol in LDL [mass/volume] in serum or plasma by direct assay 68 mg/dL 1-129 Serum or plasma cholesterol in VLDL measurement (mass/volume) 17 mg/ dL 5-40 PT panel in platelet poor plasma by coagulation assay - 03/29/18 07:37 Prothrombin time (PT) in platelet poor plasma by coagulation assay 13.0 s 12.2-14.7 INR in platelet poor plasma or blood by coagulation assay 1.0 0.8-1.4 Activated partial thromboplastin time (aPTT) in platelet poor plasma bycoagulation assay - 03/29/18 07:37 Activated partial thromboplastin time (aPTT) in platelet poor plasma bycoagulation assay 29 s 24-35 Automated blood complete blood count (hemogram) panel - 03/30/18 06:00 Blood leukocytes automated count (number/volume) 6.5 10*3/uL 4.3-11.0 Blood erythrocytes automated count (number/volume) 5.10 10*6/uL 4.35-5.85 Venous blood hemoglobin measurement (mass/volume) 15.8 g/dL 13.3-17.7 Blood hematocrit (volume fraction) 46 % 40-54 Automated erythrocyte mean corpuscular volume 89 [foz_us] 80-99 Automated erythrocyte mean corpuscular hemoglobin (mass per erythrocyte) 31 pg 25-34 Automated erythrocyte mean corpuscular hemoglobin concentration measurement ( mass/volume) 35 g/dL 32-36 Automated erythrocyte distribution width ratio 14.1 % 10.0-14.5 Automated blood platelet count (count/volume) 181 10*3/uL 130-400 Automated blood platelet mean volume measurement 10.0 [foz_us] 7.4-10.4 Comprehensive metabolic panel - 03/30/18 06:00 Serum or plasma sodium measurement (moles/volume) 136 mmol/L 135-145 Serum or plasma potassium measurement (moles/volume) 5.0 mmol/L 3.6-5.0 Serum or plasma chloride measurement (moles/volume) 103 mmol/L 98-107 Carbon dioxide 20 mmol/L 21-32 Serum or plasma anion gap determination (moles/volume) 13 mmol/L 5-14 Serum or plasma urea nitrogen measurement (mass/volume) 14 mg/dL 7-18 Serum or plasma creatinine measurement (mass/volume) 1.00 mg/dL 0.60-1.30 Serum or plasma urea nitrogen/creatinine mass ratio 14 NRG Serum or plasma creatinine measurement with calculation of estimated glomerular filtration rate > NRG Serum or plasma glucose measurement (mass/volume) 92 mg/dL 70-105 Serum or plasma calcium measurement (mass/volume) 9.0 mg/dL 8.5-10.1 Serum or plasma total bilirubin measurement (mass/volume) 0.7 mg/dL 0.1-1.0 Serum or plasma alkaline phosphatase measurement (enzymatic activity/volume) 115 U/L 40-136 Serum or plasma aspartate aminotransferase measurement (enzymatic activity/ volume) 21 U/L 5-34 Serum or plasma alanine aminotransferase measurement (enzymatic activity/volume ) 19 U/L 0-55 Serum or plasma protein measurement (mass/volume) 6.4 g/dL 6.4-8.2 Serum or plasma albumin measurement (mass/volume) 3.8 g/dL 3.2-4.5 CALCIUM CORRECTED 9.2 mg/dL 8.5-10.1 Automated blood complete blood count (hemogram) panel - 03/31/18 05:26 Blood leukocytes automated count (number/volume) 6.5 10*3/uL 4.3-11.0 Blood erythrocytes automated count (number/volume) 4.87 10*6/uL 4.35-5.85 Venous blood hemoglobin measurement (mass/volume) 15.4 g/dL 13.3-17.7 Blood hematocrit (volume fraction) 44 % 40-54 Automated erythrocyte mean corpuscular volume 90 [foz_us] 80-99 Automated erythrocyte mean corpuscular hemoglobin (mass per erythrocyte) 32 pg 25-34 Automated erythrocyte mean corpuscular hemoglobin concentration measurement ( mass/volume) 35 g/dL 32-36 Automated erythrocyte distribution width ratio 14.0 % 10.0-14.5 Automated blood platelet count (count/volume) 134 10*3/uL 130-400 Automated blood platelet mean volume measurement 9.3 [foz_us] 7.4-10.4 Whole blood basic metabolic panel - 03/31/18 05:26 Serum or plasma sodium measurement (moles/volume) 136 mmol/L 135-145 Serum or plasma potassium measurement (moles/volume) 4.3 mmol/L 3.6-5.0 Serum or plasma chloride measurement (moles/volume) 108 mmol/L 98-107 Carbon dioxide 16 mmol/L 21-32 Serum or plasma anion gap determination (moles/volume) 12 mmol/L 5-14 Serum or plasma urea nitrogen measurement (mass/volume) 17 mg/dL 7-18 Serum or plasma creatinine measurement (mass/volume) 0.96 mg/dL 0.60-1.30 Serum or plasma urea nitrogen/creatinine mass ratio 18 NRG Serum or plasma creatinine measurement with calculation of estimated glomerular filtration rate > NRG Serum or plasma glucose measurement (mass/volume) 102 mg/dL 70-105 Serum or plasma calcium measurement (mass/volume) 8.9 mg/dL 8.5-10.1 Serum or plasma troponin i.cardiac measurement (mass/volume) - 03/31/18 05:26 Serum or plasma troponin i.cardiac measurement (mass/volume) < ng/ mL <0.30 Whole blood basic metabolic panel - 04/01/18 05:27 Serum or plasma sodium measurement (moles/volume) 136 mmol/L 135-145 Serum or plasma potassium measurement (moles/volume) 4.3 mmol/L 3.6-5.0 Serum or plasma chloride measurement (moles/volume) 106 mmol/L 98-107 Carbon dioxide 21 mmol/L 21-32 Serum or plasma anion gap determination (moles/volume) 9 mmol/L 5-14 Serum or plasma urea nitrogen measurement (mass/volume) 12 mg/dL 7-18 Serum or plasma creatinine measurement (mass/volume) 0.80 mg/dL 0.60-1.30 Serum or plasma urea nitrogen/creatinine mass ratio 15 NRG Serum or plasma creatinine measurement with calculation of estimated glomerular filtration rate > NRG Serum or plasma glucose measurement (mass/volume) 106 mg/dL 70-105 Serum or plasma calcium measurement (mass/volume) 8.6 mg/dL 8.5-10.1 Automated blood complete blood count (hemogram) panel - 04/01/18 07:00 Blood leukocytes automated count (number/volume) 6.1 10*3/uL 4.3-11.0 Blood erythrocytes automated count (number/volume) 4.70 10*6/uL 4.35-5.85 Venous blood hemoglobin measurement (mass/volume) 14.5 g/dL 13.3-17.7 Blood hematocrit (volume fraction) 42 % 40-54 Automated erythrocyte mean corpuscular volume 89 [foz_us] 80-99 Automated erythrocyte mean corpuscular hemoglobin (mass per erythrocyte) 31 pg 25-34 Automated erythrocyte mean corpuscular hemoglobin concentration measurement ( mass/volume) 35 g/dL 32-36 Automated erythrocyte distribution width ratio 13.7 % 10.0-14.5 Automated blood platelet count (count/volume) 163 10*3/uL 130-400 Automated blood platelet mean volume measurement 9.4 [foz_us] 7.4-10.[address] [facility] on 02/14/2013 23:13:00 DIAGNOSTIC IMAGING REPORT [facility] - [address] [place] [address] PHONE #: [phone] FAX #: [phone] ------- Name: OLEKSANDRCAROLINE JARED Loc: DEON Radiology No: [id number] : 1944 Age: 68 Sex: M Status: [facility] Unit No: [id number] Phys: Maira Oconnor MD Acct: [id number] Reason For Exam: low back pain - fall Exam Date: 02/14/2013 EXAMS: CPT CODE: [id number] LUMBAR SPINE 2-3 VIEWS [id number] INDICATION: Low back pain. Fall. Findings: Comparison is made to the 05/21/2010 exam. Frontal and lateral views of the lumbar spine were obtained. Alignment, vertebral height, and disk spaces are stable. There is no fracture, destructive process, or significant degenerative disease. The sacroiliac joints are grossly normal. Surgical clips are noted in the right abdomen. IMPRESSION: Stable radiographic appearance of the lumbar spine with degenerative changes. No compression deformities are noted. at [id number] Reported and signed by: DOMINKI KANG MD CC: Maira Ramirez MD; Charles Oconnell MD Technologist: CAROLINE MACIEL Transcribed Date/Time: 02/14/2013 (1843) Instrumentation And Controls Technician: ESME Printed Date/Time: 2012 (2669) BATCH NO: N/A PAGE 1 Signed Report Radiology Report from [id number] on 05/28/2013 07:57:00 Final ReportADMITTING DIAGNOSIS: fall chest/back painCHEST PORTABLE SINGLE VIEW - 05/27/2013 [facility] RESULT: INDICATION: Back pain.EXAMINATION: AP upright portable chest 05/27/2013 10:44 PMFINDINGS: Portable examination of the chest fails to revealevidence of active parenchymal pathology or pleural effusion.The cardiac silhouette is normal.IMPRESSION: Negative chest and specifically looked at the aortaand no evidence of aortic aneurysm or possible dissection.Dictated on workstation # [id number] BY : BRIAN DOWNING M.D., RADIOLOGISTELECTRONICALLY SIGNED BY: BRIAN DOWNING M.D., RADIOLOGISTD May 28 2013 6:12AT SA2: May 28 2013 7: 55AS May 28 2013 7:55A Radiology Report from [facility] on 10/05/2016 10:32:00 [facility]AGNOSTIC [facility]ING [facility] [address] [place] [address] PHONE #: [phone] FAX #: [phone] ------- Name: CAROLINE LEGGETT Loc: E.ED Radiology No: [id number] : 1944 Age: 71 Sex: M Status: REG ER Unit No: [id number] Phys: Yobani Lopez MD Acct: [id number] Reason For Exam: fall Exam Date: 10/05/2016 EXAMS: CPT CODE: [id number] XR HIP 1V RT W/PELVIS 83816 Time exam: September at 0945 hrs. Reason for exam: Fall Comparison: Radiographs of the pelvis from March Findings: Frontal view of the pelvis and PA and crosstable lateral views of the right hip are submitted which demonstrate postsurgical changes from right hip hemiarthroplasty. No periprosthetic fracture or dislocation is appreciated. The bony pelvis is intact. Please note the sacrum and iliac wings are obscured by overlying bowel gas. The sacroiliac joints and pubic symphysis are well-maintained. No acute fracture is seen. Degenerative changes seen involving the left hip with loss of joint space. Moderately large amount of stool is seen within the rectum. Impression: 1. No fracture or dislocation involving the right hip or pelvis. 2. Moderately large amount of stool in the rectum. I have personally reviewed these images and approved or corrected the resident physician's interpretation. at 1026 RESIDENT: KAYLAN COLINDRES MD Reported and signed by: ELIJAH BREWSTER MD CC: Technologist: SIDNEY COLLINS Transcribed Date/Time: 10/05/2016 (3271)Instrumentation And Controls Technician: OLIVER Printed Date/Time: 10/05/2016 (0334) BATCH NO: N/A PAGE 1 Signed Report Radiology Report from [facility] [place] on 10/05/2016 12:06:00 DIAGNOSTIC IM[facility]ING [facility] [address] [place] [address] PHONE #: [phone] FAX #: [phone] ------- Name: CAROLINE LEGGETT SR Loc: E.ED Radiology No: [id number] : 1944 Age: 71 Sex: M Status: REG ER Unit No: [id number] Phys: Yobani Lopez MD Acct: [id number] Reason For Exam: fall with injury Exam Date: 10/05/2016 EXAMS: CPT CODE: [id number] CT LUMBAR SPINE W/0 48516 TIME OF EXAM: 10/05/2016 10:04 AM REASON FOR EXAM: fall with injury COMPARISON: None. TECHNIQUE: Helical images of the lumbar spine were obtained from the T12 to S1. Post processed coronal and sagittal reformats were also reviewed. FINDINGS: For the purposes of this exam there are five lumbar type vertebral bodies with the last well formed disk space designated L5-S1. The static alignment of the lumbar spine is within normal limits. Vertebral body heights are well maintained. There is no evidence of acute fracture. No focal osseous lesions are present. Multilevel disc space loss is present most notable at L5-S1, with vacuum disc phenomenon. Foraminal stenosis is noted on the left at L5-S1 due to facet arthropathy and posterolateral vertebral body osteophytes. The spinal canal contents are not well assessed with noncontrast CT; however, no gross abnormality is seen within the canal. The surrounding soft tissues are unremarkable. Colonic diverticulosis is present. No large prevertebral or paraspinal soft tissue masses are seen. IMPRESSION: 1. No evidence of acute fracture or malalignment of the lumbar spine. at 1201 Reported and signed by: ELIJAH BREWSTER MD PAGE 1 Signed Report (CONTINUED) DIAGNOSTIC IMAGING REPORT [facility] - [address] [place] [address] PHONE #: [phone] FAX #: [phone] Name: CAROLINE LEGGETT SR Loc: E.ED Radiology No: [id number] : 1945 Age: 71 Sex: M Status: REG ER Unit No: [id number] Phys: Yobani Lopez MD Acct: [id number] Reason For Exam: fall with injury Exam Date: 2016 --- EXAMS: CPT CODE: [id number] CT LUMBAR SPINE W/0 35762 < Continued> CC: Technologist: VASILE VANN; JAVY FLORES Transcribed Date/Time: 10/05/2016 (1201)Instrumentation And Controls Technician : OLIVER Printed Date/Time: 10/05/2016 (1205) BATCH NO: N/A PAGE 2 Signed Report Radiology Report from [facility] on 10/05/2016 12:17:00 [facility] [address] [place] [address] PHONE #: [phone] FAX #: [phone] ------- Name: CAROLINE LEGGETT SR Loc: E.ED Radiology No: [id number] : 1944 Age: 71 Sex: M Status: REG ER Unit No: [id number] Phys: Yobani Lopez MD Acct: [id number] Reason For Exam: trauma Exam Date: 10/05/2016 EXAMS: CPT CODE: [id number] CT PELVIS WITH CONTRAST 91722 TIME OF EXAM: 10/05/2016 10:04 AM REASON FOR EXAM: trauma COMPARISON: Right hip radiograph same date. TECHNIQUE: Helical postcontrast images obtained through the pelvis with sagittal and coronal reconstructed images. FINDINGS: Patient is status post right hip hemiarthroplasty. The visualized portions are unremarkable. No periprosthetic fracture is seen. No fractures of the pelvis are identified. The dawkins and columns of the acetabula are intact. The iliac wings are unremarkable. The sacral ala and sacral foramina appear normal. The SI joints do not appear widened. The symphysis pubis is not widened. Mild degenerative changes are present in the left hip joint. Surrounding soft tissue structures are unremarkable. Included portions of the intrapelvic soft tissues demonstrate no acute abnormalities. Colonic diverticulosis is present. Large volume of fecal material is noted in the rectum. 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 IMPRESSION: 1. No acute fracture or malalignment of the bony pelvis. 2. Status post right hip hemiarthroplasty. at 1212 Reported and signed by: ELIJAH BREWSTER MD PAGE 1 Signed Report (CONTINUED) DIAGNOSTIC [facility]ING [facility] [address] [place] [address] PHONE #: [phone] FAX #: [phone] Name: CAROLINE LEGGETT Loc: E.ED Radiology No: [id number] : 1945 Age: 71 Sex: M Status: REG ER Unit No: [id number] Phys: Yobani Lopez MD Acct: [id number] Reason For Exam: trauma Exam Date: 10/05/2016 EXAMS: CPT CODE: [id number] CT PELVIS WITH CONTRAST 36942 <Continued> CC: Technologist: VASILE VANN; JAVY FLORES Transcribed Date/Time: 10/05/2016 (1212)Instrumentation And Controls Technician: OLIVER Printed Date/Time: 10/05/2016 (0252) BATCH NO: N/A PAGE 2 Signed Report Encounters ACCT No. Visit Date/Time Discharge Status Pt. Type Provider Facility Loc./Unit Complaint [id number] 08/03/2017 20:01:02 ACT Unknown [id number] 01/20/2015 19:31:00 01/20/2015 23:59:59 CLS Preadmit [facility] L.ER [id number] 05/06/2014 04:50:00 05/07/2014 17:00:00 DIS Inpatient Andre ROMERO, Bret [facility] W.4CE [id number] 02/14/2013 15:39:00 02/14/2013 18:02:00 DIS Emergency Ashley ROMERO, Maira [facility] W.EDS [id number] 02/13/2013 23:03:00 02/13/2013 23:50:00 DIS Emergency Sabina Vasquez [facility] W.EDW [id number] 06/27/2015 18:41:00 06/27/2015 21:10:00 DIS ER VICTOR MANUEL ROMERO, JARETT ED [id number] 06/16/2015 20:04:00 Document Registration [id number] 08/07/2011 23:15:00 Document Registration [id number] 11/15/2014 19:21:00 11/15/2014 23:59:59 CLS Preadmit [facility] L.ER [id number] 05/12/2015 15:08:03 05/12/2015 15:57:43 DIS Outpatient Oswaldo ROMERO, [facility] [id number] 10/23/2015 20:05:00 10/23/2015 23:59:59 CLS Preadmit [facility].ER [id number] 06/18/2015 18:05:00 06/18/2015 23:59:59 CLS Preadmit [facility].ER [id number] 07/26/2017 10:45:00 08/02/2017 10:44:00 DIS Inpatient [facility] BOZENA [id number] 07/26/2017 11:06:07 Document Registration [id number] 05/19/2015 01:35:00 05/19/2015 23:59:59 CLS Preadmit [facility] ED [id number] 04/26/2016 13:15:00 04/26/2016 23:59:59 CLS Outpatient ALBA COLLINS DO E [facility] [id number] 07/28/2015 08:56:03 07/28/2015 08:56:03 Outpatient [id number] 07/28/2015 08:53:36 07/28/2015 08:53:36 Outpatient [id number] 07/28/2015 08:11:59 07/28/2015 08:12:00 Outpatient [id number] 11/13/2014 20:58:00 11/13/2014 23:59:59 CLS Preadmit [facility].ER [id number] 06/10/2013 10:56:00 06/10/2013 12:34:00 DIS Emergency Gilbert ROMERO, Alvarez S [facility] [id number] 05/28/2013 12:17:00 05/28/2013 23:59:59 CLS Outpatient Estevan Wilkinson MD [facility] FOP [id number] 05/27/2013 22:05:00 05/28/2013 00:20:00 DIS Emergency Roxanne AGUILA Reginaldo Jodi [facility] [id number] 04/30/2013 03:26:00 04/30/2013 04:17:00 DIS Emergency Mayito ROMERO, Falguni [facility] [id number] 04/28/2013 11:51:00 04/28/2013 13:25:00 DIS Emergency Efrain ROMERO, Jay [facility] [id number] 05/28/2013 12:28:00 Document Registration [id number] 06/18/2015 18:05:00 06/18/2015 23:59:59 CLS Preadmit L.ER [id number] 12/25/2015 19:53:00 12/25/2015 23:59:59 CLS Preadmit [facility] L.ER [id number] 06/23/2013 18:31:00 06/23/2013 23:59:59 CLS Outpatient [id number] 05/30/2013 15:27:00 05/30/2013 23:59:59 CLS Outpatient [id number] 05/16/2013 13:57:00 05/16/2013 23:59:59 CLS Outpatient [id number] 05/14/2013 17:09:00 05/14/2013 23:59:59 CLS Outpatient [id number] 04/18/2013 14:40:00 04/18/2013 23:59:59 CLS Outpatient [id number] 06/29/2015 18:15:00 06/29/2015 20:01:00 DIS SHADY CARBONE MD [id number] 06/18/2015 18:05:00 06/18/2015 22:05:00 DIS ER VASILE BECKWITH PA-C [id number] 06/16/2015 20:35:00 06/17/2015 09:40:00 DIS KEIRA MORELAND MD, SHADY DICKENS [id number] 06/16/2015 20:04:00 Document Registration [id number] 06/16/2015 20:04:00 Document Registration [id number] 12/23/2015 19:39:00 12/23/2015 23:59:59 CLS Preadmit [facility] L.ER [id number] 06/08/2017 23:00:00 06/08/2017 23:59:59 DIS Outpatient AFLGUNI HAMILTON [facility] [id number] 03/13/2017 18:24:00 ACT V JAY VALDES [facility] unknown [id number] 10/02/2015 20:52:00 10/02/2015 20:52:00 CAN Emergency [facility] L.ER [id number] 03/07/2015 22:00:00 03/07/2015 23:59:59 CLS Preadmit [facility] L.ER [id number] 08/29/2014 10:20:00 08/29/2014 23:59:59 CLS Preadmit [facility] L.ER [id number] 06/27/2015 18:37:00 06/27/2015 23:59:59 CLS Preadmit [facility] ED [id number] 02/19/2016 12:04:00 02/19/2016 14:09:00 DIS Emergency PAIGE ROMERO, JARETT Trejo [facility] ED INJURY [id number] 10/26/2015 20:09:00 10/26/2015 22:19:00 DIS Emergency NICKOLAS ROMERO, AWAIS Zapata [facility] ED [id number] 07/28/2015 13:23:00 07/28/2015 15:32:00 DIS Emergency MAYRA ROMERO, [facility] ED [id number] 07/01/2015 11:53:00 07/01/2015 13:03:00 DIS Emergency MAYRA ROMERO, [facility] ED [id number] 06/16/2015 13:51:00 06/16/2015 15:09:00 DIS Emergency KEYA JENKINS DO [facility] ED [id number] 05/19/2015 20:26:00 05/19/2015 22:25:00 DIS Emergency NICKOLAS ROMERO, [facility] ED [id number] 04/30/2015 12:02:00 04/30/2015 23:59:59 CLS Outpatient OSWALDO ROMERO, [facility] RAD RETROGRADE AMNESIA - R41.2 [id number] 04/26/2015 12:21:00 04/26/2015 13:25:00 DIS Emergency MAZIN ROMERO, [facility] ED [id number] 05/08/2014 21:13:00 05/08/2014 23:59:59 CLS Outpatient [facility] ALS ASSIST [facility] [place] [facility] [id number] 10/09/2013 22:42:00 10/09/2013 23:30:00 DIS Emergency DELANEY ROMERO, [facility] ED [id number] 09/01/2013 13:10:00 09/01/2013 14:26:00 DIS Emergency [facility] ED [id number] 07/20/2013 18:25:00 07/20/2013 18:56:00 DIS Emergency JADEN ROMERO, CHRISTOPHER [facility] ED [id number] 07/14/2013 20:33:00 07/14/2013 23:09:00 DIS Emergency [facility] ED [id number] 06/21/2013 21:25:00 06/21/2013 22:13:00 DIS Emergency NICKOLAS ROMERO, [facility] ED [id number] 04/28/2013 21:21:00 04/28/2013 22:23:00 DIS Emergency DELANEY ROMERO, [facility] ED [id number] 04/15/2013 15:15:00 04/15/2013 16:08:00 DIS Emergency [facility] ED [id number] 04/03/2013 03:05:00 04/03/2013 03:56:00 DIS Emergency NICKOLAS ROMERO, [facility] ED [id number] 09/26/2015 21:24:00 Document Registration [id number] 06/11/2014 08:20:00 Document Registration [id number] 06/03/2014 15:28:00 Document Registration [id number] 09/20/2014 20:59:00 09/20/2014 23:59:59 CLS Preadmit [facility] L.ER [id number] 01/20/2015 19:15:00 01/20/2015 23:59:59 CLS Preadmit [facility] L.ER [id number] 08/03/2017 19:57:55 ACT Document Registration [id number] 12/21/2016 21:04:00 12/21/2016 23:59:59 CLS Preadmit [facility] ED [id number] 08/29/2015 21:21:00 08/29/2015 23:59:59 CLS Preadmit [facility] L.ER [id number] 11/18/2015 22:14:00 11/18/2015 23:59:59 CLS Preadmit [facility] L.ER [id number] 06/27/2015 18:37:00 06/27/2015 23:59:59 CLS Preadmit ED [id number] 07/23/2018 12:30:00 07/23/2018 13:51:00 DIS Outpatient TAISHA CINTRON DO [facility] PREOP DIAGNOSTIC LAPAROSCOPY [id number] 03/30/2018 18:10:00 04/01/2018 15:15:00 DIS Inpatient EDIN MARSHALL MD [facility] 4TH ABDOMINAL PAIN [id number] 03/28/2018 12:00:00 03/28/2018 12:00:00 CAN Preadmit TAISHA CINTRON DO [facility] SDC ABDOMINAL PAIN [id number] 03/26/2018 11:15:00 03/26/2018 11:44:00 DIS Outpatient TAISHA CINTRON DO [facility] PREOP ABDOMINAL PAIN [id number] 02/22/2018 11:54:00 02/22/2018 15:50:00 DIS Outpatient TAISHA CINTRON DO [facility] ENDO ABD PAIN [id number] 02/18/2018 05:50:00 02/18/2018 13:00:00 DIS Outpatient TAISHA CINTRON DO [facility] PREOP COLONOSCOPY [id number] 02/04/2018 11:55:00 02/04/2018 15:30:00 DIS Outpatient TAISHA CINTRON DO [facility] ENDO GASTRITIS [id number] 02/01/2018 05:42:00 02/01/2018 11:10:00 DIS Outpatient TAISHA CINTRON DO [facility] PREOP EGD [id number] 01/16/2018 08:08:00 01/16/2018 23:59:59 CLS Outpatient SATISH MIRELES [employer] [facility] RAD ABD PAIN [id number] 07/25/2018 07:50:00 ACT Outpatient TAISHA CINTRON DO [facility] SDC ABDOMINAL PAIN [id number] 02/01/2017 10:50:00 02/01/2017 23:59:59 CLS Outpatient [facility] [id number] 01/03/2017 10:30:00 01/03/2017 23:59:59 CLS Outpatient [facility] [id number] 02/07/2017 20:21:00 Document Registration [id number] 02/02/2017 15:51:00 Document Registration [id number] 02/01/2017 19:41:00 Document Registration [id number] 23:14:00 Document Registration [id number] 10/05/2016 09:18:00 10/05/2016 13:10:00 DIS Emergency Candelario ROMERO, [facility] E.ED [id number] 02/05/2017 17:20:00 02/05/2017 20:10:00 DIS Outpatient LUIS ROMERO, WEI [facility] 1S [id number] 12/21/2016 21:07:00 12/22/2016 01:11:00 DIS Emergency HARLEY ROMERO, SULY [facility] ED [id number] 11/08/2016 20:46:00 11/09/2016 04:56:00 DIS Inpatient DAVE JARVIS DO [facility] 1SOU [id number] 10/09/2016 12:29:00 10/09/2016 14:29:00 DIS Emergency HARLEY ROMERO, SULY [facility] ED [id number] 06/24/2016 21:30:00 06/25/2016 08:35:00 DIS Inpatient NIKITA ROMERO, ONÉ Dugan [facility] 1SOU [id number] 05/26/2016 21:05:00 05/31/2016 13:23:00 DIS Inpatient TRENT SOLITARIO MD, MITZI Queen [facility] 5SUR W [id number] 05/29/2016 14:39:00 05/29/2016 23:59:59 CLS Preadmit STEVEN CABRERA MD [id number] 04/07/2016 10:06:00 04/07/2016 23:59:00 DIS Outpatient KARINA [facility] LAB [id number] 04/07/2016 10:05:00 04/07/2016 23:59:00 DIS Outpatient KARINA [facility] XRAY [id number] 03/31/2016 13:23:00 03/31/2016 23:59:00 DIS Outpatient KARINA [facility] IC [id number] 01/24/2016 20:45:00 01/25/2016 01:56:00 DIS Inpatient SIMONA IMANIR [facility] 1SOU [id number] 01/21/2016 18:39:00 01/21/2016 20:36:00 DIS Emergency LUIS ROMERO, WEI Martinez [facility] ED [id number] 01/20/2016 10:00:00 01/20/2016 23:59:[address] DO [facility] NICL [id number] 12/21/2015 16:48:00 12/21/2015 22:04:00 DIS Emergency BALAJI FUNES MD [facility] ED [id number] 11/19/2015 20:44:00 11/23/2015 16:45:00 DIS Inpatient STEVEN CABRERA MD [facility] [id number] 06/27/2015 18:41:00 06/27/2015 21:10:00 DIS Emergency VICTOR MANUEL ROMERO, JARETT [facility] ED [id number] 05/19/2015 01:37:00 05/19/2015 02:21:00 DIS Emergency NIKITA ROMERO, NOÉ Dugan [facility] ED [id number] 12/28/2014 12:04:00 12/28/2014 23:59:00 DIS Outpatient MAGO AGUILA MARVIN Otf [facility] XRAY [id number] 12/28/2014 13:00:00 12/28/2014 13:00:00 CAN Preadmit SARAHI MERCEDES DOA Otf [facility] INFU TH [id number] 09/03/2014 12:43:00 09/08/2014 10:22:00 DIS Inpatient EDDA ROMERO, JASBIR Priest [facility] REHAB [id number] 08/29/2014 14:14:00 09/03/2014 12:18:00 DIS Inpatient RITA ROMERO, SABINA Ferro [facility] 4MED W [id number] 08/29/2014 11:56:00 Document Registration [id number] 07/09/2014 22:32:00 Document Registration [id number] 06/18/2014 09:38:00 Document Registration [id number] 06/11/2014 17:40:00 Document Registration [id number] 05/24/2014 13:19:00 Document Registration [id number] 05/05/2014 22:51:00 Document Registration [id number] 09/01/2013 18:08:00 Document Registration [id number] 07/21/2013 00:26:00 Document Registration [id number] 07/15/2013 14:40:00 Document Registration [id number] 06/19/2012 01:40:00 Document Registration [id number] 05/15/2012 13:52:00 Document Registration [id number] 03/29/2012 09:05:00 Document Registration [id number] 01/18/2012 23:16:00 Document Registration [id number] 12/20/2011 15:24:00 Document Registration [id number] 12/12/2011 00:47:00 Document Registration [id number] 09/02/2011 03:43:00 Document Registration [id number] 08/07/2011 23:15:00 Document Registration [id number] 08/07/2011 00:32:00 Document Registration [id number] 08/04/2011 03:31:00 Document Registration [id number] 04/28/2011 00:17:00 Document Registration [id number] 03/04/2011 02:21:00 Document Registration [id number] 12/08/2010 00:14:00 Document Registration [id number] 11/19/2010 01:03:00 Document Registration [id number] 09/27/2010 19:44:00 Document Registration [id number] 09/05/2010 21:53:00 Document Registration [id number] 08/27/2010 00:38:00 Document Registration [id number] 07/26/2010 21:56:00 Document Registration [id number] 07/17/2010 02:10:00 Document Registration [id number] 06/24/2010 00:46:00 Document Registration [id number] 04/27/2010 19:46:00 Document Registration [id number] 02/08/2010 15:04:00 Document Registration [id number] 02/07/2010 18:55:00 Document Registration [id number] 01/29/2010 19:51:00 Document Registration [id number] 01/11/2010 16:44:00 Document Registration [id number] 11/27/2009 14:35:00 Document Registration [id number] 10/20/2009 09:45:00 Document Registration [id number] 10/15/2009 17:15:00 Document Registration [id number] 09/12/2009 20:52:00 Document Registration [id number] 08/30/2009 19:09:00 Document Registration [id number] 08/22/2009 12:56:00 Document Registration [id number] 06/23/2009 17:08:00 Document Registration [id number] 01/22/2009 18:54:00 Document Registration [id number] 12/15/2008 16:50:00 Document Registration [id number] 09/14/2008 10:51:00 Document Registration [id number] 09/02/2008 21:06:00 Document Registration [id number] 08/28/2008 21:22:00 Document Registration [id number] 07/20/2008 10:04:00 Document Registration [id number] 07/11/2008 19:16:00 Document Registration [id number] 06/30/2008 19:32:00 Document Registration [id number] 06/13/2008 13:53:00 Document Registration [id number] 05/15/2008 20:46:00 Document Registration [id number] 05/12/2008 13:53:00 Document Registration [id number] 03/12/2008 19:30:00 Document Registration [id number] 02/16/2008 00:10:00 Document Registration [id number] 01/27/2008 15:56:00 Document Registration [id number] 01/01/2008 13:50:00 Document Registration [id number] 09/13/2007 17:59:00 Document Registration [id number] 06/30/2007 19:57:00 Document Registration [id number] 05/23/2015 19:57:00 05/23/2015 23:59:[id number] 05/19/2014 11:22:05 05/19/2014 23:59:59 CLS Outpatient Shady Burrell [id number] 04/28/2014 14:41:12 04/28/2014 23:59:59 CLS Outpatient Shady Burrell [id number] 01/26/2014 14:31:13 01/26/2014 23:59:59 CLS Outpatient Shady Burrell [id number] 12/23/2013 14:08:54 12/23/2013 23:59:59 CLS Outpatient Mary Torres [id number] 10/24/2013 15:36:16 10/24/2013 23:59:59 CLS Outpatient Shady Burrell [id number] 05/17/2018 14:24:08 05/17/2018 23:59:59 CLS Outpatient Satish Mireles [id number] 01/07/2018 14:42:12 01/07/2018 23:59:59 CLS Outpatient Satish Mireles [id number] 10/15/2017 08:38:26 10/15/2017 23:59:59 CLS Outpatient Marco Munoz [id number] 08/09/2017 14:31:36 08/09/2017 23:59:59 CLS Outpatient Marco Munoz [id number] 06/26/2017 10:37:35 06/26/2017 23:59:59 CLS Outpatient Marco Munoz [id number] 05/25/2017 16:53:38 05/25/2017 23:59:59 CLS Outpatient Marco Munoz [id number] 02/14/2017 10:22:43 02/14/2017 23:59:59 CLS Outpatient Marco Munoz [id number] 12/21/2015 16:42:00 12/21/2015 23:59:59 CLS Preadmit [facility] ED [id number] 02/07/2017 11:45:00 02/13/2017 11:10:00 DIS Inpatient GILLIAN ROMERO [facility] [id number] 12/01/2016 03:20:00 12/14/2016 11:10:00 DIS Inpatient GILLIAN ROMERO [facility] [id number] 11/09/2016 07:50:00 11/22/2016 14:45:00 DIS Inpatient GILLIAN ROMERO [facility] [id number] 06/25/2016 11:55:00 07/06/2016 15:30:00 DIS Inpatient GILLIAN ROMERO [facility] [id number] 02/13/2015 22:05:00 02/13/2015 23:59:59 CLS Preadmit [facility] L.ER [id number] 08/28/2015 21:00:00 08/28/2015 23:59:59 CLS Preadmit [facility] L.ER [id number] 05/31/2016 13:50:00 06/14/2016 12:30:00 DIS Inpatient STEVEN ROMERO, [facility] [id number] 06/01/2016 15:10:00 06/03/2016 13:20:00 DIS Inpatient JANI ROMERO, CL [facility] ICU [id number] 06/24/2016 20:10:00 06/24/2016 23:59:59 CLS Preadmit [facility] ED [id number] 03/05/2015 23:03:00 03/05/2015 23:59:59 CLS Preadmit [facility] L.ER [id number] 07/26/2017 10:45:00 Document Registration [id number] 11/08/2016 17:33:00 11/08/2016 23:59:59 CLS Preadmit [facility] L.ER [id number] 01/21/2016 18:37:00 01/21/2016 23:59:59 CLS Preadmit [facility] ED [id number] 11/30/2016 18:55:00 12/01/2016 00:30:00 DIS Emergency VASILE BECKWITH PA-C [facility] L.ER [id number] 11/08/2016 17:33:00 11/08/2016 18:50:00 DIS Emergency SOPHIE DISLA APRN [facility] L.ER [id number] 11/07/2016 18:02:00 11/07/2016 18:02:00 CAN Preadmit CRISTIAN COCHRAN [facility] L.ER [id number] 10/17/2016 22:21:00 10/18/2016 00:14:00 DIS Emergency RASHMI REINA [facility] L.ER [id number] 08/22/2016 10:31:00 08/22/2016 23:59:00 DIS Outpatient JOSE ALFREDOGUNDERSEN [facility] L.NPLAB [id number] 08/18/2016 08:29:00 08/18/2016 23:59:00 DIS CLI [facility] L.LAB [id number] 08/18/2016 08:28:00 08/18/2016 08:28:00 CAN Preadmit AMAYA SHAW DO [facility] [place] [id number] 06/12/2016 07:00:00 06/12/2016 23:59:59 CLS Preadmit [facility] L.LAB [id number] 05/26/2016 19:40:00 05/26/2016 23:59:00 DIS ER MANUELA WILBURN APRN [facility] L.ER [id number] 02/04/2016 08:22:00 02/04/2016 23:59:00 DIS Outpatient [facility] L. [id number] 01/19/2016 07:47:00 01/19/2016 23:59:00 DIS Outpatient [facility] L.LAB [id number] 01/06/2016 09:50:00 01/06/2016 23:59:00 DIS [facility] [id number] 12/27/2015 07:53:00 12/27/2015 23:59:00 DIS Outpatient [facility] L.LAB [id number] 12/25/2015 19:53:00 12/25/2015 21:35:00 DIS Emergency KULWANT GARCIA [facility] L.ER [id number] 12/23/2015 19:39:00 12/23/2015 22:10:00 DIS Emergency VASILE BECKWITHKosta [facility] L.ER [id number] 11/18/2015 22:15:00 11/19/2015 17:02:00 DIS Emergency JOEY GARCIA MD [facility] L.ER [id number] 10/23/2015 20:12:00 10/23/2015 21:43:00 DIS Emergency MANUELA WILBURN PIPE [employer]ELDING [facility] L.ER [id number] 10/02/2015 20:52:00 10/02/2015 21:20:00 DIS Emergency DANI MA MD [facility] L.ER [id number] 08/29/2015 21:22:00 08/30/2015 04:55:00 DIS Emergency VASILE BECKWITH PA-C [facility] L.ER [id number] 08/28/2015 21:00:00 08/28/2015 21:50:00 DIS Emergency MANUELA WILBURN APRN [facility] L.ER [id number] 08/27/2015 18:47:00 08/27/2015 20:40:00 DIS Emergency VASILE BECKWITH PA-C [facility] L.ER [id number] 06/29/2015 18:15:00 06/29/2015 20:01:00 DIS Emergency MERLY ROMERO, [facility] L.ER [id number] 06/18/2015 18:05:00 06/18/2015 22:05:00 DIS Emergency VASILE BECKWITH PA-C [facility] L.ER [id number] 06/16/2015 20:35:00 06/17/2015 09:40:00 DIS Inpatient MERLY ROMERO, [facility] [id number] 05/23/2015 19:57:00 05/23/2015 20:35:00 DIS Emergency REGINALDO THAYER [facility] L.ER [id number] 05/11/2015 21:48:00 05/11/2015 23:52:00 DIS Emergency OSWALDO ROMERO, [facility] L.ER [id number] 04/28/2015 08:05:00 04/28/2015 23:59:00 DIS Outpatient MERLY ROMERO, [facility] L.LAB [id number] 04/21/2015 09:41:00 04/21/2015 23:59:00 DIS Outpatient OSWALDO ROMERO, [facility].LAB [id number] 04/19/2015 19:53:00 04/19/2015 20:40:00 DIS Emergency FRANCESCA ROMERO, DANI [facility] L.ER [id number] 03/07/2015 22:00:00 03/07/2015 23:25:00 DIS Emergency VASILE BECKWITHC [facility] L. [id number] 03/05/2015 23:03:00 03/06/2015 00:21:00 DIS Emergency TANG VASILE Al MACIAS [facility] L. [id number] 02/27/2015 17:47:00 02/27/2015 23:59:00 DIS Outpatient WILBURN [facility] L. [id number] 02/13/2015 22:05:00 02/14/2015 00:42:00 DIS Emergency [facility] L. [id number] 02/03/2015 09:57:00 02/03/2015 23:59:00 DIS Outpatient MERLY ROMERO, SHADY [place] [facility] [id number] 01/20/2015 19:33:00 01/20/2015 20:40:00 [facility] [id number] 01/14/2015 12:00:00 01/14/2015 23:59:00 [facility] [id number] 12/31/2014 09:40:00 12/31/2014 23:59:00 DIS CLI[facility] [id number] 12/23/2014 09:30:00 12/23/2014 09:30:00 CAN [facility]readmit [facility] [id number] 12/21/2014 10:26:00 12/21/2014 23:59:00 DIS Outpatient [facility] [id number] 12/11/2014 14:20:00 12/11/2014 23:59:00 DIS CLI.APC [facility] [id number] 11/26/2014 11:20:00 11/26/2014 12:20:00 [facility] [id number] 11/16/2014 10:53:00 11/16/2014 23:59:00 DIS Outpatient MAGO [facility] L. [id number] 11/15/2014 19:26:00 11/15/2014 20:56:00 [facility] [id number] 11/13/2014 20:58:00 11/13/2014 22:29:00 DIS Emergency SOPHIE [facility] L.ER [id number] 10/19/2014 10:42:00 10/19/2014 23:59:00 DIS Outpatient MAGO [facility] L. [id number] 10/16/2014 14:12:00 10/16/2014 23:59:00 [facility] [id number] 09/21/2014 10:31:00 09/21/2014 23:59:00 [facility] [id number] 09/20/2014 21:10:00 09/20/2014 23:17:00 DIS Emergency VASILE BECKWITH PA-C [facility] L.ER [id number] 09/01/2014 13:30:00 09/01/2014 13:30:00 CAN Outpatient JACK ROMERO, JARETT Bond [facility] L. [id number] 08/29/2014 10:20:00 08/29/2014 13:00:00 DIS Emergency [facility] L.ER [id number] 05/26/2016 20:36:00 Document Registration [id number] 05/26/2016 20:36:00 Document Registration [id number] 05/26/2016 20:36:00 Document Registration [id number] 05/26/2016 20:36:00 Document Registration [id number] 05/26/2016 20:36:00 Document Registration [id number] 05/26/2016 20:36:00 Document Registration [id number] 06/16/2015 20:04:00 Document Registration [id number] 08/10/2014 13:51:00 Document Registration [id number] 07/21/2014 15:52:00 Document Registration [id number] 07/03/2014 10:57:00 Document Registration [id number] 06/01/2014 13:00:00 Document Registration [id number] 12/25/2013 20:06:00 Document Registration [id number] 10/09/2013 23:52:00 Document Registration [id number] 08/20/2013 21:40:00 Document Registration [id number] 08/19/2013 18:45:00 Document Registration [id number] 07/20/2013 21:32:00 Document Registration [id number] 07/15/2013 21:25:00 Document Registration [id number] 06/23/2013 21:57:00 Document Registration [id number] 04/25/2016 09:27:00 04/25/2016 09:27:00 DIS Outpatient [facility] [id number] 02/29/2016 14:55:00 02/29/2016 14:55:00 DIS Outpatient [facility] [id number] 11/05/2015 14:42:00 11/05/2015 14:42:00 DIS Outpatient [facility] [id number] 05/24/2015 14:12:00 05/24/2015 14:12:00 DIS Outpatient [facility] [id number] 07/25/2013 12:44:00 08/01/2013 09:48:00 DIS Inpatient [facility]
[2018-07-25 08:15] VITALS: BP 142/73
[2018-07-25] MEDS ORDERED: ceFAZolin 2 GM IV Premixed 50 ML IV ONE (08:30)
[2018-07-25] MEDS ORDERED: CATHETER FLUSH 10 ML SYR IV PRN (09:00)
[2018-07-25 09:09] LABS: BASOPHILS % (AUTO) 1 % (0-10); EOSINOPHILS # (AUTO) 0.1 10^3/uL (0.0-0.3); EOSINOPHILS % (AUTO) 1 % (0-10); HEMATOCRIT 44 % (40-54); HEMOGLOBIN 14.7 G/DL (13.3-17.7); LYMPHOCYTES # (AUTO) 1.2 X 10^3 (1.0-4.0); LYMPHOCYTES % (AUTO) 19 % (12-44); MEAN CORPUSCULAR HEMOGLOBIN 30 PG (25-34); MEAN CORPUSCULAR HGB CONC 34 G/DL (32-36); MEAN CORPUSCULAR VOLUME 89 FL (80-99); MEAN PLATELET VOLUME 9.7 FL (7.4-10.4); MONOCYTES # (AUTO) 0.6 X 10^3 (0.0-1.0); MONOCYTES % (AUTO) 9 % (0-12); NEUTROPHILS # (AUTO) 4.5 X 10^3 (1.8-7.8); NEUTROPHILS % (AUTO) 69 % (42-75); PLATELET COUNT 213 10^3/uL (130-400); RED CELL DISTRIBUTION WIDTH 15.2 % (10.0-14.5); WHITE BLOOD COUNT 6.4 10^3/uL (4.3-11.0)
[2018-07-25] MEDS: LACTATED RINGERS 1,000 ML IV PRN ×3 (09:15→14:28)
[2018-07-25] MEDS ORDERED: BUP/EPI 0.5% 1:200,000 (SENSORCAINE) 30 ML VIAL ONE (09:48)
[2018-07-25] MEDS ORDERED: LIDOCAINE 1% INJ 20 ML 20 ML VIAL ONE (09:48)
[2018-07-25] MEDS ORDERED: proPOfol 200 MG/20 ML (DIPRIVAN) VIAL IV ONE (09:49)
[2018-07-25] MEDS ORDERED: ROCURONIUM 10 MG/ML 5 ML SYRINGE IV ONE ×2 (09:49→13:27)
[2018-07-25] MEDS ORDERED: ONDANSETRON 4 MG/2 ML (SDV) Z0FRAN ONE ×2 (09:49→14:10)
[2018-07-25] MEDS ORDERED: LIDOCAINE PF 2% 5 ML (XYLOCAINE) VIAL ONE (09:49)
[2018-07-25] MEDS ORDERED: DEXAMETHASONE 10 MG/ML (DECADRON) 1 ML VIAL ONE (09:49)
[2018-07-25] MEDS ORDERED: MIDAZOLAM 2 MG/2 ML (VERSED) VIAL ONE (09:50)
[2018-07-25] MEDS ORDERED: fentaNYL INJECTION 100 MCG/2 ML AMP ONE (09:50)
[2018-07-25] MEDS ORDERED: MEPERIDINE (DEMEROL) INJ 50 MG/ML IVP ONE (10:00)
[2018-07-25] MEDS ORDERED: FAMOTIDINE 20MG/2ML IV (PEPCID) IV ONE (10:15)
--- NOTE | 2018-07-25 11:20 | Progress Note-Pre Operative ---
Pre-Operative Progress Note H&P Reviewed The H&P was reviewed, patient examined and no changes noted. Time Seen by Provider: 09:36 Date H&P Reviewed: Jul 25, 2018 Time H&P Reviewed: 09:37 Pre-Operative Diagnosis: Abdominal pain TAISHA CINTRON DO Jul 25, 2018 11:20
[2018-07-25] MEDS ORDERED: HYDROmorphone 2 MG/ML VIAL (DILAUDID) ONE ×2 (11:56→14:10)
[2018-07-25] MEDS ORDERED: ROPIVACAINE 5MG/ML 30ML VIAL ONE (13:27)
[2018-07-25] MEDS ORDERED: SUGAMMADEX 500 MG/5 ML VIAL (BRIDION) IV ONE (13:38)
[2018-07-25] MEDS ORDERED: ONDANSETRON 4 MG/2 ML (SDV) Z0FRAN IVP PRN (14:00)
[2018-07-25] MEDS ORDERED: HYDROmorphone 2 MG/ML VIAL (DILAUDID) IV ONE (14:00)
[2018-07-25] MEDS ORDERED: SEVOFLURANE (ULTANE) 15 ML INHAL SOLN ONE (14:05)
[2018-07-25 15:10] VITALS: BP 153/73
--- NOTE | 2018-07-25 15:10 | NUR ---
Pt to room 413 from recovery.
[2018-07-25] MEDS: LACTATED RINGERS 1,000 ML IV SCH ×2 (15:40→22:36)
[2018-07-25] MEDS ORDERED: HYDROmorphone 2 MG/ML VIAL (DILAUDID) IVP PRN (15:45)
--- NOTE | 2018-07-25 16:01 | Progress Note-Post Operative ---
Post-Operative Progess Note Surgeon (s)/Safety Supervisor (s) Surgeon TAISHA CINTRON DO Safety Supervisor: Urvashi Pre-Operative Diagnosis Abdominal pain Post-Operative Diagnosis Same with Adhesions Enterotomy Procedure & Operative Findings Date of Procedure 07/25/18 Procedure Performed/Findings Diagnostic Laparoscopy with ISAAC Exploratory Laparotomy and repair of enterotomy Anesthesia Type GET Estimated Blood Loss Estimated blood loss (mL): scant Specimens/Packing Specimens Removed none TAISHA CINTRON DO Jul 25, 2018 16:01
[2018-07-25] MEDS: HYDROmorphone 2 MG/ML VIAL (DILAUDID) IVP PRN ×6 (17:49→23:35)
--- NOTE | 2018-07-25 18:20 | NUR ---
Straight cath performed per Dr. Sheikh order. 250 mL out, pt tolerated well.
[2018-07-25 19:44] VITALS: BP 180/78
--- NOTE | 2018-07-25 22:53 | NUR ---
CONTACTED DR CINTRON REGARDING PATIENT REQUESTING 0.5MG DILAUDID Q1H. NO CHANGE TO ORDER.
[2018-07-26 00:25] VITALS: BP 185/84
[2018-07-26] MEDS: HYDROmorphone 2 MG/ML VIAL (DILAUDID) IVP PRN ×7 (00:39→06:59)
[2018-07-26 04:00] VITALS: BP 174/81
[2018-07-26] MEDS: LACTATED RINGERS 1,000 ML IV SCH ×2 (06:46→15:40)
--- NOTE | 2018-07-26 07:04 | Anesthesia-General Post-Op ---
General Patient Condition Pain: Uncontrolled (Pt calling out in pain during am rounding. Nursing staff reports patient has been requiring round the clock pain medications and still c/ o pain since arrival to the floor. Ultrasound guided TAP block done @ case end. ) Post Op Complications Complications None Follow Up Care/Instructions Patient Instructions None needed. Anesthesia/Patient Condition Patient Condition Patient has stable vital signs, no apparent adverse anesthesia problems. No complications reported per nursing. JULIA FROST CRNA Jul 26, 2018 07:04
[2018-07-26 08:00] VITALS: BP 191/88
--- OUTSIDE RECORDS SUMMARY | 2018-07-26 10:31 | XMS REPORT | Continuity of Care Document ---
Author Organization Unknown Address Unknown Allergies Active Description Code Type Severity Reaction Onset Reported/Identified Relationship to Patient Clinical Status Yes fentaNYL Drug N/A N/A Yes Medrol Dosepak Drug N/A N/A Yes NSAIDs 385 Drug N/A N/A Yes Reglan Drug N/A N/ A Yes Toradol Drug N/A N /A Yes COMPAZINE 437443 Fatal Other (Fatal) Yes FENTANYL 4337 Moderate Hives (Moderate) Yes NSAIDS (NON-STEROIDAL ANTI-INFLAMMATORY DRUG) Severe Other (Severe) Yes REGLAN 9230 N/A N/ A Yes Metoclopramide HCl [id number] Drug Allergy Moderate N/A Yes Morphine Sulfate [id number] Drug Allergy Moderate hives Yes NSAIDs [id number] Drug Allergy Moderate N/A Yes Prochlorperazine [id number] Drug Allergy Moderate N/A Yes FENTANYL UNKNOWN [...] Unknown BLEEDING STOMAC 06/03/2014 Yes METOCLOPRAMIDE HCL [id number] Drug Allergy Moderate N/A 07/10/2014 Yes NSAIDS (NON-STEROIDAL ANTI-INFLAMMA [id number] Drug Allergy Moderate N/A Yes PROCHLORPERAZINE [id number] Drug Allergy Mild N/A 07/10/2014 Yes KETOROLAC TROMETHAMINE [id number] Drug Allergy N/A N/A 07/10/2014 Yes METOCLOPRAMIDE HCL [id number] Drug Allergy Moderate N/A 07/10/2014 Yes NSAIDS (NON-STEROIDAL ANTI-INFLAMMA [id number] Drug Allergy Moderate N/A Yes PROCHLORPERAZINE [id number] Drug Allergy Mild N/A 07/10/2014 Yes KETOROLAC TROMETHAMINE [id number] Drug Allergy N/A N/A 07/10/2014 Yes KETOROLAC TROMETHAMINE M332642705 Drug Allergy N/A N/A 07/10/2014 Yes METOCLOPRAMIDE HCL R600077372 Drug Allergy Moderate N/A 07/10/2014 Yes NSAIDS (NON-STEROIDAL ANTI-INFLAMMA J592192464 Drug Allergy Moderate N/A Yes PROCHLORPERAZINE [id number] Drug Allergy Mild N/A 07/10/2014 Yes KETOROLAC TROMETHAMINE I786263602 Drug Allergy N/A N/A 07/10/2014 Yes METOCLOPRAMIDE HCL I636135118 Drug Allergy Moderate N/A 07/10/2014 Yes NSAIDS (NON-STEROIDAL ANTI-INFLAMMA [id number] Drug Allergy Moderate N/A Yes PROCHLORPERAZINE [id number] Drug Allergy Mild N/A 07/10/2014 Yes METOCLOPRAMIDE HCL C642322011 Drug Allergy Moderate N/A 07/10/2014 Yes NSAIDS (NON-STEROIDAL ANTI-INFLAMMA [id number] Drug Allergy Moderate N/A Yes MORPHINE [id number] Drug Allergy Mild N/A 07/10/2014 Yes PROCHLORPERAZINE H067904670 Drug Allergy Mild N/A 07/10/2014 Yes KETOROLAC TROMETHAMINE Y833451932 Drug Allergy N/A N/A 07/10/2014 Yes MORPHINE S456272049 Drug Allergy Severe HIVES 06/16/2015 Yes MORPHINE W109585389 Drug Allergy Severe HIVES 06/16/2015 Yes MORPHINE [id number] Drug Allergy Severe HIVES 06/16/2015 Yes MORPHINE K411253492 Drug Allergy Severe HIVES 06/16/2015 Yes MORPHINE R886967490 Drug Allergy Severe HIVES 06/16/2015 Yes prochlorperazine maleate C604952578 Drug Allergy Severe N/A 07/01/2015 Yes metoclopramide HCl C911046594 Drug Allergy Severe N/A 09/27/2015 Yes morphine X912249217 Drug Allergy Severe N/A 09/27/2015 Yes prochlorperazine edisylate C753933607 Drug Allergy Severe N/A 2015 Yes cefazolin E759087761 Drug Allergy Unknown N/A 10/26/2015 Yes ketorolac Q923364385 Drug Allergy N/A N/A 05/31/2016 Yes metoclopramide K496871580 Drug Allergy N/A N/A 05/31/2016 Yes morphine L806482847 Drug Allergy N/A N/A 05/31/2016 Yes prochlorperazine H220564070 Drug Allergy N/A N/A 05/31/2016 Yes aspirin aspirin Drug Allergy Unknown NONE 10/05/2016 Yes metoclopramide HCl metoclopramide HCl Drug Allergy Unknown NONE 2016 Yes morphine morphine Drug Allergy Unknown NONE 10/05/2016 Yes NSAIDS (Non-Steroidal Anti-Inflamma NSAIDS (Non- Steroidal Anti-Inflamma Drug Allergy Unknown NONE 10/05/2016 Yes prochlorperazine edisylate prochlorperazine edisylate Drug Allergy Unknown NONE 10/05/2016 Yes fentanyl I475293175 Drug Allergy Unknown N/A 02/04/2018 Yes ketorolac E202238997 Drug Allergy Unknown N/A 02/04/2018 Yes metoclopramide K937671894 Drug Allergy Unknown N/A 02/04/2018 Yes morphine U159307883 Drug Allergy Unknown N/A 02/04/2018 Yes NSAIDS (Non-Steroidal Anti-Inflamma H085063704 Drug Allergy Unknown N/A Yes NSAIDS (Non-Steroidal Anti-Inflamma [id number] Drug Allergy Moderate GI UPSET 03/26/2018 Yes fentanyl Y130389962 Drug Allergy Mild RASH 03/26/2018 Yes ketorolac M614959319 Drug Allergy Mild RASH 03/26/2018 Yes metoclopramide J232133806 Drug Allergy Mild NERVOUSNESS 03/26/2018 Yes morphine G653546648 Drug Allergy Mild RASH 03/26/2018 Yes fentanyl F968407963 Drug Allergy Mild RASH, Pt has re 07/25/2018 Yes morphine W329799885 Drug Allergy Mild RASH, pt has re 07/25/2018 Yes prochlorperazine T763176845 Drug Allergy Unknown N/A 07/25/2018 Medications Medication Packaging Start Date Stop Date [...] CAP 100 MG (NEURONTIN) MG 07/26/2017 08/24/2017 QHS&2099 QUETIAPINE TAB 25 MG (SEROQUEL) MG 07/26/2017 [...] 07/27/2017 08/25/2017 Daily&0900 MultiVits (Thera M Plus) (hjoelttx-tvdl-vlmgivl) oral tablet TAB 07/27/2017 08/25/2017 Daily&0900 SALINE NASAL MIST LIQ (OCEAN SPRAY) Dose(s) 07/27/2017 08/06/2017 PRN QAM THIAMINE TAB 100 MG (VITAMIN B1) MG 07/27/2017 08/02/2017 Daily&0900 BISACODYL SUPPOS 10 MG (DULCOLAX SUPPOS) MG 07/27/2017 08/26/2017 PRN Daily CYANOCOBALAMIN TAB 1000 MCG (VIT B 12) MCG 07/27/2017 08/02/2017 Daily&0900 NICOTINE PATCH PAT 21 MG (NICODERM) MG 07/27/2017 08/25/2017 Daily&0900 Spfwbjvx-wuhn-sjm-folic acid) tab,CHEWable (Centrum) TAB 07/27/2017 08/25/2017 Daily&0900 SIMVASTATIN TAB 10 MG (ZOCOR) MG 08/06/2017 QPM&2000 OXYCODONE IR TAB 5 MG (OXY IR (IMMEDIATE RELEASE)) MG 07/31/2017 08/07/2017 TID&0800,1400,2000 BUDESONIDE/FORMOTEROL INH 80 /4.5 MCG (SYMBICORT ) PUFFS 07/31/2017 08/07/2017 BID&0800,2000 LACTULOSE SYRUP LIQ 20 GM/30CC (CHRONULAC SYRUP) GM 07/31/2017 08/10/2017 BID&0800,2000 GABAPENTIN TAB 800 MG (NEURONTIN) MG 07/31/2017 08/06/2017 QHS&2099 DULOXETINE CAP 30 MG (CYMBALTA) MG 07/31/2017 [...] 08/01/2017 08/07/2017 Daily&0900 MultiVits (Thera M Plus) (udcffzmp-vxqi-iieodok) oral tablet TAB 08/01/2017 08/30/2017 Daily&0900 THIAMINE [...] CONTUSION OF HIP 01/19/2012 Other 959.8 INJURY LENS MOLDER SITE/SITE NEC 01/19/2012 Other E849.0 ACCIDENT IN HOME 01/19/2012 Other E885.9 FALL FROM SLIPPING, TRIPPING, OR STUMBLING NEC 03/29/2012 Other 496 CHR AIRWAY OBSTRUCT NEC 05/15/2012 Other 401.9 HYPERTENSION NOS 05/15/2012 Other 496 CHR AIRWAY OBSTRUCT NEC 05/15/2012 Other V76.44 SCREEN MAL NEOP-PROSTATE 06/19/2012 Other 338.11 ACUTE PAIN DUE TO TRAUMA 06/19/2012 Other 924.01 CONTUSION OF HIP 06/19/2012 Other 959.8 INJURY LENS MOLDER SITE/SITE NEC 06/19/2012 Other E849.0 ACCIDENT IN HOME 06/19/2012 Other E888.9 FALL NOS 06/19/2012 Other V58.63 LONG-TERM (CURRENT)USE OF ANTIPLATELET/ANTITHROMBOTIC 04/03/2013 NICKOLAS ROMERO, ERNANDEZ R Ot 724.2 LUMBAGO 04/15/2013 CARROLL BROTHERS [...] MD Final 338.29 CHRONIC PAIN NEC 04/30/2013 Flaguni Edmond MD Final 401.9 HYPERTENSION NOS 04/30/2013 Falguni Edmond MD Final 438.89 OTH LATE EFFECT CVD 04/30/2013 Falguni Edmond MD 724.2 LUMBAGO 04/30/2013 Falguni Edmond MD Final 780.79 MALAISE FATIGUE NEC 05/27/2013 Reginaldo Oliveira DO Final 305.1 TOBACCO USE DISORDER 05/27/2013 Reginaldo Oliveira DO Final 338.29 CHRONIC PAIN NEC 05/27/2013 Reginaldo Oliveira DO R Final 401.9 HYPERTENSION NOS 05/27/2013 Reginaldo Oliveira DO R Final 496 CHRONIC AIRWAY OBSTR NEC [...] NOS 07/25/2013 Other 414.01 CORONARY ATHEROSCLEROSIS OF [place] CORONARY VESSEL 07/25/2013 Other 427.61 ATRIAL PREMATURE [...] LESS THAN 19, ADULT 08/01/2013 FALGUNI LING 24350 RECUR DEPR PSYCH-SEVERE 08/13/2013 Other 311 DEPRESSIVE [...] Betancourt F 305.1 TOBACCO USE DISORDER 05/06/2014 Bert Powell MD F 401.9 HYPERTENSION NOS 05/06/2014 Andre ROMERO, Bret Betancourt F 410.71 AC MYOCARDIAL INFARCT,SUBENDO INFARCT,INITIAL EPIS 05/06/2014 Bret Powell MD F 427.31 ATRIAL FIBRILLATION 05/06/2014 Andre ROMERO, rBet Betancourt F 496 CHR AIRWAY OBSTRUCT NEC [...] NEC/NOS 07/21/2014 Other 414.01 CORONARY ATHEROSCLEROSIS OF [place] CORONARY VESSEL 07/21/2014 Other 496 CHR AIRWAY [...] Other 414.00 CORON ATHEROSCLER NOS TYPE VESSEL, [place] OR GRAFT 08/06/2014 Other 427.31 ATRIAL FIBRILLATION [...] ANXIETY STATE NOS 09/03/2014 SABINA SALINAS MD Other 305.1 TOBACCO USE DISORDER 09/03/2014 SABINA SALINAS MD 311 DEPRESSIVE DISORDER NEC 09/03/2014 SABINA SALINAS MD 338.29 OTHER CHRONIC PAIN 09/03/2014 SABINA SALINAS MD 401.9 HYPERTENSION NOS 09/03/2014 SABINA SALINAS MD Other 414.01 CORONARY ATHEROSCLEROSIS OF [place] CORONARY VESSEL 09/03/2014 SABINA SALINAS MD 427.31 ATRIAL FIBRILLATION 09/03/2014 SABINA SALINAS MD Other 438.20 LATE EFF-CEREBR DIS,HEMIPLEGIA AFFECTING UNSPECIFIED SIDE 09/03/2014 SABINA SALINAS MD Other 458.9 HYPOTENSION NOS 09/03/2014 SABINA SALINAS MD 496 CHR AIRWAY OBSTRUCT NEC 09/03/2014 SABINA SALINAS MD 530.81 ESOPHAGEAL REFLUX 09/03/2014 SABINA SALINAS MD 564.00 UNSPEC CONSTIPATION 09/03/2014 SABINA SALINAS MD 578.9 GASTROINTEST HEMORR NOS 09/03/2014 SABINA SALINAS MD Other 599.0 URIN TRACT INFECTION NOS 09/03/2014 SABINA [...] JASBIR BAÑUELOS MD 414.01 CORONARY ATHEROSCLEROSIS OF [place] CORONARY VESSEL 09/04/2014 JASBIR BAÑUELOS MD 427.31 [...] JASBIR BAÑUELOS MD 414.01 CORONARY ATHEROSCLEROSIS OF [place] CORONARY VESSEL 09/04/2014 JASBIR BAÑUELOS MD 427.31 [...] BAÑUELOS MD Other 414.01 CORONARY ATHEROSCLEROSIS OF [place] CORONARY VESSEL 09/04/2014 JASBIR BAÑUELOS MD Other [...] MD Other 272.4 HYPERLIPIDEMIA NEC/NOS 09/04/2014 JASBIR BAUÑELOS MD Other 280.0 CHR BLOOD LOSS ANEMIA 09/04/2014 JASBIR BAÑUELOS MD Other 300.00 ANXIETY STATE NOS 09/04/2014 JASBIR BAÑUELOS MD Other 311 DEPRESSIVE DISORDER NEC 09/04/2014 JASBIR BAÑUELOS MD Other 338.29 OTHER CHRONIC PAIN 09/04/2014 JASBIR BAÑUELOS MD Other 401.9 HYPERTENSION NOS 09/04/2014 JASBIR BAÑUELOS MD Other 414.01 CORONARY ATHEROSCLEROSIS OF [place] CORONARY VESSEL 09/04/2014 JASBIR BAÑUELOS MD Other [...] BAÑUELOS MD Other 414.01 CORONARY ATHEROSCLEROSIS OF [place] CORONARY VESSEL 09/04/2014 JASBIR BAÑUELOS MD Other [...] BAÑUELOS MD Other 414.01 CORONARY ATHEROSCLEROSIS OF [place] CORONARY VESSEL 09/08/2014 JASBIR BAÑUELOS MD Other [...] MERCEDES DO 780.79 OTH MALAISE FATIGUE 10/16/2014 MAGO DO, MARVIN O Other 451.83 PHLEBITIS THROMBOPHLEBITIS,DEEP VEINS UPPER EXT 10/16/2014 MARVIN MERCEDES DO Other 780.79 OTH MALAISE FATIGUE 10/16/2014 MARVIN MERCEDES DO Other 451.83 PHLEBITIS THROMBOPHLEBITIS,DEEP VEINS UPPER EXT 10/16/2014 MARVIN MERCEDES DO Other 719.45 JOINT PAIN-PELVIS 10/16/2014 MARVIN MERCEDES DO Other 780.79 OTH MALAISE FATIGUE 10/19/2014 MARVIN MERCEDES DO DG 451.83 PHLEBITIS THROMBOPHLEBITIS,DEEP VEINS UPPER EXT 10/19/2014 MARVIN MERCEDES DO Other 451.83 PHLEBITIS THROMBOPHLEBITIS,DEEP VEINS UPPER EXT 10/19/2014 MARVIN MERCEDES DO Other 451.83 PHLEBITIS THROMBOPHLEBITIS,DEEP VEINS UPPER EXT 11/13/2014 SOPHIE DISLA APRN Other 414.00 CORON ATHEROSCLER NOS TYPE VESSEL, [place] OR GRAFT 11/13/2014 SOPHIE DISLA APRN Other [...] MERCEDES DO M54.5 LOW BACK PAIN 01/14/2015 MAGO DO, MARVIN O Other K21.9 GASTRO-ESOPHAGEAL REFLUX DISEASE WITHOUT ESOPHAGITIS 01/14/2015 MARVIN MERCEDES DO Other M54.5 LOW BACK PAIN 01/20/2015 MARVIN MERCEDES DO Other S79.911A UNSPECIFIED INJURY OF RIGHT HIP, INITIAL ENCOUNTER 01/20/2015 MARVIN MERCEDES DO Other W06.XXXA FALL FROM BED, INITIAL ENCOUNTER 01/20/2015 MARVIN MERCEDES DO Other Y92.092 BEDROOM IN [facility] NON-INSTITUTIONAL RESIDENCE PLACE 02/02/2015 SHADY MOERLAND MD Other G45.9 TRANSIENT CEREBRAL ISCHEMIC ATTACK, [...] APRN Other R10.84 GENERALIZED ABDOMINAL PAIN 02/14/2015 MAUNELA WILBURN APRN Other R11.0 NAUSEA 02/14/2015 MANUELA [...] BECKWITH PA-C Other Y92.[address] IN [facility] NON-INSTITUT (PRIVATE) RESIDENCE PLACE 03/07/2015 VASILE BECKWITH [...] R41.3 OTHER AMNESIA 04/22/2015 LIZBETH COLBERT MD R41.3 OTHER AMNESIA 04/26/2015 Oswaldo ROMERO, Lizbeth F 305.50 Opiod abuse, NOS 04/26/2015 FIONA RETANA MD P Ot I10 ESSENTIAL (PRIMARY) HYPERTENSION 04/26/2015 FIONA RETANA MD P Ot M25.551 PAIN IN RIGHT HIP 04/26/2015 FIONA RETANA MD Ot M54.5 LOW BACK PAIN 04/26/2015 FIONA RETANA MD Ot S70.01XA CONTUSION OF RIGHT HIP, [...] 05/11/2015 LIZBETH COLBERT MD Other Z79.899 OTHER CORRECTION (CURRENT) DRUG THERAPY 05/12/2015 Oswaldo ROMERO, Lizbeth [...] 05/19/2015 NOÉ SHELTON MD Other Y92.002 [address] [facility] 05/19/2015 NOÉ SHELTON MD Other Y99.9 [...] INITIAL ENCOUNTER 05/23/2015 REGINALDO THAYER Other Y92.019 [facility] PLACE IN SINGLE-FAMILY (PRIVATE) HOUSE PLACE 05/24/2015 MACIE HERNÁNDEZ [id number] CORRECTION (CURRENT) USE OF OPIATE ANALGESIC 05/25/2015 LIZBETH COLBERT MD Ot I67.82 05/25/2015 OSWALDO ROMERO, LIZBETH Queen Ot R41.2 05/25/2015 LIZBETH COLBERT MD Ot R41.3 05/28/2015 Ot 305.1 05/28/2015 Ot 401.9 05/28/2015 Ot 496 05/28/2015 Ot 786.50 05/28/2015 OSWALDO ROMERO, LIZBETH M Ot I67.82 05/28/2015 OSWALDO ROMERO, LIZBETH M Ot R41.2 05/28/2015 OSWALDO ROMERO, LIZBETH M Ot R41.3 06/16/2015 GREGORY AGUILA KEYA Queen Ot M94.0 CHONDROCOSTAL JUNCTION SYNDROME [TIETZE] 06/16/2015 GREGORY AGUILA KEYA Queen Ot R07.89 OTHER CHEST PAIN 06/17/2015 SHADY MORELAND MD F32.9 MAJOR DEPRESSIVE DISORDER, SINGLE EPISODE, UNSPECI 06/17/2015 SHADY MORELAND MD F41.9 ANXIETY DISORDER, UNSPECIFIED 06/17/2015 SHADY MORELAND MD I10 ESSENTIAL (PRIMARY) HYPERTENSION 06/17/2015 SHADY MORELAND MD I25.118 ATHSCL HEART DISEASE OF [place] COR ART W OTH ANG P 06/17/2015 [...] MORELAND MD I25.118 ATHSCL HEART DISEASE OF [place] COR ART W OTH ANG PCTRS 06/17/2015 SHADY MORELAND MD I48.91 UNSPECIFIED ATRIAL FIBRILLATION 06/17/2015 SHADY MORELAND MD Other J44.9 CHRONIC OBSTRUCTIVE PULMONARY DISEASE, UNSPECIFIED 06/17/2015 SHADY MORELAND MD Other K21.9 GASTRO-ESOPHAGEAL REFLUX DISEASE WITHOUT ESOPHAGITIS 06/17/2015 [...] CHEST PAIN 06/18/2015 VASILE BECKWITH PA-C Z79.891 UPSETTER (CURRENT) USE OF OPIATE ANALGESIC 06/18/2015 VASILE BECKWITH PA-C Other R07.89 OTHER CHEST PAIN 06/18/2015 VASILE BECKWITH PA-C Other Z79.891 CORRECTION (CURRENT) USE OF OPIATE ANALGESIC 06/23/2015 KEYA JENKINS DO Ot M94.0 06/23/2015 KEYA JENKINS DO Ot R07.89 06/23/2015 KEYA JENKINS DO Ot M94.0 06/23/2015 KEYA JENKINS DO Ot R07.89 06/27/2015 JARETT RUSH MD F17.210 NICOTINE DEPENDENCE, CIGARETTES, UNCOMPLICATED 06/27/2015 JARETT RUSH MD R06.00 DYSPNEA, UNSPECIFIED 06/27/2015 JARETT RUSH MD R07.89 OTHER CHEST PAIN 06/27/2015 JARETT RUSH MD F17.210 NICOTINE DEPENDENCE, CIGARETTES, UNCOMPLICATED 06/27/2015 JARETT RUSH MD R06.00 DYSPNEA, UNSPECIFIED 06/27/2015 JARETT RUSH MD R07.89 OTHER CHEST PAIN 06/29/2015 SHADY MORELAND MD F11.20 OPIOID DEPENDENCE, UNCOMPLICATED 06/29/2015 SHADY MORELAND MD DG I25.10 ATHSCL HEART DISEASE OF [place] CORONARY ARTERY W/O 06/29/2015 MERLY ROMERO, SHADY Hamilton DG R07.89 OTHER CHEST PAIN 06/29/2015 SHADY MORELAND MD Other F11.20 OPIOID DEPENDENCE, UNCOMPLICATED 06/29/2015 SHADY MORELAND MD Other I25.10 ATHSCL HEART DISEASE OF [place] CORONARY ARTERY W/O ANG PCTRS 06/29/2015 SHADY MORELAND MD Other R07.89 OTHER CHEST PAIN 07/01/2015 MAYRA ROMERO, ADORE Ot R07.89 OTHER CHEST PAIN 07/06/2015 MAYRA ROMERO, ADORE Ot R07.89 07/28/2015 MAYRA ROMERO, ADORE Ot [...] 08/30/2015 VASILE BECKWITH PA-C Other Z79.899 OTHER UPSETTER (CURRENT) DRUG THERAPY 09/27/2015 Ot F10.120 ALCOHOL [...] 10/23/2015 MANUELA WILBURN APRN Other Z79.899 OTHER UPSETTER (CURRENT) DRUG THERAPY 10/26/2015 AWAIS OLMOS MD Ot S70.02XA CONTUSION OF LEFT HIP, INITIAL ENCOUNTER 10/29/2015 AWAIS OLMOS MD Ot S70.02XA CONTUSION OF LEFT HIP, INITIAL ENCOUNTER 11/04/2015 MACIE HERNÁNDEZ P Z79.891 UPSETTER (CURRENT) USE OF OPIATE ANALGESIC 11/19/2015 JOEY GARCIA MD Other F10.180 ALCOHOL ABUSE WITH ALCOHOL-INDUCED ANXIETY DISORDER 11/19/2015 JOEY GARCIA MD Other F32.9 MAJOR DEPRESSIVE DISORDER, SINGLE EPISODE, UNSPECIFIED 11/19/2015 JOEY GARCIA MD Other I25.10 ATHSCL HEART DISEASE OF [place] CORONARY ARTERY W/O ANG PCTRS 11/19/2015 JOEY [...] MD Other F10.20 ALCOHOL DEPENDENCE, UNCOMPLICATED 11/23/2015 DEBORAH ROMERO, STEVEN Castro Other F17.210 NICOTINE DEPENDENCE, CIGARETTES, UNCOMPLICATED 11/23/2015 DEBORAH ROMERO, TSEVEN Castro Other 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, RECURRENT SEVERE W/O PSYCH FEATURES 11/23/2015 STEVEN CABRERA MD Other I10 ESSENTIAL (PRIMARY) HYPERTENSION 11/23/2015 STEVEN CABRERA MD Other I25.10 ATHSCL HEART DISEASE OF [place] CORONARY ARTERY W/O ANG PCTRS 11/23/2015 STEVEN CABRERA MD Other J44.9 CHRONIC OBSTRUCTIVE PULMONARY DISEASE, UNSPECIFIED 11/23/2015 STEVEN CABRERA MD Other J45.909 UNSPECIFIED ASTHMA, UNCOMPLICATED 11/23/2015 STEVEN CABRERA MD Other K21.9 GASTRO-ESOPHAGEAL REFLUX DISEASE WITHOUT ESOPHAGITIS 11/23/2015 STEVEN CABRERA MD Other R45.851 SUICIDAL IDEATIONS 11/23/2015 DEBORAH ROMERO, [...] PAIN 12/25/2015 KULWANT GARCIA Other Z79.899 OTHER UPSETTER (CURRENT) DRUG THERAPY 12/27/[address] DO I10 ESSENTIAL (PRIMARY) HYPERTENSION 12/27/2015 NEDICH DO, MITRA L DG R06.02 SHORTNESS OF BREATH 12/27/2015 NEDICH DO MITRA L DG R07.9 CHEST PAIN, UNSPECIFIED 12/27/2015 NEDICH DO MITRA L Other I10 ESSENTIAL (PRIMARY) HYPERTENSION 12/27/2015 NEDICH DO, MITRA L Other R06.02 SHORTNESS OF BREATH 12/27/2015 NEDICH DO MITRA L Other R07.9 CHEST PAIN, UNSPECIFIED 01/06/2016 ROBYNJOSE Alfonso PERINATAL BREASTFEEDING ASSISTANT-C Other E04.9 NONTOXIC GOITER, UNSPECIFIED 01/19/2016 NEDICH DO, MITRA L DG F10.27 ALCOHOL DEPENDENCE WITH ALCOHOL-INDUCED PERSISTING 01/19/2016 NEDICH DO MITRA L DG N18.3 CHRONIC KIDNEY DISEASE, STAGE 3 (MODERATE) 01/19/2016 NEDICH DO MITRA L DG R31.9 HEMATURIA, UNSPECIFIED 01/19/2016 [...] WITH INTOXICATION, UNCOMPLICATED 01/25/2016 DAVE JARVIS DO Michelle Other R45.851 SUICIDAL IDEATIONS 01/25/2016 DAVE JARVIS DO Michelle Other Y90.9 PRESENCE OF ALCOHOL IN BLOOD, LEVEL NOT SPECIFIED 01/25/2016 DAVE JARVIS DO Other Z79.51 UPSETTER (CURRENT) USE OF INHALED STEROIDS 01/25/2016 DAVE [...] OF FALLING 02/29/2016 MACIE HERNÁNDEZ P Z79.891 UPSETTER (CURRENT) USE OF OPIATE ANALGESIC 03/23/2016 ALBA COLLINS DO Other M25.559 PAIN IN UNSPECIFIED HIP 03/23/2016 ALBA COLLINS DO Other M25.559 PAIN IN UNSPECIFIED HIP 03/30/2016 ALBA COLLINS DO Other M25.559 PAIN IN UNSPECIFIED HIP 03/31/2016 ALBA COLLINS DO Other M25.559 PAIN IN UNSPECIFIED HIP 03/31/2016 ALBA COLLINS DO Other M25.551 PAIN IN RIGHT HIP 03/31/2016 KARINA ALBA AGUILA M25.559 PAIN IN UNSPECIFIED HIP 03/31/2016 KARINA AGUILAALBA Z96.641 PRESENCE OF RIGHT ARTIFICIAL HIP JOINT 04/04/2016 KARINA AGUILAALBA M25.559 PAIN IN UNSPECIFIED HIP 04/04/2016 KARINA ALBA Other M25.551 PAIN IN RIGHT HIP 04/07/2016 KARINA AGUILAALBA Other M25.559 PAIN IN UNSPECIFIED HIP 04/07/2016 KARINA ALBA Other M25.551 PAIN IN RIGHT HIP 04/07/2016 KARINA ALBA Other M25.559 PAIN IN UNSPECIFIED HIP 04/07/2016 KARINA ALBA M25.551 PAIN IN RIGHT HIP 04/25/2016 MACIE HERNÁNDEZ Z79.891 UPSETTER (CURRENT) USE OF OPIATE ANALGESIC 05/26/2016 MANUELA WILBURN APRN F10.129 ALCOHOL ABUSE WITH INTOXICATION, UNSPECIFIED 05/26/2016 MANUELA WILBURN APRN T50.902A POISONING BY UNSP DRUG/MEDS/BIOL SUBST, SELF-HARM, 05/26/2016 MANUELA WILBURN APRN Z79.899 OTHER UPSETTER (CURRENT) DRUG THERAPY 05/31/2016 MITZI BARAJAS MD Other F10.229 ALCOHOL DEPENDENCE WITH INTOXICATION, UNSPECIFIED 05/31/2016 MITZI BARAJAS MD Other F17.210 NICOTINE DEPENDENCE, CIGARETTES, UNCOMPLICATED 05/31/2016 MITZI BARAJAS MD Other 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, RECURRENT SEVERE W/O PSYCH FEATURES 05/31/2016 MITZI BARAJAS MD Other G89.4 CHRONIC PAIN SYNDROME 05/31/2016 MITZI BARAJAS MD Other H35.30 UNSPECIFIED MACULAR DEGENERATION 05/31/2016 MITZI BARAJAS MD Other I10 ESSENTIAL (PRIMARY) HYPERTENSION 05/31/2016 MITZI BARAJAS MD I25.10 ATHSCL HEART DISEASE OF [place] CORONARY ARTERY W/O ANG PCTRS 05/31/2016 MITZI BARAJAS MD Other I25.2 OLD MYOCARDIAL INFARCTION 05/31/2016 TRENT SOLITARIO MD MITZI M Other J45.909 UNSPECIFIED ASTHMA, UNCOMPLICATED 05/31/2016 TRENT SOLITARIO MD MITZI M Other M25.551 PAIN IN RIGHT HIP 05/31/2016 MITZI [...] MD M54.5 Low back pain 07/06/2016 RONY FRNECH MD R00.1 Bradycardia, unspecified 07/06/2016 RONY FRENCH MD R45.851 Suicidal ideations 08/18/[address]ER DO D75.1 SECONDARY POLYCYTHEMIA 08/18/2016 MITRA STREETER DO E78.5 HYPERLIPIDEMIA, UNSPECIFIED 08/18/[address] DO I10 ESSENTIAL (PRIMARY) HYPERTENSION 08/18/[address]ER DO J20.8 ACUTE BRONCHITIS DUE TO OTHER SPECIFIED [...] ML 10/18/2016 RASHMI REINA Other Z79.899 OTHER UPSETTER (CURRENT) DRUG THERAPY 11/08/2016 SOPHIE DISLA APRN R07.9 CHEST PAIN, UNSPECIFIED 11/08/2016 SOPHIE DISLA APRN R51 HEADACHE 11/08/2016 SOPHIE DISLA APRN Z79.899 OTHER UPSETTER (CURRENT) DRUG THERAPY 11/09/2016 DAVE JARVIS DO [...] FRENCH MD I25.10 Athscl heart disease of [place] coronary artery w/o ang pctrs 11/22/2016 RONY [...] FRENCH MD I25.10 Athscl heart disease of [place] coronary artery w/o ang pctrs 12/14/2016 RONY [...] AND GIDDINESS 12/22/2016 SULY SOUZA MD Z79.51 UPSETTER (CURRENT) USE OF INHALED STEROIDS 12/22/2016 SULY SOUZA MD Z86.73 PRSNL HX OF TIA (TIA), 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EFICITS 12/22/2016 SULY SOUZA MD Z88.5 ALLERGY STATUS TO NARCOTIC AGENT STATUS 01/03/2017 HANNAH OCONNELL E78.5 Hyperlipidemia, unspecified 01/03/2017 HANNAH OCONNELL F32.9 Major depressive disorder, single episode, unspecified 01/03/2017 HANNAH OCONNELL I10 Essential (primary) hypertension 01/03/2017 HANNAH OCONNELL I25.10 Atherosclerotic heart disease of [place] coronary artery without angina pectoris 01/03/2017 HANNAH OCONNELL J44.9 Chronic obstructive pulmonary disease, unspecified 01/03/2017 HANNAH OCONNELL K21.9 Gastro-esophageal reflux disease without esophagitis 01/03/2017 HANNAH COONNELL K25.9 Gastric ulcer, unspecified as acute or [...] other diseases of the digestive system 02/01/2017 AHNNAH OCONNELL G89.29 Other chronic pain 02/01/2017 HANNAH OCONNELL M25.551 Pain in right hip 02/01/2017 HANNAH OCONNELL M54.2 Cervicalgia 02/01/2017 HANNAH OCONNELL M54.5 Low back pain 02/05/2017 WEI SMITH MD I10 ESSENTIAL (PRIMARY) HYPERTENSION 02/05/2017 WEI SMITH MD R45.851 SUICIDAL IDEATIONS 02/05/2017 WEI SMITH MD Z79.1 CORRECTION (CURRENT) USE OF NON-STEROIDAL NON-INFLA 02/05/2017 WEI SMITH MD Z79.51 CORRECTION (CURRENT) USE OF INHALED STEROIDS 02/05/2017 WEI SMITH MD Z79.899 OTHER CORRECTION (CURRENT) DRUG THERAPY 02/13/2017 RONY FRENCH MD F17.210 Nicotine dependence, cigarettes, uncomplicated 02/13/2017 RONY FRENCH MD F33.2 Major depressv disorder, recurrent severe w/o psych features 02/13/2017 RONY FRENCH MD G89.29 Other chronic pain 02/13/2017 RONY FRENCH MD I10 Essential (primary) hypertension 08/02/2017 Bryant, Johnny [...] Johnny W G89.29 OTHER CHRONIC PAIN 08/02/2017 Bryant, Johnny W I25.10 ATHSCL HEART DISEASE OF [place] CORONARY ARTERY W/O ANG PCTRS 08/02/2017 Bryant Johnny W I48.91 UNSPECIFIED ATRIAL FIBRILLATION 08/02/2017 Bryant, Johnny W 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 08/02/2017 Bryant, Johnny W J44.9 CHRONIC OBSTRUCTIVE PULMONARY DISEASE, UNSPECIFIED 08/02/2017 BryantClauJohnny W K21.9 GASTRO-ESOPHAGEAL REFLUX DISEASE WITHOUT ESOPHAGITIS 08/02/2017 Bryant Johnny W M54.9 DORSALGIA, UNSPECIFIED 08/02/2017 BryantClauJohnny W N40.0 BENIGN PROSTATIC HYPERPLASIA WITHOUT LOWER URINRY TRACT SYMP 08/02/2017 Bryant Johnny W Z72.0 TOBACCO USE 01/17/2018 SATISH MIRELES PERINATAL BREASTFEEDING ASSISTANT Ot K31.89 OTHER DISEASES OF STOMACH AND DUODENUM 01/17/2018 SATISH MIRELES PERINATAL BREASTFEEDING ASSISTANT Ot K57.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/O PERFORATION OR AB 01/17/2018 SATISH MIRELES APRN Ot K59.00 CONSTIPATION, UNSPECIFIED 01/17/2018 SATISH MIRELES PERINATAL BREASTFEEDING ASSISTANT Ot K31.89 OTHER DISEASES OF STOMACH AND DUODENUM 01/17/2018 SATISH MIRELES APRN Ot K57.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/O PERFORATION OR AB 01/17/2018 SATISH MIRELES APRN Ot K59.00 CONSTIPATION, UNSPECIFIED 02/01/2018 TAISHA CINTRON DO Ot Z01.818 ENCOUNTER FOR OTHER PREPROCEDURAL EXAMIN 02/04/2018 TAISHA CINTRON DO Ot Z01.818 ENCOUNTER FOR OTHER PREPROCEDURAL EXAMIN 02/04/2018 TAISHA CINTRON DO Ot E78.5 HYPERLIPIDEMIA, UNSPECIFIED 02/04/2018 TAISHA CINTRON DO Ot F17.200 NICOTINE DEPENDENCE, UNSPECIFIED, UNCOMP 02/04/2018 TAISHA CINTRON DO Ot F32.9 MAJOR DEPRESSIVE DISORDER, SINGLE EPISOD 02/04/2018 TAISHA CINTRON DO Ot G62.9 POLYNEUROPATHY, UNSPECIFIED 02/04/2018 TAISHA CINTRON DO Ot I10 ESSENTIAL (PRIMARY) HYPERTENSION 02/04/2018 TAISHA CINTRON DO Ot 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 AFFECT 02/04/2018 TAISHA CINTRON DO Ot J44.9 CHRONIC OBSTRUCTIVE PULMONARY DISEASE, U 02/04/2018 DELMAN DO, TAISHA B Ot K20.9 ESOPHAGITIS, UNSPECIFIED 02/04/2018 ABDULAZIZ AGUILA TAISHA B Ot K21.9 GASTRO-ESOPHAGEAL REFLUX DISEASE WITHOUT 02/04/2018 ABDULAZIZ AGUILA, TAISHA B Ot K29.70 GASTRITIS, UNSPECIFIED, WITHOUT BLEEDING 02/04/2018 ABDULAZIZ AGUILA TAISHA B Ot K31.7 POLYP OF STOMACH AND DUODENUM 02/04/2018 ABDULAZIZ AGUILA TAISHA B Ot K44.9 DIAPHRAGMATIC HERNIA WITHOUT OBSTRUCTION 02/04/2018 ABDULAZIZ AGUILA TAISHA B Ot Z79.899 OTHER CORRECTION (CURRENT) DRUG THERAPY 02/08/2018 ABDULAZIZ AGUILA, TAISHA B Ot E78.5 HYPERLIPIDEMIA, UNSPECIFIED 02/08/2018 ABDULAZIZ AGUILA, TAISHA B Ot F17.200 NICOTINE DEPENDENCE, UNSPECIFIED, UNCOMP 02/08/2018 ABDULAZIZ AGUILA TAISHA B Ot F32.9 MAJOR DEPRESSIVE DISORDER, SINGLE EPISOD 02/08/2018 ABDULAZIZ AGUILA TAISHA B Ot G62.9 POLYNEUROPATHY, UNSPECIFIED 02/08/2018 ABDULAZIZ AGUILA TAISHA B Ot I10 ESSENTIAL (PRIMARY) HYPERTENSION 02/08/2018 ABDULAZIZ AGUILA TAISHA B Ot 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 AFFECT 02/08/2018 ABDULAZIZ AGUILA TAISHA B Ot J44.9 CHRONIC OBSTRUCTIVE PULMONARY DISEASE, U 02/08/2018 KEIRA CINTRON DOIC B Ot K20.9 ESOPHAGITIS, UNSPECIFIED 02/08/2018 ABDULAZIZ AGUILA TAISHA B Ot K21.9 GASTRO-ESOPHAGEAL REFLUX DISEASE WITHOUT 02/08/2018 ABDULAZIZ AGUILA, TAISHA B Ot K29.70 GASTRITIS, UNSPECIFIED, WITHOUT BLEEDING 02/08/2018 ABDULAZIZ AGUILA TAISHA B Ot K31.7 POLYP OF STOMACH AND DUODENUM 02/08/2018 ABDULAZIZ AGUILA TAISHA B Ot K44.9 DIAPHRAGMATIC HERNIA WITHOUT OBSTRUCTION 02/08/2018 ABDULAZIZ AGUILA, TAISHA B Ot Z79.899 OTHER CORRECTION (CURRENT) DRUG THERAPY 02/14/2018 SATISH MIRELES APRN Ot K31.89 OTHER DISEASES OF STOMACH AND DUODENUM 02/14/2018 SATISH MIRELES APRN Ot K57.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/O PERFORATION OR AB 02/14/2018 SATISH MIRELES APRN Ot K59.00 CONSTIPATION, UNSPECIFIED 02/17/2018 TAISHA CINTRON DO Ot E78.5 HYPERLIPIDEMIA, UNSPECIFIED 02/17/2018 TAISHA CINTRON DO B Ot F17.200 NICOTINE DEPENDENCE, UNSPECIFIED, UNCOMP 02/17/2018 TAISHA CINTRON DO B Ot F32.9 MAJOR DEPRESSIVE DISORDER, SINGLE EPISOD 02/17/2018 TAISHA CINTRON DO B Ot G62.9 POLYNEUROPATHY, UNSPECIFIED 02/17/2018 KEIRA CINTRON DOIC B Ot I10 ESSENTIAL (PRIMARY) HYPERTENSION 02/17/2018 [...] 02/17/2018 TAISHA CINTRON DO Ot Z79.899 OTHER UPSETTER (CURRENT) DRUG THERAPY 02/18/2018 TAISHA CINTRON DO [...] Ot K21.9 GASTRO-ESOPHAGEAL REFLUX DISEASE WITHOUT 02/22/2018 KEIRA CINTRON DOIC B Ot K57.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/O PERFORATION OR AB 02/22/2018 TAISHA CINTRON DO Ot K63.5 POLYP OF COLON 02/22/2018 TAISHA CINTRON DO Ot K64.8 OTHER HEMORRHOIDS 02/22/2018 TAISHA CINTRON DO Ot Z79.899 OTHER CORRECTION (CURRENT) DRUG THERAPY 03/22/2018 SATISH MIRELES APRN Ot K31.89 OTHER DISEASES OF STOMACH AND DUODENUM 03/22/2018 SATISH MIRELES PERINATAL BREASTFEEDING ASSISTANT Ot K57.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/O PERFORATION OR AB 03/22/2018 SATISH MIRELES APRN Ot K59.00 CONSTIPATION, UNSPECIFIED 03/27/2018 TAISHA CINTRON [...] MD Ot I25.110 ATHSCL HEART DISEASE OF [place] ART W 03/29/2018 EDIN MARSHALL MD [...] MD Ot I25.110 ATHSCL HEART DISEASE OF [place] ART W 03/29/2018 EDIN MARSHALL MD [...] MD Ot I25.110 ATHSCL HEART DISEASE OF [place] ART W 03/29/2018 EDIN MARSHALL MD [...] MD Ot I25.110 ATHSCL HEART DISEASE OF [place] ART W 03/29/2018 EDIN MARSHALL MD [...] MD Ot I25.110 ATHSCL HEART DISEASE OF [place] ART W 03/29/2018 EDIN MARSHALL MD [...] MD Ot I25.110 ATHSCL HEART DISEASE OF [place] ART W 03/30/2018 EDIN MARSHALL MD [...] MD Ot I25.110 ATHSCL HEART DISEASE OF [place] ART W 04/01/2018 EDIN MARSHALL MD Ot I25.119 ATHSCL HEART DISEASE OF [place] ART W 04/01/2018 EDIN MARSHALL MD [...] MD Ot I25.119 ATHSCL HEART DISEASE OF [place] ART W 04/08/2018 EDIN MARSAHLL MD Ot I25.2 OLD MYOCARDIAL INFARCTION 04/08/2018 EDIN MARSHALL MD Ot I48.91 UNSPECIFIED ATRIAL FIBRILLATION 04/08/2018 EDIN MARSHALL MD Ot I73.9 PERIPHERAL VASCULAR DISEASE, UNSPECIFIED 04/08/2018 EDIN MARSHALL MD Ot J44.9 CHRONIC OBSTRUCTIVE [...] MD Ot I25.119 ATHSCL HEART DISEASE OF [place] ART W 04/08/2018 EDIN MARSHALL MD [...] DUODENAL BLEEDING 08/29/2014 93.89 REHABILITATION NEC 09/03/2014 52333 Office/outpatient visit; established patient, level 1 04/27/2015 49744 Office/outpatient visit; established patient, level 4 04/28/2015 50559 Office/outpatient visit; established patient, level 4 05/05/2015 43630 Office/outpatient visit; established patient, level 4 05/12/2015 20212 DRAWING AND HANDLING - VENOUS 01/03/2017 02410 NEW COMPREHENSIVE 01/03/2017 31948 EST EXPANDED PROBLEM FOCUSED 02/01/2017 1J143A3 MEASURE OF CARDIAC SAMPL PRESSURE, L H 03/29/2018 [id number] FLUOROSCOPY OF MULT COR ART USING L OSM 03/29/2018 [id number] FLUOROSCOPY OF LEFT HEART USING LOW OSMO 03/29/2018 [id number] DILATION OF 1 COR ART WITH DRUG-ELUT [...] 93 mg/dL 35-160 VLDL 19 mg/dL 0-42 QUU0679 - 02/22/18 14:30 C DIFFICILE AG + TOXIN A/B. - 02/22/18 14:40 RESULTS NEGATIVE FOR ANTIGEN AND TOXIN A/B [facility] Stool bacteria identification by culture - 02/22/18 14:40 QUANTITY OF GROWTH . [facility] Stool bacteria identification by culture SEE REPORT [...] platelet mean volume measurement 9.4 [foz_us] 7.4-10.4 Complete blood count (CBC) with automated white blood cell (WBC) differential - 07/25/18 09:00 Blood leukocytes automated count (number/volume) 6.4 10*3/uL 4.3-11.0 Blood erythrocytes automated count (number/volume) 4.95 10*6/uL 4.35-5.85 Venous blood hemoglobin measurement (mass/volume) 14.7 g/dL 13.3-17.7 Blood hematocrit (volume fraction) 44 % 40-54 Automated erythrocyte mean corpuscular volume 89 [foz_us] 80-99 Automated erythrocyte mean corpuscular hemoglobin (mass per erythrocyte) 30 pg 25-34 Automated erythrocyte mean corpuscular hemoglobin concentration measurement ( mass/volume) 34 g/dL 32-36 Automated erythrocyte distribution width ratio 15.2 % 10.0-14.5 Automated blood platelet count (count/volume) 213 10*3/uL 130-400 Automated blood platelet mean volume measurement 9.7 [foz_us] 7.4-10.4 Automated blood neutrophils/100 leukocytes 69 % 42-75 Automated blood lymphocytes/100 leukocytes 19 % 12-44 Blood monocytes/100 leukocytes 9 % 0-12 Automated blood eosinophils/100 leukocytes 1 % 0-10 Automated blood basophils/100 leukocytes 1 % 0-10 Blood neutrophils automated count (number/volume) 4.5 10*3 1.8-7.8 Blood lymphocytes automated count (number/volume) 1.2 10*3 1.0-4.0 Blood monocytes automated count (number/volume) 0.6 10*3 0.0-1.0 Automated eosinophil count 0.1 10*3/uL 0.0-0.3 Automated blood basophil count (count/volume) 0.0 10*3/uL 0.0-0.1 Radiology Report from [facility] on 02/14/2013 23:13:00 DIAGNOSTIC IMAGING REPORT [facility] - [address] [address] PHONE #: [phone] FAX #: [phone] ------- Name: CAROLINE LEGGETT Loc: DEON Radiology No: [id number] : 1944 Age: 68 Sex: M Status: DEP ER Unit No: [id number] Phys: Maira Oconnor MD Acct: [id number] Reason For Exam: low back pain - fall Exam Date: 02/14/2013 EXAMS: CPT CODE: [id number] LUMBAR SPINE 2-3 VIEWS 44548 INDICATION: Low back pain. Fall. Findings: Comparison [...] changes. No compression deformities are noted. at 5328 Reported and signed by: DOMINIK KANG MD CC: Maira Ramirez MD; Charles Oconnell MD Technologist: CAROLINE MACIEL Transcribed Date/Time: 02/14/2013 (6786) Cpr Instructor: [email or web address] Printed Date/Time: 2012 (3786) BATCH NO: N/A PAGE 1 Signed Report Radiology Report from [id number] on 05/28/2013 07:57:00 Final ReportADMITTING DIAGNOSIS: fall chest/back painCHEST PORTABLE SINGLE VIEW - 05/27/2013 [facility]P [facility] RESULT: INDICATION: Back pain.EXAMINATION: AP upright portable chest 05/27/2013 10:44 PMFINDINGS: Portable examination of the chest fails to revealevidence of active parenchymal pathology or pleural effusion.The cardiac silhouette is normal.IMPRESSION: Negative chest and specifically looked at the aortaand no evidence of aortic aneurysm or possible dissection.Dictated on workstation # [id number] BY : BRIAN DOWNING M.D., RADIOLOGISTELECTRONICALLY SIGNED BY: BRIAN DOWNING M.D., RADIOLOGISTD May 28 2013 6:12AT SA2: May 28 2013 7: 55AS May 28 2013 7:55A Radiology Report from [facility] on 10/05/2016 10:32:00 DIAGNOSTIC [facility] [address] [place] [address] PHONE #: [phone] FAX #: [phone] ------- Name: CAROLINE LEGGETT SR Loc: E.ED Radiology No: [id number] : 1944 Age: 71 Sex: M Status: REG ER Unit No: [id number] Phys: Yobani Lopez MD Acct: [id number] Reason For Exam: fall Exam Date: 10/05/2016 EXAMS: CPT CODE: [id number] XR HIP 1V RT W/PELVIS 59422 Time exam: September at 0945 hrs. Reason [...] by: ELIJAH BREWSTER MD CC: Technologist: SIDNEY BRYANT; PRUDENCE COLLINS Transcribed Date/Time: 10/05/2016 (0412)Cpr Instructor: OLIVER Printed Date/Time: 10/05/2016 (1751) BATCH NO: N/A PAGE 1 Signed Report Radiology Report [place] [facility] [place] 10/05/2016 12:06:00 DIAGNOSTIC IMAGING REPORT [facility] - [address] [place] [address] PHONE #: [phone] FAX #: [phone] ------- Name: CAROLINE LEGGETT Loc: E.ED Radiology No: [id number] : 1944 Age: 71 Sex: M Status: REG ER Unit No: [id number] Phys: [facility] RodriguezYobani parker MD Acct: [id number] Reason For Exam: fall with injury Exam Date: 10/05/2016 EXAMS: CPT CODE: [id number] CT LUMBAR SPINE W/0 27269 TIME OF EXAM: 10/05/2016 10:04 AM REASON [...] 1 Signed Report (CONTINUED) [facility] [address] [place] [address] PHONE #: [phone] FAX #: [phone] Name: CAROLINE LEGGETT [employer] [employer] Loc: E.ED Radiology No: [id number] : 1945 Age: 71 Sex: M Status: REG ER Unit No: [id number] Phys: Yobani Lopez MD Acct: [id number] Reason For Exam: fall with injury Exam Date: 2016 --- EXAMS: CPT CODE: [id number] CT LUMBAR SPINE W/0 83000 < Continued> CC: Technologist: VASILE VANN; JAVY ESPINOZA; IVY FLORES Transcribed Date/Time: 10/05/2016 (1201)Cpr Instructor : OLIVER Printed Date/Time: 10/05/2016 (3675) BATCH NO: N/A PAGE 2 Signed Report Radiology Report from [facility] on 10/05/2016 12:17:00 DIAGNOSTIC IMAGING REPORT [facility] - [address] [place] [address] PHONE #: [phone] FAX #: [phone] ------- Name: CAROLINE LEGGETT [employer] Loc: E.ED Radiology No: [id number] : 1944 Age: 71 Sex: M Status: REG ER Unit No: [id number] Phys: Yobani Lopez MD Acct: [id number] Reason For Exam: trauma Exam Date: 10/05/2016 EXAMS: CPT CODE: [id number] CT PELVIS WITH CONTRAST 32881 TIME OF EXAM: 10/05/2016 10:04 AM REASON [...] 1 Signed Report (CONTINUED) [facility] [address] [place] [address] PHONE #: [phone] FAX #: [phone] Name: CAROLINE LEGGETT Loc: E.ED Radiology No: [id number] : 1945 Age: 71 Sex: M Status: REG ER Unit No: [id number] Phys: Yobani Lopez MD Acct: [id number] Reason For Exam: trauma Exam Date: 10/05/2016 EXAMS: CPT CODE: [id number] CT PELVIS WITH CONTRAST 39899 <Continued> CC: Technologist: VASILE VANN; JAVY ESPINOZA; IVY FLORES Transcribed Date/Time: 10/05/2016 (1217)Cpr Instructor: OLIVER Printed Date/Time: 10/05/2016 (3864) BATCH NO: N/A PAGE 2 Signed Report Encounters ACCT No. Visit Date/Time Discharge Status Pt. Type Provider Facility Loc./Unit Complaint [id number] 08/03/2017 20:01:02 ACT Unknown [id number] 01/20/2015 19:31:00 01/20/2015 23:59:59 CLS Preadmit [facility] L.ER [id number] 05/06/2014 04:50:00 05/07/2014 17:00:00 DIS Inpatient Andre ROMERO, [facility] W.4CE [id number] 02/14/2013 15:39:00 02/14/2013 18:02:00 DIS Emergency Ashley ROMERO, [facility] W.EDS [id number] 02/13/2013 23:03:00 02/13/2013 23:50:00 DIS Emergency Sabina Vasquez [facility] W.EDW [id number] 06/27/2015 18:41:00 06/27/2015 21:10:00 DIS ER VICTOR MANUEL ROMERO, JARETT ED [id number] 06/16/2015 20:04:00 Document Registration [id number] 08/07/2011 23:15:00 Document Registration [id number] 11/15/2014 19:21:00 11/15/2014 23:59:59 CLS Preadmit [facility] L.ER [id number] 05/12/2015 15:08:03 05/12/2015 15:57:43 DIS Outpatient Oswaldo ROMERO, [facility] [id number] 10/23/2015 20:05:00 10/23/2015 23:59:59 CLS [facility]read[facility] L.ER [id number] 06/18/2015 18:05:00 06/18/2015 23:59:59 CLS [facility]read[facility] L.ER [id number] 07/26/2017 10:45:00 08/02/2017 10:44:00 DIS Inpatient [facility] [id number] 07/26/2017 11:06:07 Document Registration [id number] 05/19/2015 01:35:00 05/19/2015 23:59:59 CLS Preadmit [facility] ED [id number] 04/26/2016 13:15:00 04/26/2016 23:59:59 CLS Outpatient [facility] LIE[facility] E [facility] [id number] 07/28/2015 08:56:03 07/28/2015 08:56:03 Outpatient [id number] 07/28/2015 08:53:36 07/28/2015 08:53:36 Outpatient [id number] 07/28/2015 08:11:59 07/28/2015 08:12:00 Outpatient [id number] 11/13/2014 20:58:00 11/13/2014 23:59:59 CLS Preadmit [facility].ER [id number] 06/10/2013 10:56:00 06/10/2013 12:34:00 DIS Emergency Gilbetr ROMERO, [facility] [id number] 05/28/2013 12:17:00 05/28/2013 23:59:59 CLS Outpatient Minh ROMERO, [facility] FO [id number] 05/27/2013 22:05:00 05/28/2013 00:20:00 DIS Emergency Roxanne AGUILA Reginaldo Zapata [facility] [id number] 04/30/2013 03:26:00 04/30/2013 04:17:00 DIS Emergency Falguni Edmond MD [facility] [id number] 04/28/2013 11:51:00 04/28/2013 13:25:00 DIS Emergency Jay Zuniga MD [facility] on [facility] [id number] 05/28/2013 12:28:00 Document Registration [id number] 06/18/2015 18:05:00 06/18/2015 23:59:59 CLS Preadmit L.ER [id number] 12/25/2015 19:53:00 12/25/2015 23:59:59 CLS [facility] L.ER [id number] 06/23/2013 18:31:00 06/23/2013 23:59:59 CLS Outpatient [id number] 05/30/2013 15:27:00 05/30/2013 23:59:59 CLS Outpatient [id number] 05/16/2013 13:57:00 05/16/2013 23:59:59 CLS Outpatient [id number] 05/14/2013 17:09:00 05/14/2013 23:59:59 CLS Outpatient [id number] 04/18/2013 14:40:00 04/18/2013 23:59:59 CLS Outpatient [id number] 06/29/2015 18:15:00 06/29/2015 20:01:00 DIS SHADY CARBONE MD [id number] 06/18/2015 18:05:00 06/18/2015 22:05:00 DIS VASILE PENNINGTON PA-C [id number] 06/16/2015 20:35:00 06/17/2015 09:40:00 DIS SHADY CARBONE MD [id number] 06/16/2015 20:04:00 Document Registration [id number] 06/16/2015 20:04:00 Document Registration [id number] 12/23/2015 19:39:00 12/23/2015 23:59:59 CLS Preadmit [facility] L.ER [id number] 06/08/2017 23:00:00 06/08/2017 23:59:59 DIS Outpatient FALGUNI HAMILTON [facility] [id number] 03/13/2017 18:24:00 ACT JAY GILLIAM [facility] unknown [id number] 10/02/2015 20:52:00 10/02/2015 20:52:00 CAN Emergency [facility] L.ER [id number] 03/07/2015 22:00:00 03/07/2015 23:59:59 CLS [facility] L.ER [id number] 08/29/2014 10:20:00 08/29/2014 23:59:59 CLS [facility]read[facility] L.ER [id number] 06/27/2015 18:37:00 06/27/2015 23:59:59 CLS Preadmit [facility] ED [id number] 02/19/2016 12:04:00 02/19/2016 14:09:00 DIS Emergency PAIGE ROMERO, [facility] ED INJURY [id number] 10/26/2015 20:09:00 10/26/2015 22:19:00 DIS Emergency NICKOLAS ROMERO, [facility] ED [id number] 07/28/2015 13:23:00 07/28/2015 15:32:00 DIS Emergency MAYRA ROMERO, [facility] ED [id number] 07/01/2015 11:53:00 07/01/2015 13:03:00 DIS Emergency MAYRA ROMERO, [facility] ED [id number] 06/16/2015 13:51:00 06/16/2015 15:09:00 DIS Emergency KEYA JENKINS DO [facility] ED [id number] 05/19/2015 20:26:00 05/19/2015 22:25:00 DIS Emergency NICKOLAS ROMERO, [facility] ED [id number] 04/30/2015 12:02:00 04/30/2015 23:59:59 CLS Outpatient OSWALDO ROMERO, [facility] RAD RETROGRADE AMNESIA - R41.2 [id number] 04/26/2015 12:21:00 04/26/2015 13:25:00 DIS [facility] [id number] 05/08/2014 21:13:00 05/08/2014 23:59:59 CLS Outpatient [facility] [place] [facility] [id number] 10/09/2013 22:42:00 10/09/2013 23:30:00 DIS Emergency DELANEY ROMERO, [facility] ED [id number] 09/01/2013 13:10:00 09/01/2013 14:26:00 DIS Emergency [facility] ED [id number] 07/20/2013 18:25:00 07/20/2013 18:56:00 DIS Emergency JADEN ROMERO, [facility] ED [id number] 07/14/2013 20:33:00 07/14/2013 23:09:00 DIS Emergency [facility] ED [id number] 06/21/2013 21:25:00 06/21/2013 22:13:00 DIS Emergency NICKOLAS RMOERO, [facility] ED [id number] 04/28/2013 21:21:00 04/28/2013 22:23:00 DIS Emergency DELANEY ROMERO, [facility] ED [id number] 04/15/2013 15:15:00 04/15/2013 16:08:00 [facility] [id number] 04/03/2013 03:05:00 04/03/2013 03:56:00 DIS Emergency NICKOLAS ROMERO, [facility] ED [id number] 09/26/2015 21:24:00 Document Registration [id number] 06/11/2014 08:20:00 Document Registration [id number] 06/03/2014 15:28:00 Document Registration [id number] 09/20/2014 20:59:00 09/20/2014 23:59:59 CLS Preadmit [facility].ER [id number] 01/20/2015 19:15:00 01/20/2015 23:59:59 CLS Preadmit [facility] L.ER [id number] 08/03/2017 19:57:55 ACT Document Registration [id number] 12/21/2016 21:04:00 12/21/2016 23:59:59 CLS Preadmit [facility] ED [id number] 08/29/2015 21:21:00 08/29/2015 23:59:59 CLS Preadmit [facility] L.ER [id number] 11/18/2015 22:14:00 11/18/2015 23:59:59 CLS [facility]readmit [facility] L.ER [id number] 06/27/2015 18:37:00 06/27/2015 23:59:59 CLS Preadmit ED [id number] 07/23/2018 12:30:00 07/23/2018 13:51:00 DIS Outpatient TAISHA CINTRON DO [facility] PREOP DIAGNOSTIC LAPAROSCOPY [id number] 03/30/2018 18:10:00 04/01/2018 15:15:00 DIS Inpatient ROLANDO ROMERO, EDIN Tenorio [facility] 4TH ABDOMINAL PAIN [id number] 03/28/2018 12:00:00 03/28/2018 12:00:00 CAN Preadmit TAISHA CINTRON DO [facility] SDC ABDOMINAL PAIN [id number] 03/26/2018 11:15:00 03/26/2018 11:44:00 DIS Outpatient TAISHA CINTRON DO [facility] PREOP ABDOMINAL PAIN [id number] 02/22/2018 11:54:00 02/22/2018 15:50:00 DIS Outpatient TAISHA CINTRON DO [facility] ENDO ABD PAIN [id number] 02/18/2018 05:50:00 02/18/2018 13:00:00 DIS Outpatient TAISHA CINTRON DO [facility] PREOP COLONOSCOPY [id number] 02/04/2018 11:55:00 02/04/2018 15:30:00 DIS Outpatient TAISHA CINTRON DO [facility] ENDO GASTRITIS [id number] 02/01/2018 05:42:00 02/01/2018 11:10:00 DIS Outpatient TAISHA CINTRON DO [facility] PREOP EGD [id number] 01/16/2018 08:08:00 01/16/2018 23:59:59 CLS Outpatient SATISH MIRELES PERINATAL BREASTFEEDING ASSISTANT [facility] RAD ABD PAIN [id number] 07/26/2018 08:00:00 ACT Inpatient TAISHA CINTRON DO [facility] 4TH ABDOMINAL PAIN [id number] 02/01/2017 10:50:00 02/01/2017 23:59:59 CLS Outpatient [facility] [id number] 01/03/2017 10:30:00 01/03/2017 23:59:59 CLS Outpatient [facility] [id number] 02/07/2017 20:21:00 Document Registration [id number] 02/02/2017 15:51:00 Document Registration [id number] 02/01/2017 19:41:00 Document Registration [id number] 23:14:00 Document Registration [id number] 10/05/2016 09:18:00 10/05/2016 13:10:00 DIS Emergency Candelario ROMERO, [facility] E.ED [id number] 02/05/2017 17:20:00 02/05/2017 20:10:00 DIS Outpatient LUIS ROMERO, WEI [facility] 1SOU [id number] 12/21/2016 21:07:00 12/22/2016 01:11:00 DIS Emergency HARLEY ROMERO, [facility] ED [id number] 11/08/2016 20:46:00 11/09/2016 04:56:00 DIS Inpatient DAVE JARVIS DO [facility] 1SOU [id number] 10/09/2016 12:29:00 10/09/2016 14:29:00 DIS Emergency HARLEY ROMERO, [facility] ED [id number] 06/24/2016 21:30:00 06/25/2016 08:35:00 DIS Inpatient NIKITA ROMERO, NOÉ Kailee [facility] 1SOU [id number] 05/26/2016 21:05:00 05/31/2016 13:23:00 DIS Inpatient TRENT SOLITARIO MD, MITZI [facility] 5SUR W [id number] 05/29/2016 14:39:00 05/29/2016 23:59:59 CLS Preadmit DEBORAH ROMERO, STEVEN [facility] [id number] 04/07/2016 10:06:00 04/07/2016 23:59:00 DIS Outpatient KARINA [facility] LAB [id number] 04/07/2016 10:05:00 04/07/2016 23:59:00 DIS Outpatient KARINA [facility] XRAY [id number] 03/31/2016 13:23:00 03/31/2016 23:59:00 DIS Outpatient KARINA [facility] IC [id number] 01/24/2016 20:45:00 01/25/2016 01:56:00 DIS Inpatient SIMONA DAVE AGUILA [facility] 1SOU [id number] 01/21/2016 18:39:00 01/21/2016 20:36:00 DIS Emergency LUIS ROMERO, WEI [facility] ED [id number] 01/20/2016 10:00:00 01/20/2016 23:59:[address] DO [facility] NICL [id number] 12/21/2015 16:48:00 12/21/2015 22:04:00 DIS Emergency SHANTEL ROMERO, BALAJI [facility] ED [id number] 11/19/2015 20:44:00 11/23/2015 16:45:00 DIS Inpatient DEBORAH ROMERO, STEVEN [facility] [id number] 06/27/2015 18:41:00 06/27/2015 21:10:00 DIS Emergency VICTOR MANUEL ROMERO, JARETT [facility] ED [id number] 05/19/2015 01:37:00 05/19/2015 02:21:00 DIS Emergency NIKITA ROMERO, NOÉ Dugan [facility] ED [id number] 12/28/2014 12:04:00 12/28/2014 23:59:00 DIS Outpatient MAGO SARAHI AGUILAA Otf [facility] XRAY [id number] 12/28/2014 13:00:00 12/28/2014 13:00:00 CAN Preadmit MARVIN MERCEDES DO [facility] INFU TH [id number] 09/03/2014 12:43:00 09/08/2014 10:22:00 DIS Inpatient EDDA ROMERO, JASBIR Priest [facility] REHAB [id number] 08/29/2014 14:14:00 09/03/2014 12:18:00 DIS Inpatient RITA ROMERO, SABINA Ferro [facility] 4MED W [id number] 08/29/2014 11:56:00 Document Registration [id number] 07/09/2014 22:32:00 Document Registration [id number] 06/18/2014 09:38:00 Document Registration [id number] 06/11/2014 17:40:00 Document Registration [id number] 05/24/2014 13:19:00 Document Registration [id number] 05/05/2014 22:51:00 Document Registration [id number] 09/01/2013 18:08:00 Document Registration [id number] 07/21/2013 00:26:00 Document Registration [id number] 07/15/2013 14:40:00 Document Registration [id number] 06/19/2012 01:40:00 Document Registration [id number] 05/15/2012 13:52:00 Document Registration [id number] 03/29/2012 09:05:00 Document Registration [id number] 01/18/2012 23:16:00 Document Registration [id number] 12/20/2011 15:24:00 Document Registration [id number] 12/12/2011 00:47:00 Document Registration [id number] 09/02/2011 03:43:00 Document Registration [id number] 08/07/2011 23:15:00 Document Registration [id number] 08/07/2011 00:32:00 Document Registration [id number] 08/04/2011 03:31:00 Document Registration [id number] 04/28/2011 00:17:00 Document Registration [id number] 03/04/2011 02:21:00 Document Registration [id number] 12/08/2010 00:14:00 Document Registration [id number] 11/19/2010 01:03:00 Document Registration [id number] 09/27/2010 19:44:00 Document Registration [id number] 09/05/2010 21:53:00 Document Registration [id number] 08/27/2010 00:38:00 Document Registration [id number] 07/26/2010 21:56:00 Document Registration [id number] 07/17/2010 02:10:00 Document Registration [id number] 06/24/2010 00:46:00 Document Registration [id number] 04/27/2010 19:46:00 Document Registration [id number] 02/08/2010 15:04:00 Document Registration [id number] 02/07/2010 18:55:00 Document Registration [id number] 01/29/2010 19:51:00 Document Registration [id number] 01/11/2010 16:44:00 Document Registration [id number] 11/27/2009 14:35:00 Document Registration [id number] 10/20/2009 09:45:00 Document Registration [id number] 10/15/2009 17:15:00 Document Registration [id number] 09/12/2009 20:52:00 Document Registration [id number] 08/30/2009 19:09:00 Document Registration [id number] 08/22/2009 12:56:00 Document Registration [id number] 06/23/2009 17:08:00 Document Registration [id number] 01/22/2009 18:54:00 Document Registration [id number] 12/15/2008 16:50:00 Document Registration [id number] 09/14/2008 10:51:00 Document Registration [id number] 09/02/2008 21:06:00 Document Registration [id number] 08/28/2008 21:22:00 Document Registration [id number] 07/20/2008 10:04:00 Document Registration [id number] 07/11/2008 19:16:00 Document Registration [id number] 06/30/2008 19:32:00 Document Registration [id number] 06/13/2008 13:53:00 Document Registration [id number] 05/15/2008 20:46:00 Document Registration [id number] 05/12/2008 13:53:00 Document Registration [id number] 03/12/2008 19:30:00 Document Registration [id number] 02/16/2008 00:10:00 Document Registration [id number] 01/27/2008 15:56:00 Document Registration [id number] 01/01/2008 13:50:00 Document Registration [id number] 09/13/2007 17:59:00 Document Registration [id number] 06/30/2007 19:57:00 Document Registration [id number] 05/23/2015 19:57:00 05/23/2015 23:59:59 CLS Preadmit [facility] [id number] 05/19/2014 11:22:05 05/19/2014 23:59:59 CLS Outpatient Shady Burrell [id number] 04/28/2014 14:41:12 04/28/2014 23:59:59 CLS Outpatient Shady Burrell [id number] 01/26/2014 14:31:13 01/26/2014 23:59:59 CLS Outpatient Shady Burrell [id number] 12/23/2013 14:08:54 12/23/2013 23:59:59 CLS Outpatient Brian Mary E [id number] 10/24/2013 15:36:16 10/24/2013 23:59:59 CLS Outpatient Shady Burrell [id number] 05/17/2018 14:24:08 05/17/2018 23:59:59 CLS Outpatient Satish Mireles [id number] 01/07/2018 14:42:12 01/07/2018 23:59:59 CLS Outpatient Satish Mireles [id number] 10/15/2017 08:38:26 10/15/2017 23:59:59 CLS Outpatient Marco Munoz [id number] 08/09/2017 14:31:36 08/09/2017 23:59:59 CLS Outpatient Marco Munoz [id number] 06/26/2017 10:37:35 06/26/2017 23:59:59 CLS Outpatient Marco Munoz [id number] 05/25/2017 16:53:38 05/25/2017 23:59:59 CLS Outpatient Marco Munoz [id number] 02/14/2017 10:22:43 02/14/2017 23:59:59 CLS Outpatient Marco Munoz [id number] 12/21/2015 16:42:00 12/21/2015 23:59:59 CLS Preadmit [facility] ED [id number] 02/07/2017 11:45:00 02/13/2017 11:10:00 DIS Inpatient GILLIAN ROMERO, [facility] [id number] 12/01/2016 03:20:00 12/14/2016 11:10:00 DIS Inpatient GILLIAN ROMERO, [facility] [id number] 11/09/2016 07:50:00 11/22/2016 14:45:00 DIS Inpatient GILLIAN ROMERO, [facility] [id number] 06/25/2016 11:55:00 07/06/2016 15:30:00 DIS Inpatient GILLIAN ROMERO, [facility] [id number] 02/13/2015 22:05:00 02/13/2015 23:59:59 CLS Preadmit [facility] L.ER [id number] 08/28/2015 21:00:00 08/28/2015 23:59:59 CLS Preadmit [facility] L.ER [id number] 05/31/2016 13:50:00 06/14/2016 12:30:00 DIS Inpatient STEVEN ROMERO, [facility] BOZENA [id number] 06/01/2016 15:10:00 06/03/2016 13:20:00 DIS Inpatient JANI ROMERO, [facility] ICU [id number] 06/24/2016 20:10:00 06/24/2016 23:59:59 CLS Preadmit [facility] ED [id number] 03/05/2015 23:03:00 03/05/2015 23:59:59 CLS Preadmit [facility] L.ER [id number] 07/26/2017 10:45:00 Document Registration [id number] 11/08/2016 17:33:00 11/08/2016 23:59:59 CLS Preadmit [facility] L.ER [id number] 01/21/2016 18:37:00 01/21/2016 23:59:59 CLS Preadmit [facility] ED [id number] 11/30/2016 18:55:00 12/01/2016 00:30:00 DIS Emergency VASILE BECKWITH PA-C [facility] L.ER [id number] 11/08/2016 17:33:00 11/08/2016 18:50:00 DIS Emergency ALEJANDROVERONICASOPHIE APRN [facility] L.ER [id number] 11/07/2016 18:02:00 11/07/2016 18:02:00 CAN Preadmit CRISTIAN COCHRAN [facility] L.ER [id number] 10/17/2016 22:21:00 10/18/2016 00:14:00 DIS Emergency RASHMI REINA [facility] L.ER [id number] 08/22/2016 10:31:00 08/22/2016 23:59:00 DIS Outpatient [facility] L.NPLAB [id number] 08/18/2016 08:29:00 08/18/2016 23:59:00 DIS CLI [facility] L.LAB [id number] 08/18/2016 08:28:00 08/18/2016 08:28:00 CAN Preadmit AMAYA AGUILA [facility] L.NC [id number] 06/12/2016 07:00:00 06/12/2016 23:59:59 CLS Preadmit [facility] L.LAB [id number] 05/26/2016 19:40:00 05/26/2016 23:59:00 DIS ER MANUELA WILBURN APRN [facility] L.ER [id number] 02/04/2016 08:22:00 02/04/2016 23:59:00 DIS Outpatient [facility] L. [id number] 01/19/2016 07:47:00 01/19/2016 23:59:00 DIS Outpatient [facility] L.LAB [id number] 01/06/2016 09:50:00 01/06/2016 23:59:00 DIS Outpatient JOSE CARLSON Alfonso [facility] L. [id number] 12/27/2015 07:53:00 12/27/2015 23:59:00 DIS Outpatient [facility] L.LAB [id number] 12/25/2015 19:53:00 12/25/2015 21:35:00 DIS Emergency KULWANT GARCIA [facility] L.ER [id number] 12/23/2015 19:39:00 12/23/2015 22:10:00 DIS Emergency VASILE BECKWITH PA-C [facility] L.ER [id number] 11/18/2015 22:15:00 11/19/2015 17:02:00 DIS Emergency JOSE ROMERO, JOEY Bond [facility] L.ER [id number] 10/23/2015 20:12:00 10/23/2015 21:43:00 DIS Emergency MANUELA WILBURN PERINATAL BREASTFEEDING ASSISTANT [facility] L.ER [id number] 10/02/2015 20:52:00 10/02/2015 21:20:00 DIS Emergency FRANCESCA ROMERO, DANI Tenorio [facility] L.ER [id number] 08/29/2015 21:22:00 08/30/2015 04:55:00 DIS Emergency VASILE BECKWITH PA-C [facility] L.ER [id number] 08/28/2015 21:00:00 08/28/2015 21:50:00 DIS Emergency MANUELA WILBURN APRN [facility] L.ER [id number] 08/27/2015 18:47:00 08/27/2015 20:40:00 DIS Emergency VASILE BECKWITH PA-C [facility] L.ER [id number] 06/29/2015 18:15:00 06/29/2015 20:01:00 DIS Emergency MERLY ROMERO, [facility] L.ER [id number] 06/18/2015 18:05:00 06/18/2015 22:05:00 DIS Emergency VASILE BECKWITHKosta [facility] L.ER [id number] 06/16/2015 20:35:00 06/17/2015 09:40:00 DIS Inpatient MERLY ROMERO, [facility] [id number] 05/23/2015 19:57:00 05/23/2015 20:35:00 DIS Emergency REGINALDO THAYER [facility] L.ER [id number] 05/11/2015 21:48:00 05/11/2015 23:52:00 DIS Emergency OSWALDO ROMERO, [facility].ER [id number] 04/28/2015 08:05:00 04/28/2015 23:59:00 DIS Outpatient MERLY ROMERO, [facility] LLAB [id number] 04/21/2015 09:41:00 04/21/2015 23:59:00 [id number] 04/19/2015 19:53:00 04/19/2015 20:40:00 DIS [id number] 03/07/2015 22:00:00 03/07/2015 23:25:00 DIS Emergency VASILE BECKWITH PA-C [facility] L.ER [id number] 03/05/2015 23:03:00 03/06/2015 00:21:00 DIS Emergency BECKWITH, VASILE L [facility] L. [id number] 02/27/2015 17:47:00 02/27/2015 23:59:00 DIS Outpatient [facility] L. [id number] 02/13/2015 22:05:00 02/14/2015 00:42:00 DIS Emergency [facility] L. [id number] 02/03/2015 09:57:00 02/03/2015 23:59:00 DIS Outpatient MERLY ROMERO, SHADY [facility] [id number] 01/20/2015 19:33:00 01/20/2015 20:40:00 [facility] [id number] 01/14/2015 12:00:00 01/14/2015 23:59:00 [facility] [id number] 12/31/2014 09:40:00 12/31/2014 23:59:00 DIS CLI[facility] [id number] 12/23/2014 09:30:00 12/23/2014 09:30:00 CAN Preadmit [facility] L.NM [id number] 12/21/2014 10:26:00 12/21/2014 23:59:00 DIS [id number] 12/11/2014 14:20:00 12/11/2014 23:59:00 DIS CLI.[facility] [id number] 11/26/2014 11:20:00 11/26/2014 12:20:00 [facility] [id number] 11/16/2014 10:53:00 11/16/2014 23:59:00 DIS Outpatient [facility] [id number] 11/15/2014 19:26:00 11/15/2014 20:56:00 DIS Emergency MANUELA WILBURN [facility] L.ER [id number] 11/13/2014 20:58:00 11/13/2014 22:29:00 DIS Emergency SOPHIE DISLA [facility] L.ER [id number] 10/19/2014 10:42:00 10/19/2014 23:59:00 [facility] [id number] 10/16/2014 14:12:00 10/16/2014 23:59:00 [facility] [id number] 09/21/2014 10:31:00 09/21/2014 23:59:00 DIS CLI.[facility] [id number] 09/20/2014 21:10:00 09/20/2014 23:17:00 DIS Emergency VASILE BECKWITH PA-C [facility] L.ER [id number] 09/01/2014 13:30:00 09/01/2014 13:30:00 CAN Outpatient JACK ROMERO, JARETT Bond [facility] L. [id number] 08/29/2014 10:20:00 08/29/2014 13:00:00 DIS Emergency MANUELA WILBURN [facility] L.ER [id number] 05/26/2016 20:36:00 Document Registration [id number] 05/26/2016 20:36:00 Document Registration [id number] 05/26/2016 20:36:00 Document Registration [id number] 05/26/2016 20:36:00 Document Registration [id number] 05/26/2016 20:36:00 Document Registration [id number] 05/26/2016 20:36:00 Document Registration [id number] 06/16/2015 20:04:00 Document Registration [id number] 08/10/2014 13:51:00 Document Registration [id number] 07/21/2014 15:52:00 Document Registration [id number] 07/03/2014 10:57:00 Document Registration [id number] 06/01/2014 13:00:00 Document Registration [id number] 12/25/2013 20:06:00 Document Registration [id number] 10/09/2013 23:52:00 Document Registration [id number] 08/20/2013 21:40:00 Document Registration [id number] 08/19/2013 18:45:00 Document Registration [id number] 07/20/2013 21:32:00 Document Registration [id number] 07/15/2013 21:25:00 Document Registration [id number] 06/23/2013 21:57:00 Document Registration [id number] 04/25/2016 09:27:00 04/25/2016 09:27:00 DIS Outpatient [facility] [id number] 02/29/2016 14:55:00 02/29/2016 14:55:00 DIS Outpatient [facility] [id number] 11/05/2015 14:42:00 11/05/2015 14:42:00 DIS Outpatient [facility] [id number] 05/24/2015 14:12:00 05/24/2015 14:12:00 DIS Outpatient [facility] [id number] 07/25/2013 12:44:00 08/01/2013 09:48:00 DIS Inpatient [facility]
--- NOTE | 2018-07-26 11:44 | Progress Note ---
Subjective Time Seen by a Provider: 09:22 Subjective/Events-last exam Pt seen and examined, as soon as I walked in the room he started shaking and crying; stating he was in severe pain and he needed Dilaudid. +Flatus, no BM, states he is urinating and tolerating some clears Review of Systems Pulmonary: No Dyspnea, No Cough Cardiovascular: No: Chest Pain, Palpitations Gastrointestinal: Abdominal Pain Objective Exam Vital Signs Date Time Temp Pulse Resp B/P (MAP) Pulse Ox O2 Delivery O2 Flow Rate FiO2 07/26/18 08:00 96.0 108 20 191/88 (122) 95 Room Air 07/26/18 04:00 97.9 80 22 174/81 (112) 92 Nasal Cannula 2.00 07/26/18 00:25 97.5 80 22 185/84 (117) 95 Nasal Cannula 2.00 07/25/18 23:50 Nasal Cannula 2.00 07/25/18 20:00 92 Nasal Cannula 2.00 07/25/18 19:44 97.1 82 22 180/78 (112) 92 Room Air 07/25/18 15:10 98.0 68 18 153/73 (99) Nasal Cannula 2.00 07/25/18 15:10 97.4 18 96 Nasal Cannula 2 07/25/18 15:00 20 94 Nasal Cannula 2 07/25/18 14:50 18 94 Nasal Cannula 2 07/25/18 14:40 18 95 Room Air 07/25/18 14:30 18 98 OxyMask 6 07/25/18 14:20 18 96 OxyMask 6 07/25/18 14:10 18 96 OxyMask 6 07/25/18 14:00 18 95 OxyMask 6 07/25/18 13:50 97.1 16 95 OxyMask 6 I & O 07/26/18 07:00 Intake Total 3850 ml Output Total 1325 ml Balance 2525 ml Capillary Refill : General Appearance: Chronically ill, Mild Distress Respiratory: Chest Non Tender, Lungs Clear, Normal Breath Sounds, No Accessory Muscle Use, No Respiratory Distress Cardiovascular: Regular Rate, Rhythm, No Murmur Gastrointestinal: distended (mildly), tenderness (diffusely with light palpation), other (incision imani intact with mild drainage from midline on dressing) Results Lab Microbiology 07/25/18 MRSA Screen - Final, Complete MRSA not isolated Assessment/Plan Assessment/Plan Assessment/Plan S/P Ex Lap for Enterotomy, ISAAC, Abd pain Plan is to try and get pt some pain control, encourage ambulation and IS use. Pt must move around, unfortunately he lost IV access and does not have good veins. Will have to try Oral if nurse unable to get IV. TAISHA CINTRON DO Jul 26, 2018 11:44
[2018-07-26 12:00] VITALS: BP 191/88
--- NOTE | 2018-07-26 15:37 | NUR ---
Responded with staff to call light. Pt was observed in his wheel chair. Staff assisted pt back to his bed. Pt was reportedly agitated and throwing objects at staff this morning. He is also reported by the RN to repeatedly request pain medication and call out to staff when he hears them in the hallway. RN states pt has abdominal pain and is taking prescribed medications, and is anticipated to remain admitted until pain is managed.
[2018-07-26 16:50] VITALS: BP 154/90
[2018-07-26 20:40] VITALS: BP 151/94
[2018-07-27] VITALS (7 sets, daily range): BP systolic 127–163; BP diastolic 76–98
--- NOTE | 2018-07-27 03:21 | OPERATIVE REPORT ---
DATE OF SERVICE: PREOPERATIVE DIAGNOSIS: Abdominal pain, history of adhesions. POSTOPERATIVE DIAGNOSIS: Abdominal pain, adhesions, enterotomy. PROCEDURES: 1. Diagnostic laparoscopy. 2. Lysis of adhesions. 3. Exploratory laparotomy with repair of enterotomy. SURGEON: Taisha Sheikh DO. SALES MARKET LEADER: Reji Landin DO. ANESTHESIA: General endotracheal tube. SPECIMENS: None. BLOOD LOSS: Scant. FLUIDS: Per anesthesia. POSTOPERATIVE CONDITION: Stable. INDICATION FOR PROCEDURE: The patient is a 73-year-old male who has severe abdominal pain, has had a full workup, EGD colonoscopy, CAT scan, nothing found. The patient is convinced that it is his adhesions and wanted to get this looked at. I agreed to this with the patient, but I did explain to him that this may not solve any of his problems. He may have adhesions, but taking them down may not change anything and it could cause further problems. FINDINGS: The patient had multiple adhesions stuck all at the abdominal wall. In fact, it looked like some of the previous midline suture was in some of the intestines and whether it had grown into it or had been grown through it and during the procedure, unfortunately an enterotomy was created. No other obvious pathology seen. PROCEDURE NOTE: After informed consent was obtained, the patient was brought to the operating room, placed on the table in supine position. He was sterilely prepped and draped in normal fashion. Local lidocaine was used to infiltrate the skin in left upper quadrant, made incision with #11 blade, carried down through the skin into subcutaneous tissue and deepened down to subcutaneous tissue with Bovie electrocautery down to the fascia. Fascia was incised with Bovie electrocautery, bluntly spread the muscle, went to the posterior fascia into the abdomen, placed 11 mm trocar port under direct visualization, created pneumoperitoneum. Upon entry, noted multiple adhesions in the midline, pictures were taken. Small intestine was plastered right into the peritoneal wall, started carefully taking this down with some blunt dissection gently as well as with sharp dissection with scissors, taking these adhesions down took about an hour, starting to take these down, going to the midline, found the suture from midline, looked like it was almost going through the small intestine and when taken it off, had a small serosal tear. We sutured this with 3-0 Vicryl suture laparoscopically, continued taking down the adhesions coming across the top and across the top, it appeared the colon was adhesed across the top, tried to get through here, coming across the LigaSure sharp dissection as well as some blunt dissection. As we were coming across, grasped the piece of what looked like adhesive tissue, used the LigaSure, unfortunately made a small enterotomy. At this point, then elected to open the abdomen, made a midline incision, carried down through the skin into subcutaneous tissue. We had put two more ports, 5 mm port in the left abdomen, left upper quadrant, left lower quadrant to take down the adhesions. So this time, went through the midline. Once in the middle, then used Ingris's and carefully took the adhesions down off the abdominal wall with Metzenbaum scissors, freeing up this portion of colon. It was only a small 1 cm enterotomy and elected to close this with a 3-0 Vicryl pop-off. Five interrupted sutures were used. Checked the serosal tear that looked good. There was one other small serosal tear. This was also closed with 3-0 Vicryl popoff. There had been no spillage of fecal contents at all. No liquid, no solid spillage. After everything was closed, at this point then copiously irrigated the abdomen with two liters of warm normal saline, suctioned this out. Again, no fecal content seen. Minimal bleeding at this time and then elected to close the incision, closed with #1 double stranded PDS suture running from the superior portion to the inferior portion tying to itself, elected not to run the small intestine as there were too many adhesions and I did not feel like this would help and only cause more problems and increased risk of enterotomy, created pneumoperitoneum again to look, the midline incision looked great, the intestines looks good. No other obvious pathology at this point, then removed all ports under direct visualization, allowed pneumoperitoneum to escape, closed the left upper quadrant incision, closed the fascia with 0 Vicryl [id number] suture. I had previously closed the peritoneum in this area with 3-0 Vicryl suture, then closed all the incisions with imani. Area was cleaned and dried, dressing was placed and the patient transferred to recovery room in stable condition. Sponge, instrument and needle counts correct at the end of the case. Dr. Landin assisted in this case helping to make incisions, close incisions, identify anatomy and hold anatomy out of the way. Job ID: [id number] DocumentID: [id number] Dictated Date: 07/26/2018 12:39:52 Assigner Date: 07/27/2018 00:31:13 Dictated By: TAISHA SHEIKH DO
[2018-07-27] MEDS ORDERED: meTOproloL SUCCINATE 50 MG (TOPROL XL) TAB PO NR (09:45)
[2018-07-27] MEDS: RT-ALBUTEROL/IPRATROPIUM 3 ML (DUONEB) VIAL INH SCH ×4 (10:07→22:49)
--- NOTE | 2018-07-27 10:16 | Diagnostic Imaging Report ---
INDICATION: Weakness, wheezing. TECHNIQUE: 2 views of the chest. COMPARISON: 06/16/2015. FINDINGS: There is mild elevation of the left hemidiaphragm with left basilar airspace opacities. Lung volumes are otherwise large. There is stable size of the cardiac silhouette. There is no significant pleural effusion. There is biapical pleural scarring and emphysematous changes. There is mild soft tissue air along the right chest wall. Given the presence of air, there is a questionable trace right apical pneumothorax measuring 2 mm. There is no mediastinal shift. No acute osseous abnormality is seen. IMPRESSION: 1. Mild soft tissue air along the right upper chest wall. Given these findings, there appears to be a trace right apical pneumothorax measuring 2 mm. 2. Large lung volumes with emphysematous changes and scarring. 3. Left basilar airspace opacities. Volume loss is suggestive of atelectasis/scarring although underlying infiltrate is not excluded. Message left with patient's nurse ([phone]) at 10:15 a.m. 07/27/2018/cb Dictated by: Dictated on workstation # [id number]
[2018-07-27] MEDS ORDERED: RT-ALBUTEROL/IPRATROPIUM 3 ML (DUONEB) VIAL INH PRN (12:00)
--- NOTE | 2018-07-27 14:25 | Progress Note ---
Subjective Date Seen by a Provider: Jul 27, 2018 Time Seen by a Provider: 10:00 Subjective/Events-last exam Patient still with pain. Maybe a little better controlled. Having some cough. not using IS much. Denies n/v fevers sweats chills. Objective Exam Vital Signs Date Time Temp Pulse Resp B/P (MAP) Pulse Ox O2 Delivery O2 Flow Rate FiO2 07/27/18 12:02 98.4 109 20 127/76 (93) 93 Room Air 07/27/18 10:08 92 Nasal Cannula 2.00 07/27/18 09:22 116 93 21 07/27/18 07:44 Room Air 07/27/18 07:28 98.6 116 20 152/86 (108) 93 Room Air 07/27/18 03:30 97.8 120 20 154/89 (110) 94 Room Air 07/27/18 00:23 97.7 112 20 157/98 (117) 94 Room Air 07/26/18 20:40 97.4 116 22 151/94 (113) 92 Room Air 07/26/18 20:00 93 Room Air 07/26/18 19:08 Nasal Cannula 2.00 07/26/18 16:50 96.5 62 22 154/90 (111) 93 Room Air I & O 07/27/18 07:00 Intake Total 1800 ml Output Total 600 ml Balance 1200 ml Capillary Refill : General Appearance: No Apparent Distress (sitting up in bed), Chronically ill HEENT: PERRL/EOMI Neck: Normal Inspection, Non Tender Respiratory: Chest Non Tender, No Accessory Muscle Use, No Respiratory Distress (slightly wet sounding) Cardiovascular: No Murmur, Tachycardia Gastrointestinal: distended (mildly), tenderness (primarily incisional), other (incision imani intact with mild drainage from midline on dressing) Neurologic/Psychiatric: Alert, Oriented x3, No Motor/Sensory Deficits, Normal Mood/Affect, rehabilitation program coordinator II-XII Norm as Tested Skin: Normal Color, Warm/Dry Lymphatic: No Adenopathy Results Lab Microbiology 07/25/18 MRSA Screen - Final, Complete MRSA not isolated Assessment/Plan Assessment/Plan Assessment/Plan S/P Ex Lap for Enterotomy, ISAAC, Abd pain continue with pain control discussed need for using IS Will get chest x ray to further evaluate. Mat protocol MITRA FRANCIS DO Jul 27, 2018 14:25
--- NOTE | 2018-07-27 15:08 | Diagnostic Imaging Report ---
PATIENT HISTORY: Pneumothorax. TECHNIQUE: Two views of the chest. COMPARISON: 9:35 a.m. on the same day. FINDINGS: Redemonstrated is the soft tissue air along the right chest wall, which appears unchanged. The previously seen trace right apical pneumothorax is no longer evident. No new consolidation is seen. There is elevation of the left hemidiaphragm with unchanged left basilar opacities. IMPRESSION: 1. The previously seen trace right apical pneumothorax is no longer evident. There is unchanged soft tissue air along the right chest wall. 2. Unchanged left basilar airspace opacities and elevation of left hemidiaphragm. Dictated by: Dictated on workstation # [id number]
--- NOTE | 2018-07-27 21:40 | NUR ---
BORE MILL OPERATOR TRIED X4 TIMES TO STARE IV ON PT WITHOUT SUCCESS. DR FRANCIS AGREED TO NOT STARE IV FLUID FOR THE NIGHT. WILL CONTINUO TO MONITOR
[2018-07-28] VITALS (25 sets, daily range): BP systolic 72–159; BP diastolic 45–131
[2018-07-28] MEDS: RT-ALBUTEROL/IPRATROPIUM 3 ML (DUONEB) VIAL INH SCH ×5 (02:06→21:21)
[2018-07-28 04:19] LABS: HEMOGLOBIN 14.9 G/DL (13.3-17.7); MEAN PLATELET VOLUME 10.7 FL (7.4-10.4); RED CELL DISTRIBUTION WIDTH 15.2 % (10.0-14.5); WHITE BLOOD COUNT 12.1 10^3/uL (4.3-11.0)
[2018-07-28 04:35] LABS: BUN/CREATININE RATIO 27; CALCIUM 9.5 MG/DL (8.5-10.1); CARBON DIOXIDE 19 MMOL/L (21-32); CHLORIDE 105 MMOL/L (98-107); CREATININE SERUM 0.75 MG/DL (0.60-1.30); GFR ESTIMATED > 60; GLUCOSE 157 MG/DL (70-105); MAGNESIUM 1.7 MG/DL (1.8-2.4); POTASSIUM 3.1 MMOL/L (3.6-5.0); SODIUM 137 MMOL/L (135-145)
[2018-07-28] MEDS: meTOproloL SUCCINATE 50 MG (TOPROL XL) TAB PO SCH (08:30)
[2018-07-28] MEDS: NS IV 1000 ML 1,000 ML IV SCH ×3 (08:36→14:35)
[2018-07-28] MEDS ORDERED: KCL 20 MEQ TAB (K-DUR) PO NR (08:43)
--- NOTE | 2018-07-28 08:47 | Diagnostic Imaging Report ---
INDICATION: Shortness of breath. COMPARISON is made with prior examination of 07/27/2018. FINDINGS: There is cardiomegaly. Left basilar atelectasis and/or pneumonitis. The mediastinum is unremarkable. There is no pneumothorax. IMPRESSION: 1. Left basilar atelectasis and/or pneumonitis. 2. Cardiomegaly. Dictated by: Dictated on workstation # [id number]
[2018-07-28] MEDS ORDERED: morphine INJ 4 MG/ML 1 ML (VIAL/SYRINGE) ONE ×2 (10:11→10:24)
[2018-07-28] MEDS ORDERED: BUP/EPI 0.5% 1:200,000 (SENSORCAINE) 30 ML VIAL ONE (10:44)
[2018-07-28] MEDS ORDERED: LIDOCAINE 1% INJ 20 ML 20 ML VIAL ONE (10:44)
--- NOTE | 2018-07-28 10:52 | NUR ---
this morning was reported by night nurse patient was hard stick and was unable to get iv, as i was assessing the patient i noted the abd more distended, had another nurse assess which agreed looked distended. patient did not eat anything yesterday nor is he attempting to eat anything today, notified Dr. Landin requested KUB and iv to the leg , agreed to iv to the leg refused KUB, iv started to the right foot with ns running at 100ml/hr, Dr. Landin stated "patient needs to ambulate he is having gas pain from surgery", ambulated patient to and from bathroom, patient noted to have increased pain,sob, got diaphoretic FSBS taken 200, attempted to call Dr. Landin again to notify him patient getting worse, answered phone whispered will call me back, during this time patient increased getting worse, supervisor fabrication was notified, attempted to call Dr. Landin and went straight to voice message, rt notified attempted to administer breathing treatment with no success,patient noted to be getting worse, supervisor fabrication and nurses on the floor came in to assist, attempted to call Dr. Landin again by this time he answered gave me orders to consult hospitalist and Dr. Fairbanks, attempted to call Tiki no success, Dr. Stinson in house came to assess the patient, gave orders for morphine 1mg now, and to have x-ray do chest x-ray and KUB stat, during this time Dr. Landin showed up - both physicians agreed to transfer patient to the ICU unit, patient was transfered to icu 11 report given to Alee YUSUF
[2018-07-28] MEDS ORDERED: HYDROmorphone 2 MG/ML VIAL (DILAUDID) IV ONE ×3 (11:00→13:15)
[2018-07-28] MEDS ORDERED: HYDROmorphone 2 MG/ML VIAL (DILAUDID) ONE (11:10)
--- NOTE | 2018-07-28 11:11 | Progress Note ---
Subjective Date Seen by a Provider: Jul 28, 2018 Time Seen by a Provider: 11:06 Subjective/Events-last exam Patient having severe abdominal pain. Hypertensive and decreased o2 saturation. Requiring increased supplemental oxygen. Stating he's in so much pain he wants to kill himself. Pain is all over his abdomen. WBC up to 12. Chest x ray this morning having slightly increased free intraabdominal air. Objective Exam Vital Signs Date Time Temp Pulse Resp B/P (MAP) Pulse Ox O2 Delivery O2 Flow Rate FiO2 07/28/18 10:13 155 07/28/18 08:00 Nasal Cannula 2.00 07/28/18 07:50 98.3 110 15 150/80 (103) 91 Room Air 07/28/18 06:41 94 Nasal Cannula 2.00 07/28/18 04:14 97.8 105 14 156/82 (106) 91 Room Air 07/28/18 02:06 94 Nasal Cannula 2.00 07/28/18 00:25 98.2 98 20 157/76 (103) 91 Room Air 07/27/18 22:49 90 Room Air 07/27/18 20:00 Room Air 07/27/18 20:00 98.0 78 20 145/80 (101) 93 Room Air 07/27/18 18:41 93 Room Air 07/27/18 16:00 98.4 112 22 163/80 (107) 94 Room Air 07/27/18 14:29 91 Nasal Cannula 2.00 07/27/18 12:02 98.4 109 20 127/76 (93) 93 Room Air I & O 07/28/18 07:00 Intake Total 900 ml Output Total 275 ml Balance 625 ml Capillary Refill : General Appearance: Chronically ill, Severe Distress HEENT: PERRL/EOMI Neck: Normal Inspection, Non Tender Respiratory: Chest Non Tender, No Accessory Muscle Use, No Respiratory Distress (slightly wet sounding) Cardiovascular: No Murmur, Tachycardia Gastrointestinal: distended, tenderness (diffusely peritoneal on exam) Neurologic/Psychiatric: Alert, Oriented x3, No Motor/Sensory Deficits, Normal Mood/Affect, tipple tender II-XII Norm as Tested Skin: Warm/Dry, Mottled Lymphatic: No Adenopathy Results Lab Laboratory Tests 07/28/18 03:50: White Blood Count 12.1H, Red Blood Count 5.03, Hemoglobin 14.9, Hematocrit 43, Mean Corpuscular Volume 85, Mean Corpuscular Hemoglobin 30, Mean Corpuscular Hemoglobin Concent 35, Red Cell Distribution Width 15.2H, Platelet Count 202, Mean Platelet Volume 10.7H, Sodium Level 137, Potassium Level 3.1L, Chloride Level 105, Carbon Dioxide Level 19L, Anion Gap 13, Blood Urea Nitrogen 20H, Creatinine 0.75, Estimat Glomerular Filtration Rate > 60, BUN/Creatinine Ratio 27, Glucose Level 157H, Calcium Level 9.5, Magnesium Level 1.7L 07/28/18 09:49: Glucometer 200H Microbiology 07/25/18 MRSA Screen - Final, Complete MRSA not isolated Assessment/Plan Assessment/Plan Assessment/Plan S/P Ex Lap for Enterotomy, ISAAC, Abd pain Patient having severe abdominal pain. Has on x ray slightly increased free air and is peritoneal. Since patient is peritoneal we discussed risks and benefits of exploratory laparotomy all other indicated procedures which he wishes to proceed with. Patient understands that he may be left on the ventilator postoperatively. Central line placed in ICU u/s guided Pain control. MITRA FRANCIS DO Jul 28, 2018 11:11
--- NOTE | 2018-07-28 11:19 | Diagnostic Imaging Report ---
EXAM: CHEST 1 VIEW, AP/PA ONLY INDICATION: Central line placement. COMPARISON: Chest radiograph 07/28/2018. FINDINGS: Right IJ CVC tip mid SVC. No pneumothorax. Elevation of the left hemidiaphragm and atelectasis in left lung base is stable. No pleural effusion. Normal heart size and central pulmonary vascularity. Small amount of subcutaneous emphysema overlying the right chest wall superiorly. IMPRESSION: 1. New right IJ CVC tip mid SVC. 2. Small amount of subcutaneous emphysema overlying the right chest wall is again seen. No pneumothorax is identified. 3. Persistent elevation of the left hemidiaphragm and consolidation in the left lung base. Dictated by: Dictated on workstation # [id number]
--- NOTE | 2018-07-28 11:21 | Diagnostic Imaging Report ---
EXAM: ABDOMEN/KUB 1VIEW INDICATION: Abdominal pain. COMPARISON: CT abdomen and pelvis with IV contrast 01/16/2018. FINDINGS: Surgical clips in the right upper quadrant. No free intraperitoneal air. Anterior skin imani. Diffusely distended small bowel and colon. No acute osseous findings. No suspicious radiopaque foreign bodies. IMPRESSION: 1. Diffusely distended small bowel and colon. 2. Surgical clips RUQ. Anterior skin imani. Dictated by: Dictated on workstation # [id number]
[2018-07-28] MEDS ORDERED: ETOMIDATE IV SOLN 20 MG/10 ML VIAL ONE (11:24)
[2018-07-28] MEDS ORDERED: LIDOCAINE PF 2% 5 ML (XYLOCAINE) VIAL ONE (11:24)
[2018-07-28] MEDS ORDERED: ISOFLURANE (FORANE) 15 ML/15 MIN INHALATION ONE ×6 (11:24→12:35)
[2018-07-28] MEDS ORDERED: ROCURONIUM 10 MG/ML 5 ML SYRINGE IV ONE (11:24)
[2018-07-28] MEDS ORDERED: SUCCINYLCHOLINE INJ 100 MG/5 ML SYR ONE (11:24)
--- NOTE | 2018-07-28 11:25 | NUR ---
PT LEFT FLOOR VIA BED W/ OR STAFF.
[2018-07-28] MEDS ORDERED: MIDAZOLAM 2 MG/2 ML (VERSED) VIAL ONE (11:26)
[2018-07-28] MEDS ORDERED: metroNIDAZOLE 500MG/100ML IVPB 100 ML ONE (11:50)
[2018-07-28] MEDS ORDERED: PHENYLEPHRINE 100 MCG/ML 10 ML (ANESTHESIA) SYR ONE (11:58)
[2018-07-28] MEDS ORDERED: PHENYLEPHRINE INJ 10 MG/ML (FOR DRIP KITS ONLY) ONE ×4 (11:58→19:21)
[2018-07-28] MEDS ORDERED: ceFAZolin INJECTION 2,000 MG ONE (11:59)
--- NOTE | 2018-07-28 12:10 | Consultation-Hospitalist ---
HPI History of Present Illness: HPI/Chief Complaint Called to see patient in severe distress secondary to abdominal pain. The patient was diffusely mottled and holding his abdomen in severe pain. Abdomen is extremely tight and distended with rebound. X-ray from this morning showed diffuse air possible free air. His oxygen saturations were down to 90 percent on 5 L with diffuse rhonchi. Distal toes were dark blue and cold. Previous films show no hx aneurysm. exam is most c/w with perforated viscus Source: patient, RN/MD Exam Limitations: clinical condition Date Seen 07/28/18 Attending Physician Munir Sheikh DO PCP No,Local Physician Referring Physician Date of Admission Jul 26, 2018 at 08:00 Home Medications & Allergies Home Medications Reviewed patient Home Medication Reconciliation performed by pharmacy medication reconciliations tube test technician and/or nursing. Patients Allergies have been reviewed. Allergies Allergies Coded Allergies NSAIDS (Non-Steroidal Anti-Inflamma (Verified Allergy, Intermediate, GI UPSET , 03/26/18) fentanyl (Verified Allergy, Mild, RASH, Pt has received Meperidine in the past , 07/25/18) ketorolac (Verified Allergy, Mild, RASH, 03/26/18) metoclopramide (Verified Allergy, Mild, NERVOUSNESS, 03/26/18) morphine (Verified Allergy, Mild, RASH, pt has received hydromorphone w/o issue, 07/25/18) prochlorperazine (Unverified Adverse Reaction, Unknown, 07/25/18) Past Kpthsym-Esqxrv-Kvigob Hx Past Med/Social Hx: Reviewed Nursing Past Med/Soc Hx Patient Social History Alcohol Use: Denies Use Recreational Drug Use: No Smoking Status: Current Everyday Smoker Type Used: Cigarettes 2nd Hand Smoke Exposure: Yes Recent Foreign Travel: No Contact w/other who traveled: No Recent Hopitalizations: Yes (CARDIAC STENT 03/2018) Recent Infectious Disease Expo: No Immunizations Up To Date Date of Influenza Vaccine: August 14, 2017 Seasonal Allergies Seasonal Allergies: No Past Medical History Surgeries: Appendectomy, Gallbladder Currently Using CPAP: No Currently Using BIPAP: No Cardiac: Atrial Fibrillation, Hypertension Neurological: Neuropathy Reproductive: No Sexually Transmitted Disease: No HIV/AIDS: No Gastrointestinal: Gastroesophageal Reflux Musculoskeletal: Arthritis Loss of Vision: Bilateral Hearing Impairment: Hard of Hearing Psychosocial: Depression History of Blood Disorders: No Adverse Reaction to Blood Alejandro: No Review of Systems Constitutional: see HPI Respiratory: short of breath Cardiovascular: no symptoms reported Gastrointestinal: abdominal pain Genitourinary: no symptoms reported Musculoskeletal: back pain Psychiatric/Neurological: Anxiety Physical Exam Physical Exam Vital Signs Vital Signs - First Documented 07/25/18 07/25/18 07/27/18 08:15 13:50 09:22 Temp 96.4 Pulse 62 Resp 16 B/P (MAP) 142/73 (96) Pulse Ox 96 O2 Delivery Room Air O2 Flow Rate 6 FiO2 21 Capillary Refill : Height, Weight, BMI Height: 6'1.00" Weight: 168lbs. 4.0oz. 76.225698lj; 22.2 BMI Method: General Appearance: Chronically ill, Severe Distress HEENT: PERRL/EOMI Neck: Normal Inspection, Non Tender Respiratory: Chest Non Tender, No Accessory Muscle Use, No Respiratory Distress (slightly wet sounding) Cardiovascular: No Murmur, Tachycardia Gastrointestinal: Distended, Guarding, Rebound Rectal: Deferred Extremity: Slow Capillary Refill Neurologic/Psychiatric: Alert, Oriented x3, No Motor/Sensory Deficits, Normal Mood/Affect, import specialist II-XII Norm as Tested Skin: Cool, Damp, Mottled Lymphatic: No Adenopathy Results Results/Procedures Labs Laboratory Tests 07/28/18 03:50 07/28/18 14:40 Patient resulted labs reviewed. Imaging: Reviewed Imaging Films, Reviewed Imaging Report Assessment/Plan Assessment and Plan Assess & Plan/Chief Complaint 1. Acute abdomen- would defer to surgery about the possibility of taking back to emergent surgery-risk of not doing surgery most likely out weighs the risk of proceeding 2. Respiratory distress-pulmonary emboli is a possibility vs. acute mi, chf 3. Decreased perfusion of the skin as represented by mottling and cyanotic toes - c/w septic shock or mechanical shock Plan to transfer to the ICU, central line per Dr. Landin surgery as indicated, rule out myocardial infarction since the patient does have a history of heart disease, recent stent, and has been off PLavix . at this juncture patient appears to be critical and guarded. consult cardiology. BERT MACIAS MD Jul 28, 2018 12:10
[2018-07-28] MEDS: LACTATED RINGERS 1,000 ML IV SCH (12:25)
--- NOTE | 2018-07-28 12:48 | NUR ---
1020 PT TO ICU VIA BED ACCOMPANIED BY 4TH FLOOR STAFF AND RT, RAPID RESPONSE CALLED ON THE FLOOR PT WAS HAVING RAPID RESPIRATIONS AND SOA. PT TO ICU WITH SEVERE ABDOMINAL PAIN, RESPIRATIONS WERE NOTED TO BE TACHYPNEIC IN THE HIGH 40'S, RT AT BEDSIDE AND PT PLACED ON [address] FRANCIS AT BEDSIDE AFTER PT'S ARRIVAL TO ICU. 10[address] BY DR FRANCIS. 1054 PT C/O OF ABDOMINAL PAIN DILAUDID GIVEN 0.[address] FRANCIS'S VERBAL ORDER. ORDER TO OBTAIN CONSENT FOR EXPLORATORY LAP, ALL OTHER INDICATED PROCEDURES. CONSENT OBTAINED AND PT VERBALIZES UNDERSTANDING. PT STATES HE HAS NO POA, IN CASE OF EMERGENCY WE ARE TO CONTACT [facility] AND TO ASK FOR F[facility], HOWEVER PT DOESN'T KNOW FABIAN'S LAST NAME.
--- NOTE | 2018-07-28 12:49 | Progress Note-Post Operative ---
Post-Operative Progess Note Surgeon (s)/[employer] (s) Surgeon MITRA FRANCIS DO [employer]itter: [facility] Pre-Operative Diagnosis Abdominal pain peritonitis, pneumopertioneum Post-Operative Diagnosis small bowel enterotomy Procedure & Operative Findings Date of Procedure 07/28/18 Procedure Performed/Findings exploratory laparotomy with repair of small bowel enterotomy Anesthesia Type gen Estimated Blood Loss Estimated blood loss (mL): min Specimens/Packing Specimens Removed na MITRA FRANCIS DO Jul 28, 2018 12:49
[2018-07-28] MEDS ORDERED: PROPOFOL DRIP (ICU) 100 ML IV ONE (12:59)
[2018-07-28] MEDS ORDERED: PIPERACILLIN/TAZO 4.5 GM/NS 100 ML IV NR ×2 (13:02)
[2018-07-28] MEDS ORDERED: ONDANSETRON 4 MG/2 ML (SDV) Z0FRAN IVP PRN (13:15)
[2018-07-28] MEDS ORDERED: MEPERIDINE (DEMEROL) INJ 50 MG/ML IVP ONE (13:15)
[2018-07-28] MEDS: PROPOFOL DRIP (ICU) 100 ML IV SCH ×2 (13:25→18:53)
--- NOTE | 2018-07-28 13:28 | NUR ---
dr crandall informed of consult, new orders received for vent settings of tv 500, rate16, peep 5. rt informed.
--- NOTE | 2018-07-28 13:38 | NUR ---
PTS BP 80'S/40'S-90'S/40'S, DR FRANCIS INFORMED. NEW ORDERS RECEIVED TO BOLUS 1L NS AND LEVOPHED IF NEEDED FOR CONTINUED LOW BP'S.
[2018-07-28] MEDS ORDERED: NS IV 1000 ML 1,000 ML IV SCH (13:45)
--- NOTE | 2018-07-28 13:50 | Diagnostic Imaging Report ---
EXAM: CHEST 1 VIEW, AP/PA ONLY INDICATION: Intubation. COMPARISON: Chest radiograph 07/28/2018. FINDINGS: ETT tip at the level of the clavicles. NG tube tip and side-port in the distal esophagus. Right IJ CVC tip mid SVC. Persistent atelectasis and probable small left pleural effusion. IMPRESSION: 1. New ETT in the expected position. 2. NG tube tip and side-port is in the distal esophagus. This should be advanced. Dictated by: Dictated on workstation # [id number]
--- NOTE | 2018-07-28 14:08 | NUR ---
1400 REPORT RECEIVED AT BEDSIDE FROM Adolfo NELSON RN.
[2018-07-28] MEDS ORDERED: HEParin 1000 UNIT/ML (10ML VIAL) FOR BOLUS IV PRN (14:30)
[2018-07-28 14:43] LABS: HEMOGLOBIN 13.8 G/DL (13.3-17.7); MEAN PLATELET VOLUME 10.3 FL (7.4-10.4); RED CELL DISTRIBUTION WIDTH 15.1 % (10.0-14.5); WHITE BLOOD COUNT 4.3 10^3/uL (4.3-11.0)
[2018-07-28 14:59] LABS: INR 1.2 (0.8-1.4); PROTHROMBIN TIME PATIENT 15.2 SEC (12.2-14.7)
[2018-07-28 15:01] LABS: ABG BASE EXCESS -5.6 MMOL/L (-2.5-2.5); ABG OXYGEN SATURATION 95 % (94-100); ABG PCO2 39 MMHG (35-45); ABG PO2 94 MMHG (79-93); ABG TCO2 20.4 MMOL/L (21.0-31.0)
[2018-07-28 15:03] LABS: ABG PH 7.32 (7.37-7.43); ALLENS TEST YES-POS; INSPIRED O2 100; VENTILATOR YES
[2018-07-28 15:04] LABS: PATIENT TEMP 97.3
[2018-07-28] MEDS: HEParin DRIP 25000 UNIT/500ML 500 ML IV SCH (15:32)
[2018-07-28] MEDS: HYDROmorphone 2 MG/ML VIAL (DILAUDID) IV PRN ×2 (15:45→21:52)
--- NOTE | 2018-07-28 15:46 | NUR ---
PT NOTED TO HAVE INCREASED RESPIRATIONS, DILAUDID GIVEN
--- NOTE | 2018-07-28 15:51 | OPERATIVE REPORT ---
DATE OF SERVICE: 07/28/2018 PREOPERATIVE DIAGNOSES: Need for venous access, diffuse abdominal pain, pneumoperitoneum. POSTOPERATIVE DIAGNOSES: Need for venous access, diffuse abdominal pain, pneumoperitoneum. PROCEDURE: Ultrasound-guided right internal jugular vein central line placement. SURGEON: Mitra Landin DO ANESTHESIA: Local. ESTIMATED BLOOD LOSS: Minimal. COMPLICATIONS: None. INDICATIONS: The patient is a 73-year-old male, who is status post exploratory laparotomy. He has poor venous access. He is having severe abdominal pain and pneumoperitoneum. DESCRIPTION OF PROCEDURE: We discussed risks and benefits of having central line placed. He understands risks and benefits and wished to proceed. Using ultrasound, the right internal jugular vein was located after the patient was prepped and draped in sterile fashion. The local anesthetic was used to infiltrate around the right internal jugular vein. Using ultrasound guidance, the right internal jugular vein was then accessed, dark nonpulsatile blood was withdrawn. The regular guidewire was inserted through the needle and the needle was removed. An 11 blade scalpel was used to make a skin incision at the insertion point. Dilator was then advanced over the guidewire and removed. The triple lumen catheter was advanced over the guidewire and the wire was removed. All ports were accessed and flushed without difficulty. The line was sutured in the usual fashion. The area was washed and dried and sterile bandage was applied. The patient tolerated procedure well without any complications. Chest x-ray pending. Job ID: [id number] DocumentID: [id number] Dictated Date: 07/28/2018 11:21:39 Mileage Clerk Date: 07/28/2018 15:50:34 Dictated By: MITRA LANDIN DO [facility] MEDICAL CENTERAlfonso
[2018-07-28] MEDS: NOREPINEPHRINE 4 MG in NS (IVPB) 250 ML IV SCH ×2 (16:02→18:08)
--- NOTE | 2018-07-28 16:12 | Consultation-Cardiology ---
HPI-Cardiology Cardiology Consultation: Date of Consultation 07/28/18 Date of Admission Attending Physician Munir Sheikh DO Admitting Physician Michelle,Local Physician Consulting Physician Bret CANO MD HPI: Time Seen by a Provider: 16:04 Chief Complaint: Shortness of breath, shock, abdominal pain This is a 73-year-old gentleman, Cardiology is urgently consulted for non-STEMI , shock, respiratory distress. Patient was already intubated and ventilated. The patient has history of CAD with PCI to the LAD in March 2018 with a drug- eluting stent by Dr. Vences. The patient has since been on dual antiplatelet therapy. However the patient recently underwent laparoscopic surgery and closure of an enterotomy on 07/26/2018. Today the patient was having severe abdominal pain, severe distress and was taken to the OR for exploratory laparotomy and found a small perforation which was repaired. The patient was intubated and ventilated and transferred to the ICU. The patient's blood pressure is systolic 80 mmHg. He is ventilating well. Troponins are positive. EKG does not show any ST elevation or ST depression, however T-wave inversions are noted in the anterior precordial leads. Review of Systems-Cardiology Review of Systems Constitutional: As described under HPI; No As described under HPI, No no symptoms reported, No chills, No fever, No lightheadedness Eyes: No As described under HPI, No no symptoms reported, No blindness, No blurred vision, No contact lenses, No drainage, No decreased acuity, No foreign body sensation, No pain, No vision change Ears/Nose/Throat: No As described under HPI, No no symptoms reported, No chronic hearing loss, No ear discharge, No ear pain, No nasal drainage, No ulcerations Respiratory: No no symptoms reported; As described under HPI; No As described under HPI, No cough; orthopnea; No shortness of breath, No SOB with excertion Cardiovascular: No no symptoms reported; As described under HPI; No As described under HPI, No chest pain, No edema, No irregular heart rate, No lightheadedness, No palpitations Gastrointestinal: No no symptoms reported, No As described under HPI, No abdomen distended; abdominal pain; No blood streaked bowels, No constipation, No diarrhea, No nausea, No vomiting, No stool coloration changes Genitourinary: No As described under HPI, No burning, No dysuria, No discharge , No frequency, No flank pain, No hematuria, No urgency Skin: No rash, No skin related problems, No ulcerations Psychiatric/Neurological: No anxiety, No depression, No seizure, No focal weakness, No syncope Hematologic: No bleeding abnormalities NPR-Afyrvh-Yreoti Hx Patient Social History Alcohol Use: Denies Use Recreational Drug Use: No Smoking Status: Current Everyday Smoker Type Used: Cigarettes 2nd Hand Smoke Exposure: Yes Recent Foreign Travel: No Recent Infectious Disease Expo: No Immunizations Up To Date Date of Influenza Vaccine: August 14, 2017 Past Medical History PMH As described under Assessment. Allergies and Home Medications Allergies Coded Allergies: NSAIDS (Non-Steroidal Anti-Inflamma (Verified Allergy, Intermediate, GI UPSET, 03/26/18) fentanyl (Verified Allergy, Mild, RASH, Pt has received Meperidine in the past, 07/25/18) ketorolac (Verified Allergy, Mild, RASH, 03/26/18) metoclopramide (Verified Allergy, Mild, NERVOUSNESS, 03/26/18) morphine (Verified Allergy, Mild, RASH, pt has received hydromorphone w/o issue, 07/25/18) prochlorperazine (Unverified Adverse Reaction, Unknown, 07/25/18) Home Medications Albuterol Sulfate 1 Puff Puff, 2 PUFF IH Q4H PRN for SHORTNESS OF BREATH, ( Reported) 1 PUFF = 90 MCG Aspirin 81 Mg Tablet.dr, 81 MG PO DAILY Prescribed by: EDIN VENCES on 04/01/18 0912 Atorvastatin Calcium 20 Mg Tablet, 20 MG PO DAILY, (Reported) Budesonide/Formoterol Fumarate 10.2 Gm Hfa.aer.ad, 2 PUFF IH BID, (Reported) Famotidine 40 Mg Tablet, 40 MG PO HS, (Reported) Fluticasone Propionate 16 Gm [place].susp, 2 SPRAY NS DAILY, (Reported) Gabapentin 400 Mg Capsule, 400 MG PO 0800,1400, (Reported) Gabapentin 800 Mg Tablet, 800 MG PO HS, (Reported) Lactulose 10 Gm/15 Ml Solution, 30 ML PO BID PRN for CONSTIPATION-3RD LINE, ( Reported) Losartan Potassium 100 Mg Tablet, 100 MG PO HS, (Reported) Metoprolol Succinate 50 Mg Tab.er.24h, 50 MG PO DAILY, (Reported) Oxycodone HCl 15 Mg Tablet, 15 MG PO TID Prescribed by: BHUMI MASCORRO on 03/28/181938 Oxycodone HCl 15 Mg Tablet, 15 MG PO HS PRN for PAIN-SEVERE Prescribed by: BHUMI MASCORRO on 03/28/181938 Pantoprazole Sodium 40 Mg Tablet.dr, 40 MG PO DAILY, (Reported) Polyethylene Glycol 3350 17 Gm Powd.pack, 17 GM PO DAILY PRN for CONSTIPATION- 2ND LINE, (Reported) Sertraline HCl 100 Mg Tablet, 100 MG PO HS, (Reported) Sodium Chloride 45 Ml [place], 1 SPRAY NS DAILY PRN for ALLERGIES, (Reported) Sucralfate 1 Gm Tablet, 1 GM PO Q6H PRN for GERD, (Reported) Ticagrelor 90 Mg Tablet, 90 MG PO BID Prescribed by: EDIN VENCES on 04/01/18911 Trazodone HCl 150 Mg Tablet, 300 MG PO HS PRN for INSOMNIA, (Reported) TAKES 2 (150MG) TABLETS Umeclidinium [place] 62.5 Mcg Blst.w.dev, 1 PUFF IH DAILY, (Reported) Patient Home Medication List Home Medication List Reviewed: Yes Physical Exam-Cardiology Physical Exam Vital Signs/I&O 07/28/18 07/28/18 07/28/18 07/28/18 06:41 07:50 08:00 10:13 Temp 98.3 Pulse 110 155 Resp 15 B/P (MAP) 150/80 (103) Pulse Ox 94 91 O2 Delivery Nasal Cannula Room Air Nasal Cannula O2 Flow Rate 2.00 2.00 07/28/18 07/28/18 07/28/18 07/28/18 10:25 10:30 11:00 12:58 Temp 98.2 97.3 Pulse 144 142 130 Resp 40 10 B/P (MAP) 121/87 (98) 120/87 (98) 152/76 (101) Pulse Ox 91 91 94 96 O2 Delivery High Flow N/C Room Air Room Air Mechanical Ventilator O2 Flow Rate 6.00 07/28/18 07/28/18 07/28/18 07/28/18 13:00 13:10 13:20 13:22 Pulse 128 112 Resp 14 14 15 Pulse Ox 96 97 96 O2 Delivery Mechanical Ventilator Mechanical Ventilator FiO2 90 07/28/18 07/28/18 07/28/1807/28/19 13:25 13:30 13:40 13:44 Temp 97.4 Pulse 113 Resp 14 16 24 B/P (MAP) 131/61 Pulse Ox 95 96 97 O2 Delivery Mechanical Ventilator Mechanical Ventilator FiO2 100 07/28/18 07/28/18 07/28/18 07/28/18 13:50 14:00 14:00 14:31 Temp 97.2 97.2 Pulse 101 Resp 16 21 16 B/P (MAP) 116/51 (72) Pulse Ox 96 96 96 O2 Delivery Mechanical Ventilator Mechanical Ventilator Mechanical Ventilator O2 Flow Rate 100.00 07/28/18 07/28/18 07/28/18 15:00 15:01 15:38 Temp 97.3 Pulse 103 Resp 23 28 B/P (MAP) 93/48 (63) Pulse Ox 95 94 O2 Delivery Mechanical Ventilator O2 Flow Rate 100.00 FiO2 100 07/28/18 00:00 Intake Total 600 ml Balance 600 ml Capillary Refill : Greater Than 3 Seconds Constitutional: appears stated age; No apparent distress; well-developed, well- nourished, other (Intubated/ventilated) HEENT: PERRL; No discharge; hearing is well preserved, oral hygience is good; No ulceration, No xanthelasmas are seen Neck: No carotid bruit; carotid pulses are 2 + bilaterally Respiratory: No accessory muscle use, No respiratory distress, No chest tender , No chest expansion is symmetric; chest is bilaterally symmetric; No lungs clear to percussion; lungs clear to auscultation; No crackles, No rhonchi, No rales, No stridor, No wheezing, No pleural rub; other (And intubated/ventilated. ) Cardiovascular: regular rate-rhythm; No irregularly irregular, No extra beats, No parasternal heave is noted, No JVD, No edema, No bradycardia, No tachycardia , No point of maximal impulse, No cardiac thrills are palpable; S1 and S2; No gallop/S3, No gallop/S4, No diastolic murmur, No systolic murmur, No friction rub, No click, No other Gastrointestinal: No spleenomegaly; other (Recent surgery.) Rectal: deferred Extremities: No normal range of motion, No non-tender, No normal inspection, No pedal edema, No calf tenderness, No normal capillary refill, No pelvis stable , No calf tenderness, No inflammation, No pedal edema, No slow capillary refill , No swelling, No other, No abrasion, No clubbing, No cyanosis, No ecchymosis, No laceration, No no lower extremity edema bilateral, No significant edema, No tenderness, No wound Neurologic/Psychiatric: other (Intubated/ventilated.) Skin: No rash, No ulcerations Data Review Labs Laboratory Tests 07/28/18 03:50: White Blood Count 12.1H, Red Blood Count 5.03, Hemoglobin 14.9, Hematocrit 43, Mean Corpuscular Volume 85, Mean Corpuscular Hemoglobin 30, Mean Corpuscular Hemoglobin Concent 35, Red Cell Distribution Width 15.2H, Platelet Count 202, Mean Platelet Volume 10.7H, Sodium Level 137, Potassium Level 3.1L, Chloride Level 105, Carbon Dioxide Level 19L, Anion Gap 13, Blood Urea Nitrogen 20H, Creatinine 0.75, Estimat Glomerular Filtration Rate > 60, BUN/Creatinine Ratio 27, Glucose Level 157H, Calcium Level 9.5, Magnesium Level 1.7L 07/28/18 09:49: Glucometer 200H 07/28/18 13:20: Troponin I 2.721*H, B-Type Natriuretic Peptide 1125.9H, Triglycerides Level 72 07/28/18 14:40: White Blood Count 4.3, Red Blood Count 4.64, Hemoglobin 13.8, Hematocrit 41, Mean Corpuscular Volume 88, Mean Corpuscular Hemoglobin 30, Mean Corpuscular Hemoglobin Concent 34, Red Cell Distribution Width 15.1H, Platelet Count 169, Mean Platelet Volume 10.3, Prothrombin Time 15.2H, INR Comment 1.2, Activated Partial Thromboplast Time 24, Lactic Acid Level 1.18 07/28/18 14:54: Blood Gas Puncture Site LT RAD, Blood Gas Patient Temperature 97.3, Arterial Blood pH 7.32*L, Arterial Blood Partial Pressure CO2 39, Arterial Blood Partial Pressure O2 94H, Arterial Blood HCO3 19L, Arterial Blood Total CO2 20.4L, Arterial Blood Oxygen Saturation 95, Arterial Blood Base Excess -5.6L, Glen Test YES-POS, Blood Gas Ventilator Setting YES, Blood Gas Inspired Oxygen 100 Microbiology 07/25/18 MRSA Screen - Final, Complete MRSA not isolated ECG Impression ECG Initial ECG Rhythm: Normal Sinus Comment Sinus rhythm with T-wave inversions in the anterior precordial leads. A/P-Cardiology Assessment/Admission Diagnosis Perforated viscus, Post-abdominal surgery today, Non-STEMI, Shock, Acute congestive heart failure Plan Critically ill patient in shock. Unclear etiology of shock. Cardiogenic shock cannot be ruled out. The blood pressure systolic was around 80 mmHg when I was in the room. Therefore I recommended that Levophed should be started with consent of Dr. Landin. Will recommend an echocardiogram to check for LV function. Non-STEMI: Abdominal surgery today, therefore with Dr. Landin's advise he started the patient on IV heparin. We will also give Plavix through the NG tube. Stent thrombosis cannot be ruled out since the patient had a drug- eluting stent in March 2018. The patient will require coronary angiography. We'll try to stabilize the patient first and also since the patient had abdominal surgery today the risk of bleeding is very high, therefore hopefully will be able to do it tomorrow. Acute congestive heart failure: Elevated BNP. Will check LVEF with an echocardiogram. I was present with the civil laboratory technician while the echo was being done. Technically difficult study since the patient is lying on his back and ventilated. Difficult to accurately assess EF and wall motion. Will likely need to be repeated again tomorrow with contrast. Perforated viscus, defer to the surgery team. Ventilated patient, defer to Dr. Fairbanks. Critically ill patient, over 45 minutes were spent taking care of the patient. Thank you for your consultation. Please call me if you have any questions. Pati Cano MD, FACP, FACC, FSCAI, FHRS, CCDS Interventional Cardiology Cardiac Electrophysiology Vascular Medicine and Endovascular Interventions Bret CANO MD Jul 28, 2018 16:12
[2018-07-28] MEDS: inSUlin ASPART (NovoLOG) 1 UNIT/0.01 ML (CHARGE PER UNIT) SC SCH (17:30)
[2018-07-28] MEDS ORDERED: NS (IVPB) 50 ML ONE (17:54)
[2018-07-28] MEDS: DEXMEDETOMIDINE INJECTION 200 MCG in NS (IVPB) 50 ML IV SCH ×2 (17:58→22:00)
[2018-07-28] MEDS: PIPERACILLIN/TAZOBACTAM (BULK) 4.5 GM in NS (IVPB) 100 ML IV SCH (18:07)
--- NOTE | 2018-07-28 18:18 | NUR ---
1734 DR FRANCIS NOTIFIED OF PT'S INCREASED RESP RATE IN THE 40'S AND ELEVATED HEART RATE IN THE 130'S. ORDERS TO CONTACT DR FARNSWORTH REGARDING USE OF PRECEDEX. 1740 DR FARNSWORTH NOTIFIED OF ABOVE AND PRECEDEX STARTED. 181 FABIAN DUNLAP SENIOR OFFICE ASSISTANT OF [employer] CALLED TO CHECK ON PATIENT, PT REQUEST PRIOR TO SURGERY WE WERE TO CALL HER IN CASE OF EMERGENCY, PASS[employer] SET UP AND TELEPHONE CONSENT OBTAINED FOR CARDIAC CATHETERIZATION SCHEDULED FOR TOMORROW.
--- NOTE | 2018-07-28 18:27 | NUR ---
PT'S PULSE INCREASED TO 140'S-150'S W/ FREQUENT PVC'S. DR CASANOVA NOTIFIED. NEW ORDERS RECEIVED TO TITRATE DOWN LEVOPHED AND START RICHARDSON-SYNEPHRINE.
[2018-07-28] MEDS ORDERED: NS (IVPB) 250 ML ONE ×3 (18:28→19:44)
[2018-07-28] MEDS ORDERED: PHENYLEPHRINE INJECTION 20 MG in NS (IVPB) 250 ML IV SCH (18:30)
[2018-07-28] MEDS: PHENYLEPHRINE INJECTION 10 MG in NS (IVPB) 250 ML IV SCH ×2 (18:37→19:13)
--- NOTE | 2018-07-28 18:50 | NUR ---
EICU NOTIFIED OF PT'S HR IN 160'S. ADVISED TO TITRATE UP RICHARDSON.
[2018-07-28] MEDS ORDERED: SODIUM BICARB 8.4% 50 MEQ/50 ML (ABBOTT) SYR IV ONE (19:45)
[2018-07-28] MEDS ORDERED: ALBUMIN 5% 12.5 GM/250 ML 500 ML IV ONE (19:45)
[2018-07-28] MEDS ORDERED: NS IV SCH (20:15)
[2018-07-28] MEDS ORDERED: PHENYLEPHRINE IV SCH (20:15)
[2018-07-28 20:52] LABS: ALBUMIN 2.5 GM/DL (3.2-4.5); MAGNESIUM 1.5 MG/DL (1.8-2.4); POTASSIUM 3.5 MMOL/L (3.6-5.0)
[2018-07-28] MEDS: NS IV SCH (21:06)
[2018-07-28] MEDS: PHENYLEPHRINE IV SCH (21:06)
[2018-07-29] VITALS (33 sets, daily range): BP systolic 54–227; BP diastolic 30–148
[2018-07-29] MEDS: HYDROmorphone 2 MG/ML VIAL (DILAUDID) IV PRN ×2 (00:48→03:47)
[2018-07-29] MEDS: inSUlin ASPART (NovoLOG) 1 UNIT/0.01 ML (CHARGE PER UNIT) SC SCH ×4 (00:49→17:51)
[2018-07-29] MEDS: LACTATED RINGERS 1,000 ML IV SCH ×2 (00:49→18:49)
[2018-07-29] MEDS: DEXMEDETOMIDINE INJECTION 200 MCG in NS (IVPB) 50 ML IV SCH ×2 (00:52→03:54)
[2018-07-29] MEDS: RT-ALBUTEROL/IPRATROPIUM 3 ML (DUONEB) VIAL INH SCH ×5 (01:18→22:34)
[2018-07-29] MEDS: NS IV 1000 ML 1,000 ML IV SCH (01:21)
[2018-07-29] MEDS: NS IV SCH (02:06)
[2018-07-29] MEDS: PHENYLEPHRINE IV SCH (02:06)
--- NOTE | 2018-07-29 02:30 | NUR ---
Reported to EICU patient's output low, 25cc for the last four hours. Orders received to given Albumin 500mL bolus.
[2018-07-29] MEDS ORDERED: ALBUMIN 5% 12.5 GM/250 ML 500 ML IV ONE (02:38)
[2018-07-29] MEDS: NOREPINEPHRINE 4 MG in NS (IVPB) 250 ML IV SCH ×2 (03:17→11:30)
[2018-07-29] MEDS: PIPERACILLIN/TAZOBACTAM (BULK) 4.5 GM in NS (IVPB) 100 ML IV SCH ×3 (03:23→17:52)
[2018-07-29 03:38] LABS: ABG BASE EXCESS -7.8 MMOL/L (-2.5-2.5); ABG OXYGEN SATURATION 92 % (94-100); ABG PCO2 41 MMHG (35-45); ABG PO2 81 MMHG (79-93); ABG TCO2 18.9 MMOL/L (21.0-31.0); BASOPHILS % (AUTO) 0 % (0-10); EOSINOPHILS % (AUTO) 0 % (0-10); HEMATOCRIT 42 % (40-54); HEMOGLOBIN 13.6 G/DL (13.3-17.7); LYMPHOCYTES # (AUTO) 0.3 X 10^3 (1.0-4.0); LYMPHOCYTES % (AUTO) 6 % (12-44); MEAN CORPUSCULAR HEMOGLOBIN 29 PG (25-34); MEAN CORPUSCULAR HGB CONC 33 G/DL (32-36); MEAN CORPUSCULAR VOLUME 89 FL (80-99); MEAN PLATELET VOLUME 10.6 FL (7.4-10.4); MONOCYTES # (AUTO) 0.2 X 10^3 (0.0-1.0); MONOCYTES % (AUTO) 4 % (0-12); NEUTROPHILS # (AUTO) 4.3 X 10^3 (1.8-7.8); NEUTROPHILS % (AUTO) 90 % (42-75); PLATELET COUNT 237 10^3/uL (130-400); RED CELL DISTRIBUTION WIDTH 15.8 % (10.0-14.5); WHITE BLOOD COUNT 4.8 10^3/uL (4.3-11.0)
[2018-07-29 03:39] LABS: ABG PH 7.26 (7.37-7.43)
[2018-07-29 03:40] LABS: ALLENS TEST YES-POS; INSPIRED O2 80%; PATIENT TEMP 100.6; VENTILATOR YES
[2018-07-29] MEDS ORDERED: ALBUMIN 5% 12.5 GM/250 ML 250 ML IV SCH (03:45)
[2018-07-29 03:57] LABS: CALCIUM 7.4 MG/DL (8.5-10.1); CREATININE SERUM 1.85 MG/DL (0.60-1.30); MAGNESIUM 2.1 MG/DL (1.8-2.4); PHOSPHORUS 3.5 MG/DL (2.3-4.7); POTASSIUM 4.4 MMOL/L (3.6-5.0)
--- NOTE | 2018-07-29 04:04 | NUR ---
REported ABG and troponin results to EICU. Recieved orders to change vent settings. Will continue to monitor.
[2018-07-29] MEDS ORDERED: SODIUM BICARB 8.4% 50 MEQ/50 ML (ABBOTT) SYR IV ONE ×2 (04:05→06:00)
--- NOTE | 2018-07-29 04:37 | OPERATIVE REPORT ---
DATE OF SERVICE: 07/28/2018 PREOPERATIVE DIAGNOSES: Abdominal pain, peritonitis, pneumoperitoneum. POSTOPERATIVE DIAGNOSIS: Small bowel enterotomy. PROCEDURE PERFORMED: Exploratory laparotomy with repair of small bowel enterotomy. SURGEON: Mitra Landin DO ANESTHESIA: General. ESTIMATED BLOOD LOSS: Minimal. COMPLICATIONS: None. INDICATIONS: The patient is a 73-year-old male, who had a recent lysis of adhesions and repair of enterotomies. He began having severe abdominal pain and by x-ray had more than expected pneumoperitoneum. The patient's exam was peritoneal. He was transferred to the ICU and was discussed risks and benefits of exploratory laparotomy and all other indicated procedures. The patient understands risks and benefits and wished to proceed with procedure. Consent was signed on the chart. DESCRIPTION OF PROCEDURE: The patient was taken to the operating suite, was prepped and draped in sterile fashion. Timeout was performed. Midline incision was opened and extended. There was some phlegmon present and air escaped once the abdomen was entered. The small bowel adhesions were then started to be bluntly taken down. There were some succuss throughout the middle portion of the abdomen and in the gutters. This was suctioned out. The small bowel was begun to be ran where a previous enterotomy was repaired. Next to this, it appears that there was an approximately 6 mm opening into the small bowel where possibly the suture pulled through or failed. The defect was then closed using 3-0 silk pop-off. The abdomen was then irrigated with copious amounts of irrigation and suction. The small bowel was inspected not noting any other serosal or enterotomy. The stomach had normal appearance colon that was visualized and had no abnormality. There are still some adhesions down the pelvis, which were significantly adhered, but no visualization of any abnormality. At this time, the abdomen was then irrigated and suctioned again. The incision was then closed using 1-0 looped PDS. Once closed, the wound was irrigated with copious amounts of irrigation and the skin was then stapled shut. The abdomen was then washed and dried and sterile bandage was applied. The patient tolerated procedure well without any complications. He was taken to the Intensive Care Unit postoperatively. Job ID: [id number] DocumentID: [id number] Dictated Date: 07/28/2018 17:33:45 Chronograph Operator Date: 07/29/2018 02:23:27 Dictated By: MITRA LANDIN DO [facility]
--- NOTE | 2018-07-29 06:00 | Pulmonary Consultation ---
History of Present Illness History of Present Illness Date of Consultation 07/29/18 05:52 Time Seen by Provider: 05:52 Date of Admission History of Present Illness 73yo presented for elective surgery ex lap and lysis of adhesion then admitted to 4th floor. Pt was having worsening severe pain while on 4th floor. Rapid response was called KUB was done that showed increased peritoneal free air. Pt was taken back to surgery and perforation was repaired. Pt was left on vent post surgery and transferred to surgery. Pt also has increased troponins. Dr. Cano is consulted and is discussing a heart cath. I am consulted for ICU management. Allergies and Home Medications Allergies Coded Allergies: NSAIDS (Non-Steroidal Anti-Inflamma (Verified Allergy, Intermediate, GI UPSET, 03/26/18) fentanyl (Verified Allergy, Mild, RASH, Pt has received Meperidine in the past, 07/25/18) ketorolac (Verified Allergy, Mild, RASH, 03/26/18) metoclopramide (Verified Allergy, Mild, NERVOUSNESS, 03/26/18) morphine (Verified Allergy, Mild, RASH, pt has received hydromorphone w/o issue, 07/25/18) prochlorperazine (Unverified Adverse Reaction, Unknown, 07/25/18) Home Medications Acetaminophen 500 Mg Tablet, 500-1,000 MG PO UD PRN for PAIN-MILD OR TEMPATURE, (Reported) Albuterol Sulfate 1 Puff Puff, 2 PUFF IH Q4H PRN for SHORTNESS OF BREATH, ( Reported) Aripiprazole 2 Mg Tablet, 2 MG PO HS, (Reported) Aspirin 81 Mg Tablet.dr, 81 MG PO DAILY, (Reported) Atorvastatin Calcium 20 Mg Tablet, 20 MG PO DAILY, (Reported) Budesonide/Formoterol Fumarate 10.2 Gm Hfa.aer.ad, 2 PUFF IH BID, (Reported) Clopidogrel Bisulfate 75 Mg Tablet, 75 MG PO DAILY, (Reported) Famotidine 40 Mg Tablet, 40 MG PO HS, (Reported) Fluticasone Propionate 16 Gm [place].susp, 2 SPRAYS NS DAILY, (Reported) Gabapentin 400 Mg Capsule, 400 MG PO 0800,1400, (Reported) Gabapentin 800 Mg Tablet, 800 MG PO HS, (Reported) Isosorbide Mononitrate 30 Mg Tab.er.24h, 30 MG PO DAILY, (Reported) Losartan Potassium 100 Mg Tablet, 100 MG PO HS, (Reported) Metoprolol Succinate 50 Mg Tab.er.24h, 50 MG PO DAILY, (Reported) Nicotine 1 Each Patch.td24, 21 MG TD DAILY, (Reported) Oxycodone HCl 15 Mg Tablet, 15 MG PO QID, (Reported) Oxycodone HCl 15 Mg Tablet, 15 MG PO HS PRN for PAIN-SEVERE, (Reported) Pantoprazole Sodium 40 Mg Tablet.dr, 40 MG PO DAILY, (Reported) Polyethylene Glycol 3350 17 Gm Powd.pack, 17 GM PO DAILY PRN for CONSTIPATION- 2ND LINE, (Reported) Ranolazine 500 Mg Tab.er.12h, 500 MG PO BID, (Reported) Sertraline HCl 100 Mg Tablet, 100 MG PO HS, (Reported) Sodium Chloride 45 Ml [place], 1 SPRAY NS DAILY PRN for ALLERGIES, (Reported) Sucralfate 1 Gm Tablet, 1 GM PO Q6H PRN for GERD, (Reported) Trazodone HCl 150 Mg Tablet, 300 MG PO HS, (Reported) TAKES 2 (150MG) TABLETS Umeclidinium [place] 62.5 Mcg Blst.w.dev, 1 PUFF IH DAILY, (Reported) Past Odfjejl-Vatugl-Bpavjw Hx Past Med/Social Hx: Reviewed Nursing Past Med/Soc Hx Patient Social History Alcohol Use: Denies Use Recreational Drug Use: No Smoking Status: Current Everyday Smoker Type Used: Cigarettes 2nd Hand Smoke Exposure: Yes Recent Foreign Travel: No Contact w/Someone Who Travel: No Recent Infectious Disease Expo: No Recent Hopitalizations: Yes (CARDIAC STENT 03/2018) Immunizations Up To Date Date of Influenza Vaccine: August 14, 2017 Seasonal Allergies Seasonal Allergies: No Past Medical History Surgeries: Yes Appendectomy, Gallbladder Respiratory: Yes COPD Currently Using CPAP: No Currently Using BIPAP: No Cardiac: Yes (cardiac ablation, heart stents) Atrial Fibrillation, Hypertension Neurological: Yes Neuropathy Reproductive Disorders: No Sexually Transmitted Disease: No HIV/AIDS: No Genitourinary: No Gastrointestinal: Yes (adhesions) Gastroesophageal Reflux Musculoskeletal: Yes (R Hip replacement) Arthritis Endocrine: No HEENT: Yes Loss of Vision: Bilateral Hearing Impairment: Hard of Hearing Cancer: No Psychosocial: No Depression Integumentary: No Blood Disorders: No Adverse Reaction/Blood Tranf: No Review of Systems Time Seen by Provider: 15:59 Sepsis Event Evaluation Height, Weight, BMI Height: 6'1.00" Weight: 168lbs. 4.0oz. 76.900152by; 22.2 BMI Method: Exam Exam Vital Signs Date Time Temp Pulse Resp B/P (MAP) Pulse Ox O2 Delivery O2 Flow Rate FiO2 07/29/18 05:00 122 44 123/50 (74) 100 Mechanical Ventilator 80.00 07/29/18 04:24 37 100 80 07/29/18 04:00 118 35 108/50 (69) 100 Mechanical Ventilator 80.00 07/29/18 03:40 100.6 07/29/18 03:00 121 38 119/68 (85) 100 Mechanical Ventilator 80.00 07/29/18 02:00 120 40 107/66 (80) 99 Mechanical Ventilator 80.00 07/29/18 01:35 Mechanical Ventilator 80.00 07/29/18 01:19 34 100 100 07/29/18 01:00 115 34 90/57 (68) 100 Mechanical Ventilator 100.00 07/29/18 01:00 119 07/29/18 01:00 100.8 07/29/18 00:00 100.4 07/29/18 00:00 123 36 124/68 (86) 100 Mechanical Ventilator 100.00 07/28/18 23:59 Mechanical Ventilator 07/28/18 23:00 122 32 117/64 (81) 98 Mechanical Ventilator 100.00 07/28/18 22:16 99.6 07/28/18 22:00 126 30 107/59 (75) 99 Mechanical Ventilator 100.00 07/28/18 21:37 99.7 07/28/18 21:21 32 99 100 07/28/18 21:15 110 31 104/58 (73) 99 Mechanical Ventilator 100.00 07/28/18 21:00 129 33 87/47 (60) 99 Mechanical Ventilator 100.00 07/28/18 20:15 133 21 107/70 (82) 97 Mechanical Ventilator 100.00 07/28/18 20:00 Mechanical Ventilator 07/28/18 20:00 99.1 07/28/18 20:00 137 44 83/56 (65) 97 Mechanical Ventilator 100.00 07/28/18 19:45 138 47 100/61 (74) 96 Mechanical Ventilator 100.00 07/28/18 19:30 140 60 108/65 (79) 98 Mechanical Ventilator 100.00 07/28/18 19:15 146 60 105/63 (77) 98 Mechanical Ventilator 100.00 07/28/18 19:00 155 07/28/18 19:00 156 44 88/56 (67) 96 Mechanical Ventilator 100.00 07/28/18 18:53 81/54 07/28/18 18:12 30 97 100 07/28/18 18:00 135 42 98/60 (73) 96 Mechanical Ventilator 100.00 07/28/18 17:00 140 31 110/62 (78) 99 Mechanical Ventilator 100.00 07/28/18 16:20 96 Mechanical Ventilator 100 07/28/18 16:00 111 26 101/55 (70) 100 Mechanical Ventilator 100.00 07/28/18 15:38 28 94 100 07/28/18 15:01 97.3 07/28/18 15:00 103 23 93/48 (63) 95 Mechanical Ventilator 100.00 07/28/18 14:31 97.2 07/28/18 14:00 97.2 16 96 Mechanical Ventilator 07/28/18 14:00 101 21 116/51 (72) 96 Mechanical Ventilator 100.00 07/28/18 13:50 16 96 Mechanical Ventilator 07/28/18 13:44 24 97 100 07/28/18 13:40 16 96 Mechanical Ventilator 07/28/18 13:30 97.4 14 95 Mechanical Ventilator 07/28/18 13:25 113 131/61 07/28/18 13:22 112 15 96 90 07/28/18 13:20 14 97 Mechanical Ventilator 07/28/18 13:10 14 96 Mechanical Ventilator 07/28/18 13:00 128 07/28/18 12:58 97.3 10 96 Mechanical Ventilator 07/28/18 11:00 130 152/76 (101) 94 Room Air 07/28/18 10:30 142 120/87 (98) 91 Room Air 07/28/18 10:25 98.2 144 40 121/87 (98) 91 High Flow N/C 6.00 07/28/18 10:13 155 07/28/18 08:00 Nasal Cannula 2.00 07/28/18 07:50 98.3 110 15 150/80 (103) 91 Room Air 07/28/18 06:41 94 Nasal Cannula 2.00 I & O 07/29/18 07:00 Intake Total 3922 ml Output Total 545 ml Balance 3377 ml Height & Weight Height: 6'1.00" Weight: 168lbs. 4.0oz. 76.057981zq; 22.2 BMI Method: General Appearance: Chronically ill, Severe Distress, Other (sedated on vent) HEENT: PERRL/EOMI Neck: Normal Inspection, Non Tender Respiratory: Chest Non Tender, Accessory Muscle Use, Crackles, Decreased Breath Sounds, Respiratory Distress Cardiovascular: No Murmur, Tachycardia Gastrointestinal: distended, tenderness (diffusely peritoneal on exam) Extremity: Normal Capillary Refill, Normal Inspection, Slow Capillary Refill Neurologic/Psychiatric: Alert, Oriented x3, No Motor/Sensory Deficits, Normal Mood/Affect, sleep technician II-XII Norm as Tested Skin: Cool, Damp, Mottled Lymphatic: No Adenopathy Results Lab Laboratory Tests 07/28/18 03:50 07/28/18 14:40 07/28/18 20:27 07/29/18 03:30 Assessment/Plan Assessment/Plan Acute respiratory failure -Continue ventilator care Iatrogenic perforated Viscus S/p surgery NSTEMI -Dr. Cano is consulted -Possible cath today Acute renal failure with metabolic acidosis -Start bicarb gtt -Give 2 amps of Bicarb IV Hypotension r/o cardiogenic shock vs hypovolemia -Give a liter of IVF -CHRISTOPHER Day DO Jul 29, 2018 06:00
[2018-07-29] MEDS ORDERED: ANIDULAFUNGIN INJECTION 200 MG in NS (IVPB) 250 ML IV NR (06:15)
[2018-07-29] MEDS ORDERED: HYDROmorphone 2 MG/ML VIAL (DILAUDID) IV PRN (06:45)
--- NOTE | 2018-07-29 07:02 | Diagnostic Imaging Report ---
INDICATION: Shortness of breath. COMPARISON: 07/28/2018. FINDINGS: Single view of the chest demonstrates cardiac enlargement without overt pulmonary edema. Support lines are stable. There is unchanged atelectasis and infiltrate in both bases. There are stable trace effusions. There is no pneumothorax. IMPRESSION: 1. Stable bibasilar atelectasis and infiltrate. 2. Stable trace effusions. 3. Stable support lines. Dictated by: Dictated on workstation # [id number]
[2018-07-29] MEDS: PROPOFOL DRIP (ICU) 100 ML IV SCH ×2 (07:21→20:44)
[2018-07-29] MEDS: KCL 20 MEQ TAB (K-DUR) PO SCH (07:22)
[2018-07-29] MEDS: MAGNESIUM 1 GM/100 ML IVPB 100 ML IV SCH ×3 (07:22→16:31)
[2018-07-29] MEDS: POTASSIUM CL 10MEQ/50ML IVPB 50 ML IV SCH ×3 (07:22→16:31)
[2018-07-29] MEDS: SODIUM BICARBONATE 8.4% VIAL 100 MEQ in D5 1/2 NS 1000 ML IV SOLUTION 1,000 ML IV SCH ×3 (07:33→20:46)
[2018-07-29] MEDS: MIDAZOLAM INJECTION FOR DRIPS 50 MG in NS (IVPB) 90 ML IV SCH (07:34)
[2018-07-29] MEDS: PANTOPRAZOLE 40 MG (PROTONIX) VIAL IV SCH (07:36)
[2018-07-29] MEDS: meTOproloL SUCCINATE 50 MG (TOPROL XL) TAB PO SCH (07:58)
[2018-07-29 08:13] LABS: BILIRUBIN,URINE NEGATIVE (NEGATIVE); COLOR,URINE AMBER; GLUCOSE, URINE (UA) 1+ (NEGATIVE); KETONES,URINE 1+ (NEGATIVE); LEUKOCYTE ESTERASE ,URINE 2+ (NEGATIVE); NITRITE,URINE POSITIVE (NEGATIVE); PH,URINE 5 (5-9); PROTEIN,URINE 3+ (NEGATIVE); UROBILINOGEN,URINE 1 MG/DL (NORMAL)
[2018-07-29 08:26] LABS: AMORPHOUS SEDIMENT,UR LARGE AMOR URATES /LPF; BACTERIA,URINE TRACE /HPF; CLARITY,URINE VERY CLOUDY
--- NOTE | 2018-07-29 09:43 | Anesthesia-General Post-Op ---
General Patient Condition Cardiovascular: Unsatisfactory Nausea/Vomiting: Absent Respiratory: Unsatisfactory Pain: Uncontrolled Post Op Complications Complications pt still on vasopressors and vent unable determine LOC/pain Follow Up Care/Instructions Patient Instructions None needed. Anesthesia/Patient Condition Patient Condition D/C home per [facility] [place] Criteria: ALESSANDRO He CRNA Jul 29, 2018 09:43
[2018-07-29] MEDS ORDERED: LACTATED RINGERS 1,000 ML IV SCH ×2 (10:30→16:00)
--- NOTE | 2018-07-29 11:20 | NUR ---
Pastoral care visit, pt on vent no family in room.
[2018-07-29 13:20] LABS: BASOPHILS % (AUTO) 0 % (0-10); EOSINOPHILS % (AUTO) 0 % (0-10); HEMATOCRIT 38 % (40-54); HEMOGLOBIN 12.4 G/DL (13.3-17.7); LYMPHOCYTES # (AUTO) 0.4 X 10^3 (1.0-4.0); LYMPHOCYTES % (AUTO) 5 % (12-44); MEAN CORPUSCULAR HEMOGLOBIN 30 PG (25-34); MEAN CORPUSCULAR HGB CONC 33 G/DL (32-36); MEAN CORPUSCULAR VOLUME 90 FL (80-99); MEAN PLATELET VOLUME 10.7 FL (7.4-10.4); MONOCYTES # (AUTO) 0.5 X 10^3 (0.0-1.0); MONOCYTES % (AUTO) 6 % (0-12); NEUTROPHILS # (AUTO) 7.2 X 10^3 (1.8-7.8); NEUTROPHILS % (AUTO) 88 % (42-75); PLATELET COUNT 175 10^3/uL (130-400); RED CELL DISTRIBUTION WIDTH 15.8 % (10.0-14.5); WHITE BLOOD COUNT 8.1 10^3/uL (4.3-11.0)
[2018-07-29] MEDS ORDERED: MIDAZOLAM 5 MG/5 ML (VERSED) VIAL ONE (13:29)
[2018-07-29] MEDS ORDERED: fentaNYL INJECTION 100 MCG/2 ML AMP ONE (13:30)
[2018-07-29] MEDS ORDERED: HEParin 1000 UNIT/ML (10ML VIAL) FOR BOLUS ONE (13:30)
[2018-07-29] MEDS ORDERED: NS IV 1000 ML 3,000 ML ONE (13:30)
[2018-07-29] MEDS ORDERED: LIDOCAINE 1% INJ 20 ML 20 ML VIAL ONE (13:30)
[2018-07-29] MEDS ORDERED: ISOS30TA3 PO (13:46)
[2018-07-29] MEDS ORDERED: ASPI-983 PO (13:46)
[2018-07-29] MEDS ORDERED: RANO500T3 PO (13:46)
[2018-07-29] MEDS ORDERED: NICO-588 TD (13:46)
[2018-07-29] MEDS ORDERED: ACET-2267 PO (13:46)
[2018-07-29] MEDS ORDERED: CLOP75TA28 PO (13:46)
[2018-07-29] MEDS ORDERED: OXYC15TA79 PO ×2 (13:46)
[2018-07-29] MEDS ORDERED: ARIP2TAB11 PO (13:46)
[2018-07-29 13:53] LABS: CALCIUM 7.1 MG/DL (8.5-10.1); CREATININE SERUM 2.51 MG/DL (0.60-1.30); MAGNESIUM 1.3 MG/DL (1.8-2.4); PHOSPHORUS 3.8 MG/DL (2.3-4.7); POTASSIUM 3.7 MMOL/L (3.6-5.0)
--- NOTE | 2018-07-29 13:54 | NUR ---
UPDATED MED REC WITH MAR FROM [facility]
[2018-07-29 14:12] LABS: BAND NEUTROPHILS 36 %; NEUTROPHILS % (MANUAL) 42 %
[2018-07-29 14:13] LABS: BASOPHILS % (MANUAL) 0 %; EOSINOPHILS % (MANUAL) 0 %; LYMPHOCYTES % (MANUAL) 10 %; METAMYELOCYTES % 8 %; MONOCYTES % (MANUAL) 2 %; RBC MORPH NORMAL; REACTIVE LYMPHOCYTES 2 %
--- NOTE | 2018-07-29 14:13 | Progress Note ---
LELE SMITH MEDICAL STUDENT 07/29/18 1413: Subjective Date Seen by a Provider: Jul 29, 2018 Time Seen by a Provider: 14:08 Subjective/Events-last exam Patient remains on ventilator, about to be taken to photo lab specialist by cardiology team. Blood pressure is 100s systolic while receiving epinephrine, no longer getting phenylephrine. Troponin has increased from 2 yesterday to ~4 today. Creatinine has doubled to 2. Vent drainage is dark green in color. Focused Exam Lactate Level 07/28/18 14:40: Lactic Acid Level 1.18 07/28/18 20:27: Lactic Acid Level 1.91 07/29/18 04:22: Lactic Acid Level 2.00 Objective Exam Last Set of Vital Signs Vital Signs Date Time Temp Pulse Resp B/P (MAP) Pulse Ox O2 Delivery O2 Flow Rate FiO2 07/29/18 12:00 125 27 122/56 (78) 97 Mechanical Ventilator 50.00 07/29/18 11:08 40 07/29/18 07:34 99.2 Capillary Refill : Greater Than 3 Seconds I&O Intake and Output 07/29/18 00:00 Intake Total 3416 ml Output Total 820 ml Balance 2596 ml Intake Oral 300 ml IV Total 3116 ml Output Urine Total 720 ml Gastric Drainage Total 100 ml Results Lab Laboratory Tests 07/28/18 14:40: White Blood Count 4.3, Red Blood Count 4.64, Hemoglobin 13.8, Hematocrit 41, Mean Corpuscular Volume 88, Mean Corpuscular Hemoglobin 30, Mean Corpuscular Hemoglobin Concent 34, Red Cell Distribution Width 15.1H, Platelet Count 169, Mean Platelet Volume 10.3, Prothrombin Time 15.2H, INR Comment 1.2, Activated Partial Thromboplast Time 24, Lactic Acid Level 1.18 07/28/18 14:54: Blood Gas Puncture Site LT RAD, Blood Gas Patient Temperature 97.3, Arterial Blood pH 7.32*L, Arterial Blood Partial Pressure CO2 39, Arterial Blood Partial Pressure O2 94H, Arterial Blood HCO3 19L, Arterial Blood Total CO2 20.4L, Arterial Blood Oxygen Saturation 95, Arterial Blood Base Excess -5.6L, Glen Test YES-POS, Blood Gas Ventilator Setting YES, Blood Gas Inspired Oxygen 100 07/28/18 17:27: Glucometer 155H 07/28/18 20:27: Hemoglobin 14.4, Activated Partial Thromboplast Time 41H, Lactic Acid Level 1.91 , Potassium Level 3.5L, Magnesium Level 1.5L, Troponin I 2.093*H, Albumin 2.5L 07/28/18 23:42: Glucometer 125H 07/29/18 03:30: White Blood Count 4.8, Red Blood Count 4.64, Hemoglobin 13.6, Hematocrit 42, Mean Corpuscular Volume 89, Mean Corpuscular Hemoglobin 29, Mean Corpuscular Hemoglobin Concent 33, Red Cell Distribution Width 15.8H, Platelet Count 237, Mean Platelet Volume 10.6H, Neutrophils (%) (Auto) 90H, Lymphocytes (%) (Auto) 6L, Monocytes (%) (Auto) 4, Eosinophils (%) (Auto) 0, Basophils (%) (Auto) 0, Neutrophils # (Auto) 4.3, Lymphocytes # (Auto) 0.3L, Monocytes # (Auto) 0.2, Eosinophils # (Auto) 0.0, Basophils # (Auto) 0.0, Blood Gas Puncture Site LEFT RADIAL, Blood Gas Patient Temperature 100.6, Arterial Blood pH 7.26*L, Arterial Blood Partial Pressure CO2 41, Arterial Blood Partial Pressure O2 81, Arterial Blood HCO3 18L, Arterial Blood Total CO2 18.9L, Arterial Blood Oxygen Saturation 92L, Arterial Blood Base Excess -7.8L, Glen Test YES-POS, Blood Gas Ventilator Setting YES, Blood Gas Inspired Oxygen 80%, Sodium Level 143, Potassium Level 4.4, Chloride Level 113H, Carbon Dioxide Level 14L, Anion Gap 16H, Blood Urea Nitrogen 31H, Creatinine 1.85H, Estimat Glomerular Filtration Rate 36, BUN/Creatinine Ratio 17, Glucose Level 126H, Calcium Level 7.4L, Phosphorus Level 3.5, Magnesium Level 2.1, Troponin I 3.963*H 07/29/18 04:06: Activated Partial Thromboplast Time 52H 07/29/18 04:22: Lactic Acid Level 2.00 07/29/18 07:28: Urine Color AMBERH, Urine Clarity VERY CLOUDYH, Urine pH 5, Urine Specific [place] 1.015L, Urine Protein 3+H, Urine Glucose (UA) 1+H, Urine Ketones 1+H, Urine Nitrite POSITIVEH, Urine Bilirubin NEGATIVE, Urine Urobilinogen 1, Urine Leukocyte Esterase 2+H, Urine RBC (Auto) 3+H, Urine RBC 2-5H, Urine WBC 2-5, Urine Squamous Epithelial Cells 2-5, Urine Crystals NONE, Urine Amorphous Sediment LARGE PEDRO URATESH, Urine Bacteria TRACE, Urine Casts NONE, Urine Mucus NEGATIVE, Urine Culture Indicated YES 07/29/18 10:34: Activated Partial Thromboplast Time 160*H 07/29/18 11:49: Glucometer 140H 07/29/18 12:54: White Blood Count 8.1, Red Blood Count 4.16L, Hemoglobin 12.4L, Hematocrit 38L, Mean Corpuscular Volume 90, Mean Corpuscular Hemoglobin 30, Mean Corpuscular Hemoglobin Concent 33, Red Cell Distribution Width 15.8H, Platelet Count 175, Mean Platelet Volume 10.7H, Neutrophils (%) (Auto) 88H, Lymphocytes (%) (Auto) 5L, Monocytes (%) (Auto) 6, Eosinophils (%) (Auto) 0, Basophils (%) (Auto) 0, Neutrophils # (Auto) 7.2, Lymphocytes # (Auto) 0.4L, Monocytes # (Auto) 0.5, Eosinophils # (Auto) 0.0, Basophils # (Auto) 0.0, Sodium Level 147H, Potassium Level 3.7, Carbon Dioxide Level 23, Anion Gap 13, Blood Urea Nitrogen 36H, Estimat Glomerular Filtration Rate 25, BUN/Creatinine Ratio 14, Glucose Level 159H, Calcium Level 7.1L, Phosphorus Level 3.8, Magnesium Level 1.3L Microbiology 07/25/18 MRSA Screen - Final, Complete MRSA not isolated Assessment/Plan Assessment/Plan Assess & Plan/Chief Complaint 1) NSTEMI - post surgical 2) NOEMI 3) Anion gap metabolic acidosis 4) UTI 5) Post-laporoscopic lysis of adhesions w/ complications of bowel perforation 6) Pneumothorax TAISHA CINTRON DO 07/30/18 1023: Subjective Date Seen by a Provider: Jul 29, 2018 Time Seen by a Provider: 14:13 Subjective/Events-last exam I saw pt with student. He was sedated on vent. Objective Exam Lungs: Other (decreased breaths and some scattered crackles) Abdomen: Other (decreased bowel sounds, incision intact with scant drainage) Extremities: Other (decreased pulse and slightly cool right leg) Assessment/Plan Assessment/Plan Assess & Plan/Chief Complaint Respiratory Failure Acute Renal failure S/P take back to OR for Enterotomy Pt was going down to photo lab specialist for suspected thrombosis of cardiac stent; had had a NSTEMI. Pt is on pressors and not doing very well unfortunately. LELE SMITH MEDICAL STUDENT Jul 29, 2018 14:13 TAISHA CINTRON DO Jul 30, 2018 10:23
--- NOTE | 2018-07-29 14:26 | Cardiology Progress Note ---
Cardiology SOAP Progress Note Subjective: Intubated ventilated. Objective: I&O/Vital Signs 07/29/18 07/29/18 07/29/18 07/29/18 03:00 03:40 04:00 04:00 Temp 100.6 Pulse 121 118 Resp 38 35 B/P (MAP) 119/68 (85) 108/50 (69) Pulse Ox 100 100 96 O2 Delivery Mechanical Ventilator Mechanical Ventilator Mechanical Ventilator O2 Flow Rate 80.00 80.00 FiO2 100 07/29/18 07/29/18 07/29/18 07/29/18 04:24 05:00 06:00 06:25 Pulse 122 125 126 Resp 37 44 34 39 B/P (MAP) 123/50 (74) 104/54 (71) Pulse Ox 100 100 100 98 O2 Delivery Mechanical Ventilator Mechanical Ventilator O2 Flow Rate 80.00 80.00 FiO2 80 60 07/29/18 07/29/18 07/29/18 07/29/18 06:41 07:00 07:00 07:21 Pulse 124 124 Resp 36 B/P (MAP) 119/51 (73) 112/56 Pulse Ox 95 O2 Delivery Mechanical Ventilator Mechanical Ventilator O2 Flow Rate 50.00 50.00 07/29/18 07/29/18 07/29/18 07/29/18 07:34 08:00 09:00 10:00 Temp 99.2 Pulse 126 125 128 130 Resp 36 37 37 37 B/P (MAP) 116/58 (77) 103/49 (67) 107/51 (69) Pulse Ox 97 96 94 O2 Delivery Mechanical Ventilator Mechanical Ventilator Mechanical Ventilator O2 Flow Rate 50.00 50.00 50.00 07/29/18 07/29/18 07/29/18 11:00 11:08 12:00 Pulse 124 125 Resp 12 40 27 B/P (MAP) 116/61 (79) 122/56 (78) Pulse Ox 98 97 O2 Delivery Mechanical Ventilator Mechanical Ventilator O2 Flow Rate 50.00 50.00 FiO2 40 07/29/18 00:00 Intake Total 3116 ml Output Total 545 ml Balance 2571 ml Weight (Pounds): 168 Weight (Ounces): 4.0 Weight (Calculated Kilograms): 76.693366 Constitutional: appears stated age; No apparent distress; well-developed, well- nourished, other (Intubated/ventilated) Respiratory: No accessory muscle use, No respiratory distress, No chest tender , No chest expansion is symmetric; chest is bilaterally symmetric; No lungs clear to percussion; lungs clear to auscultation; No crackles, No rhonchi, No rales, No stridor, No wheezing, No pleural rub; other (And intubated/ventilated. ) Cardiovascular: regular rate-rhythm; No irregularly irregular, No extra beats, No parasternal heave is noted, No JVD, No edema, No bradycardia, No tachycardia , No point of maximal impulse, No cardiac thrills are palpable; S1 and S2; No gallop/S3, No gallop/S4, No diastolic murmur, No systolic murmur, No friction rub, No click, No other Gastrointestional: No spleenomegaly; other (Recent surgery.) Extremities: No normal range of motion, No non-tender, No normal inspection, No pedal edema, No calf tenderness, No normal capillary refill, No pelvis stable , No calf tenderness, No inflammation, No pedal edema, No slow capillary refill , No swelling, No other, No abrasion, No clubbing, No cyanosis, No ecchymosis, No laceration, No no lower extremity edema bilateral, No significant edema, No tenderness, No wound Neurologic/Psychiatric: other (Intubated/ventilated.) Skin: No rash, No ulcerations Results/Procedures: Labs Laboratory Tests 07/28/18 14:40: White Blood Count 4.3, Red Blood Count 4.64, Hemoglobin 13.8, Hematocrit 41, Mean Corpuscular Volume 88, Mean Corpuscular Hemoglobin 30, Mean Corpuscular Hemoglobin Concent 34, Red Cell Distribution Width 15.1H, Platelet Count 169, Mean Platelet Volume 10.3, Prothrombin Time 15.2H, INR Comment 1.2, Activated Partial Thromboplast Time 24, Lactic Acid Level 1.18 07/28/18 14:54: Blood Gas Puncture Site LT RAD, Blood Gas Patient Temperature 97.3, Arterial Blood pH 7.32*L, Arterial Blood Partial Pressure CO2 39, Arterial Blood Partial Pressure O2 94H, Arterial Blood HCO3 19L, Arterial Blood Total CO2 20.4L, Arterial Blood Oxygen Saturation 95, Arterial Blood Base Excess -5.6L, Glen Test YES-POS, Blood Gas Ventilator Setting YES, Blood Gas Inspired Oxygen 100 4/21/19 17:27: Glucometer 155H 07/28/18 20:27: Hemoglobin 14.4, Activated Partial Thromboplast Time 41H, Lactic Acid Level 1.91 , Potassium Level 3.5L, Magnesium Level 1.5L, Troponin I 2.093*H, Albumin 2.5L 07/28/18 23:42: Glucometer 125H 07/29/18 03:30: White Blood Count 4.8, Red Blood Count 4.64, Hemoglobin 13.6, Hematocrit 42, Mean Corpuscular Volume 89, Mean Corpuscular Hemoglobin 29, Mean Corpuscular Hemoglobin Concent 33, Red Cell Distribution Width 15.8H, Platelet Count 237, Mean Platelet Volume 10.6H, Neutrophils (%) (Auto) 90H, Lymphocytes (%) (Auto) 6L, Monocytes (%) (Auto) 4, Eosinophils (%) (Auto) 0, Basophils (%) (Auto) 0, Neutrophils # (Auto) 4.3, Lymphocytes # (Auto) 0.3L, Monocytes # (Auto) 0.2, Eosinophils # (Auto) 0.0, Basophils # (Auto) 0.0, Blood Gas Puncture Site LEFT RADIAL, Blood Gas Patient Temperature 100.6, Arterial Blood pH 7.26*L, Arterial Blood Partial Pressure CO2 41, Arterial Blood Partial Pressure O2 81, Arterial Blood HCO3 18L, Arterial Blood Total CO2 18.9L, Arterial Blood Oxygen Saturation 92L, Arterial Blood Base Excess -7.8L, Glen Test YES-POS, Blood Gas Ventilator Setting YES, Blood Gas Inspired Oxygen 80%, Sodium Level 143, Potassium Level 4.4, Chloride Level 113H, Carbon Dioxide Level 14L, Anion Gap 16H, Blood Urea Nitrogen 31H, Creatinine 1.85H, Estimat Glomerular Filtration Rate 36, BUN/Creatinine Ratio 17, Glucose Level 126H, Calcium Level 7.4L, Phosphorus Level 3.5, Magnesium Level 2.1, Troponin I 3.963*H 07/29/18 04:06: Activated Partial Thromboplast Time 52H 07/29/18 04:22: Lactic Acid Level 2.00 07/29/18 07:28: Urine Color AMBERH, Urine Clarity VERY CLOUDYH, Urine pH 5, Urine Specific [place] 1.015L, Urine Protein 3+H, Urine Glucose (UA) 1+H, Urine Ketones 1+H, Urine Nitrite POSITIVEH, Urine Bilirubin NEGATIVE, Urine Urobilinogen 1, Urine Leukocyte Esterase 2+H, Urine RBC (Auto) 3+H, Urine RBC 2-5H, Urine WBC 2-5, Urine Squamous Epithelial Cells 2-5, Urine Crystals NONE, Urine Amorphous Sediment LARGE PEDRO URATESH, Urine Bacteria TRACE, Urine Casts NONE, Urine Mucus NEGATIVE, Urine Culture Indicated YES 07/29/18 10:34: Activated Partial Thromboplast Time 160*H 07/29/18 11:49: Glucometer 140H 07/29/18 12:54: White Blood Count 8.1, Red Blood Count 4.16L, Hemoglobin 12.4L, Hematocrit 38L, Mean Corpuscular Volume 90, Mean Corpuscular Hemoglobin 30, Mean Corpuscular Hemoglobin Concent 33, Red Cell Distribution Width 15.8H, Platelet Count 175, Mean Platelet Volume 10.7H, Neutrophils (%) (Auto) 88H, Lymphocytes (%) (Auto) 5L, Monocytes (%) (Auto) 6, Eosinophils (%) (Auto) 0, Basophils (%) (Auto) 0, Neutrophils # (Auto) 7.2, Lymphocytes # (Auto) 0.4L, Monocytes # (Auto) 0.5, Eosinophils # (Auto) 0.0, Basophils # (Auto) 0.0, Neutrophils % (Manual) 42, Lymphocytes % (Manual) 10, Monocytes % (Manual) 2, Eosinophils % (Manual) 0, Basophils % (Manual) 0, Metamyelocytes % 8, Band Neutrophils 36, Reactive Lymphocytes 2, Blood Morphology Comment NORMAL, Sodium Level 147H, Potassium Level 3.7, Chloride Level 111H, Carbon Dioxide Level 23, Anion Gap 13, Blood Urea Nitrogen 36H, Creatinine 2.51#H, Estimat Glomerular Filtration Rate 25, BUN /Creatinine Ratio 14, Glucose Level 159H, Calcium Level 7.1L, Phosphorus Level 3.8, Magnesium Level 1.3L Microbiology 07/25/18 MRSA Screen - Final, Complete MRSA not isolated A/P: Assessment/Dx: Perforated viscus, Post-abdominal surgery today, Non-STEMI, Possible cardiogenic Shock, Acute congestive heart failure Plan: Critically ill patient in shock. Unclear etiology of shock. Possible cardiogenic shock. Systolic blood pressure 105 on levophed. Bedside echocardiogram was nondiagnostic however LVEF was likely reduced. Pulmonary embolism cannot be ruled out. Non-STEMI: Abdominal surgery today, therefore with Dr. Landin's advise he started the patient on IV heparin. We will also give Plavix through the NG tube. Stent thrombosis cannot be ruled out since the patient had a drug- eluting stent in March 2018. The patient will require coronary angiography. Patient is intubated and ventilated. No family available to give consent. I have discussed with Dr. Landin, Dr. Sheikh and myself. Procedure is required urgently for non-ST elevation KS and possible cardiogenic shock, therefore it's an emergency consent. Acute systolic congestive heart failure: Elevated BNP. Acute kidney injury, likely ATN. Perforated viscus, defer to the surgery team. Ventilated patient, defer to Dr. Fairbanks. Thank you for your consultation. Please call me if you have any questions. Pati Cano MD, FACP, FACC, FSCAI, FHRS, CCDS Interventional Cardiology Cardiac Electrophysiology Vascular Medicine and Endovascular Interventions Focused Exam Lactate Level 07/28/18 14:40: Lactic Acid Level 1.18 07/28/18 20:27: Lactic Acid Level 1.91 07/29/18 04:22: Lactic Acid Level 2.00 Bret CANO MD Jul 29, 2018 2:26 pm
--- NOTE | 2018-07-29 15:12 | Coronary Angiography Report ---
Coronary Angiography Report DATE OF PROCEDURE: 07/29/18 INDICATION: NSTEMI, Shock. PREOPERATIVE DIAGNOSIS: NSTEMI, Shock. POSTOPERATIVE DIAGNOSIS: Patent coronaries. Severely reduced LV systolic dysfunction with normal LVEDP. HISTORY: This is a 73-year-old gentleman who has history of PCI in March 2018 Dr. Vences with a drug-eluting stent. He presented for laparoscopic abdominal surgery with small bowel perforation followed by severe respiratory distress and shock. He was intubated. Troponins were positive. EKG did not show any ST segment elevation or depression. Elevated creatinine. Patient required high dose of pressors. Therefore, the patient was urgently scheduled for coronary angiography. PROCEDURES PERFORMED: 1.Coronary angiography. 2.Left heart catheterization. COMPLICATIONS: None. SPECIMENS: None. ESTIMATED BLOOD LOSS: 10 mL ANESTHESIA: Conscious sedation ANTICOAGULATION: IV heparin CONTRAST: 28 ml. FLUOROSCOPY: 1.8 minutes. FLOUROSCOPY DOSE: [id number] mgy. PROCEDURE DETAILS: The patient is a 73 male and was brought to the cath lab manager after emergent consent. The patient was draped and prepped in the usual sterile fashion. Access was gained in the right femoral artery with a 6 [place] sheath. Coronary angiography and left heart catheterization was performed with a JR4 and JL4 catheter. FINDINGS: 1.Left main: Patent. 2.LAD: Patent stent in the proximal LAD. No significant disease. 3.Left circumflex artery: Patent. 4.RCA: Patent. 5.Left heart catheterization: Aortic pressure 95/50 mmHg. LV pressure 107/0 mmHg. LVEDP 14 mmHg. Severely reduced LV function. LVEF is 25 percent with severe hypokinesis of the anterior, apical and inferior wall. Good basal contractility. No gradient across the aortic valve. CONCLUSIONS: I have discussed at length with Dr. Landin and Dr. Fairbanks. Stent is patent with normal coronaries. Patient does have severely reduced LV systolic function however LVEDP is not significantly elevated. Patient's troponin could be due to severe systemic illness and congestive heart failure or he could have had a transient thrombus formation and the stent which resolved with IV heparin and Plavix given yesterday. However since the LVEDP is not elevated, I decided against an intra-aortic balloon pump. we will continue Plavix. The procedure was done on leave a 28 mL of contrast, however patient already has acute kidney injury and ATN due to shock. Pati Cano MD, FACP, FACC, [facility] Interventional Cardiology Bret CANO MD Jul 29, 2018 15:12
--- NOTE | 2018-07-29 17:05 | Diagnostic Imaging Report ---
INDICATION: Bilateral lower extremity edema. Bilateral lower extremity venous Doppler study was performed in the routine fashion with color flow Doppler and waveform analysis. FINDINGS: The common femoral veins, superficial femoral veins, popliteal veins and visualized portion of the tibial veins show normal compressibility and venous flow patterns. There is normal augmentation. IMPRESSION: No evidence of deep vein thrombosis in the major veins of both legs. Dictated by: Dictated on workstation # [id number]
[2018-07-29] MEDS ORDERED: NS (IVPB) 250 ML ONE (17:06)
[2018-07-29] MEDS ORDERED: NOREPINEPHRINE 4 MG/4 ML (LEVOPHED) AMP IV ONE (17:06)
[2018-07-29] MEDS ORDERED: ATROPINE INJECTION 1 MG/10 ML SYR (ABBOTT) ONE (17:58)
[2018-07-29] MEDS: NOREPINEPHRINE 8 MG in NS (IVPB) 250 ML IV SCH (21:30)
[2018-07-29 22:08] LABS: HEMOGLOBIN 10.5 G/DL (13.3-17.7); MEAN PLATELET VOLUME 10.1 FL (7.4-10.4); RED CELL DISTRIBUTION WIDTH 15.6 % (10.0-14.5); WHITE BLOOD COUNT 5.4 10^3/uL (4.3-11.0)
[2018-07-29 22:14] LABS: INR 1.7 (0.8-1.4); PROTHROMBIN TIME PATIENT 20.2 SEC (12.2-14.7)
[2018-07-29] MEDS ORDERED: HEParin 1000 UNIT/ML (10ML VIAL) FOR BOLUS IV SCH (22:15)
[2018-07-29] MEDS: HEParin DRIP 25000 UNIT/500ML 500 ML IV SCH (23:48)
[2018-07-30] VITALS (23 sets, daily range): BP systolic 83–153; BP diastolic 44–98
[2018-07-30] MEDS: inSUlin ASPART (NovoLOG) 1 UNIT/0.01 ML (CHARGE PER UNIT) SC SCH ×3 (00:34→12:50)
[2018-07-30] MEDS: RT-ALBUTEROL/IPRATROPIUM 3 ML (DUONEB) VIAL INH SCH ×3 (02:23→10:18)
[2018-07-30 03:45] LABS: ABG BASE EXCESS -0.2 MMOL/L (-2.5-2.5); ABG OXYGEN SATURATION 93 % (94-100); ABG PCO2 34 MMHG (35-45); ABG PH 7.45 (7.37-7.43); ABG PO2 74 MMHG (79-93); ABG TCO2 24.5 MMOL/L (21.0-31.0); ALLENS TEST YES-POS; INSPIRED O2 35%; PATIENT TEMP 97.6; VENTILATOR YES
[2018-07-30 03:45] LABS: BASOPHILS % (AUTO) 0 % (0-10); EOSINOPHILS % (AUTO) 0 % (0-10); HEMATOCRIT 33 % (40-54); HEMOGLOBIN 10.9 G/DL (13.3-17.7); LYMPHOCYTES # (AUTO) 0.5 X 10^3 (1.0-4.0); LYMPHOCYTES % (AUTO) 6 % (12-44); MEAN CORPUSCULAR HEMOGLOBIN 30 PG (25-34); MEAN CORPUSCULAR HGB CONC 34 G/DL (32-36); MEAN CORPUSCULAR VOLUME 88 FL (80-99); MEAN PLATELET VOLUME 10.2 FL (7.4-10.4); MONOCYTES # (AUTO) 0.4 X 10^3 (0.0-1.0); MONOCYTES % (AUTO) 5 % (0-12); NEUTROPHILS # (AUTO) 6.8 X 10^3 (1.8-7.8); NEUTROPHILS % (AUTO) 88 % (42-75); PLATELET COUNT 141 10^3/uL (130-400); RED CELL DISTRIBUTION WIDTH 15.3 % (10.0-14.5); WHITE BLOOD COUNT 7.6 10^3/uL (4.3-11.0)
[2018-07-30] MEDS: PIPERACILLIN/TAZOBACTAM (BULK) 4.5 GM in NS (IVPB) 100 ML IV SCH ×2 (03:48→09:58)
[2018-07-30] MEDS: PROPOFOL DRIP (ICU) 100 ML IV SCH ×2 (03:49→12:06)
[2018-07-30 04:01] LABS: CALCIUM 6.8 MG/DL (8.5-10.1); CREATININE SERUM 3.08 MG/DL (0.60-1.30); MAGNESIUM 1.8 MG/DL (1.8-2.4); POTASSIUM 2.8 MMOL/L (3.6-5.0)
[2018-07-30] MEDS: SODIUM BICARBONATE 8.4% VIAL 100 MEQ in D5 1/2 NS 1000 ML IV SOLUTION 1,000 ML IV SCH (04:16)
[2018-07-30] MEDS: NOREPINEPHRINE 4 MG in NS (IVPB) 250 ML IV SCH (04:26)
--- NOTE | 2018-07-30 05:00 | NUR ---
Dr. Cano informed by this RN that right lower extremity is cold, and unable to find pedal pulses with doppler, will await further orders. 0530 - Dr. Fiarbanks present on floor, this RN informed him about right lower extremity, order receive to get arterial bilateral lower extremity doppler.
[2018-07-30] MEDS: POTASSIUM CL 10MEQ/50ML IVPB 50 ML IV SCH ×5 (05:15→07:15)
[2018-07-30] MEDS ORDERED: POTASSIUM PHOSPHATE INJ 30 MM in NS (IVPB) 250 ML IV ONE (05:15)
[2018-07-30] MEDS: KCL 20 MEQ TAB (K-DUR) PO SCH (05:16)
[2018-07-30] MEDS: MAGNESIUM 1 GM/100 ML IVPB 100 ML IV SCH (05:17)
[2018-07-30] MEDS: HEParin DRIP 25000 UNIT/500ML 500 ML IV SCH (05:49)
--- NOTE | 2018-07-30 06:11 | Pulmonary Progress Note ---
Subjective Time Seen by a Provider: 07:17 Subjective/Events-last exam Sedated on vent Sepsis Event Evaluation Height, Weight, BMI Height: 6'1.00" Weight: 196lbs. 4.0oz. 89.363713mp; 22.2 BMI Method: Focused Exam Lactate Level 07/28/18 14:40: Lactic Acid Level 1.18 07/28/18 20:27: Lactic Acid Level 1.91 07/29/18 04:22: Lactic Acid Level 2.00 Exam Exam Vital Signs Date Time Temp Pulse Resp B/P (MAP) Pulse Ox O2 Delivery O2 Flow Rate FiO2 07/30/18 05:58 92 22 98 35 07/30/18 04:00 97.6 07/30/18 04:00 56 20 118/57 (77) 100 Mechanical Ventilator 35.00 112/60 (77) 07/30/18 04:00 Mechanical Ventilator 07/30/18 03:49 142/68 07/30/18 03:00 89 20 122/59 (80) 100 Mechanical Ventilator 35.00 119/62 (81) 07/30/18 02:24 89 22 100 35 07/30/18 02:00 89 19 118/52 (74) 100 Mechanical Ventilator 40.00 107/59 (75) 07/30/18 01:00 90 07/30/18 01:00 90 21 114/49 (70) 100 Mechanical Ventilator 40.00 112/57 (75) 07/30/18 00:00 96.8 07/29/18 23:59 Mechanical Ventilator 07/29/18 23:30 97 19 54/30 (38) 100 Mechanical Ventilator 40.00 61/35 (44) 07/29/18 23:15 93 23 99/45 (63) 100 Mechanical Ventilator 40.00 95/54 (68) 07/29/18 23:00 93 23 93/43 (60) 97 Mechanical Ventilator 40.00 91/51 (64) 07/29/18 22:30 83 25 98 40 07/29/18 22:00 74 25 227/92 (137) 100 Mechanical Ventilator 40.00 178/98 (124) 07/29/18 21:30 83 19 167/70 (102) 95 Mechanical Ventilator 40.00 134/58 (83) 07/29/18 21:00 95 22 108/52 (70) 99 Mechanical Ventilator 40.00 07/29/18 20:44 108/52 07/29/18 20:00 98 13 108/52 (70) 98 Mechanical Ventilator 40.00 07/29/18 20:00 97.7 07/29/18 20:00 Mechanical Ventilator 07/29/18 19:32 96 23 97 40 07/29/18 19:00 93 07/29/18 19:00 93 20 139/62 (87) 100 Mechanical Ventilator 40.00 07/29/18 18:25 103 20 104/51 (68) 100 Mechanical Ventilator 40.00 111/60 (77) 07/29/18 18:20 103 27 102/51 (68) 99 Mechanical Ventilator 40.00 115/61 (79) 07/29/18 18:15 104 24 98/49 (65) 99 Mechanical Ventilator 40.00 107/62 (77) 07/29/18 18:10 104 11 98/49 (65) 98 Mechanical Ventilator 40.00 104/62 (76) 07/29/18 18:05 102 31 121/61 (81) 98 Mechanical Ventilator 40.00 116/63 (80) 07/29/18 18:01 101 7 136/66 (89) 98 Mechanical Ventilator 40.00 129/70 (89) 07/29/18 18:00 101 30 148/68 (94) 99 Mechanical Ventilator 40.00 07/29/18 17:15 103 27 128/60 (82) 96 Mechanical Ventilator 40.00 07/29/18 17:00 108 25 59/37 (44) 96 Mechanical Ventilator 40.00 07/29/18 16:00 Mechanical Ventilator 07/29/18 16:00 98.2 07/29/18 13:03 123 07/29/18 12:00 96 Mechanical Ventilator 07/29/18 12:00 125 27 122/56 (78) 97 Mechanical Ventilator 50.00 07/29/18 12:00 97.6 07/29/18 11:08 124 40 98 40 07/29/18 11:00 12 116/61 (79) Mechanical Ventilator 50.00 07/29/18 10:00 130 37 107/51 (69) 94 Mechanical Ventilator 50.00 07/29/18 09:00 128 37 103/49 (67) 96 Mechanical Ventilator 50.00 07/29/18 08:00 125 37 116/58 (77) 97 Mechanical Ventilator 50.00 07/29/18 08:00 Mechanical Ventilator 07/29/18 07:34 99.2 126 36 07/29/18 07:21 112/56 07/29/18 07:00 124 36 119/51 (73) 95 Mechanical Ventilator 50.00 07/29/18 07:00 97.9 07/29/18 07:00 124 07/29/18 06:41 Mechanical Ventilator 50.00 07/29/18 06:25 126 39 98 60 I & O 07/30/18 07:00 Intake Total 4252 ml Output Total 650 ml Balance 3602 ml Height & Weight Height: 6'1.00" Weight: 196lbs. 4.0oz. 89.448356or; 22.2 BMI Method: General Appearance: Chronically ill, Other (sedated on vent) HEENT: PERRL/EOMI Neck: Normal Inspection, Non Tender Respiratory: Chest Non Tender, Accessory Muscle Use, Crackles, Decreased Breath Sounds, Respiratory Distress Cardiovascular: No Murmur, Tachycardia Gastrointestinal: distended, tenderness (diffusely peritoneal on exam) Extremity: Normal Capillary Refill, Normal Inspection, Slow Capillary Refill, Other (Rigt is cooler to touch then left with decreased pulses ) Skin: Cool, Damp, Mottled Lymphatic: No Adenopathy Results Lab Laboratory Tests 07/28/18 14:40 07/28/18 20:27 07/29/18 03:30 07/29/18 12:54 07/29/18 21:52 07/30/18 03:35 Assessment/Plan Assessment/Plan Acute respiratory failure - Doubt PE -Continue ventilator care -- venous dopplers are negative probable PVD - RLE is cooler then LLE -check arterial LE bilateral dopplers Iatrogenic perforated Viscus S/p surgery -Continue Zosyn and Eraxis NSTEMI s/p heart cath yesterday -EF 25% -Dr. Cano is consulted -Heparin gtt per Dr. Cano Acute renal failure with metabolic acidosis -Check Bladder pressures -Continue to monitor close. Pt may need to be transferred for nephrology. -D/C bicarb gtt Systolic CHF with EF 25% -Will try to change Levophed to Dopamine gtt if Pt does not become tachycardic Hypotension r/o cardiogenic shock vs hypovolemia -Give a liter of IVF -Levophed - change to Dopamine -Start Solucortef Hypernatremia/hyperchloremia -Change IVF to 1/2 NS Hypokalemia/hypophos -Replace Anemia -Monitor Prognosis is guarded to poor. Pt may need to be transferred for nephrology support. Will continue to monitor close for now. CHRISTOPHER FARNSWORTH DO Jul 30, 2018 06:11
[2018-07-30] MEDS ORDERED: NS IV 1000 ML 1,000 ML ONE (06:19)
--- NOTE | 2018-07-30 07:25 | Diagnostic Imaging Report ---
EXAM: CHEST 1 VIEW, AP/PA ONLY INDICATION: Dyspnea. COMPARISON: Chest radiograph 07/29/2018. FINDINGS: Cardiomegaly. Perihilar and bibasilar atelectasis. No definite pleural effusion or pneumothorax. ETT tip midway between the level of the clavicles and kaylan. NG tube tip overlying the stomach with side-port in the region of the GE junction. Right IJ CVC tip upper SVC. No acute osseous findings. IMPRESSION: 1. Stable cardiomegaly. 2. Increasing perihilar and bibasilar atelectasis. 3. Support lines in stable position. This includes the side port of the NG tube in the region of the GE junction which could be advanced. Dictated by: Dictated on workstation # [id number]
[2018-07-30] MEDS ORDERED: DOPamine DRIP 250 ML IV SCH (07:30)
[2018-07-30] MEDS: LACTATED RINGERS 1,000 ML IV SCH (07:35)
[2018-07-30] MEDS: HYDROCORTISONE 100 MG/2 ML (Solu-CORTEF) VIAL IV SCH ×2 (08:23→14:12)
[2018-07-30] MEDS: 1/2 NS IV SOLUTION 1,000 ML IV SCH ×2 (08:24→16:45)
[2018-07-30] MEDS: PANTOPRAZOLE 40 MG (PROTONIX) VIAL IV SCH (08:25)
[2018-07-30] MEDS: meTOproloL SUCCINATE 50 MG (TOPROL XL) TAB PO SCH (08:26)
[2018-07-30] MEDS: MIDAZOLAM INJECTION FOR DRIPS 50 MG in NS (IVPB) 90 ML IV SCH (08:27)
[2018-07-30] MEDS ORDERED: CLOPIDOGREL 75 MG (PLAVIX) TABLET PO SCH (09:00)
[2018-07-30] MEDS ORDERED: ANIDULAFUNGIN INJECTION 100 MG in NS (IVPB) 100 ML IV SCH (09:00)
[2018-07-30] MEDS ORDERED: NS (IVPB) 250 ML ONE (09:42)
[2018-07-30] MEDS ORDERED: NOREPINEPHRINE 4 MG/4 ML (LEVOPHED) AMP IV ONE (09:43)
[2018-07-30] MEDS: NOREPINEPHRINE 8 MG in NS (IVPB) 250 ML IV SCH ×2 (09:49→14:30)
--- NOTE | 2018-07-30 10:29 | Progress Note ---
Subjective Time Seen by a Provider: 09:06 Subjective/Events-last exam Pt seen sedated on vent, still requiring Levophed and Creatnine is getting worse. Review of Systems General: No Chills, No Night Sweats Genitourinary: Other (fitzpatrick in place) pt sedated unable to get more ROS Focused Exam Lactate Level 07/28/18 14:40: Lactic Acid Level 1.18 07/28/18 20:27: Lactic Acid Level 1.91 07/29/18 04:22: Lactic Acid Level 2.00 Objective Exam Vital Signs Date Time Temp Pulse Resp B/P (MAP) Pulse Ox O2 Delivery O2 Flow Rate FiO2 07/30/18 09:17 85 07/30/18 09:00 113 07/30/18 09:00 113 24 108/52 (70) 96 Mechanical Ventilator 35.00 140/98 (112) 07/30/18 08:27 86 07/30/18 08:25 85 07/30/18 08:00 Mechanical Ventilator 07/30/18 08:00 89 23 110/59 (76) 99 Mechanical Ventilator 35.00 121/68 (85) 07/30/18 07:02 80 07/30/18 07:00 81 22 124/59 (80) 95 Mechanical Ventilator 35.00 129/62 (84) 07/30/18 06:15 85 21 124/58 (80) 98 Mechanical Ventilator 35.00 115/63 (80) 07/30/18 06:00 92 21 83/44 (57) 98 Mechanical Ventilator 35.00 85/49 (61) 07/30/18 05:58 92 22 98 35 07/30/18 05:00 87 20 123/56 (78) 100 Mechanical Ventilator 35.00 117/65 (82) 07/30/18 04:00 97.6 07/30/18 04:00 56 20 118/57 (77) 100 Mechanical Ventilator 35.00 112/60 (77) 07/30/18 04:00 Mechanical Ventilator 07/30/18 03:49 142/68 07/30/18 03:00 89 20 122/59 (80) 100 Mechanical Ventilator 35.00 119/62 (81) 07/30/18 02:24 89 22 100 35 07/30/18 02:00 89 19 118/52 (74) 100 Mechanical Ventilator 40.00 107/59 (75) 07/30/18 01:00 90 07/30/18 01:00 90 21 114/49 (70) 100 Mechanical Ventilator 40.00 112/57 (75) 07/30/18 00:00 96.8 07/29/18 23:59 Mechanical Ventilator 07/29/18 23:30 97 19 54/30 (38) 100 Mechanical Ventilator 40.00 61/35 (44) 07/29/18 23:15 93 23 99/45 (63) 100 Mechanical Ventilator 40.00 95/54 (68) 07/29/18 23:00 93 23 93/43 (60) 97 Mechanical Ventilator 40.00 91/51 (64) 07/29/18 22:30 83 25 98 40 07/29/18 22:00 74 25 227/92 (137) 100 Mechanical Ventilator 40.00 178/98 (124) 07/29/18 21:30 83 19 167/70 (102) 95 Mechanical Ventilator 40.00 134/58 (83) 07/29/18 21:00 95 22 108/52 (70) 99 Mechanical Ventilator 40.00 07/29/18 20:44 108/52 07/29/18 20:00 98 13 108/52 (70) 98 Mechanical Ventilator 40.00 07/29/18 20:00 97.7 07/29/18 20:00 Mechanical Ventilator 07/29/18 19:32 96 23 97 40 07/29/18 19:00 93 07/29/18 19:00 93 20 139/62 (87) 100 Mechanical Ventilator 40.00 07/29/18 18:25 103 20 104/51 (68) 100 Mechanical Ventilator 40.00 111/60 (77) 07/29/18 18:20 103 27 102/51 (68) 99 Mechanical Ventilator 40.00 115/61 (79) 07/29/18 18:15 104 24 98/49 (65) 99 Mechanical Ventilator 40.00 107/62 (77) 07/29/18 18:10 104 11 98/49 (65) 98 Mechanical Ventilator 40.00 104/62 (76) 07/29/18 18:05 102 31 121/61 (81) 98 Mechanical Ventilator 40.00 116/63 (80) 07/29/18 18:01 101 7 136/66 (89) 98 Mechanical Ventilator 40.00 129/70 (89) 07/29/18 18:00 101 30 148/68 (94) 99 Mechanical Ventilator 40.00 07/29/18 17:15 103 27 128/60 (82) 96 Mechanical Ventilator 40.00 07/29/18 17:00 108 25 59/37 (44) 96 Mechanical Ventilator 40.00 07/29/18 16:00 Mechanical Ventilator 07/29/18 16:00 98.2 07/29/18 13:03 123 07/29/18 12:00 96 Mechanical Ventilator 07/29/18 12:00 125 27 122/56 (78) 97 Mechanical Ventilator 50.00 07/29/18 12:00 97.6 07/29/18 11:08 124 40 98 40 07/29/18 11:00 12 116/61 (79) Mechanical Ventilator 50.00 I & O 07/30/18 07:00 Intake Total 4352 ml Output Total 950 ml Balance 3402 ml Capillary Refill : Greater Than 3 Seconds General Appearance: Chronically ill, Other (sedated on vent) HEENT: PERRL/EOMI Respiratory: Accessory Muscle Use, Crackles, Decreased Breath Sounds, Respiratory Distress Cardiovascular: No Murmur, Tachycardia Gastrointestinal: distended (slightly), other (icnision is intact with scant drainage, no erythema around incision) Extremity: Slow Capillary Refill, Other (Right leg is cool to touch, mottled and cannot palpate pulse (I'm told they get one with doppler) - this appears worse than yesterday and is same side they did cath from, left is warm and swollen ) Skin: Cool, Damp Results Lab Laboratory Tests 07/29/18 10:34: Activated Partial Thromboplast Time 160*H 07/29/18 11:49: Glucometer 140H 07/29/18 12:54: White Blood Count 8.1, Red Blood Count 4.16L, Hemoglobin 12.4L, Hematocrit 38L, Mean Corpuscular Volume 90, Mean Corpuscular Hemoglobin 30, Mean Corpuscular Hemoglobin Concent 33, Red Cell Distribution Width 15.8H, Platelet Count 175, Mean Platelet Volume 10.7H, Neutrophils (%) (Auto) 88H, Lymphocytes (%) (Auto) 5L, Monocytes (%) (Auto) 6, Eosinophils (%) (Auto) 0, Basophils (%) (Auto) 0, Neutrophils # (Auto) 7.2, Lymphocytes # (Auto) 0.4L, Monocytes # (Auto) 0.5, Eosinophils # (Auto) 0.0, Basophils # (Auto) 0.0, Neutrophils % (Manual) 42, Lymphocytes % (Manual) 10, Monocytes % (Manual) 2, Eosinophils % (Manual) 0, Basophils % (Manual) 0, Metamyelocytes % 8, Band Neutrophils 36, Reactive Lymphocytes 2, Blood Morphology Comment NORMAL, Sodium Level 147H, Potassium Level 3.7, Chloride Level 111H, Carbon Dioxide Level 23, Anion Gap 13, Blood Urea Nitrogen 36H, Creatinine 2.51#H, Estimat Glomerular Filtration Rate 25, BUN /Creatinine Ratio 14, Glucose Level 159H, Calcium Level 7.1L, Phosphorus Level 3.8, Magnesium Level 1.3L 07/29/18 17:00: Activated Partial Thromboplast Time 53H 07/29/18 17:28: Glucometer 257H 07/29/18 21:52: White Blood Count 5.4, Red Blood Count 3.59L, Hemoglobin 10.5L, Hematocrit 32L, Mean Corpuscular Volume 89, Mean Corpuscular Hemoglobin 29, Mean Corpuscular Hemoglobin Concent 33, Red Cell Distribution Width 15.6H, Platelet Count 132, Mean Platelet Volume 10.1, Prothrombin Time 20.2H, INR Comment 1.7H, Activated Partial Thromboplast Time 45H 07/29/18 23:54: Glucometer 326H 07/30/18 03:35: White Blood Count 7.6, Red Blood Count 3.70L, Hemoglobin 10.9L, Hematocrit 33L, Mean Corpuscular Volume 88, Mean Corpuscular Hemoglobin 30, Mean Corpuscular Hemoglobin Concent 34, Red Cell Distribution Width 15.3H, Platelet Count 141, Mean Platelet Volume 10.2, Activated Partial Thromboplast Time 191*H, Neutrophils (%) (Auto) 88H, Lymphocytes (%) (Auto) 6L, Monocytes (%) (Auto) 5, Eosinophils (%) (Auto) 0, Basophils (%) (Auto) 0, Neutrophils # (Auto) 6.8, Lymphocytes # (Auto) 0.5L, Monocytes # (Auto) 0.4, Eosinophils # (Auto) 0.0, Basophils # (Auto) 0.0, Sodium Level 147H, Potassium Level 2.8L, Chloride Level 110H, Carbon Dioxide Level 24, Anion Gap 13, Blood Urea Nitrogen 40H, Creatinine 3.08#H, Estimat Glomerular Filtration Rate 20, BUN/Creatinine Ratio 13, Glucose Level 267H, Calcium Level 6.8L, Phosphorus Level 2.0L, Magnesium Level 1.8, Triglycerides Level 61 07/30/18 03:40: Blood Gas Puncture Site LEFT RADIAL, Blood Gas Patient Temperature 97.6, Arterial Blood pH 7.45H, Arterial Blood Partial Pressure CO2 34L, Arterial Blood Partial Pressure O2 74L, Arterial Blood HCO3 23, Arterial Blood Total CO2 24.5, Arterial Blood Oxygen Saturation 93L, Arterial Blood Base Excess -0.2, Glen Test YES-POS, Blood Gas Ventilator Setting YES, Blood Gas Inspired Oxygen 35% Microbiology 07/28/18 Gram Stain - Final, Resulted 07/28/18 Sputum Culture - Preliminary, Resulted Gram Negative Bacillus 1 Assessment/Plan Assessment/Plan Assessment/Plan Respiratory Failure Acute Renal failure S/P take back to OR for Enterotomy Pt unfortunately is still requiring levophed and Creatnine is getting worse. Cardiac Cath showed patent vessels but heart not filling enough. Abdomen is stable right now but he is starting to lose function in more and more systems; which is a bad sign. He renal failure, respiratory failure and cardiac failure. His prognosis is poor and we are attempting to call the assisted living facility to find next of kin, POA or living will, etc. TAISHA CINTRON DO Jul 30, 2018 10:29
--- NOTE | 2018-07-30 14:06 | NUR ---
CM/SS, respond to consult in an attempt to locate possible family members. Patient has established residency with [facility] in [place]. Director there, Dori Fontanez, has been exploring all possible leads for family. They believe he has a son and a daughter, they may have located the son, Pino Larsen Jr., through [employer]. They have sent private message and are waiting on response. Patient has a cell and an iPad but both are password protected so they have no access. He apparently has a granddaughter that he communicates with frequently via iPad. Dori found the name of a former girlfriend "Korin" from [place] and she called her with no answer and no voice mail. Dori sent her a text with hope for possible response. [facility] staff indicate patient's spouse about 5 years ago. Since he had resided with [facility] prior to [place], chart writer reached out to them as well as to [facility] regarding spouse name with the intent to search for obit and possible family members. Neither were able to produce a spouse's name. Patient has spouse's urn in his room at [facility] but staff say it has no identifiable markings, names, dates. [facility] [place] staff will continue to search for family and will provide contact information immediately for any success. Director Of Architecture instructed them to update ICU staff directly any time day/night with new information. Will continue to follow and assist.
--- NOTE | 2018-07-30 14:30 | Progress Note-Hospitalist ---
Progress Note Progress Notes/Assess & Plan Date Seen 07/30/18 Time Seen by Provider: 14:28 Assessment & Plan The patient underwent laparotomy on 07/28 and was found to have a perforation at the site of a previous anastomosis. He remains on the ventilator. He is sedated. His vital signs appear stable. Physical exam: Breath sounds are clear on ventilation. CV is regular. Impression: Perforation and small intestine 2.peritonitis secondary to number 1. Plan: Focused Exam Lactate Level 07/28/18 14:40: Lactic Acid Level 1.18 07/28/18 20:27: Lactic Acid Level 1.91 07/29/18 04:22: Lactic Acid Level 2.00 CARLOS CORMIER MD Jul 30, 2018 14:30
[2018-07-30] MEDS ORDERED: LACTATED RINGERS 1,000 ML IV ONE (14:45)
--- NOTE | 2018-07-30 15:09 | Diagnostic Imaging Report ---
PROCEDURE: US Bilateral lower extremity arterial. TECHNIQUE: Multiple real-time grayscale images are obtained through both lower extremity arterial systems with color Doppler imaging and color Doppler spectral analysis. INDICATION: Cold right foot. FINDINGS: The left common femoral as well as the superficial femoral and popliteal arteries demonstrate biphasic waveforms with normal velocities. Left posterior tibial artery at the ankle is monophasic and demonstrates normal velocity. Dorsalis pedis is also monophasic. Anterior tibial artery is biphasic. No occlusion in the left lower extremity is identified. The right common femoral artery demonstrates triphasic waveforms and shows normal velocity. Profunda femoris is also triphasic and unremarkable. There appears to be a stent in the right superficial femoral artery. Right superficial femoral artery does appear to be occluded in the proximal, mid and distal aspects, however, there does appear to be reconstitution of the distal right SFA by collaterals. Monophasic flow in the reconstituted distal right SFA is seen with dampened velocities of 21 cm/s. Popliteal artery also is monophasic and dampened at 20 cm/s. No identifiable flow in the posterior tibial artery at the ankle is identified. No flow is seen within the dorsalis pedis artery. There is monophasic flow in the anterior tibial artery which is dampened at 11 cm/s. IMPRESSION: 1. Unremarkable left lower extremity arterial system apart from monophasic waveforms in the small vessels below the knee. No occlusion on the left is identified. 2. Abnormal right lower extreme arterial Doppler demonstrating occlusion of the right SFA with reconstitution distally. No identifiable flow at the ankle is seen within the posterior tibial or dorsalis pedis arteries. There is dampened monophasic flow in the reconstituted distal right SFA, popliteal and proximal right anterior tibial artery. Dictated by: Dictated on workstation # [id number]
--- NOTE | 2018-07-30 15:37 | NUR ---
Daughter in law Danielle Larsen called to let hospital know that she is Pino's dpoa and he has a DNR in place. She plans to locate paperwork and fax information to hospital for records. information is as follows: Danielle Larsen [phone]. environmental services coordinator notified and information for contact given to Francy Stephens
--- NOTE | 2018-07-30 16:02 | NUR ---
CM/VERONICA. YANG Santos Chava called justowriter operator. She is currently searching for patient's legal documents at her home, and/or at his two previous placements in nursing homes in [facility]. She does not have the documents thus far but does understand the importance of getting those to us as soon as possible. They will inform Unit RN of new password: [id number] Patient's daughter is Gloria Barlow (Becky) and she lives in or near [place], [place]. Danielle has been updating her and we created the password so that Rosalba can call hospital direct and get updates on her father. Danielle/family still have prognosis and care plan questions, justowriter operator recommended she pose those to unit RN and that perhaps an involved physician could better update them so they could make informed decisions.
--- NOTE | 2018-07-30 17:35 | NUR ---
Call from Dr Lawrence. Spoke to daughter Gloria sheppard to discuss pts whishes. sergio tells dr lawrence the pt would not want to remain on the vent or be shipped away for further care. dr lawrence is making pt a dnr and changing him to comfort care per family request. this nurse was witness to conversation between Alee YUSUF and pt's daughter. daughter understands that pt may not live long with ventilator removed and pt being made comfort care. Gloria will make arrangements with home in [place] where family resides.
--- NOTE | 2018-07-30 17:38 | Cardiology Progress Note ---
Cardiology SOAP Progress Note Subjective: Intubated/ventilated. Objective: I&O/Vital Signs 07/30/18 07/30/18 07/30/18 07/30/18 05:58 06:00 06:15 07:00 Pulse 92 92 85 81 Resp 22 21 21 22 B/P (MAP) 83/44 (57) 124/58 (80) 124/59 (80) 85/49 (61) 115/63 (80) 129/62 (84) Pulse Ox 98 98 98 95 O2 Delivery Mechanical Ventilator Mechanical Ventilator Mechanical Ventilator O2 Flow Rate 35.00 35.00 35.00 FiO2 35 07/30/18 07/30/18 07/30/18 07/30/18 07:02 08:00 08:00 08:25 Pulse 80 89 85 Resp 23 B/P (MAP) 110/59 (76) 121/68 (85) Pulse Ox 99 O2 Delivery Mechanical Ventilator Mechanical Ventilator O2 Flow Rate 35.00 07/30/18 07/30/18 07/30/18 07/30/18 08:27 09:00 09:00 09:17 Pulse 86 113 113 85 Resp 24 B/P (MAP) 108/52 (70) 140/98 (112) Pulse Ox 96 O2 Delivery Mechanical Ventilator O2 Flow Rate 35.00 07/30/18 07/30/18 07/30/18 07/30/18 10:00 10:18 11:00 11:24 Temp 98.0 Pulse 89 87 100 Resp 20 20 18 B/P (MAP) 116/55 (75) 118/53 (74) 132/72 (92) 114/66 (82) Pulse Ox 100 100 94 O2 Delivery Mechanical Ventilator Mechanical Ventilator O2 Flow Rate 35.00 35.00 FiO2 35 07/30/18 07/30/18 07/30/18 07/30/18 12:00 12:00 12:06 12:24 Temp 98.0 Pulse 96 97 95 Resp 16 18 B/P (MAP) 118/56 (76) 117/68 117/68 (84) Pulse Ox 95 94 O2 Delivery Mechanical Ventilator Mechanical Ventilator Mechanical Ventilator O2 Flow Rate 35.00 35.00 07/30/18 07/30/18 07/30/18 07/30/18 13:00 14:00 14:11 15:00 Pulse 93 90 90 96 Resp 41 25 24 15 B/P (MAP) 135/68 (90) 153/80 (104) 137/69 (91) 119/70 (86) Pulse Ox 97 96 93 94 O2 Delivery Mechanical Ventilator Mechanical Ventilator Mechanical Ventilator O2 Flow Rate 35.00 35.00 35.00 FiO2 35 07/30/18 07/30/18 07/30/18 07/30/18 15:37 16:00 16:49 17:00 Temp 97.2 Pulse 87 96 Resp 22 17 B/P (MAP) 136/70 (92) 125/53 (77) Pulse Ox 93 98 O2 Delivery Mechanical Ventilator Mechanical Ventilator Mechanical Ventilator O2 Flow Rate 35.00 35.00 07/30/18 00:00 Intake Total 3100 ml Output Total 800 ml Balance 2300 ml Weight (Pounds): 196 Weight (Ounces): 4.0 Weight (Calculated Kilograms): 89.584628 Constitutional: appears stated age; No apparent distress; well-developed, well- nourished, other (Intubated/ventilated) Respiratory: No accessory muscle use, No respiratory distress, No chest tender , No chest expansion is symmetric; chest is bilaterally symmetric; No lungs clear to percussion; lungs clear to auscultation; No crackles, No rhonchi, No rales, No stridor, No wheezing, No pleural rub; other (And intubated/ventilated. ) Cardiovascular: regular rate-rhythm; No irregularly irregular, No extra beats, No parasternal heave is noted, No JVD, No edema, No bradycardia, No tachycardia , No point of maximal impulse, No cardiac thrills are palpable; S1 and S2; No gallop/S3, No gallop/S4, No diastolic murmur, No systolic murmur, No friction rub, No click, No other Gastrointestional: No spleenomegaly; other (Recent surgery.) Extremities: No normal range of motion, No non-tender, No normal inspection, No pedal edema, No calf tenderness, No normal capillary refill, No pelvis stable , No calf tenderness, No inflammation, No pedal edema, No slow capillary refill , No swelling, No other, No abrasion, No clubbing, No cyanosis, No ecchymosis, No laceration, No no lower extremity edema bilateral, No significant edema, No tenderness, No wound Neurologic/Psychiatric: other (Intubated/ventilated.) Skin: No rash, No ulcerations Results/Procedures: Labs Laboratory Tests 07/29/18 21:52: White Blood Count 5.4, Red Blood Count 3.59L, Hemoglobin 10.5L, Hematocrit 32L, Mean Corpuscular Volume 89, Mean Corpuscular Hemoglobin 29, Mean Corpuscular Hemoglobin Concent 33, Red Cell Distribution Width 15.6H, Platelet Count 132, Mean Platelet Volume 10.1, Prothrombin Time 20.2H, INR Comment 1.7H, Activated Partial Thromboplast Time 45H 07/29/18 23:54: Glucometer 326H 07/30/18 03:35: White Blood Count 7.6, Red Blood Count 3.70L, Hemoglobin 10.9L, Hematocrit 33L, Mean Corpuscular Volume 88, Mean Corpuscular Hemoglobin 30, Mean Corpuscular Hemoglobin Concent 34, Red Cell Distribution Width 15.3H, Platelet Count 141, Mean Platelet Volume 10.2, Activated Partial Thromboplast Time 191*H, Neutrophils (%) (Auto) 88H, Lymphocytes (%) (Auto) 6L, Monocytes (%) (Auto) 5, Eosinophils (%) (Auto) 0, Basophils (%) (Auto) 0, Neutrophils # (Auto) 6.8, Lymphocytes # (Auto) 0.5L, Monocytes # (Auto) 0.4, Eosinophils # (Auto) 0.0, Basophils # (Auto) 0.0, Sodium Level 147H, Potassium Level 2.8L, Chloride Level 110H, Carbon Dioxide Level 24, Anion Gap 13, Blood Urea Nitrogen 40H, Creatinine 3.08#H, Estimat Glomerular Filtration Rate 20, BUN/Creatinine Ratio 13, Glucose Level 267H, Calcium Level 6.8L, Phosphorus Level 2.0L, Magnesium Level 1.8, Triglycerides Level 61 07/30/18 03:40: Blood Gas Puncture Site LEFT RADIAL, Blood Gas Patient Temperature 97.6, Arterial Blood pH 7.45H, Arterial Blood Partial Pressure CO2 34L, Arterial Blood Partial Pressure O2 74L, Arterial Blood HCO3 23, Arterial Blood Total CO2 24.5, Arterial Blood Oxygen Saturation 93L, Arterial Blood Base Excess -0.2, Glen Test YES-POS, Blood Gas Ventilator Setting YES, Blood Gas Inspired Oxygen 35% 07/30/18 11:20: Activated Partial Thromboplast Time 64H 07/30/18 11:22: Glucometer 141H 07/30/18 17:15: Microbiology 07/29/18 Blood Culture - Preliminary, Resulted No growth 07/28/18 Gram Stain - Final, Resulted 07/28/18 Sputum Culture - Preliminary, Resulted Gram Negative Bacillus 1 07/29/18 Urine Culture - Final, Complete NO GROWTH A/P: Assessment/Dx: Perforated viscus, Post-abdominal surgery today, Non-STEMI, Possible cardiogenic Shock, Acute congestive heart failure Plan: Critically ill patient in shock. Unclear etiology of shock. Possible cardiogenic shock. Systolic blood pressure 105 on levophed. Bedside echocardiogram was nondiagnostic however LVEF was likely reduced. Pulmonary embolism cannot be ruled out. Bilateral lower extremity venous Dopplers was negative. Non-STEMI: Coronary angiography done 07/29/2018 which shows patent stent in the LAD and normal coronaries. Reduced LV systolic function with EF of 30 percent. LVEDP of 15. With low LVEDP suggest volume depletion rather than volume overload. Intra-aortic balloon pump was not placed. PAD with occluded right SFA and reconstitution with poor perfusion to the right lower extremity. Single-vessel runoff below the knee on arterial ultrasound. Options for revascularization include open vascular surgery vs percutaneous intervention which will require further contrast, Dr. Vences to take over care tomorrow morning. I will defer to Dr. Vences, Dr. Fairbanks and the primary team for further cardiovascular care. Acute systolic congestive heart failure: Elevated BNP. Acute kidney injury, likely ATN due to shock. Worsening kidney function. May require dialysis. Perforated viscus, defer to the surgery team. Ventilated patient, defer to Dr. Fairbanks. Thank you for your consultation. Please call me if you have any questions. Pati Cano MD, FACP, FACC, FSCAI, FHRS, CCDS Interventional Cardiology Cardiac Electrophysiology Vascular Medicine and Endovascular Interventions Focused Exam Lactate Level 07/28/18 14:40: Lactic Acid Level 1.18 07/28/18 20:27: Lactic Acid Level 1.91 07/29/18 04:22: Lactic Acid Level 2.00 Bret CANO MD Jul 30, 2018 5:38 pm
--- NOTE | 2018-07-30 17:56 | NUR ---
1725 THIS RN SPOKE TO PT'S DAUGHTER KARI, NEXT OF KIN, SHE VERBALIZES UNDERSTANDING OF SEVERITY OF PT'S CONDITION AFTER SPEAKING WITH DR CINTRON. KARI WANTS PT TO BE MADE COMFORT MEASURES ONLY AND VERBALIZES THAT PT WILL NOT SUSTAIN LIVING WITHOUT THE NEED FOR MEDICATIONS AND VENTILATOR. 1735 FABIAN DIRECTOR OF [facility] STATES THAT SHE HAS SPOKEN TO KARI AND HER NURSING STAFF TO COME BE WITH PATIENT. 1730 ECONOMICS DEPARTMENT CHAIR CONTACTED DR FARNSWORTH MADE AWARE OF NEW DIRECTION OF CARE AND NEW ORDERS FOR COMFORT CARE RECEIVED.
[2018-07-30] MEDS ORDERED: LORazepam INJ 2 MG/ML (ATIVAN) VIAL ONE (18:14)
[2018-07-30] MEDS ORDERED: LORazepam INJ 2 MG/ML (ATIVAN) VIAL IVP PRN (18:15)
--- NOTE | 2018-07-30 18:19 | NUR ---
180 ALL MEDICATION DRIP'S STOPPED, 1809 RESTRAINTS REMOVED, INTERMEDIATE STAFF IN WITH PATIENT.
[2018-07-30] MEDS: HYDROmorphone 2 MG/ML VIAL (DILAUDID) IVP PRN (18:27)
--- NOTE | 2018-07-30 18:29 | NUR ---
1823 PT EXTUBATED ATIVAN AND DILAUDID GIVEN PRIOR TO EXTUBATION.
[2018-07-30] MEDS ORDERED: SCOPOLAMINE 1.5 MG (TRANSDERM-SCOP) PATCH TD NR (18:30)
[2018-07-30] MEDS ORDERED: ATROPINE 1% OPHTHALMIC SOLN 2 ML SL PRN (18:30)
[2018-07-30] MEDS ORDERED: ACETAMINOPHEN 650 MG SUPP (TYLENOL) PR PRN (18:45)
[2018-07-30] MEDS ORDERED: PROMETHAZINE INJ 25 MG/ML (PHENERGAN) AMP IVP PRN (18:45)
[2018-07-30] MEDS ORDERED: GLYCOPYRROLATE 0.2 MG/ML (ROBINUL) 2 ML VIAL IV PRN (18:45)
[2018-07-30] MEDS ORDERED: BISACODYL 10 MG SUPP (DULCOLAX) PR PRN (18:45)
[2018-07-30] MEDS ORDERED: SALIVA STIMULANT MOUTH SPRAY (BIOTENE) 1.5 OZ MM PRN (18:45)
[2018-07-30] MEDS ORDERED: ONDANSETRON 4 MG/2 ML (SDV) Z0FRAN IVP PRN (18:45)
[2018-07-30] MEDS ORDERED: ARTIFICAL TEARS 0.4 ML UNIT DOSE (REFRESH PLUS) OU PRN (18:45)
[2018-07-31] MEDS: HYDROmorphone 2 MG/ML VIAL (DILAUDID) IVP PRN ×2 (04:01→07:15)
[2018-07-31] MEDS: LORazepam INJ 2 MG/ML (ATIVAN) VIAL IVP PRN ×2 (06:01→07:15)
--- NOTE | 2018-07-31 07:41 | NUR ---
Upon entering room for morning assessment after report, Lightout Examiner RN in room listening for patient's heartbeat. This RN, acted as 2nd witness and listened for heart tones but there were none. Aystole on Monitor. No signs of breathing. TOD: 1046 Will notify family.
--- NOTE | 2018-07-31 07:57 | NUR ---
0750 Attempted to notify [place] from which patient was residing prior to hospitalization. No answer, left voicemail. [phone] Spoke with Gloria tinsley, and notified her of patient's passing. Daughter is attempting to figure out which Home body will be picked up by, but she does not know at this time and will phone us back as soon as possible.
--- NOTE | 2018-07-31 08:25 | Pulmonary Progress Note ---
Subjective Time Seen by a Provider: 06:00 Subjective/Events-last exam PT is now comfort care only. Sepsis Event Evaluation Height, Weight, BMI Height: 6'1.00" Weight: 196lbs. 4.0oz. [id number]; 22.2 BMI Method: Focused Exam Lactate Level 07/28/18 14:40: Lactic Acid Level 1.18 07/28/18 20:27: Lactic Acid Level 1.91 07/29/18 04:22: Lactic Acid Level 2.00 Exam Exam Vital Signs Date Time Temp Pulse Resp B/P (MAP) Pulse Ox O2 Delivery O2 Flow Rate FiO2 07/30/18 22:09 Nasal Cannula 2.00 07/30/18 19:00 94 07/30/18 18:00 87 17 135/79 (97) 99 Mechanical Ventilator 35.00 07/30/18 17:00 96 17 125/53 (77) 98 Mechanical Ventilator 35.00 07/30/18 16:49 Mechanical Ventilator 07/30/18 16:00 87 22 136/70 (92) 93 Mechanical Ventilator 35.00 07/30/18 15:37 97.2 07/30/18 15:00 96 15 137/69 (91) 94 Mechanical Ventilator 35.00 07/30/18 14:11 90 24 93 35 07/30/18 14:00 90 25 153/80 (104) 96 Mechanical Ventilator 35.00 07/30/18 13:00 93 41 135/68 (90) 97 Mechanical Ventilator 35.00 119/70 (86) 07/30/18 12:24 95 07/30/18 12:06 98.0 97 18 117/68 94 Mechanical Ventilator 35.00 07/30/18 12:00 Mechanical Ventilator 07/30/18 12:00 96 16 118/56 (76) 95 Mechanical Ventilator 35.00 117/68 (84) 07/30/18 11:24 98.0 07/30/18 11:00 100 18 118/53 (74) 94 Mechanical Ventilator 35.00 114/66 (82) 07/30/18 10:18 87 20 100 35 07/30/18 10:00 89 20 116/55 (75) 100 Mechanical Ventilator 35.00 132/72 (92) 07/30/18 09:17 85 07/30/18 09:00 113 07/30/18 09:00 113 24 108/52 (70) 96 Mechanical Ventilator 35.00 140/98 (112) 07/30/18 08:27 86 07/30/18 08:25 85 I & O 07/31/18 07:00 Intake Total 2300 ml Output Total 300 ml Balance 2000 ml Height & Weight Height: 6'1.00" Weight: 196lbs. 4.0oz. [id number]; 22.2 BMI Method: General Appearance: Chronically ill, Other (sedated) HEENT: PERRL/EOMI Respiratory: Accessory Muscle Use, Crackles, Decreased Breath Sounds, Respiratory Distress Cardiovascular: No Murmur, Tachycardia Gastrointestinal: soft, distended (slightly), other Extremity: Slow Capillary Refill, Other (Right leg is cool to touch, mottled and cannot palpate pulse (I'm told they get one with doppler) - this appears worse than yesterday and is same side they did cath from, left is warm and swollen ) Skin: Cool, Damp Results Lab Laboratory Tests 07/29/18 12:54 07/29/18 21:52 07/30/18 03:35 Assessment/Plan Assessment/Plan Acute respiratory failure - Doubt PE probable PVD - RLE is cooler then LLE Iatrogenic perforated Viscus S/p surgery NSTEMI s/p heart cath yesterday -EF 25% Acute renal failure with metabolic acidosis Systolic CHF with EF 25% Hypotension r/o cardiogenic shock vs hypovolemia Hypernatremia/hyperchloremia Anemia -Monitor Family decided to make pt [employer] yesterday. PT is currently extubated and appears comfortable. I am going to sign off please call with any questions. CHRISTOPHER FARNSWORTH DO Jul 31, 2018 08:25
--- NOTE | 2018-07-31 14:12 | NUR ---
1345 [facility] phoned with instructions since patient is a donor candidate. Must place ice on torso and saline in eyes bilaterally. Patient currently in 428. 4th floor staff notified.
--- NOTE | 2018-07-31 16:52 | NUR ---
PHONED GUEST HOME ESTATES AND SPOKE WITH JUSTINE AND INFORMED PATIENTS BELONGINGS IN BAG/WHEELCHAIR/CUSHION NEED TO BE PICKED UP AND PUT AT SECONDARY NURSE DESK BY ROOM 431. INFORMED MADELIN RIVERAHARVEST CREW SUPERVISOR OF BELONGINGS TO BE PICKED UP.
[2018-08-02] MEDS ORDERED: SCOPOLAMINE PATCH REMOVAL TP SCH (18:30)
== END 2018-07-31 07:24 | disposition expired | DRG 329 ==
LOC: SDC 07:50 → 4TH 15:10 → SDC 07-26 07:59 → 4TH 07-26 08:00 → ICU 07-28 10:15
PROVIDERS: ADMIT Surgery; ATTEND Surgery
PROC: 0DN84ZZ Release Small Intestine, Percutaneous Endoscopic Approach (ICD-10-PCS; principal; 2018-07-26)
PROC: 0DNE4ZZ Release Large Intestine, Percutaneous Endoscopic Approach (ICD-10-PCS; 2018-07-26)
PROC: 0DNE0ZZ Release Large Intestine, Open Approach (ICD-10-PCS; 2018-07-26)
PROC: 0DQ84ZZ Repair Small Intestine, Percutaneous Endoscopic Approach (ICD-10-PCS; 2018-07-26)
PROC: 0DQE0ZZ Repair Large Intestine, Open Approach (ICD-10-PCS; 2018-07-26)
PROC: 0DQ80ZZ Repair Small Intestine, Open Approach (ICD-10-PCS; 2018-07-28)
PROC: 5A1945Z Respiratory Ventilation, 24-96 Consecutive Hours (ICD-10-PCS; 2018-07-28)
PROC: 4A023N7 Measurement of Cardiac Sampling and Pressure, Left Heart, Percutaneous Approach (ICD-10-PCS; 2018-07-29)
PROC: B2111ZZ Fluoroscopy of Multiple Coronary Arteries using Low Osmolar Contrast (ICD-10-PCS; 2018-07-29)
PROC: B2151ZZ Fluoroscopy of Left Heart using Low Osmolar Contrast (ICD-10-PCS; 2018-07-29)
DX: K66.0 Peritoneal adhesions (postprocedural) (postinfection) (principal); K91.71 Accidental puncture and laceration of a digestive system organ or structure during a digestive system procedure; I21.4 Non-ST elevation (NSTEMI) myocardial infarction; R57.0 Cardiogenic shock; J96.00 Acute respiratory failure, unspecified whether with hypoxia or hypercapnia; K65.1 Peritoneal abscess; N17.0 Acute kidney failure with tubular necrosis; Z66 Do not resuscitate; Z51.5 Encounter for palliative care; E87.2 Acidosis; I11.0 Hypertensive heart disease with heart failure; I50.21 Acute systolic (congestive) heart failure; J93.9 Pneumothorax, unspecified; N39.0 Urinary tract infection, site not specified; I69.352 Hemiplegia and hemiparesis following cerebral infarction affecting left dominant side; I25.119 Atherosclerotic heart disease of native coronary artery with unspecified angina pectoris; E86.1 Hypovolemia; J44.9 Chronic obstructive pulmonary disease, unspecified; K21.9 Gastro-esophageal reflux disease without esophagitis; F17.210 Nicotine dependence, cigarettes, uncomplicated; I48.91 Unspecified atrial fibrillation; G62.9 Polyneuropathy, unspecified; M19.91 Primary osteoarthritis, unspecified site; F32.9 Major depressive disorder, single episode, unspecified; F41.9 Anxiety disorder, unspecified; M54.9 Dorsalgia, unspecified; Z95.5 Presence of coronary angioplasty implant and graft; Z87.19 Personal history of other diseases of the digestive system; Z79.01 Long term (current) use of anticoagulants; Z96.641 Presence of right artificial hip joint
CPT/HCPCS: 36415; 71045; 71046; 74018; 80048; 81000; 82040; 82805; 82962; 83605; 83735; 83880; 84100; 84132; 84478; 84484; 85007; 85018; 85025; 85027; 85610; 85730; 87040; 87070; 87077; 87081; 87088; 87186; 87205; 93005; 93306; 93458; 93925; 93970; 94002; 94003; 94640; 94664; 94760; 94799